=== PATIENT | female | born 1950 | race Native Hawaiian/Other Pacific Islander ===

== ENCOUNTER 2021-08-07 13:32 | Inpatient (IN) | payer MEDICARE, SELFPAY ==
[2021-08-07] VITALS (9 sets, daily range): BP systolic 117–167; BP diastolic 74–100; PULSE 99–110; RESP 15–20; TEMP 36.3–37.2; O2SAT 97–100; BMI 36.3; BMI 32.7; BMI 32.9
--- NOTE | 2021-08-07 14:47 | RAD_ITS ---
STUDY: X-RAY - LEFT FOOT CLINICAL: Female, 71 years old. wound TECHNIQUE: 3 view(s) of the foot. COMPARISON: Left foot x-ray dated May 22, 2017. FINDINGS: Mild to moderate cortical and intramedullary erosion has occurred at the needle side of the base of the proximal phalanx of the great toe and the medial side of the head and neck of the first metatarsal bone, compatible with osteomyelitis. Mild osteomyelitis is also seen on the lateral side of the base of the proximal phalanx of the great toe. The overlying soft tissue is indurated small amount of subcutaneous gas and is thickened and edematous. Bandage material is also present over this region. Bony structures are diffusely demineralized. The phalanges of the fifth digit have been previously amputated with exception of the base fragment proximal phalanx. The medial and lateral sides of the head of the fifth metatarsal bone are partially absent, most likely due to prior osteomyelitis, since the margins are corticated. Atherosclerotic calcifications are present. Normal talus, calcaneus, and tarsal bones. Normal visualized subtalar, talonavicular, calcaneocuboid, tarsal and tarsometatarsal articulations. RAD/Foot min 3 Views IMPRESSION: 1. Osteomyelitis of the base of the proximal talus of the great toe and the head and neck of the first metatarsal bone. Electronically Signed: Marco Cruz MD at 16:53 EDT , Service support ,
--- NOTE | 2021-08-07 14:49 | EX.ED.DYSGE1 ---
HPI History of Present Illness Chief Complaint: Wound Detail of Chief Complaint: Wound to left foot Informant: patient Narrative Narrative: Patient presents with complaint of wound to the left foot that she has had for about a month. Patient has history of chronic ulcers to her feet. She is here from [place] and has been in town for about a week but her daughter states that she may not go back to [place]. Prior to coming to [place] she had recently had resection of her left small toe due to history of osteomyelitis. Daughter states that she has a wound on her left foot over the first MTP joint that continues to bleed and she noticed pus from it. No fevers. 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 [facility] Medical History (Updated 08/07/21 @ 16:[address] Neetu Guerrier DO) Myocardial infarction Home Medications atorvastatin 80 mg PO QHS #30 tab 04/22/17 [Rx Last Taken Unknown] clopidogrel 75 mg PO DAILY #30 tab 04/22/17 [Rx Last Taken Unknown] multivitamin with folic acid [Thera] 1 tab PO DAILYCM #30 tab 04/22/17 [Rx Last Taken Unknown] nortriptyline 50 mg PO QHS #30 capsule 04/22/17 [Rx Last Taken Unknown] polyethylene glycol 3350 17 g PO DAILY #30 packet 04/22/17 [Rx Last Taken Unknown] Levemir FlexTouch U-100 Insuln 5 units SUBCUT DAILY 08/07/21 [History Last Taken Unknown] amlodipine 10 mg PO DAILY 08/07/21 [History Last Taken Unknown] aspirin 81 mg PO DAILY 08/07/21 [History Last Taken Unknown] docusate sodium 200 mg PO BID 08/07/21 [History Last Taken Unknown] furosemide 40 mg PO DAILY 08/07/21 [History Last Taken Unknown] gabapentin 30 mg PO BID 08/07/21 [History Last Taken Unknown] gabapentin 800 mg PO QHS 08/07/21 [History Last Taken Unknown] insulin aspart U-100 [Novolog Flexpen U-100 Insulin] 0 - 10 unit SUBCUT 4X/DAY 08/07/21 [History Last Taken Unknown] levothyroxine 200 mcg PO DAILY@0600 08/07/21 [History Last Taken Unknown] metoprolol tartrate 25 mg PO BID 08/07/21 [History Last Taken Unknown] pantoprazole 40 mg PO DAILY 08/07/21 [History Last Taken Unknown] potassium chloride [Micro-K 10] 10 meq PO DAILY 08/07/21 [History Last Taken Unknown] Allergy/AdvReac Type Severity Reaction Status Date / Time baclofen AdvReac Other Verified 08/07/21 13:36 Social History Smoking Status: Never smoker ROS ROS ED Constitutional Constitutional ED: Reports systems reviewed and no addt'l complaints, except as documented; Denies body ache(s), change in weight or chills Eyes Eyes: Denies acute decrease in peripheral vision, change in vision, double vision or loss of vision ENT ENT ED: Reports none; Denies ear pain, lip swelling, loss taste/smell, neck pain, otalgia or sore throat Cardiovascular Cardiovascular: Reports none; Denies abdominal pain, chest pain with activity, leg edema, lightheadedness, palpitations, rapid heart rate or syncope Respiratory/Chest Respiratory/Chest: Reports none; Denies change in mental status, dry cough, dyspnea, hemoptysis, shortness of breath at rest or shortness of breath with exertion Gastrointestinal Gastrointestinal: Reports none; Denies abdominal pain, change in stool character, diarrhea, hematemesis, hematochezia, melena, rectal bleeding or vomiting Genitourinary Genitourinary ED: Reports none; Denies abdominal discomfort, anuria, dysuria, genital pain or polyuria Musculoskeletal Musculoskeletal: Reports none and other Details: Left foot diabetic wound ; Denies arthralgias, back pain, difficulty walking, extremity pain, muscle weakness or myalgias Integumentary Reports none; Denies abscess or rash Neurologic Neurologic: Reports none; Denies abnormal gait, confusion, focal weakness, frequent falls, headache(s), loss of vision, numbness, paresthesias, radicular pain, vertigo or weakness Psychiatric Psychiatric: Reports systems reviewed and no addt'l complaints, except as documented and none; Denies behavioral changes, confusion, difficulty concentrating, hallucinations, suicidal ideation, tactile hallucinations or visual hallucinations Endocrine Endocrinology: Denies none, cold intolerance, excessive sweating, fatigue or heat intolerance Hematologic/Lymphatic Hematologic/Lymphatic: Reports none; Denies anemia, easy bleeding or easy bruising Allergic/Immunologic Allergic/Immunologic ED: Denies as per HPI, none, lip swelling, mouth swelling, throat swelling, tongue swelling or hives EXAM Physical Exam Const Vital Signs: 08/07/21 13:33 08/07/21 15:40 08/07/21 16:04 Temperature 97.4 F L 98.9 F 98.9 F Temperature Source Temporal Oral Oral Pulse Rate 99 101 H 106 H Respiratory Rate 18 20 H 15 Blood Pressure 123/74 H 167/79 H 159/83 H Blood Pressure Mean 90 108 108 Pulse Ox 99 97 99 Oxygen Delivery Method Room Air Room Air Room Air Positive well nourished and well developed General Appearance ED: well developed and NAD HEENT Reports TM's clear and moist mucous membranes normocephalic and atraumatic; Negative for trauma or tenderness Tympanic Membrane ED: Yes TM's clear Eyes PERRL and EOMs intact bilaterally General Eye ED: Negative for pale conjunctiva or scleral icterus Neck no lymphadenopathy, supple and no JVD General: Negative for tenderness Chest Wall inspection of chest normal and palpation of chest normal Chest: Negative for tenderness Resp normal respiratory effort and clear to auscultation bilaterally Effort and Inspection: Negative for respiratory distress or pain with movement Auscultation: Negative for rhonchi, wheezes or diminished lung sounds Cardio regular rate, regular rhythm, S1 normal heart sound, S2 normal heart sound and no murmurs Peripheral Pulses: pulses 2+ throughout GI normal to inspection, nondistended, normoactive bowel sounds, soft to palpation, non-tender, non-distended and no masses Back/Spine no CVA tenderness and no thoracic nor lumbar tenderness Extremity Extremity Narrative: Left foot-patient has a large open wound over the lateral aspect of the first MTP joint that is foul-smelling and having bloody drainage from it. Patient also has a small open wound to the plantar aspect of the midfoot. Patient also with recent resection to the left small toe. Patient has decreased sensation to light touch. General Extremety ED: Negative for edema General Extremity: Negative for edema Neuro oriented x3, CN's II-XII intact bilaterally, no sensory deficits noted and gait normal Sensorium / Orientation: awake, alert, oriented to person, oriented to place and oriented to time Motor Exam: strength 5/5 throughout and strength abnormal Psych mental status grossly normal Skin no rashes or lesions noted and no wounds MDM MDM MDM Narrative Medical decision making narrative: Patient started on Ancef and vancomycin IV. X-ray shows osteomyelitis of the first metatarsal and phalanx of the great toe. Case will be discussed with hospitalist evaluate for admission. Patient will likely require podiatry consultation. Patient also with diabetic foot wounds to the left foot. Patient had wound cultures ordered. Lab Data Attestation: I reviewed the patient's lab results. Labs: Laboratory Results - last 24 hr 08/07/21 08/07/21 08/07/21 15:11 15:11 15:11 WBC 11.5 H RBC 3.53 L Hgb 9.6 L Hct 30.5 L MCV 86.4 MCH 27.2 MCHC 31.5 L RDW Std Deviation 44.0 H RDW Coeff of Jenna 14.1 Plt Count 391 MPV 8.5 Immature Gran % (Auto) 0.700 Neut % (Auto) 80.4 H Lymph % (Auto) 11.4 L [place] % (Auto) 5.2 Eos % (Auto) 1.9 Baso % (Auto) 0.4 Absolute Neuts (auto) 9.3 H Absolute Lymphs (auto) 1.32 Nucleated RBC % 0 Sodium 135 L Potassium 4.0 Chloride 102 Carbon Dioxide 23.0 Anion Gap 10 BUN 61 H Creatinine 1.95 H Estim Creat Clear Calc 20.93 Est GFR (MDRD) Af Amer 33 L Est GFR (MDRD) Non-Af 27 L BUN/Creatinine Ratio 31.3 H Glucose 215 H Lactic Acid 2.1 H* Calcium 9.0 C-React Prot Ext Range 106.00 H Radiography Diagnostic Testing: Radiology Impression Foot X-Ray 08/07/21 14:47 IMPRESSION: 1. Osteomyelitis of the base of the proximal talus of the great toe and the head and neck of the first metatarsal bone. Electronically Signed: Marco Cruz MD at 16:53 EDT , Service support , Three-view x-rays of the left foot obtained interpreted by myself as osteomyelitis of the head of the first metatarsal. Radiology in agreement. Discharge Plan Triage Chief Complaint: Wound ED Provider: Neetu Guerrier Dx/Rx/DC Orders Clinical Impression: Diabetic foot infection, Acute osteomyelitis of left foot Prescriptions: No Action atorvastatin 80 MG tablet 80 mg PO QHS Qty: 30 RF: 0 polyethylene glycol 3350 17 GM powder in packet 17 g PO DAILY Qty: 30 RF: 0 nortriptyline 25 MG capsule 50 mg PO QHS Qty: 30 RF: 0 clopidogrel 75 MG tablet 75 mg PO DAILY Qty: 30 RF: 0 multivitamin with folic acid [Thera] 1 TABLET tablet 1 tab PO DAILYCM Qty: 30 RF: 0 furosemide 40 mg Tablet 40 mg PO DAILY RF: 0 potassium chloride [Micro-K 10] 10 mEq Capsule, Extended Release 10 meq PO DAILY RF: 0 amlodipine 10 mg Tablet 10 mg PO DAILY RF: 0 docusate sodium 100 mg Capsule 200 mg PO BID RF: 0 insulin aspart U-100 [Novolog Flexpen U-100 Insulin] 100 unit/mL (3 mL) Insulin Pen 0 - 10 unit SUBCUT 4X/DAY RF: 0 metoprolol tartrate 25 mg Tablet 25 mg PO BID RF: 0 aspirin 81 mg Capsule 81 mg PO DAILY RF: 0 gabapentin 600 MG tablet 30 mg PO BID RF: 0 pantoprazole 20 MG tablet,delayed release (DR/EC) 40 mg PO DAILY RF: 0 levothyroxine 150 MCG tablet 200 mcg PO DAILY@0600 RF: 0 gabapentin 300 MG capsule 800 mg PO QHS RF: 0 Levemir FlexTouch U-100 Insuln 100 UNITS/ML insulin pen 5 units subcut DAILY RF: 0 Primary Care Provider: Elia Ceja Chi Referrals: Elia Ceja Chi, MD [Primary Care Provider] - Disposition Disposition: Acute Care Hospital [facility]
[2021-08-07 15:23] LABS: Absolute Lymphocyte Count 1.32 X10^3/uL (0.83-4.51); Absolute Neutrophil Count 9.3 X10^3/uL (2.0-7.7); Basophil# 0.05 X10^3/uL; Basophil% 0.4 % (0-1); Eosinophil# 0.22 X10^3/uL; Eosinophils% 1.9 % (0-5); Hematocrit 30.5 % (37-47); Hemoglobin 9.6 g/dL (12.0-15.0); Lymphocyte # 1.32 X10^3/ul (0.83-4.51); Lymphocyte % 11.4 % (19-41); Mean Corp Hgb Conc 31.5 g/dL (32-36); Mean Corpuscular Hgb 27.2 pg (27.0-32.0); Mean Corpuscular Volume 86.4 fL (81-99); Mean Platelet Vol. 8.5 fl (6.2-12.0); Monocyte% 5.2 % (0-10); NRBC Flagged by Analyzer 0 % (0-5); Neutrophil # 9.27 X10^3/uL (2.7-7.7); Neutrophil % 80.4 % (47-70); Platelet Count 391 K/mm3 (150-450); RBC Distribution Width CV 14.1 % (11.6-14.6); Red Blood Count 3.53 M/mm3 (4.2-5.4); White Blood Count 11.5 K/mm3 (4.4-11.0)
[2021-08-07 15:36] LABS: Anion Gap 10 (5-15); BUN 61 mg/dL (7-18); BUN/Creat Ratio 31.3 RATIO (10-20); Chloride 102 mmol/L (98-107); Creatinine, Serum 1.95 mg/dL (0.55-1.02); EST Glomerular Filtration Rate 27 mL/min (>60); Est Glom Filt Rate - Afr Amer 33 mL/min (>60); Estimated Creatinine Clearance 20.93 ml/min; Glucose 215 mg/dL (74-106); Sodium Level 135 mmol/L (136-145)
[2021-08-07 15:58] LABS: Lactic Acid 2.1 mmol/L (0.4-1.9)
[2021-08-07] MEDS: Cefazolin 1 GM/50 ML BAG IV (16:06)
--- NOTE | 2021-08-07 17:37 | PCM.HP.STD ---
HPI - General General Date of Admission: 08/07/21 HPI Narrative EBONIE WOLF, is a 71 F who presents with worsening a left lower extremity wound. She does have a history of diabetic foot ulcers that has been previously treated here at this facility a couple years ago. This when she started noticing about a month ago while she was living in [place] states that they did not do anything about it there at the wound center other than just cleaning the wound. The daughter brought her in today because every time she was helping her mom she noticed that blood and pus was coming out of the wound. She tried to call her PCP but could not get through and therefore called the wound center who recommended to go to an urgent care but daughter did not know where the urgent care was so they brought her here. She is afebrile without leukocytosis though states that she has had chills. Foot x-ray of the left shows an osteomyelitis. Per the daughter she has had CABG with multiple heart stents as well as multiple lower extremity stents. [facility] Medical History Chest pain Chronic headaches Current use of insulin Depression Difficulty chewing Difficulty swallowing DVT (deep venous thrombosis) Dyspnea High cholesterol History of stress test Irregular heartbeat Myocardial infarction Paralysis Post-menopausal Renal disease Restless legs Sleep apnea Status post amputation of toe of left foot Stroke Thyroiditis Ulcer Home Medications atorvastatin 80 mg PO QHS #30 tab 04/22/17 [Rx Last Taken Unknown] clopidogrel 75 mg PO DAILY #30 tab 04/22/17 [Rx Last Taken Unknown] multivitamin with folic acid [Thera] 1 tab PO DAILYCM #30 tab 04/22/17 [Rx Last Taken Unknown] nortriptyline 50 mg PO QHS #30 capsule 04/22/17 [Rx Last Taken Unknown] polyethylene glycol 3350 17 g PO DAILY #30 packet 04/22/17 [Rx Last Taken Unknown] Levemir FlexTouch U-100 Insuln 5 units SUBCUT DAILY 08/07/21 [History Last Taken Unknown] amlodipine 10 mg PO DAILY 08/07/21 [History Last Taken Unknown] aspirin 81 mg PO DAILY 08/07/21 [History Last Taken Unknown] docusate sodium 200 mg PO BID 08/07/21 [History Last Taken Unknown] furosemide 40 mg PO DAILY 08/07/21 [History Last Taken Unknown] gabapentin 30 mg PO BID 08/07/21 [History Last Taken Unknown] gabapentin 800 mg PO QHS 08/07/21 [History Last Taken Unknown] insulin aspart U-100 [Novolog Flexpen U-100 Insulin] 0 - 10 unit SUBCUT 4X/DAY 08/07/21 [History Last Taken Unknown] levothyroxine 200 mcg PO DAILY@0600 08/07/21 [History Last Taken Unknown] metoprolol tartrate 25 mg PO BID 08/07/21 [History Last Taken Unknown] pantoprazole 40 mg PO DAILY 08/07/21 [History Last Taken Unknown] potassium chloride [Micro-K 10] 10 meq PO DAILY 08/07/21 [History Last Taken Unknown] Allergy/AdvReac Type Severity Reaction Status Date / Time baclofen AdvReac Other Verified 08/07/21 13:36 Family History (Updated 08/07/21 @ 17:[address] Pritesh Cervantes MD) Other Diabetes Heart disease Surgical History History of heart artery stent S/P tubal ligation Status post arterial stent Status post coronary artery bypass graft Status post coronary artery stent placement Status post hysterectomy Social History Smoking Status: Never smoker ROS Constitutional Constitutional: Reports chills; Denies fatigue, fever(s) or malaise Eyes Eyes: Denies blurry vision ENT HEENT: Denies headache(s) or nasal discharge Cardiovascular Cardiovascular: Denies chest pain, dyspnea on exertion or syncope Respiratory/Chest Respiratory/Chest: Denies cough, shortness of breath at rest or shortness of breath with exertion Gastrointestinal Gastrointestinal: Denies constipation, diarrhea, nausea or vomiting Genitourinary Genitourinary: Denies dysuria Integumentary Integumentary: Reports wounds Neurologic Neurologic: Denies focal weakness, numbness or tremor(s) Psychiatric Psychiatric: Denies anxiety or depression Vital Signs Vital Signs Vital Signs: 08/07/21 13:33 08/07/21 15:40 08/07/21 16:04 Temperature 97.4 F L 98.9 F 98.9 F Temperature Source Temporal Oral Oral Pulse Rate 99 101 H 106 H Respiratory Rate 18 20 H 15 Blood Pressure 123/74 H 167/79 H 159/83 H Blood Pressure Mean 90 108 108 Pulse Ox 99 97 99 Oxygen Delivery Method Room Air Room Air Room Air 08/07/21 17:15 Temperature 98.8 F Temperature Source Oral Pulse Rate 99 Respiratory Rate 18 Blood Pressure 150/92 H Blood Pressure Mean 111 Pulse Ox 97 Oxygen Delivery Method Room Air Weight Weight: 198 lb 6.656 oz Body Mass Index (BMI) 36.3 Physical Exam Const alert, oriented x3 and no apparent distress General Appearance: cooperative HEENT normocephalic and moist oral mucous membranes Eyes PERRL, EOMs intact bilaterally and conjunctivae normal Neck supple and no JVD Resp normal respiratory effort, no retractions, no use of accessory muscles and clear to auscultation bilaterally Auscultation: Negative for crackles, rales, rhonchi or wheezes Cardio regular rate, regular rhythm, S1 normal heart sound, S2 normal heart sound and no murmurs GI soft to palpation, non-tender and non-distended; Negative for hepatosplenomegaly Extremity no clubbing, cyanosis or edema Skin Skin Narrative: Left foot wound dressed Neuro no focal motor deficits and no sensory deficits noted Psych affect normal Appearance: appropriate Results Lab / Micro Data Result Diagrams: 08/08/21 05:04 08/08/21 05:04 Labs: Laboratory Results - last 24 hr 08/07/21 15:11: WBC 11.5 H, RBC 3.53 L, Hgb 9.6 L, Hct 30.5 L, MCV 86.4, MCH 27.2, MCHC 31.5 L, RDW Std Deviation 44.0 H, RDW Coeff of Jenna 14.1, Plt Count 391, MPV 8.5, Immature Gran % (Auto) 0.700, Neut % (Auto) 80.4 H, Lymph % (Auto) 11.4 L, [place] % (Auto) 5.2, Eos % (Auto) 1.9, Baso % (Auto) 0.4, Absolute Neuts (auto) 9.3 H, Absolute Lymphs (auto) 1.32, Nucleated RBC % 0 08/07/21 15:11: Sodium 135 L, Potassium 4.0, Chloride 102, Carbon Dioxide 23.0, Anion Gap 10, BUN 61 H, Creatinine 1.95 H, Estim Creat Clear Calc 20.93, Est GFR (MDRD) Af Amer 33 L, Est GFR (MDRD) Non-Af 27 L, BUN/Creatinine Ratio 31.3 H, Glucose 215 H, Calcium 9.0, C-React Prot Ext Range 106.00 H 08/07/21 15:11: Lactic Acid 2.1 H* Radiology Impression Foot X-Ray 08/07/21 14:47 IMPRESSION: 1. Osteomyelitis of the base of the proximal talus of the great toe and the head and neck of the first metatarsal bone. Electronically Signed: Marco Cruz MD at 16:53 EDT , Service support , Assessment & Plan Assessment/Plan (1) Osteomyelitis of great toe of left foot: (2) Ulcer of left foot due to type 2 diabetes mellitus: (3) Peripheral vascular disease: PLAN: 1. Osteomyelitis of the great toe secondary to diabetic foot ulcer/type 2 diabetes with peripheral neuropathy/peripheral vascular disease -Continue with vancomycin and cefepime -Continue with IV fluids, will hold her Lasix temporarily kidney function is 1.95 the last values we have are from 2017 therefore not sure if this is her new baseline or an PEDRO -We will consult infectious disease as well as podiatry -We will obtain ABIs -Blood cultures and wound cultures are pending -We will place her on sliding scale insulin, as well long-acting insulin -Accu-Cheks AC at bedtime, will adjust as necessary -Continue with her gabapentin 2. CAD status post CABG and stents/peripheral vascular disease/HTN/HLD -We will continue with her home blood pressure medications -We will hold her aspirin and Plavix in preparation of surgery -Continue with Lipitor 3. Hypothyroidism -Stable -Continue Synthroid 4. GERD -Stable -Continue with PPI DVT: Heparin Charges/Coding Visit Charges Inpatient E&M: 13219 Init Hosp L3
--- NOTE | 2021-08-07 17:47 | ART_ITS ---
Reason For Study: PVD Procedure A bilateral lower extremity continuous wave Doppler with analog waveform analysis and ankle brachial indexes. Left Segmental Pressures Left brachial= 157mmHg. Left posterior tibial artery = 79mmHg. Right Segmental Pressures Right posterior tibial artery = 59mmHg. Right dorsalis pedis artery = >254mmHg. Right digit = 26 mmHg. Indices The right ankle brachial index by the posterior tibial artery is 0.38. The right ankle brachial index by the dorsalis pedis is NC. The right digital-brachial index is 0.17. The left ankle brachial index by the posterior tibial artery is 0.50. VL/Ankle Brachial Index Interpretation Summary Limited abnormal bilateral lower extremity noninvasive arterial exam at rest Right PT ankle-brachial index 0.38 with monophasic right posterior tibial and d orsalis pedis Doppler waveforms consistent with severe occlusive disease Left posterior tibial ankle-brachial index 0.5 with a monophasic left posterior tibial and absent left dorsalis pedis Doppler waveform consistent with severe occlusive disease Ordering Physician: Pritesh Cervantes Referring Physician: Elia Ceja Chi Performed By: Fatmata Abarca RDCS/RVT
--- NOTE | 2021-08-07 18:05 | CON.PCM_ITS ---
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 I reviewed her emergency room and hospitalist notes. She has a clinical infected foot with ulcers to the medial lateral forefoot and also the anterior ankle. Her multiple comorbidities are noted. Debridement was performed today with a medical scissor and forceps to remove necrotic subcutaneous and muscle tissue, biofilm, fibrous, and slough. Pressure was applied to maintain hemostasis. She had discomfort was controlled and short-lived. The following work up and care recommendations were made: Dressing: Betadine wet-to-dry gauze was applied this evening. Offload: To place weight on heel and remain in bed for the most part at this time Vascular: She has known peripheral vascular disease and her medical records are requested. She has significant small vessel calcification even seen on her foot x-rays. She is at risk for limb loss and appears she would benefit from an amputation. Medical records were requested to determine if a below-knee amputation versus a transmetatarsal amputation will be more appropriate. If these records are not obtainable in a timely manner, a debridement of the foot will still be recommended to address her acute limb and life-threatening infection. Pain: Controlled with oral and IV pain medication Host factors: She is uncontrolled diabetes and known peripheral vascular disease amongst her other comorbidities. Medical management per hospitalist is greatly appreciated. Nutritional supplementation was ordered to optimize healing. Imagin foot x-rays were reviewed without acute fracture or dislocation. There is osseous destruction adjacent to the medial first metatarsal head ulcer site and to the fifth toe amputation site. There is no soft tissue emphysema. Significant small vessel calcification is noted. I recommend an MRI for further work-up of extent of osteomyelitis and other limb abscess evaluation. She relates she has had other MRIs and does not have any maintained vascular clips. She denies claustrophobia. Labs: She has an elevated lactic acid and white blood cell count. Other diagnostic data was also reviewed. Infection: She was started on vancomycin and cefepime. Deep wound cultures were obtained including aerobic, anaerobic, and MRSA PCR. ID on consult and input w ill be greatly appreciated. She already has limb loss and her current infected ulcer status is limb and life-threatening. Treatment options include antibiotics and wound care. It appears pertinent to at the very least perform an aggressive debridement to remove the purulence and necrotic tissue. Surgical considerations: I recommend proceeding forward with further work-up this evening and going to the operating room tomorrow for versa jet debridement versus open transmetatarsal amputation. She may even be better served with a below-knee amputation. N.p.o. Anticoagulation medication held (heparin and Plavix). Consents will be signed after surgical procedure is selected. Case was briefly reviewed with hospitalist. I answered all the patient's questions. Thank you for the consultation. Please do not hesitate to call if you have any questions. Cristal Schmitz DPM, [facility] [phone] HPI Consult Data Date of Consult: 08/07/21 HPI Narrative HPI Narrative: EBONIE WOLF, is a 71 F presents to [facility] for left foot infection. She said that this has been present for 1 to 1-1/2 months per her knowledge and she has been seen at a wound care center with a nail technician teacher in [place]. She is returned home to visit other family members and has become ill. There is an increased odor bleeding and purulent drainage from her left foot. She denies new injury. Patient is participating in a minimal manner in the exam possibly secondary to her stroke status. Her daughter is bedside and does report she had some stents placed in her left lower leg within the past year. She provided the hospitals in which she was seen at and her medical records have been requested. This patient is previously known to me in 2017 for a heel ulcer that got infected. [facility] Medical History (Updated 08/07/21 @ 17:[address] Pritesh Cervantes MD) Myocardial infarction Status post amputation of toe of left foot Home Medications atorvastatin 80 mg PO QHS #30 tab 04/22/17 [Rx Last Taken Unknown] clopidogrel 75 mg PO DAILY #30 tab 04/22/17 [Rx Last Taken Unknown] multivitamin with folic acid [Thera] 1 tab PO DAILYCM #30 tab 04/22/17 [Rx Last Taken Unknown] nortriptyline 50 mg PO QHS #30 capsule 04/22/17 [Rx Last Taken Unknown] polyethylene glycol 3350 17 g PO DAILY #30 packet 04/22/17 [Rx Last Taken Unknown] Levemir FlexTouch U-100 Insuln 5 units SUBCUT DAILY 08/07/21 [History Last Taken Unknown] amlodipine 10 mg PO DAILY 08/07/21 [History Last Taken Unknown] aspirin 81 mg PO DAILY 08/07/21 [History Last Taken Unknown] docusate sodium 200 mg PO BID 08/07/21 [History Last Taken Unknown] furosemide 40 mg PO DAILY 08/07/21 [History Last Taken Unknown] gabapentin 30 mg PO BID 08/07/21 [History Last Taken Unknown] gabapentin 800 mg PO QHS 08/07/21 [History Last Taken Unknown] insulin aspart U-100 [Novolog Flexpen U-100 Insulin] 0 - 10 unit SUBCUT 4X/DAY 08/07/21 [History Last Taken Unknown] levothyroxine 200 mcg PO DAILY@0600 08/07/21 [History Last Taken Unknown] metoprolol tartrate 25 mg PO BID 08/07/21 [History Last Taken Unknown] pantoprazole 40 mg PO DAILY 08/07/21 [History Last Taken Unknown] potassium chloride [Micro-K 10] 10 meq PO DAILY 08/07/21 [History Last Taken Unknown] Allergy/AdvReac Type Severity Reaction Status Date / Time baclofen AdvReac Other Verified 08/07/21 13:36 Family History (Updated 08/07/21 @ 17:[address] Pritesh Cervantes MD) Other Diabetes Heart disease Surgical History (Updated 08/07/21 @ 17:[address] Pritesh Cervantes MD) Status post arterial stent Status post coronary artery bypass graft Status post coronary artery stent placement Status post hysterectomy Social History Smoking Status: Never smoker ROS Constitutional Constitutional: Reports lethargy; Denies chills Cardiovascular Cardiovascular: Reports weakness in extremities Gastrointestinal Gastrointestinal: Denies nausea Musculoskeletal Musculoskeletal: Reports muscle weakness Integumentary Integumentary: Reports bleeding lesions and wounds; Denies erythema Neurologic Neurologic: Reports paresthesias Hematologic/Lymphatic Hematologic/Lymphatic: Reports easy bleeding Physical Exam Const alert and oriented x3 General Appearance: cooperative HEENT normocephalic Extremity Extremity Narrative: No calf tenderness Diminished pulses Muscle wasting noted Left open fifth toe amputation with exposed bone General Extremity: edema and no tenderness to palpation of joints or extremities; Negative for cyanosis Skin Skin Narrative: There is bogginess to the dorsal forefoot with purulence expressed from the medial first metatarsal head site. There is necrotic strong malodor and devitalized 100% base to the medial first metatarsal head and also to the open fifth nutation site. Medial ulcer site has dorsal tunneling with purulence expressed from a boggy adjacent area to the dorsal forefoot and midfoot. Her skin is hairless and atrophic. There is also skin discontinuity to the anterior ankle that is granular with fibrous tissue. Hematogenous drainage is noted from the medial forefoot and anterior ankle wounds and to a lesser degree to the lateral forefoot. There is actually no streaking. Neuro Neuro Narrative: lack of normal epicritic sensation via light touch is consistent with neuropathy status. Her exam is painful including the debridement Psych cooperative and affect normal Lab / Micro Data Result Diagrams: 08/07/21 15:11 08/07/21 15:11 Labs: Laboratory Results - last 24 hr 08/07/21 15:11: WBC 11.5 H, RBC 3.53 L, Hgb 9.6 L, Hct 30.5 L, MCV 86.4, MCH 27.2, MCHC 31.5 L, RDW Std Deviation 44.0 H, RDW Coeff of Jenna 14.1, Plt Count 391, MPV 8.5, Immature Gran % (Auto) 0.700, Neut % (Auto) 80.4 H, Lymph % (Auto) 11.4 L, [place] % (Auto) 5.2, Eos % (Auto) 1.9, Baso % (Auto) 0.4, Absolute Neuts (auto) 9.3 H, Absolute Lymphs (auto) 1.32, Nucleated RBC % 0 08/07/21 15:11: Sodium 135 L, Potassium 4.0, Chloride 102, Carbon Dioxide 23.0, Anion Gap 10, BUN 61 H, Creatinine 1.95 H, Estim Creat Clear Calc 20.93, Est GFR (MDRD) Af Amer 33 L, Est GFR (MDRD) Non-Af 27 L, BUN/Creatinine Ratio 31.3 H, Glucose 215 H, Calcium 9.0, C-React Prot Ext Range 106.00 H 08/07/21 15:11: Lactic Acid 2.1 H* Radiology Impression Foot X-Ray 09/30/21 14:47 IMPRESSION: 1. Osteomyelitis of the base of the proximal talus of the great toe and the head and neck of the first metatarsal bone. Electronically Signed: Marco Cruz MD at 16:53 EDT , Service support ,
[2021-08-07 18:22] LABS: Hemoglobin A1c 6.9 % (3.8-5.6)
[2021-08-07 18:24] LABS: Thyroid Stim Hormone (TSH) < 0.01 uIU/mL (0.358-3.74)
[2021-08-07] MEDS: Morphine 2 MG/ML Syringe IV (18:29)
--- NOTE | 2021-08-07 19:03 | RAD_ITS ---
STUDY: X-RAY - LEFT ANKLE REASON FOR EXAM: Female, 71 years old. Infection, chronic anterior ankle wound TECHNIQUE: 3 view(s) of the ankle. COMPARISON: Comparison is made with prior examination dated 03/31/2017. FINDINGS: Normal visualized distal tibia and fibula. Normal medial and lateral malleoli. Normal tibiotalar articulation and ankle mortise. Diffuse osteopenia of the calcaneus and talus. There is evidence of focal area of demineralization along the anterior aspect of the calcaneus. Possible focal area of destruction should be ruled out. A similar appearing area of decreased density is also seen in the plantar aspect of the talus. The visualized subtalar, talonavicular, calcaneocuboid and tarsal articulations are normal. Diffuse soft tissue swelling. Mesenteric calcification. RAD/Ankle min 3 Views IMPRESSION: Diffuse soft tissue swelling. Lucency seen in the calcaneus and talus as described. Osteomyelitis should be ruled. Electronically Signed: Donny Mariee MD at 10:33 EDT , Service support ,
[2021-08-07 19:17] LABS: Reflex Lactate? Y
--- NOTE | 2021-08-07 19:48 | PCM.RX.CS ---
Consult Pharmacy has been consulted to manage selected antiobiotic: Vancomycin Type of Consult: New start Suspected Infection: Osteomyelitis Prior Doses of Antibiotics Received/Current Regimen: Received 1250mg iv x 1 in ER. Labs: Sodium 135 mmol/L (136-145) L 08/07/21 15:11 Potassium 4.0 mmol/L (3.5-5.1) 08/07/21 15:11 Chloride 102 mmol/L (98-107) 08/07/21 15:11 Carbon Dioxide 23.0 mmol/L (21.0-32.0) 08/07/21 15:11 Anion Gap 10 (5-15) 08/07/21 15:11 BUN 61 mg/dL (7-18) H 08/07/21 15:11 Creatinine 1.95 mg/dL (0.55-1.02) H 08/07/21 15:11 Est GFR (MDRD) Af Amer 33 mL/min (>60) L 08/07/21 15:11 Est GFR (MDRD) Non-Af 27 mL/min (>60) L 08/07/21 15:11 BUN/Creatinine Ratio 31.3 RATIO (10-20) H 08/07/21 15:11 Glucose 215 mg/dL (74-106) H 08/07/21 15:11 Weight used for dosin.2 kg Estimated Creatinine Clearance: 21ml/min Goal Trough: 15-20 mcg/mL Pharmacy Plan for Drug Dosing: Will begin 750mg iv q24h per protocol. Trough level ordered for before 3rd total dose. Pharmacy Service will continue to monitor and adjust dosing as required. Follow-Up Labs: Trough Vancomycin - 10.2.21 @1630 before 1700 dose
[2021-08-07 20:36] LABS: Lactic Acid 1.8 mmol/L (0.4-1.9)
[2021-08-07] MEDS: 0.9% Normal Saline 1,000 ML 75 ML IV (20:42)
[2021-08-07 20:44] LABS: Staph aureus DNA By PCR POSITIVE (Negative)
[2021-08-07 20:45] LABS: Probe Check PASS
[2021-08-07 20:47] LABS: M R Staph aureus DNA By PCR POSITIVE (Negative)
[2021-08-07] MEDS: Nortriptyline 25 MG Capsule 50 MG PO (21:43)
[2021-08-07] MEDS: Atorvastatin Calcium 80 MG Tablet PO (21:43)
[2021-08-07] MEDS: Gabapentin 400 MG Capsule 800 MG PO (21:43)
[2021-08-07] MEDS: Docusate Sodium 100 MG Capsule 200 MG PO (21:43)
[2021-08-07] MEDS: Metoprolol Tartrate 25 MG Tablet PO (21:43)
[2021-08-07] MEDS: oxyCODONE 5 MG Tablet PO (21:49)
[2021-08-07] MEDS: MELATONIN 3 MG TABLET PO (21:50)
[2021-08-07 22:05] LABS: Bedside Glucose 186 mg/dL (70-110)
[2021-08-07] MEDS: Insulin Lispro 100 UNIT/ML INSULN.PEN SC (22:08)
[2021-08-08] VITALS (17 sets, daily range): BP systolic 109–149; BP diastolic 56–85; PULSE 66–95; RESP 16–18; TEMP 36.3–37; O2SAT 96–100; BMI 34.4
[2021-08-08 05:12] LABS: Absolute Lymphocyte Count 1.46 X10^3/uL (0.83-4.51); Absolute Neutrophil Count 6.7 X10^3/uL (2.0-7.7); Basophil# 0.05 X10^3/uL; Basophil% 0.5 % (0-1); Eosinophils% 3.2 % (0-5); Hematocrit 28.7 % (37-47); Hemoglobin 9.1 g/dL (12.0-15.0); Lymphocyte # 1.46 X10^3/ul (0.83-4.51); Lymphocyte % 15.7 % (19-41); Mean Corp Hgb Conc 31.7 g/dL (32-36); Mean Corpuscular Volume 85.2 fL (81-99); Mean Platelet Vol. 8.6 fl (6.2-12.0); Monocyte# 0.74 X10^3/uL; NRBC Flagged by Analyzer 0 % (0-5); Neutrophil # 6.68 X10^3/uL (2.7-7.7); Platelet Count 325 K/mm3 (150-450); RBC Distribution Width CV 14.2 % (11.6-14.6); RBC Distribution Width SD 43.8 fl (35.1-43.9); Red Blood Count 3.37 M/mm3 (4.2-5.4); White Blood Count 9.3 K/mm3 (4.4-11.0)
[2021-08-08 05:43] LABS: Anion Gap 9 (5-15); BUN 60 mg/dL (7-18); BUN/Creat Ratio 35.9 RATIO (10-20); Calcium,Total 8.8 mg/dL (8.5-10.1); Chloride 106 mmol/L (98-107); Creatinine, Serum 1.67 mg/dL (0.55-1.02); EST Glomerular Filtration Rate 32 mL/min (>60); Est Glom Filt Rate - Afr Amer 39 mL/min (>60); Estimated Creatinine Clearance 23.32 ml/min; Glucose 101 mg/dL (74-106); Sodium Level 136 mmol/L (136-145)
--- NOTE | 2021-08-08 05:55 | EKG12_ITS ---
Test Reason : AM EKG Blood Pressure : / mmHG Vent. Rate : 085 BPM Atrial Rate : 085 BPM P-R Int : 168 ms QRS Dur : 088 ms QT Int : 380 ms P-R-T Axes : 034 -09 072 degrees QTc Int : 452 ms Normal sinus rhythm Left ventricular hypertrophy Inferior infarct , age undetermined Septal NH, age undetermined Abnormal ECG Confirmed by TORY NELSON, UCHE ([id number]), pictures editor GYPSY BASS ([id number]) on 08/11/2021 7:27:18 AM Referred By: LISA Confirmed By:UCHE SPEARS MD
--- NOTE | 2021-08-08 06:00 | RAD_ITS ---
STUDY: X-RAY CHEST REASON FOR EXAM: Female, 71 years old. pre op TECHNIQUE: Portable, upright, AP chest radiograph COMPARISON: 06/04/2017 FINDINGS: The lungs are clear and expanded. There is no demonstrated pleural abnormality. Normal size heart. Sternal wires and CABG. Normal mediastinum and emma. Normal visualized pulmonary arteries. There is atherosclerotic calcification of the aortic arch with tortuosity. Normal visualized thoracic spine. Normal visualized ribs, clavicles, and shoulders. There is no demonstrated abnormality of the visualized soft tissue structures of the upper abdomen. RAD/Chest 1 View (Portable) IMPRESSION: No acute abnormal cardiopulmonary finding. Electronically Signed: Kuldeep Khan MD at 5:47 EDT Tel , Service support ,
[2021-08-08 06:06] LABS: Bedside Glucose 83 mg/dL (70-110)
--- NOTE | 2021-08-08 07:04 | MRI_ITS ---
STUDY: MRI LEFT FOREFOOT WITHOUT CONTRAST REASON FOR EXAM: Female, 71 years old. osteomyelitis, abscess TECHNIQUE: Standardized fat and water weighted pulse sequences were obtained in all 3 orthogonal planes. COMPARISON: X-ray dated 08/07/2021. FINDINGS: Acute bone destruction at the first metatarsal head, first proximal phalanx base and sesamoids (sagittal images 19 through 23 series 7). Acute bone destruction at the fifth proximal phalanx surgical stump (sagittal image 5 series 7). No acute fracture line. No acute dislocation. Lateral soft tissue ulceration (sagittal image 6 series 3) with extensive soft tissue swelling. Medial soft tissue swelling/ulceration. Plantar surface ulceration (axial images 7 through 11 series 6) with plantar surface organized fluid collection measuring 3 cm x 1.5 cm (short axis image 11 series 6). Diffuse muscle atrophy with additional muscle edema/myositis. Normal talonavicular joint. Normal navicular cuneiform joints. Minimal tarsometatarsal joint arthrosis. Moderate first metatarsophalangeal joint arthrosis. Normal second, third and fourth metatarsophalangeal joints. Mild first interphalangeal joint arthrosis. Mild/moderate joint space narrowing at the second, third and fourth digits. Surgical amputation of the fifth digit. Surgically truncated fifth flexor and extensor tendons. Remainder of the flexor and extensor tendons intact. Normal Lisfranc ligament. MRI/Lower Ext/No Jt/w/o IMPRESSION: Acute osteomyelitis involving the first metatarsal head, first proximal phalanx base, sesamoids and fifth proximal phalanx surgical stump Multiregional ulcerations with diffuse cellulitis and plantar surface abscess Diffuse muscle atrophy with muscle edema/myositis Surgically truncated fifth flexor and extensor tendons Mild/moderate multiregional osteoarthritis, as above Electronically Signed: Don Beard DO at 10:56 EDT Tel , Service support ,
--- NOTE | 2021-08-08 07:53 | PCM.RX.CS ---
Consult Pharmacy has been consulted to manage selected antiobiotic: Vancomycin Type of Consult: Follow-up Suspected Infection: Osteomyelitis Prior Doses of Antibiotics Received/Current Regimen: pt received 1250mg in E.R. on 08/07 at 1700 and was to be started on 750mg IV q24h tonight Labs: Sodium 136 mmol/L (136-145) 08/08/21 05:04 Potassium 4.0 mmol/L (3.5-5.1) 08/08/21 05:04 Chloride 106 mmol/L (98-107) 08/08/21 05:04 Carbon Dioxide 21.0 mmol/L (21.0-32.0) 08/08/21 05:04 Anion Gap 9 (5-15) 08/08/21 05:04 BUN 60 mg/dL (7-18) H 08/08/21 05:04 Creatinine 1.67 mg/dL (0.55-1.02) H 08/08/21 05:04 Est GFR (MDRD) Af Amer 39 mL/min (>60) L 08/08/21 05:04 Est GFR (MDRD) Non-Af 32 mL/min (>60) L 08/08/21 05:04 BUN/Creatinine Ratio 35.9 RATIO (10-20) H 08/08/21 05:04 Glucose 101 mg/dL (74-106) 08/08/21 05:04 Weight used for dosin.2 kg Estimated Creatinine Clearance: 30 ml/min Goal Trough: 15-20 mcg/mL Pharmacy Plan for Drug Dosing: The patient was to be started on vanc 750mg IV q24h later today at 17:00. However, due to improved renal function (SCr now at 1.67 today, down from 1.95 yesterday), will change the dose to 1000mg IV q24h. The timing of the trough level check will remain the same. The patient's CrCl of 30m/min was calculated using an adjusted body weight of 62.5kg. Pharmacy Service will continue to monitor and adjust dosing as required. Follow-Up Labs: Trough Vancomycin Labs to be done on [date and time ordered]: 08/09/21 16:30
[2021-08-08] MEDS: oxyCODONE 5 MG Tablet PO ×2 (08:44→21:20)
[2021-08-08] MEDS: Acetaminophen 325 MG Tablet 650 MG PO ×2 (08:44→21:20)
[2021-08-08] MEDS: Pantoprazole Sodium 40 MG Tablet PO (08:45)
[2021-08-08] MEDS: Metoprolol Tartrate 25 MG Tablet PO ×2 (08:45→21:32)
[2021-08-08] MEDS: amLODIPine 10 MG Tablet PO (08:45)
--- NOTE | 2021-08-08 09:44 | WOUNDNOTE ---
wound photo: left foot
--- NOTE | 2021-08-08 09:45 | WOUNDNOTE ---
wound photo: left anterior ankle
--- NOTE | 2021-08-08 09:45 | WOUNDNOTE ---
wound photo: left foot
--- NOTE | 2021-08-08 10:58 | CASEMGMT ---
Assessment- SW completed assessment with patient. She was lying in bed, alert and oriented X3. Living situation- Patient moved back to [place] a week ago to live with her daughter. The home is 3 levels, but she is able to stay on 1 level. PCP: She saw Dr Ceja when she lived here previously. She would like to continue seeing him. Specialists: None currently as she just moved back to [place] a week ago. Pharmacy: [facility] Pharmacy or [facility] DME: shower chair, bedside commode, and wheelchair ADL's/IADL's: Patient gets help with all iadl's and adl's. Past SNF/rehab: Yes in [place] Past HH: Yes in [place] LW: No POA: No Plan: Patient wants to return to her daughter's home. Therapy said patient and daughter were hoping patient can return home. It is unknown if this will be a viable option. Patient to have surgery on her foot. She will then have therapy again and we can see how she does. Patient had Medicaid in [place] so SW will give patient and her daughter a Medicaid application to complete. Patient does plan on staying in [place]. SARA and RN CM to follow. Anna ALDANA MSW
--- NOTE | 2021-08-08 11:30 | PN.HOSP_ITS ---
Subjective Subjective Doing well today, feels little bit better with IV fluids and antibiotics. MRI demonstrates multiple areas of osteomyelitis in her left foot ABIs demonstrate peripheral vascular disease Objective Data Objective Data Vital Signs: Vital Signs Temp Pulse Resp BP Pulse Ox 98.6 F 71 18 145/68 H 96 08/08/21 08:20 08/08/21 11:00 08/08/21 08:20 08/08/21 08:45 08/08/21 08:20 Oxygen Delivery Method Room Air Weight: 182 lb 1.629 oz Body Mass Index (BMI) 32.9 Intake & Output: Intake and Output for Last 24 Hours 08/07/21 08/08/21 08/09/21 03:59 03:59 03:59 Intake Total 375 / 375 Output Total 150 / 150 200 / 200 Balance 225 / 225 -200 / -200 Lab / Micro Data Result Diagrams: 08/08/21 05:04 08/08/21 05:04 Labs: Laboratory Results - last 24 hr 08/07/21 15:11: WBC 11.5 H, RBC 3.53 L, Hgb 9.6 L, Hct 30.5 L, MCV 86.4, MCH 27.2, MCHC 31.5 L, RDW Std Deviation 44.0 H, RDW Coeff of Jenna 14.1, Plt Count 391, MPV 8.5, Immature Gran % (Auto) 0.700, Neut % (Auto) 80.4 H, Lymph % (Auto) 11.4 L, [place] % (Auto) 5.2, Eos % (Auto) 1.9, Baso % (Auto) 0.4, Absolute Neuts (auto) 9.3 H, Absolute Lymphs (auto) 1.32, Nucleated RBC % 0 08/07/21 15:11: Sodium 135 L, Potassium 4.0, Chloride 102, Carbon Dioxide 23.0, Anion Gap 10, BUN 61 H, Creatinine 1.95 H, Estim Creat Clear Calc 20.93, Est GFR (MDRD) Af Amer 33 L, Est GFR (MDRD) Non-Af 27 L, BUN/Creatinine Ratio 31.3 H, Glucose 215 H, Calcium 9.0, C-React Prot Ext Range 106.00 H 08/07/21 15:11: Lactic Acid 2.1 H* 08/07/21 15:11: TSH < 0.01 L 08/07/21 15:11: Hemoglobin A1c 6.9 H 08/07/21 19:10: S.aureus Protein A PCR POSITIVE H, MRSA (PCR) POSITIVE H 08/07/21 20:06: Lactic Acid 1.8 08/07/21 22:02: POC Glucose 186 H 08/08/21 05:04: WBC 9.3, RBC 3.37 L, Hgb 9.1 L, Hct 28.7 L, MCV 85.2, MCH 27.0, MCHC 31.7 L, RDW Std Deviation 43.8, RDW Coeff of Jenna 14.2, Plt Count 325, MPV 8.6, Immature Gran % (Auto) 0.600, Neut % (Auto) 72.0 H, Lymph % (Auto) 15.7 L, [place] % (Auto) 8.0, Eos % (Auto) 3.2, Baso % (Auto) 0.5, Absolute Neuts (auto) 6.7, Absolute Lymphs (auto) 1.46, Nucleated RBC % 0 08/08/21 05:04: Sodium 136, Potassium 4.0, Chloride 106, Carbon Dioxide 21.0, Anion Gap 9, BUN 60 H, Creatinine 1.67 H, Estim Creat Clear Calc 23.32, Est GFR (MDRD) Af Amer 39 L, Est GFR (MDRD) Non-Af 32 L, BUN/Creatinine Ratio 35.9 H, Glucose 101, Calcium 8.8 08/08/21 05:47: POC Glucose 83 Micro: Microbiology 08/08/21 08:40 Nasal Secretion SARS-CoV-2 Antigen (Rapid) - Final Radiography Diagnostic Testing: Radiology Impression Foot X-Ray 08/07/21 14:47 IMPRESSION: 1. Osteomyelitis of the base of the proximal talus of the great toe and the head and neck of the first metatarsal bone. Electronically Signed: Marco Cruz MD at 16:53 EDT , Service support , Ankle Brachial Index 08/07/21 17:47 Interpretation Summary Limited abnormal bilateral lower extremity noninvasive arterial exam at rest Right PT ankle-brachial index 0.38 with monophasic right posterior tibial and dorsalis pedis Doppler waveforms consistent with severe occlusive disease Left posterior tibial ankle-brachial index 0.5 with a monophasic left posterior tibial and absent left dorsalis pedis Doppler waveform consistent with severe occlusive disease Ordering Physician: Pritesh Cervantes Referring Physician: Elia Ceja Chi Performed By: Fatmata Abarca RDCS/RVT Ankle X-Ray 08/07/21 19:03 IMPRESSION: Diffuse soft tissue swelling. Lucency seen in the calcaneus and talus as described. Osteomyelitis should be ruled. Electronically Signed: Donny Mariee MD at 10:33 EDT , Service support , Chest X-Ray 08/08/21 06:00 IMPRESSION: No acute abnormal cardiopulmonary finding. Electronically Signed: Kuldeep Khan MD at 5:47 EDT Tel , Service support , Lower Extremity MRI 08/08/21 07:04 IMPRESSION: Acute osteomyelitis involving the first metatarsal head, first proximal phalanx base, sesamoids and fifth proximal phalanx surgical stump Multiregional ulcerations with diffuse cellulitis and plantar surface abscess Diffuse muscle atrophy with muscle edema/myositis Surgically truncated fifth flexor and extensor tendons Mild/moderate multiregional osteoarthritis, as above Electronically Signed: Don Beard DO at 10:56 EDT Tel , Service support , Physical Exam Const alert, oriented x3 and no apparent distress General Appearance: cooperative HEENT normocephalic and moist oral mucous membranes Eyes PERRL, EOMs intact bilaterally and conjunctivae normal Neck supple and no JVD Resp normal respiratory effort, no retractions, no use of accessory muscles and clear to auscultation bilaterally Auscultation: Negative for crackles, rales, rhonchi or wheezes Cardio regular rate, regular rhythm, S1 normal heart sound, S2 normal heart sound and no murmurs GI soft to palpation, non-tender and non-distended; Negative for hepatosplenomegaly Extremity no clubbing, cyanosis or edema Skin Skin Narrative: Left foot wound dressed Neuro no focal motor deficits and no sensory deficits noted Psych affect normal Appearance: appropriate Assessment & Plan Assessment/Plan (1) Osteomyelitis of great toe of left foot: (2) Ulcer of left foot due to type 2 diabetes mellitus: (3) Peripheral vascular disease: PLAN: 1. Osteomyelitis of the great toe secondary to diabetic foot ulcer/type 2 diabetes with peripheral neuropathy/peripheral vascular disease -Continue with vancomycin and cefepime -Continue with IV fluids, will hold her Lasix temporarily kidney function was 1.95 on admission now down to 1.67 which does appear to be her baseline -We will consult infectious disease as well as podiatry -ABIs with 0.17 at her digits on her right lower extremity with an ankle of 0.38, her left CRYSTAL can be done to the ankle secondary to the ulcers in the dressings, and that ankle CRYSTAL was 0.5 she will need to follow-up with vascular surgery as an outpatient -Blood cultures and wound cultures are pending -We will place her on sliding scale insulin, as well long-acting insulin -Accu-Cheks AC at bedtime, will adjust as necessary -Continue with her gabapentin -MRI demonstrates osteomyelitis of the first metatarsal head and the first proximal phalanx base as well as the sesamoids and fifth proximal phalanx surgical stump. -Podiatry plans for the OR today 2. CAD status post CABG and stents/peripheral vascular disease/HTN/HLD -We will continue with her home blood pressure medications -We will hold her aspirin and Plavix in preparation of surgery -Continue with Lipitor 3. Hypothyroidism -Stable -Continue Synthroid 4. GERD -Stable -Continue with PPI DVT: Heparin Charges/Coding Visit Charges Inpatient E&M: 45109 Subs Hosp L2
[2021-08-08 12:41] LABS: Bedside Glucose 85 mg/dL (70-110)
[2021-08-08] MEDS: 0.9% Normal Saline 1,000 ML 75 ML IV (12:53)
[2021-08-08 13:20] LABS: Bedside Glucose 73 mg/dL (70-110)
--- NOTE | 2021-08-08 13:41 | RAD_ITS ---
STUDY: X-RAY - LEFT FOOT CLINICAL: Female, 71 years old. TRANSMETATARSAL AMPUTATION TECHNIQUE: For fluoroscopic view(s) of the left foot. COMPARISON: 08/07/2021 RAD/Foot 2 Views IMPRESSION: Transmetatarsal amputation of all 5 rays of the left foot. Electronically Signed: Kuldeep Khan MD at 2:24 EDT Tel , Service support ,
--- NOTE | 2021-08-08 14:00 | BON_PTH ---
PATIENT: EBONIE WOLF LOC: [facility] U#:[id number] AGE/SX: 71/F ROOM: [facility] RE08/07/[address]: Dr. Cj Lopez MD : 1950 BED: 1 DIS: 08/12/2021 SPEC #: [id number] RECD: 08/11/21 07:41 STATUS: DARY REQ #: [id number] KRISTOPHER: 08/08/21 14:[address]: Cristal Schmitz DEPT: SURGICAL PATHOLOGY RECD BY: Gabrielle Decker ENTERED: 08/11/21 09:22 SP TYPE: Bone OTHR DR: MD Dr. Cristal Penn, DPM MD Dr. Lai Paul MD Dr. Tai Chi Kwok, MD Tissues: A - Bone of foot, NOS B - Bone of foot, NOS Procedures: Decalcification bone/plaque Surgery Specimen Level III Surgery Specimen Level IV Comments: @ Ordering doctor for DEC edited from to DR.JFASCI Ana LO at 08/11/21 152 @ Ordering doctor for SUIII edited from to DR.JFASCI Ana LO at 08/11/21 1529 @ Submitting doctor edited from to DR.JFASCI Ana LO at 08/11/21 1529 HEADER OPERATION: Debridement of ulcers, transmetatarsal amputation, foot PRE-OP DIAGNOSIS: Infected left foot with osteomyelitis and abscess TISSUE SUBMITTED: A ? Soft tissue and bone left foot, B ? Clearance fragment left foot MICROSCOPIC DIAGNOSIS A. Soft tissue and bone, left foot, transmetatarsal amputation: Focal ulceration, associated acute inflammation and abscess formation. Underlying bone with acute osteomyelitis. B. Clearance fragment left foot: A piece of bone with reactive changes and mild chronic inflammation. Negative for acute osteomyelitis. SJ:daniel 08/14/2021 MICROSCOPIC DESCRIPTION Slides are reviewed. GROSS DESCRIPTION A - Received in fixative is one container labeled with the patient's name and designated soft tissue and bone left foot. The specimen consists of a transmetatarsal resection specimen consisting of five fragments ranging in size from 1.5 to 11 cm. The fifth toe appears to be missing. The nails in the first through fourth toes are deformed. The bone and soft tissue margin of resection are grossly unremarkable. An ulcer is noted in the missing base of fifth toe and medial aspect of great toe. These ulcers range in size from 2.5 to 3.5 cm. The fragments of bone and soft tissue free in the container in aggregate measures 7 x 3 x 1.5 cm. Blade Bender Furnace Tender sections are submitted in two cassettes after decalcification as follows: 1??ulcer including skin, soft tissue and bone from base of missing fifth toe, 2??ulcer including skin, soft tissue and bone from medial aspect of great toe. B - Received in fixative is one container labeled with the patient's name and designated clearance fragment left foot. The specimen consists of an irregular fragment of dark rowland bone measuring 0.8 x 0.2 x 0.2 cm. The specimen is totally submitted in one cassette after decalcification. / AM:daniel 08/11/21 TC:2 CPT: 66153, 59330, 19403 x2
[2021-08-08] MEDS: Lidocaine 1% (20 ml mdv) 20 ML Vial (14:15)
[2021-08-08] MEDS: Bupivacaine Mpf 0.5% 30 ML VIAL (14:15)
--- NOTE | 2021-08-08 15:06 | PCM.OPRPT ---
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 Transmetatarsal amputation left foot 2. Subcutaneous excisional debridement left anterior ankle Description of Surgical Findings:: Hemostasis: Well-padded pneumatic left ankle tourniquet, 250 mmHg, 24 minutes Materials 2-0 nylon Complications: None Specimens were sent The patient tolerated the procedure and anesthesia well. The patient was transported to the PACU with vital signs stable and vascular status intact to the surgical limb. To ice and elevate for pain and inflammation management. Postoperative x-rays were reviewed prior to leaving the operating room. Adequate transmetatarsal resection was performed without acute injuries, soft tissue emphysema, or foreign body. Postoperative orders were entered electronically. Surgeon: Cristal Schmitz tank car repairer: None (Maryan Adame, PGY2, DPM) Type of Anesthesia: General and Local (Preoperative: One-to-one mixture of 1% lidocaine plain and 0.5% Marcaine plain administered in typical left ankle block fashion, 20 cc) Specimen's removed: 1. Soft tissue and bone left foot sent to microbiology for aerobic, anaerobic, acid-fast, fungal 2. Soft tissue and bone left foot sent to pathology 3. Metatarsal bone clearance fragment sent to microbiology for aerobic, anaerobic, acid-fast, fungal 4. Metatarsal bone clearance fragment sent to pathology Drains: None Estimated Blood Loss (mL): 250 mL Description of Procedure: Indications: This is a 71-year-old male with significant past medical history of uncontrolled diabetes, hyperlipemia, hypothyroidism, and suspected peripheral vascular disease, thyroid cancer, bells palsy, hypertension, TIA has chronic left foot ulcers. She has been living in [place] for the past several years and returned 1 week ago in which she had black foot ulcers with ongoing purulent drainage and significant odor. She also has ulcer to the front of her ankle and also her posterior left leg. She had thrombectomy performed to the femoral and superficial femoral arteries in [place] in May 2021. She was admitted to hospitalist physician and was started on IV vancomycin and cefepime. X-rays demonstrate deterioration of the first metatarsal head and remaining fifth digit adjacent to her amputation site. There is no soft tissue emphysema or foreign body. MRI demonstrated confirmed osteomyelitis proximal to the first metatarsal level and also including the proximal phalanx base of the hallux and the sesamoids and also the distal aspect of the remaining fifth ray. There is also a diffuse abscess and diffuse myositis noted to the plantar forefoot. This correlates with the plantar foot ulcer site The planned procedure, possible benefits, risks, complications, anticipated healing time and management were discussed in detail with the patient and her daughter. She understands and elects to proceed with surgery at this time. She understands that complications and risks including but not limited to continue pain, swelling, scarring additional workup or surgery, delayed or nonhealing of the skin or bone, loss of limb/functional/life. Her prognosis is guarded. The goal of the procedure is to remove infected tissue to prevent further progression. She was admitted in hospitalist to optimize her medically which is appreciated. The surgical limb and consent were signed. All of her questions were answered. The patient also understands there is an inherent risk with being in the hospital and undergoing a procedure during the time of COVID-19 pandemic. The patient understands precautions are being taken to prevent transmission. This patient understands the benefits and risks of having a procedure at this time versus waiting in which the benefits are reasonable at this time. PROCEDURE IN DETAIL: The patient was transported to the operating room via cart and placed on the operating room table in supine position. Final verification of the patient, final surgery, and limb designation was performed via the time-out procedure. IV antibiotics were already administered on the floor; cefepime and vancomycin. General anesthesia was initiated via the anesthesia team. The podiatry team administered the local anesthetic. A well-padded pneumatic left ankle tourniquet was placed. The left lower extremity was prepped and draped in the usual aseptic manner. [place] exsanguination was performed and the tourniquet was inflated at this time. Surgery began the following manner: A 15 blade was used to fish[place] incision proximal to the medial and lateral forefoot ulcer sites down to bone. The soft tissue was reflected off the metatarsals with a mosher elevator and a sagittal saw was used to resect all metatarsal, sesamoid apparatus, and plantar plates taking care to bevel and perform a residual parabola. This was next carefully removed from the table and was sent to both microbiology and pathology. Any devitalized necrotic plantar foot deep tissue was also excised and all tendons were pulled to length. Copious irrigation was performed and the tourniquet was deflated at this time. Capillary refill time was consistent with her preoperative status and electrocauterization and direct pressure ring used to maintain hemostasis. At this time clean gloves, instruments, and adjacent drapes were used. A clearance fragment was used to obtain a fragment from the first metatarsal bone and this was also sent to pathology and microbiology. There was some residual healthy appearing skin to the dorsal and plantar stump aspect which was gently reapproximated and sutured with vertical mattress and retention simple suture techniques. This incision measured 15 cm in length. Deep absorbable sutures were not placed. The ulcer was also excised from the plantar foot. Predebridement measurement was 1 cm x 1 cm x 2 cm depth and post debridement was 1.4 cm x 1.4 cm x 2 cm depth. No remaining purulence, odor, necrosis were noted. Anterior ankle ulcer was also debrided with a 15 blade scalpel to excise devitalized subcutaneous tissue, biofilm, slough, fibrous tissue. The predebridement measurement was 3.4 x 4.0 x 0.1 cm and the post debridement 3.5 x 4.2 x 0.1 cm. There is a small amount of exposed tendon (5x5 mm) which was debrided in an excisional manner as well to the site. Healthy underlying intact extensor tendon remained at the wound base. No purulence or bogginess on expession noted to this site. AFTER PROCEDURE: The patient tolerated the procedure well and transported to PACU with vital signs stable and vascular status intact to left lower extremity. To keep the dressing clean, dry and intact. To elevate and ice for pain and inflammation control. Pain medications have been ordered and this includes IV and oral options. To maintain a strict nonweightbearing status to the left lower extremity. I recommend infectious disease consult and continuation of IV antibiotics. Postoperative x-rays were reviewed as noted. She is at risk for continued limb loss and her healing progress is guarded due to her identified peripheral vascular disease status. The goal today was to decompress her infection. Postoperative orders were entered electronically. Grafts/Implants Used: None Complications None Admit VTE Documentation VTE Present on Admission: No VTE Mechan Device Prophylaxis: SCD's VTE Pharm Prophylaxis ordered?: Yes
[2021-08-08 16:25] LABS: Bedside Glucose 58 mg/dL (70-110)
--- NOTE | 2021-08-08 17:46 | NURSING ---
Pt off floor for procedure, VSA late.
[2021-08-08] MEDS: Juven (unflavored) Packet 1 PACKET PO (17:55)
[2021-08-08] MEDS: Potassium Chloride Oral Tablet 10 MEQ PO (17:55)
[2021-08-08] MEDS: metroNIDAZOLE 500 MG Tablet PO ×2 (17:55→21:21)
[2021-08-08] MEDS: Vancomycin IV 1,000 MG/200 ML BAG 200 MG IV (18:02)
[2021-08-08 18:15] LABS: Bedside Glucose 79 mg/dL (70-110)
[2021-08-08] MEDS: Gabapentin 400 MG Capsule 800 MG PO (21:21)
[2021-08-08] MEDS: Nortriptyline 25 MG Capsule 50 MG PO (21:22)
[2021-08-08] MEDS: Atorvastatin Calcium 80 MG Tablet PO (21:22)
[2021-08-08 22:15] LABS: Bedside Glucose 112 mg/dL (70-110)
[2021-08-09] VITALS (20 sets, daily range): BP systolic 123–151; BP diastolic 48–80; PULSE 79–99; RESP 15–20; TEMP 36.8–37.7; O2SAT 94–100
[2021-08-09] MEDS: Morphine 2 MG/ML Syringe IV (00:32)
--- NOTE | 2021-08-09 01:29 | PCS.PANDOC ---
PANDEMIC DOCUMENTATION INITIATED: Date: 06/23/2021 Time: 190
[2021-08-09] MEDS: Levothyroxine 100 MCG Tablet 200 MCG PO (06:07)
[2021-08-09] MEDS: metroNIDAZOLE 500 MG Tablet PO ×3 (06:07→22:15)
[2021-08-09 06:25] LABS: Bedside Glucose 91 mg/dL (70-110)
[2021-08-09 06:32] LABS: Absolute Lymphocyte Count 1.31 X10^3/uL (0.83-4.51); Absolute Neutrophil Count 8.5 X10^3/uL (2.0-7.7); Basophil# 0.03 X10^3/uL; Basophil% 0.3 % (0-1); Eosinophil# 0.21 X10^3/uL; Eosinophils% 1.9 % (0-5); Hematocrit 23.9 % (37-47); Hemoglobin 7.2 g/dL (12.0-15.0); Lymphocyte # 1.31 X10^3/ul (0.83-4.51); Lymphocyte % 12.1 % (19-41); Mean Corp Hgb Conc 30.1 g/dL (32-36); Mean Corpuscular Hgb 27.3 pg (27.0-32.0); Mean Corpuscular Volume 90.5 fL (81-99); Mean Platelet Vol. 8.4 fl (6.2-12.0); Monocyte# 0.74 X10^3/uL; Monocyte% 6.8 % (0-10); NRBC Flagged by Analyzer 0 % (0-5); Neutrophil # 8.53 X10^3/uL (2.7-7.7); Neutrophil % 78.4 % (47-70); Platelet Count 281 K/mm3 (150-450); RBC Distribution Width CV 14.3 % (11.6-14.6); RBC Distribution Width SD 46.7 fl (35.1-43.9); Red Blood Count 2.64 M/mm3 (4.2-5.4); White Blood Count 10.9 K/mm3 (4.4-11.0)
[2021-08-09 06:59] LABS: Anion Gap 6 (5-15); BUN 58 mg/dL (7-18); BUN/Creat Ratio 33.5 RATIO (10-20); Calcium,Total 8.2 mg/dL (8.5-10.1); Chloride 108 mmol/L (98-107); Creatinine, Serum 1.73 mg/dL (0.55-1.02); EST Glomerular Filtration Rate 31 mL/min (>60); Est Glom Filt Rate - Afr Amer 37 mL/min (>60); Estimated Creatinine Clearance 22.51 ml/min; Glucose 99 mg/dL (74-106); Potassium 4.5 mmol/L (3.5-5.1); Sodium Level 136 mmol/L (136-145)
--- NOTE | 2021-08-09 08:11 | PN_ITS ---
Subjective Subjective This 71-year-old female with multiple comorbidities was seen bedside postoperative day #1 left foot transmetatarsal amputation with additional debridement of anterior ankle ulcer secondary to osteomyelitis, chronic ulcer, and abscess. She denies fever, chill, nausea, vomiting or calf pain. She does in general have continued leg pain which is consistent to her preoperative status. She tolerated the dressing change. Objective Data Objective Data Vital Signs: Vital Signs Temp Pulse Resp BP Pulse Ox 98.3 F 87 16 147/63 H 100 08/09/21 03:30 08/09/21 07:00 08/09/21 03:30 08/09/21 03:30 08/09/21 03:54 Oxygen Delivery Method Room Air Weight: 83.1 kg Body Mass Index (BMI) 34.4 Intake & Output: Intake and Output for Last 24 Hours 08/07/21 08/08/21 08/09/21 23:59 23:59 23:59 Intake Total 375 / 375 1762.5 / 1762.5 Output Total 825 / 825 200 / 200 Balance 375 / 375 937.5 / 937.5 -200 / -200 Lab / Micro Data Result Diagrams: 08/09/21 06:04 08/09/21 06:04 Labs: Laboratory Results - last 24 hr 08/08/21 11:44: POC Glucose 85 08/08/21 13:16: POC Glucose 73 08/08/21 16:20: POC Glucose 58 L 08/08/21 18:06: POC Glucose 79 08/08/21 21:19: POC Glucose 112 H 08/09/21 06:04: WBC 10.9, RBC 2.64 L, Hgb 7.2 L, Hct 23.9 L, MCV 90.5 D, MCH 27.3, MCHC 30.1 L D, RDW Std Deviation 46.7 H, RDW Coeff of Jenna 14.3, Plt Count 281, MPV 8.4, Immature Gran % (Auto) 0.500, Neut % (Auto) 78.4 H, Lymph % (Auto) 12.1 L, [place] % (Auto) 6.8, Eos % (Auto) 1.9, Baso % (Auto) 0.3, Absolute Neuts (auto) 8.5 H, Absolute Lymphs (auto) 1.31, Nucleated RBC % 0 08/09/21 06:04: Sodium 136, Potassium 4.5, Chloride 108 H, Carbon Dioxide 22.0, Anion Gap 6, BUN 58 H, Creatinine 1.73 H, Estim Creat Clear Calc 22.51, Est GFR (MDRD) Af Amer 37 L, Est GFR (MDRD) Non-Af 31 L, BUN/Creatinine Ratio 33.5 H, Glucose 99, Calcium 8.2 L 08/09/21 06:11: POC Glucose 91 Micro: Microbiology 08/07/21 15:22 Wound - Left Foot Gram Stain - Final 08/07/21 15:22 Wound - Left Foot Wound Culture - Preliminary Staphylococcus aureus GNR lactose american sign language interpreter 08/08/21 08:40 Nasal Secretion SARS-CoV-2 Antigen (Rapid) - Final Radiography Diagnostic Testing: Radiology Impression Ankle Brachial Index 08/07/21 17:47 Interpretation Summary Limited abnormal bilateral lower extremity noninvasive arterial exam at rest Right PT ankle-brachial index 0.38 with monophasic right posterior tibial and dorsalis pedis Doppler waveforms consistent with severe occlusive disease Left posterior tibial ankle-brachial index 0.5 with a monophasic left posterior tibial and absent left dorsalis pedis Doppler waveform consistent with severe occlusive disease Ordering Physician: Pritesh Cervantes Referring Physician: Elia Ceja Chi Performed By: Fatmata Abarca RDVIRGEN/RVT Ankle X-Ray 08/07/21 19:03 IMPRESSION: Diffuse soft tissue swelling. Lucency seen in the calcaneus and talus as described. Osteomyelitis should be ruled. Electronically Signed: Donny Mariee MD at 10:33 EDT , Service support , Lower Extremity MRI 08/08/21 07:04 IMPRESSION: Acute osteomyelitis involving the first metatarsal head, first proximal phalanx base, sesamoids and fifth proximal phalanx surgical stump Multiregional ulcerations with diffuse cellulitis and plantar surface abscess Diffuse muscle atrophy with muscle edema/myositis Surgically truncated fifth flexor and extensor tendons Mild/moderate multiregional osteoarthritis, as above Electronically Signed: Don Beard, at 10:56 EDT Tel , Service support , Physical Exam Const alert and oriented x3 General Appearance: cooperative HEENT normocephalic Extremity Extremity Narrative: No calf tenderness Diminished pulses Muscle wasting noted Transmetatarsal amputation left foot General Extremity: edema and no tenderness to palpation of joints or extremities; Negative for cyanosis Skin Skin Narrative: There is no purulence, odor, erythema, or streaking noted. There are retention sutures in place to the stump site and these remain intact without new gapping. There is no eschar or necrosis at the surgical incision site. The ulcer to the anterior ankle also appears 100% granular with no longer any exposed devitalized tendon. Her skin is atrophic shiny and hairless. There is no bogginess or fluctuance noted on palpation Neuro Neuro Narrative: lack of normal epicritic sensation via light touch is consistent with neuropathy status. 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 She has a temperature of 99.9. Otherwise her vitals are stable. Her white blood cell count is 10.9. It is noted her hemoglobin is lower today at 7.2 likely secondary to surgical blood loss. The following work up and care recommendations were made: Dressing: Betadine wet-to-dry gauze was to the incision amputation stump site and Aquacel Ag to the anterior ankle wound site. Secondary dressing consisting of gauze abdominal pad Kerlix and lightly applied Alejandro wrap Offload: To maintain a nonweightbearing status left lower extremity Vascular: She has known peripheral vascular disease and her medical records are requested. In May 2021 it is noted she had a thrombectomy of the femoral and superficial femoral artery of the left lower extremity at a hospital in [place]; medical records are currently in her paper chart and full. She also had prior vascular surgery intervention with local specialist, Dr. Aguilar in 2017. I recommend she follows up with him in house if she is still here midweek or she can follow-up with him in the outpatient setting. Her preoperative lower extremity arterial studies demonstrated monophasic waveforms and calcified vessels. It is noted she did have at least a moderate amount of bleeding and surgery and her tissue margins appear clinically viable so far this morning. This will be monitored for continued demarcation. Pain: Controlled with oral and IV pain medication Host factors: She is uncontrolled diabetes and known peripheral vascular disease amongst her other comorbidities. Medical management per hospitalist is greatly appreciated. Nutritional supplementation was ordered to optimize healing. Infection: She was started on vancomycin and cefepime. Deep wound cultures were obtained including aerobic, anaerobic, and MRSA PCR. So far she has MRSA positive growth and gram negative raj lactose american sign language interpreter. ID on consult and input will be greatly appreciated. She already has limb loss and her current infected ulcer status is limb and life-threatening. It appears her initial necrotic and main infection is maintained now in the postoperative setting to the left lower limb. She still remains at risk for a below or above-knee amputation. Anticoagulation: Okay to resume from a surgical standpoint per hospitalist. Her low hemoglobin is noted this morning. I answered all the patient's questions. Please do not hesitate to call if you have any questions. I will continue to follow her while in house Cristal Schmitz DPM, [facility] [phone]
[2021-08-09] MEDS: Juven (unflavored) Packet 1 PACKET PO ×2 (08:17→17:04)
[2021-08-09] MEDS: Metoprolol Tartrate 25 MG Tablet PO ×2 (08:20→21:56)
[2021-08-09] MEDS: Potassium Chloride Oral Tablet 10 MEQ PO (08:20)
[2021-08-09] MEDS: amLODIPine 10 MG Tablet PO (08:21)
[2021-08-09] MEDS: Pantoprazole Sodium 40 MG Tablet PO (08:22)
[2021-08-09] MEDS: oxyCODONE 5 MG Tablet PO ×2 (08:24→21:52)
[2021-08-09] MEDS: Acetaminophen 325 MG Tablet 650 MG PO ×2 (08:24→21:52)
[2021-08-09] MEDS: 0.9% Normal Saline 1,000 ML 75 ML IV (11:08)
--- NOTE | 2021-08-09 12:21 | PCM.PN.HOSP ---
Subjective Subjective Doing well, pain is controlled. She is status post a transmetatarsal amputation. Hemoglobin is low at 7.2 will transfuse. Objective Data Objective Data Vital Signs: Vital Signs Temp Pulse Resp BP Pulse Ox 99.5 F H 83 16 138/48 H 96 08/09/21 12:06 08/09/21 12:06 08/09/21 12:06 08/09/21 12:06 08/09/21 12:06 Oxygen Delivery Method Room Air Weight: 183 lb 3.266 oz Body Mass Index (BMI) 34.4 Intake & Output: Intake and Output for Last 24 Hours 08/08/21 08/09/21 08/10/21 03:59 03:59 03:59 Intake Total 375 / 375 1762.5 / 1762.5 912.5 / 912.5 Output Total 150 / 150 675 / 675 650 / 650 Balance 225 / 225 1087.5 / 1087.5 262.5 / 262.5 Lab / Micro Data Result Diagrams: 08/09/21 06:04 08/09/21 06:04 Labs: Laboratory Results - last 24 hr 08/08/21 11:44: POC Glucose 85 08/08/21 13:16: POC Glucose 73 08/08/21 16:20: POC Glucose 58 L 08/08/21 18:06: POC Glucose 79 08/08/21 21:19: POC Glucose 112 H 08/09/21 06:04: WBC 10.9, RBC 2.64 L, Hgb 7.2 L, Hct 23.9 L, MCV 90.5 D, MCH 27.3, MCHC 30.1 L D, RDW Std Deviation 46.7 H, RDW Coeff of Jenna 14.3, Plt Count 281, MPV 8.4, Immature Gran % (Auto) 0.500, Neut % (Auto) 78.4 H, Lymph % (Auto) 12.1 L, [place] % (Auto) 6.8, Eos % (Auto) 1.9, Baso % (Auto) 0.3, Absolute Neuts (auto) 8.5 H, Absolute Lymphs (auto) 1.31, Nucleated RBC % 0 08/09/21 06:04: Sodium 136, Potassium 4.5, Chloride 108 H, Carbon Dioxide 22.0, Anion Gap 6, BUN 58 H, Creatinine 1.73 H, Estim Creat Clear Calc 22.51, Est GFR (MDRD) Af Amer 37 L, Est GFR (MDRD) Non-Af 31 L, BUN/Creatinine Ratio 33.5 H, Glucose 99, Calcium 8.2 L 08/09/21 06:11: POC Glucose 91 08/09/21 09:25: Blood Type AB POSITIVE, Antibody Screen NEGATIVE, Crossmatch See Detail Micro: Microbiology 08/08/21 15:24 Tissue - Left Foot Wound Culture - Preliminary No growth-Final to follow 08/08/21 15:24 Tissue - Left Foot Wound Culture - Preliminary Staphylococcus aureus GNR lactose master control technician 08/07/21 15:22 Wound - Left Foot Gram Stain - Final 08/07/21 15:22 Wound - Left Foot Wound Culture - Preliminary Staphylococcus aureus GNR lactose master control technician 08/08/21 08:40 Nasal Secretion SARS-CoV-2 Antigen (Rapid) - Final Physical Exam Const alert, oriented x3 and no apparent distress General Appearance: cooperative HEENT normocephalic and moist oral mucous membranes Eyes PERRL, EOMs intact bilaterally and conjunctivae normal Neck supple and no JVD Resp normal respiratory effort, no retractions, no use of accessory muscles and clear to auscultation bilaterally Auscultation: Negative for crackles, rales, rhonchi or wheezes Cardio regular rate, regular rhythm, S1 normal heart sound, S2 normal heart sound and no murmurs GI soft to palpation, non-tender and non-distended; Negative for hepatosplenomegaly Extremity no clubbing, cyanosis or edema Skin Skin Narrative: Left foot wound dressed Neuro no focal motor deficits and no sensory deficits noted Psych affect normal Appearance: appropriate Assessment & Plan Assessment/Plan (1) Osteomyelitis of great toe of left foot: (2) Ulcer of left foot due to type 2 diabetes mellitus: (3) Peripheral vascular disease: PLAN: 1. Osteomyelitis of the great toe secondary to diabetic foot ulcer/type 2 diabetes with peripheral neuropathy/peripheral vascular disease -Continue with vancomycin and cefepime, ID added Flagyl -Continue with IV fluids, will hold her Lasix temporarily and will monitor renal function -We will consult infectious disease as well as podiatry -ABIs with 0.17 at her digits on her right lower extremity with an ankle of 0.38, her left CRYSTAL can be done to the ankle secondary to the ulcers in the dressings, and that ankle CRYSTAL was 0.5 she will need to follow-up with vascular surgery as an outpatient -Blood cultures and wound cultures are pending, preliminarily with staph aureus and gram-negative raj -We will place her on sliding scale insulin, as well long-acting insulin -Accu-Cheks AC at bedtime, will adjust as necessary -Continue with her gabapentin -MRI demonstrates osteomyelitis of the first metatarsal head and the first proximal phalanx base as well as the sesamoids and fifth proximal phalanx surgical stump. -Podiatry plans for the OR today 2. CAD status post CABG and stents/peripheral vascular disease/HTN/HLD -We will continue with her home blood pressure medications -We will hold her aspirin and Plavix in preparation of surgery -Continue with Lipitor 3. Hypothyroidism -Stable -Continue Synthroid 4. GERD -Stable -Continue with PPI DVT: Heparin Charges/Coding Visit Charges Inpatient E&M: 66681 Subs Hosp L2
[2021-08-09 12:35] LABS: Bedside Glucose 108 mg/dL (70-110)
--- NOTE | 2021-08-09 13:16 | CM.ED ---
SW Note Referral Source: PCU SW Referral Reason: Medicaid application SW went to patient's room and provided him with medicaid application. Patient was asleep and no family members were present. SW will remain available as needed. Plan: Medicaid application provided Chari POLANCO
[2021-08-09 16:20] LABS: Vancomycin, Trough Level 17.1 ug/mL (5.0-15.0)
[2021-08-09] MEDS: 0.9% Saline Lock 10 ML Syringe IV ×2 (17:05→17:26)
[2021-08-09 17:21] LABS: Bedside Glucose 99 mg/dL (70-110)
[2021-08-09] MEDS: Vancomycin IV 1,000 MG/200 ML BAG 200 MG IV (17:33)
[2021-08-09] MEDS: Atorvastatin Calcium 80 MG Tablet PO (21:55)
[2021-08-09] MEDS: Nortriptyline 25 MG Capsule 50 MG PO (21:55)
[2021-08-09] MEDS: Docusate Sodium 100 MG Capsule 200 MG PO (21:55)
[2021-08-09] MEDS: Gabapentin 400 MG Capsule 800 MG PO (21:56)
--- NOTE | 2021-08-09 21:58 | PHA.PHARE_ITS ---
Consult Pharmacy has been consulted to manage selected antiobiotic: Vancomycin Type of Consult: Follow-up Suspected Infection: Osteomyelitis Prior Doses of Antibiotics Received/Current Regimen: Medications Vancomycin HCl (Vancomycin) 1,000 mg in 200 mls @ 200 mls/hr IV Q24H JEFFRY Last Admin: 08/09/21 18:42 Dose: Infused Labs: Sodium 136 mmol/L (136-145) 08/09/21 06:04 Potassium 4.5 mmol/L (3.5-5.1) 08/09/21 06:04 Chloride 108 mmol/L (98-107) H 08/09/21 06:04 Carbon Dioxide 22.0 mmol/L (21.0-32.0) 08/09/21 06:04 Anion Gap 6 (5-15) 08/09/21 06:04 BUN 58 mg/dL (7-18) H 08/09/21 06:04 Creatinine 1.73 mg/dL (0.55-1.02) H 08/09/21 06:04 Est GFR (MDRD) Af Amer 37 mL/min (>60) L 08/09/21 06:04 Est GFR (MDRD) Non-Af 31 mL/min (>60) L 08/09/21 06:04 BUN/Creatinine Ratio 33.5 RATIO (10-20) H 08/09/21 06:04 Glucose 99 mg/dL (74-106) 08/09/21 06:04 Vancomycin Trough 17.1 ug/mL (5.0-15.0) H 08/09/21 16:00 Microbiology: Microbiology 08/07/21 15:11 Blood Culture (Wb) - Anticubital Right Blood Culture - Preliminary No growth in 48 hours. 08/08/21 15:24 Tissue - Left Foot Gram Stain - Final 08/08/21 15:24 Tissue - Left Foot Wound Culture - Preliminary No growth-Final to follow 08/08/21 15:24 Tissue - Left Foot Gram Stain - Final 08/08/21 15:24 Tissue - Left Foot Wound Culture - Preliminary Staphylococcus aureus GNR lactose egg processing supervisor 08/07/21 15:22 Wound - Left Foot Gram Stain - Final 08/07/21 15:22 Wound - Left Foot Wound Culture - Preliminary Staphylococcus aureus GNR lactose egg processing supervisor 08/08/21 08:40 Nasal Secretion SARS-CoV-2 Antigen (Rapid) - Final Weight used for dosin.1 kg Estimated Creatinine Clearance: 22.5 Goal Trough: 15-20 mcg/mL Pharmacy Plan for Drug Dosing: Vancomycin trough level of 17.1 was within target range of 15-20. Will continue same dosing and re-draw a trough 08/12/21. Pharmacy Service will continue to monitor and adjust dosing as required. Follow-Up Labs: Trough Vancomycin Labs to be done on [date and time ordered]: 08/12/21 @1716
[2021-08-09] MEDS: Insulin Lispro 100 UNIT/ML INSULN.PEN SC (22:14)
[2021-08-09 22:31] LABS: Bedside Glucose 168 mg/dL (70-110)
[2021-08-10] VITALS (11 sets, daily range): BP systolic 142–156; BP diastolic 54–67; PULSE 66–82; RESP 16–18; TEMP 36.5–37; O2SAT 98–99
[2021-08-10] MEDS: Levothyroxine 100 MCG Tablet 200 MCG PO (05:30)
[2021-08-10] MEDS: metroNIDAZOLE 500 MG Tablet PO ×3 (05:30→21:39)
[2021-08-10] MEDS: Menthol/Lanolin/Calamine/Znox 113 GM Tube 1 APPLIC TOPICAL ×3 (05:31→21:39)
[2021-08-10 06:45] LABS: Bedside Glucose 110 mg/dL (70-110)
[2021-08-10 07:29] LABS: Absolute Lymphocyte Count 1.51 X10^3/uL (0.83-4.51); Absolute Neutrophil Count 8.4 X10^3/uL (2.0-7.7); Basophil# 0.04 X10^3/uL; Basophil% 0.4 % (0-1); Eosinophil# 0.19 X10^3/uL; Eosinophils% 1.7 % (0-5); Hemoglobin 8.7 g/dL (12.0-15.0); Lymphocyte # 1.51 X10^3/ul (0.83-4.51); Lymphocyte % 13.6 % (19-41); Mean Corp Hgb Conc 32.2 g/dL (32-36); Mean Corpuscular Hgb 28.3 pg (27.0-32.0); Mean Corpuscular Volume 87.9 fL (81-99); Mean Platelet Vol. 8.6 fl (6.2-12.0); Monocyte# 0.92 X10^3/uL; Monocyte% 8.3 % (0-10); NRBC Flagged by Analyzer 0 % (0-5); Neutrophil # 8.37 X10^3/uL (2.7-7.7); Neutrophil % 75.5 % (47-70); Platelet Count 267 K/mm3 (150-450); RBC Distribution Width CV 14.3 % (11.6-14.6); Red Blood Count 3.07 M/mm3 (4.2-5.4); White Blood Count 11.1 K/mm3 (4.4-11.0)
[2021-08-10] MEDS: 0.9% Normal Saline 1,000 ML 75 ML IV (07:34)
[2021-08-10] MEDS: 0.9% Saline Lock 10 ML Syringe IV (07:40)
[2021-08-10 07:49] LABS: Anion Gap 7 (5-15); BUN 64 mg/dL (7-18); BUN/Creat Ratio 39.3 RATIO (10-20); Calcium,Total 8.2 mg/dL (8.5-10.1); Chloride 111 mmol/L (98-107); Creatinine, Serum 1.63 mg/dL (0.55-1.02); EST Glomerular Filtration Rate 33 mL/min (>60); Est Glom Filt Rate - Afr Amer 40 mL/min (>60); Estimated Creatinine Clearance 23.89 ml/min; Glucose 119 mg/dL (74-106); Potassium 3.7 mmol/L (3.5-5.1); Sodium Level 138 mmol/L (136-145)
[2021-08-10] MEDS: Acetaminophen 325 MG Tablet 650 MG PO ×2 (07:50→14:10)
[2021-08-10] MEDS: Juven (unflavored) Packet 1 PACKET PO ×2 (07:50→16:22)
[2021-08-10] MEDS: oxyCODONE 5 MG Tablet PO ×3 (07:51→21:38)
--- NOTE | 2021-08-10 09:02 | PN.HOSP_ITS ---
Subjective Subjective Doing well, cultures are still pending. She says that she has a very little bit of pain which is manageable. Objective Data Objective Data Vital Signs: Vital Signs Temp Pulse Resp BP Pulse Ox 97.7 F L 66 16 142/67 H 98 08/10/21 05:28 08/10/21 07:00 08/10/21 05:28 08/10/21 05:28 08/10/21 05:28 Oxygen Delivery Method Room Air Weight: 182 lb 5.156 oz Body Mass Index (BMI) 34.4 Intake & Output: Intake and Output for Last 24 Hours 08/09/21 08/10/21 08/11/21 03:59 03:59 03:59 Intake Total 1762.5 / 1762.5 1982.5 / 1982.5 1235 / 1235 Output Total 675 / 675 1300 / 1300 600 / 600 Balance 1087.5 / 1087.5 682.5 / 682.5 635 / 635 Lab / Micro Data Result Diagrams: 08/10/21 06:46 08/10/21 06:46 Labs: Laboratory Results - last 24 hr 08/09/21 09:25: Blood Type AB POSITIVE, Antibody Screen NEGATIVE, Crossmatch See Detail 08/09/21 12:10: POC Glucose 108 08/09/21 16:00: Vancomycin Trough 17.1 H 08/09/21 17:11: POC Glucose 99 08/09/21 22:09: POC Glucose 168 H 08/10/21 06:34: POC Glucose 110 08/10/21 06:46: WBC 11.1 H, RBC 3.07 L, Hgb 8.7 L, Hct 27.0 L, MCV 87.9, MCH 28.3, MCHC 32.2 D, RDW Std Deviation 46.0 H, RDW Coeff of Jenna 14.3, Plt Count 267, MPV 8.6, Immature Gran % (Auto) 0.500, Neut % (Auto) 75.5 H, Lymph % (Auto) 13.6 L, [place] % (Auto) 8.3, Eos % (Auto) 1.7, Baso % (Auto) 0.4, Absolute Neuts (auto) 8.4 H, Absolute Lymphs (auto) 1.51, Nucleated RBC % 0 08/10/21 06:46: Sodium 138, Potassium 3.7, Chloride 111 H, Carbon Dioxide 20.0 L , Anion Gap 7, BUN 64 H, Creatinine 1.63 H, Estim Creat Clear Calc 23.89, Est GFR (MDRD) Af Amer 40 L, Est GFR (MDRD) Non-Af 33 L, BUN/Creatinine Ratio 39.3 H , Glucose 119 H, Calcium 8.2 L Micro: Microbiology 08/07/21 15:11 Blood Culture (Wb) - Anticubital Right Blood Culture - Preliminary No growth in 48 hours. 08/08/21 15:24 Tissue - Left Foot Gram Stain - Final 08/08/21 15:24 Tissue - Left Foot Wound Culture - Preliminary No growth-Final to follow 08/08/21 15:24 Tissue - Left Foot Gram Stain - Final 08/08/21 15:24 Tissue - Left Foot Wound Culture - Preliminary Staphylococcus aureus GNR lactose patient resource coordinator 08/07/21 15:22 Wound - Left Foot Gram Stain - Final 08/07/21 15:22 Wound - Left Foot Wound Culture - Preliminary Staphylococcus aureus GNR lactose patient resource coordinator 08/08/21 08:40 Nasal Secretion SARS-CoV-2 Antigen (Rapid) - Final Radiography Diagnostic Testing: Radiology Impression Foot X-Ray 08/08/21 13:41 IMPRESSION: Transmetatarsal amputation of all 5 rays of the left foot. Electronically Signed: Kuldeep Khan MD at 2:24 EDT Tel , Service support , Physical Exam Const alert, oriented x3 and no apparent distress General Appearance: cooperative HEENT normocephalic and moist oral mucous membranes Eyes PERRL, EOMs intact bilaterally and conjunctivae normal Neck supple and no JVD Resp normal respiratory effort, no retractions, no use of accessory muscles and clear to auscultation bilaterally Auscultation: Negative for crackles, rales, rhonchi or wheezes Cardio regular rate, regular rhythm, S1 normal heart sound, S2 normal heart sound and no murmurs GI soft to palpation, non-tender and non-distended; Negative for hepatosplenomegaly Extremity no clubbing, cyanosis or edema Skin Skin Narrative: Left foot wound dressed Neuro no focal motor deficits and no sensory deficits noted Psych affect normal Appearance: appropriate Assessment & Plan Assessment/Plan (1) Osteomyelitis of great toe of left foot: (2) Ulcer of left foot due to type 2 diabetes mellitus: (3) Peripheral vascular disease: PLAN: 1. Osteomyelitis of the great toe secondary to diabetic foot ulcer status post transmetatarsal amputation of the left foot 08/08/2021/DM2 with peripheral n europathy/PVD -Continue with vancomycin and cefepime, ID added Flagyl -Discontinue IV fluids, will hold her Lasix temporarily and will monitor renal function -We will consult infectious disease as well as podiatry -ABIs with 0.17 at her digits on her right lower extremity with an ankle of 0.38, her left CRYSTAL can be done to the ankle secondary to the ulcers in the dressings, and that ankle CRYSTAL was 0.5 she will need to follow-up with vascular surgery as an outpatient -Blood cultures and wound cultures are pending, preliminarily with staph aureus and gram-negative raj -We will place her on sliding scale insulin, as well long-acting insulin -Accu-Cheks AC at bedtime, will adjust as necessary -Continue with her gabapentin -MRI demonstrates osteomyelitis of the first metatarsal head and the first proximal phalanx base as well as the sesamoids and fifth proximal phalanx surgical stump. 2. CAD status post CABG and stents/peripheral vascular disease/HTN/HLD -We will continue with her home blood pressure medications -We will hold her aspirin and Plavix in preparation of surgery -Continue with Lipitor 3. Hypothyroidism -Stable -Continue Synthroid 4. GERD -Stable -Continue with PPI DVT: Heparin Charges/Coding Visit Charges Inpatient E&M: 21480 Subs Hosp L2
[2021-08-10] MEDS: Polyethylene Glycol 3350 17 GM PACKET PO (10:31)
[2021-08-10] MEDS: Pantoprazole Sodium 40 MG Tablet PO (10:31)
[2021-08-10] MEDS: Metoprolol Tartrate 25 MG Tablet PO ×2 (10:32→21:39)
[2021-08-10] MEDS: Potassium Chloride Oral Tablet 10 MEQ PO (10:32)
[2021-08-10] MEDS: Docusate Sodium 100 MG Capsule 200 MG PO ×2 (10:32→21:38)
[2021-08-10] MEDS: amLODIPine 10 MG Tablet PO (10:33)
--- NOTE | 2021-08-10 10:50 | PCM.PROGNOTE ---
Subjective Subjective This 71-year-old female with multiple comorbidities was seen bedside postoperative day #2 left foot transmetatarsal amputation with additional debridement of anterior ankle ulcer secondary to osteomyelitis, chronic ulcer, and abscess. She denies fever, chill, nausea, vomiting, chest pain, shortness of breath, or calf pain. Her pain is manageable and consistent with her preoperative status. Her daughter is bedside. She had a blood transfusion yesterday. Objective Data Objective Data Vital Signs: Vital Signs Temp Pulse Resp BP Pulse Ox 98.1 F 69 18 156/65 H 99 08/10/21 10:30 08/10/21 10:32 08/10/21 10:30 08/10/21 10:32 08/10/21 10:30 Oxygen Delivery Method Room Air Weight: 82.7 kg Body Mass Index (BMI) 34.4 Intake & Output: Intake and Output for Last 24 Hours 08/08/21 08/09/21 08/10/21 23:59 23:59 23:59 Intake Total 1762.5 / 1762.5 1682.5 / 1982.5 1672.5 / 1672.5 Output Total 825 / 825 1000 / 1300 900 / 900 Balance 937.5 / 937.5 682.5 / 682.5 772.5 / 772.5 Lab / Micro Data Result Diagrams: 08/10/21 06:46 08/10/21 06:46 Labs: Laboratory Results - last 24 hr 08/09/21 09:25: Blood Type AB POSITIVE, Antibody Screen NEGATIVE, Crossmatch See Detail 08/09/21 12:10: POC Glucose 108 08/09/21 16:00: Vancomycin Trough 17.1 H 08/09/21 17:11: POC Glucose 99 08/09/21 22:09: POC Glucose 168 H 08/10/21 06:34: POC Glucose 110 08/10/21 06:46: WBC 11.1 H, RBC 3.07 L, Hgb 8.7 L, Hct 27.0 L, MCV 87.9, MCH 28.3, MCHC 32.2 D, RDW Std Deviation 46.0 H, RDW Coeff of Jenna 14.3, Plt Count 267, MPV 8.6, Immature Gran % (Auto) 0.500, Neut % (Auto) 75.5 H, Lymph % (Auto) 13.6 L, [place] % (Auto) 8.3, Eos % (Auto) 1.7, Baso % (Auto) 0.4, Absolute Neuts (auto) 8.4 H, Absolute Lymphs (auto) 1.51, Nucleated RBC % 0 08/10/21 06:46: Sodium 138, Potassium 3.7, Chloride 111 H, Carbon Dioxide 20.0 L, Anion Gap 7, BUN 64 H, Creatinine 1.63 H, Estim Creat Clear Calc 23.89, Est GFR (MDRD) Af Amer 40 L, Est GFR (MDRD) Non-Af 33 L, BUN/Creatinine Ratio 39.3 H, Glucose 119 H, Calcium 8.2 L Micro: Microbiology 08/07/21 15:56 Blood Culture (Wb) - Right Wrist Blood Culture - Preliminary No growth in 48 hours. 08/07/21 15:11 Blood Culture (Wb) - Anticubital Right Blood Culture - Preliminary No growth in 48 hours. 08/08/21 15:24 Tissue - Left Foot Gram Stain - Final 08/08/21 15:24 Tissue - Left Foot Wound Culture - Preliminary No growth-Final to follow 08/08/21 15:24 Tissue - Left Foot Gram Stain - Final 08/08/21 15:24 Tissue - Left Foot Wound Culture - Preliminary Staphylococcus aureus GNR lactose livestock commission agent 08/07/21 15:22 Wound - Left Foot Gram Stain - Final 08/07/21 15:22 Wound - Left Foot Wound Culture - Preliminary Staphylococcus aureus GNR lactose livestock commission agent 08/08/21 08:40 Nasal Secretion SARS-CoV-2 Antigen (Rapid) - Final Radiography Diagnostic Testing: Radiology Impression Foot X-Ray 08/08/21 13:41 IMPRESSION: Transmetatarsal amputation of all 5 rays of the left foot. Electronically Signed: Kuldeep Khan MD at 2:24 EDT Tel , Service support , Physical Exam Const alert and oriented x3 General Appearance: cooperative HEENT normocephalic Extremity Extremity Narrative: No calf tenderness; negative Zheng sign Transmetatarsal amputation left foot General Extremity: edema and no tenderness to palpation of joints or extremities; Negative for cyanosis Skin Skin Narrative: There is no purulence, odor, erythema, or streaking noted. There is no bogginess or fluctuance noted on palpation. Dressing remains clean dry and intact without strikethrough Psych cooperative and affect normal Assessment & Plan Assessment/Plan (1) Type 2 diabetes mellitus with diabetic foot infection: (2) Peripheral vascular disease: (3) Cellulitis of left lower limb: (4) Foot osteomyelitis, left: PLAN: I reviewed and discussed her case today. She is afebrile and her vital signs are stable. White blood cell count 11.1. The following work up and care recommendations were made: Dressing: Betadine wet-to-dry gauze was to the incision amputation stump site and Aquacel Ag to the anterior ankle wound site. Secondary dressing consisting of gauze abdominal pad Kerlix and lightly applied Alejandro wrap. I recommend changes at least biweekly. Offload: To maintain a nonweightbearing status left lower extremity Vascular: To follow-up with Dr. Aguilar inpatient versus outpatient. She has monophasic forms and prior vascular surgery intervention. Pain: Controlled with oral and IV pain medication Host factors: She is uncontrolled diabetes and known peripheral vascular disease amongst her other comorbidities. Medical management per hospitalist is greatly appreciated. Nutritional supplementation was ordered to optimize healing. Infection: She was started on vancomycin and cefepime. Deep wound cultures were obtained including aerobic, anaerobic, and MRSA PCR. So far she has MRSA positive growth and gram negative raj lactose livestock commission agent. ID on consult and input is appreciated; Flagyl oral added. Post amputation and irrigation clearance fragments were also obtained from the resected metatarsal and all of these results are still pending. She already has limb loss and her current infected ulcer status is limb and life-threatening. It appears her initial necrotic and main infection is maintained now in the postoperative setting to the left lower limb. She still remains at risk for a below or above-knee amputation. I answered all the patient's questions. Please do not hesitate to call if you have any questions. I will continue to follow her while in house Cristal Schmitz DPM, [facility] [phone]
[2021-08-10 11:55] LABS: Bedside Glucose 145 mg/dL (70-110)
[2021-08-10] MEDS: Insulin Lispro 100 UNIT/ML INSULN.PEN SC ×2 (16:22→21:42)
[2021-08-10 17:10] LABS: Bedside Glucose 171 mg/dL (70-110)
[2021-08-10] MEDS: Vancomycin IV 1,000 MG/200 ML BAG 200 MG IV (17:15)
[2021-08-10] MEDS: Nortriptyline 25 MG Capsule 50 MG PO (21:38)
[2021-08-10] MEDS: Gabapentin 400 MG Capsule 800 MG PO (21:38)
[2021-08-10] MEDS: Atorvastatin Calcium 80 MG Tablet PO (21:47)
[2021-08-10] MEDS: MELATONIN 3 MG TABLET PO (21:51)
[2021-08-10 22:11] LABS: Bedside Glucose 154 mg/dL (70-110)
[2021-08-11] VITALS (9 sets, daily range): BP systolic 152–157; BP diastolic 60–69; PULSE 69–82; RESP 16–18; TEMP 36.6–37.2; O2SAT 99–100
[2021-08-11] MEDS: Acetaminophen 325 MG Tablet 650 MG PO ×3 (05:18→23:37)
[2021-08-11] MEDS: oxyCODONE 5 MG Tablet PO ×3 (05:18→23:36)
[2021-08-11] MEDS: Levothyroxine 100 MCG Tablet 200 MCG PO (05:20)
[2021-08-11] MEDS: metroNIDAZOLE 500 MG Tablet PO ×3 (05:21→23:41)
[2021-08-11 06:35] LABS: Bedside Glucose 115 mg/dL (70-110)
[2021-08-11 06:53] LABS: Absolute Lymphocyte Count 1.18 X10^3/uL (0.83-4.51); Absolute Neutrophil Count 8.7 X10^3/uL (2.0-7.7); Basophil# 0.04 X10^3/uL; Basophil% 0.4 % (0-1); Eosinophil# 0.37 X10^3/uL; Eosinophils% 3.3 % (0-5); Hematocrit 28.1 % (37-47); Hemoglobin 8.9 g/dL (12.0-15.0); Lymphocyte # 1.18 X10^3/ul (0.83-4.51); Lymphocyte % 10.6 % (19-41); Mean Corp Hgb Conc 31.7 g/dL (32-36); Mean Corpuscular Volume 88.4 fL (81-99); Mean Platelet Vol. 8.5 fl (6.2-12.0); Monocyte# 0.74 X10^3/uL; Monocyte% 6.7 % (0-10); NRBC Flagged by Analyzer 0 % (0-5); Neutrophil # 8.71 X10^3/uL (2.7-7.7); Neutrophil % 78.4 % (47-70); Platelet Count 294 K/mm3 (150-450); RBC Distribution Width CV 13.9 % (11.6-14.6); RBC Distribution Width SD 45.4 fl (35.1-43.9); Red Blood Count 3.18 M/mm3 (4.2-5.4); White Blood Count 11.1 K/mm3 (4.4-11.0)
[2021-08-11 07:29] LABS: Anion Gap 7 (5-15); BUN 69 mg/dL (7-18); BUN/Creat Ratio 43.4 RATIO (10-20); Calcium,Total 8.6 mg/dL (8.5-10.1); Chloride 110 mmol/L (98-107); Creatinine, Serum 1.59 mg/dL (0.55-1.02); EST Glomerular Filtration Rate 34 mL/min (>60); Est Glom Filt Rate - Afr Amer 41 mL/min (>60); Estimated Creatinine Clearance 24.49 ml/min; Glucose 124 mg/dL (74-106); Potassium 3.9 mmol/L (3.5-5.1); Sodium Level 138 mmol/L (136-145)
[2021-08-11] MEDS: Juven (unflavored) Packet 1 PACKET PO ×2 (08:50→16:32)
[2021-08-11] MEDS: Pantoprazole Sodium 40 MG Tablet PO (08:51)
[2021-08-11] MEDS: Docusate Sodium 100 MG Capsule 200 MG PO ×2 (08:51→23:40)
[2021-08-11] MEDS: Polyethylene Glycol 3350 17 GM PACKET PO (08:51)
[2021-08-11] MEDS: amLODIPine 10 MG Tablet PO (08:55)
[2021-08-11] MEDS: Metoprolol Tartrate 25 MG Tablet PO ×2 (08:55→23:43)
[2021-08-11] MEDS: Potassium Chloride Oral Tablet 10 MEQ PO (09:02)
--- NOTE | 2021-08-11 10:27 | PCM.PROGNOTE ---
Subjective Subjective Patient was seen this morning for follow up on left foot and ankle/leg ulcers. She is resting in bed, no complaints. She is afebrile, no complaints of fever, chills, nausea or vomiting. Objective Data Objective Data Vital Signs: Vital Signs Temp Pulse Resp BP Pulse Ox 98.0 F 77 18 152/68 H 99 08/11/21 09:00 08/11/21 09:00 08/11/21 09:00 08/11/21 09:00 08/11/21 09:00 Oxygen Delivery Method Room Air Weight: 83.9 kg Body Mass Index (BMI) 34.4 Intake & Output: Intake and Output for Last 24 Hours 08/09/21 08/10/21 08/11/21 23:59 23:59 23:59 Intake Total 1682.5 / 1982.5 2522.5 / 2522.5 Output Total 1000 / 1300 1650 / 1950 1000 / 1000 Balance 682.5 / 682.5 872.5 / 572.5 -1000 / -1000 Lab / Micro Data Result Diagrams: 08/11/21 06:20 08/11/21 06:20 Labs: Laboratory Results - last 24 hr 08/10/21 11:32: POC Glucose 145 H 08/10/21 16:20: POC Glucose 171 H 08/10/21 21:41: POC Glucose 154 H 08/11/21 06:20: WBC 11.1 H, RBC 3.18 L, Hgb 8.9 L, Hct 28.1 L, MCV 88.4, MCH 28.0, MCHC 31.7 L, RDW Std Deviation 45.4 H, RDW Coeff of Jenna 13.9, Plt Count 294, MPV 8.5, Immature Gran % (Auto) 0.600, Neut % (Auto) 78.4 H, Lymph % (Auto) 10.6 L, [place] % (Auto) 6.7, Eos % (Auto) 3.3, Baso % (Auto) 0.4, Absolute Neuts (auto) 8.7 H, Absolute Lymphs (auto) 1.18, Nucleated RBC % 0 08/11/21 06:20: Sodium 138, Potassium 3.9, Chloride 110 H, Carbon Dioxide 21.0, Anion Gap 7, BUN 69 H, Creatinine 1.59 H, Estim Creat Clear Calc 24.49, Est GFR (MDRD) Af Amer 41 L, Est GFR (MDRD) Non-Af 34 L, BUN/Creatinine Ratio 43.4 H, Glucose 124 H, Calcium 8.6 08/11/21 06:30: POC Glucose 115 H Micro: Microbiology 08/08/21 15:24 Tissue - Left Foot Gram Stain - Final 08/08/21 15:24 Tissue - Left Foot Wound Culture - Preliminary Staphylococcus aureus 08/07/21 15:22 Wound - Left Foot Gram Stain - Final 08/07/21 15:22 Wound - Left Foot Wound Culture - Preliminary Meth. resistant Staph. aureus Raoultella planticola GNR lactose streaming media specialist 08/07/21 15:22 Wound - Left Foot Anaerobic Culture - Preliminary Checking for anaerobes, further studies to follow. 08/08/21 15:24 Tissue - Left Foot Gram Stain - Final 08/08/21 15:24 Tissue - Left Foot Wound Culture - Final Staphylococcus aureus Citrobacter freundii Raoultella planticola 08/07/21 15:56 Blood Culture (Wb) - Right Wrist Blood Culture - Preliminary No growth in 48 hours. 08/07/21 15:11 Blood Culture (Wb) - Anticubital Right Blood Culture - Preliminary No growth in 48 hours. 08/08/21 08:40 Nasal Secretion SARS-CoV-2 Antigen (Rapid) - Final Physical Exam Const alert and oriented x3 General Appearance: cooperative HEENT normocephalic Extremity Extremity Narrative: No calf tenderness; negative Zheng sign bilateral. Transmetatarsal amputation left foot General Extremity: Negative for cyanosis Skin Skin Narrative: Left foot noted to have intact sutures distally at TMA site, there is ulceration plantar lateral foot which probes to distal amp site and there is noted to be some purulence present, there is no erythema, and no streaking noted, with ulceration with viable tissue, there is ulceration to the anterior ankle as well as the posterior distal leg down to subcutaneous tissue - the tissues are viable and granular with no evidence of infection. There is no bogginess or fluctuance noted on palpation to the left foot, ankle or leg. There is some localized edema to the left foot but no edema to the left leg. There is no evidence of acute ischemia to the foot or ankle bilateral, no open lesions or tissue break down on the right foot. Neuro Neuro Narrative: There is noted to be POP to the surgical site left foot. Psych cooperative and affect normal Assessment & Plan Assessment/Plan (1) Type 2 diabetes mellitus with diabetic foot infection: (2) Peripheral vascular disease: (3) Cellulitis of left lower limb: (4) Foot osteomyelitis, left: PLAN: Re-evaluation performed. Reviewed diagnotic data. She is afebrile and her vital signs are stable. White blood cell count 11.1. The following work up and care recommendations were made: Dressing: Iodoform packing plantar lateral foot ulcer to lateral distal incision site (3 sutures were removed to allow for drainage), otherwise Betadine wet-to-dry gauze was to the incision amputation stump site and Aquacel Ag to the anterior ankle and posterior leg wound sites. Secondary dressing consisting of gauze abdominal pad Kerlix and lightly applied Alejandro wrap. I recommend changing daily. Offload: To maintain a nonweightbearing status left lower extremity Vascular: To follow-up with Dr. Aguilar inpatient versus outpatient. She has monophasic waveform and prior vascular surgery intervention. There is no evidence of acute ischemia to the foot or ankle. Pain: Controlled with oral and IV pain medication Host factors: She is uncontrolled diabetes and known peripheral vascular disease amongst her other comorbidities. Medical management per hospitalist is greatly appreciated. Nutritional supplementation was ordered to optimize healing. Infection: She is on antibiotics- vancomycin, flagyl, and cefepime. Deep wound cultures were obtained including aerobic, anaerobic, and MRSA PCR. So far she has MRSA positive growth - also reviewed clearance fragment results and noted to be staph aureus growing so far - final pending. ID on consult and input is appreciated. Given her multiple comorbidities she still remains at risk for a below or above-knee amputation. I answered all the patient's questions. We will continue to follow her while in house Also recommended nursing facility placement for wound care, nonweightbearing left foot, and possible IV antibiotics (pending ID recommendations). Discussed with medicine team.
--- NOTE | 2021-08-11 10:45 | CASEMGMT ---
Patient is agreeable to going to a shelter at discharge. SW spoke with patient about this and she is agreeable, but asked SW to talk with her daughter regarding where. SW called patient's daughter and left her a voice mail requesting a return call. Anna ALDANA
--- NOTE | 2021-08-11 10:58 | CASEMGMT ---
Patient's daughter called SARA back. She asked about rehab for patient. SARA explained that all of the nursing homes in the area offer rehab. SARA told her generally speaking when patient's go somewhere for rehab it could b 2-3 weeks or more depending on the patient. SARA told her it depends on how she does with therapy. She asked if we could meet tomorrow at 330 as she works until 3p. SARA told her that would be fine. Anna Hernandez REGISTERED APPRAISER JOVAN
--- NOTE | 2021-08-11 11:13 | WOUNDNOTE ---
wound photo: left plantar foot
--- NOTE | 2021-08-11 11:13 | WOUNDNOTE ---
wound photo: left foot
--- NOTE | 2021-08-11 11:14 | WOUNDNOTE ---
wound photo: left anterior ankle/ dorsal foot
--- NOTE | 2021-08-11 11:16 | WOUNDNOTE ---
wound photo: left posterior lower leg
[2021-08-11] MEDS: 0.9% Saline Lock 10 ML Syringe IV ×3 (11:46→23:37)
[2021-08-11 12:15] LABS: Bedside Glucose 119 mg/dL (70-110)
--- NOTE | 2021-08-11 12:27 | PN.HOSP_ITS ---
Documented by User: Jonh العلي 08/11/21 12:40 Subjective Subjective Patient is a 71-year-old female comfortably resting in bed, alert and oriented x3. Patient reports no development of symptoms overnight. Does not appear to be in acute distress. Denies chest pain, shortness of breath, palpitations, hemoptysis, sputum production, fever, chills, N/V/D. Objective Data Objective Data Vital Signs: Vital Signs Temp Pulse Resp BP Pulse Ox 98.0 F 77 18 152/68 H 99 08/11/21 09:00 08/11/21 09:00 08/11/21 09:00 08/11/21 09:00 08/11/21 09:00 Oxygen Delivery Method Room Air Weight: 184 lb 15.485 oz Body Mass Index (BMI) 34.4 Intake & Output: Intake and Output for Last 24 Hours 08/09/21 08/10/21 08/11/21 23:59 23:59 23:59 Intake Total 1682.5 / 1982.5 2522.5 / 2522.5 240 / 240 Output Total 1000 / 1300 1650 / 1950 1400 / 1400 Balance 682.5 / 682.5 872.5 / 572.5 -1160 / -1160 Lab / Micro Data Result Diagrams: 08/11/21 06:20 08/11/21 06:20 Labs: Laboratory Results - last 24 hr 08/10/21 16:20: POC Glucose 171 H 08/10/21 21:41: POC Glucose 154 H 08/11/21 06:20: WBC 11.1 H, RBC 3.18 L, Hgb 8.9 L, Hct 28.1 L, MCV 88.4, MCH 28.0, MCHC 31.7 L, RDW Std Deviation 45.4 H, RDW Coeff of Jenna 13.9, Plt Count 294, MPV 8.5, Immature Gran % (Auto) 0.600, Neut % (Auto) 78.4 H, Lymph % (Auto) 10.6 L, Pettis % (Auto) 6.7, Eos % (Auto) 3.3, Baso % (Auto) 0.4, Absolute Neuts (auto) 8.7 H, Absolute Lymphs (auto) 1.18, Nucleated RBC % 0 08/11/21 06:20: Sodium 138, Potassium 3.9, Chloride 110 H, Carbon Dioxide 21.0, Anion Gap 7, BUN 69 H, Creatinine 1.59 H, Estim Creat Clear Calc 24.49, Est GFR (MDRD) Af Amer 41 L, Est GFR (MDRD) Non-Af 34 L, BUN/Creatinine Ratio 43.4 H, Glucose 124 H, Calcium 8.6 08/11/21 06:30: POC Glucose 115 H 08/11/21 11:44: POC Glucose 119 H Micro: Microbiology 08/08/21 15:24 Tissue - Left Foot Gram Stain - Final 08/08/21 15:24 Tissue - Left Foot Wound Culture - Final Staphylococcus aureus Citrobacter freundii Raoultella planticola 08/08/21 15:24 Tissue - Left Foot Anaerobic Culture - Preliminary Checking for anaerobes, further studies to follow. 08/08/21 15:24 Tissue - Left Foot Gram Stain - Final 08/08/21 15:24 Tissue - Left Foot Wound Culture - Preliminary Staphylococcus aureus 08/08/21 15:24 Tissue - Left Foot Anaerobic Culture - Preliminary Checking for anaerobes, further studies to follow. 08/07/21 15:22 Wound - Left Foot Gram Stain - Final 08/07/21 15:22 Wound - Left Foot Wound Culture - Preliminary Meth. resistant Staph. 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 08/07/21 15:56 Blood Culture (Wb) - Right Wrist Blood Culture - Preliminary No growth in 48 hours. 08/07/21 15:11 Blood Culture (Wb) - Anticubital Right Blood Culture - Preliminary No growth in 48 hours. 08/08/21 08:40 Nasal Secretion SARS-CoV-2 Antigen (Rapid) - Final Physical Exam Const alert, oriented x3 and no apparent distress HEENT head/scalp atraumatic and moist oral mucous membranes Head and Scalp: normocephalic Eyes PERRL, EOMs intact bilaterally and conjunctivae normal Neck no lymphadenopathy, supple and no JVD Resp normal respiratory effort, no retractions and no use of accessory muscles Cardio regular rate, regular rhythm, no murmurs and no JVD GI normal to inspection, nondistended, normoactive bowel sounds, soft to palpation and non-tender Extremity normal to inspection, full ROM and no clubbing, cyanosis or edema Skin no rashes or lesions noted, no wounds, skin turgor normal and no jaundice Neuro CN's II-XII intact bilaterally Psych affect normal Assessment & Plan Assessment/Plan (1) Left foot infection: (2) Malnutrition: (3) DM (diabetes mellitus), type 2, uncontrolled: (4) Osteomyelitis of great toe of left foot: (5) Ulcer of left foot due to type 2 diabetes mellitus: PLAN: Day 4 Discharge planning: Patient will most likely need discharge to SNF, case management following. 1) osteomyelitis of the great toe secondary to diabetic foot ulcer Status post transmetatarsal amputation of the left foot performed on 08/08/2021. Currently on vancomycin, Flagyl and cefepime. Vital signs stable, patient afebrile currently satting 98% on room air. WBCs currently 11,000. On my exam this morning, what remained of the left foot appear to be acutely inflamed, was bleeding and had some purulent discharge. Podiatry does not believe any further surgical interventions indicated at this time, wound was cleaned and antibiotics were continued. Will need to follow with podiatry and vascular on discharge. 2) CAD status post CABG and stents Continue to hold aspirin and Plavix in the event of further surgical i ntervention., continue Lipitor and metoprolol.. 3) HTN Continue amlodipine, and metoprolol, 4) hyperlipidemia Continue Lipitor. 5) hypothyroidism Continue Synthroid. 6) GERD Continue PPI. DVT prophylaxis - Heparin Patient seen by John Etienne PA-C, under the supervision of Dr. Lopez. Documented by User: Dr. Cj Lopez MD 08/11/21 13:07 Objective Data Lab / Micro Data Result Diagrams: 08/11/21 06:20 08/11/21 06:20 Assessment & Plan Addt'l Comments This patient was seen in conjunction with John Etienne PA-C. I have independently interviewed and examined the patient and reviewed pertinent historical, laboratory, and other data. Please refer to Jonh Etienne PA-C's note for details of this patient's presentation, findings, and recommendations. I have reviewed Jonh Etienne PA-C's note and concur with documented findings. In brief, patient is a 71-year-old lady currently on admission for diabetic foot wound with osteomyelitis involving the right great toe. Patient underwent transmetatarsal amputation of the left foot on 08/08/2021. Cultures so far positive for staph aureus, Citrobacter as well as Raoutella Physical Examination: GENERAL: cooperative HEENT: Atraumatic; EYES; Anicteric, Normal Conjunctiva NECK; supple, normal thyroid, RESPIRATORY: Diminished to auscultation CARDIOVASCULAR: Regular S1 S2, GI: soft, normoactive bowel sounds, : No Renal angle tenderness; EXTREMITIES: No edema, no clubbing, MUSCULOSKELETAL: Left foot in surgical dressing NEURO: Awake; no lateralizing signs. SKIN: No Rash PSYCH; Flat affect Assessment: 1. Diabetic foot infection involving the left foot with osteomyelitis 2. Coronary artery disease with previous CABG and subsequent PCI 3. Dyslipidemia 4. Hypertension 5. Hypothyroidism 6. GERD 7. Obesity with BMI 34.9 8. DVT prophylaxis 9. Physical deconditioning Recommendations: 1. I have discussed the results of my overview and impressions with the patient 2. Options for management were reviewed Charges/Coding Visit Charges Inpatient E&M: 00872 Subs Hosp L3
--- NOTE | 2021-08-11 13:29 | CON.PCM.ID_ITS ---
Assessment & Plan Assessment/Plan (1) DM (diabetes mellitus), type 2, uncontrolled: (2) Acute osteomyelitis of left foot: PLAN: Now s/p TMA 08/08/[address] Schmitz. Wound cx and surg cx so far with MRSA, raoultella, citrobacter, GNR. Clearance cx with some staph aureus. On vanc/cefepime/flagyl. Will increase dose of cefepime with improvement in GFR. Plan on picc and 6 weeks iv abx. Will follow, thank you HPI Consult Data Date of Consult: 08/11/21 HPI Narrative HPI Narrative: EBONIE WOLF, is a 71 F who presented 08/07 with L foot worsening drainage, purulence, odor. Minimal pain, no fever. Sx present for about a month, worsened over 2 weeks. Came to ED, admitted on vanc/cefepime. Taken to OR 08/[address] Schmitz for TMA. Flagyl added. Feeling better. Full ROS performed and neg except as noted above. [facility] Medical History Chest pain Chronic headaches Current use of insulin Depression Difficulty chewing Difficulty swallowing DVT (deep venous thrombosis) Dyspnea High cholesterol History of stress test Irregular heartbeat Myocardial infarction Paralysis Post-menopausal Renal disease Restless legs Sleep apnea Status post amputation of toe of left foot Stroke Thyroiditis Ulcer Home Medications atorvastatin 80 mg PO QHS #30 tab 04/22/17 [Rx Last Taken Unknown] clopidogrel 75 mg PO DAILY #30 tab 04/22/17 [Rx Last Taken Unknown] multivitamin with folic acid [Thera] 1 tab PO DAILYCM #30 tab 04/22/17 [Rx Last Taken Unknown] nortriptyline 50 mg PO QHS #30 capsule 04/22/17 [Rx Last Taken Unknown] polyethylene glycol 3350 17 g PO DAILY #30 packet 04/22/17 [Rx Last Taken Unknown] Levemir FlexTouch U-100 Insuln 5 units SUBCUT DAILY 08/07/21 [History Last Taken Unknown] amlodipine 10 mg PO DAILY 08/07/21 [History Last Taken Unknown] aspirin 81 mg PO DAILY 08/07/21 [History Last Taken Unknown] docusate sodium 200 mg PO BID 08/07/21 [History Last Taken Unknown] furosemide 40 mg PO DAILY 08/07/21 [History Last Taken Unknown] gabapentin 30 mg PO BID 08/07/21 [History Last Taken Unknown] gabapentin 800 mg PO QHS 08/07/21 [History Last Taken Unknown] insulin aspart U-100 [Novolog Flexpen U-100 Insulin] 0 - 10 unit SUBCUT 4X/DAY 08/07/21 [History Last Taken Unknown] levothyroxine 200 mcg PO DAILY@0600 08/07/21 [History Last Taken Unknown] metoprolol tartrate 25 mg PO BID 08/07/21 [History Last Taken Unknown] pantoprazole 40 mg PO DAILY 08/07/21 [History Last Taken Unknown] potassium chloride [Micro-K 10] 10 meq PO DAILY 08/07/21 [History Last Taken Unknown] Allergy/AdvReac Type Severity Reaction Status Date / Time baclofen AdvReac Other Verified 08/07/21 13:36 Family History (Updated 08/07/21 @ 17:[address] Pritesh Cervantes MD) Other Diabetes Heart disease Surgical History History of heart artery stent S/P tubal ligation Status post arterial stent Status post coronary artery bypass graft Status post coronary artery stent placement Status post hysterectomy Social History Smoking Status: Never smoker Physical Exam Const alert and no apparent distress General Appearance: cooperative Exam Limitations: no limitations HEENT normocephalic and head/scalp atraumatic Eyes PERRL and EOMs intact bilaterally Neck supple and No nodes Resp normal air movement and clear to auscultation bilaterally Cardio regular rate and regular rhythm GI normal to inspection, nondistended, normoactive bowel sounds Extremity General Extremity: pulses abnormal Skin Skin Narrative: L foot s/p TMA. Plantar ulcer. Neuro CN's II-XII intact bilaterally Lab / Micro Data Result Diagrams: 08/11/21 06:20 08/11/21 06:20 Labs: Laboratory Results - last 24 hr 08/10/21 16:20: POC Glucose 171 H 08/10/21 21:41: POC Glucose 154 H 08/11/21 06:20: WBC 11.1 H, RBC 3.18 L, Hgb 8.9 L, Hct 28.1 L, MCV 88.4, MCH 28.0, MCHC 31.7 L, RDW Std Deviation 45.4 H, RDW Coeff of Jenna 13.9, Plt Count 294, MPV 8.5, Immature Gran % (Auto) 0.600, Neut % (Auto) 78.4 H, Lymph % (Auto) 10.6 L, Foard % (Auto) 6.7, Eos % (Auto) 3.3, Baso % (Auto) 0.4, Absolute Neuts (auto) 8.7 H, Absolute Lymphs (auto) 1.18, Nucleated RBC % 0 08/11/21 06:20: Sodium 138, Potassium 3.9, Chloride 110 H, Carbon Dioxide 21.0, Anion Gap 7, BUN 69 H, Creatinine 1.59 H, Estim Creat Clear Calc 24.49, Est GFR (MDRD) Af Amer 41 L, Est GFR (MDRD) Non-Af 34 L, BUN/Creatinine Ratio 43.4 H, Glucose 124 H, Calcium 8.6 08/11/21 06:30: POC Glucose 115 H 08/11/21 11:44: POC Glucose 119 H Micro: Microbiology 08/08/21 15:24 Tissue - Left Foot Gram Stain - Final 08/08/21 15:24 Tissue - Left Foot Wound Culture - Final Staphylococcus aureus Citrobacter freundii Raoultella planticola 08/08/21 15:24 Tissue - Left Foot Anaerobic Culture - Preliminary Checking for anaerobes, further studies to follow. 08/08/21 15:24 Tissue - Left Foot Gram Stain - Final 08/08/21 15:24 Tissue - Left Foot Wound Culture - Preliminary Staphylococcus aureus 08/08/21 15:24 Tissue - Left Foot Anaerobic Culture - Preliminary Checking for anaerobes, further studies to follow. 08/07/21 15:22 Wound - Left Foot Gram Stain - Final 08/07/21 15:22 Wound - Left Foot Wound Culture - Preliminary Meth. resistant Staph. 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 08/07/21 15:56 Blood Culture (Wb) - Right Wrist Blood Culture - Preliminary No growth in 48 hours.
--- NOTE | 2021-08-11 14:35 | CASEMGMT ---
SW provided patient with a list of SNF providers including quality and resource use data and consistent with the patient?s preferred geographic region, medical needs, and insurance network. SW let her know SW spoke to her daughter and she will meet with SW tomorrow when she gets off work. Plan; SNF pending dtr giving SARA their preferences. Anna Hernandez SECOND BUTLER JOVAN
[2021-08-11] MEDS: Menthol/Lanolin/Calamine/Znox 113 GM Tube 1 APPLIC TOPICAL ×2 (14:53→23:36)
[2021-08-11] MEDS: Heparin Injection (Vial) 5,000 UNIT/ML VIAL 5000 UNIT SC ×2 (16:28→23:47)
[2021-08-11] MEDS: Vancomycin IV 1,000 MG/200 ML BAG 200 MG IV (16:29)
[2021-08-11 16:50] LABS: Bedside Glucose 125 mg/dL (70-110)
[2021-08-11] MEDS: MELATONIN 3 MG TABLET PO (23:36)
[2021-08-11] MEDS: Atorvastatin Calcium 80 MG Tablet PO (23:41)
[2021-08-11] MEDS: Gabapentin 400 MG Capsule 800 MG PO (23:42)
[2021-08-11] MEDS: Nortriptyline 25 MG Capsule 50 MG PO (23:43)
[2021-08-12] VITALS (8 sets, daily range): BP systolic 150–153; BP diastolic 63–66; PULSE 65–74; RESP 15–16; TEMP 36.5–36.7; O2SAT 100
[2021-08-12 00:01] LABS: Bedside Glucose 121 mg/dL (70-110)
[2021-08-12] MEDS: Heparin Injection (Vial) 5,000 UNIT/ML VIAL 5000 UNIT SC ×2 (06:29→14:29)
[2021-08-12] MEDS: Levothyroxine 100 MCG Tablet 200 MCG PO (06:29)
[2021-08-12] MEDS: metroNIDAZOLE 500 MG Tablet PO (06:29)
[2021-08-12] MEDS: Menthol/Lanolin/Calamine/Znox 113 GM Tube 1 APPLIC TOPICAL ×2 (06:29→14:30)
[2021-08-12 06:40] LABS: Bedside Glucose 92 mg/dL (70-110)
[2021-08-12 07:10] LABS: Hematocrit 29.2 % (37-47); Hemoglobin 9.5 g/dL (12.0-15.0); Mean Corp Hgb Conc 32.5 g/dL (32-36); Mean Corpuscular Volume 86.1 fL (81-99); Mean Platelet Vol. 8.5 fl (6.2-12.0); Platelet Count 298 K/mm3 (150-450); RBC Distribution Width CV 13.8 % (11.6-14.6); RBC Distribution Width SD 43.7 fl (35.1-43.9); Red Blood Count 3.39 M/mm3 (4.2-5.4); White Blood Count 8.1 K/mm3 (4.4-11.0)
[2021-08-12 07:43] LABS: Anion Gap 11 (5-15); BUN 71 mg/dL (7-18); BUN/Creat Ratio 47.7 RATIO (10-20); Calcium,Total 8.5 mg/dL (8.5-10.1); Chloride 107 mmol/L (98-107); Creatinine, Serum 1.49 mg/dL (0.55-1.02); EST Glomerular Filtration Rate 37 mL/min (>60); Est Glom Filt Rate - Afr Amer 44 mL/min (>60); Estimated Creatinine Clearance 26.13 ml/min; Glucose 116 mg/dL (74-106); Sodium Level 138 mmol/L (136-145)
[2021-08-12] MEDS: Metoprolol Tartrate 25 MG Tablet PO (09:09)
[2021-08-12] MEDS: Docusate Sodium 100 MG Capsule 200 MG PO (09:09)
[2021-08-12] MEDS: Polyethylene Glycol 3350 17 GM PACKET PO (09:09)
[2021-08-12] MEDS: Potassium Chloride Oral Tablet 10 MEQ PO (09:09)
[2021-08-12] MEDS: Pantoprazole Sodium 40 MG Tablet PO (09:09)
[2021-08-12] MEDS: amLODIPine 10 MG Tablet PO (09:09)
[2021-08-12] MEDS: Juven (unflavored) Packet 1 PACKET PO (09:09)
[2021-08-12] MEDS: Acetaminophen 325 MG Tablet 650 MG PO ×2 (09:27→16:26)
[2021-08-12] MEDS: oxyCODONE 5 MG Tablet PO ×2 (09:27→16:26)
--- NOTE | 2021-08-12 09:55 | CASEMGMT ---
Physician would like to discharge patient today. Patient's daughter was going to meet with SARA today at 330, however SW needs to know SNF choices before then. Patient's daughter is coming to [facility] this am. SARA spoke with patient and her daughter when she arrived at [facility]. She had some questions about the Medicaid application, SW answered. SARA told her they are ready to discharge her today so SW needs to know where she would like to go. She pulled out the list SARA left in the room. Her only 2 choices are [facility] and [facility]. SARA told her that patient will only be able to stay in TCU for 20 days as that is how long Medicare pays 100% for SNF. SARA explained that after that she will be on pending Medicaid and TCU does not take Medicaid. SARA told her patient will then have to transition to another mcfp or home. She said she still wants to proceed with TCU. She has the Medicaid application and is filling it out now. SARA checked with TCU and they would have a bed for patient. SARA let patient and her daughter know this information. Plan: d/c to [facility] under skilled level of care. Anna Hernandez CUSTOM TAILORChris ALDANA
--- NOTE | 2021-08-12 10:59 | DCINST_ITS ---
Discharge Instructions Diet Discharge Diet: No restrictions Activity Discharge Activity: Return to Normal Activity Weight Bearing Status: Weight bearing as tolerated Dressing / Incision Call your doctor if you observe: Fever of 101 or Higher, Numbness or Tingling, Shortness of breath, Dizziness, Chest pain, Increased palpitations (irregular heartbeat) and Calf discomfort Follow Up Care Please Follow Up With: Primary care provider When: Within the next two weeks. Test Results: Test results from this visit will be discussed in further detail at your follow-up appointment, if applicable. Discharge Plan Admission Admit Date/Time: 08/07/21 17:01 Attending Provider: Cj Lopez Primary Care Provider: Elia Ceja Chi Consulting Providers: Lai Muhammad ; Cristal Schmitz Instructions Additional Instructions / Restrictions: -Change left foot dressing every days with Betadine wet-to-dry gauze to the transmetatarsal amputation site incision and iodoform packing to plantar foot ulcer site. Apply Aquacel Ag to the ankle and leg wound. Cover with gauze, abdominal pad and a well padded manner, Kerlix. Apply Alejandro wrap in a gentle manner. -It is okay to alternate between elevation and dangling to control swelling and rest pain. -Maintain a nonweightbearing status to the left lower extremity. It is okay to put the heel down for transfers if you are about to lose your balance. Use an assistive device and ask for help. Discharge Orders/Prescriptions Prescriptions: New ertapenem [Invanz] 1 gram recon soln 1 g IV Q24H 38 Days Qty: 38 RF: 0 vancomycin 1,000 mg recon soln 1 g IV .qam 38 Days Qty: 38 RF: 0 No Action atorvastatin 80 MG tablet 80 mg PO QHS Qty: 30 RF: 0 polyethylene glycol 3350 17 GM powder in packet 17 g PO DAILY Qty: 30 RF: 0 nortriptyline 25 MG capsule 50 mg PO QHS Qty: 30 RF: 0 clopidogrel 75 MG tablet 75 mg PO DAILY Qty: 30 RF: 0 multivitamin with folic acid [Thera] 1 TABLET tablet 1 tab PO DAILYCM Qty: 30 RF: 0 furosemide 40 mg Tablet 40 mg PO DAILY RF: 0 potassium chloride [Micro-K 10] 10 mEq Capsule, Extended Release 10 meq PO DAILY RF: 0 amlodipine 10 mg Tablet 10 mg PO DAILY RF: 0 docusate sodium 100 mg Capsule 200 mg PO BID RF: 0 insulin aspart U-100 [Novolog Flexpen U-100 Insulin] 100 unit/mL (3 mL) Ins ulin Pen 0 - 10 unit SUBCUT 4X/DAY RF: 0 metoprolol tartrate 25 mg Tablet 25 mg PO BID RF: 0 aspirin 81 mg Capsule 81 mg PO DAILY RF: 0 gabapentin 600 MG tablet 30 mg PO BID RF: 0 pantoprazole 20 MG tablet,delayed release (DR/EC) 40 mg PO DAILY RF: 0 levothyroxine 150 MCG tablet 200 mcg PO DAILY@0600 RF: 0 gabapentin 300 MG capsule 800 mg PO QHS RF: 0 Levemir FlexTouch U-100 Insuln 100 UNITS/ML insulin pen 5 units subcut DAILY RF: 0 Referrals / Follow Up: Henry Aguilar MD [STAFF PHYSICIAN] - Within 2 Weeks Cristal Schmitz DPM [STAFF PHYSICIAN] - In 1 Week (Wound care center; [phone].) Elia Ceja Chi, MD [Primary Care Provider] -
--- NOTE | 2021-08-12 11:00 | PCM.TXEXTCAR ---
Diet 08/11/21 13:15 Diet: Cardiac: Calorie-Controlled Food consistency:: Regular Liquid Consistency:: Regular/Thin Dietary Modifications:: Sodium Restricted Is pt able to select menu?: Yes How many daily calories?: 1800 calorie Wound(s) left foot: Wound Type: Amputation Dressing Change: nugauze packing and betadine gauze left medial foot: Wound Type: Neuropathic/Diabetic Foot Ulcer Dressing Change: Aquacel left lateral foot (5th toe amp site): Wound Type: Neuropathic/Diabetic Foot Ulcer Dressing Change: Aquacel left anterior ankle: Wound Type: Neuropathic/Diabetic Foot Ulcer Dressing Change: Adaptic COCCYX/ALEXUS BUTTOCKS: Wound Type: Pressure Injury left plantar foot: Wound Type: Neuropathic/Diabetic Foot Ulcer Dressing Change: Packed with NuGauze left posterior lower leg: Wound Type: Abrasion Dressing Change: Adaptic Therapies Weight Bearing: Partial weight bearing Extremity Affected:: Left Lower Physical Therapy: Eval and Treat Occupational Therapy: Eval and Treat Speech Therapy: Eval and Treat Problem/Diagnosis (1) DM (diabetes mellitus), type 2, uncontrolled: Status: Chronic (2) Acute osteomyelitis of left foot: Status: Acute Allergies/Procedures Done in Hospital Allergies baclofen Adverse Reaction (Verified 08/07/21 13:36) Other confusion Type of Care/Length of Stay Estimated LOS: Convalescent Care Less Than 30 days Type of Care Needed: Skilled Rehab Potential: Good Prognosis: Good Additional Orders/Day of Discharge Day of Discharge: 08/12/21 Dietary and Speech Recommendations Dietitian Recommendations/Changes: Continue 1800 calorie/ Cardiac/ Sodium Restricted Continue Vlad bid Discharge Plan Admission Admit Date/Time: 08/07/21 17:01 Primary Reason for Your Visit: LLE wound Attending Provider: Cj Lopez Primary Care Provider: Elia Ceja Chi Consulting Providers: Lai Muhammad ; Cristal Schmitz Instructions Additional Instructions / Restrictions: -Change left foot dressing every days with Betadine wet-to-dry gauze to the transmetatarsal amputation site incision and iodoform packing to plantar foot ulcer site. Apply Aquacel Ag to the ankle and leg wound. Cover with gauze, abdominal pad and a well padded manner, Kerlix. Apply Alejandro wrap in a gentle manner. -It is okay to alternate between elevation and dangling to control swelling and rest pain. -Maintain a nonweightbearing status to the left lower extremity. It is okay to put the heel down for transfers if you are about to lose your balance. Use an assistive device and ask for help. Discharge Orders/Prescriptions Prescriptions: New ertapenem [Invanz] 1 gram recon soln 1 g IV Q24H 38 Days Qty: 38 RF: 0 vancomycin 1,000 mg recon soln 1 g IV .qam 38 Days Qty: 38 RF: 0 Continued atorvastatin 80 MG tablet 80 mg PO QHS Qty: 30 RF: 0 polyethylene glycol 3350 17 GM powder in packet 17 g PO DAILY Qty: 30 RF: 0 nortriptyline 25 MG capsule 50 mg PO QHS Qty: 30 RF: 0 clopidogrel 75 MG tablet 75 mg PO DAILY Qty: 30 RF: 0 multivitamin with folic acid [Thera] 1 TABLET tablet 1 tab PO DAILYCM Qty: 30 RF: 0 furosemide 40 mg Tablet 40 mg PO DAILY RF: 0 potassium chloride 10 mEq Capsule, Extended Release 10 meq PO DAILY RF: 0 amlodipine 10 mg Tablet 10 mg PO DAILY RF: 0 docusate sodium 100 mg Capsule 200 mg PO BID RF: 0 insulin aspart U-100 [Novolog Flexpen U-100 Insulin] 100 unit/mL (3 mL) Insulin Pen 0 - 10 unit SUBCUT 4X/DAY RF: 0 metoprolol tartrate 25 mg Tablet 25 mg PO BID RF: 0 aspirin 81 mg Capsule 81 mg PO DAILY RF: 0 gabapentin 600 MG tablet 30 mg PO BID RF: 0 pantoprazole 20 MG tablet,delayed release (DR/EC) 40 mg PO DAILY RF: 0 levothyroxine 150 MCG tablet 200 mcg PO DAILY@0600 RF: 0 gabapentin 300 MG capsule 800 mg PO QHS RF: 0 Levemir FlexTouch U-100 Insuln 100 UNITS/ML insulin pen 5 units subcut DAILY RF: 0 Referrals / Follow Up: Henry Aguilar MD [STAFF PHYSICIAN] - Within 2 Weeks Cristal Schmitz DPM [STAFF PHYSICIAN] - In 1 Week (Wound care center; [phone].) Lai Muhammad MD [STAFF PHYSICIAN] - Within 2 Weeks Elia Ceja Chi, MD [Primary Care Provider] - Within 2 Weeks Disposition Disposition (needs filled in before D/C Order can be placed): Home, Self Care
--- NOTE | 2021-08-12 11:10 | PN.ID_ITS ---
Physical Exam Narrative Feeling better, daughter at bedside, no fever Const alert General Appearance: cooperative Resp normal air movement and clear to auscultation bilaterally Cardio regular rate and regular rhythm GI normal to inspection, nondistended, normoactive bowel sounds Skin Skin Narrative: foot wrapped ID ID: Route of nutrition/ use of supplements: [] Nutritional Intake: [] IV Site: [] Ryan Catheter: [] Assessment & Plan Assessment/Plan (1) DM (diabetes mellitus), type 2, uncontrolled: (2) Acute osteomyelitis of left foot: PLAN: Now s/p TMA 08/08/[address] Schmitz. Wound cx and surg cx so far with MRSA, raoultella, citrobacter. Clearance cx with some staph aureus. On vanc/cefepime/flagyl. On raoultella is R to cefepime. Will change to vanc/erta, stop date 09/19/21, weekly labs. Will order picc. Unvaccinated for covid, pt agrees to shot here. Will follow, d/w primary team and supervisor case loading
[2021-08-12 11:56] LABS: Bedside Glucose 127 mg/dL (70-110)
--- NOTE | 2021-08-12 13:00 | CASEMGMT ---
SW did tell patient and her daughter that because patient is not vaccinated she will have to quarantine for 14 days and that means no visitation unless she is having a really hard time and needs to see family she may be able to get a compassionate care visit. Anna Hernandez CANARY BREEDER JOVAN
--- NOTE | 2021-08-12 13:59 | PCM.DC.SUM ---
Documented by User: Jonh العلي 08/12/21 14:06 Providers Date of Admission: 08/07/21 Primary Care Physician: Dr. 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 Comment: Reason for Consult:: Left DM foot wound Consult: Podiatry Routine Consulting Provider: Cristal Schmitz Reason for Consult: Osteo and foot ulcer on left EMERGENT Consult: No MD Notified: Yes Date Notified: 08/07/21 Time Notified: 18:05 Method of Notification: Verbal Reason For Visit: OSTEOMYELITIS Diagnosis Discharge Diagnosis (1) DM (diabetes mellitus), type 2, uncontrolled: Status: Chronic Code(s): E11.65 - Type 2 diabetes mellitus with hyperglycemia (2) Acute osteomyelitis of left foot: Status: Acute Code(s): M86.172 - Other acute osteomyelitis, left ankle and foot Medications at Discharge Home Medications atorvastatin 80 mg PO QHS #30 tab 04/22/17 clopidogrel 75 mg PO DAILY #30 tab 04/22/17 multivitamin with folic acid [Thera] 1 tab PO DAILYCM #30 tab 04/22/17 nortriptyline 50 mg PO QHS #30 capsule 04/22/17 polyethylene glycol 3350 17 g PO DAILY #30 packet 04/22/17 Levemir FlexTouch U-100 Insuln 5 units SUBCUT DAILY 08/07/21 amlodipine 10 mg PO DAILY 08/07/21 aspirin 81 mg PO DAILY 08/07/21 docusate sodium 200 mg PO BID 08/07/21 furosemide 40 mg PO DAILY 08/07/21 gabapentin 30 mg PO BID 08/07/21 gabapentin 800 mg PO QHS 08/07/21 insulin aspart U-100 [Novolog Flexpen U-100 Insulin] 0 - 10 unit SUBCUT 4X/DAY 08/07/21 levothyroxine 200 mcg PO DAILY@0600 08/07/21 metoprolol tartrate 25 mg PO BID 08/07/21 pantoprazole 40 mg PO DAILY 08/07/21 potassium chloride 10 meq PO DAILY 08/07/21 ertapenem [Invanz] 1 g IV Q24H 38 Days #38 ea 08/12/21 vancomycin 1 g IV .qam 38 Days #38 ea 08/12/21 Hospital Course Summary of Care Provided Minutes Spent on Discharge: 35 Hospital Course: Disposition: Patient will transfer to TCU today. 1) osteomyelitis of the great toe secondary to diabetic foot ulcer Status post transmetatarsal amputation of the left foot performed on 08/08/2021. Vital signs stable, patient afebrile currently satting 98% on room air. WBCs currently 8,000. On my exam this morning, patient denied any complaints of her left lower extremity and appeared stable. ID and and podiatry would not proceed with any further acute care at this time, and believe patient is ready for discharge. PICC line will be installed today for ongoing administration of vancomycin and ertapenem for 6 weeks. Patient to transfer over to TCU and follow-up with PCP, podiatry and ID within the next 2 weeks. 2) CAD status post CABG and stents Continue aspirin, Plavix, metoprolol and Lipitor. 3) HTN Continue amlodipine, and metoprolol, 4) hyperlipidemia Continue Lipitor. 5) hypothyroidism Continue Synthroid. 6) GERD Continue PPI. 7) vaccination status Patient agreeable to receive Covid vaccine prior to discharge. Patient seen by Jonh Etienne PA-C, under the supervision of Dr. Lopez. Physical Exam Narrative Patient is a 71-year-old female who is comfortably resting in bed, alert and orient x3. Patient denies development of any new symptoms overnight. Does not display any acute distress. Denies chest pain, shortness of breath, palpitations, hemoptysis, sputum production, fever, chills, N/V/D. Const alert, oriented x3 and no apparent distress HEENT normocephalic, head/scalp atraumatic and hearing grossly normal bilaterally Eyes PERRL, EOMs intact bilaterally and conjunctivae normal Neck no lymphadenopathy, supple and no JVD Resp normal respiratory effort, no retractions, no use of accessory muscles and clear to auscultation bilaterally Cardio regular rate, regular rhythm, no murmurs and no JVD GI normal to inspection, nondistended, normoactive bowel sounds, soft to palpation and non-tender Extremity normal to inspection, full ROM and no clubbing, cyanosis or edema Skin no rashes or lesions noted, no wounds and skin turgor normal Neuro CN's II-XII intact bilaterally Psych affect normal Weight / BMI Weight Weight: 191 lb 9.307 oz Body Mass Index (BMI) 34.4 ABG / Lab / Microbiology Data Result Diagrams: 08/12/21 06:52 08/12/21 06:52 Laboratory: Laboratory Results - last 24 hr 08/09/21 09:25: Crossmatch See Detail 08/11/21 16:31: POC Glucose 125 H 08/11/21 23:35: POC Glucose 121 H 08/12/21 06:27: POC Glucose 92 08/12/21 06:52: WBC 8.1, RBC 3.39 L, Hgb 9.5 L, Hct 29.2 L, MCV 86.1, MCH 28.0, MCHC 32.5, RDW Std Deviation 43.7, RDW Coeff of Jenna 13.8, Plt Count 298, MPV 8.5 08/12/21 06:52: Sodium 138, Potassium 4.0, Chloride 107, Carbon Dioxide 20.0 L, Anion Gap 11, BUN 71 H, Creatinine 1.49 H, Estim Creat Clear Calc 26.13, Est GFR (MDRD) Af Amer 44 L, Est GFR (MDRD) Non-Af 37 L, BUN/Creatinine Ratio 47.7 H, Glucose 116 H, Calcium 8.5, Magnesium 2.0 08/12/21 11:22: POC Glucose 127 H Microbiology: Microbiology 08/07/21 15:11 Blood Culture (Wb) - Anticubital Right Blood Culture - Final No growth in 5 days. 08/07/21 15:22 Wound - Left Foot Gram Stain - Final 08/07/21 15:22 Wound - Left Foot Wound Culture - Final Meth. resistant Staph. aureus Raoultella planticola Citrobacter freundii 08/07/21 15:22 Wound - Left Foot Anaerobic Culture - Final No anaerobic bacteria isolated. 08/08/21 15:24 Tissue - Left Foot Gram Stain - Final 08/08/21 15:24 Tissue - Left Foot Wound Culture - Final Meth. resistant Staph. aureus 08/08/21 15:24 Tissue - Left Foot Anaerobic Culture - Preliminary Checking for anaerobes, further studies to follow. 08/08/21 15:24 Tissue - Left Foot Gram Stain - Final 08/08/21 15:24 Tissue - Left Foot Wound Culture - Final Staphylococcus aureus Citrobacter freundii Raoultella planticola 08/08/21 15:24 Tissue - Left Foot Anaerobic Culture - Preliminary Checking for anaerobes, further studies to follow. 08/07/21 15:56 Blood Culture (Wb) - Right Wrist Blood Culture - Preliminary No growth in 48 hours. 08/08/21 08:40 Nasal Secretion SARS-CoV-2 Antigen (Rapid) - Final Meaningful Use Info Meaningful Use Diagnoses (Choose all that apply): None applicable Discharge Plan Admission Admit Date/Time: 08/07/21 17:01 Primary Reason for Your Visit: LLE wound Attending Provider: Cj Lopez Primary Care Provider: Elia Ceja Chi Consulting Providers: Lai Muhammad ; Cristal Schmitz Instructions Additional Instructions / Restrictions: -Change left foot dressing every days with Betadine wet-to-dry gauze to the transmetatarsal amputation site incision and iodoform packing to plantar foot ulcer site. Apply Aquacel Ag to the ankle and leg wound. Cover with gauze, abdominal pad and a well padded manner, Kerlix. Apply Alejandro wrap in a gentle manner. -It is okay to alternate between elevation and dangling to control swelling and rest pain. -Maintain a nonweightbearing status to the left lower extremity. It is okay to put the heel down for transfers if you are about to lose your balance. Use an assistive device and ask for help. Discharge Orders/Prescriptions Prescriptions: New ertapenem [Invanz] 1 gram recon soln 1 g IV Q24H 38 Days Qty: 38 RF: 0 vancomycin 1,000 mg recon soln 1 g IV .qam 38 Days Qty: 38 RF: 0 Continued atorvastatin 80 MG tablet 80 mg PO QHS Qty: 30 RF: 0 polyethylene glycol 3350 17 GM powder in packet 17 g PO DAILY Qty: 30 RF: 0 nortriptyline 25 MG capsule 50 mg PO QHS Qty: 30 RF: 0 clopidogrel 75 MG tablet 75 mg PO DAILY Qty: 30 RF: 0 multivitamin with folic acid [Thera] 1 TABLET tablet 1 tab PO DAILYCM Qty: 30 RF: 0 furosemide 40 mg Tablet 40 mg PO DAILY RF: 0 potassium chloride 10 mEq Capsule, Extended Release 10 meq PO DAILY RF: 0 amlodipine 10 mg Tablet 10 mg PO DAILY RF: 0 docusate sodium 100 mg Capsule 200 mg PO BID RF: 0 insulin aspart U-100 [Novolog Flexpen U-100 Insulin] 100 unit/mL (3 mL) Insulin Pen 0 - 10 unit SUBCUT 4X/DAY RF: 0 metoprolol tartrate 25 mg Tablet 25 mg PO BID RF: 0 aspirin 81 mg Capsule 81 mg PO DAILY RF: 0 gabapentin 600 MG tablet 30 mg PO BID RF: 0 pantoprazole 20 MG tablet,delayed release (DR/EC) 40 mg PO DAILY RF: 0 levothyroxine 150 MCG tablet 200 mcg PO DAILY@0600 RF: 0 gabapentin 300 MG capsule 800 mg PO QHS RF: 0 Levemir FlexTouch U-100 Insuln 100 UNITS/ML insulin pen 5 units subcut DAILY RF: 0 Referrals / Follow Up: Henry Aguilar MD [STAFF PHYSICIAN] - Within 2 Weeks Cristal Schmitz DPM [STAFF PHYSICIAN] - In 1 Week ([facility] care center; [phone].) Lai Muhammad MD [STAFF PHYSICIAN] - Within 2 Weeks Elia Ceja Chi, MD [Primary Care Provider] - Within 2 Weeks Disposition Disposition (needs filled in before D/C Order can be placed): Home, Self Care Documented by User: Dr. Cj Lopez MD 08/12/21 14:32 Providers Date of Admission: 08/07/21 Reason For Visit: OSTEOMYELITIS Medications at Discharge Home Medications atorvastatin 80 mg PO QHS #30 tab 04/22/17 clopidogrel 75 mg PO DAILY #30 tab 04/22/17 multivitamin with folic acid [Thera] 1 tab PO DAILYCM #30 tab 04/22/17 nortriptyline 50 mg PO QHS #30 capsule 04/22/17 polyethylene glycol 3350 17 g PO DAILY #30 packet 04/22/17 Levemir FlexTouch U-100 Insuln 5 units SUBCUT DAILY 08/07/21 amlodipine 10 mg PO DAILY 08/07/21 aspirin 81 mg PO DAILY 08/07/21 docusate sodium 200 mg PO BID 08/07/21 furosemide 40 mg PO DAILY 08/07/21 gabapentin 30 mg PO BID 08/07/21 gabapentin 800 mg PO QHS 08/07/21 insulin aspart U-100 [Novolog Flexpen U-100 Insulin] 0 - 10 unit SUBCUT 4X/DAY 08/07/21 levothyroxine 200 mcg PO DAILY@0600 08/07/21 metoprolol tartrate 25 mg PO BID 08/07/21 pantoprazole 40 mg PO DAILY 08/07/21 potassium chloride 10 meq PO DAILY 08/07/21 ertapenem [Invanz] 1 g IV Q24H 38 Days #38 ea 08/12/21 vancomycin 1 g IV .qam 38 Days #38 ea 08/12/21 Hospital Course Operations None Summary of Care Provided Minutes Spent on Discharge: 35 Hospital Course: This patient was seen in conjunction with Jonh Etienne PA-C. I have independently interviewed and examined the patient and reviewed pertinent historical, laboratory, and other data. Please refer to Jonh Etienne PA-C's note for details of this patient's presentation, findings, and recommendations. I have reviewed Jonh Etienne PA-C's note and concur with documented findings. In brief, patient is a 71-year-old lady currently on admission for diabetic foot wound with osteomyelitis involving the right great toe. Patient underwent transmetatarsal amputation of the left foot on 08/08/2021. Cultures so far positive for staph aureus, Citrobacter as well as Raoutella Assessment: 1. Diabetic foot infection involving the left foot with osteomyelitis 2. Coronary artery disease with previous CABG and subsequent PCI 3. Dyslipidemia 4. Hypertension 5. Hypothyroidism 6. GERD 7. Obesity with BMI 34.9 8. DVT prophylaxis 9. Physical deconditioning Hospital course: As documented above ABG / Lab / Microbiology Data Result Diagrams: 08/12/21 06:52 08/12/21 06:52 Discharge Plan Admission Admit Date/Time: 08/07/21 17:01 Primary Reason for Your Visit: LLE wound Attending Provider: Cj Lopez Primary Care Provider: Elia Ceja Chi Consulting Providers: Lai Muhammad ; Cristal Schmitz Instructions Additional Instructions / Restrictions: -Change left foot dressing every days with Betadine wet-to-dry gauze to the transmetatarsal amputation site incision and iodoform packing to plantar foot ulcer site. Apply Aquacel Ag to the ankle and leg wound. Cover with gauze, abdominal pad and a well padded manner, Kerlix. Apply Alejandro wrap in a gentle manner. -It is okay to alternate between elevation and dangling to control swelling and rest pain. -Maintain a nonweightbearing status to the left lower extremity. It is okay to put the heel down for transfers if you are about to lose your balance. Use an assistive device and ask for help. Discharge Orders/Prescriptions Prescriptions: New ertapenem [Invanz] 1 gram recon soln 1 g IV Q24H 38 Days Qty: 38 RF: 0 vancomycin 1,000 mg recon soln 1 g IV .qam 38 Days Qty: 38 RF: 0 Continued atorvastatin 80 MG tablet 80 mg PO QHS Qty: 30 RF: 0 polyethylene glycol 3350 17 GM powder in packet 17 g PO DAILY Qty: 30 RF: 0 nortriptyline 25 MG capsule 50 mg PO QHS Qty: 30 RF: 0 clopidogrel 75 MG tablet 75 mg PO DAILY Qty: 30 RF: 0 multivitamin with folic acid [Thera] 1 TABLET tablet 1 tab PO DAILYCM Qty: 30 RF: 0 furosemide 40 mg Tablet 40 mg PO DAILY RF: 0 potassium chloride 10 mEq Capsule, Extended Release 10 meq PO DAILY RF: 0 amlodipine 10 mg Tablet 10 mg PO DAILY RF: 0 docusate sodium 100 mg Capsule 200 mg PO BID RF: 0 insulin aspart U-100 [Novolog Flexpen U-100 Insulin] 100 unit/mL (3 mL) Insulin Pen 0 - 10 unit SUBCUT 4X/DAY RF: 0 metoprolol tartrate 25 mg Tablet 25 mg PO BID RF: 0 aspirin 81 mg Capsule 81 mg PO DAILY RF: 0 gabapentin 600 MG tablet 30 mg PO BID RF: 0 pantoprazole 20 MG tablet,delayed release (DR/EC) 40 mg PO DAILY RF: 0 levothyroxine 150 MCG tablet 200 mcg PO DAILY@0600 RF: 0 gabapentin 300 MG capsule 800 mg PO QHS RF: 0 Levemir FlexTouch U-100 Insuln 100 UNITS/ML insulin pen 5 units subcut DAILY RF: 0 Referrals / Follow Up: Henry Aguilar MD [STAFF PHYSICIAN] - Within 2 Weeks Cristal Schmitz DPM [STAFF PHYSICIAN] - In 1 Week (Wound care center; [phone].) Lai Muhammad MD [STAFF PHYSICIAN] - Within 2 Weeks Elia Ceja Chi, MD [Primary Care Provider] - Within 2 Weeks Disposition Disposition (needs filled in before D/C Order can be placed): Home, Self Care Charges/Coding Visit Charges Inpatient E&M: 55021 Disch Hosp Hospital Course Consultations Consultations: Consultations 08/07/21 17:47 Consult: Infectious Disease Routine Consulting Provider: Lai Muhammad Reason for Consult: Osteo EMERGENT Consult: No Notified: Yes Date Notified: 08/07/21 Time Notified: 18:00 Method of Notification: Text 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
--- NOTE | 2021-08-12 14:41 | PHA.DC.MR ---
Pharmacy Service has performed discharge medication reconciliation for this patient. The patient's discharge medication list was reviewed for discrepancies and discrepancies were resolved. This RP spoke to patient regarding gabapentin dosing. Patient reports taking 300MG BID and 600MG QHS. This [facility] spoke to ZOHRA Borja and made updates to med list. SARA Castillo made aware an updated med list should be sent to TCU. Home Medications atorvastatin 80 mg PO QHS #30 tab 04/22/17 clopidogrel 75 mg PO DAILY #30 tab 04/22/17 multivitamin with folic acid [Thera] 1 tab PO DAILYCM #30 tab 04/22/17 nortriptyline 50 mg PO QHS #30 capsule 04/22/17 polyethylene glycol 3350 17 g PO DAILY #30 packet 04/22/17 Levemir FlexTouch U-100 Insuln 5 units SUBCUT DAILY 08/07/21 amlodipine 10 mg PO DAILY 08/07/21 aspirin 81 mg PO DAILY 08/07/21 docusate sodium 200 mg PO BID 08/07/21 furosemide 40 mg PO DAILY 08/07/21 gabapentin 300 mg PO BID 08/07/21 gabapentin 600 mg PO QHS 08/07/21 insulin aspart U-100 [Novolog Flexpen U-100 Insulin] 0 - 10 unit SUBCUT 4X/DAY 08/07/21 levothyroxine 200 mcg PO DAILY@0600 08/07/21 metoprolol tartrate 25 mg PO BID 08/07/21 pantoprazole 40 mg PO DAILY 08/07/21 potassium chloride 10 meq PO DAILY 08/07/21 ertapenem [Invanz] 1 g IV Q24H 38 Days #38 ea 08/12/21 vancomycin 1 g IV .qam 38 Days #38 ea 08/12/21
[2021-08-12 16:56] LABS: Bedside Glucose 125 mg/dL (70-110)
[2021-08-12 17:13] LABS: Vancomycin, Trough Level 23.7 ug/mL (5.0-15.0)
--- NOTE | 2021-08-12 23:18 | PN_ITS ---
Subjective Subjective Patient seen this afternoon for follow up on left foot. She is getting PICC today with plans to be discharged to TCU. She has no new complaints. Objective Data Objective Data Vital Signs: Vital Signs Temp Pulse Resp BP Pulse Ox 97.8 F 74 16 150/66 H 100 08/12/21 14:24 08/12/21 15:00 08/12/21 14:24 08/12/21 14:24 08/12/21 14:24 Oxygen Delivery Method Room Air Weight: 86.9 kg Body Mass Index (BMI) 34.4 Intake & Output: Intake and Output for Last 24 Hours 08/10/21 08/11/21 08/12/21 23:59 23:59 23:59 Intake Total 2522.5 / 2522.5 790 / 1190 910 / 910 Output Total 1650 / 1950 1650 / 2650 2650 / 2650 Balance 872.5 / 572.5 -860 / -1460 -1740 / -1740 Lab / Micro Data Result Diagrams: 08/12/21 06:52 08/12/21 06:52 Labs: Laboratory Results - last 24 hr 08/09/21 09:25: Crossmatch See Detail 08/11/21 23:35: POC Glucose 121 H 08/12/21 06:27: POC Glucose 92 08/12/21 06:52: WBC 8.1, RBC 3.39 L, Hgb 9.5 L, Hct 29.2 L, MCV 86.1, MCH 28.0, MCHC 32.5, RDW Std Deviation 43.7, RDW Coeff of Jenna 13.8, Plt Count 298, MPV 8.5 08/12/21 06:52: Sodium 138, Potassium 4.0, Chloride 107, Carbon Dioxide 20.0 L, Anion Gap 11, BUN 71 H, Creatinine 1.49 H, Estim Creat Clear Calc 26.13, Est GFR (MDRD) Af Amer 44 L, Est GFR (MDRD) Non-Af 37 L, BUN/Creatinine Ratio 47.7 H, Glucose 116 H, Calcium 8.5, Magnesium 2.0 08/12/21 11:22: POC Glucose 127 H 08/12/21 16:17: POC Glucose 125 H 08/12/21 16:31: Vancomycin Trough 23.7 H Micro: Microbiology 08/07/21 15:11 Blood Culture (Wb) - Anticubital Right Blood Culture - Final No growth in 5 days. 08/07/21 15:22 Wound - Left Foot Gram Stain - Final 08/07/21 15:22 Wound - Left Foot Wound Culture - Final Meth. resistant Staph. aureus Raoultella planticola Citrobacter freundii 08/07/21 15:22 Wound - Left Foot Anaerobic Culture - Final No anaerobic bacteria isolated. 08/08/21 15:24 Tissue - Left Foot Gram Stain - Final 08/08/21 15:24 Tissue - Left Foot Wound Culture - Final Meth. resistant Staph. aureus 08/08/21 15:24 Tissue - Left Foot Anaerobic Culture - Preliminary Checking for anaerobes, further studies to follow. 08/08/21 15:24 Tissue - Left Foot Gram Stain - Final 08/08/21 15:24 Tissue - Left Foot Wound Culture - Final Staphylococcus aureus Citrobacter freundii Raoultella planticola 08/08/21 15:24 Tissue - Left Foot Anaerobic Culture - Preliminary Checking for anaerobes, further studies to follow. 08/07/21 15:56 Blood Culture (Wb) - Right Wrist Blood Culture - Preliminary No growth in 48 hours. 08/08/21 08:40 Nasal Secretion SARS-CoV-2 Antigen (Rapid) - Final Physical Exam Const alert and oriented x3 General Appearance: cooperative HEENT normocephalic Extremity Extremity Narrative: No calf tenderness; negative Zheng sign bilateral. Transmetatarsal amputation left foot General Extremity: Negative for cyanosis Skin Skin Narrative: Left foot noted to have intact sutures distally at TMA site, with 3 removed from yesterday, there is ulceration plantar lateral foot which probes to distal amp site and there is noted to be some purulence present - less than yesterday - improved, there is no erythema, and no streaking noted, with ulceration with viable tissue, there is ulceration to the anterior ankle as well as the posterior distal leg down to subcutaneous tissue - the tissues are viable and granular with no evidence of infection. There is no bogginess or fluctuance noted on palpation to the left foot, ankle or leg. There is some localized edema to the left foot but no edema to the left leg. There is no evidence of acute ischemia to the foot or ankle bilateral, no open lesions or tissue break down on the right foot. Neuro Neuro Narrative: There is noted to be POP to the surgical site left foot. Psych cooperative and affect normal Assessment & Plan Assessment/Plan (1) Type 2 diabetes mellitus with diabetic foot infection: (2) Peripheral vascular disease: (3) Cellulitis of left lower limb: (4) Foot osteomyelitis, left: PLAN: Re-evaluation performed. Reviewed diagnotic data. She is afebrile and her vital signs are stable. White blood cell count normal today. The following work up and care recommendations were made: Dressing: Iodoform packing plantar lateral foot ulcer to lateral distal incision site, otherwise wet-to-dry gauze was to the incision amputation stump site. Secondary dressing consisting of adaptic, gauze abdominal pad Kerlix and lightly applied Alejandro wrap. I recommend changing daily. Offload: To maintain a nonweightbearing status left lower extremity Vascular: To follow-up with Dr. Aguilar inpatient versus outpatient. She has monophasic waveform and prior vascular surgery intervention. There is no e vidence of acute ischemia to the foot or ankle. Will consult Dr. Aguilar. Pain: Controlled with oral and IV pain medication Host factors: She is uncontrolled diabetes and known peripheral vascular disease amongst her other comorbidities. Medical management per hospitalist is greatly appreciated. Nutritional supplementation was ordered to optimize healing. Infection: She is on antibiotics- vancomycin, flagyl, and cefepime. Deep wound cultures were obtained including aerobic, anaerobic, and MRSA PCR. So far she has MRSA positive growth - also reviewed clearance fragment results and noted to be staph aureus growing so far - final pending. ID on consult and input is appreciated. Given her multiple comorbidities she still remains at risk for a below or above-knee amputation. I answered all the patient's questions. We will continue to follow her while in house Also recommended nursing facility placement for wound care, nonweightbearing left foot, and possible IV antibiotics (pending ID recommendations). Discussed with medicine team.
== END 2021-08-12 16:39 | disposition skilled nursing facility (03) | DRG 617 ==
LOC: ED 17:03 → PCU 17:20
PROVIDERS: Hospitalist; Podiatrist; Admitting Provider Family Medicine; Emergency Provider Emergency Medicine; PCP Family Medicine Geriatric Medicine; Visit Provider Internal Medicine
PROC: 0Y6N0Z9 Detachment at Left Foot, Partial 1st Ray, Open Approach (ICD-10-PCS; principal; 2021-08-08 13:45)
DX: E11.628 Type 2 diabetes mellitus with other skin complications (principal); M86.172 Other acute osteomyelitis, left ankle and foot; D62 Acute posthemorrhagic anemia; L03.116 Cellulitis of left lower limb; E11.65 Type 2 diabetes mellitus with hyperglycemia; E11.621 Type 2 diabetes mellitus with foot ulcer; L97.523 Non-pressure chronic ulcer of other part of left foot with necrosis of muscle; I25.10 Atherosclerotic heart disease of native coronary artery without angina pectoris; A49.02 Methicillin resistant Staphylococcus aureus infection, unspecified site; E03.9 Hypothyroidism, unspecified; E78.5 Hyperlipidemia, unspecified; K21.9 Gastro-esophageal reflux disease without esophagitis; I10 Essential (primary) hypertension; E66.9 Obesity, unspecified; E11.51 Type 2 diabetes mellitus with diabetic peripheral angiopathy without gangrene; E11.21 Type 2 diabetes mellitus with diabetic nephropathy; Z68.36 Body mass index [BMI] 36.0-36.9, adult; M60.9 Myositis, unspecified; E78.00 Pure hypercholesterolemia, unspecified; F32.A Depression, unspecified; G25.81 Restless legs syndrome; Z23 Encounter for immunization; Z95.1 Presence of aortocoronary bypass graft; Z95.5 Presence of coronary angioplasty implant and graft; Z79.4 Long term (current) use of insulin; Z79.890 Hormone replacement therapy; Z83.3 Family history of diabetes mellitus; Z90.710 Acquired absence of both cervix and uterus; I25.2 Old myocardial infarction; Z89.422 Acquired absence of other left toe(s); Z86.73 Personal history of transient ischemic attack (TIA), and cerebral infarction without residual deficits; Z28.3 Underimmunization status
CPT/HCPCS: 36415; 36569; 71045; 73610; 73620; 73630; 73718; 76000; 80048; 80202; 82962; 83036; 83605; 83735; 84443; 85025; 85027; 86140; 86850; 86900; 86901; 86920; 86922; 87015; 87040; 87070; 87075; 87077; 87102; 87116; 87176; 87186; 87205; 87206; 87426; 87640; 88304; 88305; 88311; 93005; 93922; 97110; 97162; 97166; 97802; 99251; 99284; G0008; J7030; J7050; P9016; 90686; A4216; G0463; J2405

== ENCOUNTER 2021-08-12 16:55 | Inpatient (IN) | payer MEDICARE, SELFPAY ==
[2021-08-12 17:03] VITALS: BMI 32.1
[2021-08-12 17:38] VITALS: BP 158/70; PULSE 74; RESP 16; TEMP 36; O2SAT 96
[2021-08-12 19:15] VITALS: RESP 18
--- NOTE | 2021-08-12 19:17 | NURSING ---
Pharmacy called at shift change for a flu vaccine order, stating this pt had received theirs on PCU yesterday, 08/11/21. Thanked him and reported to the RN.
--- NOTE | 2021-08-12 20:19 | PCM.HP.STD ---
HPI - General General Date of Admission: 08/12/21 HPI Narrative 08/07/2021 EBONIE WOLF, is a 71 Female who presents to [facility] Emergency Department with left foot wound. 08/08/2021 EKG normal sinus rhythm, left ventricular hypertrophy, inferior infarct, age undetermined, septal myocardial infarction, age undetermined. Left foot wound x 1 month, resides in [place]. In [place] for 1 week. Recent left 5th toe amputation for osteomyelitis. Left foot wound bleeding, oozing pus. X-ray left foot shows left foot osteomyelitis. Wound cultures sent. Vancomycin, Cefazolin IV given. 08/07/2021 Admit to Hospital. Vancomycin, Cefepime for left foot osteomyelitis. IV fluids for acute kidney injury. Consult podiatry, consult infectious disease. Hold aspirin, plavix to prepare for surgery. 08/08/2021 CRYSTAL doppler shows severe bilateral lower extremity PAOD. 08/08/2021 Feels better. MRI left foot shows multiple areas of osteomyelitis. 08/09/2021 Dr. Schmitz performed left transmetatarsal amputation. subcutanous excisional debridement left ankle condyle. 08/09/2021 Pain controlled. Hemoglobin 7.2, Transfuse. 08/10/2021 Vancomycin, Cefepime, Flagyl for left foot osteomyelitis. Cultures growing Staph aureus, gram negative rods. 08/11/2021 cultures growing s. aureus, citrobacter, raquotella. 08/11/2021 Dr. Muhammad recommended Vancomycin, Cefepime, Flagyl IV x 6 weeks via PICC line for left foot osteomyelitis. 08/12/2021 Admit to TCU with debility, here for rehabilitation, strengthening, half-way intravenous antibiotics, prior to discharge home. [facility] Medical History (Updated 08/12/21 @ 20:[address] Elia Ceja MD) Chest pain Chronic headaches Current use of insulin Depression Difficulty chewing Difficulty swallowing DVT (deep venous thrombosis) Dyspnea High cholesterol History of stress test Irregular heartbeat Myocardial infarction Paralysis Post-menopausal Renal disease Restless legs Sleep apnea Status post amputation of toe of left foot Stroke Thyroiditis Ulcer Home Medications Levemir FlexTouch U-100 Insuln 5 units SUBCUT DAILY 08/07/21 [History Last Taken Unknown] amlodipine 10 mg PO DAILY 08/07/21 [History Last Taken Unknown] aspirin 81 mg PO DAILY 08/07/21 [History Last Taken Unknown] docusate sodium 200 mg PO BID 08/07/21 [History Last Taken Unknown] furosemide 40 mg PO DAILY 08/07/21 [History Last Taken Unknown] gabapentin 300 mg PO BID 08/07/21 [History Last Taken Unknown] gabapentin 600 mg PO QHS 08/07/21 [History Last Taken Unknown] insulin aspart U-100 [Novolog Flexpen U-100 Insulin] 0 - 10 unit SUBCUT 4X/DAY 08/07/21 [History Last Taken Unknown] levothyroxine 200 mcg PO DAILY@0600 08/07/21 [History Last Taken Unknown] metoprolol tartrate 25 mg PO BID 08/07/21 [History Last Taken Unknown] pantoprazole 40 mg PO DAILY 08/07/21 [History Last Taken Unknown] potassium chloride 10 meq PO DAILY 08/07/21 [History Last Taken Unknown] atorvastatin 80 mg PO QHS 08/12/21 [History Last Taken Unknown] clopidogrel 75 mg PO DAILY 08/12/21 [History Last Taken Unknown] ertapenem [Invanz] 1 g IV Q24H 08/12/21 [History Last Taken Unknown] multivitamin with folic acid [Thera] 1 tab PO DAILYCM 08/12/21 [History Last Taken Unknown] nortriptyline 50 mg PO QHS 08/12/21 [History Last Taken Unknown] polyethylene glycol 3350 17 g PO DAILY 08/12/21 [History Last Taken Unknown] vancomycin 1 g IV .qam 08/12/21 [History Last Taken Unknown] Allergy/AdvReac Type Severity Reaction Status Date / Time baclofen AdvReac Other Verified 08/07/21 13:36 Family History Other Diabetes Heart disease Surgical History (Updated 08/12/21 @ 20:[address] Elia Ceja MD) History of heart artery stent S/P tubal ligation Status post arterial stent Status post coronary artery bypass graft Status post coronary artery stent placement Status post hysterectomy Status post transmetatarsal amputation of left foot Social History (Updated 08/12/21 @ 20:[address] Elia Ceja MD) household members: children Smoking Status: Never smoker ROS Constitutional Constitutional: Denies chills, fever(s) or weight gain ENT HEENT: Denies headache(s), nasal congestion or nasal discharge Cardiovascular Cardiovascular: Denies chest pain or palpitations Respiratory/Chest Respiratory/Chest: Denies cough, excessive phlegm production or shortness of breath with exertion Gastrointestinal Gastrointestinal: Denies abdominal pain, nausea or vomiting Genitourinary Genitourinary: Denies dysuria Musculoskeletal Musculoskeletal: Denies joint pain or joint swelling Integumentary Integumentary: Denies rash or wounds Neurologic Neurologic: Denies focal weakness, numbness or tingling Psychiatric Psychiatric: Reports auditory hallucinations; Denies anxiety, depression, homicidal ideation or suicidal ideation Vital Signs Vital Signs Vital Signs: 08/12/21 17:38 08/12/21 19:15 Temperature 96.8 F L Temperature Source Temporal Pulse Rate 74 Pulse Rhythm Regular Pulse Strength Normal (2+) Respiratory Rate 16 18 Respiratory Effort Normal Non-Labored Respiratory Depth Normal Respiratory Pattern Normal Blood Pressure 158/70 H Blood Pressure Mean 99 Blood Pressure Source Monitor Blood Pressure Position Supine Blood Pressure Location Right Leg Pulse Ox 96 Oxygen Delivery Method Room Air Room Air Weight Weight: 82.1 kg Body Mass Index (BMI) 32.1 Physical Exam Const alert and oriented x3 General Appearance: cooperative HEENT normocephalic Eyes PERRL and EOMs intact bilaterally Neck supple, no JVD and no carotid bruits Resp normal respiratory effort, normal air movement and clear to auscultation bilaterally Cardio regular rate and regular rhythm GI normal to inspection, nondistended, normoactive bowel sounds, non-tender and non-distended Extremity normal capillary refill Extremity Narrative: Right upper extremity PICC line. Left foot dressed. General Extremity: Negative for edema Skin no rashes or lesions noted General Skin Exam: no breakdown Neuro Neuro Narrative: Left hemiplegia. Psych affect normal Appearance: appropriate Assessment & Plan Assessment/Plan (1) Debility: (2) Foot osteomyelitis, left: (3) Postoperative anemia: (4) Acute kidney injury: (5) Peripheral arterial occlusive disease: (6) Left hemiplegia: (7) Stroke: (8) Coronary artery disease: (9) Hyperlipidemia: (10) Diabetic polyneuropathy: (11) Diabetes mellitus: (12) Hypertension: (13) Hypothyroidism: (14) Gastroesophageal reflux disease: (15) Hypokalemia: PLAN: 71 year old female with below past medical history hospitalized for left foot osteomyelitis, underwent left transmetatarsal amputation 08/08/[address] Schmitz, complicated by acute kidney injury, postoperative anemia requiring transfusion, admitted to TCU with debility, here for rehabilitation, strengthening, half-way intravenous antibiotics, prior to discharge home with daughter. Debility - PT/OT. Dysphagia - ST. Pain - Tylenol 1000mg Q6H prn pain (1-10). Bowel - Miralax 17gm daily, Senna/colace 1 tablet twice daily, Dulcolax 10mg daily PRN. Adult immunization - Administer prevnar 13, pneumovax 23, fluzone, covid19 vaccine as appropriate. DVT prophylaxis - Hold on dual antiplatelet therapy. Hypertension - Metoprolol 25mg twice daily, Amlodipine 10mg daily. Stroke with left hemiplegia - Aspirin 81mg daily, Plavix 75mg daily. Hyperlipidemia - Atorvastatin 80mg qhs. Coronary artery disease - Metoprolol 25mg twice daily, Plavix 75mg daily, Aspirin 81mg daily. Left foot osteomyelitis status post transmetatarsal amputation - Ertapenem 1gm iv Q24H, Vancomycin 1gm iv QAM x 6 weeks, consult Dr. Muhammad, consult Dr. Schmitz. Vlad 1 packet twice daily. Diabetic polyneuropathy - Gabapentin 300mg twice daily, 600mg QHS, Nortriptyline 50mg QHS. Diabetes Mellitus II - Lantus 5 units daily. Hypothyroidism - Levothyroxine 200mcg daily. GERD - Pantoprazole 40mg daily. Hypokalemia - KCL 10meq daily.
--- NOTE | 2021-08-12 21:20 | PCM.RX.CS ---
Consult Pharmacy has been consulted to manage selected antiobiotic: Vancomycin Type of Consult: Follow-up Suspected Infection: Osteomyelitis Weight used for dosin.1 kg Estimated Creatinine Clearance: 34.7 Goal Trough: 15-20 mcg/mL Pharmacy Plan for Drug Dosing: Vancomycin IV was ordered to be continued from PCU with stop date of 09/19/21. The same target range of 15-20 will be used. A 08/12/21 trough level had been drawn and the level was high at 23.7. Therefore the 08/12 dose will be held. A random vancomycin level will be drawn 08/13/21 @1630, and further dosing calculated from that result. Pharmacy Service will continue to monitor and adjust dosing as required. Follow-Up Labs: Trough Vancomycin - random Labs to be done on [date and time ordered]: 08/13/21 @1630 random
[2021-08-12] MEDS: Senna/Docusate Sodium 1 Tablet PO (21:49)
[2021-08-12] MEDS: Nortriptyline 25 MG Capsule 50 MG PO (21:49)
[2021-08-12 21:50] VITALS: BP 134/74; PULSE 82
[2021-08-12] MEDS: Atorvastatin Calcium 80 MG Tablet PO (21:50)
[2021-08-12] MEDS: Metoprolol Tartrate 25 MG Tablet PO (21:50)
[2021-08-12] MEDS: Gabapentin 600 MG Tablet PO (21:51)
[2021-08-12 23:11] LABS: Bedside Glucose 130 mg/dL (70-110)
[2021-08-13] MEDS: 0.9% Saline Lock 10 ML Syringe IV ×4 (05:05→21:44)
[2021-08-13] MEDS: Polyethylene Glycol 3350 17 GM PACKET PO (05:07)
[2021-08-13 05:09] VITALS: BP 155/65; PULSE 76
[2021-08-13] MEDS: Levothyroxine 100 MCG Tablet 200 MCG PO (05:09)
[2021-08-13] MEDS: Pantoprazole Sodium 40 MG Tablet PO (05:09)
[2021-08-13] MEDS: Furosemide 40 MG Tablet PO (05:09)
[2021-08-13] MEDS: Senna/Docusate Sodium 1 Tablet PO ×2 (05:09→17:41)
[2021-08-13] MEDS: Metoprolol Tartrate 25 MG Tablet PO ×2 (05:09→17:41)
[2021-08-13] MEDS: amLODIPine 10 MG Tablet PO (05:09)
[2021-08-13] MEDS: Clopidogrel Bisulfate 75 MG Tablet PO (05:09)
[2021-08-13] MEDS: Gabapentin 300 MG Capsule PO ×2 (05:09→14:18)
[2021-08-13 05:48] LABS: Absolute Lymphocyte Count 1.02 X10^3/uL (0.83-4.51); Absolute Neutrophil Count 6.7 X10^3/uL (2.0-7.7); Basophil# 0.03 X10^3/uL; Basophil% 0.3 % (0-1); Eosinophil# 0.36 X10^3/uL; Eosinophils% 4.1 % (0-5); Hematocrit 29.3 % (37-47); Hemoglobin 9.5 g/dL (12.0-15.0); Lymphocyte # 1.02 X10^3/ul (0.83-4.51); Lymphocyte % 11.6 % (19-41); Mean Corp Hgb Conc 32.4 g/dL (32-36); Mean Corpuscular Volume 86.4 fL (81-99); Mean Platelet Vol. 8.3 fl (6.2-12.0); Monocyte# 0.65 X10^3/uL; Monocyte% 7.4 % (0-10); NRBC Flagged by Analyzer 0 % (0-5); Neutrophil # 6.72 X10^3/uL (2.7-7.7); Neutrophil % 76.1 % (47-70); Platelet Count 310 K/mm3 (150-450); RBC Distribution Width SD 43.4 fl (35.1-43.9); Red Blood Count 3.39 M/mm3 (4.2-5.4); White Blood Count 8.8 K/mm3 (4.4-11.0)
[2021-08-13 06:25] LABS: Bedside Glucose 105 mg/dL (70-110)
[2021-08-13 06:26] LABS: Anion Gap 7 (5-15); BUN 63 mg/dL (7-18); BUN/Creat Ratio 43.8 RATIO (10-20); Calcium,Total 8.8 mg/dL (8.5-10.1); Chloride 108 mmol/L (98-107); Creatinine, Serum 1.44 mg/dL (0.55-1.02); EST Glomerular Filtration Rate 38 mL/min (>60); Est Glom Filt Rate - Afr Amer 46 mL/min (>60); Estimated Creatinine Clearance 29.64 ml/min; Glucose 115 mg/dL (74-106); Potassium 4.2 mmol/L (3.5-5.1); Sodium Level 137 mmol/L (136-145)
--- NOTE | 2021-08-13 06:50 | PCM.PROGNOTE ---
Subjective Subjective Patient was seen today in TCU, she is resting in bed with no new complaints. No fever. WBC normal. Objective Data Objective Data Vital Signs: Vital Signs Temp Pulse Resp BP Pulse Ox 96.8 F L 76 18 155/65 H 96 08/12/21 17:38 08/13/21 05:09 08/12/21 19:15 08/13/21 05:09 08/12/21 17:38 Oxygen Delivery Method Room Air Weight: 82.1 kg Body Mass Index (BMI) 32.1 Intake & Output: Intake and Output for Last 24 Hours 08/11/21 08/12/21 08/13/21 23:59 23:59 23:59 Intake Total 120 / 120 Balance 120 / 120 Lab / Micro Data Result Diagrams: 08/13/21 05:32 08/13/21 05:32 Labs: Laboratory Results - last 24 hr 08/12/21 23:05: POC Glucose 130 H 08/13/21 05:32: WBC 8.8, RBC 3.39 L, Hgb 9.5 L, Hct 29.3 L, MCV 86.4, MCH 28.0, MCHC 32.4, RDW Std Deviation 43.4, RDW Coeff of Jenna 14.0, Plt Count 310, MPV 8.3, Immature Gran % (Auto) 0.500, Neut % (Auto) 76.1 H, Lymph % (Auto) 11.6 L, [place] % (Auto) 7.4, Eos % (Auto) 4.1, Baso % (Auto) 0.3, Absolute Neuts (auto) 6.7, Absolute Lymphs (auto) 1.02, Nucleated RBC % 0 08/13/21 05:32: Sodium 137, Potassium 4.2, Chloride 108 H, Carbon Dioxide 22.0, Anion Gap 7, BUN 63 H, Creatinine 1.44 H, Estim Creat Clear Calc 29.64, Est GFR (MDRD) Af Amer 46 L, Est GFR (MDRD) Non-Af 38 L, BUN/Creatinine Ratio 43.8 H, Glucose 115 H, Calcium 8.8 08/13/21 06:04: POC Glucose 105 Physical Exam Const alert, oriented x3 and no apparent distress Extremity Extremity Narrative: Left foot TMA with lateral incision site open for drainage, also plantar lateral foot ulceration - probes down to muscle and bone, the tissue is viable, no necrosis, no maloder, no erythema, no fluctuance, there is noted to be some scant purulence - but this is improved and less than yesterday. There is anterior ankle ulcer down to subcutaneous tissue and also small posterior distal leg ulcers down to subcutaneous tissue with no evidence of infection to these ulcer sites, margins viable, no maloder. There is no crepitus, no visible abscess noted to the left foot, ankle or leg. Decreased sensation to the left foot c/w chronic peripheral neuropathy, no evidence of acute ischemia to the left foot or ankle, no evidence of charcot neuroarthropathy or compartment syndrome either. Left foot is normal temperature. Assessment & Plan Assessment/Plan (1) Peripheral arterial occlusive disease: (2) Diabetic polyneuropathy: (3) Left foot infection: (4) Osteomyelitis of great toe of left foot: (5) Ulcer of left foot due to type 2 diabetes mellitus: (6) Non-pressure chronic ulcer of other part of left foot with muscle involvement without evidence of necrosis: (7) Non-pressure chronic ulcer of left calf with fat layer exposed: (8) Non-pressure chronic ulcer of left ankle with fat layer exposed: PLAN: Re-evaluation performed. Reviewed diagnostic data. She is afebrile and her vital signs are stable. White blood cell count normal today. Dressing: Iodoform packing plantar lateral foot ulcer to lateral distal incision site, otherwise continue with gauze/aquacel Ag, adaptic, gauze abdominal pad Kerlix and lightly applied Alejandro wrap dressing changes. I recommend changing daily. Offload: To maintain a nonweightbearing status left lower extremity. Keep open ulcers offloaded at all times. Use pillows to pad posterior leg ulcer site. Vascular: To follow-up with Dr. Aguilar - She has monophasic waveform and prior vascular surgery intervention. There is no evidence of acute ischemia to the foot or ankle. Consult to Dr. Aguilar placed. Host factors: She is uncontrolled diabetes and known peripheral vascular disease amongst her other comorbidities. Medical management per hospitalist is greatly appreciated. Nutritional supplementation recommended to optimize healing. Infection: Reviewed culture results, there is MRSA. ID on consult and input is appreciated. Given her multiple comorbidities she still remains at risk for a below or above-knee amputation. I answered all the patient's questions. We will continue to follow her.
[2021-08-13] MEDS: Nystatin Powder 15gm Bottle 1 APPLIC TOPICAL ×2 (07:01→14:49)
--- NOTE | 2021-08-13 07:36 | WOUNDNOTE ---
wound photo: left anterior ankle
--- NOTE | 2021-08-13 07:37 | WOUNDNOTE ---
wound photo: left foot
--- NOTE | 2021-08-13 07:37 | WOUNDNOTE ---
wound photo: left plantar foot
--- NOTE | 2021-08-13 07:39 | WOUNDNOTE ---
wound photo: left posterolateral lower leg
[2021-08-13] MEDS: Aspirin 81 MG TAB.CHEW PO (07:56)
[2021-08-13] MEDS: Potassium Chloride Oral Tablet 10 MEQ PO (07:56)
--- NOTE | 2021-08-13 08:36 | CON.PCM_ITS ---
Assessment & Plan Assessment/Plan (1) PAD (peripheral artery disease): PLAN: 1. PAD. Patient with recurrent left lower extremity PAD. Previous stent 5 years ago with no follow-up. We will plan for a left leg angiogram next week. HPI Consult Data Date of Consult: 08/13/21 HPI Narrative HPI Narrative: EBONIE WOLF, is a 71 F who presents left foot gangrene. Since that she is undergone a TMA with dressings currently on place. Has some difficulty with healing of the wound. Vascular surgery consulted for evaluation of it. Patient had ABIs that were 0.38 and 0.5. Bilateral monophasic flow. Patient previously in early 2017 had a popliteal stent with me. No follow-up after that. Did have extensive tibial disease as well secondary to her diabetes since age 17. Vascular surgery consulted for evaluation and treatment of PAD. [facility] Medical History Chest pain Chronic headaches Current use of insulin Depression Difficulty chewing Difficulty swallowing DVT (deep venous thrombosis) Dyspnea High cholesterol History of stress test Irregular heartbeat Myocardial infarction Paralysis Post-menopausal Renal disease Restless legs Sleep apnea Status post amputation of toe of left foot Stroke Thyroiditis Ulcer Home Medications Levemir FlexTouch U-100 Insuln 5 units SUBCUT DAILY 08/07/21 [History Last Taken Unknown] amlodipine 10 mg PO DAILY 08/07/21 [History Last Taken Unknown] aspirin 81 mg PO DAILY 08/07/21 [History Last Taken Unknown] docusate sodium 200 mg PO BID 08/07/21 [History Last Taken Unknown] furosemide 40 mg PO DAILY 08/07/21 [History Last Taken Unknown] gabapentin 300 mg PO BID 08/07/21 [History Last Taken Unknown] gabapentin 600 mg PO QHS 08/07/21 [History Last Taken Unknown] insulin aspart U-100 [Novolog Flexpen U-100 Insulin] 0 - 10 unit SUBCUT 4X/DAY 08/07/21 [History Last Taken Unknown] levothyroxine 200 mcg PO DAILY@0600 08/07/21 [History Last Taken Unknown] metoprolol tartrate 25 mg PO BID 08/07/21 [History Last Taken Unknown] pantoprazole 40 mg PO DAILY 08/07/21 [History Last Taken Unknown] potassium chloride 10 meq PO DAILY 08/07/21 [History Last Taken Unknown] atorvastatin 80 mg PO QHS 08/12/21 [History Last Taken Unknown] clopidogrel 75 mg PO DAILY 08/12/21 [History Last Taken Unknown] ertapenem [Invanz] 1 g IV Q24H 08/12/21 [History Last Taken Unknown] multivitamin with folic acid [Thera] 1 tab PO DAILYCM 08/12/21 [History Last Taken Unknown] nortriptyline 50 mg PO QHS 08/12/21 [History Last Taken Unknown] polyethylene glycol 3350 17 g PO DAILY 08/12/21 [History Last Taken Unknown] vancomycin 1 g IV .qam 08/12/21 [History Last Taken Unknown] Allergy/AdvReac Type Severity Reaction Status Date / Time baclofen AdvReac Other Verified 08/07/21 13:36 Family History Other Diabetes Heart disease Surgical History History of heart artery stent S/P tubal ligation Status post arterial stent Status post coronary artery bypass graft Status post coronary artery stent placement Status post hysterectomy Status post transmetatarsal amputation of left foot Social History household members: children Smoking Status: Never smoker ROS ROS Narrative All negative what able to be obtained except for what is in the HPI. Physical Exam Narrative Patient awake alert oriented No apparent distress Afebrile vital signs stable HEENT: Normocephalic atraumatic Pupils equal reactive Moist mucous membrane Neck supple Chest nontender Carotid no bruit Lungs reported clear Heart appears regular Abdomen soft Extremities palpable radial pulses Right foot adequately perfused Left foot TMA in dressing Moves all extremities well x4 Left femoral pulse appears palpable, and incision and scar noted Lab / Micro Data Result Diagrams: 08/13/21 05:32 08/13/21 05:32 Labs: Laboratory Results - last 24 hr 08/12/21 23:05: POC Glucose 130 H 08/13/21 05:32: WBC 8.8, RBC 3.39 L, Hgb 9.5 L, Hct 29.3 L, MCV 86.4, MCH 28.0, MCHC 32.4, RDW Std Deviation 43.4, RDW Coeff of Jenna 14.0, Plt Count 310, MPV 8.3, Immature Gran % (Auto) 0.500, Neut % (Auto) 76.1 H, Lymph % (Auto) 11.6 L, [place] % (Auto) 7.4, Eos % (Auto) 4.1, Baso % (Auto) 0.3, Absolute Neuts (auto) 6.7, Absolute Lymphs (auto) 1.02, Nucleated RBC % 0 08/13/21 05:32: Sodium 137, Potassium 4.2, Chloride 108 H, Carbon Dioxide 22.0, Anion Gap 7, BUN 63 H, Creatinine 1.44 H, Estim Creat Clear Calc 29.64, Est GFR (MDRD) Af Amer 46 L, Est GFR (MDRD) Non-Af 38 L, BUN/Creatinine Ratio 43.8 H, Glucose 115 H, Calcium 8.8 08/13/21 06:04: POC Glucose 105
--- NOTE | 2021-08-13 08:46 | NURSING ---
therapy reported pt coughing with liquids this AM, speech eval in for pt.
--- NOTE | 2021-08-13 10:53 | PCM.PN.RX ---
Progress Note - Pharmacy Subjective: TCU Admission Objective: Allergies baclofen Adverse Reaction (Verified 08/07/21 13:36) Other confusion Current Medications Generic Name Dose Route Start Last Admin Trade Name Karlene PRN Reason Stop Dose Admin Acetaminophen 1,000 mg 08/12/21 20:43 Acetaminophen 500 Mg Tablet PO Q6H PRN PRN Pain Score 1-10 Amlodipine Besylate 10 mg 08/13/21 06:00 08/13/21 05:09 Amlodipine 10 Mg Tablet PO 10 mg DAILY JEFFRY Administration Aspirin 81 mg 08/13/21 08:00 08/13/21 07:56 Aspirin 81 Mg Tab.Chew PO 81 mg BREAKFAST JEFFRY Administration Atorvastatin Calcium 80 mg 08/12/21 22:00 08/12/21 21:50 Atorvastatin Calcium 80 Mg Tablet PO 80 mg QHS JEFFRY Administration Bisacodyl 10 mg 08/12/21 20:43 Bisacodyl 5 Mg Tablet PO DAILY PRN Constipation Clopidogrel Bisulfate 75 mg 08/13/21 06:00 08/13/21 05:09 Clopidogrel Bisulfate 75 Mg Tablet PO 75 mg DAILY JEFFRY Administration Furosemide 40 mg 08/13/21 06:00 08/13/21 05:09 Furosemide 40 Mg Tablet PO 40 mg DAILY JEFFRY Administration Gabapentin 600 mg 08/12/21 22:00 08/12/21 21:51 Gabapentin 600 Mg Tablet PO 600 mg QHS JEFFRY Administration Gabapentin 300 mg 08/13/21 06:00 08/13/21 05:09 Gabapentin 300 Mg Capsule PO 300 mg 0600,1400 JEFFRY Administration Heparin Sodium (Beef Lung) 50 units 08/12/21 20:33 Heparin Pf Lock 10 Units/Ml 50 Units/5 Ml Syringe IV UD PRN PICC Line Heparin Flush Sodium Chloride 250 mls @ 15 mls/hr 08/12/21 19:37 08/13/21 10:41 IV 15 mls/hr .[id number] PRN Administration Saline Flush Sodium Chloride 250 mls @ 15 mls/hr 08/12/21 19:37 IV .[id number] PRN Additional IVPB Infusion Ertapenem 1 gm/ Sodium 50 mls @ 100 mls/hr 08/13/21 10:00 08/13/21 10:41 Chloride IV 100 mls/hr Q24 JEFFRY Administration Insulin Glargine 5 units 08/13/21 06:00 08/13/21 06:58 Insulin Glargine 100 Units/Ml Pen SC 5 u DAILY JEFFRY Administration Levothyroxine Sodium 200 mcg 08/13/21 06:00 08/13/21 05:09 Levothyroxine 100 Mcg Tablet PO 200 mcg DAILY@0600 JEFFRY Administration Metoprolol Tartrate 25 mg 08/12/21 18:00 08/13/21 05:09 Metoprolol Tartrate 25 Mg Tablet PO 25 mg BID JEFFRY Administration Nortriptyline HCl 50 mg 08/12/21 22:00 08/12/21 21:49 Nortriptyline 25 Mg Capsule PO 50 mg QHS JEFFRY Administration Nutritional Formula 1 packet 08/13/21 08:00 08/13/21 07:56 Nutritional Supplement (Vlad) Packet PO 1 packet BIDCM JEFFRY Administration Nystatin 1 applic 08/13/21 06:00 08/13/21 07:01 Nystatin Powder 15gm Bottle TOPICAL 1 applic BID JEFFRY Administration Protocol Pantoprazole Sodium 40 mg 08/13/21 06:00 08/13/21 05:09 Pantoprazole Sodium 40 Mg Tablet PO 40 mg DAILY JEFFRY Administration Polyethylene Glycol 17 gm 08/13/21 06:00 08/13/21 05:07 Polyethylene Glycol 3350 17 Gm Packet PO 17 gm DAILY JEFFRY Administration Potassium Chloride 10 meq 08/13/21 08:00 08/13/21 07:56 Potassium Chloride Oral Tablet 10 Meq PO 10 meq BREAKFAST JEFFRY Administration Senna/Docusate Sodium 1 tablet 08/12/21 21:00 08/13/21 05:09 Senna/Docusate Sodium 1 Tablet PO 1 tablet BID JEFFRY Administration Sodium Chloride 10 - 40 ml 08/12/21 20:33 0.9 % Nacl (Sterile) Posiflush 10 Ml IV UD PRN Port access or dressing change Sodium Chloride 10 - 40 ml 08/12/21 20:33 08/13/21 10:42 0.9% Saline Lock 10 Ml Syringe IV 20 ml UD PRN Administration Open End PICC Flush Tuberculin PPD 0.1 ml 08/20/21 10:00 Tuberculin,Purif.Prot.Deriv. 50 Tu/Ml Vial ID 08/20/21 10:01 X1 ONE Problem List (Last Reviewed 08/13/21 @ 08:[address] Henry Aguilar MD) PAD (peripheral artery disease) (Acute) Non-pressure chronic ulcer of left ankle with fat layer exposed (Chronic) Non-pressure chronic ulcer of left calf with fat layer exposed (Chronic) Non-pressure chronic ulcer of other part of left foot with muscle involvement without evidence of necrosis (Acute) Hypokalemia (Acute) Gastroesophageal reflux disease (Acute) Hypothyroidism (Acute) Hypertension (Chronic) Diabetes mellitus (Acute) Diabetic polyneuropathy (Acute) Hyperlipidemia (Acute) Coronary artery disease (Acute) Stroke (Acute) Left hemiplegia (Acute) Peripheral arterial occlusive disease (Acute) Acute kidney injury (Acute) Postoperative anemia (Acute) Foot osteomyelitis, left (Acute) Debility (Acute) Left foot infection (Chronic) Osteomyelitis of great toe of left foot (Acute) Ulcer of left foot due to type 2 diabetes mellitus (Acute) Vital Signs Temp Pulse Resp BP Pulse Ox 96.8 F L 76 18 155/65 H 96 08/12/21 17:38 08/13/21 05:09 08/12/21 19:15 08/13/21 05:09 08/12/21 17:38 Oxygen Delivery Method Room Air Weight: 82.1 kg Body Mass Index (BMI) 32.1 Sodium 137 mmol/L (136-145) 08/13/21 05:32 Potassium 4.2 mmol/L (3.5-5.1) 08/13/21 05:32 Chloride 108 mmol/L (98-107) H 08/13/21 05:32 Carbon Dioxide 22.0 mmol/L (21.0-32.0) 08/13/21 05:32 Anion Gap 7 (5-15) 08/13/21 05:32 BUN 63 mg/dL (7-18) H 08/13/21 05:32 Creatinine 1.44 mg/dL (0.55-1.02) H 08/13/21 05:32 Est GFR (MDRD) Af Amer 46 mL/min (>60) L 08/13/21 05:32 Est GFR (MDRD) Non-Af 38 mL/min (>60) L 08/13/21 05:32 BUN/Creatinine Ratio 43.8 RATIO (10-20) H 08/13/21 05:32 Glucose 115 mg/dL (74-106) H 08/13/21 05:32 Assessment/Plan: 1. Pain: acetaminophen 1000mg PO Q6H PRN pain 1-10. Please continue to monitor for increased pain and PRN usage. *2. Left foot osteomyelitis s/p transmetatarsal amputation: ertapenem 1gm IV Q24H and vancomycin (dosed by pharmacy) thru 09/19/21. Please consider adding a stop date to ertapenem. Thanks. Please continue to monitor for S/S of infection, renal function, and diarrhea. 3. CAD/hypertension: metoprolol tartrate 25mg PO BID, amlodipine 10mg PO daily, aspirin 81mg PO breakfast and clopidogrel 75mg PO daily. Please continue to monitor HR (last 76), BP (last 155/65), S/S of bleeding, hemoglobin (last 9.5g/dL) and swelling. *4. Hyperlipidemia: atorvastatin 80mg PO QHS. Please consider ordering a lipid panel (last panel from 03/2017) if clinically appropriate. Thanks. Please continue to monitor for muscle pain. 5. Diabetes mellitus II: insulin glargine 5units SC daily. Please continue to monitor hemoglobin A1c (last 6.9% 08/07/21), glucose (last 143 mg/dL), and S/S of hypoglycemia. 6. Hypothyroidism: levothyroxine 200mcg PO daily. Please continue to monitor TSH (last 08/07/21) and S/S of hypo/hyperthyroidism. 7. GERD: pantoprazole 40mg PO daily. Please continue to monitor for S/S of GERD and diarrhea. 8. Hypokalemia: potassium chloride 10mEq PO daily. Please continue to monitor potassium levels (last 4.2mmol/L). Psychotropic Medications: *1. Diabetic polyneuropathy: gabapentin 300mg PO BID/600mg PO QHS and nortriptyline 50mg PO QHS. Please consider GDR of nortriptyline by 02/2022 if clinically appropriate (nortriptyline is on the BEERs list for anticholinergic side effects, drowsiness and orthostatic hypotension.) Thanks. *Unnecessary Medications: furosemide 40mg PO daily. I did not see a documented indication for this medication. Please consider D/C or adding indication as clinically appropriate. Thanks. Bowel Regimen: Miralax 17gm PO daily, senna/docusate 1T PO BID and bisacodyl 10mg PO daily PRN constipation. Please continue to monitor for constipation and PRN usage. Date of Note:: 08/13/21
[2021-08-13 11:00] LABS: Bedside Glucose 143 mg/dL (70-110)
[2021-08-13] MEDS: Tuberculin,Purif.prot.deriv. 50 TU/ML Vial 0.1 ML ID (11:57)
[2021-08-13 14:59] VITALS: BP 159/77; PULSE 75; RESP 16; O2SAT 100
--- NOTE | 2021-08-13 15:04 | CASEMGMT ---
Social Work SW did attempt to speak w/pt, she is very drowsy today and not easily arousable. Pt did give permission for SW to call daughter. MOLST form and BIMS deferred today due to pt's mental status. SW called daughter Jailyn, met w/her outside of the room. Jailyn explains pt was living here until 2016, then moved to [place] and was living w/her . They were while in [place]. Pt had two strokes and a heart attack when in [place] and had been living w/her son and daughter in law from that time until now, she just moved back to [place] on July 30. She states she does not know that pt was getting the best care in [place], states her sister in law was home w/the pt and her brother works. As per Jailyn, pt is living w/Jailyn and her other daughter and they have been taking care of her since she has returned. She states that the goal is ultimately to get pt home. When pt lived here in 2016, as per Jailyn, pt did have PASSPORT services. She would be interested in pt having PASSPORT again. She spoke w/SW in PCU about plan from [facility], as pt needs to be on IV antibiotics for 6 weeks, and pt does not have secondary insurance. Daughter states understanding that [facility] does not take Medicaid. She completed the Medicaid application, and she is hopeful pt can go from [facility] to [facility]. SW explained we can see if [facility] would be willing to take pt. Daughter also asked about pt completing POA forms for healthcare. SW explained that once pt's mental status improves, we can speak w/pt about completing the documents. SARA explained that this would be a good idea, as without the documents the decisions would be up to her , even though they are , unless he states he does not want to make decisions. SARA explained if he did not want to make decisions it would be up to the three children to make decisions together. SARA explained we will speak w/pt about it, and explained it is up to the pt who she would make her POA. Daughter states understanding. SW explained will follow up w/application for alf care assessment, will fax Medicaid application, speak w/pt about POA when she is able, and will speak to [facility] when appropriate regarding referral. SARA also gave daughter number to Tess at [facility]. SW did then complete the terminal manager care assessment form and faxed it to [facility], and also faxed the completed Medicaid application to [facility]. SARA will continue to follow. HANY Frederick
[2021-08-13] MEDS: Acetaminophen 500 MG Tablet 1000 MG PO (15:49)
--- NOTE | 2021-08-13 15:55 | PCM.PN.ID ---
Physical Exam Narrative Feeling ok, no fever, no n/v/d. Const alert General Appearance: cooperative Resp normal air movement and clear to auscultation bilaterally Cardio regular rate and regular rhythm GI normal to inspection, nondistended, normoactive bowel sounds Skin no rashes or lesions noted ID ID: Route of nutrition/ use of supplements: [] Nutritional Intake: [] IV Site: [] Ryan Catheter: [] Assessment & Plan Assessment/Plan (1) Acute osteomyelitis of left foot: PLAN: Now s/p TMA 08/08/[address] Schmitz. Wound cx and surg cx so far with MRSA, raoultella, citrobacter. Clearance cx with some staph aureus. On vanc/cefepime/flagyl. On raoultella is R to cefepime. Cont vanc/erta, stop date 09/19/21, weekly labs. Got 1st dose covid shot here. Will follow,
[2021-08-13 16:11] LABS: Bedside Glucose 125 mg/dL (70-110)
[2021-08-13 17:15] LABS: Vancomycin, Random Level 18.6 ug/mL (0.0-15.0)
[2021-08-13 17:41] VITALS: PULSE 100
--- NOTE | 2021-08-13 18:48 | PCM.RX.CS ---
Consult Pharmacy has been consulted to manage selected antiobiotic: Vancomycin Type of Consult: Follow-up Labs: Sodium 137 mmol/L (136-145) 08/13/21 05:32 Potassium 4.2 mmol/L (3.5-5.1) 08/13/21 05:32 Chloride 108 mmol/L (98-107) H 08/13/21 05:32 Carbon Dioxide 22.0 mmol/L (21.0-32.0) 08/13/21 05:32 Anion Gap 7 (5-15) 08/13/21 05:32 BUN 63 mg/dL (7-18) H 08/13/21 05:32 Creatinine 1.44 mg/dL (0.55-1.02) H 08/13/21 05:32 Est GFR (MDRD) Af Amer 46 mL/min (>60) L 08/13/21 05:32 Est GFR (MDRD) Non-Af 38 mL/min (>60) L 08/13/21 05:32 BUN/Creatinine Ratio 43.8 RATIO (10-20) H 08/13/21 05:32 Glucose 115 mg/dL (74-106) H 08/13/21 05:32 Random Vancomycin 18.6 ug/mL (0.0-15.0) H 08/13/21 16:33 Goal Trough: 15-20 mcg/mL Pharmacy Plan for Drug Dosing: VANCOMYCIN LEVEL RECEIVED NOTE: PT TO BE ON VANCO THROUGH 09/19/21 Current Vancomycin Dose: ON HOLD- last dose 08/11/21 @1629 (1g) Number of Doses Received: ON HOLD Vancomycin Level: 18.6 Hours Since Last Dose: 48h Renal Function: 1.44 Renal Function Trend: improved from previous labs Lab/Micro: NNL Vancomycin Plan/Comments: Patient now within therapeutic range of 15-20. Will resume vancomycin. Will start the patient on 750mg IV Q24h to start this evening. Pending Level: 08/15/21 @1999, prior to 3rd total dose per protocol. Pharmacy Service will continue to monitor and adjust dosing as required.
[2021-08-13 21:16] LABS: Bedside Glucose 159 mg/dL (70-110)
[2021-08-13] MEDS: Atorvastatin Calcium 80 MG Tablet PO (21:44)
[2021-08-13] MEDS: Gabapentin 600 MG Tablet PO (21:44)
[2021-08-13] MEDS: Nortriptyline 25 MG Capsule 50 MG PO (21:44)
[2021-08-14] MEDS: Polyethylene Glycol 3350 17 GM PACKET PO (04:55)
[2021-08-14] MEDS: amLODIPine 10 MG Tablet PO (04:56)
[2021-08-14] MEDS: Pantoprazole Sodium 40 MG Tablet PO (04:56)
[2021-08-14] MEDS: Clopidogrel Bisulfate 75 MG Tablet PO (04:56)
[2021-08-14] MEDS: Gabapentin 300 MG Capsule PO ×2 (04:56→13:44)
[2021-08-14] MEDS: Furosemide 40 MG Tablet PO (04:56)
[2021-08-14] MEDS: Senna/Docusate Sodium 1 Tablet PO ×2 (04:56→17:21)
[2021-08-14 04:59] VITALS: BP 175/61; PULSE 65
[2021-08-14] MEDS: Levothyroxine 100 MCG Tablet 200 MCG PO (04:59)
[2021-08-14] MEDS: Metoprolol Tartrate 25 MG Tablet PO ×2 (04:59→17:21)
[2021-08-14] MEDS: Nystatin Powder 15gm Bottle 1 APPLIC TOPICAL ×2 (05:03→17:21)
[2021-08-14 06:21] LABS: Bedside Glucose 109 mg/dL (70-110)
[2021-08-14] MEDS: Aspirin 81 MG TAB.CHEW PO (08:11)
[2021-08-14] MEDS: Potassium Chloride Oral Tablet 10 MEQ PO (08:11)
[2021-08-14] MEDS: 0.9% Saline Lock 10 ML Syringe IV (10:36)
[2021-08-14 11:05] LABS: Bedside Glucose 165 mg/dL (70-110)
[2021-08-14 12:34] VITALS: BP 135/65; PULSE 78; RESP 18; TEMP 36.3; O2SAT 96
[2021-08-14] MEDS: Acetaminophen 500 MG Tablet 1000 MG PO (13:43)
--- NOTE | 2021-08-14 15:07 | CHAPLAIN ---
Type of Pastoral Visit _x__ Initial Visit ___ Follow-up Visit ___ On-call Visit ___ General Patient Visit ___ Spiritual Assessment ___ Family Conference ___ Bereavement ___ Rapid Response ___ Code Blue ___ Other (describe below) Pastoral Care Referral From _x__ Patient ___ Family ___ Nurse ___ Physician ___ Correctional Officer Captain ___ Scoop Machine Operator ___ Other (describe below) Sacrament/Intervention _x__ Active listening ___ Anointing ___ Scientologist ___ Bereavement ___ Communion ___ Nydia exploration ___ _x__ Life review _x__ Prayer ___ Reconciliation ___ Sacrament of Sick _x__ Supportive presence ___ Wedding ___ Other (describe below) Pastoral Comments patient is welcoming of visit but has some difficulty with clarity in answering questions; pt does know that she is in [place] but mentions that she came from [place] and even [place] before that; pt knows that she has a daughter here but not sure how or why she is in [place]; pt is open to future visits and received a prayer today
[2021-08-14 16:36] LABS: Bedside Glucose 149 mg/dL (70-110)
[2021-08-14 17:21] VITALS: PULSE 71
[2021-08-14] MEDS: Gabapentin 600 MG Tablet PO (20:58)
[2021-08-14] MEDS: Atorvastatin Calcium 80 MG Tablet PO (20:59)
[2021-08-14] MEDS: Nortriptyline 25 MG Capsule 50 MG PO (20:59)
[2021-08-14 21:36] LABS: Bedside Glucose 148 mg/dL (70-110)
[2021-08-15] MEDS: Acetaminophen 500 MG Tablet 1000 MG PO ×2 (00:48→12:40)
[2021-08-15 06:20] LABS: Bedside Glucose 95 mg/dL (70-110)
[2021-08-15 06:21] VITALS: BP 148/66; PULSE 71; RESP 16; TEMP 36.8; O2SAT 97
[2021-08-15 06:23] VITALS: BP 148/66; PULSE 71
[2021-08-15] MEDS: Polyethylene Glycol 3350 17 GM PACKET PO (06:23)
[2021-08-15] MEDS: Furosemide 40 MG Tablet PO (06:23)
[2021-08-15] MEDS: Metoprolol Tartrate 25 MG Tablet PO ×2 (06:23→18:15)
[2021-08-15] MEDS: Levothyroxine 100 MCG Tablet 200 MCG PO (06:24)
[2021-08-15] MEDS: amLODIPine 10 MG Tablet PO (06:24)
[2021-08-15] MEDS: Senna/Docusate Sodium 1 Tablet PO ×2 (06:24→18:15)
[2021-08-15] MEDS: Clopidogrel Bisulfate 75 MG Tablet PO (06:24)
[2021-08-15] MEDS: Gabapentin 300 MG Capsule PO ×2 (06:24→14:18)
[2021-08-15] MEDS: Pantoprazole Sodium 40 MG Tablet PO (06:25)
[2021-08-15] MEDS: Nystatin Powder 15gm Bottle 1 APPLIC TOPICAL ×2 (06:25→18:16)
[2021-08-15] MEDS: Aspirin 81 MG TAB.CHEW PO (08:50)
[2021-08-15] MEDS: Potassium Chloride Oral Tablet 10 MEQ PO (08:50)
[2021-08-15 10:55] LABS: Bedside Glucose 139 mg/dL (70-110)
[2021-08-15] MEDS: 0.9% Saline Lock 10 ML Syringe IV (11:09)
--- NOTE | 2021-08-15 12:54 | PCM.PROGNOTE ---
Subjective Subjective This 71-year-old pleasant female was seen bedside postoperative day #7 left transmetatarsal amputation and ulcer debridement. She is seen in the transitional care unit. She denies fever, chill, nausea, vomiting, calf pain. She relates her pain is mild to her surgical limb. She just completed physical therapy training session. Objective Data Objective Data Vital Signs: Vital Signs Temp Pulse Resp BP Pulse Ox 98.3 F 71 16 148/66 H 97 08/15/21 06:21 08/15/21 06:23 08/15/21 06:21 08/15/21 06:23 08/15/21 06:21 Oxygen Flow Rate (L/min) 2 Oxygen Delivery Method Room Air Weight: 82.1 kg Body Mass Index (BMI) 32.1 Intake & Output: Intake and Output for Last 24 Hours 08/13/21 08/14/21 08/15/21 23:59 23:59 23:59 Intake Total 822.25 / 822.25 1024 / 1024 600 / 600 Output Total 2100 / 2100 1250 / 1250 Balance 822.25 / 822.25 -1076 / -1076 -650 / -650 Lab / Micro Data Result Diagrams: 08/13/21 05:32 08/13/21 05:32 Labs: Laboratory Results - last 24 hr 08/14/21 16:29: POC Glucose 149 H 08/14/21 21:33: POC Glucose 148 H 08/15/21 06:09: POC Glucose 95 08/15/21 10:51: POC Glucose 139 H Physical Exam Const alert, oriented x3 and no apparent distress Extremity Extremity Narrative: Left foot TMA with lateral incision site open for drainage, also plantar lateral foot ulceration - probes down to muscle and bone, the tissue is viable, no necrosis, no maloder, no erythema, no fluctuance. There was no purulence noted on expression today. There is anterior ankle ulcer down to subcutaneous tissue and also small posterior distal leg ulcers down to subcutaneous tissue with no evidence of infection to these ulcer sites, margins viable, no malodor. There is no crepitus, no visible abscess noted to the left foot, ankle or leg. Decreased sensation to the left foot c/w chronic peripheral neuropathy, no evidence of acute ischemia to the left foot or ankle, no evidence of charcot neuroarthropathy or compartment syndrome either. Left foot is normal temperature. Assessment & Plan Assessment/Plan (1) Peripheral arterial occlusive disease: (2) Diabetic polyneuropathy: (3) Left foot infection: (4) Osteomyelitis of great toe of left foot: (5) Ulcer of left foot due to type 2 diabetes mellitus: (6) Non-pressure chronic ulcer of other part of left foot with muscle involvement without evidence of necrosis: (7) Non-pressure chronic ulcer of left calf with fat layer exposed: (8) Non-pressure chronic ulcer of left ankle with fat layer exposed: PLAN: Re-evaluation performed. Reviewed diagnostic data. She is afebrile and her vital signs are stable. White blood cell count normal today. Dressing: Iodoform packing plantar lateral foot ulcer to lateral distal incision site, otherwise continue with gauze/aquacel Ag, adaptic, gauze abdominal pad Kerlix and lightly applied Alejandro wrap dressing changes. I recommend changing daily. Offload: To maintain a nonweightbearing status left lower extremity. Keep open ulcers offloaded at all times. Use pillows to pad posterior leg ulcer site. Vascular: To follow-up with Dr. Aguilar - She has monophasic waveform and prior vascular surgery intervention. There is no evidence of acute ischemia to the foot or ankle. Vascular surgery is on consult and there is a plan for interventional angio next week. To continue Plavix. Host factors: She is uncontrolled diabetes and known peripheral vascular disease amongst her other comorbidities. Medical management per hospitalist is greatly appreciated. Nutritional supplementation recommended to optimize healing. Infection: Reviewed culture results, there is MRSA and bactrioides. ID on consult and input is appreciated. She is on ertapenem and vancomycin. Given her multiple comorbidities she still remains at risk for a below or above-knee amputation. I answered all the patient's questions. We will continue to follow her. Please call if questions. Cristal Schmitz DPM, [facility] [phone]
[2021-08-15 15:25] VITALS: BP 122/65; PULSE 69; RESP 20; TEMP 36.1; O2SAT 99
[2021-08-15 16:10] LABS: Bedside Glucose 137 mg/dL (70-110)
[2021-08-15 18:15] VITALS: BP 122/65; PULSE 69
[2021-08-15] MEDS: Bisacodyl 5 MG Tablet 10 MG PO (18:17)
[2021-08-15 20:46] LABS: Vancomycin, Trough Level 22.4 ug/mL (5.0-15.0)
[2021-08-15 21:16] LABS: Bedside Glucose 195 mg/dL (70-110)
[2021-08-15] MEDS: Gabapentin 600 MG Tablet PO (21:40)
[2021-08-15] MEDS: Nortriptyline 25 MG Capsule 50 MG PO (21:40)
[2021-08-15] MEDS: Atorvastatin Calcium 80 MG Tablet PO (21:40)
[2021-08-15] MEDS: Citalopram 10 MG Tablet PO (21:47)
[2021-08-15 22:05] VITALS: PULSE 80; RESP 12
--- NOTE | 2021-08-16 01:02 | PCM.RX.CS ---
Consult Pharmacy has been consulted to manage selected antiobiotic: Vancomycin Type of Consult: Follow-up Suspected Infection: Skin/Soft tissue Labs: Sodium 137 mmol/L (136-145) 08/13/21 05:32 Potassium 4.2 mmol/L (3.5-5.1) 08/13/21 05:32 Chloride 108 mmol/L (98-107) H 08/13/21 05:32 Carbon Dioxide 22.0 mmol/L (21.0-32.0) 08/13/21 05:32 Anion Gap 7 (5-15) 08/13/21 05:32 BUN 63 mg/dL (7-18) H 08/13/21 05:32 Creatinine 1.44 mg/dL (0.55-1.02) H 08/13/21 05:32 Est GFR (MDRD) Af Amer 46 mL/min (>60) L 08/13/21 05:32 Est GFR (MDRD) Non-Af 38 mL/min (>60) L 08/13/21 05:32 BUN/Creatinine Ratio 43.8 RATIO (10-20) H 08/13/21 05:32 Glucose 115 mg/dL (74-106) H 08/13/21 05:32 Vancomycin Trough 22.4 ug/mL (5.0-15.0) H 08/15/21 19:42 Random Vancomycin 18.6 ug/mL (0.0-15.0) H 08/13/21 16:33 Goal Trough: 15-20 mcg/mL Pharmacy Plan for Drug Dosing: Pharmacy Service will continue to monitor and adjust dosing as required. TROUGH 22.4 AT 23 HOURS. HOLD CURRENT DOSE AND DRAW RANDOM TROUGH I 12 HOURS AND REDOSE Follow-Up Labs: Trough Vancomycin Labs to be done on [date and time ordered]: 08/16 @ 6946
--- NOTE | 2021-08-16 02:33 | NURSING ---
Pt vanco trough done and was 22.4. Spoke with pharmacist, evening dose held and trough to be repeated sat morning.
[2021-08-16] MEDS: Levothyroxine 100 MCG Tablet 200 MCG PO (06:09)
[2021-08-16] MEDS: amLODIPine 10 MG Tablet PO (06:09)
[2021-08-16] MEDS: Senna/Docusate Sodium 1 Tablet PO (06:09)
[2021-08-16] MEDS: Citalopram 10 MG Tablet PO (06:09)
[2021-08-16 06:10] VITALS: BP 155/74; PULSE 74
[2021-08-16] MEDS: Gabapentin 300 MG Capsule PO ×2 (06:10→13:24)
[2021-08-16] MEDS: Metoprolol Tartrate 25 MG Tablet PO ×2 (06:10→17:40)
[2021-08-16] MEDS: Clopidogrel Bisulfate 75 MG Tablet PO (06:10)
[2021-08-16] MEDS: Furosemide 40 MG Tablet PO (06:10)
[2021-08-16] MEDS: Polyethylene Glycol 3350 17 GM PACKET PO (06:10)
[2021-08-16] MEDS: Nystatin Powder 15gm Bottle 1 APPLIC TOPICAL ×2 (06:10→17:47)
[2021-08-16] MEDS: Pantoprazole Sodium 40 MG Tablet PO (06:10)
[2021-08-16 06:35] LABS: Bedside Glucose 138 mg/dL (70-110)
[2021-08-16] MEDS: Aspirin 81 MG TAB.CHEW PO (08:39)
[2021-08-16] MEDS: Potassium Chloride Oral Tablet 10 MEQ PO (08:39)
[2021-08-16] MEDS: 0.9% Saline Lock 10 ML Syringe IV (09:10)
[2021-08-16 09:29] LABS: Vancomycin, Random Level 19.3 ug/mL (0.0-15.0)
[2021-08-16 09:48] VITALS: RESP 14
--- NOTE | 2021-08-16 12:07 | PCM.RX.CS ---
Consult Pharmacy has been consulted to manage selected antiobiotic: Vancomycin Type of Consult: Follow-up Labs: Sodium 137 mmol/L (136-145) 08/13/21 05:32 Potassium 4.2 mmol/L (3.5-5.1) 08/13/21 05:32 Chloride 108 mmol/L (98-107) H 08/13/21 05:32 Carbon Dioxide 22.0 mmol/L (21.0-32.0) 08/13/21 05:32 Anion Gap 7 (5-15) 08/13/21 05:32 BUN 63 mg/dL (7-18) H 08/13/21 05:32 Creatinine 1.44 mg/dL (0.55-1.02) H 08/13/21 05:32 Est GFR (MDRD) Af Amer 46 mL/min (>60) L 08/13/21 05:32 Est GFR (MDRD) Non-Af 38 mL/min (>60) L 08/13/21 05:32 BUN/Creatinine Ratio 43.8 RATIO (10-20) H 08/13/21 05:32 Glucose 115 mg/dL (74-106) H 08/13/21 05:32 Vancomycin Trough 22.4 ug/mL (5.0-15.0) H 08/15/21 19:42 Random Vancomycin 19.3 ug/mL (0.0-15.0) H 08/16/21 07:30 Goal Trough: 15-20 mcg/mL Pharmacy Plan for Drug Dosing: pts random level resulted at 19.3 which was a 34.5 hour level. recommend holding dose until 08/17/21 to allow the level to drop to ~16. re initiate Vancomycin at 500mg q24h. trough before the 3rd dose. Pharmacy Service will continue to monitor and adjust dosing as required. Follow-Up Labs: Trough Vancomycin - 08/19/21 at 0730
[2021-08-16 13:54] VITALS: BP 145/70; PULSE 69; RESP 15; TEMP 36.4; O2SAT 97
[2021-08-16] MEDS: Acetaminophen 500 MG Tablet 1000 MG PO ×2 (14:09→20:30)
[2021-08-16 17:21] LABS: Bedside Glucose 143 mg/dL (70-110)
[2021-08-16 17:40] VITALS: BP 119/72; PULSE 69
[2021-08-16] MEDS: Atorvastatin Calcium 80 MG Tablet PO (20:30)
[2021-08-16] MEDS: Nortriptyline 25 MG Capsule 50 MG PO (20:30)
[2021-08-16] MEDS: Gabapentin 600 MG Tablet PO (20:30)
[2021-08-16 21:11] LABS: Bedside Glucose 182 mg/dL (70-110)
--- NOTE | 2021-08-16 22:40 | NURSING ---
Went in to assess pain again and see if she now wanted Oxy, pt sleeping in bed, not awakened at this time. Will continue to monitor.
[2021-08-17 06:16] LABS: Bedside Glucose 103 mg/dL (70-110)
[2021-08-17 06:45] VITALS: BP 154/55; PULSE 65; RESP 16; TEMP 36.1; O2SAT 98
[2021-08-17] MEDS: Polyethylene Glycol 3350 17 GM PACKET PO (06:47)
[2021-08-17] MEDS: Senna/Docusate Sodium 1 Tablet PO ×2 (06:48→17:22)
[2021-08-17] MEDS: amLODIPine 10 MG Tablet PO (06:48)
[2021-08-17] MEDS: Pantoprazole Sodium 40 MG Tablet PO (06:48)
[2021-08-17] MEDS: Clopidogrel Bisulfate 75 MG Tablet PO (06:48)
[2021-08-17 06:49] VITALS: BP 154/55; PULSE 65
[2021-08-17] MEDS: Gabapentin 300 MG Capsule PO ×2 (06:49→13:22)
[2021-08-17] MEDS: Metoprolol Tartrate 25 MG Tablet PO ×2 (06:49→17:22)
[2021-08-17] MEDS: Furosemide 40 MG Tablet PO (06:49)
[2021-08-17] MEDS: Levothyroxine 100 MCG Tablet 200 MCG PO (06:49)
[2021-08-17] MEDS: Citalopram 10 MG Tablet PO (06:50)
[2021-08-17] MEDS: Vancomycin IV 500 MG/100 ML BAG 100 MG IV (08:46)
[2021-08-17] MEDS: Potassium Chloride Oral Tablet 10 MEQ PO (08:46)
[2021-08-17] MEDS: Aspirin 81 MG TAB.CHEW PO (08:46)
[2021-08-17] MEDS: 0.9 % NaCl (Sterile) Posiflush 10 mL IV (08:46)
[2021-08-17] MEDS: Nystatin Powder 15gm Bottle 1 APPLIC TOPICAL ×2 (08:47→17:22)
--- NOTE | 2021-08-17 09:17 | PN_ITS ---
Subjective Subjective This 71-year-old pleasant female was seen bedside s/p left transmetatarsal amputation and ulcer debridement. She was seen in the transitional care unit. She denies fever, chill, nausea, vomiting, shortness of breath, chest pain, or calf pain. She relates her pain is mild to her surgical limb. Objective Data Objective Data Vital Signs: Vital Signs Temp Pulse Resp BP Pulse Ox 97.0 F L 65 16 154/55 H 98 08/17/21 06:45 08/17/21 06:49 08/17/21 06:45 08/17/21 06:49 08/17/21 06:45 Oxygen Flow Rate (L/min) 2 Oxygen Delivery Method Room Air Weight: 82.1 kg Body Mass Index (BMI) 32.1 Intake & Output: Intake and Output for Last 24 Hours 08/15/21 08/16/21 08/17/21 23:59 23:59 23:59 Intake Total 650 / 650 1140 / 1140 120 / 120 Output Total 1700 / 1700 2650 / 2650 1400 / 1400 Balance -1050 / -1050 -1510 / -1510 -1280 / -1280 Lab / Micro Data Result Diagrams: 08/13/21 05:32 08/13/21 05:32 Labs: Laboratory Results - last 24 hr 08/16/21 07:30: Random Vancomycin 19.3 H 08/16/21 17:17: POC Glucose 143 H 08/16/21 21:05: POC Glucose 182 H 08/17/21 06:07: POC Glucose 103 Physical Exam Const alert, oriented x3 and no apparent distress Extremity Extremity Narrative: Left foot TMA with lateral incision site open for drainage, also plantar lateral foot ulceration. the tissue is viable, no necrosis, no maloder, no erythema, no fluctuance. There was no purulence noted on expression today. There is anterior ankle ulcer down to subcutaneous tissue and also small posterior distal leg ulcers down to subcutaneous tissue with no evidence of infection to these ulcer sites, margins viable, no malodor. There is no crepitus, no visible abscess noted to the left foot, ankle or leg. Decreased sensation to the left foot c/w chronic peripheral neuropathy, no evidence of acute ischemia to the left foot or ankle, no evidence of charcot neuroarthropathy or compartment syndrome either. Left foot is normal temperature. Assessment & Plan Assessment/Plan (1) Peripheral arterial occlusive disease: (2) Diabetic polyneuropathy: (3) Left foot infection: (4) Osteomyelitis of great toe of left foot: (5) Ulcer of left foot due to type 2 diabetes mellitus: (6) Non-pressure chronic ulcer of other part of left foot with muscle involvement without evidence of necrosis: (7) Non-pressure chronic ulcer of left calf with fat layer exposed: (8) Non-pressure chronic ulcer of left ankle with fat layer exposed: PLAN: Re-evaluation performed. Reviewed diagnostic data. She is afebrile and her vital signs are stable. White blood cell count normal today. Dressing: Iodoform packing plantar lateral foot ulcer to lateral distal incision site, otherwise continue with gauze/aquacel Ag, adaptic, gauze abdominal pad Kerlix and lightly applied Alejandro wrap dressing changes. I recommend changing daily. Offload: To maintain a nonweightbearing status left lower extremity. Keep open ulcers offloaded at all times. Vascular: To follow-up with Dr. Aguilar - She has monophasic waveform and prior vascular surgery intervention. There is no evidence of acute ischemia to the foot or ankle. Vascular surgery is on consult and there is a plan for interventional angio next week. To continue Plavix. Her prior intervention in [place] and [place] is noted. Host factors: She has uncontrolled diabetes and known peripheral vascular disease amongst her other comorbidities. Medical management per hospitalist is greatly appreciated. Nutritional supplementation recommended to optimize healing. Infection: Reviewed culture results from the surgical clearance fragment, there is MRSA and bacteroides fragilis. The histopathological evaluation of the chandler arance fragment was however negative for acute osteomyelitis. ID on consult and input is appreciated. She is on ertapenem and vancomycin. Given her multiple comorbidities she still remains at risk for a below or above-knee amputation. I answered all the patient's questions. We will continue to follow her. Please call if questions. Cristal Schmitz DPM, [facility] [phone]
[2021-08-17 11:06] LABS: Bedside Glucose 196 mg/dL (70-110)
[2021-08-17 12:37] VITALS: BP 124/64; PULSE 68; RESP 16; TEMP 36.1; O2SAT 98
[2021-08-17 16:46] LABS: Bedside Glucose 118 mg/dL (70-110)
[2021-08-17 17:22] VITALS: BP 151/71; PULSE 69
[2021-08-17] MEDS: Menthol/Lanolin/Calamine/Znox 113 GM Tube 1 APPLIC TOPICAL (17:22)
[2021-08-17] MEDS: Gabapentin 600 MG Tablet PO (21:12)
[2021-08-17] MEDS: Atorvastatin Calcium 80 MG Tablet PO (21:12)
[2021-08-17] MEDS: Acetaminophen 500 MG Tablet 1000 MG PO (21:13)
[2021-08-17] MEDS: Nortriptyline 25 MG Capsule 50 MG PO (21:14)
[2021-08-17 21:15] LABS: Bedside Glucose 216 mg/dL (70-110)
[2021-08-18] MEDS: Menthol/Lanolin/Calamine/Znox 113 GM Tube 1 APPLIC TOPICAL ×2 (06:17→17:30)
[2021-08-18] MEDS: 0.9 % NaCl (Sterile) Posiflush 10 mL IV ×2 (06:17→07:52)
[2021-08-18] MEDS: Furosemide 40 MG Tablet PO (06:18)
[2021-08-18] MEDS: Citalopram 10 MG Tablet PO (06:18)
[2021-08-18] MEDS: Gabapentin 300 MG Capsule PO ×2 (06:18→13:54)
[2021-08-18] MEDS: amLODIPine 10 MG Tablet PO (06:18)
[2021-08-18] MEDS: Polyethylene Glycol 3350 17 GM PACKET PO (06:18)
[2021-08-18 06:19] VITALS: BP 144/58; PULSE 67
[2021-08-18] MEDS: Metoprolol Tartrate 25 MG Tablet PO ×2 (06:19→17:29)
[2021-08-18] MEDS: Clopidogrel Bisulfate 75 MG Tablet PO (06:19)
[2021-08-18] MEDS: Pantoprazole Sodium 40 MG Tablet PO (06:19)
[2021-08-18] MEDS: Nystatin Powder 15gm Bottle 1 APPLIC TOPICAL ×2 (06:19→17:30)
[2021-08-18] MEDS: Senna/Docusate Sodium 1 Tablet PO ×2 (06:19→17:29)
[2021-08-18] MEDS: Levothyroxine 100 MCG Tablet 200 MCG PO (06:19)
[2021-08-18 06:20] LABS: Bedside Glucose 93 mg/dL (70-110)
[2021-08-18] MEDS: Aspirin 81 MG TAB.CHEW PO (07:50)
[2021-08-18] MEDS: Potassium Chloride Oral Tablet 10 MEQ PO (07:50)
[2021-08-18] MEDS: Vancomycin IV 500 MG/100 ML BAG 100 MG IV (07:51)
[2021-08-18 10:00] VITALS: PULSE 65; RESP 18; O2SAT 97
[2021-08-18 10:51] LABS: Bedside Glucose 153 mg/dL (70-110)
--- NOTE | 2021-08-18 14:08 | WOUNDNOTE ---
wound photo: left anterior ankle
--- NOTE | 2021-08-18 14:09 | WOUNDNOTE ---
wound photo: left foot
--- NOTE | 2021-08-18 14:09 | WOUNDNOTE ---
wound photo: left plantar foot'
--- NOTE | 2021-08-18 14:10 | WOUNDNOTE ---
left posterior lower leg
--- NOTE | 2021-08-18 14:11 | WOUNDNOTE ---
wound photo: right heel
[2021-08-18] MEDS: oxyCODONE 5 MG Tablet PO ×2 (14:29→20:03)
[2021-08-18 15:51] LABS: Bedside Glucose 203 mg/dL (70-110)
[2021-08-18 16:00] VITALS: BP 144/68; PULSE 75; RESP 18; TEMP 36.9; O2SAT 97
[2021-08-18 17:29] VITALS: PULSE 75
[2021-08-18] MEDS: Gabapentin 600 MG Tablet PO (21:15)
[2021-08-18] MEDS: Nortriptyline 25 MG Capsule 50 MG PO (21:15)
[2021-08-18] MEDS: Atorvastatin Calcium 80 MG Tablet PO (21:15)
[2021-08-18 21:16] LABS: Bedside Glucose 195 mg/dL (70-110)
[2021-08-19 06:15] LABS: Bedside Glucose 114 mg/dL (70-110)
[2021-08-19] MEDS: 0.9 % NaCl (Sterile) Posiflush 10 mL IV ×3 (06:35→22:39)
[2021-08-19 06:38] VITALS: BP 148/64; PULSE 63
[2021-08-19] MEDS: Clopidogrel Bisulfate 75 MG Tablet PO (06:38)
[2021-08-19] MEDS: Citalopram 10 MG Tablet PO (06:38)
[2021-08-19] MEDS: amLODIPine 10 MG Tablet PO (06:38)
[2021-08-19] MEDS: Metoprolol Tartrate 25 MG Tablet PO ×2 (06:38→17:42)
[2021-08-19] MEDS: Gabapentin 300 MG Capsule PO ×2 (06:38→13:41)
[2021-08-19] MEDS: Levothyroxine 100 MCG Tablet 200 MCG PO (06:38)
[2021-08-19] MEDS: Furosemide 40 MG Tablet PO (06:38)
[2021-08-19] MEDS: Pantoprazole Sodium 40 MG Tablet PO (06:38)
[2021-08-19] MEDS: Polyethylene Glycol 3350 17 GM PACKET PO (06:38)
[2021-08-19] MEDS: Nystatin Powder 15gm Bottle 1 APPLIC TOPICAL ×2 (06:41→21:10)
[2021-08-19] MEDS: Menthol/Lanolin/Calamine/Znox 113 GM Tube 1 APPLIC TOPICAL ×2 (06:41→17:42)
[2021-08-19] MEDS: Senna/Docusate Sodium 1 Tablet PO ×2 (07:11→17:42)
[2021-08-19 08:23] LABS: Vancomycin, Trough Level 17.6 ug/mL (5.0-15.0)
[2021-08-19] MEDS: Vancomycin IV 500 MG/100 ML BAG 100 MG IV (08:39)
[2021-08-19] MEDS: Aspirin 81 MG TAB.CHEW PO (08:39)
[2021-08-19] MEDS: Potassium Chloride Oral Tablet 10 MEQ PO (08:39)
--- NOTE | 2021-08-19 08:53 | NURSING ---
LINER WORKER CALLED AND REPORTED PT WILL BE HAVING ANGIOGRAM DONE AT 0730 08/20, PT NEEDS TO BE DOWN TO LINER WORKER AT 0630 VIA BED. NPO AFTER MIDNIGHT, GIVE BP MEDS ONLY AND HOLD WATER PILLS.
--- NOTE | 2021-08-19 09:19 | PCM.RX.CS ---
Consult Pharmacy has been consulted to manage selected antiobiotic: Vancomycin Type of Consult: Follow-up Suspected Infection: Osteomyelitis Labs: Sodium 137 mmol/L (136-145) 08/13/21 05:32 Potassium 4.2 mmol/L (3.5-5.1) 08/13/21 05:32 Chloride 108 mmol/L (98-107) H 08/13/21 05:32 Carbon Dioxide 22.0 mmol/L (21.0-32.0) 08/13/21 05:32 Anion Gap 7 (5-15) 08/13/21 05:32 BUN 63 mg/dL (7-18) H 08/13/21 05:32 Creatinine 1.44 mg/dL (0.55-1.02) H 08/13/21 05:32 Est GFR (MDRD) Af Amer 46 mL/min (>60) L 08/13/21 05:32 Est GFR (MDRD) Non-Af 38 mL/min (>60) L 08/13/21 05:32 BUN/Creatinine Ratio 43.8 RATIO (10-20) H 08/13/21 05:32 Glucose 115 mg/dL (74-106) H 08/13/21 05:32 Vancomycin Trough 17.6 ug/mL (5.0-15.0) H 08/19/21 07:24 Random Vancomycin 19.3 ug/mL (0.0-15.0) H 08/16/21 07:30 Goal Trough: 15-20 mcg/mL Pharmacy Plan for Drug Dosing: VANCOMYCIN LEVEL RECEIVED Current Vancomycin Dose: 500mg q24 (0800) Number of Doses Received: x2 of current 500mg dose Vancomycin Level: 17.6 Hours Since Last Dose: ~10 hours Renal Function: nnl Renal Function Trend: Lab/Micro: Vancomycin Plan/Comments: recommend continuing current dose of 500mg q24h at 0800. will repeat trough in 3 more doses Pending Level: 08/31/21 at 0730 Pharmacy Service will continue to monitor and adjust dosing as required. Follow-Up Labs: Trough Vancomycin - 08/21/21 at 0730
--- NOTE | 2021-08-19 09:34 | CASEMGMT ---
Social Work PHQ-9 (score 6) and BIMS (score10) completed this day. Pt very drowsy at present, SW woke pt multiple times to complete assessments. SW inquired w/pt if she would like to complete LW/POA forms today, pt would like to complete them another day. SW will continue to follow and assist with these documents when pt is able. HANY Frederick
[2021-08-19 10:46] LABS: Bedside Glucose 149 mg/dL (70-110)
--- NOTE | 2021-08-19 13:43 | NURSING ---
wound nurse changed dressing to LT foot. boot on WIB.
[2021-08-19 13:50] VITALS: BP 145/67; PULSE 67; RESP 14; TEMP 36; O2SAT 96
[2021-08-19 16:51] LABS: Bedside Glucose 118 mg/dL (70-110)
[2021-08-19 17:42] VITALS: PULSE 67
[2021-08-19 20:45] VITALS: PULSE 72; RESP 16; O2SAT 97
[2021-08-19] MEDS: Gabapentin 600 MG Tablet PO (21:10)
[2021-08-19] MEDS: Atorvastatin Calcium 80 MG Tablet PO (21:10)
[2021-08-19] MEDS: Nortriptyline 25 MG Capsule 50 MG PO (21:10)
[2021-08-19 21:30] LABS: Bedside Glucose 188 mg/dL (70-110)
--- NOTE | 2021-08-20 00:33 | NURSING ---
Patient NPO as of midnight. Pt. aware and verbalized understanding
[2021-08-20] MEDS: Menthol/Lanolin/Calamine/Znox 113 GM Tube 1 APPLIC TOPICAL ×2 (05:07→18:39)
[2021-08-20 05:08] VITALS: BP 169/58; PULSE 67
[2021-08-20] MEDS: Metoprolol Tartrate 25 MG Tablet PO ×2 (05:08→18:38)
[2021-08-20] MEDS: amLODIPine 10 MG Tablet PO (05:09)
[2021-08-20 06:16] LABS: Bedside Glucose 93 mg/dL (70-110)
--- NOTE | 2021-08-20 06:35 | NURSING ---
Patient off floor, staff transported patient to laboratory equipment cleaner for scheduled angiogram.
--- NOTE | 2021-08-20 06:37 | WOUNDNOTE ---
Was asked by nursing to assess bilateral buttocks. This nurse had assessed buttocks on 08/19/21 when placing patient on the bedpan. patient has some sheared areas to bilateral buttocks. some areas bleeding at times. some of this may be caused from patient being placed on and off the bedpan. patient already has calmoseptine ordered. plan to continue this. a Mepilex dressing is most likely not able to be placed to these areas d/t location and incontinence at times. will continue to monitor.
--- NOTE | 2021-08-20 12:45 | NURSING ---
Pt returned from Angiogram. Has pressure dressing to right groin okay to be removed after 48hrs. No other orders were entered at this time.
[2021-08-20] MEDS: Levothyroxine 100 MCG Tablet 200 MCG PO (13:00)
[2021-08-20] MEDS: Furosemide 40 MG Tablet PO (13:00)
[2021-08-20] MEDS: Pantoprazole Sodium 40 MG Tablet PO (13:00)
[2021-08-20] MEDS: Potassium Chloride Oral Tablet 10 MEQ PO (13:00)
[2021-08-20] MEDS: Citalopram 10 MG Tablet PO (13:00)
[2021-08-20] MEDS: Aspirin 81 MG TAB.CHEW PO (13:00)
[2021-08-20] MEDS: Clopidogrel Bisulfate 75 MG Tablet PO (13:00)
[2021-08-20] MEDS: Polyethylene Glycol 3350 17 GM PACKET PO (13:01)
[2021-08-20] MEDS: Gabapentin 300 MG Capsule PO (13:20)
[2021-08-20] MEDS: Vancomycin IV 500 MG/100 ML BAG 100 MG IV (13:58)
[2021-08-20 15:04] VITALS: BP 161/69; PULSE 67; RESP 18; TEMP 36.7; O2SAT 97
--- NOTE | 2021-08-20 15:21 | CASEMGMT ---
Social Work Plan of care meeting held with pt dgt present (pt currently at procedure). Pt is receiving PT/OT and participating well with therapy. Pt dgt updated that pt has no secondary insurance and on 09/01 (day 21) pt will need to cover copay or transfer to a medicaid accepting facility. Pt dgt states she is understanding of this and pt has applied for Medicaid. SNF list with quality and resource use data provided and dgt states preferred provider is [facility] as pt will not be able to return home at day 21 nor cover copay amount. Pt dgt would like advance directives addressed with pt and SW reassured dgt this will be addressed when pt is less lethargic. Phone call to Shakira at [facility] and verbal referral made. Shakira states they will likely have beds avaliable in the skilled unit on 09/01. Referral will be faxed closer to the date of discharge. Continue with treatment plan at this time. CAPRI Spears
[2021-08-20 16:35] LABS: Bedside Glucose 146 mg/dL (70-110)
[2021-08-20 17:05] LABS: Absolute Lymphocyte Count 1.26 X10^3/uL (0.83-4.51); Absolute Neutrophil Count 7.1 X10^3/uL (2.0-7.7); Basophil# 0.04 X10^3/uL; Basophil% 0.4 % (0-1); Eosinophil# 0.35 X10^3/uL; Eosinophils% 3.8 % (0-5); Hematocrit 28.5 % (37-47); Hemoglobin 9.3 g/dL (12.0-15.0); Lymphocyte # 1.26 X10^3/ul (0.83-4.51); Lymphocyte % 13.6 % (19-41); Mean Corp Hgb Conc 32.6 g/dL (32-36); Mean Corpuscular Hgb 28.2 pg (27.0-32.0); Mean Corpuscular Volume 86.4 fL (81-99); Mean Platelet Vol. 8.8 fl (6.2-12.0); Monocyte# 0.48 X10^3/uL; Monocyte% 5.2 % (0-10); NRBC Flagged by Analyzer 0 % (0-5); Neutrophil # 7.07 X10^3/uL (2.7-7.7); Neutrophil % 76.5 % (47-70); Platelet Count 337 K/mm3 (150-450); RBC Distribution Width CV 13.5 % (11.6-14.6); RBC Distribution Width SD 42.1 fl (35.1-43.9); White Blood Count 9.3 K/mm3 (4.4-11.0)
[2021-08-20 17:18] LABS: Anion Gap 5 (5-15); BUN 89 mg/dL (7-18); BUN/Creat Ratio 57.1 RATIO (10-20); Calcium,Total 8.9 mg/dL (8.5-10.1); Chloride 105 mmol/L (98-107); Creatinine, Serum 1.56 mg/dL (0.55-1.02); EST Glomerular Filtration Rate 35 mL/min (>60); Est Glom Filt Rate - Afr Amer 42 mL/min (>60); Estimated Creatinine Clearance 27.36 ml/min; Glucose 176 mg/dL (74-106); Potassium 4.6 mmol/L (3.5-5.1); Sodium Level 137 mmol/L (136-145)
[2021-08-20] MEDS: Senna/Docusate Sodium 1 Tablet PO (18:33)
[2021-08-20 18:38] VITALS: BP 171/67; PULSE 71
[2021-08-20] MEDS: Nystatin Powder 15gm Bottle 1 APPLIC TOPICAL (18:39)
[2021-08-20] MEDS: Tuberculin,Purif.prot.deriv. 50 TU/ML Vial 0.1 ML ID (20:21)
[2021-08-20] MEDS: Atorvastatin Calcium 80 MG Tablet PO (20:24)
[2021-08-20] MEDS: Gabapentin 600 MG Tablet PO (20:24)
[2021-08-20] MEDS: Nortriptyline 25 MG Capsule 50 MG PO (20:24)
[2021-08-20] MEDS: 0.9 % NaCl (Sterile) Posiflush 10 mL IV (20:26)
[2021-08-20 21:25] LABS: Bedside Glucose 221 mg/dL (70-110)
[2021-08-21] MEDS: oxyCODONE 5 MG Tablet PO ×3 (00:43→21:47)
[2021-08-21 06:16] LABS: Bedside Glucose 103 mg/dL (70-110)
--- NOTE | 2021-08-21 06:47 | PCM.PROGNOTE ---
Subjective Subjective This 71-year-old pleasant female was seen bedside s/p left transmetatarsal amputation and ulcer debridement. She was seen in the transitional care unit. She denies fever, chill, nausea, vomiting, shortness of breath, chest pain. She relates her pain is mild to her surgical limb and consistent with prior days. She had vascular surgery intervention performed yesterday morning. Objective Data Objective Data Vital Signs: Vital Signs Temp Pulse Resp BP Pulse Ox 98.0 F 71 18 171/67 H 97 08/20/21 15:04 08/20/21 18:38 08/20/21 15:04 08/20/21 18:38 08/20/21 15:04 Oxygen Flow Rate (L/min) 2 Oxygen Delivery Method Room Air Weight: 83.149 kg Body Mass Index (BMI) 32.1 Intake & Output: Intake and Output for Last 24 Hours 08/19/21 08/20/21 08/21/21 23:59 23:59 23:59 Intake Total 630 / 630 390 / 390 Output Total 1150 / 1150 1250 / 1250 650 / 650 Balance -520 / -520 -860 / -860 -650 / -650 Lab / Micro Data Result Diagrams: 08/20/21 16:45 08/20/21 16:45 Labs: Laboratory Results - last 24 hr 08/20/21 16:17: POC Glucose 146 H 08/20/21 16:45: WBC 9.3, RBC 3.30 L, Hgb 9.3 L, Hct 28.5 L, MCV 86.4, MCH 28.2, MCHC 32.6, RDW Std Deviation 42.1, RDW Coeff of Jenna 13.5, Plt Count 337, MPV 8.8, Immature Gran % (Auto) 0.500, Neut % (Auto) 76.5 H, Lymph % (Auto) 13.6 L, Barry % (Auto) 5.2, Eos % (Auto) 3.8, Baso % (Auto) 0.4, Absolute Neuts (auto) 7.1, Absolute Lymphs (auto) 1.26, Nucleated RBC % 0 08/20/21 16:45: Sodium 137, Potassium 4.6, Chloride 105, Carbon Dioxide 27.0, Anion Gap 5, BUN 89 H, Creatinine 1.56 H, Estim Creat Clear Calc 27.36, Est GFR (MDRD) Af Amer 42 L, Est GFR (MDRD) Non-Af 35 L, BUN/Creatinine Ratio 57.1 H, Glucose 176 H, Calcium 8.9 08/20/21 21:14: POC Glucose 221 H 08/21/21 06:06: POC Glucose 103 Physical Exam Const alert, oriented x3 and no apparent distress Extremity Extremity Narrative: Left foot TMA with lateral incision site open for drainage, also plantar lateral foot ulceration. sutures remain intact. the tissue is viable, no necrosis, no maloder, no erythema, no fluctuance. There was no purulence noted on expression today. There is anterior ankle ulcer down to subcutaneous tissue (decreased size) and also small posterior distal leg ulcer (decreased size) down to subcutaneous tissue with no evidence of infection to these ulcer sites, margins viable, no malodor. There is no crepitus, no visible abscess noted to the left foot, ankle or leg. Decreased sensation to the left foot c/w chronic peripheral neuropathy, no evidence of acute ischemia to the left foot or ankle, no evidence of charcot neuroarthropathy or compartment syndrome either. Left foot is normal temperature. Assessment & Plan Assessment/Plan (1) Peripheral arterial occlusive disease: (2) Diabetic polyneuropathy: (3) Left foot infection: (4) Osteomyelitis of great toe of left foot: (5) Ulcer of left foot due to type 2 diabetes mellitus: (6) Non-pressure chronic ulcer of other part of left foot with muscle involvement without evidence of necrosis: (7) Non-pressure chronic ulcer of left calf with fat layer exposed: (8) Non-pressure chronic ulcer of left ankle with fat layer exposed: PLAN: Re-evaluation performed. Reviewed diagnostic data. She is afebrile and her vital signs are stable. White blood cell count normal today. Dressing: Iodoform packing plantar lateral foot ulcer to lateral distal incision site, otherwise continue with gauze/aquacel Ag, adaptic, gauze abdominal pad Kerlix and lightly applied Alejandro wrap dressing changes. I recommend changing daily. Offload: To maintain a nonweightbearing status left lower extremity. Keep open ulcers offloaded at all times. Vascular: To follow-up with Dr. Aguilar. She had angio yesterday with balloon angioplasty to the popliteal and proximal anterior tibial artery of the left lower extremity. Host factors: She has uncontrolled diabetes and known peripheral vascular disease amongst her other comorbidities. Medical management per hospitalist is greatly appreciated. Nutritional supplementation recommended to optimize healing. Infection: Reviewed culture results from the surgical clearance fragment, there is MRSA and bacteroides fragilis. The histopathological evaluation of the clearance fragment was however negative for acute osteomyelitis. ID on consult and input is appreciated. She is on ertapenem and vancomycin. Given her multiple comorbidities she still remains at risk for a below or above-knee amputation. I answered all the patient's questions. We will continue to follow her. Please call if questions. Cristal Schmitz DPM, [facility] [phone]
[2021-08-21] MEDS: Polyethylene Glycol 3350 17 GM PACKET PO (06:48)
[2021-08-21] MEDS: Citalopram 10 MG Tablet PO (06:49)
[2021-08-21] MEDS: Furosemide 40 MG Tablet PO (06:49)
[2021-08-21 06:50] VITALS: PULSE 64
[2021-08-21] MEDS: Pantoprazole Sodium 40 MG Tablet PO (06:50)
[2021-08-21] MEDS: amLODIPine 10 MG Tablet PO (06:50)
[2021-08-21] MEDS: Senna/Docusate Sodium 1 Tablet PO ×2 (06:50→18:52)
[2021-08-21] MEDS: Gabapentin 300 MG Capsule PO (06:50)
[2021-08-21] MEDS: Metoprolol Tartrate 25 MG Tablet PO ×2 (06:50→18:52)
[2021-08-21] MEDS: Nystatin Powder 15gm Bottle 1 APPLIC TOPICAL ×2 (06:51→18:53)
[2021-08-21] MEDS: Menthol/Lanolin/Calamine/Znox 113 GM Tube 1 APPLIC TOPICAL ×2 (06:51→18:52)
[2021-08-21] MEDS: Levothyroxine 100 MCG Tablet 200 MCG PO (06:51)
--- NOTE | 2021-08-21 06:57 | NURSING ---
Dressing to right groin saturated and coming off this morning, applied pressure for a few minutes with sterile gauze. Slow oozing from site, no firm areas/hematoma noted around incision. Applied new dressing with 2lb weight. Will continue to monitor.
[2021-08-21 07:08] VITALS: BP 141/71; PULSE 64
[2021-08-21 08:40] LABS: Vancomycin, Trough Level 18.6 ug/mL (5.0-15.0)
[2021-08-21] MEDS: Potassium Chloride Oral Tablet 10 MEQ PO (08:57)
[2021-08-21] MEDS: Aspirin 81 MG TAB.CHEW PO (08:57)
--- NOTE | 2021-08-21 09:00 | PCM.RX.CS ---
Consult Type of Consult: Follow-up Suspected Infection: Osteomyelitis Labs: Sodium 137 mmol/L (136-145) 08/20/21 16:45 Potassium 4.6 mmol/L (3.5-5.1) 08/20/21 16:45 Chloride 105 mmol/L (98-107) 08/20/21 16:45 Carbon Dioxide 27.0 mmol/L (21.0-32.0) 08/20/21 16:45 Anion Gap 5 (5-15) 08/20/21 16:45 BUN 89 mg/dL (7-18) H 08/20/21 16:45 Creatinine 1.56 mg/dL (0.55-1.02) H 08/20/21 16:45 Est GFR (MDRD) Af Amer 42 mL/min (>60) L 08/20/21 16:45 Est GFR (MDRD) Non-Af 35 mL/min (>60) L 08/20/21 16:45 BUN/Creatinine Ratio 57.1 RATIO (10-20) H 08/20/21 16:45 Glucose 176 mg/dL (74-106) H 08/20/21 16:45 Vancomycin Trough 18.6 ug/mL (5.0-15.0) H 08/21/21 07:49 Random Vancomycin 19.3 ug/mL (0.0-15.0) H 08/16/21 07:30 Goal Trough: 15-20 mcg/mL Pharmacy Plan for Drug Dosing: VANCOMYCIN LEVEL RECEIVED Current Vancomycin Dose: 500MG Q24H Number of Doses Received: 4 Vancomycin Level: 18.6 Hours Since Last Dose: 18.5 Renal Function: sCr 1.56, CrCl 27 ML/MIN Renal Function Trend: STABLE Lab/Micro: Vancomycin Plan/Comments: CONTINUE VANCOMYCIN 500MG Q24H Pending Level: NEXT VANCO LEVEL @ 1330 08/23/21 Pharmacy Service will continue to monitor and adjust dosing as required. Labs to be done on [date and time ordered]: VANCOMYCIN LEVEL @ 1330 08/23/21
--- NOTE | 2021-08-21 09:22 | NURSING ---
Pt having oozing at angiogram site. Dressing has been changed multiple times. Called [employer] talked with RN and they came up to assess Pressure was applied. Steri strips with pressure dressing applied. Will continue to monitor for bleeding if continues Dr. Aguilar needs to be paged.
[2021-08-21] MEDS: 0.9 % NaCl (Sterile) Posiflush 10 mL IV ×2 (10:32→21:48)
[2021-08-21 10:40] LABS: Bedside Glucose 124 mg/dL (70-110)
--- NOTE | 2021-08-21 11:05 | NURSING ---
Patient's angio site assessed at this time. Site still draining and dressing is saturated. Will notify Dr. Aguilar.
[2021-08-21] MEDS: Vancomycin IV 500 MG/100 ML BAG 100 MG IV (14:21)
--- NOTE | 2021-08-21 15:18 | NURSING ---
Addendum entered by Shavon Solis 08/21/21 16:10: Dr. Ceja updated New order for Urinalysis and to stop Lasix. Will continue to monitor. Original Note: Daughter stopped this nurse and reported pt c/o burning with urination and increased confusion. Daughter also states pt's urine is strong smelling and dark in color. Upon further assessment BUN noted to be 89 and creatine 1.56 on 08/20, pt on lasix 40 QD reported to charge nurse and Dr. Ceja paged.
[2021-08-21 15:39] VITALS: BP 133/62; PULSE 64; RESP 14; TEMP 36.8; O2SAT 98
[2021-08-21 15:59] LABS: Bacteria 0 SEEN /hpf (None Seen); Mucous, Urine 0 SEEN /hpf (<or=2+); Red Blood Cells-Urine 0 SEEN /hpf (0-5); Squamous Epithelial Cells - UA 0 SEEN /hpf (5-10); White Blood Cells 0 SEEN /hpf (0-5)
[2021-08-21 16:03] LABS: Color, Urine Yellow (Yellow); Glucose, Dipstick Normal (Normal); Ketone-Dipstick Negative (Negative); Leukocyte Esterase-Dipstick Negative /ul (Negative); Nitrite-Dipstick Negative (Negative); Occult Blood-Urine Negative /ul (Negative); Protein-Dipstick 100 mg/dl (Negative); Urine Bilirubin Dipstick Negative (Negative); Urine Clarity Clear (Clear); Urine Urobilinogen Normal (Normal)
[2021-08-21 16:06] LABS: Bedside Glucose 100 mg/dL (70-110)
--- NOTE | 2021-08-21 16:12 | NURSING ---
Pt straight cathed per sterile procedure for urine sample. This nurse drained 850cc out of bladder with straight cath. Pt also had urine in purewick canister. Pt was asked if she felt the need to void before this nurse straight cathed her. Pt stated she did not feel like she had to use the bathroom and did not realize she had that much urine in bladder. Charge Nurse updated and bladder scans added to worklist per nursing judgement, Message left for doctor Marcial.
--- NOTE | 2021-08-21 16:50 | NURSING ---
Patient monitored for signs/symptoms of bleeding or other angiogram site adverse events. Dressing changed and pressure applied as needed until labor standards director nurses able to apply pressure dressing per doctor's order. laborer starch factory in to place pressure dressing at 1300. Patient tolerated procedure well. Patient to remain in flat for one hour following procedure at 1515. At 1515 patient bed position to remain at 30 degrees for 3 hours. At 1815 patient can be at greater than 30 degrees. Reexamined pressure site. Dressing dry and intact. Patient denies discomfort. Daughter at bedside.
[2021-08-21 18:52] VITALS: BP 143/72; PULSE 68
[2021-08-21] MEDS: Gabapentin 600 MG Tablet PO (21:48)
[2021-08-21] MEDS: Atorvastatin Calcium 80 MG Tablet PO (21:48)
[2021-08-21] MEDS: Nortriptyline 25 MG Capsule 50 MG PO (21:48)
[2021-08-21 22:00] VITALS: PULSE 77; RESP 18; O2SAT 97
[2021-08-21 22:15] LABS: Bedside Glucose 98 mg/dL (70-110)
--- NOTE | 2021-08-22 00:47 | NURSING ---
Presents in bed. Television on. Resps even and unlabored. Pressure dressing observed dry and intact, no s/sx of bleeding observed or reported. Denies requests. Call light in reach.
[2021-08-22] MEDS: amLODIPine 10 MG Tablet PO (05:34)
[2021-08-22] MEDS: Gabapentin 300 MG Capsule PO (05:34)
[2021-08-22] MEDS: Pantoprazole Sodium 40 MG Tablet PO (05:34)
[2021-08-22] MEDS: Citalopram 10 MG Tablet PO (05:34)
[2021-08-22] MEDS: Polyethylene Glycol 3350 17 GM PACKET PO (05:34)
[2021-08-22] MEDS: Senna/Docusate Sodium 1 Tablet PO ×2 (05:34→16:35)
[2021-08-22 05:35] VITALS: BP 158/57; PULSE 67
[2021-08-22] MEDS: Metoprolol Tartrate 25 MG Tablet PO ×2 (05:35→16:35)
[2021-08-22] MEDS: Levothyroxine 100 MCG Tablet 200 MCG PO (05:35)
[2021-08-22] MEDS: Menthol/Lanolin/Calamine/Znox 113 GM Tube 1 APPLIC TOPICAL ×2 (05:35→16:36)
[2021-08-22] MEDS: Nystatin Powder 15gm Bottle 1 APPLIC TOPICAL ×2 (05:36→16:36)
[2021-08-22 06:21] LABS: Bedside Glucose 66 mg/dL (70-110)
[2021-08-22 06:45] LABS: Bedside Glucose 104 mg/dL (70-110)
--- NOTE | 2021-08-22 08:01 | NURSING ---
Addendum entered by Carmella Ellington 08/22/21 10:59: AM MEDS GIVEN AT THIS TIME. R' AWAKE. WAS ABLE TO DO THERAPY AND ATE A BANANA PER THERAPY. Original Note: pt very lethargic this AM, dr manzo udpated new order to DC 600mg Neurontin at HS. pt cant keep eyes open to even eat brfkst or take meds. Will try back later.
[2021-08-22] MEDS: 0.9 % NaCl (Sterile) Posiflush 10 mL IV ×3 (10:13→23:26)
[2021-08-22] MEDS: Aspirin 81 MG TAB.CHEW PO (10:55)
[2021-08-22] MEDS: Potassium Chloride Oral Tablet 10 MEQ PO (10:55)
[2021-08-22 11:21] LABS: Bedside Glucose 196 mg/dL (70-110)
[2021-08-22] MEDS: Vancomycin IV 500 MG/100 ML BAG 100 MG IV (13:02)
--- NOTE | 2021-08-22 13:53 | CASEMGMT ---
Social Work Received patient's Medicaid pending #[id number] and additional paperwork for pt to fill out. Pt received it in the mail on TCU and this worker provided copy JFS sent to this worker as well. IRENA SueW
[2021-08-22 15:59] VITALS: BP 141/63; PULSE 72; RESP 14; TEMP 36.8; O2SAT 93
[2021-08-22 16:35] VITALS: PULSE 72
[2021-08-22 20:51] LABS: Bedside Glucose 129 mg/dL (70-110)
--- NOTE | 2021-08-22 20:56 | RAD_ITS ---
STUDY: X-RAY - ABDOMEN/PELVIS REASON FOR EXAM: Female, 71 years old. LETHARGY TECHNIQUE: Two AP supine views of the abdomen and pelvis. COMPARISON: None. FINDINGS: Normal visualized lung bases. Nonspecific bowel gas pattern with scattered gaseous distended loops of small and large bowel. Moderate fecal retention throughout the colon. There is no demonstrated free abdominal air. The visualized liver, spleen and kidneys are grossly normal in size and morphology. Normal soft tissue structures. There are diffuse degenerative changes of the visualized lumbar spine. RAD/Abdomen Single View IMPRESSION: No evidence of free air. No evidence of bowel obstruction. Significant constipation. Electronically Signed: Austen Meza DO at 0:30 EDT Tel , Service support ,
--- NOTE | 2021-08-22 21:07 | NURSING ---
Patient continues with increased lethargy. Dtr Jailyn in tonight expressing concern regarding lethargy. Pt. does respond to tactile/verbal stimuli as evidence by opening eyes, but quickly returns to eyes closed. Unable to take HS medications as ordered by mouth due to lethargy. vital signs obtained: temp 99.3, pulse 70, bp 160/58, resps 14, spo2 91%. glood glucose 129. contacted via telephone regarding lethargy and vital signs, and inability to take medications. new orders received: 1. D/c pamelor 2. D/c neurotin 3. cbc with diff 4. bmp 5.strait cath for UA c&S 6. 2 sets blood cultures 7.chest xray 8. kub 10. Resp panel 11. Covid test Pt. chemical sales representative Jailyn contacted via telephone with update on patient and new orders per . Pt. rep (Jailyn) expresses thanks for update and agreeable to new orders
--- NOTE | 2021-08-22 21:15 | RAD_ITS ---
INDICATION: LETHARGY EXAMINATION/TECHNIQUE: X-RAY - XR Chest 2 Views COMPARISON: 08/08/2021. FINDINGS: The lungs are clear. Sternal cerclage wires and vascular clips are present from a prior sternotomy and coronary artery bypass graft procedure (CABG). No pleural effusion or pneumothorax. Degenerative changes of the thoracic spine. RAD/Chest PA and Lateral IMPRESSION: No acute radiographic abnormalities. Electronically Signed: Yobani Madera MD at 21:31 EDT Tel , Service support ,
[2021-08-22 21:41] LABS: Bedside Glucose 127 mg/dL (70-110)
[2021-08-22 22:09] LABS: Absolute Lymphocyte Count 1.63 X10^3/uL (0.83-4.51); Absolute Neutrophil Count 5.6 X10^3/uL (2.0-7.7); Basophil# 0.04 X10^3/uL; Basophil% 0.5 % (0-1); Eosinophil# 0.34 X10^3/uL; Eosinophils% 4.2 % (0-5); Hematocrit 25.1 % (37-47); Hemoglobin 8.1 g/dL (12.0-15.0); Lymphocyte # 1.63 X10^3/ul (0.83-4.51); Mean Corp Hgb Conc 32.3 g/dL (32-36); Mean Corpuscular Hgb 28.2 pg (27.0-32.0); Mean Corpuscular Volume 87.5 fL (81-99); Mean Platelet Vol. 9.3 fl (6.2-12.0); Monocyte# 0.53 X10^3/uL; Monocyte% 6.5 % (0-10); NRBC Flagged by Analyzer 0 % (0-5); Neutrophil # 5.59 X10^3/uL (2.7-7.7); Neutrophil % 68.4 % (47-70); Platelet Count 295 K/mm3 (150-450); RBC Distribution Width CV 13.6 % (11.6-14.6); Red Blood Count 2.87 M/mm3 (4.2-5.4); White Blood Count 8.2 K/mm3 (4.4-11.0)
[2021-08-22 22:20] LABS: Anion Gap 5 (5-15); BUN 96 mg/dL (7-18); BUN/Creat Ratio 55.8 RATIO (10-20); Calcium,Total 8.6 mg/dL (8.5-10.1); Chloride 105 mmol/L (98-107); Creatinine, Serum 1.72 mg/dL (0.55-1.02); EST Glomerular Filtration Rate 31 mL/min (>60); Est Glom Filt Rate - Afr Amer 38 mL/min (>60); Estimated Creatinine Clearance 24.82 ml/min; Glucose 133 mg/dL (74-106); Potassium 4.9 mmol/L (3.5-5.1); Sodium Level 136 mmol/L (136-145)
--- NOTE | 2021-08-22 23:30 | NURSING ---
Respiratory therapy notified of need for completion of stat resp panel and covid test via telephone
[2021-08-22 23:52] LABS: Bacteria 0 SEEN /hpf (None Seen); Mucous, Urine 0 SEEN /hpf (<or=2+); Red Blood Cells-Urine 0 SEEN /hpf (0-5); Squamous Epithelial Cells - UA 0 SEEN /hpf (5-10); White Blood Cells 0 SEEN /hpf (0-5)
[2021-08-23 00:12] LABS: Color, Urine Straw (Yellow); Glucose, Dipstick Normal (Normal); Ketone-Dipstick Negative (Negative); Leukocyte Esterase-Dipstick Negative /ul (Negative); Nitrite-Dipstick Negative (Negative); Occult Blood-Urine Negative /ul (Negative); Protein-Dipstick 100 mg/dl (Negative); Urine Bilirubin Dipstick Negative (Negative); Urine Clarity Clear (Clear); Urine Urobilinogen Normal (Normal)
--- NOTE | 2021-08-23 00:34 | NURSING ---
contacted via telephone regarding chest xray results, urinalysis results, and CBC/BMP results and patient unable to safely take fluids by mouth at this time due to lethargy. Creatinine and BUN elevated. New order received for IV NS 1/2 liter bolus then NS 75cc/hr. Order repeated back to , no other orders received at this time.
[2021-08-23] MEDS: 0.9 % NaCl (Sterile) Posiflush 10 mL IV (00:43)
[2021-08-23] MEDS: 0.9% Normal Saline 1,000 ML 75 ML IV ×2 (01:49→17:24)
--- NOTE | 2021-08-23 02:06 | NURSING ---
Daughter Jailyn contacted unit for update, notified of continued lethargy and new order for NS IV fluids. Jailyn agreeable to new orders and expresses thanks for update
[2021-08-23 06:25] LABS: Bedside Glucose 83 mg/dL (70-110)
[2021-08-23 06:28] VITALS: BP 126/60; PULSE 61
[2021-08-23] MEDS: Menthol/Lanolin/Calamine/Znox 113 GM Tube 1 APPLIC TOPICAL ×2 (06:28→17:09)
[2021-08-23] MEDS: Metoprolol Tartrate 25 MG Tablet PO ×2 (06:28→17:09)
[2021-08-23] MEDS: Citalopram 10 MG Tablet PO (06:29)
[2021-08-23] MEDS: Polyethylene Glycol 3350 17 GM PACKET PO (06:29)
[2021-08-23] MEDS: Nystatin Powder 15gm Bottle 1 APPLIC TOPICAL ×2 (06:29→17:10)
[2021-08-23] MEDS: Senna/Docusate Sodium 1 Tablet PO ×2 (06:29→17:00)
[2021-08-23] MEDS: amLODIPine 10 MG Tablet PO (06:29)
[2021-08-23] MEDS: Levothyroxine 100 MCG Tablet 200 MCG PO (06:33)
[2021-08-23 06:49] LABS: Probe Check PASS; Specimen Processing Control PASS
--- NOTE | 2021-08-23 07:46 | NURSING ---
Updated Dr. Ceja on KUB results and that no labs scheduled again until 08/27. Order for soap suds enema and to repeat labs today.
[2021-08-23] MEDS: Potassium Chloride Oral Tablet 10 MEQ PO (08:42)
[2021-08-23] MEDS: Aspirin 81 MG TAB.CHEW PO (08:42)
[2021-08-23 11:20] LABS: Bedside Glucose 154 mg/dL (70-110)
[2021-08-23 13:52] LABS: Absolute Lymphocyte Count 1.06 X10^3/uL (0.83-4.51); Absolute Neutrophil Count 6.5 X10^3/uL (2.0-7.7); Basophil# 0.05 X10^3/uL; Basophil% 0.6 % (0-1); Eosinophil# 0.33 X10^3/uL; Eosinophils% 3.9 % (0-5); Hematocrit 25.9 % (37-47); Hemoglobin 8.3 g/dL (12.0-15.0); Lymphocyte # 1.06 X10^3/ul (0.83-4.51); Lymphocyte % 12.6 % (19-41); Mean Corpuscular Hgb 28.7 pg (27.0-32.0); Mean Corpuscular Volume 89.6 fL (81-99); Mean Platelet Vol. 9.2 fl (6.2-12.0); Monocyte# 0.43 X10^3/uL; Monocyte% 5.1 % (0-10); NRBC Flagged by Analyzer 0 % (0-5); Neutrophil # 6.51 X10^3/uL (2.7-7.7); Neutrophil % 77.4 % (47-70); Platelet Count 294 K/mm3 (150-450); RBC Distribution Width CV 13.7 % (11.6-14.6); RBC Distribution Width SD 44.5 fl (35.1-43.9); Red Blood Count 2.89 M/mm3 (4.2-5.4); White Blood Count 8.4 K/mm3 (4.4-11.0)
[2021-08-23 14:39] LABS: Anion Gap 7 (5-15); BUN 86 mg/dL (7-18); BUN/Creat Ratio 57.3 RATIO (10-20); Calcium,Total 8.4 mg/dL (8.5-10.1); Chloride 109 mmol/L (98-107); EST Glomerular Filtration Rate 36 mL/min (>60); Est Glom Filt Rate - Afr Amer 44 mL/min (>60); Estimated Creatinine Clearance 28.46 ml/min; Glucose 156 mg/dL (74-106); Sodium Level 138 mmol/L (136-145)
[2021-08-23] MEDS: Vancomycin IV 500 MG/100 ML BAG 100 MG IV (15:00)
--- NOTE | 2021-08-23 15:07 | PCM.RX.CS ---
Consult Pharmacy has been consulted to manage selected antiobiotic: Vancomycin Type of Consult: Follow-up Suspected Infection: Skin/Soft tissue Prior Doses of Antibiotics Received/Current Regimen: Labs: Sodium 138 mmol/L (136-145) 08/23/21 13:40 Potassium 5.0 mmol/L (3.5-5.1) 08/23/21 13:40 Chloride 109 mmol/L (98-107) H 08/23/21 13:40 Carbon Dioxide 22.0 mmol/L (21.0-32.0) 08/23/21 13:40 Anion Gap 7 (5-15) 08/23/21 13:40 BUN 86 mg/dL (7-18) H 08/23/21 13:40 Creatinine 1.50 mg/dL (0.55-1.02) H 08/23/21 13:40 Est GFR (MDRD) Af Amer 44 mL/min (>60) L 08/23/21 13:40 Est GFR (MDRD) Non-Af 36 mL/min (>60) L 08/23/21 13:40 BUN/Creatinine Ratio 57.3 RATIO (10-20) H 08/23/21 13:40 Glucose 156 mg/dL (74-106) H 08/23/21 13:40 Vancomycin Trough 18.0 ug/mL (5.0-15.0) H 08/23/21 13:40 Random Vancomycin 19.3 ug/mL (0.0-15.0) H 08/16/21 07:30 Microbiology: Microbiology 08/22/21 20:58 Mucosa - Nasopharyngeal Respiratory Panel (PCR) - Final 08/21/21 15:41 Urine Catheter - Catheter Urine Culture - Preliminary Culture exhibits no growth. Weight used for dosin kg Estimated Creatinine Clearance: 28.5 Goal Trough: 15-20 mcg/mL Pharmacy Plan for Drug Dosing: Continue with vancomycin 500mg every 24 hours with trough drawn 24 hours prior to 4 dose. Pharmacy Service will continue to monitor and adjust dosing as required. Follow-Up Labs: Trough Vancomycin Labs to be done on [date and time ordered]: 08/26/2021 @ 7448
[2021-08-23 16:46] LABS: Bedside Glucose 112 mg/dL (70-110)
[2021-08-23] MEDS: Bisacodyl 5 MG Tablet 10 MG PO (17:00)
[2021-08-23 17:09] VITALS: BP 179/69; PULSE 72
[2021-08-23 17:28] VITALS: BP 179/69; PULSE 72; RESP 18; TEMP 36.7; O2SAT 95
[2021-08-23 21:21] LABS: Bedside Glucose 118 mg/dL (70-110)
[2021-08-23] MEDS: Atorvastatin Calcium 80 MG Tablet PO (22:06)
[2021-08-24 00:01] VITALS: PULSE 70; RESP 12; O2SAT 96
[2021-08-24] MEDS: oxyCODONE 5 MG Tablet PO ×2 (02:30→11:34)
[2021-08-24 06:25] LABS: Bedside Glucose 70 mg/dL (70-110)
[2021-08-24] MEDS: Menthol/Lanolin/Calamine/Znox 113 GM Tube 1 APPLIC TOPICAL ×2 (06:39→17:15)
[2021-08-24] MEDS: 0.9% Normal Saline 1,000 ML 75 ML IV ×2 (06:40→21:40)
[2021-08-24] MEDS: Citalopram 10 MG Tablet PO (06:40)
[2021-08-24] MEDS: Nystatin Powder 15gm Bottle 1 APPLIC TOPICAL ×2 (06:40→17:15)
[2021-08-24] MEDS: amLODIPine 10 MG Tablet PO (06:40)
[2021-08-24] MEDS: Polyethylene Glycol 3350 17 GM PACKET PO (06:40)
[2021-08-24] MEDS: Pantoprazole Sodium 40 MG Tablet PO (06:40)
[2021-08-24] MEDS: Senna/Docusate Sodium 1 Tablet PO ×2 (06:40→17:14)
[2021-08-24] MEDS: Levothyroxine 100 MCG Tablet 200 MCG PO (06:41)
[2021-08-24 06:42] VITALS: BP 152/88; PULSE 85
[2021-08-24] MEDS: Metoprolol Tartrate 25 MG Tablet PO ×2 (06:42→17:14)
[2021-08-24] MEDS: Aspirin 81 MG TAB.CHEW PO (08:38)
[2021-08-24] MEDS: Potassium Chloride Oral Tablet 10 MEQ PO (08:38)
--- NOTE | 2021-08-24 10:43 | PN_ITS ---
Subjective Subjective Patient was seen this morning for follow up on feet. She is resting comfortably in bed, no complaints. No complaints of fever, chills, nausea or vomiting. Objective Data Objective Data Vital Signs: Vital Signs Temp Pulse Resp BP Pulse Ox 98.0 F 85 12 152/88 H 96 08/23/21 17:28 08/24/21 06:42 08/24/21 00:01 08/24/21 06:42 08/24/21 00:01 Oxygen Flow Rate (L/min) 2 Oxygen Delivery Method Room Air Weight: 83.149 kg Body Mass Index (BMI) 32.1 Intake & Output: Intake and Output for Last 24 Hours 08/22/21 08/23/21 08/24/21 23:59 23:59 23:59 Intake Total 761.75 / 761.75 1930 / 1930 1355 / 1355 Output Total 1500 / 1500 700 / 700 1150 / 1150 Balance -738.25 / -738.25 1230 / 1230 205 / 205 Lab / Micro Data Result Diagrams: 08/23/21 13:40 08/23/21 13:40 Labs: Laboratory Results - last 24 hr 08/23/21 11:07: POC Glucose 154 H 08/23/21 13:40: Vancomycin Trough 18.0 H 08/23/21 13:40: WBC 8.4, RBC 2.89 L, Hgb 8.3 L, Hct 25.9 L, MCV 89.6, MCH 28.7, MCHC 32.0, RDW Std Deviation 44.5 H, RDW Coeff of Jenna 13.7, Plt Count 294, MPV 9.2, Immature Gran % (Auto) 0.400, Neut % (Auto) 77.4 H, Lymph % (Auto) 12.6 L, [place] % (Auto) 5.1, Eos % (Auto) 3.9, Baso % (Auto) 0.6, Absolute Neuts (auto) 6.5, Absolute Lymphs (auto) 1.06, Nucleated RBC % 0 08/23/21 13:40: Sodium 138, Potassium 5.0, Chloride 109 H, Carbon Dioxide 22.0, Anion Gap 7, BUN 86 H, Creatinine 1.50 H, Estim Creat Clear Calc 28.46, Est GFR (MDRD) Af Amer 44 L, Est GFR (MDRD) Non-Af 36 L, BUN/Creatinine Ratio 57.3 H, Glucose 156 H, Calcium 8.4 L 08/23/21 16:33: POC Glucose 112 H 08/23/21 21:08: POC Glucose 118 H 08/24/21 06:21: POC Glucose 70 Micro: Microbiology 08/21/21 15:41 Urine Catheter - Catheter Urine Culture - Final Culture exhibits no growth. 08/22/21 20:58 Mucosa - Nasopharyngeal Respiratory Panel (PCR) - Final Physical Exam Const alert, oriented x3 and no apparent distress Extremity Extremity Narrative: Left foot TMA with lateral incision site wound site and also plantar lateral foot ulceration healing well. Sutures remain intact. The tissues are viable, no necrosis, no maloder, no erythema, no fluctuance. There was no purulence noted on expression today. There is healing anterior ankle ulcer down to subcutaneous tissue (decreased size) and also healing posterior distal leg ulcer down to subcutaneous tissue with no evidence of infection to these ulcer sites, margins viable, no malodor. There is no crepitus, no visible abscess noted to the left foot, ankle or leg. There is superficial dry blister pressure wound to the right heel with no evidence of infection. Decreased sensation to the left foot c/w chronic peripheral neuropathy, no evidence of acute ischemia to the bilateral foot or ankle, no evidence of charcot neuro arthropathy or compartment syndrome either. Bilateral foot is normal temperature. No other open lesions right foot or ankle. Assessment & Plan Assessment/Plan (1) Peripheral arterial occlusive disease: (2) Diabetic polyneuropathy: (3) Left foot infection: (4) Osteomyelitis of great toe of left foot: (5) Ulcer of left foot due to type 2 diabetes mellitus: (6) Non-pressure chronic ulcer of other part of left foot with muscle invol vement without evidence of necrosis: (7) Non-pressure chronic ulcer of left calf with fat layer exposed: (8) Non-pressure chronic ulcer of left ankle with fat layer exposed: PLAN: Re-evaluation performed. Reviewed diagnostic data. She is afebrile and her vital signs are stable. White blood cell count normal yesterday. Dressing: Iodoform packing plantar lateral foot ulcer and lateral distal incision site, overlying gauze, adaptic to anterior ankle ulcer, overlying gauze, abdominal pad Kerlix and lightly applied Alejandro wrap dressing changes. I recommend changing daily. Mepilex to right heel. Offload: To maintain a nonweightbearing status left lower extremity. Keep open ulcers offloaded at all times. Heels to be kept offloaded at all times as well. Vascular: To follow-up with Dr. Aguilar - She had recent angio with balloon angioplasty to the popliteal and proximal anterior tibial artery of the left lower extremity. Host factors: She has uncontrolled diabetes and known peripheral vascular disease amongst her other comorbidities. Medical management per Dr. Ceja is greatly appreciated. Nutritional supplementation recommended to optimize healing. Infection: Reviewed culture results from the surgical clearance fragment, there is MRSA and bacteroides fragilis. The histopathological evaluation of the clearance fragment was however negative for acute osteomyelitis. ID on consult and input is appreciated. She is on ertapenem and vancomycin. Given her multiple comorbidities she still remains at risk for a below or above-knee amputation. Podiatry will continue to follow.
[2021-08-24 11:11] LABS: Bedside Glucose 135 mg/dL (70-110)
[2021-08-24 14:00] VITALS: BP 158/75; PULSE 66; RESP 16; TEMP 36.6; O2SAT 96
[2021-08-24] MEDS: Vancomycin IV 500 MG/100 ML BAG 100 MG IV (14:32)
[2021-08-24 17:05] LABS: Bedside Glucose 120 mg/dL (70-110)
[2021-08-24 17:14] VITALS: BP 158/75; PULSE 66
[2021-08-24 21:35] LABS: Bedside Glucose 151 mg/dL (70-110)
[2021-08-24] MEDS: Atorvastatin Calcium 80 MG Tablet PO (21:43)
[2021-08-25] MEDS: Menthol/Lanolin/Calamine/Znox 113 GM Tube 1 APPLIC TOPICAL ×2 (05:44→18:04)
[2021-08-25 05:45] VITALS: BP 165/56; PULSE 67
[2021-08-25] MEDS: Metoprolol Tartrate 25 MG Tablet PO ×2 (05:45→18:06)
[2021-08-25] MEDS: Pantoprazole Sodium 40 MG Tablet PO (05:45)
[2021-08-25] MEDS: amLODIPine 10 MG Tablet PO (05:45)
[2021-08-25] MEDS: Citalopram 10 MG Tablet PO (05:45)
[2021-08-25] MEDS: Senna/Docusate Sodium 1 Tablet PO ×2 (05:45→18:04)
[2021-08-25] MEDS: Levothyroxine 100 MCG Tablet 200 MCG PO (05:45)
[2021-08-25] MEDS: Nystatin Powder 15gm Bottle 1 APPLIC TOPICAL ×2 (05:46→18:04)
[2021-08-25] MEDS: Polyethylene Glycol 3350 17 GM PACKET PO (05:46)
[2021-08-25 07:26] LABS: Bedside Glucose 116 mg/dL (70-110)
[2021-08-25] MEDS: Aspirin 81 MG TAB.CHEW PO (08:13)
[2021-08-25] MEDS: Potassium Chloride Oral Tablet 10 MEQ PO (08:13)
[2021-08-25 11:26] LABS: Bedside Glucose 126 mg/dL (70-110)
--- NOTE | 2021-08-25 12:40 | NURSING ---
Information for the mds was obtained from review of the clinical record, interview of resident, staff, and direct observation of resident's care.
[2021-08-25] MEDS: 0.9% Normal Saline 1,000 ML 75 ML IV ×2 (13:31→21:13)
[2021-08-25] MEDS: Vancomycin IV 500 MG/100 ML BAG 100 MG IV (13:32)
--- NOTE | 2021-08-25 14:37 | WOUNDNOTE ---
wound photo: left anterior ankle
--- NOTE | 2021-08-25 14:38 | WOUNDNOTE ---
wound photo: left foot
--- NOTE | 2021-08-25 14:39 | WOUNDNOTE ---
wound photo: left plantar foot
--- NOTE | 2021-08-25 14:39 | WOUNDNOTE ---
wound photo: right heel
--- NOTE | 2021-08-25 14:40 | WOUNDNOTE ---
wound photo: left posterior lower leg
[2021-08-25 15:19] VITALS: BP 165/63; PULSE 65; RESP 18; TEMP 37.1; O2SAT 95
[2021-08-25 17:00] LABS: Bedside Glucose 94 mg/dL (70-110)
[2021-08-25 18:06] VITALS: BP 188/79; PULSE 76
[2021-08-25] MEDS: Atorvastatin Calcium 80 MG Tablet PO (21:13)
[2021-08-25 21:30] LABS: Bedside Glucose 89 mg/dL (70-110)
[2021-08-25 23:42] VITALS: PULSE 81; RESP 14; O2SAT 96
[2021-08-26] MEDS: Menthol/Lanolin/Calamine/Znox 113 GM Tube 1 APPLIC TOPICAL ×3 (04:27→20:40)
[2021-08-26] MEDS: Nystatin Powder 15gm Bottle 1 APPLIC TOPICAL ×2 (04:27→16:55)
[2021-08-26] MEDS: Pantoprazole Sodium 40 MG Tablet PO (04:30)
[2021-08-26] MEDS: Polyethylene Glycol 3350 17 GM PACKET PO (04:30)
[2021-08-26] MEDS: amLODIPine 10 MG Tablet PO (04:30)
[2021-08-26] MEDS: Levothyroxine 100 MCG Tablet 200 MCG PO (04:30)
[2021-08-26 04:31] VITALS: BP 190/74; PULSE 70
[2021-08-26] MEDS: Metoprolol Tartrate 25 MG Tablet PO ×2 (04:31→17:00)
[2021-08-26] MEDS: Citalopram 10 MG Tablet PO (04:31)
[2021-08-26 06:36] LABS: Bedside Glucose 70 mg/dL (70-110)
--- NOTE | 2021-08-26 06:37 | NURSING ---
Recheck blood sugar, 70 after consumption of orange juice. Pt. declines further food or juice at this time before ordered Lantus, states I will eat at breakfast Lantus not administered at this time, patient requests to be administered with breakfast
[2021-08-26 06:46] LABS: Bedside Glucose 70 mg/dL (70-110)
--- NOTE | 2021-08-26 08:15 | PCM.PROGNOTE ---
Subjective Subjective Patient seen and examined resting comfortably. Patient denies any new pedal complaints. Patient denies any nausea, fever, chills, chest pain, shortness of breath, cough, streaking, purulence, vomiting. Objective Data Objective Data Vital Signs: Vital Signs Temp Pulse Resp BP Pulse Ox 98.8 F 70 14 190/74 H 96 08/25/21 15:19 08/26/21 04:31 08/25/21 23:42 08/26/21 04:31 08/25/21 23:42 Oxygen Flow Rate (L/min) 2 Oxygen Delivery Method Room Air Weight: 83.631 kg Body Mass Index (BMI) 32.1 Intake & Output: Intake and Output for Last 24 Hours 08/24/21 08/25/21 08/26/21 23:59 23:59 23:59 Intake Total 2985 / 2985 2107.5 / 2107.5 526.25 / 526.25 Output Total 1750 / 1750 1200 / 1200 1800 / 1800 Balance 1235 / 1235 907.5 / 907.5 -1273.75 / -1273.75 Lab / Micro Data Result Diagrams: 08/23/21 13:40 08/23/21 13:40 Labs: Laboratory Results - last 24 hr 08/25/21 11:15: POC Glucose 126 H 08/25/21 16:58: POC Glucose 94 08/25/21 21:22: POC Glucose 89 08/26/21 06:19: POC Glucose 70 08/26/21 06:34: POC Glucose 70 Micro: Microbiology 08/22/21 22:10 Urine, Catheterized Urine Culture - Final Culture exhibits no growth. 08/22/21 21:54 Blood Culture (Wb) - Left Hand Blood Culture - Preliminary No growth in 48 hours. 08/22/21 21:46 Blood Culture (Wb) - Right Hand Blood Culture - Preliminary No growth in 48 hours. 08/21/21 15:41 Urine Catheter - Catheter Urine Culture - Final Culture exhibits no growth. 08/22/21 20:58 Mucosa - Nasopharyngeal Respiratory Panel (PCR) - Final Physical Exam Const alert, oriented x3 and no apparent distress Extremity Extremity Narrative: Left foot TMA with lateral incision site wound site and also plantar lateral foot ulceration healing well. Sutures remain intact. The tissues are viable, no necrosis, no maloder, no erythema, no fluctuance. There was no purulence noted on expression today. There is healing anterior ankle ulcer down to subcutaneous tissue (decreased size) and also healing posterior distal leg ulcer down to subcutaneous tissue with no evidence of infection to these ulcer sites, margins viable, no malodor. Posterior leg ulceration has noted eschar formation. There is no crepitus, no visible abscess noted to the left foot, ankle or leg. Decreased sensation to the left foot c/w chronic peripheral neuropathy, no evidence of acute ischemia to the bilateral foot or ankle, no evidence of charcot neuroarthropathy or compartment syndrome either. Bilateral foot is normal temperature. No other open lesions right foot or ankle. Left foot DP and PT pulses are palpable since having vascular intervention. Right foot DP and PT pulses remain nonpalpable Right posterior care is noted to have discoloration noted without any open wound from pressure. Assessment & Plan Assessment/Plan (1) Peripheral arterial occlusive disease: (2) Diabetic polyneuropathy: (3) Osteomyelitis of great toe of left foot: (4) Non-pressure chronic ulcer of other part of left foot with muscle involvement without evidence of necrosis: (5) Non-pressure chronic ulcer of left calf with fat layer exposed: (6) Non-pressure chronic ulcer of left ankle with fat layer exposed: PLAN: Re-evaluation performed. Reviewed diagnostic data. She is afebrile and her vital signs are stable. Dressing: Iodoform packing plantar lateral foot ulcer and lateral distal incision site, overlying gauze, adaptic to anterior ankle and posterior leg ulcer, overlying gauze, abdominal pad Kerlix and lightly applied Alejandro wrap dressing changes. I recommend changing daily. Mepilex to right heel. Offload: To maintain a nonweightbearing status left lower extremity. Keep open ulcers offloaded at all times. Heels to be kept offloaded at all times as well. Vascular: To follow-up with Dr. Aguilar - She had recent angio with balloon angioplasty to the popliteal and proximal anterior tibial artery of the left lower extremity. It is noted there is no intervention performed on the right side. Host factors: She has uncontrolled diabetes and known peripheral vascular disease amongst her other comorbidities. Medical management per Dr. Ceja is greatly appreciated. Nutritional supplementation recommended to optimize healing. Infection: Reviewed culture results from the surgical clearance fragment 08/08/2021, there is MRSA and bacteroides fragilis. The histopathological evaluation of the clearance fragment was however negative for acute osteomyelitis. ID on consult and input is appreciated. Given her multiple comorbidities she still remains at risk for a below or above-knee amputation. Podiatry will continue to follow. Patient is noted to be expected to be transferred to another facility sometime next week. Discussed with the patient that the sutures may not be ready to come out before she leaves. At this happens and she will follow up in the office for continued care and suture removal. Patient is to follow-up outpatient 1 week after discharge.
[2021-08-26] MEDS: Aspirin 81 MG TAB.CHEW PO (08:26)
[2021-08-26] MEDS: Potassium Chloride Oral Tablet 10 MEQ PO (08:26)
--- NOTE | 2021-08-26 11:26 | CASEMGMT ---
Social Work Completed health care power of city attorney paperwork with pt. Pt stated she is working with a patient coordinator to complete her living will. Pt named both daughters, Alysa and Jailyn Crawford, as POA, and , Tacho Crawford, as secondary. Copies placed in chart. IRENA SueW
[2021-08-26 11:40] LABS: Bedside Glucose 93 mg/dL (70-110)
[2021-08-26 11:40] LABS: Bedside Glucose 112 mg/dL (70-110)
[2021-08-26 14:16] LABS: Vancomycin, Trough Level 15.8 ug/mL (5.0-15.0)
[2021-08-26] MEDS: Vancomycin IV 500 MG/100 ML BAG 100 MG IV (14:28)
--- NOTE | 2021-08-26 14:57 | PCM.RX.CS ---
Consult Pharmacy has been consulted to manage selected antiobiotic: Vancomycin Type of Consult: Follow-up Suspected Infection: Osteomyelitis Prior Doses of Antibiotics Received/Current Regimen: currently on vanc 500mg IV q24h Labs: Sodium 138 mmol/L (136-145) 08/23/21 13:40 Potassium 5.0 mmol/L (3.5-5.1) 08/23/21 13:40 Chloride 109 mmol/L (98-107) H 08/23/21 13:40 Carbon Dioxide 22.0 mmol/L (21.0-32.0) 08/23/21 13:40 Anion Gap 7 (5-15) 08/23/21 13:40 BUN 86 mg/dL (7-18) H 08/23/21 13:40 Creatinine 1.50 mg/dL (0.55-1.02) H 08/23/21 13:40 Est GFR (MDRD) Af Amer 44 mL/min (>60) L 08/23/21 13:40 Est GFR (MDRD) Non-Af 36 mL/min (>60) L 08/23/21 13:40 BUN/Creatinine Ratio 57.3 RATIO (10-20) H 08/23/21 13:40 Glucose 156 mg/dL (74-106) H 08/23/21 13:40 Vancomycin Trough 15.8 ug/mL (5.0-15.0) H 08/26/21 13:27 Random Vancomycin 19.3 ug/mL (0.0-15.0) H 08/16/21 07:30 Microbiology: Microbiology 08/22/21 22:10 Urine, Catheterized Urine Culture - Final Culture exhibits no growth. 08/22/21 21:54 Blood Culture (Wb) - Left Hand Blood Culture - Preliminary No growth in 48 hours. 08/22/21 21:46 Blood Culture (Wb) - Right Hand Blood Culture - Preliminary No growth in 48 hours. 08/21/21 15:41 Urine Catheter - Catheter Urine Culture - Final Culture exhibits no growth. 08/22/21 20:58 Mucosa - Nasopharyngeal Respiratory Panel (PCR) - Final Weight used for dosin.6 kg Estimated Creatinine Clearance: 28.5ml/min Goal Trough: 15-20 mcg/mL Pharmacy Plan for Drug Dosing: The vanc trough drawn before this afternoon's dose (drawn 24 hours after the previous dose) came back as 15.8. This is still within goal range so will keep same dosing. However, the trough has dropped from 18 the previous time so will check a trough again in 2 days. Chose not to increase the dose at this time since the trough went above 20 a few days ago when the patient was on either 1000mg q24h or 750mg q24h. Pharmacy Service will continue to monitor and adjust dosing as required. Follow-Up Labs: Trough Vancomycin Labs to be done on [date and time ordered]: 08/28/21 13:30
[2021-08-26 16:13] VITALS: BP 168/60; PULSE 73; RESP 14; TEMP 37.2; O2SAT 97
[2021-08-26] MEDS: Acetaminophen 500 MG Tablet 1000 MG PO (16:59)
[2021-08-26 17:00] VITALS: PULSE 73
[2021-08-26 17:06] LABS: Bedside Glucose 111 mg/dL (70-110)
[2021-08-26] MEDS: Atorvastatin Calcium 80 MG Tablet PO (20:37)
[2021-08-26] MEDS: 0.9% Normal Saline 1,000 ML 75 ML IV (20:38)
[2021-08-26 22:06] LABS: Bedside Glucose 82 mg/dL (70-110)
[2021-08-27] MEDS: Levothyroxine 100 MCG Tablet 200 MCG PO (05:27)
[2021-08-27] MEDS: Citalopram 10 MG Tablet PO (05:27)
[2021-08-27] MEDS: amLODIPine 10 MG Tablet PO (05:27)
[2021-08-27] MEDS: Polyethylene Glycol 3350 17 GM PACKET PO (05:29)
[2021-08-27] MEDS: Senna/Docusate Sodium 1 Tablet PO ×2 (05:29→16:58)
[2021-08-27] MEDS: Pantoprazole Sodium 40 MG Tablet PO (05:29)
[2021-08-27 05:31] VITALS: BP 161/69; PULSE 78
[2021-08-27] MEDS: Metoprolol Tartrate 25 MG Tablet PO ×2 (05:31→16:58)
[2021-08-27] MEDS: Clopidogrel Bisulfate 75 MG Tablet PO (05:31)
[2021-08-27] MEDS: 0.9% Normal Saline 1,000 ML 75 ML IV ×2 (05:34→10:16)
[2021-08-27] MEDS: Nystatin Powder 15gm Bottle 1 APPLIC TOPICAL ×2 (05:35→16:58)
[2021-08-27 05:56] LABS: Absolute Neutrophil Count 4.7 X10^3/uL (2.0-7.7); Basophil# 0.04 X10^3/uL; Basophil% 0.6 % (0-1); Eosinophil# 0.39 X10^3/uL; Eosinophils% 5.5 % (0-5); Hematocrit 27.3 % (37-47); Hemoglobin 8.8 g/dL (12.0-15.0); Lymphocyte % 19.8 % (19-41); Mean Corp Hgb Conc 32.2 g/dL (32-36); Mean Corpuscular Hgb 28.2 pg (27.0-32.0); Mean Corpuscular Volume 87.5 fL (81-99); Mean Platelet Vol. 8.5 fl (6.2-12.0); Monocyte# 0.49 X10^3/uL; Monocyte% 6.9 % (0-10); NRBC Flagged by Analyzer 0 % (0-5); Neutrophil # 4.71 X10^3/uL (2.7-7.7); Neutrophil % 66.8 % (47-70); Platelet Count 286 K/mm3 (150-450); RBC Distribution Width CV 13.8 % (11.6-14.6); RBC Distribution Width SD 43.2 fl (35.1-43.9); Red Blood Count 3.12 M/mm3 (4.2-5.4); White Blood Count 7.1 K/mm3 (4.4-11.0)
[2021-08-27 06:21] LABS: Anion Gap 6 (5-15); BUN 43 mg/dL (7-18); BUN/Creat Ratio 36.1 RATIO (10-20); Calcium,Total 8.7 mg/dL (8.5-10.1); Chloride 111 mmol/L (98-107); Creatinine, Serum 1.19 mg/dL (0.55-1.02); EST Glomerular Filtration Rate 47 mL/min (>60); Est Glom Filt Rate - Afr Amer 57 mL/min (>60); Estimated Creatinine Clearance 35.87 ml/min; Glucose 75 mg/dL (74-106); Potassium 4.1 mmol/L (3.5-5.1); Sodium Level 142 mmol/L (136-145)
[2021-08-27 06:46] LABS: Bedside Glucose 79 mg/dL (70-110)
[2021-08-27] MEDS: Potassium Chloride Oral Tablet 10 MEQ PO (08:38)
[2021-08-27] MEDS: Aspirin 81 MG TAB.CHEW PO (08:38)
[2021-08-27 12:11] LABS: Bedside Glucose 108 mg/dL (70-110)
[2021-08-27] MEDS: Vancomycin IV 500 MG/100 ML BAG 100 MG IV (13:00)
[2021-08-27] MEDS: Acetaminophen 500 MG Tablet 1000 MG PO (13:00)
--- NOTE | 2021-08-27 15:06 | CASEMGMT ---
Addendum entered by Lauren Alonzo 08/27/21 15:38: WVM requesting change to a midline and her ATB Invanz is too expensive, requesting to be changed. Spoke with pt and updated her. Inquired about alternative SNF. Dtr requested referral to [facility]. Spoke with Teresita at [facility] - she also requests midline and ATB changed, but agreed to review referral. Referral sent. Message to Dr. Muhammad about changes. Will continue to follow. Original Note: Social Work Ongoing conversations with WVM if pt is accepted for DC 09/01 to continue with IVs. W is unsure if they can take pt due to location of picc because they do not have 24/7 RN coverage, which they would require to administer the pt's IVs. Left message to update dtr. Will continue to follow. Lauren Alonzo, IRENA [facility]
[2021-08-27 16:00] VITALS: BP 132/63; PULSE 69; RESP 16; TEMP 36.6; O2SAT 98
[2021-08-27 16:45] LABS: Bedside Glucose 91 mg/dL (70-110)
[2021-08-27 16:58] VITALS: PULSE 69
[2021-08-27] MEDS: Menthol/Lanolin/Calamine/Znox 113 GM Tube 1 APPLIC TOPICAL (16:58)
[2021-08-27] MEDS: oxyCODONE 5 MG Tablet PO (18:40)
[2021-08-27] MEDS: 0.9 % NaCl (Sterile) Posiflush 10 mL IV (20:33)
[2021-08-27] MEDS: Atorvastatin Calcium 80 MG Tablet PO (20:39)
[2021-08-27 20:45] VITALS: PULSE 70; RESP 16; O2SAT 97
[2021-08-27 21:40] LABS: Bedside Glucose 95 mg/dL (70-110)
[2021-08-28 05:33] VITALS: BP 183/69; PULSE 70
[2021-08-28] MEDS: Metoprolol Tartrate 25 MG Tablet PO ×2 (05:33→17:57)
[2021-08-28] MEDS: Levothyroxine 100 MCG Tablet 200 MCG PO (05:33)
[2021-08-28] MEDS: Citalopram 10 MG Tablet PO (05:33)
[2021-08-28] MEDS: Pantoprazole Sodium 40 MG Tablet PO (05:33)
[2021-08-28] MEDS: Senna/Docusate Sodium 1 Tablet PO ×2 (05:33→17:58)
[2021-08-28] MEDS: Clopidogrel Bisulfate 75 MG Tablet PO (05:33)
[2021-08-28] MEDS: amLODIPine 10 MG Tablet PO (05:33)
[2021-08-28] MEDS: Polyethylene Glycol 3350 17 GM PACKET PO (05:33)
[2021-08-28] MEDS: Menthol/Lanolin/Calamine/Znox 113 GM Tube 1 APPLIC TOPICAL ×2 (05:34→17:57)
[2021-08-28] MEDS: Nystatin Powder 15gm Bottle 1 APPLIC TOPICAL ×2 (05:35→17:58)
[2021-08-28 06:26] LABS: Bedside Glucose 71 mg/dL (70-110)
[2021-08-28] MEDS: Aspirin 81 MG TAB.CHEW PO (08:49)
[2021-08-28] MEDS: Potassium Chloride Oral Tablet 10 MEQ PO (08:49)
--- NOTE | 2021-08-28 10:13 | PCM.PN.ID ---
Physical Exam Narrative Feeling better, foot sore, no fever, no n/v/d. Const alert and no apparent distress General Appearance: cooperative HEENT head/scalp atraumatic Eyes PERRL and EOMs intact bilaterally Resp normal air movement and clear to auscultation bilaterally Cardio regular rate and regular rhythm GI normal to inspection, nondistended, normoactive bowel sounds Skin Skin Narrative: reviewed photos ID ID: Route of nutrition/ use of supplements: [] Nutritional Intake: [] IV Site: [] Ryan Catheter: [] Assessment & Plan Assessment/Plan (1) Acute osteomyelitis of left foot: PLAN: Now s/p TMA 08/08/[address] Schmitz. Wound cx and surg cx with MRSA, raoultella, citrobacter. Clearance cx with some MRSA and anaerobes. ECF unable to accept picc or erta. Will change to vanc/meropenem. Superficial raoultella was R to cefepime, but surg cx was S and clearance cx was neg for GNR. Stop date 09/19/21, weekly labs. Got 1st dose covid shot here around 08/12. Will follow, wrote rx, will order picc to be changed to midline. ID followup as needed.
--- NOTE | 2021-08-28 10:52 | NURSING ---
Notified Purchasing Director. They will have someone to the unit today to remove the PICC line and place a Midline per orders.
[2021-08-28] MEDS: Vancomycin IV 500 MG/100 ML BAG 100 MG IV (14:31)
--- NOTE | 2021-08-28 15:14 | PCM.RX.CS ---
Consult Pharmacy has been consulted to manage selected antiobiotic: Vancomycin Type of Consult: Follow-up Suspected Infection: Osteomyelitis Labs: Sodium 142 mmol/L (136-145) 08/27/21 05:41 Potassium 4.1 mmol/L (3.5-5.1) 08/27/21 05:41 Chloride 111 mmol/L (98-107) H 08/27/21 05:41 Carbon Dioxide 25.0 mmol/L (21.0-32.0) 08/27/21 05:41 Anion Gap 6 (5-15) 08/27/21 05:41 BUN 43 mg/dL (7-18) H 08/27/21 05:41 Creatinine 1.19 mg/dL (0.55-1.02) H 08/27/21 05:41 Est GFR (MDRD) Af Amer 57 mL/min (>60) L 08/27/21 05:41 Est GFR (MDRD) Non-Af 47 mL/min (>60) L 08/27/21 05:41 BUN/Creatinine Ratio 36.1 RATIO (-20) H 08/27/21 05:41 Glucose 75 mg/dL (74-106) 08/27/21 05:41 Vancomycin Trough 15.0 ug/mL (5.0-15.0) 08/28/21 13:40 Random Vancomycin 19.3 ug/mL (0.0-15.0) H 08/16/21 07:30 Microbiology: Microbiology 08/22/21 21:54 Blood Culture (Wb) - Left Hand Blood Culture - Final No growth in 5 days. 08/22/21 21:46 Blood Culture (Wb) - Right Hand Blood Culture - Final No growth in 5 days. 08/22/21 22:10 Urine, Catheterized Urine Culture - Final Culture exhibits no growth. 08/21/21 15:41 Urine Catheter - Catheter Urine Culture - Final Culture exhibits no growth. 08/22/21 20:58 Mucosa - Nasopharyngeal Respiratory Panel (PCR) - Final Goal Trough: 15-20 mcg/mL Pharmacy Plan for Drug Dosing: VANCOMYCIN LEVEL RECEIVED Current Vancomycin Dose: 500mg q24h (1400) Number of Doses Received: Vancomycin Level: 15 Hours Since Last Dose: 24.5 Renal Function: SrCr 1.19 Renal Function Trend: SrCr is improving Lab/Micro: Vancomycin Plan/Comments: pts trough level is within the ordered goal range of 15-20. recommend continuing current dose of 500mg q24h and rechecking trough level in 2 days. Pending Level: 08/30/21 at 1330 Pharmacy Service will continue to monitor and adjust dosing as required. Follow-Up Labs: Trough Vancomycin - 08/30/21 at 1400
[2021-08-28 16:00] VITALS: BP 164/63; PULSE 78; RESP 16; TEMP 36.7; O2SAT 95
[2021-08-28 16:17] VITALS: PULSE 78; RESP 16; O2SAT 95
--- NOTE | 2021-08-28 17:06 | CASEMGMT ---
Social Work SW spoke with Dr. Muhammad and changes have been made to IVATB. SW updated [place] at [facility] and they are able to accept pt with admission on 09/01/21. SW spoke with pt and dgt and updated on the above and they are agreeable to discharge to [facility] on Wednesday under a skilled level of care. CAPRI Spears
[2021-08-28 17:57] VITALS: BP 164/63; PULSE 78
--- NOTE | 2021-08-28 18:46 | NURSING ---
PICC line removed at 1510. Patient tolerated procedure well. 39cm pulled and fully intact. Dressing applied and patient told to leave in place for 24 hours.
[2021-08-28 19:11] LABS: Bedside Glucose 119 mg/dL (70-110)
[2021-08-28 21:36] LABS: Bedside Glucose 103 mg/dL (70-110)
[2021-08-28 21:45] LABS: Bedside Glucose 94 mg/dL (70-110)
[2021-08-28] MEDS: Atorvastatin Calcium 80 MG Tablet PO (22:05)
[2021-08-29 06:21] LABS: Bedside Glucose 71 mg/dL (70-110)
[2021-08-29] MEDS: Clopidogrel Bisulfate 75 MG Tablet PO (06:35)
[2021-08-29] MEDS: Pantoprazole Sodium 40 MG Tablet PO (06:35)
[2021-08-29] MEDS: Levothyroxine 100 MCG Tablet 200 MCG PO (06:35)
[2021-08-29] MEDS: Citalopram 10 MG Tablet PO (06:36)
[2021-08-29] MEDS: Nystatin Powder 15gm Bottle 1 APPLIC TOPICAL ×2 (06:36→17:31)
[2021-08-29] MEDS: amLODIPine 10 MG Tablet PO (06:36)
[2021-08-29] MEDS: Menthol/Lanolin/Calamine/Znox 113 GM Tube 1 APPLIC TOPICAL ×2 (06:37→17:31)
[2021-08-29 06:42] VITALS: BP 174/66; PULSE 76
[2021-08-29] MEDS: Metoprolol Tartrate 25 MG Tablet PO ×2 (06:42→17:31)
[2021-08-29 06:47] VITALS: BP 174/66; PULSE 76; RESP 18; TEMP 36.4; O2SAT 99
--- NOTE | 2021-08-29 08:05 | DS.PCM_ITS ---
Providers Date of Admission: 08/12/21 Primary Care Physician: Dr. Elia Ceja MD Consultations 08/12/21 18:39 Consult: Onc/Wound/engineering model maker Routine Comment: 08/12/21 20:43 Consult: Infectious Disease Routine Consulting Provider: Lai Muhammad Reason for Consult: Left foot osteomyelitis status post transmetatarsal amputation. EMERGENT Consult: No MD Notified: Yes Date Notified: 08/12/21 Time Notified: 20:45 Method of Notification: Verbal Consult: Podiatry Routine Consulting Provider: Cristal Schmitz Reason for Consult: Left foot osteomyelitis status post transmetatarsal amputation. EMERGENT Consult: No Notified: Yes Date Notified: 08/12/21 Time Notified: 20:45 Method of Notification: Verbal 08/13/21 06:49 Consult: Vascular Surgery Routine Consulting Provider: Henry Aguilar Reason for Consult: pad w/ ulcer/infection s/p TMA EMERGENT Consult: No Notified: Yes Date Notified: 08/13/21 Time Notified: 06:49 Method of Notification: Text 08/19/21 20:25 Consult: Onc/Wound/engineering model maker Routine Comment: please eval bilat buttocks Reason For Visit: OSTEOMYELITIS Diagnosis Discharge Diagnosis (1) Acute osteomyelitis of left foot: Status: Resolved Code(s): M86.172 - Other acute osteomyelitis, left ankle and foot Medications at Discharge Home Medications Levemir FlexTouch U-100 Insuln 5 units SUBCUT DAILY 08/07/21 amlodipine 10 mg PO DAILY 08/07/21 aspirin 81 mg PO DAILY 08/07/21 levothyroxine 200 mcg PO DAILY@0600 08/07/21 metoprolol tartrate 25 mg PO BID 08/07/21 pantoprazole 40 mg PO DAILY 08/07/21 potassium chloride 10 meq PO DAILY 08/07/21 atorvastatin 80 mg PO QHS 08/12/21 clopidogrel 75 mg PO DAILY 08/12/21 polyethylene glycol 3350 17 g PO DAILY 08/12/21 meropenem 1 g IV Q12H 22 Days #44 ea 08/28/21 vancomycin in 0.9 % sodium chl 500 mg IV Q24H 22 Days #22 dose 08/28/21 acetaminophen 1,000 mg PO Q6H PRN PRN #0 tab 08/29/21 [id number] [Vlad (with collagen)] 1 packet PO BIDCM #0 ea 08/29/21 bisacodyl 10 mg PO DAILY PRN #0 tab 08/29/21 citalopram 10 mg PO DAILY #0 tab 08/29/21 heparin, porcine (PF) 50 units IV UD PRN #0 ml 08/29/21 menthol-zinc oxide [Calmoseptine] 1 applic TOPICAL BID #0 g 08/29/21 meropenem 1 g IV Q12 #0 ea 08/29/21 nystatin [Nyamyc] 1 applic TOPICAL BID #0 g 08/29/21 oxycodone 5 mg PO Q4H PRN PRN 3 Days #18 tab 08/29/21 sennosides-docusate sodium [Stool Softener-Stimulant Laxat] 1 tab PO BID #0 tab 08/29/21 sodium chloride 0.9 % (flush) [BD PosiFlush Normal Saline 0.9] 10 - 40 ml IV UD PRN #0 ml 08/29/21 sodium chloride 0.9 % (flush) [Normal Saline Flush] 10 - 40 ml IV UD PRN #0 ml 08/29/21 vancomycin in dextrose 5 % 500 mg IV Q24H #0 ml 08/29/21 Hospital Course Operations - (Left metatarsal amputation.) Procedures None Summary of Care Provided Minutes Spent on Discharge: 35 Hospital Course: 71 year old female with below past medical history hospitalized for left foot osteomyelitis, underwent left transmetatarsal amputation 08/08/[address] Schmitz, complicated by acute kidney injury, postoperative anemia requiring transfusion, admitted to TCU with debility, here for rehabilitation, strengthening, director long term care intravenous antibiotics, prior to discharge home with daughter. Discharge to [facility] 09/01/2021, skilled level of care, PT/OT, intravenous antibiotics. Antibiotic stop date 09/19/2021. Physical Exam Const alert and oriented x3 General Appearance: cooperative HEENT normocephalic Eyes PERRL and EOMs intact bilaterally Neck supple, no JVD and no carotid bruits Resp normal respiratory effort, normal air movement and clear to auscultation bilaterally Cardio regular rate and regular rhythm GI normal to inspection, nondistended, normoactive bowel sounds, non-tender and non-distended Extremity normal capillary refill General Extremity: Negative for edema Skin no rashes or lesions noted General Skin Exam: no breakdown Psych affect normal Appearance: appropriate Weight / BMI Weight Weight: 83.631 kg Body Mass Index (BMI) 32.1 ABG / Lab / Microbiology Data Result Diagrams: 08/27/21 05:41 08/27/21 05:41 Laboratory: Laboratory Results - last 24 hr 08/28/21 11:15: POC Glucose 119 H 08/28/21 13:40: Vancomycin Trough 15.0 08/28/21 16:09: POC Glucose 103 08/28/21 21:40: POC Glucose 94 08/29/21 06:08: POC Glucose 71 Microbiology: Microbiology 08/22/21 21:54 Blood Culture (Wb) - Left Hand Blood Culture - Final No growth in 5 days. 08/22/21 21:46 Blood Culture (Wb) - Right Hand Blood Culture - Final No growth in 5 days. 08/22/21 22:10 Urine, Catheterized Urine Culture - Final Culture exhibits no growth. 08/21/21 15:41 Urine Catheter - Catheter Urine Culture - Final Culture exhibits no growth. 08/22/21 20:58 Mucosa - Nasopharyngeal Respiratory Panel (PCR) - Final D/C Instructions Discharge Diet: No restrictions Discharge Activity: Return to Normal Activity, May Shower and Use Walker Weight Bearing Status: No weight bearing (Left lower extremity.) Call your doctor if you observe: Fever of 101 or Higher, Inability to urinate, Inability to have a bowel movement, Shortness of breath, Dizziness, Fainting spells, Swelling in the ankles, Chest pain and Uncontrolled pain Additional Instructions: Discharge to [facility] 09/01/2021, skilled level of care, PT/OT, intravenous antibiotics. Please Follow Up With: Henry Aguilar MD When: As scheduled. Meaningful Use Info Meaningful Use Diagnoses (Choose all that apply): None applicable Discharge Plan Admission Admit Date/Time: 08/12/21 16:55 Primary Reason for Your Visit: Debility. Attending Provider: Elia Ceja Chi Primary Care Provider: Elia Ceja Chi Consulting Providers: Henry Aguilar ; Lai Muhammad ; Cristal Schmitz Instructions Additional Instructions / Restrictions: to continue daily wound care to left foot with packing to lateral and plantar foot wounds and betadine along incision with adaptic to anterior ankle and posterior leg wound. To continue offloading bilateral heels Discharge Orders/Prescriptions Prescriptions: New vancomycin in 0.9 % sodium chl 500 mg/100 mL piggyback 500 mg IV Q24H 22 Days Qty: 22 RF: 0 meropenem 1 gram recon soln 1 g IV Q12H 22 Days Qty: 44 RF: 0 citalopram 10 mg Tablet 10 mg PO DAILY Qty: 0 RF: 0 sennosides-docusate sodium [Stool Softener-Stimulant Laxat] 8.6-50 mg Tablet 1 tab PO BID Qty: 0 RF: 0 acetaminophen 500 mg Tablet 1,000 mg PO Q6H PRN PRN (Reason: Pain Score 1-10) Qty: 0 RF: 0 meropenem 1 gram Recon Soln 1 g IV Q12 Qty: 0 RF: 0 bisacodyl 5 mg Tablet,Delayed Release (Dr/Ec) 10 mg PO DAILY PRN (Reason: Constipation) Qty: 0 RF: 0 nystatin [Nyamyc] 100,000 unit/gram Powder 1 applic topical BID Qty: 0 RF: 0 vancomycin in dextrose 5 % 500 mg/100 mL Piggyback 500 mg IV Q24H Qty: 0 RF: 0 oxycodone 5 mg Tablet 5 mg PO Q4H PRN PRN (Reason: Pain Score 6-10) 3 Days Qty: 18 RF: 0 sodium chloride 0.9 % (flush) [BD PosiFlush Normal Saline 0.9] Syringe 10 - 40 ml IV UD PRN (Reason: Open End PICC Flush) Qty: 0 RF: 0 sodium chloride 0.9 % (flush) [Normal Saline Flush] Syringe 10 - 40 ml IV UD PRN (Reason: Port access or dressing change) Qty: 0 RF: 0 heparin, porcine (PF) 10 unit/mL Syringe 50 units IV UD PRN (Reason: PICC Line Heparin Flush) Qty: 0 RF: 0 menthol-zinc oxide [Calmoseptine] 0.44-20.6 % Ointment 1 applic topical BID Qty: 0 RF: 0 Vlad (with collagen) 7-7-1.5 gram Powder In Packet 1 packet PO BIDCM Qty: 0 RF: 0 Continued potassium chloride 10 mEq Capsule, Extended Release 10 meq PO DAILY RF: 0 amlodipine 10 mg Tablet 10 mg PO DAILY RF: 0 metoprolol tartrate 25 mg Tablet 25 mg PO BID RF: 0 aspirin 81 mg Capsule 81 mg PO DAILY RF: 0 pantoprazole 20 MG tablet,delayed release (DR/EC) 40 mg PO DAILY RF: 0 levothyroxine 150 MCG tablet 200 mcg PO DAILY@0600 RF: 0 Levemir FlexTouch U-100 Insuln 100 UNITS/ML insulin pen 5 units subcut DAILY RF: 0 atorvastatin 80 MG tablet 80 mg PO QHS RF: 0 polyethylene glycol 3350 17 GM powder in packet 17 g PO DAILY RF: 0 clopidogrel 75 MG tablet 75 mg PO DAILY RF: 0 Discontinued furosemide 40 mg Tablet 40 mg PO DAILY RF: 0 docusate sodium 100 mg Capsule 200 mg PO BID RF: 0 insulin aspart U-100 [Novolog Flexpen U-100 Insulin] 100 unit/mL (3 mL) Insulin Pen 0 - 10 unit SUBCUT 4X/DAY RF: 0 gabapentin 600 MG tablet 300 mg PO BID RF: 0 gabapentin 300 MG capsule 600 mg PO QHS RF: 0 vancomycin 1,000 mg recon soln 1 g IV .qam RF: 0 nortriptyline 25 MG capsule 50 mg PO QHS RF: 0 ertapenem [Invanz] 1 gram recon soln 1 g IV Q24H RF: 0 multivitamin with folic acid [Thera] 1 TABLET tablet 1 tab PO DAILYCM RF: 0 Referrals / Follow Up: Cristal Schmitz DPM [STAFF PHYSICIAN] - (1 week in office) Elia Ceja Chi, MD [Primary Care Provider] - Disposition Disposition (needs filled in before D/C Order can be placed): Senior Living Facility
--- NOTE | 2021-08-29 08:15 | PCM.TXEXTCAR ---
Diet 08/20/21 13:00 Diet: Cardiac: Calorie-Controlled Food consistency:: Regular Liquid Consistency:: Regular/Thin Dietary Modifications:: Sodium Restricted Is pt able to select menu?: Yes Diet Comments: 120 ml glucerna shake w/ meals How many daily calories?: 1800 calorie Routine Orders/Code Status Suppository Type: Dulcolax 10mg Suppository Frequency: Daily PRN Routine Lab Work: CBC, BMP and - (Vancomycin trough.) Code Status: DNRCC-A (No intubation.) Wound(s) Chest: Wound Type: Surgical Incision Neck: Wound Type: Surgical Incision Upper leg: Wound Type: Surgical Incision Lower abdominal fold: Wound Type: Old Surgical Scar Left calf: Wound Type: open sores Right calf: Wound Type: Abrasion Left buttocks: Wound Type: Shearing Dressing Change: jose Right 2nd and 3rd toes: Wound Type: Blackened Right great toe: Wound Type: scab Left foot: Wound Type: surgical incision s/p TMA Dressing Change: Packed with NuGauze Left midfoot: Wound Type: Skin Tear Dressing Change: adaptic, guaze Left bottom: Wound Type: Puncture Dressing Change: Packed with Iodoform Lateral left incision: Wound Type: Surgical Incision Dressing Change: Packed with Iodoform left plantar foot: Wound Type: Neuropathic/Diabetic Foot Ulcer Dressing Change: Packed with NuGauze left posterior lower leg: Wound Type: Abrasion Dressing Change: Adaptic left posterolateral lower leg: Wound Type: healing wound with surrounding scabbing Dressing Change: Adaptic left anterior ankle: Wound Type: Neuropathic/Diabetic Foot Ulcer Dressing Change: Adaptic RIGHT HEEL: Wound Type: Pressure Injury Dressing Change: Mepilex 08/25/21 RT GROIN: Wound Type: Puncture Dressing Change: bandaide Therapies Weight Bearing: Non weight bearing (Left lower extremity.) Physical Therapy: Eval and Treat Occupational Therapy: Eval and Treat Problem/Diagnosis (1) Acute osteomyelitis of left foot: Status: Resolved Allergies/Procedures Done in Hospital Allergies baclofen Adverse Reaction (Verified 08/19/21 08:38) Other confusion Procedures: - (Left transmetatarsal amputation.) Type of Care/Length of Stay Estimated LOS: Convalescent Care Less Than 30 days Type of Care Needed: Skilled Rehab Potential: Fair Prognosis: Fair Additional Orders/Day of Discharge Day of Discharge: 09/01/21 Dietary and Speech Recommendations Dietitian Recommendations/Changes: Will continue diet as ordered - and continue Vlad bid to help w/ wound healing. Will provide 120 ml glucerna shake w/ meals for increased nutrition if consumed d/t variable po intake. Follow Up Care Please follow up with your Primary Care Physician in: Elia Ceja Chi, MD Please Follow Up With: Henry Aguilar MD When: If discharged from [facility]. Please Follow Up With: Yohana Urias DPM When: 1 week. Discharge Plan Admission Admit Date/Time: 08/12/21 16:55 Primary Reason for Your Visit: Debility. Attending Provider: Elia Ceja Chi Primary Care Provider: Elia Ceja Chi Consulting Providers: Henry Aguilar ; Lai Muhammad ; Cristal Schmitz Instructions Additional Instructions / Restrictions: to continue daily wound care to left foot with packing to lateral and plantar foot wounds and betadine along incision with adaptic to anterior ankle and posterior leg wound. To continue offloading bilateral heels Discharge Orders/Prescriptions Prescriptions: New vancomycin in 0.9 % sodium chl 500 mg/100 mL piggyback 500 mg IV Q24H 22 Days Qty: 22 RF: 0 meropenem 1 gram recon soln 1 g IV Q12H 22 Days Qty: 44 RF: 0 citalopram 10 mg Tablet 10 mg PO DAILY Qty: 0 RF: 0 sennosides-docusate sodium [Stool Softener-Stimulant Laxat] 8.6-50 mg Tablet 1 tab PO BID Qty: 0 RF: 0 acetaminophen 500 mg Tablet 1,000 mg PO Q6H PRN PRN (Reason: Pain Score 1-10) Qty: 0 RF: 0 meropenem 1 gram Recon Soln 1 g IV Q12 Qty: 0 RF: 0 bisacodyl 5 mg Tablet,Delayed Release (Dr/Ec) 10 mg PO DAILY PRN (Reason: Constipation) Qty: 0 RF: 0 nystatin [Nyamyc] 100,000 unit/gram Powder 1 applic topical BID Qty: 0 RF: 0 vancomycin in dextrose 5 % 500 mg/100 mL Piggyback 500 mg IV Q24H Qty: 0 RF: 0 oxycodone 5 mg Tablet 5 mg PO Q4H PRN PRN (Reason: Pain Score 6-10) 3 Days Qty: 18 RF: 0 sodium chloride 0.9 % (flush) [BD PosiFlush Normal Saline 0.9] Syringe 10 - 40 ml IV UD PRN (Reason: Open End PICC Flush) Qty: 0 RF: 0 sodium chloride 0.9 % (flush) [Normal Saline Flush] Syringe 10 - 40 ml IV UD PRN (Reason: Port access or dressing change) Qty: 0 RF: 0 heparin, porcine (PF) 10 unit/mL Syringe 50 units IV UD PRN (Reason: PICC Line Heparin Flush) Qty: 0 RF: 0 menthol-zinc oxide [Calmoseptine] 0.44-20.6 % Ointment 1 applic topical BID Qty: 0 RF: 0 Vlad (with collagen) 7-7-1.5 gram Powder In Packet 1 packet PO BIDCM Qty: 0 RF: 0 Continued potassium chloride 10 mEq Capsule, Extended Release 10 meq PO DAILY RF: 0 amlodipine 10 mg Tablet 10 mg PO DAILY RF: 0 metoprolol tartrate 25 mg Tablet 25 mg PO BID RF: 0 aspirin 81 mg Capsule 81 mg PO DAILY RF: 0 pantoprazole 20 MG tablet,delayed release (DR/EC) 40 mg PO DAILY RF: 0 levothyroxine 150 MCG tablet 200 mcg PO DAILY@0600 RF: 0 Levemir FlexTouch U-100 Insuln 100 UNITS/ML insulin pen 5 units subcut DAILY RF: 0 atorvastatin 80 MG tablet 80 mg PO QHS RF: 0 polyethylene glycol 3350 17 GM powder in packet 17 g PO DAILY RF: 0 clopidogrel 75 MG tablet 75 mg PO DAILY RF: 0 Discontinued furosemide 40 mg Tablet 40 mg PO DAILY RF: 0 docusate sodium 100 mg Capsule 200 mg PO BID RF: 0 insulin aspart U-100 [Novolog Flexpen U-100 Insulin] 100 unit/mL (3 mL) Insulin Pen 0 - 10 unit SUBCUT 4X/DAY RF: 0 gabapentin 600 MG tablet 300 mg PO BID RF: 0 gabapentin 300 MG capsule 600 mg PO QHS RF: 0 vancomycin 1,000 mg recon soln 1 g IV .qam RF: 0 nortriptyline 25 MG capsule 50 mg PO QHS RF: 0 ertapenem [Invanz] 1 gram recon soln 1 g IV Q24H RF: 0 multivitamin with folic acid [Thera] 1 TABLET tablet 1 tab PO DAILYCM RF: 0 Referrals / Follow Up: Cristal Schmitz DPM [STAFF PHYSICIAN] - (1 week in office) Elia eCja Chi, MD [Primary Care Provider] - Disposition Disposition (needs filled in before D/C Order can be placed): Long-Term Facility
[2021-08-29] MEDS: Aspirin 81 MG TAB.CHEW PO (08:22)
[2021-08-29] MEDS: Potassium Chloride Oral Tablet 10 MEQ PO (08:22)
[2021-08-29 11:20] LABS: Bedside Glucose 123 mg/dL (70-110)
--- NOTE | 2021-08-29 13:28 | CASEMGMT ---
Social Work BIMS and PHQ9 interviews completed on this date for MDS assessment. CAPRI Spears
[2021-08-29] MEDS: 0.9% Saline Lock 10 ML Syringe IV ×3 (14:53→21:12)
[2021-08-29] MEDS: Vancomycin IV 500 MG/100 ML BAG 100 MG IV (14:55)
[2021-08-29 14:57] VITALS: BP 135/57; PULSE 72; RESP 15; TEMP 36.3; O2SAT 96
--- NOTE | 2021-08-29 15:10 | CASEMGMT ---
Addendum entered by Isadora Salmeron 08/29/21 15:12: Anai Crespo notified to cancel referral. CAPRI Spears Original Note: Social Work Plan to d/c to [facility] on 09/01. Transportation arranged with [facility] for 1000 pickup. PassRR completed in [employer] system and orders faxed to [facility]. Pt Dgt, [facility] and nursing updated on time of discharge. Plan: [facility] 09/01/21 CAPRI Spears
[2021-08-29 16:21] LABS: Bedside Glucose 115 mg/dL (70-110)
[2021-08-29 17:31] VITALS: PULSE 72
[2021-08-29] MEDS: Senna/Docusate Sodium 1 Tablet PO (17:31)
[2021-08-29] MEDS: oxyCODONE 5 MG Tablet PO (19:34)
[2021-08-29 20:00] VITALS: PULSE 72; RESP 14; O2SAT 96
[2021-08-29] MEDS: Atorvastatin Calcium 80 MG Tablet PO (20:15)
[2021-08-29 21:55] LABS: Bedside Glucose 70 mg/dL (70-110)
[2021-08-30] MEDS: 0.9% Saline Lock 10 ML Syringe IV ×3 (05:26→22:22)
[2021-08-30] MEDS: Nystatin Powder 15gm Bottle 1 APPLIC TOPICAL ×2 (05:27→17:45)
[2021-08-30] MEDS: Menthol/Lanolin/Calamine/Znox 113 GM Tube 1 APPLIC TOPICAL ×2 (05:27→17:47)
[2021-08-30] MEDS: Levothyroxine 100 MCG Tablet 200 MCG PO (05:41)
[2021-08-30] MEDS: Senna/Docusate Sodium 1 Tablet PO ×2 (05:41→17:30)
[2021-08-30] MEDS: Clopidogrel Bisulfate 75 MG Tablet PO (05:41)
[2021-08-30] MEDS: Polyethylene Glycol 3350 17 GM PACKET PO (05:41)
[2021-08-30] MEDS: Pantoprazole Sodium 40 MG Tablet PO (05:41)
[2021-08-30 05:42] VITALS: BP 188/72; PULSE 76
[2021-08-30] MEDS: amLODIPine 10 MG Tablet PO (05:42)
[2021-08-30] MEDS: Metoprolol Tartrate 25 MG Tablet PO ×2 (05:42→17:30)
[2021-08-30] MEDS: Citalopram 10 MG Tablet PO (05:44)
[2021-08-30 06:30] LABS: Bedside Glucose 80 mg/dL (70-110)
[2021-08-30] MEDS: Potassium Chloride Oral Tablet 10 MEQ PO (08:10)
[2021-08-30] MEDS: Aspirin 81 MG TAB.CHEW PO (08:10)
[2021-08-30 11:20] LABS: Bedside Glucose 131 mg/dL (70-110)
[2021-08-30 14:10] VITALS: PULSE 69; RESP 18; O2SAT 96
[2021-08-30 14:56] LABS: Vancomycin, Trough Level 14.8 ug/mL (5.0-15.0)
[2021-08-30 15:05] VITALS: BP 149/67; PULSE 69; RESP 18; TEMP 36.9; O2SAT 95
[2021-08-30] MEDS: Vancomycin IV 500 MG/100 ML BAG 100 MG IV (15:20)
--- NOTE | 2021-08-30 15:44 | PCM.RX.CS ---
Consult Pharmacy has been consulted to manage selected antiobiotic: Vancomycin Type of Consult: Follow-up Suspected Infection: Osteomyelitis Prior Doses of Antibiotics Received/Current Regimen: currently on vanc 500mg IV q24h Labs: Sodium 142 mmol/L (136-145) 08/27/21 05:41 Potassium 4.1 mmol/L (3.5-5.1) 08/27/21 05:41 Chloride 111 mmol/L (98-107) H 08/27/21 05:41 Carbon Dioxide 25.0 mmol/L (21.0-32.0) 08/27/21 05:41 Anion Gap 6 (5-15) 08/27/21 05:41 BUN 43 mg/dL (7-18) H 08/27/21 05:41 Creatinine 1.19 mg/dL (0.55-1.02) H 08/27/21 05:41 Est GFR (MDRD) Af Amer 57 mL/min (>60) L 08/27/21 05:41 Est GFR (MDRD) Non-Af 47 mL/min (>60) L 08/27/21 05:41 BUN/Creatinine Ratio 36.1 RATIO (10-20) H 08/27/21 05:41 Glucose 75 mg/dL (74-106) 08/27/21 05:41 Vancomycin Trough 14.8 ug/mL (5.0-15.0) 08/30/21 13:30 Random Vancomycin 19.3 ug/mL (0.0-15.0) H 08/16/21 07:30 Microbiology: Microbiology 08/30/21 05:30 Nasal Secretion SARS-CoV-2 Antigen (Rapid) - Final 08/22/21 21:54 Blood Culture (Wb) - Left Hand Blood Culture - Final No growth in 5 days. 08/22/21 21:46 Blood Culture (Wb) - Right Hand Blood Culture - Final No growth in 5 days. 08/22/21 22:10 Urine, Catheterized Urine Culture - Final Culture exhibits no growth. 08/21/21 15:41 Urine Catheter - Catheter Urine Culture - Final Culture exhibits no growth. 08/22/21 20:58 Mucosa - Nasopharyngeal Respiratory Panel (PCR) - Final Weight used for dosin.6 kg Estimated Creatinine Clearance: 36 ml/min Goal Trough: 15-20 mcg/mL Pharmacy Plan for Drug Dosing: The vanc trough level drawn today came back as 14.8 (drawn approx 22.5 hrs after the previous dose). It would have been even lower if drawn closer to 24 hours. The trough has been trending down with the last few draws and since it is now below goal range and since the patient's SCr has improved, will increase next dose back up to 750mg IV q24h. The 500mg current dose has already been hung today so will start the 750mg q24h a few hours earlier tomorrow. Will check a trough before the 3rd new dose. Pharmacy Service will continue to monitor and adjust dosing as required. Follow-Up Labs: Trough Vancomycin Labs to be done on [date and time ordered]: 09/02/21 09:30
[2021-08-30 17:11] LABS: Bedside Glucose 120 mg/dL (70-110)
[2021-08-30 17:30] VITALS: BP 149/67; PULSE 69
[2021-08-30] MEDS: Atorvastatin Calcium 80 MG Tablet PO (20:41)
[2021-08-30 21:46] LABS: Bedside Glucose 109 mg/dL (70-110)
[2021-08-31] MEDS: Menthol/Lanolin/Calamine/Znox 113 GM Tube 1 APPLIC TOPICAL ×2 (05:48→17:26)
[2021-08-31 05:49] VITALS: BP 185/72; PULSE 73
[2021-08-31] MEDS: Metoprolol Tartrate 25 MG Tablet PO ×2 (05:49→17:26)
[2021-08-31] MEDS: Nystatin Powder 15gm Bottle 1 APPLIC TOPICAL ×2 (05:50→17:27)
[2021-08-31] MEDS: Pantoprazole Sodium 40 MG Tablet PO (05:50)
[2021-08-31] MEDS: Levothyroxine 100 MCG Tablet 200 MCG PO (05:50)
[2021-08-31] MEDS: amLODIPine 10 MG Tablet PO (05:50)
[2021-08-31] MEDS: Polyethylene Glycol 3350 17 GM PACKET PO (05:50)
[2021-08-31] MEDS: Senna/Docusate Sodium 1 Tablet PO ×2 (05:50→17:26)
[2021-08-31] MEDS: Citalopram 10 MG Tablet PO (05:50)
[2021-08-31] MEDS: 0.9% Saline Lock 10 ML Syringe IV (05:52)
[2021-08-31] MEDS: Clopidogrel Bisulfate 75 MG Tablet PO (06:13)
[2021-08-31 06:31] LABS: Bedside Glucose 71 mg/dL (70-110)
[2021-08-31] MEDS: Losartan Potassium 100 MG Tablet PO (08:12)
[2021-08-31] MEDS: Aspirin 81 MG TAB.CHEW PO (08:12)
[2021-08-31] MEDS: Potassium Chloride Oral Tablet 10 MEQ PO (08:15)
[2021-08-31 11:35] LABS: Bedside Glucose 131 mg/dL (70-110)
[2021-08-31 16:00] VITALS: BP 153/66; PULSE 66; RESP 14; TEMP 36.4; O2SAT 98
[2021-08-31 16:51] LABS: Bedside Glucose 106 mg/dL (70-110)
[2021-08-31 17:26] VITALS: BP 153/66; PULSE 66
[2021-08-31] MEDS: 0.9 % NaCl (Sterile) Posiflush 10 mL IV ×2 (18:04→22:09)
[2021-08-31] MEDS: oxyCODONE 5 MG Tablet PO (20:51)
[2021-08-31] MEDS: Atorvastatin Calcium 80 MG Tablet PO (20:52)
[2021-08-31 21:00] VITALS: PULSE 76; RESP 16; O2SAT 95
[2021-08-31 21:21] LABS: Bedside Glucose 126 mg/dL (70-110)
[2021-09-01] MEDS: 0.9% Saline Lock 10 ML Syringe IV (05:09)
[2021-09-01] MEDS: Clopidogrel Bisulfate 75 MG Tablet PO (05:12)
[2021-09-01] MEDS: Polyethylene Glycol 3350 17 GM PACKET PO (05:12)
[2021-09-01] MEDS: Losartan Potassium 100 MG Tablet PO (05:12)
[2021-09-01] MEDS: Levothyroxine 100 MCG Tablet 200 MCG PO (05:12)
[2021-09-01] MEDS: Citalopram 10 MG Tablet PO (05:12)
[2021-09-01] MEDS: amLODIPine 10 MG Tablet PO (05:12)
[2021-09-01] MEDS: Pantoprazole Sodium 40 MG Tablet PO (05:12)
[2021-09-01] MEDS: Nystatin Powder 15gm Bottle 1 APPLIC TOPICAL (05:13)
[2021-09-01 05:15] VITALS: BP 192/77; PULSE 75
[2021-09-01] MEDS: Menthol/Lanolin/Calamine/Znox 113 GM Tube 1 APPLIC TOPICAL (05:15)
[2021-09-01] MEDS: Metoprolol Tartrate 25 MG Tablet PO (05:15)
[2021-09-01] MEDS: Senna/Docusate Sodium 1 Tablet PO (05:16)
[2021-09-01 06:16] VITALS: BP 175/69; PULSE 69
[2021-09-01 06:21] LABS: Bedside Glucose 85 mg/dL (70-110)
[2021-09-01 06:55] VITALS: PULSE 75; RESP 14; O2SAT 99
[2021-09-01 08:00] VITALS: BP 185/73; PULSE 76; RESP 18; TEMP 36.1; O2SAT 98
[2021-09-01] MEDS: Aspirin 81 MG TAB.CHEW PO (08:01)
[2021-09-01] MEDS: Potassium Chloride Oral Tablet 10 MEQ PO (08:02)
--- NOTE | 2021-09-01 08:44 | CASEMGMT ---
Social Work COVID-19 test results faxed to [place]. Maykel Lynn JUDICIAL LAW CLERK, RUBIS
== END 2021-09-01 10:05 | disposition skilled nursing facility (03) | DRG 560 ==
PROVIDERS: Admitting Provider Family Medicine Geriatric Medicine; PCP Family Medicine Geriatric Medicine; Visit Provider Family Medicine Geriatric Medicine
DX: Z47.81 Encounter for orthopedic aftercare following surgical amputation (principal); E11.52 Type 2 diabetes mellitus with diabetic peripheral angiopathy with gangrene; M86.8X7 Other osteomyelitis, ankle and foot; I69.354 Hemiplegia and hemiparesis following cerebral infarction affecting left non-dominant side; L97.525 Non-pressure chronic ulcer of other part of left foot with muscle involvement without evidence of necrosis; L97.222 Non-pressure chronic ulcer of left calf with fat layer exposed; L97.322 Non-pressure chronic ulcer of left ankle with fat layer exposed; M86.172 Other acute osteomyelitis, left ankle and foot; Z23 Encounter for immunization; Z89.422 Acquired absence of other left toe(s); E78.5 Hyperlipidemia, unspecified; I25.10 Atherosclerotic heart disease of native coronary artery without angina pectoris; E11.42 Type 2 diabetes mellitus with diabetic polyneuropathy; E11.621 Type 2 diabetes mellitus with foot ulcer; E03.9 Hypothyroidism, unspecified; I10 Essential (primary) hypertension; E11.69 Type 2 diabetes mellitus with other specified complication; E11.622 Type 2 diabetes mellitus with other skin ulcer; E11.51 Type 2 diabetes mellitus with diabetic peripheral angiopathy without gangrene; K21.9 Gastro-esophageal reflux disease without esophagitis; E87.6 Hypokalemia; F32.A Depression, unspecified; I25.2 Old myocardial infarction; B95.62 Methicillin resistant Staphylococcus aureus infection as the cause of diseases classified elsewhere; G47.30 Sleep apnea, unspecified; Z79.899 Other long term (current) drug therapy; Z79.02 Long term (current) use of antithrombotics/antiplatelets; Z79.82 Long term (current) use of aspirin
CPT/HCPCS: 0012A; 36415; 71046; 74018; 80048; 80202; 81001; 82962; 85025; 87040; 87086; 87426; 87633; 87635; 91301; 92526; 97110; 97162; 97166; 97530; 97535; 97802; J2185; J7030; J7040; J7050; U0005; A4216; U0003

== ENCOUNTER 2021-08-20 06:26 | Day surgery (SDC) | payer MEDICARE, SELFPAY ==
--- NOTE | 2021-08-20 08:36 | OP.PCM_ITS ---
Problems Associated Problem List Diagnoses (1) PAD (peripheral artery disease): Report of Operation Date of Procedure: 08/20/21 Pre-Operative Diagnosis: PAD with nonhealing wound Post-Operative Diagnosis: The same Surgery/Procedure Performed:: 1. Ultrasound-guided access retrograde right common femoral artery. 2. Left lower extremity angiogram with catheter placed in the third order anterior tibial artery. 3. Balloon angioplasty of the popliteal into the proximal anterior tibial artery with a 3 mm balloon. 4. Closure with Star close Surgeon: Henry Aguilar Type of Anesthesia: IV Sedation Description of Procedure: Patient brought to the Computer Network Specialist. Underwent appropriate timeout consent. Underwent sedation. Was prepped and draped in a sterile fashion. We did ultrasound-guided access retrograde right common femoral artery. Put a Glidewire up and then a 5 Nepalese sheath. Get up and over the bifurcation. Gave 5000 units of heparin. We did an angiogram from the left iliac artery. This showed the common femoral artery, the profunda were widely patent. Femoral artery had some mild narrowing throughout but was patent down. We imaged distally in the popliteal had some mild stenosis but was patent to the below the knee. We brought in a long 6 Nepalese sheath. We imaged below the knee. Showed the posterior tibial and peroneal artery are essentially occluded throughout. There is a large collaterals filling down this part of the calf to the ankle. The anterior tibial artery was small and diseased proximally and then occluded. There was a very large collateral filling the mid anterior tibial artery. This was then patent with flow into the foot. Using the quick cross and Glidewire we try to get through the [place] anterior tibial artery but were unable to get down through. We did not want to lose that large collateral. We got the wire into the collateral ballooned right up to the junction and through the proximal anterior tibial artery with a 3 mm balloon for over 2 and half minutes. Completion angiogram was markedly improved with much better flow through this collaterals well down the leg. We then removed out the sheath deployed a Star close with good hemostasis. Brought to recovery stable condition. Sedation: This 71-year-old female underwent moderate sedation given by Dr. Henry Aguilar. She was monitored EKG blood pressure and pulse ox for over the 30 minutes of the procedure.
[2021-08-20 10:11] LABS: Bedside Glucose 77 mg/dL (70-110)
== END 2021-08-20 12:50 ==
PROVIDERS: PCP Family Medicine Geriatric Medicine; Referring Provider Surgery Vascular Surgery; Visit Provider Surgery Vascular Surgery
DX: I73.9 Peripheral vascular disease, unspecified (principal); E11.9 Type 2 diabetes mellitus without complications; Z79.4 Long term (current) use of insulin; Z86.73 Personal history of transient ischemic attack (TIA), and cerebral infarction without residual deficits; I25.2 Old myocardial infarction; Z89.422 Acquired absence of other left toe(s); Z95.5 Presence of coronary angioplasty implant and graft; Z95.1 Presence of aortocoronary bypass graft; Z86.718 Personal history of other venous thrombosis and embolism
CPT/HCPCS: 36245; 37228; 75710; 76937; 82962; 99152; 99153; J7040; Q9967; C1725; C1760; C1769; C1887; C1894

== ENCOUNTER 2021-09-24 10:25 | Outpatient (RCR) | payer MEDICARE, SELFPAY ==
[2021-09-24 10:49] VITALS: BMI 36.6
[2021-09-24 11:00] VITALS: BP 140/51; PULSE 61; RESP 18; TEMP 36.2; BMI 36.6
--- NOTE | 2021-09-24 12:36 | PCM.WC.PN ---
History of Present Illness Date of Service: 09/24/21 Chief Complaint: Diabetic left heel ulcer with osteomyelitis History of Wound: This 71-year-old female following up for left transmetatarsal amputation for treatment of gangrene and osteomyelitis of limb threatening infection that was performed at [facility] on 08-08-21. She is also following up for anterior left ankle and posterior left leg ulcers. She has been residing at [facility]. She also recently had vascular surgery intervention and continues on Plavix. She is taking nutritional supplementation. She has been having the dressing changed daily with Santyl. She is also offloading has a special pillow to assist with this. She denies worsening pain status, fever, chill, nausea, vomiting. Progress of Wound: Healed transmetatarsal amputation, left Improving other left limb ulcers Objective Data Objective Data Vital Signs: Vital Signs Temp Pulse Resp BP 97.1 F L 61 18 140/51 H 09/24/21 11:00 09/24/21 11:00 09/24/21 11:00 09/24/21 11:00 Weight: 90.904 kg Body Mass Index (BMI) 36.6 Physical Exam Const alert, oriented x3 and no apparent distress Extremity Extremity Narrative: Left foot TMA with lateral incision site wound site is healed with full epithelialization without gapping wound drainage or necrosis. This is a healed cicatrix at this time. There is healing anterior ankle ulcer down to subcutaneous tissue (decreased size) and no longer exposed tendon, and also healing posterior distal leg ulcer down to subcutaneous tissue with no evidence of infection to these ulcer sites, margins viable, no malodor. This mainly has a granular base and there is a scant area of fibrous tissue. There is no longer any eschar or deep tissue exposure. There is no crepitus, no visible abscess noted to the left foot, ankle or leg. Decreased sensation to the left foot c/w chronic peripheral neuropathy, no evidence of acute ischemia to the bilateral foot or ankle, no evidence of charcot neuroarthropathy or compartment syndrome either. Reduced palpable pulse left. Lower extremity edema mild Debridement Note Debridement Note Wound debrided: Anterior ankle and posterior leg; left Wound Grade/Stage: 2,1 respectively Type of Debridement: Excisional debridement Anesthesia Used: 4% Lidocaine Solution Depth: in the subcutaneous layer Percentage of wound debrided: 100 Instrument Used: #15 blade Tissue Removed: fibrous, devitalized subcutaneous, biofilm, slough Severity: Fat Layer Exposed Amount of bleeding with debridement: Mild Bleeding Controlled with: Pressure Patient tolerated procedure: Patient tolerated procedure well Post-Debridement Measurements and Additional Note: Post-Debridement Measurements/Treatment WC - Nurse 1 - General Ulcer Assessment Start: 09/24/21 10:32 Freq: Status: Active Protocol: MARILIA Activity Type Activity Date Activity User E-Sign Co-Sign Detail Recorded Client Recorded Date Recorded By Document 09/24/21 10:49 RB [id number] 09/24/21 11:00 RB Document 09/24/21 11:00 RB [id number] 09/24/21 11:05 RB 09/24/21 09/24/21 10:49 11:00 WC - Today's Visit Information Type of service Initial Visit Initial Visit Arrival Mode Stretcher Stretcher Transfer Assistance None Manual Patient Identification Verified (Name & Yes ) Patient Requires Transmission-Based No No Precautions Height and Weight Height 5 ft 2 in Weight 90.904 kg Weight in Pounds 200.4 lbs Body Mass Index (BMI) 36.6 36.6 BMI Classification Obese Obese BSA - Pedro 1.91 Vital Signs Temperature (97.8 F-99.1 F) 97.1 F L Temperature Source Temporal Pulse Rate (60-100) 61 Pulse Location Monitor Respiratory Rate (12-18) 18 Respiratory rate source Observation Blood Pressure (90/60-120/80) 140/51 H Blood Pressure Mean (mm Hg) 80 Source Monitor Position Semi-Fowlers Blood Pressure Location Left Arm History Since Last Visit- (Skip if this is Patient's initial visit) Have you changed medications since your No last visit? Any new allergies or adverse reactions No Had a fall/change in ADL's that may No increase risk of falls Have you been in the hospital since your No last visit? Has dressing in place as prescribed Yes Has compression in place as prescribed No Has offloadiing in place as prescribed Yes Experienced any changes in pain level or No management Left Footwear [place]/Foam Right Footwear [place]/Foam Pain Scale: 0-10 Numeric Is Patient Pain Free? Yes SETH - Nurse 1 - General Ulcer Measurement Start: 09/24/21 10:32 Freq: Status: Active Protocol: Activity Type Activity Date Activity User E-Sign Co-Sign Detail Recorded Client Recorded Date Recorded By Document 09/24/21 11:00 RB [id number] 09/24/21 11:05 RB 09/24/21 11:00 Wound Center Nurse 1 3. L lateral LE -Combined with other wound No -Current Size (cm) - Length 6 -Current Size (cm) - Width 1 -Current Size (cm) - Depth 0.1 -Total Square Cm 6 -Tunneling No -Undermining/Tunneling No -Circular Undermining No -Exudate Amt Medium -Exudate Type Serosanguineous -Wound Margin Distinct, Outline Attached -Granulation Amt Medium (34-66%) -Granulation Quality Kennard -Slough/Fibrin Yes -Necrosis Amt Small (1-33%) -Necrotic Tissue Type Adherent Slough -Structure Exposed N/A -Texture (Frances-wound Skin Appearance) Not Assessed -Moisture (Frances-wound Skin Appearance) Assessed -Color (Frances-wound Skin Appearance) Assessed -Temperature (Frances-wound Skin No Abnormality Appearance) (Pt Warm) -Tenderness on Palpation (Frances-wound No Skin Appearance) -Ulcer Cleansing Wound Cleanser -Foul Odor after Cleansing No -Anesthetic Used 5% Lidocaine Gel 2. L dorsal foot -Combined with other wound No -Current Size (cm) - Length 2.5 -Current Size (cm) - Width 3.2 -Current Size (cm) - Depth 0.1 -Total Square Cm 8.00 -Tunneling No -Undermining/Tunneling No -Circular Undermining No -Exudate Amt Medium -Exudate Type Serosanguineous -Wound Margin Distinct, Outline Attached -Granulation Amt Medium (34-66%) -Granulation Quality Kennard -Slough/Fibrin Yes -Necrosis Amt Medium (34-66%) -Necrotic Tissue Type Adherent Slough -Structure Exposed N/A -Texture (Frances-wound Skin Appearance) Assessed -Moisture (Frances-wound Skin Appearance) Assessed -Color (Frances-wound Skin Appearance) Assessed -Temperature (Frances-wound Skin No Abnormality Appearance) (Pt Warm) -Tenderness on Palpation (Frances-wound No Skin Appearance) -Ulcer Cleansing Wound Cleanser -Foul Odor after Cleansing Yes, Due to Product Use -Anesthetic Used 5% Lidocaine Gel WC - Nurse 2 - General Ulcer CM Notes Start: 09/24/21 10:32 Freq: Status: Active Protocol: Activity Type Activity Date Activity User E-Sign Co-Sign Detail Recorded Client Recorded Date Recorded By Document 09/24/21 11:28 ALFREDO [id number] 09/24/21 11:32 ALFREDO 09/24/21 11:28 Wound Center Nurse 2 3. L lateral LE -Time 11:29 -Correct Patient Yes -Correct Side, Site, Position Yes -Correct Procedure Yes -Procedure Performed Yes -Type of Procedure Debridement -Clinical Debridement Subcutaneous -Tissue Removed Subcutaneous -Post Debridement (cm) - Length 6.1 -Post Debridement (cm) - Width 1 -Post Debridement (cm) - Depth 0.1 -Total Square (Post) (cm) 6.1 -Area of Debridement (cm) - Length 6.1 -Area of Debridement (cm) - Width 1 -Total Square (Area) (cm) 6.1 -Tunneling No -Undermining/Tunneling No -Circular Undermining No -Wound/Ulcer Outcome Not Healed -Ulcer Cleansing Rinsed/ Irrigated with Saline -Foul Odor after Cleansing No -Bioengineered Tissue No -Bleeding Controlled with Pressure -Offloading No -Treatment Response Procedure Tolerated Well -Debridement - Open, 1st 20sq cm No -Debridement - Subq, 1st 20sq cm Yes 2. L dorsal foot -Time 11:29 -Correct Patient Yes -Correct Side, Site, Position Yes -Correct Procedure Yes -Procedure Performed Yes -Type of Procedure Debridement -Clinical Debridement Subcutaneous -Tissue Removed Subcutaneous -Post Debridement (cm) - Length 2.6 -Post Debridement (cm) - Width 3.3 -Post Debridement (cm) - Depth 0.1 -Total Square (Post) (cm) 8.58 -Area of Debridement (cm) - Length 2.6 -Area of Debridement (cm) - Width 3.3 -Total Square (Area) (cm) 8.58 -Tunneling No -Undermining/Tunneling No -Circular Undermining No -Wound/Ulcer Outcome Not Healed -Ulcer Cleansing Rinsed/ Irrigated with Saline -Bioengineered Tissue No -Bleeding Controlled with Pressure -Offloading No -Treatment Response Procedure Tolerated Well -Debridement - Subq, 1st 20sq cm No Pain Scale: 0-10 Numeric Is Patient Pain Free? 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 Debridement was performed today as noted in the clinical panel to all of the ulcer sites. She resides at [facility] and may be eligible for discharge home with family (daughter) next week. She is doing very well. The following work up and care recommendations were made: Dressing: Change daily with Santyl applied nickel thickness and cover with gauze to anterior ankle and posterior left leg Wash: Antibacterial soap and water Tissue growth optimization: She would benefit from application of advanced wound healing product, epi fix. Prior authorization will be initiated. This is medically necessary for limb salvage. She is high risk for continued delayed healing and limb loss due to her comorbidities. She is already been on a comprehensive wound healing management plan. Offload: Continue offloading pillow to take pressure off of the back of her leg in front of her ankle. Vascular: She is under the care of Dr. Aguilar, vascular surgeon. On 08-20-21 she had catheterization in place to the anterior tibial artery and a balloon angioplasty performed in the popliteal into the proximal anterior tib. To follow-up as scheduled. Is noted she does need to schedule follow-up appointment. To continue on Plavix. Edema: Alejandro wrap applied Infection: This has resolved and her surgical site has also healed. She was previously under the care of infectious disease specialist. Wound cx and surg cx with MRSA, raoultella, citrobacter. Clearance cx with some MRSA and anaerobes. Superficial raoultella was R to cefepime, but surg cx was S and clearance cx was neg for GNR. She was on vanc/meropenem with stop date 09/19/21. There is resolution of local and systemic signs of illness at this time Pain: This is not present because of her neuropathy. Surgically, she had a transmetatarsal amputation and debridement of the ulcers on 08-08-21 at [facility]. Host factors: She is diabetic and her hemoglobin A1c was recently improved to 6.9% (08-07-21). To continue to work with primary care physician on medical management. I recommend nutritional supplementation optimize healing. She is on Vlad and Glucerna. I answered all the patient's questions. To return to the wound healing center in 1 week or call sooner if the patient has any questions or concerns. Note: Peerform speech recognition account resolution specialist software was used to create portions of this document. Sound-alike and misspelled words, as well as other account resolution specialist errors may be contained in the documentation. 24 minutes was spent on this encounter. This included face to face and non face to face care including preparing for the visit, reviewing the history, performing the exam, counseling and providing education to the patient, family, or caregiver, ordering medications/test/ procedures if indicated as documented, communicating with other healthcare providers, documenting information in the medical record, interpreting / sharing this information when indicated as documented, and care coordination.
== END 2021-10-07 23:59 ==
LOC: WC 10:25
PROVIDERS: PCP Family Medicine Geriatric Medicine; Visit Provider Podiatrist
DX: L97.922 Non-pressure chronic ulcer of unspecified part of left lower leg with fat layer exposed (principal); L97.923 Non-pressure chronic ulcer of unspecified part of left lower leg with necrosis of muscle; I73.9 Peripheral vascular disease, unspecified; R60.0 Localized edema; E11.42 Type 2 diabetes mellitus with diabetic polyneuropathy; E46 Unspecified protein-calorie malnutrition; E11.51 Type 2 diabetes mellitus with diabetic peripheral angiopathy without gangrene; E11.69 Type 2 diabetes mellitus with other specified complication; Z79.02 Long term (current) use of antithrombotics/antiplatelets
CPT/HCPCS: 11042; 99213; G0463

== ENCOUNTER → 2021-10-06 16:48 | Outpatient (CLI) | payer MEDICARE, SELFPAY ==
[2021-10-06 17:30] LABS: Absolute Neutrophil Count 3.9 X10^3/uL (2.0-7.7); Basophil# 0.03 X10^3/uL; Basophil% 0.5 % (0-1); Eosinophils% 6.5 % (0-5); Hematocrit 27.8 % (37-47); Hemoglobin 9.2 g/dL (12.0-15.0); Lymphocyte % 22.7 % (19-41); Mean Corp Hgb Conc 33.1 g/dL (32-36); Mean Corpuscular Hgb 28.8 pg (27.0-32.0); Mean Corpuscular Volume 87.1 fL (81-99); Mean Platelet Vol. 9.7 fl (6.2-12.0); Monocyte# 0.44 X10^3/uL; Monocyte% 7.1 % (0-10); NRBC Flagged by Analyzer 0 % (0-5); Neutrophil # 3.88 X10^3/uL (2.7-7.7); Neutrophil % 62.9 % (47-70); Platelet Count 270 K/mm3 (150-450); RBC Distribution Width CV 14.9 % (11.6-14.6); RBC Distribution Width SD 47.2 fl (35.1-43.9); Red Blood Count 3.19 M/mm3 (4.2-5.4); White Blood Count 6.2 K/mm3 (4.4-11.0)
[2021-10-06 18:37] LABS: ALB/GLOB Ratio 0.7 RATIO (0.9-2.4); AST(SGOT) 18 U/L (15-37); Alanine Aminotransfer ALT/SGPT 28 U/L (13-56); Albumin, Serum 2.9 g/dL (3.2-5.0); Alkaline Phosphatase 72 U/L (45-117); Anion Gap 8 (5-15); BUN 93 mg/dL (7-18); BUN/Creat Ratio 53.4 RATIO (10-20); Calcium,Total 9.4 mg/dL (8.5-10.1); Chloride 110 mmol/L (98-107); Creatinine, Serum 1.74 mg/dL (0.55-1.02); EST Glomerular Filtration Rate 31 mL/min (>60); Est Glom Filt Rate - Afr Amer 37 mL/min (>60); Globulin 4.2 g/dL (2.2-4.2); Glucose 175 mg/dL (74-106); Potassium 4.9 mmol/L (3.5-5.1); Protein, Total 7.1 g/dL (6.4-8.2); Sodium Level 138 mmol/L (136-145); Thyroid Stim Hormone (TSH) < 0.01 uIU/mL (0.358-3.74)
[2021-10-07 08:57] LABS: Hepatitis C Antibody Non-Reactive (Nonreactive); Vitamin D,25 Hydroxy 29.1 ng/mL
== END ==
PROVIDERS: PCP Family Medicine Geriatric Medicine; Visit Provider Family Medicine Geriatric Medicine
DX: I10 Essential (primary) hypertension (principal); E55.9 Vitamin D deficiency, unspecified; Z13.89 Encounter for screening for other disorder
CPT/HCPCS: 36415; 80053; 82306; 84443; 85025; 86803

== ENCOUNTER → 2021-10-07 16:39 | Outpatient (CLI) | payer MEDICARE, SELFPAY ==
[2021-10-07 17:11] LABS: Absolute Lymphocyte Count 1.08 X10^3/uL (0.83-4.51); Absolute Neutrophil Count 5.1 X10^3/uL (2.0-7.7); Basophil# 0.03 X10^3/uL; Basophil% 0.4 % (0-1); Eosinophil# 0.35 X10^3/uL; Hematocrit 27.8 % (37-47); Hemoglobin 9.5 g/dL (12.0-15.0); Lymphocyte # 1.08 X10^3/ul (0.83-4.51); Lymphocyte % 15.4 % (19-41); Mean Corp Hgb Conc 34.2 g/dL (32-36); Mean Corpuscular Hgb 29.4 pg (27.0-32.0); Mean Corpuscular Volume 86.1 fL (81-99); Mean Platelet Vol. 9.8 fl (6.2-12.0); Monocyte# 0.45 X10^3/uL; Monocyte% 6.4 % (0-10); NRBC Flagged by Analyzer 0 % (0-5); Neutrophil # 5.07 X10^3/uL (2.7-7.7); Neutrophil % 72.5 % (47-70); Platelet Count 259 K/mm3 (150-450); RBC Distribution Width CV 14.8 % (11.6-14.6); RBC Distribution Width SD 46.4 fl (35.1-43.9); RET-HE 33.3 pg (30-35); Red Blood Count 3.23 M/mm3 (4.2-5.4); Reticulocyte Count 2.68 % (0.5-1.5)
[2021-10-07 17:54] LABS: Vitamin B12 746 pg/mL (211-911)
[2021-10-07 18:02] LABS: Ferritin 163 ng/mL (8-252); Iron 45 ug/dL (50-170); Iron Binding Capacity,Total 226 ug/dL (250-450); PERCENT IRON SATURATION 19.9 % (15.0-55.0)
== END ==
PROVIDERS: PCP Family Medicine Geriatric Medicine; Visit Provider Family Medicine Geriatric Medicine
DX: D64.9 Anemia, unspecified (principal)
CPT/HCPCS: 36415; 82607; 82728; 82746; 83540; 83550; 85025; 85045

== ENCOUNTER 2021-11-05 10:00 | Outpatient (RCR) | payer MEDICARE, MEDICAID, SELFPAY ==
[2021-10-08 00:37] VITALS: BP 140/51; PULSE 61; RESP 18; TEMP 36.2; BMI 36.6
[2021-10-22 13:12] VITALS: BP 179/65; PULSE 55; RESP 16; TEMP 36.3; BMI 36.6
--- NOTE | 2021-10-22 15:30 | PN.PCM_ITS ---
History of Present Illness Date of Service: 10/22/21 Chief Complaint: Diabetic left heel ulcer with osteomyelitis History of Wound: This 71-year-old female following up for left transmetatarsal amputation for treatment of gangrene and osteomyelitis of limb threatening infection that was performed at [facility] on 08-08-21. She is also following up for anterior left ankle and posterior left leg ulcers. She has been residing at [facility]. She also recently had vascular surgery intervention and continues on Plavix. She is taking nutritional supplementation. She has been having the dressing changed daily with Santyl. She is also offloading has a special pillow to assist with this. She denies worsening pain status, fever, chill, nausea, vomiting. She is here today with her granddaughter and is ready for epi fix application. Progress of Wound: Improving Objective Data Objective Data Vital Signs: Vital Signs Temp Pulse Resp BP 97.4 F L 55 L 16 179/65 H 10/22/21 13:12 10/22/21 13:12 10/22/21 13:12 10/22/21 13:12 Oxygen Delivery Method Room Air Weight: 90.904 kg Body Mass Index (BMI) 36.6 Physical Exam Const alert, oriented x3 and no apparent distress Extremity Extremity Narrative: Left foot Transmetatarsal amputation with lateral incision site wound site is healed with full epithelialization without gapping wound drainage or necrosis. This is a healed cicatrix at this time. There is healing anterior ankle ulcer down to subcutaneous tissue (decreased size) and no longer exposed tendon, and also healing posterior distal leg ulcer down to subcutaneous tissue with no evidence of infection to these ulcer sites, margins viable, no malodor. This mainly has a granular base and there is a scant area of fibrous tissue. There is no longer any eschar or deep tissue exposure. There is no crepitus, no visible abscess noted to the left foot, ankle or leg. Decreased sensation to the left foot c/w chronic peripheral neuropathy, no evidence of acute ischemia to the bilateral foot or ankle, no evidence of charcot neuroarthropathy or compartment syndrome either. Reduced palpable pulse left. Lower extremity edema mild Debridement Note Debridement Note Wound debrided: left anterior ankle, left posterior lateral leg Wound Grade/Stage: 2,2 Type of Debridement: Excisional debridement Anesthesia Used: 4% Lidocaine Solution Depth: in the subcutaneous layer Percentage of wound debrided: 100 Instrument Used: #15 blade Tissue Removed: fibrous, devitalized subcutaneous, biofilm, slough Severity: Fat Layer Exposed Amount of bleeding with debridement: Mild Bleeding Controlled with: Pressure Patient tolerated procedure: Patient tolerated procedure well Post-Debridement Measurements and Additional Note: Post-Debridement Measurements/Treatment WC - Nurse 1 - General Ulcer Assessment Start: 10/22/21 13:11 Freq: Status: Active Protocol: MARILIA Activity Type Activity Date Activity User E-Sign Co-Sign Detail Recorded Client Recorded Date Recorded By Document 10/22/21 13:12 [facility] [id number] 10/22/21 13:24 [facility] 10/22/21 13:12 WC - Today's Visit Information Type of service Follow-up Visit (Physician/[employer]PAR[employer] ) Arrival Mode Wheelchair Transfer Assistance None Accompanied by GRAND LIANA Patient Identification Verified (Name & Yes ) Patient Requires Transmission-Based No Precautions Height and Weight Body Mass Index (BMI) 36.6 BMI Classification Obese Vital Signs Temperature (97.8 F-99.1 F) 97.4 F L Temperature Source Temporal Pulse Rate (60-100) 55 L Pulse Location Monitor Respiratory Rate (12-18) 16 Respiratory rate source Observation Oxygen Delivery Method Room Air Blood Pressure (90/60-120/80) 179/65 H Blood Pressure Mean (mm Hg) 103 Source Monitor Position Sitting Blood Pressure Location Right Arm History Since Last Visit- (Skip if this is Patient's initial visit) Have you changed medications since your No last visit? Any new allergies or adverse reactions No Had a fall/change in ADL's that may No increase risk of falls Signs or symptoms of abuse and/or No neglect since last visit Have you been in the hospital since your Yes last visit? Pain Scale: 0-10 Numeric Is Patient Pain Free? Yes - Nurse 1 - General Ulcer Measurement Start: 10/22/21 13:11 Freq: Status: Active Protocol: Activity Type Activity Date Activity User E-Sign Co-Sign Detail Recorded Client Recorded Date Recorded By Document 10/22/21 13:12 [facility] [id number] 10/22/21 13:24 [facility] 10/22/21 13:12 Wound Center Nurse 1 3. L lateral LE -Combined with other wound No -Current Size (cm) - Length 7.8 -Current Size (cm) - Width 2 -Current Size (cm) - Depth 0.1 -Total Square Cm 15.6 -Date of Last Picture (Recall this 10/22/21 field) -Photo Taken Yes -Epithelialization None Present -Tunneling No -Undermining/Tunneling No -Circular Undermining No -Exudate Amt Medium -Exudate Type Serosanguineous -Wound Margin Distinct, Outline Attached -Granulation Amt Large (67-100%) -Granulation Quality Red -Slough/Fibrin Yes -Necrosis Amt Small (1-33%) -Necrotic Tissue Type Adherent Slough -Texture (Frances-wound Skin Appearance) Assessed, Scarring -Moisture (Frances-wound Skin Appearance) Assessed,Dry/ Scaly -Color (Frances-wound Skin Appearance) Assessed -Temperature (Frances-wound Skin No Abnormality Appearance) (Pt Warm) -Tenderness on Palpation (Frances-wound No Skin Appearance) -Ulcer Cleansing Soap and Water -Foul Odor after Cleansing No -Anesthetic Used 4% Lidocaine Solution 2. L dorsal foot -Combined with other wound No -Current Size (cm) - Length 2.1 -Current Size (cm) - Width 3.4 -Current Size (cm) - Depth 0.1 -Total Square Cm 7.14 -Date of Last Picture (Recall this 10/22/21 field) -Photo Taken Yes -Epithelialization None Present -Tunneling No -Undermining/Tunneling No -Circular Undermining No -Exudate Amt Medium -Exudate Type Serosanguineous -Wound Margin Distinct, Outline Attached -Granulation Amt Large (67-100%) -Granulation Quality Red -Slough/Fibrin Yes -Necrosis Amt Small (1-33%) -Necrotic Tissue Type Adherent Slough -Texture (Frances-wound Skin Appearance) Assessed, Scarring -Moisture (Frances-wound Skin Appearance) Assessed,Dry/ Scaly -Color (Frances-wound Skin Appearance) Assessed -Temperature (Frances-wound Skin No Abnormality Appearance) (Pt Warm) -Tenderness on Palpation (Frances-wound No Skin Appearance) -Ulcer Cleansing Not Cleansed -Foul Odor after Cleansing No -Anesthetic Used 4% Lidocaine Solution WC - Nurse 2 - General Ulcer CM Notes Start: 10/22/21 13:11 Freq: Status: Active Protocol: Activity Type Activity Date Activity User E-Sign Co-Sign Detail Recorded Client Recorded Date Recorded By Document 10/22/21 13:42 [id number] 10/22/21 13:45 [id number] 10/22/21 13:42 Wound Center Nurse 2 3. L lateral LE -Time 13:43 -Correct Patient Yes -Correct Side, Site, Position Yes -Correct Procedure Yes -Procedure Performed Yes -Type of Procedure Debridement -Clinical Debridement Subcutaneous -Tissue Removed Subcutaneous -Post Debridement (cm) - Length 7.8 -Post Debridement (cm) - Width 2.1 -Post Debridement (cm) - Depth 0.1 -Total Square (Post) (cm) 16.38 -Area of Debridement (cm) - Length 7.8 -Area of Debridement (cm) - Width 2.1 -Total Square (Area) (cm) 16.38 -Tunneling No -Undermining/Tunneling No -Circular Undermining No -Wound/Ulcer Outcome Not Healed -Ulcer Cleansing Rinsed/ Irrigated with Saline -Foul Odor after Cleansing No -Bioengineered Tissue No -Bleeding Controlled with Pressure -Offloading No -Treatment Response Procedure Tolerated Well -Debridement - Subq, 1st 20sq cm Yes 2. L dorsal foot -Time 13:44 -Correct Patient Yes -Correct Side, Site, Position Yes -Correct Procedure Yes -Procedure Performed Yes -Type of Procedure Debridement -Clinical Debridement Subcutaneous -Tissue Removed Subcutaneous -Post Debridement (cm) - Length 2.2 -Post Debridement (cm) - Width 3.4 -Post Debridement (cm) - Depth 0.1 -Total Square (Post) (cm) 7.48 -Area of Debridement (cm) - Length 2.2 -Area of Debridement (cm) - Width 3.4 -Total Square (Area) (cm) 7.48 -Tunneling No -Undermining/Tunneling No -Circular Undermining No -Wound/Ulcer Outcome Not Healed -Ulcer Cleansing Rinsed/ Irrigated with Saline -Foul Odor after Cleansing No -Bioengineered Tissue Yes -Type of Bioengineered Tissue Epifix Mesh -Expiration Date 07/09/26 -Product Lot Number [id number] -Percent Used 100 -Lot number of Saline Used [id number] -Bleeding Controlled with Pressure -Offloading No -Treatment Response Procedure Tolerated Well -Debridement - Subq, 1st 20sq cm No -Apply Skin Sub - 1st 25 sq cm - Feet 1 -Epifix Mesh (per sq cm) 11 Pain Scale: 0-10 Numeric Is Patient Pain Free? 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 Debridement was performed today as noted in the clinical panel to all of the ulcer sites. She resides at [facility] and may be eligible for discharge home with family (daughter) next week. She is doing very well. The following work up and care recommendations were made: Dressing: Change daily with Santyl applied nickel thickness and cover with gauze to anterior ankle and posterior left leg Wash: Antibacterial soap and water Tissue growth optimization: She would benefit from application of advanced wound healing product, epi fix. This is medically necessary for limb salvage. She is high risk for continued delayed healing and limb loss due to her comorbidities. She is already been on a comprehensive wound healing management plan. This was applied today to the anterior ankle according standard protocol after verbal consent was obtained. She tolerated this well. This was secured in place with a wound veil and Steri-Strips. She is advised keep this clean, dry, and intact until follow-up visit. Offload: Continue offloading pillow to take pressure off of the back of her leg in front of her ankle. Vascular: She is under the care of Dr. Aguilar, vascular surgeon. On 08-20-21 she had catheterization in place to the anterior tibial artery and a balloon angioplasty performed in the popliteal into the proximal anterior tib. To follow-up as scheduled. Additional intervention is not planned at this time and she reports she followed with Dr. Aguilar this morning who wrote recommended monitoring her staged improvement. To continue on Plavix. Edema: Alejandro wrap applied Infection: This has resolved and her surgical site has also healed. She was previously under the care of infectious disease specialist. Wound cx and surg cx with MRSA, raoultella, citrobacter. Clearance cx with some MRSA and anaerobes. Superficial raoultella was R to cefepime, but surg cx was S and clearance cx was neg for GNR. She was on vanc/meropenem with stop date 09/19/21. There is resolution of local and systemic signs of illness at this time Pain: This is not present because of her neuropathy. Surgically, she had a transmetatarsal amputation and debridement of the ulcers on 08-08-21 at [facility]. Host factors: She is diabetic and her hemoglobin A1c was recently improved to 6.9% (08-07-21). To continue to work with primary care physician on medical management. I recommend nutritional supplementation optimize healing. She is on Vlad and Glucerna. I answered all the patient's questions. To return to the wound healing center in 1 week or call sooner if the patient has any questions or concerns. Note: [employer] speech recognition hematologist oncologist software was used to create portions of this document. Sound-alike and misspelled words, as well as other hematologist oncologist errors may be contained in the documentation.
[2021-10-29 10:39] VITALS: BP 150/43; PULSE 59; RESP 16; TEMP 35.7; BMI 36.6
--- NOTE | 2021-10-29 13:00 | PCM.WC.HP ---
History of Present Illness Date of Service: 10/29/21 Chief Complaint: Diabetic left heel ulcer with osteomyelitis History of Wound: This 71-year-old female following up for left transmetatarsal amputation for treatment of gangrene and osteomyelitis of limb threatening infection that was performed at [facility] on 08-08-21. She is also following up for anterior left ankle and posterior left leg ulcers. She has been residing at [facility]. She also recently had vascular surgery intervention and continues on Plavix. She is taking nutritional supplementation. She has been having the dressing changed daily with Santyl. She is also offloading has a special pillow to assist with this. She denies worsening pain status, fever, chill, nausea, vomiting. She is here today with her granddaughter and is ready for epi fix application. Progress of Wound: Improving [facility] Medical History Cellulitis of left lower limb Chest pain Chronic headaches Chronic ulcer of left foot with necrosis of muscle Current use of insulin Depression Diabetic foot infection Diabetic nephropathy Difficulty chewing Difficulty swallowing DM (diabetes mellitus), type 2, uncontrolled DVT (deep venous thrombosis) Dyspnea High cholesterol History of stress test Irregular heartbeat Left foot infection Malnutrition Myocardial infarction Paralysis Peripheral vascular disease Post-menopausal Renal disease Restless legs Sleep apnea Status post amputation of toe of left foot Stroke Thyroiditis Type 2 diabetes mellitus with diabetic foot infection Ulcer Ulcer of left foot due to type 2 diabetes mellitus Home Medications Levemir FlexTouch U-100 Insuln 5 units SUBCUT DAILY 08/07/21 [History Last Taken Unknown] amlodipine 10 mg PO DAILY 08/07/21 [History Last Taken Unknown] aspirin 81 mg PO DAILY 08/07/21 [History Last Taken Unknown] levothyroxine 200 mcg PO DAILY@0600 08/07/21 [History Last Taken Unknown] metoprolol tartrate 25 mg PO BID 08/07/21 [History Last Taken Unknown] pantoprazole 40 mg PO DAILY 08/07/21 [History Last Taken Unknown] potassium chloride 10 meq PO DAILY 08/07/21 [History Last Taken Unknown] atorvastatin 80 mg PO QHS 08/12/21 [History Last Taken Unknown] clopidogrel 75 mg PO DAILY 08/12/21 [History Last Taken Unknown] polyethylene glycol 3350 17 g PO DAILY 08/12/21 [History Last Taken Unknown] meropenem 1 g IV Q12H 22 Days #44 ea 08/28/21 [Rx Last Taken Unknown] vancomycin in 0.9 % sodium chl 500 mg IV Q24H 22 Days #22 dose 08/28/21 [Rx Last Taken Unknown] acetaminophen 1,000 mg PO Q6H PRN PRN #0 tab 08/29/21 [Rx Last Taken Unknown] edstw-czqb-IlIFN-fhynbs-kw-hac [Vlad (with collagen)] 1 packet PO BIDCM #0 ea 08/29/21 [Rx Last Taken Unknown] bisacodyl 10 mg PO DAILY PRN #0 tab 08/29/21 [Rx Last Taken Unknown] citalopram 10 mg PO DAILY #0 tab 08/29/21 [Rx Last Taken Unknown] heparin, porcine (PF) 50 units IV UD PRN #0 ml 08/29/21 [Rx Last Taken Unknown] menthol-zinc oxide [Calmoseptine] 1 applic TOPICAL BID #0 g 08/29/21 [Rx Last Taken Unknown] meropenem 1 g IV Q12 #0 ea 08/29/21 [Rx Last Taken Unknown] nystatin [Nyamyc] 1 applic TOPICAL BID #0 g 08/29/21 [Rx Last Taken Unknown] oxycodone 5 mg PO Q4H PRN PRN 3 Days #18 tab 08/29/21 [Rx Last Taken Unknown] sennosides-docusate sodium [Stool Softener-Stimulant Laxat] 1 tab PO BID #0 tab 08/29/21 [Rx Last Taken Unknown] sodium chloride 0.9 % (flush) [BD PosiFlush Normal Saline 0.9] 10 - 40 ml IV UD PRN #0 ml 08/29/21 [Rx Last Taken Unknown] sodium chloride 0.9 % (flush) [Normal Saline Flush] 10 - 40 ml IV UD PRN #0 ml 08/29/21 [Rx Last Taken Unknown] vancomycin in dextrose 5 % 500 mg IV Q24H #0 ml 08/29/21 [Rx Last Taken Unknown] Allergy/AdvReac Type Severity Reaction Status Date / Time baclofen AdvReac Other Verified 08/19/21 08:38 Family History Other Diabetes Heart disease Surgical History History of heart artery stent S/P tubal ligation Status post arterial stent Status post coronary artery bypass graft Status post coronary artery stent placement Status post hysterectomy Status post transmetatarsal amputation of left foot Social History household members: children Smoking Status: Never smoker ROS Constitutional Constitutional: Denies chills, fever(s) or weight gain ENT HEENT: Denies headache(s), nasal congestion or nasal discharge Cardiovascular Cardiovascular: Denies chest pain or palpitations Respiratory/Chest Respiratory/Chest: Denies cough, excessive phlegm production or shortness of breath with exertion Gastrointestinal Gastrointestinal: Denies abdominal pain, nausea or vomiting Genitourinary Genitourinary: Denies dysuria Musculoskeletal Musculoskeletal: Denies joint pain or joint swelling Integumentary Integumentary: Denies rash or wounds Neurologic Neurologic: Denies focal weakness, numbness or tingling Psychiatric Psychiatric: Reports auditory hallucinations; Denies anxiety, depression, homicidal ideation or suicidal ideation Vital Signs Vital Signs Vital Signs: 10/29/21 10:39 Temperature 96.3 F L Temperature Source Temporal Pulse Rate 59 L Respiratory Rate 16 Blood Pressure 150/43 H Blood Pressure Mean 78 Blood Pressure Source Monitor Blood Pressure Position Sitting Blood Pressure Location Right Forearm Oxygen Delivery Method Room Air Weight Weight: 200 lb 6.548 oz Body Mass Index (BMI) 36.6 Physical Exam Const alert, oriented x3 and no apparent distress Extremity Extremity Narrative: Left foot Transmetatarsal amputation with lateral incision site wound site is healed with full epithelialization without gapping wound drainage or necrosis. This is a healed cicatrix at this time. There is healing anterior ankle ulcer down to subcutaneous tissue (decreased size) and no longer exposed tendon, and also healing posterior distal leg ulcer down to subcutaneous tissue with no evidence of infection to these ulcer sites, margins viable, no malodor. This mainly has a granular base and there is a scant area of fibrous tissue. There is no longer any eschar or deep tissue exposure. There is no crepitus, no visible abscess noted to the left foot, ankle or leg. Decreased sensation to the left foot c/w chronic peripheral neuropathy, no evidence of acute ischemia to the bilateral foot or ankle, no evidence of charcot neuroarthropathy or compartment syndrome either. Reduced palpable pulse left. Lower extremity edema mild Debridement Note Debridement Note Wound debrided: Left dorsal foot diabetic ulcer Laterality: Left Type of Debridement: Excisional debridement Anesthesia Used: 5% Lidocaine Gel Depth: Down to and including healthy tissue Percentage of wound debrided: 100 Instrument Used: 7mm curette Tissue Removed: Devitalized tissue and fibrin Severity: Fat Layer Exposed Amount of bleeding with debridement: Mild Bleeding Controlled with: Compression and gauze Patient tolerated procedure: Patient tolerated procedure well Post-Debridement Measurements and Additional Note: Post-Debridement Measurements/Treatment - Nurse 1 - General Ulcer Assessment Start: 10/22/21 13:11 Freq: Status: Active Protocol: MARILIA Activity Type Activity Date Activity User E-Sign Co-Sign Detail Recorded Client Recorded Date Recorded By Document 10/22/21 13:12 [facility] [id number] 10/22/21 13:24 [facility] Document 10/29/21 10:39 [facility] [id number] 10/29/21 10:57 [facility] 10/22/21 10/29/21 13:12 10:39 - Today's Visit Information Type of service Follow-up Visit Follow-up Visit (Physician/BOWLING BALL GRADER (Physician/BOWLING BALL GRADER ) ) Arrival Mode Wheelchair Ambulatory Transfer Assistance None None Accompanied by GRAND LIANA DAUGHTER, GR DAUGHTER Patient Identification Verified (Name & Yes Yes ) Patient Requires Transmission-Based No No Precautions Height and Weight Body Mass Index (BMI) 36.6 36.6 BMI Classification Obese Obese Vital Signs Temperature (97.8 F-99.1 F) 97.4 F L 96.3 F L Temperature Source Temporal Temporal Pulse Rate (60-100) 55 L 59 L Pulse Location Monitor Monitor Respiratory Rate (12-18) 16 16 Respiratory rate source Observation Observation Oxygen Delivery Method Room Air Room Air Blood Pressure (90/60-120/80) 179/65 H 150/43 H Blood Pressure Mean 103 78 Source Monitor Monitor Position Sitting Sitting Blood Pressure Location Right Arm Right Forearm History Since Last Visit- (Skip if this is Patient's initial visit) Have you changed medications since your No last visit? Any new allergies or adverse reactions No Had a fall/change in ADL's that may No increase risk of falls Signs or symptoms of abuse and/or No neglect since last visit Have you been in the hospital since your Yes last visit? Pain Scale: 0-10 Numeric Is Patient Pain Free? Yes Yes WC - Nurse 1 - General Ulcer Measurement Start: 10/22/21 13:11 Freq: Status: Active Protocol: Activity Type Activity Date Activity User E-Sign Co-Sign Detail Recorded Client Recorded Date Recorded By Document 10/22/21 13:12 [facility] [id number] 10/22/21 13:24 BM Document 10/29/21 10:39 [facility] [id number] 10/29/21 10:57 BMF 10/22/21 10/29/21 13:12 10:39 Wound Center Nurse 1 3. L lateral LE -Combined with other wound No No -Current Size (cm) - Length 7.8 2.4 -Current Size (cm) - Width 2 2 -Current Size (cm) - Depth 0.1 0.1 -Total Square Cm 15.6 4.8 -Date of Last Picture (Recall this 10/22/21 field) -Photo Taken Yes No -Epithelialization None Present None Present -Tunneling No No -Undermining/Tunneling No No -Circular Undermining No No -Exudate Amt Medium Medium -Exudate Type Serosanguineous Serosanguineous -Wound Margin Distinct, Distinct, Outline Outline Attached Attached -Granulation Amt Large (67-100%) Large (67-100%) -Granulation Quality Red [place] -Slough/Fibrin Yes Yes -Necrosis Amt Small (1-33%) Small (1-33%) -Necrotic Tissue Type Adherent Slough Adherent Slough -Texture (Frances-wound Skin Appearance) Assessed, Assessed, Scarring Scarring -Moisture (Frances-wound Skin Appearance) Assessed,Dry/ Assessed Scaly -Color (Frances-wound Skin Appearance) Assessed Assessed -Temperature (Frances-wound Skin No Abnormality No Abnormality Appearance) (Pt Warm) (Pt Warm) -Tenderness on Palpation (Frances-wound No No Skin Appearance) -Ulcer Cleansing Soap and Water Soap and Water -Foul Odor after Cleansing No No -Anesthetic Used 4% Lidocaine 4% Lidocaine Solution Solution 2. L dorsal foot -Combined with other wound No No -Current Size (cm) - Length 2.1 2.4 -Current Size (cm) - Width 3.4 3.3 -Current Size (cm) - Depth 0.1 0.1 -Total Square Cm 7.14 7.92 -Date of Last Picture (Recall this 10/22/21 field) -Photo Taken Yes No -Epithelialization None Present Small 1-33% -Tunneling No No -Undermining/Tunneling No No -Circular Undermining No No -Exudate Amt Medium Medium -Exudate Type Serosanguineous Serosanguineous -Wound Margin Distinct, Distinct, Outline Outline Attached Attached -Granulation Amt Large (67-100%) Medium (34-66%) -Granulation Quality Red Red -Slough/Fibrin Yes Yes -Necrosis Amt Small (1-33%) Medium (34-66%) -Necrotic Tissue Type Adherent Slough Adherent Slough -Texture (Frances-wound Skin Appearance) Assessed, Assessed, Scarring Scarring -Moisture (Frances-wound Skin Appearance) Assessed,Dry/ Assessed,Dry/ Scaly Scaly -Color (Frances-wound Skin Appearance) Assessed Assessed -Temperature (Frances-wound Skin No Abnormality No Abnormality Appearance) (Pt Warm) (Pt Warm) -Tenderness on Palpation (Frances-wound No No Skin Appearance) -Ulcer Cleansing Not Cleansed Soap and Water -Foul Odor after Cleansing No No -Anesthetic Used 4% Lidocaine 4% Lidocaine Solution Solution WC - Nurse 2 - General Ulcer CM Notes Start: 10/22/21 13:11 Freq: Status: Active Protocol: Activity Type Activity Date Activity User E-Sign Co-Sign Detail Recorded Client Recorded Date Recorded By Document 10/22/21 13:42 [id number] 10/22/21 13:45 Document 10/29/21 11:05 [id number] 10/29/21 11:24 10/22/21 10/29/21 13:42 11:05 Wound Center Nurse 2 3. L lateral LE -Time 13:43 11:07 -Correct Patient Yes Yes -Correct Side, Site, Position Yes Yes -Correct Procedure Yes Yes -Procedure Performed Yes Yes -Type of Procedure Debridement Debridement -Clinical Debridement Subcutaneous Subcutaneous -Tissue Removed Subcutaneous Subcutaneous -Post Debridement (cm) - Length 7.8 10.2 -Post Debridement (cm) - Width 2.1 2.0 -Post Debridement (cm) - Depth 0.1 0.1 -Total Square (Post) (cm) 16.38 20.40 -Area of Debridement (cm) - Length 7.8 10.2 -Area of Debridement (cm) - Width 2.1 2.0 -Total Square (Area) (cm) 16.38 20.40 -Tunneling No No -Undermining/Tunneling No No -Circular Undermining No No -Wound/Ulcer Outcome Not Healed Not Healed -Ulcer Cleansing Rinsed/ Rinsed/ Irrigated with Irrigated with Saline Saline -Foul Odor after Cleansing No No -Bioengineered Tissue No No -Expiration Date 07/09/26 -Product Lot Number [id number] -Percent Used 100 -Lot number of Saline Used [id number] -Bleeding Controlled with Pressure Pressure -Offloading No No -Treatment Response Procedure Procedure Tolerated Well Tolerated Well -Debridement - Subq, 1st 20sq cm Yes Yes -Debridement, SubQ, ea addt'l 20sq cm 1 or part thereof 2. L dorsal foot -Time 13:44 11:07 -Correct Patient Yes Yes -Correct Side, Site, Position Yes Yes -Correct Procedure Yes Yes -Procedure Performed Yes Yes -Type of Procedure Debridement Debridement -Clinical Debridement Subcutaneous Subcutaneous -Tissue Removed Subcutaneous Subcutaneous -Post Debridement (cm) - Length 2.2 2.6 -Post Debridement (cm) - Width 3.4 3.8 -Post Debridement (cm) - Depth 0.1 0.1 -Total Square (Post) (cm) 7.48 9.88 -Area of Debridement (cm) - Length 2.2 2.6 -Area of Debridement (cm) - Width 3.4 3.8 -Total Square (Area) (cm) 7.48 9.88 -Tunneling No No -Undermining/Tunneling No No -Circular Undermining No No -Wound/Ulcer Outcome Not Healed Not Healed -Ulcer Cleansing Rinsed/ Rinsed/ Irrigated with Irrigated with Saline Saline -Foul Odor after Cleansing No No -Bioengineered Tissue Yes Yes -Type of Bioengineered Tissue Epifix Mesh Epifix Mesh -Expiration Date 07/09/26 -Product Lot Number [id number] -Percent Used 100 -Lot number of Saline Used [id number] -Bleeding Controlled with Pressure Pressure -Offloading No No -Treatment Response Procedure Procedure Tolerated Well Tolerated Well -Debridement - Subq, 1st 20sq cm No No -Apply Skin Sub - 1st 25 sq cm - Legs 1 -Apply Skin Sub - 1st 25 sq cm - Feet 1 -Epifix Mesh (per sq cm) 11 11 Pain Scale: 0-10 Numeric Is Patient Pain Free? Yes Yes - Nurse 3 - General Ulcer D/C NN Start: 10/22/21 13:11 Freq: Status: Active Protocol: Activity Type Activity Date Activity User E-Sign Co-Sign Detail Recorded Client Recorded Date Recorded By Document 10/29/21 11:28 [id number] 10/29/21 11:31 10/29/21 11:28 Wound Care Nurse 3 3. L lateral LE -Primary Dressing Applied Aquacel Extra -Other Dressing nurses hat with abd -Primary Dressing Covered/Secured with Dry Gauze,Dry Gauze & Roll Gauze,Secured with Tape -Aquacel Extra 1 2. L dorsal foot -Other Dressing aquacel extra -Primary Dressing Covered/Secured with Dry Gauze,Dry Gauze & Roll Gauze,Secured with Tape Treatment Response Procedure Tolerated Well Pain Scale: 0-10 Numeric Is Patient Pain Free? Yes - Visit Discharge Discharge Condition Stable Ambulatory Status Ambulatory Transportation Private Auto Medication Reconcilliation completed & No provided to patient/care provider Clinical Summary of Care Provided Yes Additional Wound Wound debrided: Left posterior calf ulcer Laterality: Left Type of Debridement: Excisional debridement Anesthesia Used: 5% Lidocaine Gel Depth: in the subcutaneous layer Percentage of wound debrided: 100 Instrument Used: 7mm curette Tissue Removed: Devitalized tissue and fibrin Severity: Fat Layer Exposed Amount of bleeding with debridement: Mild Bleeding Controlled with: Compression and gauze Patient tolerated procedure: Patient tolerated procedure well Assessment/Plan Assessment/Plan (1) PAD (peripheral artery disease): CODE(S): I73.9 - Peripheral vascular disease, unspecified PLAN: Dorsal foot and the posterior left lower leg epi fix #2 applied skin prep around the area with Steri-Strips and Aquacel over top with dressing. 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
[2021-11-05 10:10] VITALS: BP 160/72; PULSE 63; RESP 20; TEMP 36.8; BMI 36.6
--- NOTE | 2021-11-05 12:45 | PCM.WC.PN ---
History of Present Illness Date of Service: 11/05/21 Chief Complaint: Diabetic left heel ulcer with osteomyelitis History of Wound: This 71-year-old female following up for left transmetatarsal amputation for treatment of gangrene and osteomyelitis of limb threatening infection that was performed at [facility] on 08-08-21. She is also following up for anterior left ankle and posterior left leg ulcers. She has been residing at [facility]. She also recently had vascular surgery intervention and continues on Plavix. She is taking nutritional supplementation. She has been having the dressing changed daily with Santyl. She is also offloading has a special pillow to assist with this. She denies worsening pain status, fever, chill, nausea, vomiting. She is here today with her granddaughter and is ready for epi fix application. Progress of Wound: Again seen patient for Dr. Burgess on wounds on left dorsal foot and and left lateral leg are improved and should be closing in the next week or 2. Patient received epi fix #3 to both areas and tolerated well family is very impressed with its healing. Subjective Subjective Family is happy with results Objective Data Objective Data Measurements continue to show smaller areas left lateral leg is much more narrow and shorter Patient should be done in the next couple of week applications. Vital Signs: Vital Signs Temp Pulse Resp BP 98.2 F 63 20 H 160/72 H 11/05/21 10:10 11/05/21 10:10 11/05/21 10:10 11/05/21 10:10 Oxygen Delivery Method Room Air Weight: 200 lb 6.548 oz Body Mass Index (BMI) 36.6 Lab / Micro Data Attestation: I reviewed the patient's lab results. Physical Exam Const alert, oriented x3 and no apparent distress Extremity Extremity Narrative: Left foot Transmetatarsal amputation with lateral incision site wound site is healed with full epithelialization without gapping wound drainage or necrosis. This is a healed cicatrix at this time. There is healing anterior ankle ulcer down to subcutaneous tissue (decreased size) and no longer exposed tendon, and also healing posterior distal leg ulcer down to subcutaneous tissue with no evidence of infection to these ulcer sites, margins viable, no malodor. This mainly has a granular base and there is a scant area of fibrous tissue. There is no longer any eschar or deep tissue exposure. There is no crepitus, no visible abscess noted to the left foot, ankle or leg. Decreased sensation to the left foot c/w chronic peripheral neuropathy, no evidence of acute ischemia to the bilateral foot or ankle, no evidence of charcot neuroarthropathy or compartment syndrome either. Reduced palpable pulse left. Lower extremity edema mild Debridement Note Debridement Note Wound debrided: Left dorsal foot Type of Debridement: Excisional debridement Anesthesia Used: 5% Lidocaine Gel Depth: Down to and including healthy tissue Percentage of wound debrided: 100 Instrument Used: 7mm curette Tissue Removed: Fibrin Severity: Limited To Skin Breakdown Amount of bleeding with debridement: Mild Bleeding Controlled with: Compression and gauze Post-Debridement Measurements and Additional Note: Post-Debridement Measurements/Treatment - Nurse 1 - General Ulcer Assessment Start: 10/22/21 13:11 Freq: Status: Active Protocol: MARILIA Activity Type Activity Date Activity User E-Sign Co-Sign Detail Recorded Client Recorded Date Recorded By Document 10/22/21 13:12 [facility] [id number] 10/22/21 13:24 [facility] Document 10/29/21 10:39 BMF [id number] 10/29/21 10:57 [facility] Document 11/05/21 10:10 DL [id number] 11/05/21 10:20 DL 10/22/21 10/29/21 11/05/21 13:12 10:39 10:10 - Today's Visit Information Type of service Follow-up Visit Follow-up Visit Follow-up Visit (Physician/HOT WATER HEATER INSTALLER (Physician/HOT WATER HEATER INSTALLER (Physician/HOT WATER HEATER INSTALLER ) ) ) Arrival Mode Wheelchair Ambulatory Wheelchair Transfer Assistance None None Manual Transfer Assist (Other) x2 Accompanied by GRAND LIANA DAUGHTER, GR DAUGHTER Patient Identification Verified (Name & Yes Yes Yes ) Patient Requires Transmission-Based No No Precautions Finger Stick Blood Sugar(mg/dl) (if not checked indicated): Blood Sugar Stated by Patient Height and Weight Body Mass Index (BMI) 36.6 36.6 36.6 BMI Classification Obese Obese Obese Vital Signs Temperature (97.8 F-99.1 F) 97.4 F L 96.3 F L 98.2 F Temperature Source Temporal Temporal Temporal Pulse Rate (60-100) 55 L 59 L 63 Pulse Location Monitor Monitor Monitor Respiratory Rate (12-18) 16 16 20 H Respiratory rate source Observation Observation Observation Oxygen Delivery Method Room Air Room Air Blood Pressure (90/60-120/80) 179/65 H 150/43 H 160/72 H Blood Pressure Mean (mm Hg) 103 78 101 Source Monitor Monitor Monitor Position Sitting Sitting Blood Pressure Location Right Arm Right Forearm History Since Last Visit- (Skip if this is Patient's initial visit) Have you changed medications since your No No last visit? Any new allergies or adverse reactions No No Had a fall/change in ADL's that may No No increase risk of falls Signs or symptoms of abuse and/or No No neglect since last visit Have you been in the hospital since your Yes No last visit? Has dressing in place as prescribed Yes Has compression in place as prescribed Yes Has offloadiing in place as prescribed Yes Experienced any changes in pain level or No management Pain Scale: 0-10 Numeric Is Patient Pain Free? Yes Yes Yes WC - Nurse 1 - General Ulcer Measurement Start: 10/22/21 13:11 Freq: Status: Active Protocol: Activity Type Activity Date Activity User E-Sign Co-Sign Detail Recorded Client Recorded Date Recorded By Document 10/22/21 13:12 [facility] [id number] 10/22/21 13:24 [facility] Document 10/29/21 10:39 [facility] [id number] 10/29/21 10:57 [facility] Document 11/05/21 10:10 DL [id number] 11/05/21 10:20 DL 10/22/21 10/29/21 11/05/21 13:12 10:39 10:10 Wound Center Nurse 1 3. L lateral LE -Combined with other wound No No -Current Size (cm) - Length 7.8 2.4 17.5 -Current Size (cm) - Width 2 2 5.5 -Current Size (cm) - Depth 0.1 0.1 0.1 -Total Square Cm 15.6 4.8 96.25 -Date of Last Picture (Recall this 10/22/21 field) -Photo Taken Yes No No -Epithelialization None Present None Present -Tunneling No No -Undermining/Tunneling No No -Circular Undermining No No -Exudate Amt Medium Medium Medium -Exudate Type Serosanguineous Serosanguineous Serosanguineous -Wound Margin Distinct, Distinct, Distinct, Outline Outline Outline Attached Attached Attached -Granulation Amt Large (67-100%) Large (67-100%) Large (67-100%) -Granulation Quality Red [place] Red -Slough/Fibrin Yes Yes -Necrosis Amt Small (1-33%) Small (1-33%) Small (1-33%) -Necrotic Tissue Type Adherent Slough Adherent Slough Adherent Slough -Structure Exposed N/A -Texture (Frances-wound Skin Appearance) Assessed, Assessed, Scarring Scarring Scarring -Moisture (Frances-wound Skin Appearance) Assessed,Dry/ Assessed Scaly -Color (Frances-wound Skin Appearance) Assessed Assessed Hemosiderin Staining -Temperature (Frances-wound Skin No Abnormality No Abnormality No Abnormality Appearance) (Pt Warm) (Pt Warm) (Pt Warm) -Tenderness on Palpation (Frances-wound No No No Skin Appearance) -Ulcer Cleansing Soap and Water Soap and Water Soap and Water -Foul Odor after Cleansing No No No -Anesthetic Used 4% Lidocaine 4% Lidocaine 4% Lidocaine Solution Solution Solution,5% Lidocaine Gel 2. L dorsal foot -Combined with other wound No No -Current Size (cm) - Length 2.1 2.4 4 -Current Size (cm) - Width 3.4 3.3 4.5 -Current Size (cm) - Depth 0.1 0.1 0.1 -Total Square Cm 7.14 7.92 18.0 -Date of Last Picture (Recall this 10/22/21 field) -Photo Taken Yes No No -Epithelialization None Present Small 1-33% -Tunneling No No -Undermining/Tunneling No No -Circular Undermining No No -Exudate Amt Medium Medium Medium -Exudate Type Serosanguineous Serosanguineous Serosanguineous -Wound Margin Distinct, Distinct, Distinct, Outline Outline Outline Attached Attached Attached -Granulation Amt Large (67-100%) Medium (34-66%) Large (67-100%) -Granulation Quality Red Red Red -Slough/Fibrin Yes Yes -Necrosis Amt Small (1-33%) Medium (34-66%) Small (1-33%) -Necrotic Tissue Type Adherent Slough Adherent Slough Adherent Slough -Structure Exposed N/A -Texture (Frances-wound Skin Appearance) Assessed, Assessed, Scarring Scarring Scarring -Moisture (Frances-wound Skin Appearance) Assessed,Dry/ Assessed,Dry/ No Abnormality Scaly Scaly -Color (Frances-wound Skin Appearance) Assessed Assessed Hemosiderin Staining -Temperature (Frances-wound Skin No Abnormality No Abnormality No Abnormality Appearance) (Pt Warm) (Pt Warm) (Pt Warm) -Tenderness on Palpation (Frances-wound No No No Skin Appearance) -Ulcer Cleansing Not Cleansed Soap and Water Soap and Water -Foul Odor after Cleansing No No No -Anesthetic Used 4% Lidocaine 4% Lidocaine 4% Lidocaine Solution Solution Solution,5% Lidocaine Gel WC - Nurse 2 - General Ulcer CM Notes Start: 10/22/21 13:11 Freq: Status: Active Protocol: Activity Type Activity Date Activity User E-Sign Co-Sign Detail Recorded Client Recorded Date Recorded By Document 10/22/21 13:42 JF [id number] 10/22/21 13:45 JF Document 10/29/21 11:05 MW [id number] 10/29/21 11:24 MW Document 11/05/21 10:32 MW [id number] 11/05/21 10:42 MW 10/22/21 10/29/21 11/05/21 13:42 11:05 10:32 Wound Center Nurse 2 3. L lateral LE -Time 13:43 11:07 10:37 -Correct Patient Yes Yes Yes -Correct Side, Site, Position Yes Yes Yes -Correct Procedure Yes Yes Yes -Procedure Performed Yes Yes Yes -Type of Procedure Debridement Debridement Debridement -Clinical Debridement Subcutaneous Subcutaneous Subcutaneous -Tissue Removed Subcutaneous Subcutaneous Subcutaneous -Post Debridement (cm) - Length 7.8 10.2 9.2 -Post Debridement (cm) - Width 2.1 2.0 2.0 -Post Debridement (cm) - Depth 0.1 0.1 0.1 -Total Square (Post) (cm) 16.38 20.40 18.40 -Area of Debridement (cm) - Length 7.8 10.2 9.2 -Area of Debridement (cm) - Width 2.1 2.0 2.0 -Total Square (Area) (cm) 16.38 20.40 18.40 -Tunneling No No No -Undermining/Tunneling No No No -Circular Undermining No No No -Wound/Ulcer Outcome Not Healed Not Healed Not Healed -Ulcer Cleansing Rinsed/ Rinsed/ Rinsed/ Irrigated with Irrigated with Irrigated with Saline Saline Saline -Foul Odor after Cleansing No No No -Bioengineered Tissue No No No -Expiration Date 07/09/26 -Product Lot Number [id number] -Percent Used 100 -Lot number of Saline Used [id number] -Bleeding Controlled with Pressure Pressure Pressure -Offloading No No No -Treatment Response Procedure Procedure Procedure Tolerated Well Tolerated Well Tolerated Well -Debridement - Subq, 1st 20sq cm Yes Yes Yes -Debridement, SubQ, ea addt'l 20sq cm 1 or part thereof 2. L dorsal foot -Time 13:44 11:07 10:38 -Correct Patient Yes Yes Yes -Correct Side, Site, Position Yes Yes Yes -Correct Procedure Yes Yes Yes -Procedure Performed Yes Yes Yes -Type of Procedure Debridement Debridement Debridement -Clinical Debridement Subcutaneous Subcutaneous Subcutaneous -Tissue Removed Subcutaneous Subcutaneous Subcutaneous -Post Debridement (cm) - Length 2.2 2.6 4.0 -Post Debridement (cm) - Width 3.4 3.8 4.0 -Post Debridement (cm) - Depth 0.1 0.1 0.1 -Total Square (Post) (cm) 7.48 9.88 16.00 -Area of Debridement (cm) - Length 2.2 2.6 4.0 -Area of Debridement (cm) - Width 3.4 3.8 4.0 -Total Square (Area) (cm) 7.48 9.88 16.00 -Tunneling No No No -Undermining/Tunneling No No No -Circular Undermining No No No -Wound/Ulcer Outcome Not Healed Not Healed Not Healed -Ulcer Cleansing Rinsed/ Rinsed/ Rinsed/ Irrigated with Irrigated with Irrigated with Saline Saline Saline -Foul Odor after Cleansing No No No -Bioengineered Tissue Yes Yes Yes -Type of Bioengineered Tissue Epifix Mesh Epifix Mesh Epifix Mesh -Expiration Date 07/09/26 07/09/26 -Product Lot Number [id number] -Percent Used 100 100 -Lot number of Saline Used [id number] -Bleeding Controlled with Pressure Pressure Pressure -Offloading No No No -Treatment Response Procedure Procedure Procedure Tolerated Well Tolerated Well Tolerated Well -Debridement - Subq, 1st 20sq cm No No No -Apply Skin Sub - 1st 25 sq cm - Legs 1 -Apply Skin Sub - 1st 25 sq cm - Feet 1 1 -Epifix Mesh (per sq cm) 11 11 11 Pain Scale: 0-10 Numeric Is Patient Pain Free? Yes Yes Yes - Nurse 3 - General Ulcer D/C NN Start: 10/22/21 13:11 Freq: Status: Active Protocol: Activity Type Activity Date Activity User E-Sign Co-Sign Detail Recorded Client Recorded Date Recorded By Document 10/29/21 11:28 RB [id number] 10/29/21 11:31 RB Document 11/05/21 10:58 DL [id number] 11/05/21 10:59 DL 10/29/21 11/05/21 11:28 10:58 Wound Care Nurse 3 3. L lateral LE -Foul Odor after Cleansing No -Primary Dressing Applied Aquacel Extra Aquacel Extra -Other Dressing nurses hat with Epifix abd -Primary Dressing Covered/Secured with Dry Gauze,Dry Dry Gauze & Gauze & Roll Roll Gauze, Gauze,Secured Secured with with Tape Tape -Aquacel Extra 1 1 2. L dorsal foot -Foul Odor after Cleansing No -Other Dressing aquacel extra Epifix/aquacel EX -Primary Dressing Covered/Secured with Dry Gauze,Dry Dry Gauze & Gauze & Roll Roll Gauze, Gauze,Secured Secured with with Tape Tape Treatment Response Procedure Procedure Tolerated Well Tolerated Well Pain Scale: 0-10 Numeric Is Patient Pain Free? Yes Yes - Visit Discharge Discharge Condition Stable Stable Ambulatory Status Ambulatory Wheelchair Transportation Private Auto Private Auto Medication Reconcilliation completed & No provided to patient/care provider Clinical Summary of Care Provided Yes Facility Type Home Health Orders Sent Yes Additional Wound Wound debrided: Left lateral lower leg Type of Debridement: Excisional debridement Anesthesia Used: 5% Lidocaine Gel Depth: Down to and including healthy tissue Percentage of wound debrided: 100 Instrument Used: 7mm curette Tissue Removed: Fibrin Severity: Limited To Skin Breakdown Amount of bleeding with debridement: Mild Bleeding Controlled with: Pressure Patient tolerated procedure: Patient tolerated procedure well Assessment/Plan Assessment/Plan (1) PAD (peripheral artery disease): CODE(S): I73.9 - Peripheral vascular disease, unspecified PLAN: Dorsal foot and the posterior left lower leg epi fix #3 applied skin prep around the area with Steri-Strips and Aquacel over top with dressing. 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: CODE(S): L97.923 - Non-pressure chronic ulcer of unspecified part of left lower leg with necrosis of muscle (6) Type 2 diabetes mellitus with diabetic polyneuropathy: CODE(S): E11.42 - Type 2 diabetes mellitus with diabetic polyneuropathy QUALIFIERS: Diabetes mellitus shelter insulin use: with ferry terminal agent use Qualified Code(s): E11.42 - Type 2 diabetes mellitus with diabetic polyneuropathy; Z79.4 - care home (current) use of insulin (7) Malnutrition: CODE(S): E46 - Unspecified protein-calorie malnutrition QUALIFIERS: Malnutrition type: protein-calorie malnutrition Protein-calorie malnutrition severity: moderate Qualified Code(s): E44.0 - Moderate protein-calorie malnutrition
== END 2021-11-07 23:59 ==
LOC: WC 10:00
PROVIDERS: PCP Family Medicine Geriatric Medicine; Visit Provider Podiatrist
DX: E11.621 Type 2 diabetes mellitus with foot ulcer (principal); E11.21 Type 2 diabetes mellitus with diabetic nephropathy; E11.42 Type 2 diabetes mellitus with diabetic polyneuropathy; E11.51 Type 2 diabetes mellitus with diabetic peripheral angiopathy without gangrene; E11.69 Type 2 diabetes mellitus with other specified complication; F32.A Depression, unspecified; Z86.718 Personal history of other venous thrombosis and embolism; E78.00 Pure hypercholesterolemia, unspecified; I25.2 Old myocardial infarction; Z79.02 Long term (current) use of antithrombotics/antiplatelets; Z79.4 Long term (current) use of insulin; Z79.82 Long term (current) use of aspirin; G47.30 Sleep apnea, unspecified; G25.81 Restless legs syndrome; Z79.899 Other long term (current) drug therapy; Z95.1 Presence of aortocoronary bypass graft; R60.0 Localized edema; E44.0 Moderate protein-calorie malnutrition; Z68.36 Body mass index [BMI] 36.0-36.9, adult
CPT/HCPCS: 11042; 11045; 15271; 15275; Q4186

== ENCOUNTER → 2021-11-06 10:09 | Outpatient (CLI) | payer MEDICARE, SELFPAY ==
[2021-11-06 13:19] LABS: T3 Uptake 42 % (30-39); T4 Free Direct 1.93 ng/dL (0.76-1.46); Thyroid Stim Hormone (TSH) < 0.01 uIU/mL (0.358-3.74)
== END ==
PROVIDERS: PCP Family Medicine Geriatric Medicine; Visit Provider Family Medicine Geriatric Medicine
DX: E03.9 Hypothyroidism, unspecified (principal)
CPT/HCPCS: 36415; 84439; 84443; 84479

== ENCOUNTER 2021-11-12 14:14 | Outpatient (CLI) | payer MEDICARE, SELFPAY ==
[2021-11-12 15:27] LABS: Albumin, Serum 2.9 g/dL (3.2-5.0); BUN 50 mg/dL (7-18); BUN/Creat Ratio 26.2 RATIO (10-20); Calcium,Total 8.9 mg/dL (8.5-10.1); Chloride 116 mmol/L (98-107); Creatinine, Serum 1.91 mg/dL (0.55-1.02); EST Glomerular Filtration Rate 28 mL/min (>60); Est Glom Filt Rate - Afr Amer 33 mL/min (>60); Glucose 173 mg/dL (74-106); Phosphorus 3.5 mg/dL (2.5-4.9); Sodium Level 141 mmol/L (136-145)
== END 2021-11-12 23:59 | disposition short-term general hospital (02) ==
PROVIDERS: PCP Family Medicine Geriatric Medicine; Visit Provider Internal Medicine Nephrology
DX: N17.9 Acute kidney failure, unspecified (principal)
CPT/HCPCS: 36415; 80069

== ENCOUNTER 2021-12-03 09:30 | Outpatient (RCR) | payer MEDICARE, MEDICAID, SELFPAY ==
[2021-11-08 00:33] VITALS: BP 160/72; PULSE 63; RESP 20; TEMP 36.8; BMI 36.6
[2021-11-12 14:32] VITALS: BP 149/71; PULSE 55; RESP 20; TEMP 36.6; BMI 36.6
--- NOTE | 2021-11-12 15:47 | PCM.WC.PN ---
History of Present Illness Date of Service: 11/12/21 Chief Complaint: Diabetic left heel ulcer with osteomyelitis History of Wound: This 71-year-old female following up for left transmetatarsal amputation for treatment of gangrene and osteomyelitis of limb threatening infection that was performed at [facility] on 08-08-21. She is also following up for anterior left ankle and posterior left leg ulcers. She has been residing at [facility]. She also recently had vascular surgery intervention and continues on Plavix. She is taking nutritional supplementation. She is ready for epifix application. Progress of Wound: improving Objective Data Objective Data Vital Signs: Vital Signs Temp Pulse Resp BP 97.8 F 55 L 20 H 149/71 H 11/12/21 14:32 11/12/21 14:32 11/12/21 14:32 11/12/21 14:32 Weight: 90.904 kg Body Mass Index (BMI) 36.6 Physical Exam Const alert, oriented x3 and no apparent distress Extremity Extremity Narrative: Left foot Transmetatarsal amputation with lateral incision site wound site is healed with full epithelialization without gapping wound drainage or necrosis. This is a healed cicatrix at this time. There is healing anterior ankle ulcer down to subcutaneous tissue (decreased size) and no longer exposed tendon, and also healing posterior distal leg ulcer down to subcutaneous tissue with no evidence of infection to these ulcer sites, margins viable, no malodor. This mainly has a granular base and there is a scant area of fibrous tissue. There is no longer any eschar or deep tissue exposure. There is no crepitus, no visible abscess noted to the left foot, ankle or leg. Decreased sensation to the left foot c/w chronic peripheral neuropathy, no evidence of acute ischemia to the bilateral foot or ankle, no evidence of charcot neuroarthropathy or compartment syndrome either. Reduced palpable pulse left. Lower extremity edema mild Debridement Note Debridement Note Wound debrided: anterior lowerleg/ankle, lateral leg; left Wound Grade/Stage: 2,1 Type of Debridement: Excisional debridement Anesthesia Used: 4% Lidocaine Solution Depth: in the subcutaneous layer Percentage of wound debrided: 100 Instrument Used: #15 blade Tissue Removed: fibrous, devitalized subcutaneous, biofilm, slough Severity: Fat Layer Exposed Amount of bleeding with debridement: Mild Bleeding Controlled with: Pressure Patient tolerated procedure: Patient tolerated procedure well Post-Debridement Measurements and Additional Note: Post-Debridement Measurements/Treatment SETH - Nurse 1 - General Ulcer Assessment Start: 11/12/21 14:26 Freq: Status: Active Protocol: MARILIA Activity Type Activity Date Activity User E-Sign Co-Sign Detail Recorded Client Recorded Date Recorded By Document 11/12/21 14:32 DL [id number] 11/12/21 14:45 DL 11/12/21 14:32 WC - Today's Visit Information Type of service Follow-up Visit (Physician/PROTOTYPER ) Arrival Mode Wheelchair Transfer Assistance Manual Transfer Assist (Other) x1 Patient Identification Verified (Name & Yes ) Patient Requires Transmission-Based No Precautions Finger Stick Blood Sugar(mg/dl) (if didnt check indicated): Blood Sugar Stated by Patient Height and Weight Body Mass Index (BMI) 36.6 BMI Classification Obese Vital Signs Temperature (97.8 F-99.1 F) 97.8 F Temperature Source Temporal Pulse Rate (60-100) 55 L Pulse Location Monitor Respiratory Rate (12-18) 20 H Respiratory rate source Observation Blood Pressure (90/60-120/80) 149/71 H Blood Pressure Mean (mm Hg) 97 Source Monitor History Since Last Visit- (Skip if this is Patient's initial visit) Have you changed medications since your No last visit? Any new allergies or adverse reactions No Had a fall/change in ADL's that may No increase risk of falls Signs or symptoms of abuse and/or No neglect since last visit Have you been in the hospital since your No last visit? Has dressing in place as prescribed Yes Has compression in place as prescribed N/A Has offloadiing in place as prescribed N/A Experienced any changes in pain level or No management Left Footwear No Footwear Pain Scale: 0-10 Numeric Is Patient Pain Free? Yes SETH - Nurse 1 - General Ulcer Measurement Start: 11/12/21 14:26 Freq: Status: Active Protocol: Activity Type Activity Date Activity User E-Sign Co-Sign Detail Recorded Client Recorded Date Recorded By Document 11/12/21 14:32 DL [id number] 11/12/21 14:45 DL 11/12/21 14:32 Wound Center Nurse 1 3. L lateral LE -Current Size (cm) - Length 9 -Current Size (cm) - Width 1.6 -Current Size (cm) - Depth 0.1 -Total Square Cm 14.4 -Photo Taken No -Exudate Amt Medium -Exudate Type Sanguineous -Wound Margin Distinct, Outline Attached -Granulation Amt Large (67-100%) -Granulation Quality Red -Necrosis Amt Small (1-33%) -Necrotic Tissue Type Adherent Slough -Structure Exposed N/A -Texture (Frances-wound Skin Appearance) Scarring -Moisture (Frances-wound Skin Appearance) No Abnormality -Color (Frances-wound Skin Appearance) No Abnormality -Temperature (Frances-wound Skin No Abnormality Appearance) (Pt Warm) -Tenderness on Palpation (Frances-wound No Skin Appearance) -Ulcer Cleansing Soap and Water -Foul Odor after Cleansing No -Anesthetic Used 4% Lidocaine Solution 2. L dorsal foot -Current Size (cm) - Length 3 -Current Size (cm) - Width 3.4 -Current Size (cm) - Depth 0.1 -Total Square Cm 10.2 -Photo Taken No -Exudate Amt Medium -Exudate Type Serosanguineous -Wound Margin Distinct, Outline Attached -Granulation Amt Large (67-100%) -Granulation Quality [place],Red -Necrosis Amt None Present (0 %) -Structure Exposed N/A -Texture (Frances-wound Skin Appearance) Scarring -Moisture (Frances-wound Skin Appearance) No Abnormality -Color (Frances-wound Skin Appearance) No Abnormality -Temperature (Frances-wound Skin No Abnormality Appearance) (Pt Warm) -Tenderness on Palpation (Frances-wound No Skin Appearance) -Ulcer Cleansing Soap and Water -Foul Odor after Cleansing No -Anesthetic Used 4% Lidocaine Solution Assessment/Plan Assessment/Plan (1) PAD (peripheral artery disease): CODE(S): I73.9 - Peripheral vascular disease, unspecified (2) Delayed wound healing: CODE(S): T14.8 - Other injury of unspecified body region (3) Localized edema: CODE(S): R60.0 - Localized edema (4) 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: CODE(S): L97.922 - Non-pressure chronic ulcer of unspecified part of left lower leg with fat layer exposed (5) 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: CODE(S): L97.923 - Non-pressure chronic ulcer of unspecified part of left lower leg with necrosis of muscle (6) Type 2 diabetes mellitus with diabetic polyneuropathy: CODE(S): E11.42 - Type 2 diabetes mellitus with diabetic polyneuropathy QUALIFIERS: Diabetes mellitus ferry terminal agent insulin use: with senior care use Qualified Code(s): E11.42 - Type 2 diabetes mellitus with diabetic polyneuropathy; Z79.4 - FDC (current) use of insulin (7) Malnutrition: CODE(S): E46 - Unspecified protein-calorie malnutrition QUALIFIERS: Malnutrition type: protein-calorie malnutrition Protein-calorie malnutrition severity: moderate Qualified Code(s): E44.0 - Moderate protein-calorie malnutrition PLAN: I reviewed and discussed her case today. Debridement was performed today as noted in the clinical panel to all of the ulcer sites. She resides at [facility] and may be eligible for discharge home with family (daughter) next week. She is doing very well. The following work up and care recommendations were made: Dressing: Keep secondary dressing including a wound veil and Steri-Strips over the epi fix intact clean and dry Wash: Antibacterial soap and water Tissue growth optimization: She would benefit from application of advanced wound healing product, epi fix. This is medically necessary for limb salvage. She is high risk for continued delayed healing and limb loss due to her comorbidities. She is already been on a comprehensive wound healing management plan. This was applied today to the anterior ankle according standard protocol after verbal consent was obtained. She tolerated this well. This was secured in place with a wound veil and Steri-Strips. She is advised keep this clean, dry, and intact until follow-up visit. Offload: Continue offloading pillow to take pressure off of the back of her leg in front of her ankle. Vascular: She is under the care of Dr. Aguilar, vascular surgeon. On 08-20-21 she had catheterization in place to the anterior tibial artery and a balloon angioplasty performed in the popliteal into the proximal anterior tib. To follow-up as scheduled. Additional intervention is not planned at this time and she reports she followed with Dr. Aguilar this morning who wrote recommended monitoring her staged improvement. To continue on Plavix. Edema: Alejandro wrap applied Infection: This has resolved and her surgical site has also healed. She was previously under the care of infectious disease specialist. Wound cx and surg cx with MRSA, raoultella, citrobacter. Clearance cx with some MRSA and anaerobes. Superficial raoultella was R to cefepime, but surg cx was S and clearance cx was neg for GNR. She was on vanc/meropenem with stop date 09/19/21. There is resolution of local and systemic signs of illness at this time Pain: This is not present because of her neuropathy. Surgically, she had a transmetatarsal amputation and debridement of the ulcers on 08-08-21 at [facility]. Host factors: She is diabetic and her hemoglobin A1c was recently improved to 6.9% (08-07-21). To continue to work with primary care physician on medical management. I recommend nutritional supplementation optimize healing. She is on Vlad and Glucerna. I answered all the patient's questions. To return to the wound healing center in 1 week or call sooner if the patient has any questions or concerns. Note: [employer] speech recognition counselor marriage and family software was used to create portions of this document. Sound-alike and misspelled words, as well as other counselor marriage and family errors may be contained in the documentation.
[2021-11-19 11:05] VITALS: BP 149/70; PULSE 48; RESP 18; TEMP 36.1; BMI 36.6
--- NOTE | 2021-11-19 12:52 | PN.PCM_ITS ---
History of Present Illness Date of Service: 11/19/21 Chief Complaint: Diabetic left heel ulcer with osteomyelitis History of Wound: This 71-year-old female following up for left transmetatarsal amputation for treatment of gangrene and osteomyelitis of limb threatening infection that was performed at [facility] on 08-08-21. She is also following up for anterior left ankle and posterior left leg ulcers. She is now home with family. She also recently had vascular surgery intervention and cont inues on Plavix. She is taking nutritional supplementation. She is ready for epifix application consideration. She relates her wound is now bulging. Progress of Wound: improving Objective Data Objective Data Vital Signs: Vital Signs Temp Pulse Resp BP 97 F L 48 L 18 149/70 H 11/19/21 11:05 11/19/21 11:05 11/19/21 11:05 11/19/21 11:05 Oxygen Delivery Method Room Air Weight: 90.904 kg Body Mass Index (BMI) 36.6 Physical Exam Extremity Extremity Narrative: Left foot Transmetatarsal amputation. This is a healed ci catrix at this time. There is healing anterior ankle ulcer down to subcutaneous tissue (decreased size) and no longer exposed tendon, and also healing posterior distal leg ulcer down to subcutaneous tissue with no evidence of infection to these ulcer sites, margins viable, no malodor. New hypergranulation tissue noted. Also granular base also to the lateral left leg with some distal hypergranulation tissue noted also. There is no longer any eschar or deep tissue exposure. There is no crepitus, no visible abscess noted to the left foot, ankle or leg. Decreased sensation to the left foot c/w chronic peripheral neuropathy, no evidence of acute ischemia to the bilateral foot or ankle, no evidence of charcot neuroarthropathy or compartment syndrome either. Reduced palpable pulse left. Lower extremity edema mild Debridement Note Debridement Note Wound debrided: Left anterior ankle/leg, left lateral leg Wound Grade/Stage: 2,1 Type of Debridement: Excisional debridement Anesthesia Used: 4% Lidocaine Solution Depth: in the subcutaneous layer Percentage of wound debrided: 100 Instrument Used: #15 blade Tissue Removed: fibrous, devitalized subcutaneous, biofilm, slough Severity: Fat Layer Exposed Amount of bleeding with debridement: Mild Bleeding Controlled with: Pressure Patient tolerated procedure: Patient tolerated procedure well Post-Debridement Measurements and Additional Note: Post-Debridement Measurements/Treatment WC - Nurse 1 - General Ulcer Assessment Start: 11/12/21 14:26 Freq: Status: Active Protocol: MARILIA Activity Type Activity Date Activity User E-Sign Co-Sign Detail Recorded Client Recorded Date Recorded By Document 11/12/21 14:32 DL [id number] 11/12/21 14:45 DL Document 11/19/21 11:05 MT [id number] 11/19/21 11:14 MN 11/12/21 11/19/21 14:32 11:05 - Today's Visit Information Type of service Follow-up Visit Follow-up Visit (Physician/TRADING SPECIALIST (Physician/TRADING SPECIALIST ) ) Arrival Mode Wheelchair Wheelchair Transfer Assistance Manual Transfer Assist (Other) x1 Accompanied by ankur Patient Identification Verified (Name & Yes Yes ) Patient Requires Transmission-Based No Precautions Finger Stick Blood Sugar(mg/dl) (if didnt check indicated): Blood Sugar Stated by Patient Height and Weight Body Mass Index (BMI) 36.6 36.6 BMI Classification Obese Obese Vital Signs Temperature (97.8 F-99.1 F) 97.8 F 97 F L Temperature Source Temporal Temporal Pulse Rate (60-100) 55 L 48 L Pulse Location Monitor Monitor Respiratory Rate (12-18) 20 H 18 Respiratory rate source Observation Observation Oxygen Delivery Method Room Air Blood Pressure (90/60-120/80) 149/71 H 149/70 H Blood Pressure Mean (mm Hg) 97 96 Source Monitor Monitor Position Sitting Blood Pressure Location Right Arm History Since Last Visit- (Skip if this is Patient's initial visit) Have you changed medications since your No last visit? Any new allergies or adverse reactions No Had a fall/change in ADL's that may No increase risk of falls Signs or symptoms of abuse and/or No neglect since last visit Have you been in the hospital since your No last visit? Has dressing in place as prescribed Yes Yes Has compression in place as prescribed N/A Yes Has offloadiing in place as prescribed N/A Yes Experienced any changes in pain level or No Yes management Left Footwear No Footwear Pain Scale: 0-10 Numeric Is Patient Pain Free? Yes Yes - Nurse 1 - General Ulcer Measurement Start: 11/12/21 14:26 Freq: Status: Active Protocol: Activity Type Activity Date Activity User E-Sign Co-Sign Detail Recorded Client Recorded Date Recorded By Document 11/12/21 14:32 DL [id number] 11/12/21 14:45 DL Document 11/19/21 11:05 MN [id number] 11/19/21 11:14 MN 11/12/21 11/19/21 14:32 11:05 Wound Center Nurse 1 3. L lateral LE -Current Size (cm) - Length 9 15 -Current Size (cm) - Width 1.6 1.7 -Current Size (cm) - Depth 0.1 0.1 -Total Square Cm 14.4 25.5 -Photo Taken No -Exudate Amt Medium Small -Exudate Type Sanguineous Serosanguineous -Wound Margin Distinct, Flat & Intact Outline Attached -Granulation Amt Large (67-100%) Large (67-100%) -Granulation Quality Red Pale,[place] -Necrosis Amt Small (1-33%) -Necrotic Tissue Type Adherent Slough -Structure Exposed N/A -Texture (Frances-wound Skin Appearance) Scarring Assessed -Moisture (Frances-wound Skin Appearance) No Abnormality Assessed -Color (Frances-wound Skin Appearance) No Abnormality Assessed -Temperature (Frances-wound Skin No Abnormality No Abnormality Appearance) (Pt Warm) (Pt Warm) -Tenderness on Palpation (Frances-wound No No Skin Appearance) -Ulcer Cleansing Soap and Water Soap and Water -Foul Odor after Cleansing No No -Anesthetic Used 4% Lidocaine 4% Lidocaine Solution Solution 2. L dorsal foot -Current Size (cm) - Length 3 5.1 -Current Size (cm) - Width 3.4 4.5 -Current Size (cm) - Depth 0.1 0.1 -Total Square Cm 10.2 22.95 -Photo Taken No -Exudate Amt Medium Medium -Exudate Type Serosanguineous Yellow/Green -Wound Margin Distinct, Well Defined, Outline Not Attached Attached -Granulation Amt Large (67-100%) Large (67-100%) -Granulation Quality [place],Red Red -Necrosis Amt None Present (0 %) -Structure Exposed N/A -Texture (Frances-wound Skin Appearance) Scarring Assessed -Moisture (Frances-wound Skin Appearance) No Abnormality Assessed -Color (Frances-wound Skin Appearance) No Abnormality Assessed -Temperature (Frances-wound Skin No Abnormality No Abnormality Appearance) (Pt Warm) (Pt Warm) -Tenderness on Palpation (Frances-wound No No Skin Appearance) -Ulcer Cleansing Soap and Water Rinsed/ Irrigated with Saline -Foul Odor after Cleansing No -Anesthetic Used 4% Lidocaine 4% Lidocaine Solution Solution Lower Limb Edema Present NA WC - Nurse 2 - General Ulcer CM Notes Start: 11/12/21 14:26 Freq: Status: Active Protocol: Activity Type Activity Date Activity User E-Sign Co-Sign Detail Recorded Client Recorded Date Recorded By Document 11/12/21 16:41 [id number] 11/12/21 16:46 Document 11/19/21 11:21 [id number] 11/19/21 11:27 11/12/21 11/19/21 16:41 11:21 Wound Center Nurse 2 3. L lateral LE -Time 16:42 11:21 -Correct Patient Yes Yes -Correct Side, Site, Position Yes Yes -Correct Procedure Yes Yes -Procedure Performed Yes Yes -Type of Procedure Debridement Debridement -Clinical Debridement Subcutaneous Subcutaneous -Tissue Removed Subcutaneous Subcutaneous -Post Debridement (cm) - Length 9 15.1 -Post Debridement (cm) - Width 1.7 1.7 -Post Debridement (cm) - Depth 0.1 0.1 -Total Square (Post) (cm) 15.3 25.67 -Area of Debridement (cm) - Length 9 15.1 -Area of Debridement (cm) - Width 1.7 1.7 -Total Square (Area) (cm) 15.3 25.67 -Tunneling No No -Undermining/Tunneling No No -Circular Undermining No No -Wound/Ulcer Outcome Not Healed Not Healed -Ulcer Cleansing Rinsed/ Rinsed/ Irrigated with Irrigated with Saline Saline -Foul Odor after Cleansing No No -Bioengineered Tissue Yes No -Type of Bioengineered Tissue Epifix Mesh -Expiration Date 07/09/26 -Product Lot Number [id number] -Percent Used 100 -Lot number of Saline Used [id number] -Bleeding Controlled with Pressure Pressure,Silver Nitrate -Offloading No No -Treatment Response Procedure Procedure Tolerated Well Tolerated Well -Debridement - Subq, 1st 20sq cm No No -Apply Skin Sub - 1st 25 sq cm - Legs 1 -Epifix Mesh (per sq cm) 11 2. L dorsal foot -Time 16:44 11:22 -Correct Patient Yes Yes -Correct Side, Site, Position Yes Yes -Correct Procedure Yes Yes -Procedure Performed Yes Yes -Type of Procedure Debridement Debridement -Clinical Debridement Subcutaneous Subcutaneous -Tissue Removed Subcutaneous Subcutaneous -Post Debridement (cm) - Length 3.0 5.2 -Post Debridement (cm) - Width 3.5 4.5 -Post Debridement (cm) - Depth 0.1 0.1 -Total Square (Post) (cm) 10.50 23.40 -Area of Debridement (cm) - Length 3.0 5.2 -Area of Debridement (cm) - Width 3.5 4.5 -Total Square (Area) (cm) 10.50 23.40 -Tunneling No No -Undermining/Tunneling No No -Circular Undermining No No -Wound/Ulcer Outcome Not Healed Not Healed -Ulcer Cleansing Rinsed/ Rinsed/ Irrigated with Irrigated with Saline Saline -Foul Odor after Cleansing No No -Bioengineered Tissue No No -Bleeding Controlled with Pressure Pressure,Silver Nitrate -Offloading No No -Treatment Response Procedure Procedure Tolerated Well Tolerated Well -Debridement - Subq, 1st 20sq cm Yes Yes -Debridement, SubQ, ea addt'l 20sq cm 2 or part thereof Pain Scale: 0-10 Numeric Is Patient Pain Free? Yes Yes - Nurse 3 - General Ulcer D/C NN Start: 11/12/21 14:26 Freq: Status: Active Protocol: Activity Type Activity Date Activity User E-Sign Co-Sign Detail Recorded Client Recorded Date Recorded By Document 11/19/21 11:55 DL [id number] 11/19/21 11:56 DL 11/19/21 11:55 Wound Care Nurse 3 3. L lateral LE -Ulcer Cleansing Rinsed/ Irrigated with Saline -Foul Odor after Cleansing No -Primary Dressing Applied C Hydrogel ($) -Primary Dressing Covered/Secured with Dry Gauze & Roll Gauze, Secured with Tape -Other Covering alejandro 2. L dorsal foot -Ulcer Cleansing Rinsed/ Irrigated with Saline -Foul Odor after Cleansing No -Other Dressing hydrogel -Primary Dressing Covered/Secured with Dry Gauze & Roll Gauze, Secured with Tape -Other Covering alejandro Treatment Response Procedure Tolerated Well Pain Scale: 0-10 Numeric Is Patient Pain Free? 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: CODE(S): L97.922 - Non-pressure chronic ulcer of unspecified part of left lower leg with fat layer exposed (5) 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: CODE(S): L97.923 - Non-pressure chronic ulcer of unspecified part of left lower leg with necrosis of muscle (6) Type 2 diabetes mellitus with diabetic polyneuropathy: CODE(S): E11.42 - Type 2 diabetes mellitus with diabetic polyneuropathy QUALIFIERS: Diabetes mellitus intermediate card tender insulin use: with retirement use Qualified Code(s): E11.42 - Type 2 diabetes mellitus with diabetic polyneuropathy; Z79.4 - intermediate card tender (current) use of 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 Debridement was performed today as noted in the clinical panel to all of the ulcer sites. She resides at [facility] and may be eligible for discharge home with family (daughter) next week. She is doing very well. The following work up and care recommendations were made: Dressing: Keep secondary dressing including a wound veil and Steri-Strips over the epi fix intact, clean, and dry. Wash: Antibacterial soap and water Tissue growth optimization: She would benefit from application of advanced wound healing product, epi fix. This is medically necessary for limb salvage. First I recommend treatment of the hypergranulation tissue. Application of silver nitrate was applied to each hypergranulation tissue site and application of advanced wound healing product epi fix will be reconsidered next week. Offload: Continue offloading pillow to take pressure off of the back of her leg in front of her ankle. Vascular: She is under the care of Dr. Aguilar, vascular surgeon. On 08-20-21 she had catheterization in place to the anterior tibial artery and a balloon angioplasty performed in the popliteal into the proximal anterior tib. To follow-up as scheduled. Additional intervention is not planned at this time and she reports she followed with Dr. Aguilar this morning who wrote recommended monitoring her staged improvement. To continue on Plavix. Edema: Alejandro wrap applied Infection: This has resolved and her surgical site has also healed. She was previously under the care of infectious disease specialist. Wound cx and surg cx with MRSA, raoultella, citrobacter. Clearance cx with some MRSA and anaerob es. Superficial raoultella was R to cefepime, but surg cx was S and clearance cx was neg for GNR. She was on vanc/meropenem with stop date 09/19/21. There is resolution of local and systemic signs of illness at this time Pain: This is not present because of her neuropathy. Surgically, she had a transmetatarsal amputation and debridement of the ulcers on 08-08-21 at [facility]. Host factors: She is diabetic and her hemoglobin A1c was recently improved to 6.9% (08-07-21). To continue to work with primary care physician on medical management. I recommend nutritional supplementation optimize healing. She is on Vlad and Glucerna. I answered all the patient's questions. To return to the wound healing center in 1 week or call sooner if the patient has any questions or concerns. Note: [employer] speech recognition smoke jumper software was used to create portions of this document. Sound-alike and misspelled words, as well as other smoke jumper errors may be contained in the documentation. The medical decision making level is moderate. There is noted moderate risk of morbidity after considering this treatment plan and diagnostic data. Considerations were given to prescription management, decisions regarding surgical options, or social determinants of health. The problems addressed require a moderate decision making level which includes one or more chronic illnesses (w/ exacerbation, progression, or side effects), two or more stable chronic illnesses, one undiagnosed new problem w/ uncertain prognosis, one acute illness with systemic symptoms, or one acute complicated injury.
[2021-11-26 09:15] VITALS: BP 151/97; PULSE 54; RESP 20; TEMP 36.8; BMI 36.6
--- NOTE | 2021-11-26 10:19 | PCM.WC.PN ---
History of Present Illness Date of Service: 11/26/21 Chief Complaint: Diabetic left heel ulcer with osteomyelitis History of Wound: This 71-year-old female following up for left transmetatarsal amputation for treatment of gangrene and osteomyelitis of limb threatening infection that was performed at [facility] on 08-08-21. She is also following up for anterior left ankle and posterior left leg ulcers. She is now home with family. She also recently had vascular surgery intervention and continues on Plavix. She is taking nutritional supplementation. She is ready for epifix application consideration. Progress of Wound: improving Objective Data Objective Data Vital Signs: Vital Signs Temp Pulse Resp BP 98.2 F 54 L 20 H 151/97 H 11/26/21 09:15 11/26/21 09:15 11/26/21 09:15 11/26/21 09:15 Oxygen Delivery Method Room Air Weight: 90.904 kg Body Mass Index (BMI) 36.6 Physical Exam Extremity Extremity Narrative: Left foot Transmetatarsal amputation. This is a healed cicatrix at this time. There is healing anterior ankle ulcer down to subcutaneous tissue (decreased size) and no longer exposed tendon, and also healing posterior distal leg ulcer down to subcutaneous tissue with no evidence of infection to these ulcer sites, margins viable, no malodor. resolved hypergranulation tissue noted. Also granular base also to the lateral left leg with some resolved distal hypergranulation tissue noted also. There is no longer any eschar or deep tissue exposure. There is no crepitus, no visible abscess noted to the left foot, ankle or leg. Decreased sensation to the left foot c/w chronic peripheral neuropathy, no evidence of acute ischemia to the bilateral foot or ankle, no evidence of charcot neuroarthropathy or compartment syndrome either. Reduced palpable pulse left. Lower extremity edema mild Debridement Note Debridement Note Wound debrided: anterior lower left leg, lateral left leg Wound Grade/Stage: 2,1 Type of Debridement: Excisional debridement Anesthesia Used: 4% Lidocaine Solution Depth: in the subcutaneous layer Percentage of wound debrided: 100 Instrument Used: #15 blade Tissue Removed: fibrous, devitalized subcutaneous, biofilm, slough Severity: Fat Layer Exposed Amount of bleeding with debridement: Mild Bleeding Controlled with: Pressure Patient tolerated procedure: Patient tolerated procedure well Post-Debridement Measurements and Additional Note: Post-Debridement Measurements/Treatment WC - Nurse 1 - General Ulcer Assessment Start: 11/12/21 14:26 Freq: Status: Active Protocol: WC.LOWEXT Activity Type Activity Date Activity User E-Sign Co-Sign Detail Recorded Client Recorded Date Recorded By Document 11/12/21 14:32 DL [id number] 11/12/21 14:45 DL Document 11/19/21 11:05 MT [id number] 11/19/21 11:14 MT Document 11/26/21 09:15 DL [id number] 11/26/21 09:27 DL 11/12/21 11/19/21 11/26/21 14:32 11:05 09:15 WC - Today's Visit Information Type of service Follow-up Visit Follow-up Visit Follow-up Visit (Physician/PLANT OPERATOR CONTROL ROOM OPERATOR (Physician/PLANT OPERATOR CONTROL ROOM OPERATOR (Physician/PLANT OPERATOR CONTROL ROOM OPERATOR ) ) ) Arrival Mode Wheelchair Wheelchair Wheelchair Transfer Assistance Manual Manual Transfer Assist (Other) x1 x2 Accompanied by ankur Patient Identification Verified (Name & Yes Yes Yes ) Patient Requires Transmission-Based No No Precautions Finger Stick Blood Sugar(mg/dl) (if didnt check not checked indicated): Blood Sugar Stated by Stated by Patient Patient Height and Weight Body Mass Index (BMI) 36.6 36.6 36.6 BMI Classification Obese Obese Obese Vital Signs Temperature (97.8 F-99.1 F) 97.8 F 97 F L 98.2 F Temperature Source Temporal Temporal Temporal Pulse Rate (60-100) 55 L 48 L 54 L Pulse Location Monitor Monitor Monitor Respiratory Rate (12-18) 20 H 18 20 H Respiratory rate source Observation Observation Observation Oxygen Delivery Method Room Air Blood Pressure (90/60-120/80) 149/71 H 149/70 H 151/97 H Blood Pressure Mean (mm Hg) 97 96 115 Source Monitor Monitor Monitor Position Sitting Blood Pressure Location Right Arm History Since Last Visit- (Skip if this is Patient's initial visit) Have you changed medications since your No No last visit? Any new allergies or adverse reactions No No Had a fall/change in ADL's that may No No increase risk of falls Signs or symptoms of abuse and/or No No neglect since last visit Have you been in the hospital since your No No last visit? Has dressing in place as prescribed Yes Yes Yes Has compression in place as prescribed N/A Yes Yes Has offloadiing in place as prescribed N/A Yes Yes Experienced any changes in pain level or No Yes No management Left Footwear No Footwear No Footwear Right Footwear No Footwear Pain Scale: 0-10 Numeric Is Patient Pain Free? Yes Yes Yes WC - Nurse 1 - General Ulcer Measurement Start: 11/12/21 14:26 Freq: Status: Active Protocol: Activity Type Activity Date Activity User E-Sign Co-Sign Detail Recorded Client Recorded Date Recorded By Document 11/12/21 14:32 DL [id number] 11/12/21 14:45 DL Document 11/19/21 11:05 MT [id number] 11/19/21 11:14 MT Document 11/26/21 09:15 DL [id number] 11/26/21 09:27 DL 11/12/21 11/19/21 11/26/21 14:32 11:05 09:15 Wound Center Nurse 1 3. L lateral LE -Current Size (cm) - Length 9 15 14.2 -Current Size (cm) - Width 1.6 1.7 1 -Current Size (cm) - Depth 0.1 0.1 0.1 -Total Square Cm 14.4 25.5 14.2 -Photo Taken No No -Exudate Amt Medium Small Small -Exudate Type Sanguineous Serosanguineous Serosanguineous -Wound Margin Distinct, Flat & Intact Distinct, Outline Outline Attached Attached -Granulation Amt Large (67-100%) Large (67-100%) Large (67-100%) -Granulation Quality Red Pale,[place] Red -Necrosis Amt Small (1-33%) Small (1-33%) -Necrotic Tissue Type Adherent Slough Adherent Slough -Structure Exposed N/A N/A -Texture (Frances-wound Skin Appearance) Scarring Assessed Scarring -Moisture (Frances-wound Skin Appearance) No Abnormality Assessed Dry/Scaly -Color (Frances-wound Skin Appearance) No Abnormality Assessed Hemosiderin Staining -Temperature (Frances-wound Skin No Abnormality No Abnormality No Abnormality Appearance) (Pt Warm) (Pt Warm) (Pt Warm) -Tenderness on Palpation (Frances-wound No No No Skin Appearance) -Ulcer Cleansing Soap and Water Soap and Water Soap and Water -Foul Odor after Cleansing No No No -Anesthetic Used 4% Lidocaine 4% Lidocaine 5% Lidocaine Solution Solution Gel 2. L dorsal foot -Current Size (cm) - Length 3 5.1 4.3 -Current Size (cm) - Width 3.4 4.5 3.5 -Current Size (cm) - Depth 0.1 0.1 0.1 -Total Square Cm 10.2 22.95 15.05 -Photo Taken No No -Exudate Amt Medium Medium Medium -Exudate Type Serosanguineous Yellow/Green Serosanguineous -Wound Margin Distinct, Well Defined, Distinct, Outline Not Attached Outline Attached Attached -Granulation Amt Large (67-100%) Large (67-100%) Large (67-100%) -Granulation Quality [place],Red Red [place],Red -Necrosis Amt None Present (0 Small (1-33%) %) -Necrotic Tissue Type Adherent Slough -Structure Exposed N/A N/A -Texture (Frances-wound Skin Appearance) Scarring Assessed Scarring -Moisture (Frances-wound Skin Appearance) No Abnormality Assessed No Abnormality -Color (Frances-wound Skin Appearance) No Abnormality Assessed Hemosiderin Staining -Temperature (Frances-wound Skin No Abnormality No Abnormality Appearance) (Pt Warm) (Pt Warm) -Tenderness on Palpation (Frances-wound No No No Skin Appearance) -Ulcer Cleansing Soap and Water Rinsed/ Soap and Water Irrigated with Saline -Foul Odor after Cleansing No Yes, Due to Product Use -Anesthetic Used 4% Lidocaine 4% Lidocaine 5% Lidocaine Solution Solution Gel Lower Limb Edema Present NA Left Calf (cm) 25 Left Ankle (cm) 19.5 WC - Nurse 2 - General Ulcer CM Notes Start: 11/12/21 14:26 Freq: Status: Active Protocol: Activity Type Activity Date Activity User E-Sign Co-Sign Detail Recorded Client Recorded Date Recorded By Document 11/12/21 16:41 ALFREDO [id number] 11/12/21 16:46 Document 11/19/21 11:21 ALFREDO [id number] 11/19/21 11:27 Document 11/26/21 09:39 ALFREDO [id number] 11/26/21 09:44 ALFREDO 11/12/21 11/19/21 11/26/21 16:41 11:21 09:39 Wound Center Nurse 2 3. L lateral LE -Time 16:42 11:21 09:40 -Correct Patient Yes Yes Yes -Correct Side, Site, Position Yes Yes Yes -Correct Procedure Yes Yes Yes -Procedure Performed Yes Yes Yes -Type of Procedure Debridement Debridement Debridement -Clinical Debridement Subcutaneous Subcutaneous Subcutaneous -Tissue Removed Subcutaneous Subcutaneous Subcutaneous -Post Debridement (cm) - Length 9 15.1 14.3 -Post Debridement (cm) - Width 1.7 1.7 1.0 -Post Debridement (cm) - Depth 0.1 0.1 0.1 -Total Square (Post) (cm) 15.3 25.67 14.30 -Area of Debridement (cm) - Length 9 15.1 14.3 -Area of Debridement (cm) - Width 1.7 1.7 1.0 -Total Square (Area) (cm) 15.3 25.67 14.30 -Tunneling No No No -Undermining/Tunneling No No No -Circular Undermining No No No -Wound/Ulcer Outcome Not Healed Not Healed Not Healed -Ulcer Cleansing Rinsed/ Rinsed/ Rinsed/ Irrigated with Irrigated with Irrigated with Saline Saline Saline -Foul Odor after Cleansing No No No -Bioengineered Tissue Yes No No -Type of Bioengineered Tissue Epifix Mesh -Expiration Date 07/09/26 -Product Lot Number [id number] -Percent Used 100 -Lot number of Saline Used [id number] -Bleeding Controlled with Pressure Pressure,Silver Pressure Nitrate -Offloading No No No -Treatment Response Procedure Procedure Procedure Tolerated Well Tolerated Well Tolerated Well -Debridement - Subq, 1st 20sq cm No No Yes -Apply Skin Sub - 1st 25 sq cm - Legs 1 -Epifix Mesh (per sq cm) 11 2. L dorsal foot -Time 16:44 11:22 -Correct Patient Yes Yes Yes -Correct Side, Site, Position Yes Yes Yes -Correct Procedure Yes Yes Yes -Procedure Performed Yes Yes Yes -Type of Procedure Debridement Debridement Debridement -Clinical Debridement Subcutaneous Subcutaneous Subcutaneous -Tissue Removed Subcutaneous Subcutaneous Subcutaneous -Post Debridement (cm) - Length 3.0 5.2 4.4 -Post Debridement (cm) - Width 3.5 4.5 3.5 -Post Debridement (cm) - Depth 0.1 0.1 0.1 -Total Square (Post) (cm) 10.50 23.40 15.40 -Area of Debridement (cm) - Length 3.0 5.2 4.4 -Area of Debridement (cm) - Width 3.5 4.5 3.5 -Total Square (Area) (cm) 10.50 23.40 15.40 -Tunneling No No No -Undermining/Tunneling No No No -Circular Undermining No No No -Wound/Ulcer Outcome Not Healed Not Healed Not Healed -Ulcer Cleansing Rinsed/ Rinsed/ Rinsed/ Irrigated with Irrigated with Irrigated with Saline Saline Saline -Foul Odor after Cleansing No No No -Bioengineered Tissue No No Yes -Type of Bioengineered Tissue Epifix Mesh -Expiration Date 08/08/26 -Product Lot Number [id number] -Percent Used 100 -Lot number of Saline Used [id number] -Bleeding Controlled with Pressure Pressure,Silver Pressure Nitrate -Offloading No No No -Treatment Response Procedure Procedure Procedure Tolerated Well Tolerated Well Tolerated Well -Debridement - Subq, 1st 20sq cm Yes Yes No -Debridement, SubQ, ea addt'l 20sq cm 2 or part thereof -Apply Skin Sub - 1st 25 sq cm - Feet 1 -Epifix Mesh (per sq cm) 11 Pain Scale: 0-10 Numeric Is Patient Pain Free? Yes Yes Yes WC - Nurse 3 - General Ulcer D/C NN Start: 11/12/21 14:26 Freq: Status: Active Protocol: Activity Type Activity Date Activity User E-Sign Co-Sign Detail Recorded Client Recorded Date Recorded By Document 11/19/21 11:55 DL [id number] 11/19/21 11:56 DL Document 11/26/21 09:59 DL [id number] 11/26/21 10:01 DL 11/19/21 11/26/21 11:55 09:59 Wound Care Nurse 3 3. L lateral LE -Ulcer Cleansing Rinsed/ Irrigated with Saline -Foul Odor after Cleansing No No -Primary Dressing Applied C Hydrogel ($) -Other Dressing EpiMesh -Primary Dressing Covered/Secured with Dry Gauze & Dry Gauze & Roll Gauze, Roll Gauze, Secured with Secured with Tape Tape -Other Covering alejandro 2. L dorsal foot -Ulcer Cleansing Rinsed/ Irrigated with Saline -Foul Odor after Cleansing No No -Other Dressing hydrogel EpiMesh -Primary Dressing Covered/Secured with Dry Gauze & Dry Gauze & Roll Gauze, Roll Gauze, Secured with Secured with Tape Tape -Other Covering alejandro Treatment Response Procedure Procedure Tolerated Well Tolerated Well Pain Scale: 0-10 Numeric Is Patient Pain Free? 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: CODE(S): L97.922 - Non-pressure chronic ulcer of unspecified part of left lower leg with fat layer exposed (5) 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: CODE(S): L97.923 - Non-pressure chronic ulcer of unspecified part of left lower leg with necrosis of muscle (6) Type 2 diabetes mellitus with diabetic polyneuropathy: CODE(S): E11.42 - Type 2 diabetes mellitus with diabetic polyneuropathy QUALIFIERS: Diabetes mellitus termite renewal inspector insulin use: with intermediate use Qualified Code(s): E11.42 - Type 2 diabetes mellitus with diabetic polyneuropathy; Z79.4 - penitentiary (current) use of 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 Debridement was performed today as noted in the clinical panel to all of the ulcer sites. She is now at home. She is doing very well. The following work up and care recommendations were made: Dressing: Keep secondary dressing including a wound veil and Steri-Strips over the epi fix intact, clean, and dry. Wash: Antibacterial soap and water Tissue growth optimization: She would benefit from application of advanced wound healing product, epi fix. This is medically necessary for limb salvage. This was applied according standard protocol after verbal consent. This was secured in place with a wound veil and Steri-Strips. She tolerated this. To keep clean, dry, and intact to the anterior leg, left. 100% of the product was utilized. Offload: Continue offloading pillow to take pressure off of the back of her leg in front of her ankle. Vascular: She is under the care of Dr. Aguilar, vascular surgeon. On 08-20-21 she had catheterization in place to the anterior tibial artery and a balloon angioplasty performed in the popliteal into the proximal anterior tib. To follow-up as scheduled. Additional intervention is not planned at this time and she reports she followed with Dr. Aguilar this morning who wrote recommended monitoring her staged improvement. To continue on Plavix. Edema: Alejandro wrap applied Infection: This has resolved and her surgical site has also healed. She was previously under the care of infectious disease specialist. Wound cx and surg cx with MRSA, raoultella, citrobacter. Clearance cx with some MRSA and anaerobes. Superficial raoultella was R to cefepime, but surg cx was S and clearance cx was neg for GNR. She was on vanc/meropenem with stop date 09/19/21. There is resolution of local and systemic signs of illness at this time Pain: This is not present because of her neuropathy. Surgically, she had a transmetatarsal amputation and debridement of the ulcers on 08-08-21 at [facility]. Host factors: She is diabetic and her hemoglobin A1c was recently improved to 6.9% (08-07-21). To continue to work with primary care physician on medical management. I recommend nutritional supplementation optimize healing. She is on Vlad and Glucerna. I answered all the patient's questions. To return to the wound healing center in 1 week or call sooner if the patient has any questions or concerns.
[2021-12-03 09:16] VITALS: BP 188/75; PULSE 75; RESP 18; TEMP 36.5; BMI 36.6
--- NOTE | 2021-12-03 10:46 | PN.PCM_ITS ---
History of Present Illness Date of Service: 12/03/21 Chief Complaint: Diabetic left heel ulcer with osteomyelitis History of Wound: This 71-year-old female following up for left transmetatarsal amputation for treatment of gangrene and osteomyelitis of limb threatening infection that was performed at [facility] on 08-08-21. She is also following up for anterior left ankle and posterior left leg ulcers. She is now home with family. She also recently had vascular surgery intervention and cont inues on Plavix. She is taking nutritional supplementation. She is ready for epifix application again today. Progress of Wound: improving Objective Data Objective Data Vital Signs: Vital Signs Temp Pulse Resp BP 97.7 F L 75 18 188/75 H 12/03/21 09:16 12/03/21 09:16 12/03/21 09:16 12/03/21 09:16 Oxygen Delivery Method Room Air Weight: 90.904 kg Body Mass Index (BMI) 36.6 Physical Exam Extremity Extremity Narrative: Left foot Transmetatarsal amputation. There is healing anterior ankle ulcer down to subcutaneous tissue (decreased size) and no longer exposed tendon, and also healing posterior distal leg ulcer down to subcutaneous tissue with no evidence of infection to these ulcer sites, margins viable, no malodor. resolved hypergranulation tissue noted. Also granular base also to the lateral left leg with some returned distal hypergranulation tissue noted also. There is no longer any eschar or deep tissue exposure. There is no crepitus, no visible abscess noted to the left foot, ankle or leg. Decreased sensation to the left foot c/w chronic peripheral neuropathy, no evidence of acute ischemia to the bilateral foot or ankle, no evidence of charcot neuroarthropathy or compartment syndrome either. Reduced palpable pulse left. Lower extremity edema mild Debridement Note Debridement Note Wound debrided: anterior lower leg/dorsal foot and lateral leg Wound Grade/Stage: 2,1 Type of Debridement: Excisional debridement Anesthesia Used: 4% Lidocaine Solution Depth: in the subcutaneous layer Percentage of wound debrided: 100 Instrument Used: #15 blade Tissue Removed: fibrous, devitalized subcutaneous, biofilm, slough Severity: Fat Layer Exposed Amount of bleeding with debridement: Mild Bleeding Controlled with: Pressure Patient tolerated procedure: Patient tolerated procedure well Post-Debridement Measurements and Additional Note: Post-Debridement Measurements/Treatment WC - Nurse 1 - General Ulcer Assessment Start: 11/12/21 14:26 Freq: Status: Active Protocol: WC.LOWEXT Activity Type Activity Date Activity User E-Sign Co-Sign Detail Recorded Client Recorded Date Recorded By Document 11/12/21 14:32 DL [id number] 11/12/21 14:45 DL Document 11/19/21 11:05 MT [id number] 11/19/21 11:14 MT Document 11/26/21 09:15 DL [id number] 11/26/21 09:27 DL Document 12/03/21 09:16 RB [id number] 12/03/21 09:25 RB 11/12/21 11/19/21 11/26/21 14:32 11:05 09:15 WC - Today's Visit Information Type of service Follow-up Visit Follow-up Visit Follow-up Visit (Physician/COMMUNITY RECREATION COORDINATOR (Physician/COMMUNITY RECREATION COORDINATOR (Physician/COMMUNITY RECREATION COORDINATOR ) ) ) Arrival Mode Wheelchair Wheelchair Wheelchair Transfer Assistance Manual Manual Transfer Assist (Other) x1 x2 Accompanied by ankur Patient Identification Verified (Name & Yes Yes Yes ) Patient Requires Transmission-Based No No Precautions Finger Stick Blood Sugar(mg/dl) (if didnt check not checked indicated): Blood Sugar Stated by Stated by Patient Patient Height and Weight Body Mass Index (BMI) 36.6 36.6 36.6 BMI Classification Obese Obese Obese Vital Signs Temperature (97.8 F-99.1 F) 97.8 F 97 F L 98.2 F Temperature Source Temporal Temporal Temporal Pulse Rate (60-100) 55 L 48 L 54 L Pulse Location Monitor Monitor Monitor Respiratory Rate (12-18) 20 H 18 20 H Respiratory rate source Observation Observation Observation Oxygen Delivery Method Room Air Blood Pressure (90/60-120/80) 149/71 H 149/70 H 151/97 H Blood Pressure Mean (mm Hg) 97 96 115 Source Monitor Monitor Monitor Position Sitting Blood Pressure Location Right Arm History Since Last Visit- (Skip if this is Patient's initial visit) Have you changed medications since your No No last visit? Any new allergies or adverse reactions No No Had a fall/change in ADL's that may No No increase risk of falls Signs or symptoms of abuse and/or No No neglect since last visit Have you been in the hospital since your No No last visit? Has dressing in place as prescribed Yes Yes Yes Has compression in place as prescribed N/A Yes Yes Has offloadiing in place as prescribed N/A Yes Yes Experienced any changes in pain level or No Yes No management Left Footwear No Footwear No Footwear Right Footwear No Footwear Pain Scale: 0-10 Numeric Is Patient Pain Free? Yes Yes Yes 12/03/21 09:16 - Today's Visit Information Type of service Follow-up Visit (Physician/COMMUNITY RECREATION COORDINATOR ) Arrival Mode Ambulatory Transfer Assistance None Transfer Assist (Other) Accompanied by Patient Identification Verified (Name & Yes ) Patient Requires Transmission-Based Precautions Finger Stick Blood Sugar(mg/dl) (if indicated): Blood Sugar Height and Weight Body Mass Index (BMI) 36.6 BMI Classification Obese Vital Signs Temperature (97.8 F-99.1 F) 97.7 F L Temperature Source Temporal Pulse Rate (60-100) 75 Pulse Location Monitor Respiratory Rate (12-18) 18 Respiratory rate source Observation Oxygen Delivery Method Blood Pressure (90/60-120/80) 188/75 H Blood Pressure Mean (mm Hg) 112 Source Monitor Position Semi-Fowlers Blood Pressure Location Left Arm History Since Last Visit- (Skip if this is Patient's initial visit) Have you changed medications since your No last visit? Any new allergies or adverse reactions No Had a fall/change in ADL's that may No increase risk of falls Signs or symptoms of abuse and/or No neglect since last visit Have you been in the hospital since your No last visit? Has dressing in place as prescribed Yes Has compression in place as prescribed Yes Has offloadiing in place as prescribed No Experienced any changes in pain level or No management Left Footwear Right Footwear Pain Scale: 0-10 Numeric Is Patient Pain Free? Yes - Nurse 1 - General Ulcer Measurement Start: 11/12/21 14:26 Freq: Status: Active Protocol: Activity Type Activity Date Activity User E-Sign Co-Sign Detail Recorded Client Recorded Date Recorded By Document 11/12/21 14:32 DL [id number] 11/12/21 14:45 DL Document 11/19/21 11:05 MT [id number] 11/19/21 11:14 MT Document 11/26/21 09:15 DL [id number] 11/26/21 09:27 DL Document 12/03/21 09:16 RB [id number] 12/03/21 09:25 RB 11/12/21 11/19/21 11/26/21 14:32 11:05 09:15 Wound Center Nurse 1 3. L lateral LE -Combined with other wound -Current Size (cm) - Length 9 15 14.2 -Current Size (cm) - Width 1.6 1.7 1 -Current Size (cm) - Depth 0.1 0.1 0.1 -Total Square Cm 14.4 25.5 14.2 -Photo Taken No No -Tunneling -Undermining/Tunneling -Circular Undermining -Exudate Amt Medium Small Small -Exudate Type Sanguineous Serosanguineous Serosanguineous -Wound Margin Distinct, Flat & Intact Distinct, Outline Outline Attached Attached -Granulation Amt Large (67-100%) Large (67-100%) Large (67-100%) -Granulation Quality Red Pale,[place] Red -Slough/Fibrin -Necrosis Amt Small (1-33%) Small (1-33%) -Necrotic Tissue Type Adherent Slough Adherent Slough -Structure Exposed N/A N/A -Texture (Frances-wound Skin Appearance) Scarring Assessed Scarring -Moisture (Frances-wound Skin Appearance) No Abnormality Assessed Dry/Scaly -Color (Frances-wound Skin Appearance) No Abnormality Assessed Hemosiderin Staining -Temperature (Frances-wound Skin No Abnormality No Abnormality No Abnormality Appearance) (Pt Warm) (Pt Warm) (Pt Warm) -Tenderness on Palpation (Frances-wound No No No Skin Appearance) -Ulcer Cleansing Soap and Water Soap and Water Soap and Water -Foul Odor after Cleansing No No No -Anesthetic Used 4% Lidocaine 4% Lidocaine 5% Lidocaine Solution Solution Gel 2. L dorsal foot -Combined with other wound -Current Size (cm) - Length 3 5.1 4.3 -Current Size (cm) - Width 3.4 4.5 3.5 -Current Size (cm) - Depth 0.1 0.1 0.1 -Total Square Cm 10.2 22.95 15.05 -Photo Taken No No -Tunneling -Undermining/Tunneling -Circular Undermining -Exudate Amt Medium Medium Medium -Exudate Type Serosanguineous Yellow/Green Serosanguineous -Wound Margin Distinct, Well Defined, Distinct, Outline Not Attached Outline Attached Attached -Granulation Amt Large (67-100%) Large (67-100%) Large (67-100%) -Granulation Quality [place],Red Red [place],Red -Slough/Fibrin -Necrosis Amt None Present (0 Small (1-33%) %) -Necrotic Tissue Type Adherent Slough -Structure Exposed N/A N/A -Texture (Frances-wound Skin Appearance) Scarring Assessed Scarring -Moisture (Frances-wound Skin Appearance) No Abnormality Assessed No Abnormality -Color (Frances-wound Skin Appearance) No Abnormality Assessed Hemosiderin Staining -Temperature (Frances-wound Skin No Abnormality No Abnormality Appearance) (Pt Warm) (Pt Warm) -Tenderness on Palpation (Frances-wound No No No Skin Appearance) -Ulcer Cleansing Soap and Water Rinsed/ Soap and Water Irrigated with Saline -Foul Odor after Cleansing No Yes, Due to Product Use -Anesthetic Used 4% Lidocaine 4% Lidocaine 5% Lidocaine Solution Solution Gel Lower Limb Edema Present NA Left Calf (cm) 25 Left Ankle (cm) 19.5 12/03/21 09:16 Wound Center Nurse 1 3. L lateral LE -Combined with other wound No -Current Size (cm) - Length 15.7 -Current Size (cm) - Width 2 -Current Size (cm) - Depth 0.1 -Total Square Cm 31.4 -Photo Taken -Tunneling No -Undermining/Tunneling No -Circular Undermining No -Exudate Amt Large -Exudate Type Serosanguineous -Wound Margin Distinct, Outline Attached -Granulation Amt Small (1-33%) -Granulation Quality [place] -Slough/Fibrin Yes -Necrosis Amt Large (67-100%) -Necrotic Tissue Type Adherent Slough -Structure Exposed N/A -Texture (Frances-wound Skin Appearance) Assessed, Scarring -Moisture (Frances-wound Skin Appearance) Dry/Scaly -Color (Frances-wound Skin Appearance) Assessed -Temperature (Frances-wound Skin No Abnormality Appearance) (Pt Warm) -Tenderness on Palpation (Frances-wound No Skin Appearance) -Ulcer Cleansing Wound Cleanser -Foul Odor after Cleansing No -Anesthetic Used 4% Lidocaine Solution 2. L dorsal foot -Combined with other wound No -Current Size (cm) - Length 4.2 -Current Size (cm) - Width 3.4 -Current Size (cm) - Depth 0.1 -Total Square Cm 14.28 -Photo Taken -Tunneling No -Undermining/Tunneling No -Circular Undermining No -Exudate Amt Medium -Exudate Type Serosanguineous -Wound Margin Distinct, Outline Attached -Granulation Amt Medium (34-66%) -Granulation Quality [place] -Slough/Fibrin Yes -Necrosis Amt Large (67-100%) -Necrotic Tissue Type Adherent Slough -Structure Exposed N/A -Texture (Frances-wound Skin Appearance) Assessed, Scarring -Moisture (Frances-wound Skin Appearance) Assessed -Color (Frances-wound Skin Appearance) Assessed -Temperature (Frances-wound Skin No Abnormality Appearance) (Pt Warm) -Tenderness on Palpation (Frances-wound No Skin Appearance) -Ulcer Cleansing Wound Cleanser -Foul Odor after Cleansing No -Anesthetic Used 4% Lidocaine Solution Lower Limb Edema Present Yes Left Calf (cm) 32.5 Left Ankle (cm) 20.4 WC - Nurse 2 - General Ulcer CM Notes Start: 11/12/21 14:26 Freq: Status: Active Protocol: Activity Type Activity Date Activity User E-Sign Co-Sign Detail Recorded Client Recorded Date Recorded By Document 11/12/21 16:41 [id number] 11/12/21 16:46 Document 11/19/21 11:21 [id number] 11/19/21 11:27 Document 11/26/21 09:39 [id number] 11/26/21 09:44 Document 12/03/21 09:38 [id number] 12/03/21 09:40 11/12/21 11/19/21 11/26/21 16:41 11:21 09:39 Wound Center Nurse 2 3. L lateral LE -Time 16:42 11:21 09:40 -Correct Patient Yes Yes Yes -Correct Side, Site, Position Yes Yes Yes -Correct Procedure Yes Yes Yes -Procedure Performed Yes Yes Yes -Type of Procedure Debridement Debridement Debridement -Clinical Debridement Subcutaneous Subcutaneous Subcutaneous -Tissue Removed Subcutaneous Subcutaneous Subcutaneous -Post Debridement (cm) - Length 9 15.1 14.3 -Post Debridement (cm) - Width 1.7 1.7 1.0 -Post Debridement (cm) - Depth 0.1 0.1 0.1 -Total Square (Post) (cm) 15.3 25.67 14.30 -Area of Debridement (cm) - Length 9 15.1 14.3 -Area of Debridement (cm) - Width 1.7 1.7 1.0 -Total Square (Area) (cm) 15.3 25.67 14.30 -Tunneling No No No -Undermining/Tunneling No No No -Circular Undermining No No No -Wound/Ulcer Outcome Not Healed Not Healed Not Healed -Ulcer Cleansing Rinsed/ Rinsed/ Rinsed/ Irrigated with Irrigated with Irrigated with Saline Saline Saline -Foul Odor after Cleansing No No No -Bioengineered Tissue Yes No No -Type of Bioengineered Tissue Epifix Mesh -Expiration Date 07/09/26 -Product Lot Number [id number] -Percent Used 100 -Lot number of Saline Used [id number] -Bleeding Controlled with Pressure Pressure,Silver Pressure Nitrate -Offloading No No No -Treatment Response Procedure Procedure Procedure Tolerated Well Tolerated Well Tolerated Well -Debridement - Subq, 1st 20sq cm No No Yes -Apply Skin Sub - 1st 25 sq cm - Legs 1 -Apply Skin Sub - each addt'l 25 sq cm - Legs -Epifix Mesh (per sq cm) 11 2. L dorsal foot -Time 16:44 11:22 -Correct Patient Yes Yes Yes -Correct Side, Site, Position Yes Yes Yes -Correct Procedure Yes Yes Yes -Procedure Performed Yes Yes Yes -Type of Procedure Debridement Debridement Debridement -Clinical Debridement Subcutaneous Subcutaneous Subcutaneous -Tissue Removed Subcutaneous Subcutaneous Subcutaneous -Post Debridement (cm) - Length 3.0 5.2 4.4 -Post Debridement (cm) - Width 3.5 4.5 3.5 -Post Debridement (cm) - Depth 0.1 0.1 0.1 -Total Square (Post) (cm) 10.50 23.40 15.40 -Area of Debridement (cm) - Length 3.0 5.2 4.4 -Area of Debridement (cm) - Width 3.5 4.5 3.5 -Total Square (Area) (cm) 10.50 23.40 15.40 -Tunneling No No No -Undermining/Tunneling No No No -Circular Undermining No No No -Wound/Ulcer Outcome Not Healed Not Healed Not Healed -Ulcer Cleansing Rinsed/ Rinsed/ Rinsed/ Irrigated with Irrigated with Irrigated with Saline Saline Saline -Foul Odor after Cleansing No No No -Bioengineered Tissue No No Yes -Type of Bioengineered Tissue Epifix Mesh -Expiration Date 08/08/26 -Product Lot Number [id number] -Percent Used 100 -Lot number of Saline Used [id number] -Bleeding Controlled with Pressure Pressure,Silver Pressure Nitrate -Offloading No No No -Treatment Response Procedure Procedure Procedure Tolerated Well Tolerated Well Tolerated Well -Debridement - Subq, 1st 20sq cm Yes Yes No -Debridement, SubQ, ea addt'l 20sq cm 2 or part thereof -Apply Skin Sub - 1st 25 sq cm - Feet 1 -Epifix Mesh (per sq cm) 11 Pain Scale: 0-10 Numeric Is Patient Pain Free? Yes Yes Yes 12/03/21 09:38 Wound Center Nurse 2 3. L lateral LE -Time 09:38 -Correct Patient Yes -Correct Side, Site, Position Yes -Correct Procedure Yes -Procedure Performed Yes -Type of Procedure Debridement -Clinical Debridement Subcutaneous -Tissue Removed Subcutaneous -Post Debridement (cm) - Length 15.7 -Post Debridement (cm) - Width 2.1 -Post Debridement (cm) - Depth 0.1 -Total Square (Post) (cm) 32.97 -Area of Debridement (cm) - Length 15.7 -Area of Debridement (cm) - Width 2.1 -Total Square (Area) (cm) 32.97 -Tunneling No -Undermining/Tunneling No -Circular Undermining No -Wound/Ulcer Outcome Not Healed -Ulcer Cleansing Rinsed/ Irrigated with Saline -Foul Odor after Cleansing -Bioengineered Tissue Yes -Type of Bioengineered Tissue Epifix Mesh -Expiration Date 08/08/26 -Product Lot Number [id number] -Percent Used 100 -Lot number of Saline Used [id number] -Bleeding Controlled with Pressure -Offloading No -Treatment Response Procedure Tolerated Well -Debridement - Subq, 1st 20sq cm No -Apply Skin Sub - 1st 25 sq cm - Legs 1 -Apply Skin Sub - each addt'l 25 sq cm 1 - Legs -Epifix Mesh (per sq cm) 11 2. L dorsal foot -Time 09:39 -Correct Patient Yes -Correct Side, Site, Position Yes -Correct Procedure Yes -Procedure Performed Yes -Type of Procedure Debridement -Clinical Debridement Subcutaneous -Tissue Removed Subcutaneous -Post Debridement (cm) - Length 4.2 -Post Debridement (cm) - Width 3.5 -Post Debridement (cm) - Depth 0.1 -Total Square (Post) (cm) 14.70 -Area of Debridement (cm) - Length 4.2 -Area of Debridement (cm) - Width 3.5 -Total Square (Area) (cm) 14.70 -Tunneling No -Undermining/Tunneling No -Circular Undermining No -Wound/Ulcer Outcome Not Healed -Ulcer Cleansing Rinsed/ Irrigated with Saline -Foul Odor after Cleansing No -Bioengineered Tissue No -Type of Bioengineered Tissue -Expiration Date -Product Lot Number -Percent Used -Lot number of Saline Used -Bleeding Controlled with Pressure -Offloading No -Treatment Response Procedure Tolerated Well -Debridement - Subq, 1st 20sq cm Yes -Debridement, SubQ, ea addt'l 20sq cm or part thereof -Apply Skin Sub - 1st 25 sq cm - Feet -Epifix Mesh (per sq cm) Pain Scale: 0-10 Numeric Is Patient Pain Free? Yes WC - Nurse 3 - General Ulcer D/C NN Start: 11/12/21 14:26 Freq: Status: Active Protocol: Activity Type Activity Date Activity User E-Sign Co-Sign Detail Recorded Client Recorded Date Recorded By Document 11/19/21 11:55 DL [id number] 11/19/21 11:56 DL Document 11/26/21 09:59 DL [id number] 11/26/21 10:01 DL Document 12/03/21 09:51 RB [id number] 12/03/21 09:54 RB 11/19/21 11/26/21 12/03/21 11:55 09:59 09:51 Wound Care Nurse 3 3. L lateral LE -Ulcer Cleansing Rinsed/ Irrigated with Saline -Foul Odor after Cleansing No No -Primary Dressing Applied C Hydrogel ($) -Other Dressing EpiMesh abd, kerlix , alejandro -Primary Dressing Covered/Secured with Dry Gauze & Dry Gauze & Dry Gauze,Dry Roll Gauze, Roll Gauze, Gauze & Roll Secured with Secured with Gauze,Secured Tape Tape with Tape -Other Covering alejandro 2. L dorsal foot -Ulcer Cleansing Rinsed/ Irrigated with Saline -Foul Odor after Cleansing No No -Other Dressing hydrogel EpiMesh hydrogel dry areas, abd, kerlix, alejandro -Primary Dressing Covered/Secured with Dry Gauze & Dry Gauze & Roll Gauze, Roll Gauze, Secured with Secured with Tape Tape -Other Covering alejandro Treatment Response Procedure Procedure Procedure Tolerated Well Tolerated Well Tolerated Well Pain Scale: 0-10 Numeric Is Patient Pain Free? Yes Yes Yes WC - Visit Discharge Discharge Condition Stable Stable Stable Ambulatory Status Wheelchair Wheelchair Wheelchair Transportation Private Auto Private Auto Private Auto Accompanied by faMILY mtila Medication Reconcilliation completed & No provided to patient/care provider Clinical Summary of Care Provided Yes Facility Type Home Health Home Health Orders Sent Yes 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: CODE(S): L97.922 - Non-pressure chronic ulcer of unspecified part of left lower leg with fat layer exposed (5) 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: CODE(S): L97.923 - Non-pressure chronic ulcer of unspecified part of left lower leg with necrosis of muscle (6) Type 2 diabetes mellitus with diabetic polyneuropathy: CODE(S): E11.42 - Type 2 diabetes mellitus with diabetic polyneuropathy QUALIFIERS: Diabetes mellitus fpc insulin use: with fpc use Qualified Code(s): E11.42 - Type 2 diabetes mellitus with diabetic polyneuropathy; Z79.4 - prison (current) use of 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 Debridement was performed today as noted in the clinical panel to all of the ulcer sites. The following work up and care recommendations were made: Dressing: Keep secondary dressing including a wound veil and Steri-Strips over the epi fix intact, clean, and dry anterior lower leg and proximal lateral leg. change distal lateral leg daily with hydrogel. silver nitrate applied today to this site. Wash: Antibacterial soap and water Tissue growth optimization: She would benefit from application of advanced wound healing product, epi fix. This is medically necessary for limb salvage. This was applied according standard protocol after verbal consent. This was secured in place with a wound veil and Steri-Strips. She tolerated this. To keep clean, dry, and intact to the anterior leg, left. 100% of the product was utilized. Offload: Continue offloading pillow to take pressure off of the back of her leg in front of her ankle.ok to place partial weight to plantar left foot at this time. To avoid excessive ambulation which she is not doing anyways at this time. Vascular: She is under the care of Dr. Aguilar, vascular surgeon. On 08-20-21 she had catheterization in place to the anterior tibial artery and a balloon angioplasty performed in the popliteal into the proximal anterior tib. To follow-up as scheduled. Additional intervention is not planned at this time and she reports she followed with Dr. Aguilar this morning who wrote recommended monitoring her staged improvement. To continue on Plavix. Edema: Alejandro wrap applied Infection: This has resolved and her surgical site has also healed. She was previously under the care of infectious disease specialist. Wound cx and surg cx with MRSA, raoultella, citrobacter. Clearance cx with some MRSA and anaerobes. Superficial raoultella was R to cefepime, but surg cx was S and clearance cx was neg for GNR. She was on vanc/meropenem with stop date 09/19/21. There is resolution of local and systemic signs of illness at this time Pain: This is not present because of her neuropathy. Surgically, she had a transmetatarsal amputation and debridement of the ulcers on 08-08-21 at [facility]. Host factors: She is diabetic and her hemoglobin A1c was recently improved to 6.9% (08-07-21). To continue to work with primary care physician on medical management. I recommend nutritional supplementation optimize healing. She is on Vlad and Glucerna. I answered all the patient's questions. To return to the wound healing center in 1 week or call sooner if the patient has any questions or concerns.
== END 2021-12-08 23:59 ==
LOC: WC 09:30
PROVIDERS: PCP Family Medicine Geriatric Medicine; Visit Provider Podiatrist
DX: E11.622 Type 2 diabetes mellitus with other skin ulcer (principal); L97.322 Non-pressure chronic ulcer of left ankle with fat layer exposed; L97.923 Non-pressure chronic ulcer of unspecified part of left lower leg with necrosis of muscle; E44.0 Moderate protein-calorie malnutrition; N17.9 Acute kidney failure, unspecified; M86.9 Osteomyelitis, unspecified; E11.42 Type 2 diabetes mellitus with diabetic polyneuropathy; I73.9 Peripheral vascular disease, unspecified; Z79.4 Long term (current) use of insulin; R60.0 Localized edema; L92.9 Granulomatous disorder of the skin and subcutaneous tissue, unspecified
CPT/HCPCS: 11042; 11045; 15271; 15272; 15275; 36415; 80069; Q4186

== ENCOUNTER 2021-12-10 10:33 | Outpatient (CLI) | payer MEDICARE, SELFPAY ==
[2021-12-10 11:31] LABS: Thyroid Stim Hormone (TSH) 0.01 uIU/mL (0.358-3.74)
== END 2021-12-10 23:59 | disposition short-term general hospital (02) ==
LOC: LAB 10:37
PROVIDERS: PCP Family Medicine Geriatric Medicine; Referring Provider Family Medicine Geriatric Medicine; Visit Provider Family Medicine Geriatric Medicine
DX: E05.90 Thyrotoxicosis, unspecified without thyrotoxic crisis or storm (principal)
CPT/HCPCS: 36415; 84443

== ENCOUNTER 2021-12-24 14:50 | Outpatient (CLI) | payer MEDICARE, SELFPAY ==
[2021-12-24 15:31] LABS: Absolute Lymphocyte Count 0.66 X10^3/uL (0.83-4.51); Absolute Neutrophil Count 12.3 X10^3/uL (2.0-7.7); Basophil# 0.02 X10^3/uL; Basophil% 0.1 % (0-1); Eosinophil# 0.02 X10^3/uL; Eosinophils% 0.1 % (0-5); Hemoglobin 10.7 g/dL (12.0-15.0); Lymphocyte # 0.66 X10^3/ul (0.83-4.51); Lymphocyte % 4.9 % (19-41); Mean Corp Hgb Conc 34.5 g/dL (32-36); Mean Corpuscular Volume 86.8 fL (81-99); Mean Platelet Vol. 10.5 fl (6.2-12.0); Monocyte# 0.44 X10^3/uL; Monocyte% 3.2 % (0-10); NRBC Flagged by Analyzer 0 % (0-5); Neutrophil # 12.32 X10^3/uL (2.7-7.7); Platelet Count 313 K/mm3 (150-450); RBC Distribution Width CV 13.6 % (11.6-14.6); RBC Distribution Width SD 42.5 fl (35.1-43.9); Red Blood Count 3.57 M/mm3 (4.2-5.4); White Blood Count 13.6 K/mm3 (4.4-11.0)
[2021-12-24 15:51] LABS: ALB/GLOB Ratio 0.8 RATIO (0.9-2.4); AST(SGOT) 15 U/L (15-37); Alanine Aminotransfer ALT/SGPT 30 U/L (13-56); Alkaline Phosphatase 78 U/L (45-117); Anion Gap 7 (5-15); BUN 65 mg/dL (7-18); BUN/Creat Ratio 29.5 RATIO (10-20); Calcium,Total 8.1 mg/dL (8.5-10.1); Chloride 109 mmol/L (98-107); EST Glomerular Filtration Rate 23 mL/min (>60); Est Glom Filt Rate - Afr Amer 28 mL/min (>60); Globulin 3.7 g/dL (2.2-4.2); Glucose 291 mg/dL (74-106); Phosphorus 3.1 mg/dL (2.5-4.9); Potassium 5.1 mmol/L (3.5-5.1); Protein, Total 6.7 g/dL (6.4-8.2); Sodium Level 136 mmol/L (136-145); Thyroid Stim Hormone (TSH) 0.01 uIU/mL (0.358-3.74)
== END 2021-12-24 23:59 | disposition home or self-care (01) ==
LOC: POLAB3 14:51
PROVIDERS: Internal Medicine Nephrology; PCP Family Medicine Geriatric Medicine; Visit Provider Family Medicine Geriatric Medicine
DX: D64.9 Anemia, unspecified (principal); E11.65 Type 2 diabetes mellitus with hyperglycemia; N18.31 Chronic kidney disease, stage 3a; N39.0 Urinary tract infection, site not specified; I12.9 Hypertensive chronic kidney disease with stage 1 through stage 4 chronic kidney disease, or unspecified chronic kidney disease; E55.9 Vitamin D deficiency, unspecified
CPT/HCPCS: 36415; 80053; 84100; 84443; 85025; 87086

== ENCOUNTER 2021-12-24 15:00 | Outpatient (RCR) | payer MEDICARE, MEDICAID, SELFPAY ==
[2021-12-09 00:40] VITALS: BP 188/75; PULSE 75; RESP 18; TEMP 36.5; BMI 36.6
[2021-12-10 09:35] VITALS: BP 179/80; PULSE 56; RESP 18; TEMP 36.2; BMI 36.6
--- NOTE | 2021-12-10 11:26 | PCM.WC.PN ---
History of Present Illness Date of Service: 12/10/21 Chief Complaint: Diabetic left heel ulcer with osteomyelitis History of Wound: This 71-year-old female following up for left transmetatarsal amputation for treatment of gangrene and osteomyelitis of limb threatening infection that was performed at [facility] on 08-08-21. She is also following up for anterior left ankle and posterior left leg ulcers. She is now home with family. She also recently had vascular surgery intervention and continues on Plavix. She is taking nutritional supplementation. She is ready for epifix application again today. She is with her granddaughter. Progress of Wound: Improving Objective Data Objective Data Vital Signs: Vital Signs Temp Pulse Resp BP 97.2 F L 56 L 18 179/80 H 12/10/21 09:35 12/10/21 09:35 12/10/21 09:35 12/10/21 09:35 Weight: 90.904 kg Body Mass Index (BMI) 36.6 Physical Exam Extremity Extremity Narrative: Left foot Transmetatarsal amputation. There is healing anterior ankle ulcer down to subcutaneous tissue (decreased size) and no longer exposed tendon, and also healing posterior distal leg ulcer down to subcutaneous tissue with no evidence of infection to these ulcer sites, margins viable, no malodor. resolved hypergranulation tissue noted. Also granular base also to the lateral left leg with some returned distal hypergranulation tissue noted also. There is no longer any eschar or deep tissue exposure. There is no crepitus, no visible abscess noted to the left foot, ankle or leg. Decreased sensation to the left foot c/w chronic peripheral neuropathy, no evidence of acute ischemia to the bilateral foot or ankle, no evidence of charcot neuroarthropathy or compartment syndrome either. Reduced palpable pulse left. Lower extremity edema mild Debridement Note Debridement Note Wound debrided: left anterior leg/dorsal foot, left lateral leg Wound Grade/Stage: 2, 1 Type of Debridement: Excisional debridement Anesthesia Used: 4% Lidocaine Solution Depth: in the subcutaneous layer Percentage of wound debrided: 100 Instrument Used: #15 blade Tissue Removed: fibrous, devitalized subcutaneous, biofilm, slough Severity: Fat Layer Exposed Amount of bleeding with debridement: Mild Bleeding Controlled with: Pressure Patient tolerated procedure: Patient tolerated procedure well Post-Debridement Measurements and Additional Note: Post-Debridement Measurements/Treatment WC - Nurse 1 - General Ulcer Assessment Start: 12/10/21 09:35 Freq: Status: Active Protocol: [email or web address] Activity Type Activity Date Activity User E-Sign Co-Sign Detail Recorded Client Recorded Date Recorded By Document 12/10/21 09:35 [id number] 12/10/21 09:51 RB 12/10/21 09:35 WC - Today's Visit Information Type of service Follow-up 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 ) Arrival Mode Wheelchair Transfer Assistance Manual Patient Identification Verified (Name & Yes ) Height and Weight Body Mass Index (BMI) 36.6 BMI Classification Obese Vital Signs Temperature (97.8 F-99.1 F) 97.2 F L Temperature Source Temporal Pulse Rate (60-100) 56 L Pulse Location Monitor Respiratory Rate (12-18) 18 Respiratory rate source Observation Blood Pressure (90/60-120/80) 179/80 H Blood Pressure Mean (mm Hg) 113 Source Monitor Position Semi-Fowlers Blood Pressure Location Right Arm History Since Last Visit- (Skip if this is Patient's initial visit) Have you changed medications since your No last visit? Any new allergies or adverse reactions No Had a fall/change in ADL's that may No increase risk of falls Signs or symptoms of abuse and/or No neglect since last visit Have you been in the hospital since your No last visit? Has dressing in place as prescribed Yes Has compression in place as prescribed No Has offloadiing in place as prescribed No Experienced any changes in pain level or No management Pain Scale: 0-10 Numeric Is Patient Pain Free? Yes - Nurse 1 - General Ulcer Measurement Start: 12/10/21 09:35 Freq: Status: Active Protocol: Activity Type Activity Date Activity User E-Sign Co-Sign Detail Recorded Client Recorded Date Recorded By Document 12/10/21 09:35 RB [id number] 12/10/21 09:51 RB 12/10/21 09:35 Wound Center Nurse 1 3. L lateral LE -Combined with other wound No -Current Size (cm) - Length 8.5 -Current Size (cm) - Width 2.2 -Current Size (cm) - Depth 0.1 -Total Square Cm 18.70 -Photo Taken Yes -Tunneling No -Undermining/Tunneling No -Circular Undermining No -Exudate Amt Large -Exudate Type Serosanguineous -Wound Margin Distinct, Outline Attached -Granulation Amt Medium (34-66%) -Granulation Quality Red -Slough/Fibrin Yes -Necrosis Amt Large (67-100%) -Necrotic Tissue Type Adherent Slough -Structure Exposed N/A -Texture (Frances-wound Skin Appearance) Assessed, Scarring -Moisture (Frances-wound Skin Appearance) Dry/Scaly -Color (Frances-wound Skin Appearance) Hemosiderin Staining -Temperature (Frances-wound Skin No Abnormality Appearance) (Pt Warm) -Tenderness on Palpation (Frances-wound No Skin Appearance) -Ulcer Cleansing Wound Cleanser -Foul Odor after Cleansing No -Anesthetic Used 4% Lidocaine Solution 2. L dorsal foot -Combined with other wound No -Current Size (cm) - Length 3 -Current Size (cm) - Width 3.7 -Current Size (cm) - Depth 0.1 -Total Square Cm 11.1 -Photo Taken Yes -Tunneling No -Undermining/Tunneling No -Circular Undermining No -Exudate Amt Large -Exudate Type Serosanguineous -Wound Margin Distinct, Outline Attached -Granulation Amt Medium (34-66%) -Granulation Quality Red -Slough/Fibrin Yes -Necrosis Amt Large (67-100%) -Necrotic Tissue Type Adherent Slough -Structure Exposed N/A -Texture (Frances-wound Skin Appearance) Scarring -Moisture (Frances-wound Skin Appearance) Assessed -Color (Frances-wound Skin Appearance) Assessed -Temperature (Frances-wound Skin No Abnormality Appearance) (Pt Warm) -Tenderness on Palpation (Frances-wound No Skin Appearance) -Ulcer Cleansing Wound Cleanser -Anesthetic Used 4% Lidocaine Solution, Cetacaine WC - Nurse 2 - General Ulcer CM Notes Start: 12/10/21 09:35 Freq: Status: Active Protocol: Activity Type Activity Date Activity User E-Sign Co-Sign Detail Recorded Client Recorded Date Recorded By Document 12/10/21 10:12 [email or web address] [id number] 12/10/21 10:14 ALFREDO 12/10/21 10:12 Wound Center Nurse 2 3. L lateral LE -Time 10:12 -Correct Patient Yes -Correct Side, Site, Position Yes -Correct Procedure Yes -Procedure Performed Yes -Type of Procedure Debridement -Clinical Debridement Subcutaneous -Tissue Removed Dermis -Post Debridement (cm) - Length 8.5 -Post Debridement (cm) - Width 2.3 -Post Debridement (cm) - Depth 0.1 -Total Square (Post) (cm) 19.55 -Area of Debridement (cm) - Length 8.5 -Area of Debridement (cm) - Width 2.3 -Total Square (Area) (cm) 19.55 -Tunneling No -Undermining/Tunneling No -Circular Undermining No -Wound/Ulcer Outcome Not Healed -Ulcer Cleansing Rinsed/ Irrigated with Saline -Foul Odor after Cleansing No -Bioengineered Tissue No -Bleeding Controlled with Pressure,Silver Nitrate -Offloading No -Treatment Response Procedure Tolerated Well -Debridement - Subq, 1st 20sq cm Yes 2. L dorsal foot -Time 10:13 -Correct Patient Yes -Correct Side, Site, Position Yes -Correct Procedure Yes -Procedure Performed Yes -Type of Procedure Debridement -Clinical Debridement Subcutaneous -Tissue Removed Dermis -Post Debridement (cm) - Length 3.0 -Post Debridement (cm) - Width 3.8 -Post Debridement (cm) - Depth 0.1 -Total Square (Post) (cm) 11.40 -Area of Debridement (cm) - Length 3.0 -Area of Debridement (cm) - Width 3.8 -Total Square (Area) (cm) 11.40 -Tunneling No -Undermining/Tunneling No -Circular Undermining No -Wound/Ulcer Outcome Not Healed -Ulcer Cleansing Rinsed/ Irrigated with Saline -Foul Odor after Cleansing No -Bioengineered Tissue Yes -Type of Bioengineered Tissue Epifix Mesh -Expiration Date 08/08/26 -Product Lot Number [id number] -Percent Used 100 -Lot number of Saline Used [id number] -Bleeding Controlled with Pressure -Offloading Yes -Type of Offloading Surgical Shoe -Treatment Response Procedure Tolerated Well -Debridement - Subq, 1st 20sq cm No -Apply Skin Sub - 1st 25 sq cm - Legs 1 -Epifix Mesh (per sq cm) 11 Pain Scale: 0-10 Numeric Is Patient Pain Free? Yes WC - Nurse 3 - General Ulcer D/C NN Start: 12/10/21 09:35 Freq: Status: Active Protocol: Activity Type Activity Date Activity User E-Sign Co-Sign Detail Recorded Client Recorded Date Recorded By Document 12/10/21 10:24 RB [id number] 12/10/21 10:26 RB 12/10/21 10:24 Wound Care Nurse 3 3. L lateral LE -Ulcer Cleansing Rinsed/ Irrigated with Saline -Other Dressing hydogel, gauze, abd, kerlix, alejandro -Primary Dressing Covered/Secured with Dry Gauze,Dry Gauze & Roll Gauze,Secured with Tape 2. L dorsal foot -Primary Dressing Covered/Secured with Dry Gauze,Dry Gauze & Roll Gauze,Secured with Tape Treatment Response Procedure Tolerated Well Pain Scale: 0-10 Numeric Is Patient Pain Free? 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: CODE(S): L97.922 - Non-pressure chronic ulcer of unspecified part of left lower leg with fat layer exposed (5) 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: CODE(S): L97.923 - Non-pressure chronic ulcer of unspecified part of left lower leg with necrosis of muscle (6) Type 2 diabetes mellitus with diabetic polyneuropathy: CODE(S): E11.42 - Type 2 diabetes mellitus with diabetic polyneuropathy QUALIFIERS: Diabetes mellitus residential insulin use: with intermediate frame tender use Qualified Code(s): E11.42 - Type 2 diabetes mellitus with diabetic polyneuropathy; Z79.4 - intermediate designer (current) use of 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 Debridement was performed today as noted in the clinical panel to all of the ulcer sites. The following work up and care recommendations were made: Dressing: Keep secondary dressing including a wound veil and Steri-Strips over the epi fix intact, clean, and dry anterior lower leg and proximal lateral leg. change distal lateral leg daily with hydrogel. silver nitrate applied today to this site. silver nitrate applied to lateral leg Wash: Antibacterial soap and water Tissue growth optimization: She would benefit from application of advanced wound healing product, epi fix. This is medically necessary for limb salvage. This was applied according standard protocol after verbal consent. This was secured in place with a wound veil and Steri-Strips. She tolerated this. To keep clean, dry, and intact to the anterior leg, left. 100% of the product was utilized. Offload: Continue offloading pillow to take pressure off of the back of her leg in front of her ankle.ok to place partial weight to plantar left foot at this time. To avoid excessive ambulation which she is not doing anyways at this time. Vascular: She is under the care of Dr. Aguilar, vascular surgeon. On 08-20-21 she had catheterization in place to the anterior tibial artery and a balloon angioplasty performed in the popliteal into the proximal anterior tib. To follow-up as scheduled. Additional intervention is not planned at this time and she reports she followed with Dr. Aguilar this morning who wrote recommended monitoring her staged improvement. To continue on Plavix. Edema: Alejandro wrap applied Infection: This has resolved and her surgical site has also healed. She was previously under the care of infectious disease specialist. Wound cx and surg cx with MRSA, raoultella, citrobacter. Clearance cx with some MRSA and anaerobes. Superficial raoultella was R to cefepime, but surg cx was S and clearance cx was neg for GNR. She was on vanc/meropenem with stop date 09/19/21. There is resolution of local and systemic signs of illness at this time Pain: This is not present because of her neuropathy. Surgically, she had a transmetatarsal amputation and debridement of the ulcers on 08-08-21 at [facility]. Host factors: She is diabetic and her hemoglobin A1c was recently improved to 6.9% (08-07-21). To continue to work with primary care physician on medical management. I recommend nutritional supplementation optimize healing. She is on Vlad and Glucerna. I answered all the patient's questions. To return to the wound healing center in 1 week or call sooner if the patient has any questions or concerns.
[2021-12-16 13:15] VITALS: BP 196/67; PULSE 54; RESP 20; TEMP 36.3; BMI 36.6
--- NOTE | 2021-12-16 15:12 | PCM.WC.PN ---
History of Present Illness Date of Service: 12/16/21 Chief Complaint: Left lower extremity ulcers History of Wound: This 71-year-old female following up for left transmetatarsal amputation for treatment of gangrene and osteomyelitis of limb threatening infection that was performed at [facility] on 08-08-21. She is also following up for anterior left ankle and posterior lateral left leg ulcers. She is now home with family. She also recently had vascular surgery intervention and continues on Plavix. She is taking nutritional supplementation. She is ready for epifix application again today. She is with her granddaughter. Progress of Wound: Improving Objective Data Objective Data Vital Signs: Vital Signs Temp Pulse Resp BP 97.3 F L 54 L 20 H 196/67 H 12/16/21 13:15 12/16/21 13:15 12/16/21 13:15 12/16/21 13:15 Weight: 90.904 kg Body Mass Index (BMI) 36.6 Physical Exam Extremity Extremity Narrative: Left foot Transmetatarsal amputation. There is healing anterior ankle ulcer down to subcutaneous tissue (decreased size) and no longer exposed tendon, and also healing posterior distal leg ulcer down to subcutaneous tissue with no evidence of infection to these ulcer sites, margins viable, no malodor. Also hypergranular base also to the lateral left leg (distal and proximal). There is no longer any eschar or deep tissue exposure. There is no crepitus, no visible abscess noted to the left foot, ankle or leg. Decreased sensation to the left foot c/w chronic peripheral neuropathy, no evidence of acute ischemia to the bilateral foot or ankle, no evidence of charcot neuroarthropathy or compartment syndrome either. Reduced palpable pulse left. Lower extremity edema mild Debridement Note Debridement Note Wound debrided: anterior left ankle/leg Wound Grade/Stage: 2 Type of Debridement: Excisional debridement Anesthesia Used: 4% Lidocaine Solution Depth: in the subcutaneous layer Percentage of wound debrided: 100 Instrument Used: #15 blade Tissue Removed: fibrous, devitalized subcutaneous, biofilm, slough Severity: Fat Layer Exposed Amount of bleeding with debridement: Mild Bleeding Controlled with: Pressure Patient tolerated procedure: Patient tolerated procedure well Post-Debridement Measurements and Additional Note: Post-Debridement Measurements/Treatment SETH - Nurse 1 - General Ulcer Assessment Start: 12/10/21 09:35 Freq: Status: Active Protocol: MARILIA Activity Type Activity Date Activity User E-Sign Co-Sign Detail Recorded Client Recorded Date Recorded By Document 12/10/21 09:35 RB [id number] 12/10/21 09:51 RB Document 12/16/21 13:15 DL [id number] 12/16/21 13:32 DL 12/10/21 12/16/21 09:35 13:15 - Today's Visit Information Type of service Follow-up Visit Follow-up Visit (Physician/STRINGED INSTRUMENT ASSEMBLER (Physician/STRINGED INSTRUMENT ASSEMBLER ) ) Arrival Mode Wheelchair Wheelchair Transfer Assistance Manual None Patient Identification Verified (Name & Yes Yes ) Patient Requires Transmission-Based No Precautions Finger Stick Blood Sugar(mg/dl) (if 123 indicated): Height and Weight Body Mass Index (BMI) 36.6 36.6 BMI Classification Obese Obese Vital Signs Temperature (97.8 F-99.1 F) 97.2 F L 97.3 F L Temperature Source Temporal Temporal Pulse Rate (60-100) 56 L 54 L Pulse Location Monitor Monitor Respiratory Rate (12-18) 18 20 H Respiratory rate source Observation Observation Blood Pressure (90/60-120/80) 179/80 H 196/67 H Blood Pressure Mean (mm Hg) 113 110 Source Monitor Monitor Position Semi-Fowlers Blood Pressure Location Right Arm History Since Last Visit- (Skip if this is Patient's initial visit) Have you changed medications since your No No last visit? Any new allergies or adverse reactions No No Had a fall/change in ADL's that may No No increase risk of falls Signs or symptoms of abuse and/or No No neglect since last visit Have you been in the hospital since your No No last visit? Has dressing in place as prescribed Yes Yes Has compression in place as prescribed No Yes Has offloadiing in place as prescribed No Yes Experienced any changes in pain level or No No management Pain Scale: 0-10 Numeric Is Patient Pain Free? Yes Yes - Nurse 1 - General Ulcer Measurement Start: 12/10/21 09:35 Freq: Status: Active Protocol: Activity Type Activity Date Activity User E-Sign Co-Sign Detail Recorded Client Recorded Date Recorded By Document 12/10/21 09:35 RB [id number] 12/10/21 09:51 RB Document 12/16/21 13:15 DL [id number] 12/16/21 13:32 DL 12/10/21 12/16/21 09:35 13:15 Wound Center Nurse 1 3. L lateral LE -Combined with other wound No -Current Size (cm) - Length 8.5 14 -Current Size (cm) - Width 2.2 2 -Current Size (cm) - Depth 0.1 0.1 -Total Square Cm 18.70 28 -Photo Taken Yes No -Tunneling No -Undermining/Tunneling No -Circular Undermining No -Exudate Amt Large Medium -Exudate Type Serosanguineous Serosanguineous -Wound Margin Distinct, Distinct, Outline Outline Attached Attached -Granulation Amt Medium (34-66%) Large (67-100%) -Granulation Quality Red Hyper- granulation,Red -Slough/Fibrin Yes -Necrosis Amt Large (67-100%) Small (1-33%) -Necrotic Tissue Type Adherent Slough Adherent Slough -Structure Exposed N/A N/A -Texture (Frances-wound Skin Appearance) Assessed, Scarring Scarring -Moisture (Frances-wound Skin Appearance) Dry/Scaly No Abnormality -Color (Frances-wound Skin Appearance) Hemosiderin Hemosiderin Staining Staining -Temperature (Frances-wound Skin No Abnormality No Abnormality Appearance) (Pt Warm) (Pt Warm) -Tenderness on Palpation (Frances-wound No Yes Skin Appearance) -Ulcer Cleansing Wound Cleanser Soap and Water -Foul Odor after Cleansing No Yes, Due to Product Use -Anesthetic Used 4% Lidocaine 4% Lidocaine Solution Solution 2. L dorsal foot -Combined with other wound No -Current Size (cm) - Length 3 2.8 -Current Size (cm) - Width 3.7 1.8 -Current Size (cm) - Depth 0.1 0.1 -Total Square Cm 11.1 5.04 -Photo Taken Yes No -Tunneling No -Undermining/Tunneling No -Circular Undermining No -Exudate Amt Large Small -Exudate Type Serosanguineous Serous -Wound Margin Distinct, Indistinct, Non Outline -Visible Attached -Granulation Amt Medium (34-66%) Medium (34-66%) -Granulation Quality Red Red -Slough/Fibrin Yes -Necrosis Amt Large (67-100%) Medium (34-66%) -Necrotic Tissue Type Adherent Slough Adherent Slough -Structure Exposed N/A N/A -Texture (Frances-wound Skin Appearance) Scarring Scarring -Moisture (Frances-wound Skin Appearance) Assessed Dry/Scaly -Color (Frances-wound Skin Appearance) Assessed Hemosiderin Staining -Temperature (Frances-wound Skin No Abnormality No Abnormality Appearance) (Pt Warm) (Pt Warm) -Tenderness on Palpation (Frances-wound No No Skin Appearance) -Ulcer Cleansing Wound Cleanser Soap and Water -Foul Odor after Cleansing No -Anesthetic Used 4% Lidocaine 4% Lidocaine Solution, Solution Cetacaine WC - Nurse 2 - General Ulcer CM Notes Start: 12/10/21 09:35 Freq: Status: Active Protocol: Activity Type Activity Date Activity User E-Sign Co-Sign Detail Recorded Client Recorded Date Recorded By Document 12/10/21 10:12 [id number] 12/10/21 10:14 Document 12/16/21 14:23 [id number] 12/16/21 14:26 12/10/21 12/16/21 10:12 14:23 Wound Center Nurse 2 3. L lateral LE -Time 10:12 14:24 -Correct Patient Yes Yes -Correct Side, Site, Position Yes Yes -Correct Procedure Yes Yes -Procedure Performed Yes Yes -Type of Procedure Debridement Incision & Drainage -Clinical Debridement Subcutaneous Subcutaneous -Tissue Removed Dermis Subcutaneous -Post Debridement (cm) - Length 8.5 14 -Post Debridement (cm) - Width 2.3 2.1 -Post Debridement (cm) - Depth 0.1 0.1 -Total Square (Post) (cm) 19.55 29.4 -Area of Debridement (cm) - Length 8.5 14 -Area of Debridement (cm) - Width 2.3 2.1 -Total Square (Area) (cm) 19.55 29.4 -Tunneling No No -Undermining/Tunneling No No -Circular Undermining No No -Wound/Ulcer Outcome Not Healed Not Healed -Ulcer Cleansing Rinsed/ Rinsed/ Irrigated with Irrigated with Saline Saline -Foul Odor after Cleansing No No -Bioengineered Tissue No -Bleeding Controlled with Pressure,Silver Pressure,Silver Nitrate Nitrate -Offloading No No -Treatment Response Procedure Procedure Tolerated Well Tolerated Well -Debridement - Subq, 1st 20sq cm Yes Yes -Debridement, SubQ, ea addt'l 20sq cm 1 or part thereof 2. L dorsal foot -Time 10:13 14:25 -Correct Patient Yes Yes -Correct Side, Site, Position Yes Yes -Correct Procedure Yes Yes -Procedure Performed Yes Yes -Type of Procedure Debridement Debridement -Clinical Debridement Subcutaneous Subcutaneous -Tissue Removed Dermis Subcutaneous -Post Debridement (cm) - Length 3.0 1.2 -Post Debridement (cm) - Width 3.8 1.6 -Post Debridement (cm) - Depth 0.1 0.1 -Total Square (Post) (cm) 11.40 1.92 -Area of Debridement (cm) - Length 3.0 1.2 -Area of Debridement (cm) - Width 3.8 1.6 -Total Square (Area) (cm) 11.40 1.92 -Tunneling No No -Undermining/Tunneling No No -Circular Undermining No No -Wound/Ulcer Outcome Not Healed Not Healed -Ulcer Cleansing Rinsed/ Rinsed/ Irrigated with Irrigated with Saline Saline -Foul Odor after Cleansing No No -Bioengineered Tissue Yes Yes -Type of Bioengineered Tissue Epifix Mesh Epifix 18mm Disc -Expiration Date 08/08/26 09/08/26 -Product Lot Number [id number] -Percent Used 100 100 -Lot number of Saline Used [id number] -Bleeding Controlled with Pressure Pressure -Offloading Yes Yes -Type of Offloading Surgical Shoe Surgical Shoe -Treatment Response Procedure Procedure Tolerated Well Tolerated Well -Debridement - Subq, 1st 20sq cm No No -Apply Skin Sub - 1st 25 sq cm - Legs 1 -Apply Skin Sub - 1st 25 sq cm - Feet 1 -Epifix 18mm Disc 3 -Epifix Mesh (per sq cm) 11 Pain Scale: 0-10 Numeric Is Patient Pain Free? Yes Yes WC - Nurse 3 - General Ulcer D/C NN Start: 12/10/21 09:35 Freq: Status: Active Protocol: Activity Type Activity Date Activity User E-Sign Co-Sign Detail Recorded Client Recorded Date Recorded By Document 12/10/21 10:24 RB [id number] 12/10/21 10:26 RB Document 12/16/21 14:22 DL [id number] 12/16/21 14:24 DL 12/10/21 12/16/21 10:24 14:22 Wound Care Nurse 3 3. L lateral LE -Ulcer Cleansing Rinsed/ Rinsed/ Irrigated with Irrigated with Saline Saline -Foul Odor after Cleansing No -Other Dressing hydogel, gauze, hydrogel abd, kerlix, alejandro -Primary Dressing Covered/Secured with Dry Gauze,Dry Dry Gauze & Gauze & Roll Roll Gauze, Gauze,Secured Secured with with Tape Tape -Other Covering alejandro 2. L dorsal foot -Foul Odor after Cleansing No -Other Dressing Epifix -Primary Dressing Covered/Secured with Dry Gauze,Dry Dry Gauze & Gauze & Roll Roll Gauze, Gauze,Secured Secured with with Tape Tape Treatment Response Procedure Procedure Tolerated Well Tolerated Well Pain Scale: 0-10 Numeric Is Patient Pain Free? Yes Yes WC - Visit Discharge Discharge Condition Stable Stable Ambulatory Status Wheelchair Wheelchair Transportation Private Auto Private Auto Medication Reconcilliation completed & No provided to patient/care provider Clinical Summary of Care Provided Yes Notes: [facility] Facility Type Home Health Orders Sent 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: CODE(S): L97.922 - Non-pressure chronic ulcer of unspecified part of left lower leg with fat layer exposed (5) 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: CODE(S): L97.923 - Non-pressure chronic ulcer of unspecified part of left lower leg with necrosis of muscle (6) Type 2 diabetes mellitus with diabetic polyneuropathy: CODE(S): E11.42 - Type 2 diabetes mellitus with diabetic polyneuropathy QUALIFIERS: Diabetes mellitus penitentiary insulin use: with ad terminal makeup operator use Qualified Code(s): E11.42 - Type 2 diabetes mellitus with diabetic polyneuropathy; Z79.4 - director long term care (current) use of 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 Debridement was performed today as noted in the clinical panel to all of the ulcer sites. The following work up and care recommendations were made: Dressing: Keep secondary dressing including a wound veil and Steri-Strips over the epi fix intact, clean, and dry anterior lower leg. change distal lateral leg daily with hydrogel. silver nitrate applied today to this site. silver nitrate applied to lateral leg sites Wash: Antibacterial soap and water Tissue growth optimization: She would benefit from application of advanced wound healing product, epi fix. This is medically necessary for limb salvage. This was applied according standard protocol after verbal consent. This was secured in place with a wound veil and Steri-Strips. She tolerated this. To keep clean, dry, and intact to the anterior leg, left. 100% of the product was utilized. Offload: Continue offloading pillow to take pressure off of the back of her leg in front of her ankle.ok to place partial weight to plantar left foot at this time. To avoid excessive ambulation which she is not doing anyways at this time. Vascular: She is under the care of Dr. Aguilar, vascular surgeon. On 08-20-21 she had catheterization in place to the anterior tibial artery and a balloon angioplasty performed in the popliteal into the proximal anterior tib. To follow-up as scheduled. Additional intervention is not planned at this time and she reports she followed with Dr. Aguilar this morning who wrote recommended monitoring her staged improvement. To continue on Plavix. Edema: Alejandro wrap applied Infection: This has resolved and her surgical site has also healed. She was previously under the care of infectious disease specialist. Wound cx and surg cx with MRSA, raoultella, citrobacter. Clearance cx with some MRSA and anaerobes. Superficial raoultella was R to cefepime, but surg cx was S and clearance cx was neg for GNR. She was on vanc/meropenem with stop date 09/19/21. There is resolution of local and systemic signs of illness at this time Pain: This is not present because of her neuropathy. Surgically, she had a transmetatarsal amputation and debridement of the ulcers on 08-08-[address] [facility]. Host factors: She is diabetic and her hemoglobin A1c was recently improved to 6.9% (08-07-21). To continue to work with primary care physician on medical management. I recommend nutritional supplementation optimize healing. She is on Vlad and Glucerna. I answered all the patient's questions. To return to the wound healing center in 1 week or call sooner if the patient has any questions or concerns. 13 minutes was spent on this encounter. This included face to face and non face to face care including preparing for the visit, reviewing the history, performing the exam, counseling and providing education to the patient, family, or caregiver, ordering medications/test/ procedures if indicated as documented, communicating with other healthcare providers, documenting information in the medical record, interpreting / sharing this information when indicated as documented, and care coordination.
[2021-12-24 15:32] VITALS: BP 171/77; PULSE 54; RESP 16; TEMP 36.3; BMI 36.6
--- NOTE | 2021-12-24 16:38 | PN.PCM_ITS ---
History of Present Illness Date of Service: 12/24/21 Chief Complaint: Left lower extremity ulcers History of Wound: This 71-year-old female following up for left transmetatarsal amputation for treatment of gangrene and osteomyelitis of limb threatening infection that was performed at [facility] on 08-08-21. She is also following up for anterior left ankle and posterior lateral left leg ulcers. She is now home with family. She also recently had vascular surgery intervention and continues on Plavix. She is taking nutritional supplementation. She is ready for epifix application again today if appropriate. She is with her granddaughter. She was also seen by her primary care physician for her new dermatitis condition and wounds to her chest. She is referred to dermatology. Progress of Wound: Improving Objective Data Objective Data Vital Signs: Vital Signs Temp Pulse Resp BP 97.4 F L 54 L 16 171/77 H 12/24/21 15:32 12/24/21 15:32 12/24/21 15:32 12/24/21 15:32 Weight: 90.904 kg Body Mass Index (BMI) 36.6 Physical Exam Extremity Extremity Narrative: Left foot Transmetatarsal amputation. There is healing anterior ankle ulcer no longer exposed tendon. The skin is very friable and full epithelialization is noted. There is some eschar callus buildup and this was left intact. Also healing posterior distal leg ulcer down to subcutaneous tissue with no evidence of infection to these ulcer sites, margins viable, no malodor. Also a small region including hypergranular base also to the lateral left leg (distal). There is no longer any eschar or deep tissue exposure. There is no crepitus, no visible abscess noted to the left foot, ankle or leg. Decreased sensation to the left foot c/w chronic peripheral neuropathy, no evidence of acute ischemia to the bilateral foot or ankle, no evidence of charcot neuroarthropathy or compartment syndrome either. Reduced palpable pulse left. Lower extremity edema mild Debridement Note Debridement Note Wound debrided: lateral leg left Wound Grade/Stage: 1 Type of Debridement: Excisional debridement Anesthesia Used: 4% Lidocaine Solution Depth: in the subcutaneous layer Percentage of wound debrided: 100 Instrument Used: #15 blade Tissue Removed: fibrous, devitalized subcutaneous, biofilm, slough Severity: Fat Layer Exposed Amount of bleeding with debridement: Mild Bleeding Controlled with: Pressure Patient tolerated procedure: Patient tolerated procedure well Post-Debridement Measurements and Additional Note: Post-Debridement Measurements/Treatment - Nurse 1 - General Ulcer Assessment Start: 12/10/21 09:35 Freq: Status: Active Protocol: MARILIA Activity Type Activity Date Activity User E-Sign Co-Sign Detail Recorded Client Recorded Date Recorded By Document 12/10/21 09:35 RB [id number] 12/10/21 09:51 RB Document 12/16/21 13:15 DL [id number] 12/16/21 13:32 DL Document 12/24/21 15:32 DL [id number] 12/24/21 15:44 DL Edit Result 12/24/21 15:32 DL (1) [id number] 12/24/21 15:48 DL (1) Pulse Rate (60-100) => 54 L Pulse Location => Monitor Respiratory Rate (12-18) 18 => 16 Blood Pressure (90/60-120/80) => 171/77 H Blood Pressure Mean (mm Hg) => 108 12/10/21 12/16/21 12/24/21 09:35 13:15 15:32 - Today's Visit Information Type of service Follow-up Visit Follow-up Visit Follow-up Visit (Physician/OVERNIGHT BABYSITTER (Physician/OVERNIGHT BABYSITTER (Physician/OVERNIGHT BABYSITTER ) ) ) Arrival Mode Wheelchair Wheelchair Wheelchair Transfer Assistance Manual None Manual Transfer Assist (Other) x1 Patient Identification Verified (Name & Yes Yes Yes ) Patient Requires Transmission-Based No Precautions Safety Precautions Fall Prevention Finger Stick Blood Sugar(mg/dl) (if 123 indicated): Blood Sugar Stated by Patient Height and Weight Body Mass Index (BMI) 36.6 36.6 36.6 BMI Classification Obese Obese Obese Vital Signs Temperature (97.8 F-99.1 F) 97.2 F L 97.3 F L 97.4 F L Temperature Source Temporal Temporal Temporal Pulse Rate (60-100) 56 L 54 L 54 L Pulse Location Monitor Monitor Monitor Respiratory Rate (12-18) 18 20 H 16 Respiratory rate source Observation Observation Observation Blood Pressure (90/60-120/80) 179/80 H 196/67 H 171/77 H Blood Pressure Mean (mm Hg) 113 110 108 Source Monitor Monitor Monitor Position Semi-Fowlers Blood Pressure Location Right Arm History Since Last Visit- (Skip if this is Patient's initial visit) Have you changed medications since your No No No last visit? Any new allergies or adverse reactions No No No Had a fall/change in ADL's that may No No No increase risk of falls Signs or symptoms of abuse and/or No No No neglect since last visit Have you been in the hospital since your No No No last visit? Has dressing in place as prescribed Yes Yes Yes Has compression in place as prescribed No Yes Yes Has offloadiing in place as prescribed No Yes Yes Experienced any changes in pain level or No No No management Left Footwear No Footwear Right Footwear No Footwear Pain Scale: 0-10 Numeric Is Patient Pain Free? Yes Yes Yes WC - Nurse 1 - General Ulcer Measurement Start: 12/10/21 09:35 Freq: Status: Active Protocol: Activity Type Activity Date Activity User E-Sign Co-Sign Detail Recorded Client Recorded Date Recorded By Document 12/10/21 09:35 RB [id number] 12/10/21 09:51 RB Document 12/16/21 13:15 DL [id number] 12/16/21 13:32 DL Document 12/24/21 15:32 DL [id number] 12/24/21 15:44 DL 12/10/21 12/16/21 12/24/21 09:35 13:15 15:32 Wound Center Nurse 1 3. L lateral LE -Combined with other wound No -Current Size (cm) - Length 8.5 14 15 -Current Size (cm) - Width 2.2 2 1.5 -Current Size (cm) - Depth 0.1 0.1 0.1 -Total Square Cm 18.70 28 22.5 -Photo Taken Yes No No -Tunneling No -Undermining/Tunneling No -Circular Undermining No -Exudate Amt Large Medium Medium -Exudate Type Serosanguineous Serosanguineous Serosanguineous -Wound Margin Distinct, Distinct, Distinct, Outline Outline Outline Attached Attached Attached -Granulation Amt Medium (34-66%) Large (67-100%) Large (67-100%) -Granulation Quality Red Hyper- Red granulation,Red -Slough/Fibrin Yes -Necrosis Amt Large (67-100%) Small (1-33%) Small (1-33%) -Necrotic Tissue Type Adherent Slough Adherent Slough Adherent Slough -Structure Exposed N/A N/A N/A -Texture (Frances-wound Skin Appearance) Assessed, Scarring Scarring Scarring -Moisture (Frances-wound Skin Appearance) Dry/Scaly No Abnormality Dry/Scaly -Color (Frances-wound Skin Appearance) Hemosiderin Hemosiderin No Abnormality Staining Staining -Temperature (Frances-wound Skin No Abnormality No Abnormality No Abnormality Appearance) (Pt Warm) (Pt Warm) (Pt Warm) -Tenderness on Palpation (Frances-wound No Yes No Skin Appearance) -Ulcer Cleansing Wound Cleanser Soap and Water Soap and Water -Foul Odor after Cleansing No Yes, Due to No Product Use -Anesthetic Used 4% Lidocaine 4% Lidocaine 4% Lidocaine Solution Solution Solution 2. L dorsal foot -Combined with other wound No -Current Size (cm) - Length 3 2.8 0.1 -Current Size (cm) - Width 3.7 1.8 0.1 -Current Size (cm) - Depth 0.1 0.1 0.1 -Total Square Cm 11.1 5.04 0.01 -Photo Taken Yes No No -Tunneling No -Undermining/Tunneling No -Circular Undermining No -Exudate Amt Large Small Small -Exudate Type Serosanguineous Serous Serosanguineous -Wound Margin Distinct, Indistinct, Non Thickened Outline -Visible Attached -Granulation Amt Medium (34-66%) Medium (34-66%) None Present (0 %) -Granulation Quality Red Red -Slough/Fibrin Yes -Necrosis Amt Large (67-100%) Medium (34-66%) Large (67-100%) -Necrotic Tissue Type Adherent Slough Adherent Slough Eschar -Structure Exposed N/A N/A N/A -Texture (Frances-wound Skin Appearance) Scarring Scarring Scarring -Moisture (Frances-wound Skin Appearance) Assessed Dry/Scaly Dry/Scaly -Color (Frances-wound Skin Appearance) Assessed Hemosiderin No Abnormality Staining -Temperature (Frances-wound Skin No Abnormality No Abnormality No Abnormality Appearance) (Pt Warm) (Pt Warm) (Pt Warm) -Tenderness on Palpation (Frances-wound No No No Skin Appearance) -Ulcer Cleansing Wound Cleanser Soap and Water Soap and Water -Foul Odor after Cleansing No No -Anesthetic Used 4% Lidocaine 4% Lidocaine 4% Lidocaine Solution, Solution Solution Cetacaine WC - Nurse 2 - General Ulcer CM Notes Start: 12/10/21 09:35 Freq: Status: Active Protocol: Activity Type Activity Date Activity User E-Sign Co-Sign Detail Recorded Client Recorded Date Recorded By Document 12/10/21 10:12 [id number] 12/10/21 10:14 Document 12/16/21 14:23 [id number] 12/16/21 14:26 12/10/21 12/16/21 10:12 14:23 Wound Center Nurse 2 3. L lateral LE -Time 10:12 14:24 -Correct Patient Yes Yes -Correct Side, Site, Position Yes Yes -Correct Procedure Yes Yes -Procedure Performed Yes Yes -Type of Procedure Debridement Incision & Drainage -Clinical Debridement Subcutaneous Subcutaneous -Tissue Removed Dermis Subcutaneous -Post Debridement (cm) - Length 8.5 14 -Post Debridement (cm) - Width 2.3 2.1 -Post Debridement (cm) - Depth 0.1 0.1 -Total Square (Post) (cm) 19.55 29.4 -Area of Debridement (cm) - Length 8.5 14 -Area of Debridement (cm) - Width 2.3 2.1 -Total Square (Area) (cm) 19.55 29.4 -Tunneling No No -Undermining/Tunneling No No -Circular Undermining No No -Wound/Ulcer Outcome Not Healed Not Healed -Ulcer Cleansing Rinsed/ Rinsed/ Irrigated with Irrigated with Saline Saline -Foul Odor after Cleansing No No -Bioengineered Tissue No -Bleeding Controlled with Pressure,Silver Pressure,Silver Nitrate Nitrate -Offloading No No -Treatment Response Procedure Procedure Tolerated Well Tolerated Well -Debridement - Subq, 1st 20sq cm Yes Yes -Debridement, SubQ, ea addt'l 20sq cm 1 or part thereof 2. L dorsal foot -Time 10:13 14:25 -Correct Patient Yes Yes -Correct Side, Site, Position Yes Yes -Correct Procedure Yes Yes -Procedure Performed Yes Yes -Type of Procedure Debridement Debridement -Clinical Debridement Subcutaneous Subcutaneous -Tissue Removed Dermis Subcutaneous -Post Debridement (cm) - Length 3.0 1.2 -Post Debridement (cm) - Width 3.8 1.6 -Post Debridement (cm) - Depth 0.1 0.1 -Total Square (Post) (cm) 11.40 1.92 -Area of Debridement (cm) - Length 3.0 1.2 -Area of Debridement (cm) - Width 3.8 1.6 -Total Square (Area) (cm) 11.40 1.92 -Tunneling No No -Undermining/Tunneling No No -Circular Undermining No No -Wound/Ulcer Outcome Not Healed Not Healed -Ulcer Cleansing Rinsed/ Rinsed/ Irrigated with Irrigated with Saline Saline -Foul Odor after Cleansing No No -Bioengineered Tissue Yes Yes -Type of Bioengineered Tissue Epifix Mesh Epifix 18mm Disc -Expiration Date 08/08/26 09/08/26 -Product Lot Number [id number] -Percent Used 100 100 -Lot number of Saline Used [id number] -Bleeding Controlled with Pressure Pressure -Offloading Yes Yes -Type of Offloading Surgical Shoe Surgical Shoe -Treatment Response Procedure Procedure Tolerated Well Tolerated Well -Debridement - Subq, 1st 20sq cm No No -Apply Skin Sub - 1st 25 sq cm - Legs 1 -Apply Skin Sub - 1st 25 sq cm - Feet 1 -Epifix 18mm Disc 3 -Epifix Mesh (per sq cm) 11 Pain Scale: 0-10 Numeric Is Patient Pain Free? Yes Yes WC - Nurse 3 - General Ulcer D/C NN Start: 12/10/21 09:35 Freq: Status: Active Protocol: Activity Type Activity Date Activity User E-Sign Co-Sign Detail Recorded Client Recorded Date Recorded By Document 12/10/21 10:24 RB [id number] 12/10/21 10:26 RB Document 12/16/21 14:22 DL [id number] 12/16/21 14:24 DL Document 12/24/21 16:07 [facility] [id number] 12/24/21 16:09 BMF 12/10/21 12/16/21 12/24/21 10:24 14:22 16:07 Wound Care Nurse 3 3. L lateral LE -Ulcer Cleansing Rinsed/ Rinsed/ Rinsed/ Irrigated with Irrigated with Irrigated with Saline Saline Saline -Foul Odor after Cleansing No No -Primary Dressing Applied Aquacel AG 4x4 -Other Dressing hydogel, gauze, hydrogel abd, kerlix, alejandro -Primary Dressing Covered/Secured with Dry Gauze,Dry Dry Gauze & Dry Gauze & Gauze & Roll Roll Gauze, Roll Gauze, Gauze,Secured Secured with Secured with with Tape Tape Tape -Other Covering alejandro DRSG PER DL [employer] -Aquacel AG 4x4 1 2. L dorsal foot -Ulcer Cleansing Rinsed/ Irrigated with Saline -Foul Odor after Cleansing No No -Primary Dressing Applied Other -Other Dressing Epifix WOUND VEIL/ STERIS -Primary Dressing Covered/Secured with Dry Gauze,Dry Dry Gauze & Dry Gauze & Gauze & Roll Roll Gauze, Roll Gauze, Gauze,Secured Secured with Secured with with Tape Tape Tape,Other -Other Covering ABD; DRSG PER DL [employer] Left -Compression Wrap Alejandro Wrap Treatment Response Procedure Procedure Procedure Tolerated Well Tolerated Well Tolerated Well Pain Scale: 0-10 Numeric Is Patient Pain Free? Yes Yes Yes WC - Visit Discharge Discharge Condition Stable Stable Stable Ambulatory Status Wheelchair Wheelchair Wheelchair Transportation Private Auto Private Auto Private Auto Accompanied by ADELA LIANA Medication Reconcilliation completed & No provided to patient/care provider Clinical Summary of Care Provided Yes Notes: alejandro [facility] Facility Type Home Health Home Health Orders Sent 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: CODE(S): L97.922 - Non-pressure chronic ulcer of unspecified part of left lower leg with fat layer exposed (5) 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: CODE(S): L97.923 - Non-pressure chronic ulcer of unspecified part of left lower leg with necrosis of muscle (6) Type 2 diabetes mellitus with diabetic polyneuropathy: CODE(S): E11.42 - Type 2 diabetes mellitus with diabetic polyneuropathy QUALIFIERS: Diabetes mellitus chcf insulin use: with chcf use Qualified Code(s): E11.42 - Type 2 diabetes mellitus with diabetic polyneuropathy; 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 Debridement was performed today as noted in the clinical panel to all of the ulcer sites. The following work up and care recommendations were made: Dressing: Keep secondary dressing including a wound veil and Steri-Strips clean, and dry anterior lower leg. change distal lateral leg daily with hydrogel. silver nitrate applied today to this site. silver nitrate applied to lateral leg sites Wash: Antibacterial soap and water Tissue growth optimization: Additional application of advanced wound healing product will be considered at follow-up visits if the anterior leg site reopens. She has done well with this so far. Offload: Continue offloading pillow to take pressure off of the back of her leg in front of her ankle.ok to place partial weight to plantar left foot at this time. To avoid excessive ambulation which she is not doing anyways at this time. Vascular: She is under the care of Dr. Aguilar, vascular surgeon. On 08-20-21 she had catheterization in place to the anterior tibial artery and a balloon angioplasty performed in the popliteal into the proximal anterior tib. To follow-up as scheduled. Additional intervention is not planned at this time and she reports she followed with Dr. Aguilar this morning who wrote recommended monitoring her staged improvement. To continue on Plavix. Edema: Alejandro wrap applied Infection: This has resolved and her surgical site has also healed. She was previously under the care of infectious disease specialist. Wound cx and surg cx with MRSA, raoultella, citrobacter. Clearance cx with some MRSA and anaerobes. Superficial raoultella was R to cefepime, but surg cx was S and clearance cx was neg for GNR. She was on vanc/meropenem with stop date 09/19/21. There is resolution of local and systemic signs of illness at this time Pain: This is not present because of her neuropathy. Surgically, she had a transmetatarsal amputation and debridement of the ulcers on 08-08-21 at [facility] Host factors: She is diabetic and her hemoglobin A1c was recently improved to 6.9% (08-07-21). To continue to work with primary care physician on medical management. I recommend nutritional supplementation optimize healing. She is on Vlad and Glucerna. I answered all the patient's questions. To return to the wound healing center in 1 week or call sooner if the patient has any questions or concerns. Her recent primary care visit encounter is noted and she will follow-up with dermatology.
== END 2022-01-05 23:59 | disposition home or self-care (01) ==
LOC: WC 15:00
PROVIDERS: PCP Family Medicine Geriatric Medicine; Visit Provider Podiatrist
DX: E11.622 Type 2 diabetes mellitus with other skin ulcer (principal); L97.923 Non-pressure chronic ulcer of unspecified part of left lower leg with necrosis of muscle; L97.322 Non-pressure chronic ulcer of left ankle with fat layer exposed; E44.0 Moderate protein-calorie malnutrition; N17.9 Acute kidney failure, unspecified; M86.9 Osteomyelitis, unspecified; E11.42 Type 2 diabetes mellitus with diabetic polyneuropathy; I73.9 Peripheral vascular disease, unspecified; Z79.4 Long term (current) use of insulin; R60.0 Localized edema; L92.9 Granulomatous disorder of the skin and subcutaneous tissue, unspecified; Z79.899 Other long term (current) drug therapy
CPT/HCPCS: 11042; 11045; 15271; 15275; 36415; 80053; 84100; 84443; 85025; 87077; 87086; 87088; 87186; Q4186

== ENCOUNTER 2022-01-07 11:14 | Emergency (ER) | payer MEDICARE, MEDICAID, SELFPAY ==
[2022-01-07 11:15] VITALS: PULSE 67; RESP 18; TEMP 36.4; O2SAT 99; BMI 36.6
[2022-01-07 12:14] VITALS: BP 200/73
--- NOTE | 2022-01-07 12:15 | EX.ED.DYSGE1 ---
HPI History of Present Illness Chief Complaint: General Illness Informant: patient and family Narrative Narrative: Karen with a rash mostly on upper body. Its been present since July or August. They have been just managing it with topical dressings. They tried cortisone topically but no help. She has no fevers chills sweats. She has an appointment with dermatology in just under 2 weeks. She has not yet seen them. No other medications have been tried. They came in today just because it is itching her and keeping her up at night. No known exposures. No history of this. Of note, she is no longer on any of her diabetic meds. Evidently after her foot had surgery infection resolved her diabetes was under control with diet although it has not been checked recently. [facility] Medical History Cellulitis of left lower limb Chest pain Chronic headaches Chronic ulcer of left foot with necrosis of muscle Current use of insulin Depression Diabetic foot infection Diabetic nephropathy Difficulty chewing Difficulty swallowing DM (diabetes mellitus), type 2, uncontrolled DVT (deep venous thrombosis) Dyspnea High cholesterol History of stress test Irregular heartbeat Left foot infection Malnutrition Myocardial infarction Paralysis Peripheral vascular disease Post-menopausal Renal disease Restless legs Sleep apnea Status post amputation of toe of left foot Stroke Thyroiditis Type 2 diabetes mellitus with diabetic foot infection Ulcer Ulcer of left foot due to type 2 diabetes mellitus Home Medications Levemir FlexTouch U-100 Insuln 5 units SUBCUT DAILY 08/07/21 [History Last Taken Unknown] amlodipine 10 mg PO DAILY 08/07/21 [History Last Taken Unknown] aspirin 81 mg PO DAILY 08/07/21 [History Last Taken Unknown] levothyroxine 200 mcg PO DAILY@0600 08/07/21 [History Last Taken Unknown] metoprolol tartrate 25 mg PO BID 08/07/21 [History Last Taken Unknown] pantoprazole 40 mg PO DAILY 08/07/21 [History Last Taken Unknown] potassium chloride 10 meq PO DAILY 08/07/21 [History Last Taken Unknown] atorvastatin 80 mg PO QHS 08/12/21 [History Last Taken Unknown] clopidogrel 75 mg PO DAILY 08/12/21 [History Last Taken Unknown] polyethylene glycol 3350 17 g PO DAILY 08/12/21 [History Last Taken Unknown] meropenem 1 g IV Q12H 22 Days #44 ea 08/28/21 [Rx Last Taken Unknown] vancomycin in 0.9 % sodium chl 500 mg IV Q24H 22 Days #22 dose 08/28/21 [Rx Last Taken Unknown] acetaminophen 1,000 mg PO Q6H PRN PRN #0 tab 08/29/21 [Rx Last Taken Unknown] gnjsy-agfc-HoVWF-dvwilp-ya-oxs [Vlad (with collagen)] 1 packet PO BIDCM #0 ea 08/29/21 [Rx Last Taken Unknown] bisacodyl 10 mg PO DAILY PRN #0 tab 08/29/21 [Rx Last Taken Unknown] citalopram 10 mg PO DAILY #0 tab 08/29/21 [Rx Last Taken Unknown] heparin, porcine (PF) 50 units IV UD PRN #0 ml 08/29/21 [Rx Last Taken Unknown] menthol-zinc oxide [Calmoseptine] 1 applic TOPICAL BID #0 g 08/29/21 [Rx Last Taken Unknown] meropenem 1 g IV Q12 #0 ea 08/29/21 [Rx Last Taken Unknown] nystatin [Nyamyc] 1 applic TOPICAL BID #0 g 08/29/21 [Rx Last Taken Unknown] oxycodone 5 mg PO Q4H PRN PRN 3 Days #18 tab 08/29/21 [Rx Last Taken Unknown] sennosides-docusate sodium [Stool Softener-Stimulant Laxat] 1 tab PO BID #0 tab 08/29/21 [Rx Last Taken Unknown] sodium chloride 0.9 % (flush) [BD PosiFlush Normal Saline 0.9] 10 - 40 ml IV UD PRN #0 ml 08/29/21 [Rx Last Taken Unknown] sodium chloride 0.9 % (flush) [Normal Saline Flush] 10 - 40 ml IV UD PRN #0 ml 08/29/21 [Rx Last Taken Unknown] vancomycin in dextrose 5 % 500 mg IV Q24H #0 ml 08/29/21 [Rx Last Taken Unknown] metformin 500 mg PO BID #20 tab 01/07/22 [Rx Last Taken Unknown] prednisone 40 mg PO DAILY #30 tab 01/07/22 [Rx Last Taken Unknown] Allergy/AdvReac Type Severity Reaction Status Date / Time baclofen AdvReac Other Verified 01/07/22 11:24 Family History Other Diabetes Heart disease Surgical History History of heart artery stent S/P tubal ligation Status post arterial stent Status post coronary artery bypass graft Status post coronary artery stent placement Status post hysterectomy Status post transmetatarsal amputation of left foot Social History household members: children Smoking Status: Never smoker ROS ROS ED Constitutional Constitutional ED: Denies chills, fever(s) or subjective Eyes Eyes: Denies blurry vision Cardiovascular Cardiovascular: Denies chest pain Respiratory/Chest Respiratory/Chest: Denies cough or dyspnea Gastrointestinal Gastrointestinal: Denies abdominal pain, nausea or vomiting Genitourinary Genitourinary ED: Denies dysuria or hematuria Musculoskeletal Musculoskeletal: Denies arthralgias or myalgias Integumentary Reports rash and other Neurologic Neurologic: Denies headache(s) or weakness Endocrine Endocrinology: Denies polydipsia or polyuria Allergic/Immunologic Allergic/Immunologic ED: Denies urticaria EXAM Physical Exam Const Vital Signs: 01/07/22 11:15 01/07/22 12:14 Temperature 97.6 F L Temperature Source Temporal Pulse Rate 67 Respiratory Rate 18 Respiratory Effort Normal Non-Labored Respiratory Pattern Normal Blood Pressure 200/73 H Blood Pressure Mean 115 Pulse Ox 99 Oxygen Delivery Method Room Air Positive well nourished and well developed General Appearance ED: well developed and NAD HEENT Reports moist mucous membranes HEENT Narrative: I do not see any intraoral lesions on this patient. There seems to be no involvement of her oral mucosa. Eyes General Eye ED: Negative for pale conjunctiva or scleral icterus Neck no JVD Resp normal respiratory effort Cardio regular rate and regular rhythm GI normal to inspection, nondistended, normoactive bowel sounds Palpation: soft Extremity Extremity Narrative: Dressings on left lower extremity. These are clean and dry. Neuro oriented x3 Sensorium / Orientation: alert Psych mental status grossly normal Skin Skin Narrative: Patient has lesions in various stages of development mostly on her upper torso shoulder area. Down a couple on the right lower chest and 2 on the right lower abdomen. These are the knot on the back or in the skin folds. They are not on lower extremities. She ranges anywhere from bullae that are about 10 to 15 mm around. There are some that are slightly hemorrhagic bullae. There are some that are opened and then dried out and in various stages of healing. They do have Asboe-Floyd sign. MDM MDM MDM Narrative Medical decision making narrative: Blood sugar was checked and she used to be diabetic when ill but has been off meds. My suspicion is she will need meds going on steroids. We checked her sugar is 168. We will start Metformin along with steroids. These lesions are most consistent with pemphigus vulgaris. However they have been going on almost 6 months. No sign of infection. I think she is okay for discharge and follow-up with her dermatology appointment that is in 2 weeks. Lab Data Attestation: I reviewed the patient's lab results. Labs: Laboratory Results - last 24 hr 01/07/22 12:30 POC Glucose 168 H Discharge Plan Triage Chief Complaint: General Illness ED Provider: Theron David Dx/Rx/DC Orders Clinical Impression: Pemphigus vulgaris Instructions: Self-Care for Skin Rashes Prescriptions: New prednisone 20 MG tablet 40 mg PO DAILY Qty: 30 RF: 0 metformin 500 mg tablet 500 mg PO BID Qty: 20 RF: 0 No Action potassium chloride 10 mEq Capsule, Extended Release 10 meq PO DAILY RF: 0 amlodipine 10 mg Tablet 10 mg PO DAILY RF: 0 metoprolol tartrate 25 mg Tablet 25 mg PO BID RF: 0 aspirin 81 mg Capsule 81 mg PO DAILY RF: 0 pantoprazole 20 MG tablet,delayed release (DR/EC) 40 mg PO DAILY RF: 0 levothyroxine 150 MCG tablet 200 mcg PO DAILY@0600 RF: 0 Levemir FlexTouch U-100 Insuln 100 UNITS/ML insulin pen 5 units subcut DAILY RF: 0 atorvastatin 80 MG tablet 80 mg PO QHS RF: 0 polyethylene glycol 3350 17 GM powder in packet 17 g PO DAILY RF: 0 clopidogrel 75 MG tablet 75 mg PO DAILY RF: 0 vancomycin in 0.9 % sodium chl 500 mg/100 mL piggyback 500 mg IV Q24H 22 Days Qty: 22 RF: 0 meropenem 1 gram recon soln 1 g IV Q12H 22 Days Qty: 44 RF: 0 citalopram 10 mg Tablet 10 mg PO DAILY Qty: 0 RF: 0 sennosides-docusate sodium [Stool Softener-Stimulant Laxat] 8.6-50 mg Tablet 1 tab PO BID Qty: 0 RF: 0 acetaminophen 500 mg Tablet 1,000 mg PO Q6H PRN PRN (Reason: Pain Score 1-10) Qty: 0 RF: 0 meropenem 1 gram Recon Soln 1 g IV Q12 Qty: 0 RF: 0 bisacodyl 5 mg Tablet,Delayed Release (Dr/Ec) 10 mg PO DAILY PRN (Reason: Constipation) Qty: 0 RF: 0 nystatin [Nyamyc] 100,000 unit/gram Powder 1 applic topical BID Qty: 0 RF: 0 vancomycin in dextrose 5 % 500 mg/100 mL Piggyback 500 mg IV Q24H Qty: 0 RF: 0 oxycodone 5 mg Tablet 5 mg PO Q4H PRN PRN (Reason: Pain Score 6-10) 3 Days Qty: 18 RF: 0 sodium chloride 0.9 % (flush) [BD PosiFlush Normal Saline 0.9] Syringe 10 - 40 ml IV UD PRN (Reason: Open End PICC Flush) Qty: 0 RF: 0 sodium chloride 0.9 % (flush) [Normal Saline Flush] Syringe 10 - 40 ml IV UD PRN (Reason: Port access or dressing change) Qty: 0 RF: 0 heparin, porcine (PF) 10 unit/mL Syringe 50 units IV UD PRN (Reason: PICC Line Heparin Flush) Qty: 0 RF: 0 menthol-zinc oxide [Calmoseptine] 0.44-20.6 % Ointment 1 applic topical BID Qty: 0 RF: 0 Vlad (with collagen) 7-7-1.5 gram Powder In Packet 1 packet PO BIDCM Qty: 0 RF: 0 Primary Care Provider: Elia Ceja Chi Referrals: Elia Ceja Chi, MD [Primary Care Provider] - 3-5 Days if not improving Activity Restrictions/Additional Instructions: Please do up with your dermatology appointment as scheduled. Disposition Disposition: Home, Self Care
[2022-01-07 12:35] LABS: Bedside Glucose 168 mg/dL (74-106)
[2022-01-07] MEDS: predniSONE 20 MG Tablet 60 MG PO (12:51)
[2022-01-07 12:54] VITALS: BP 183/71; PULSE 55
== END 2022-01-07 12:55 | disposition home or self-care (01) ==
PROVIDERS: Emergency Provider Emergency Medicine; PCP Family Medicine Geriatric Medicine; Visit Provider Emergency Medicine
DX: L10.0 Pemphigus vulgaris (principal); L97.922 Non-pressure chronic ulcer of unspecified part of left lower leg with fat layer exposed; E44.0 Moderate protein-calorie malnutrition; E11.42 Type 2 diabetes mellitus with diabetic polyneuropathy; I73.9 Peripheral vascular disease, unspecified; E78.00 Pure hypercholesterolemia, unspecified; Z86.73 Personal history of transient ischemic attack (TIA), and cerebral infarction without residual deficits; T14.8XXA Other injury of unspecified body region, initial encounter; R60.0 Localized edema; S90.822A Blister (nonthermal), left foot, initial encounter
CPT/HCPCS: 11042; 11045; 82962; 99283

== ENCOUNTER 2022-01-28 14:15 | Outpatient (RCR) | payer MEDICARE, MEDICAID, SELFPAY ==
[2022-01-06 00:32] VITALS: BP 171/77; PULSE 54; RESP 16; TEMP 36.3; BMI 36.6
[2022-01-07 13:14] VITALS: BP 183/71; PULSE 54; RESP 16; BMI 36.6
--- NOTE | 2022-01-07 14:49 | PN.PCM_ITS ---
History of Present Illness Date of Service: 01/07/22 Chief Complaint: Left lower extremity ulcers History of Wound: This 71-year-old female following up for left transmetatarsal amputation for treatment of gangrene and osteomyelitis of limb threatening infection that was performed at [facility] on 08-08-21. She is also following up for anterior left ankle and posterior lateral left leg ulcers. She is now home with family. She also recently had vascular surgery intervention and continues on Plavix. She is taking nutritional supplementation. She is with her daughter today. She was also seen by her primary care physician and emergency room recently for her new dermatitis condition and wounds to her chest. She is referred to dermatology. Her daughter reports a new blister to the left foot, a new wound to the right small toe, and increased left leg ulcer size. She denies recent exacerbation and limb swelling or new injuries. The onset of the right foot ulcer was 2 days ago. Progress of Wound: Healed anterior left lower leg ulcer Worse status left leg ulcer Blister left foot New ulcer right fifth toe Objective Data Objective Data Vital Signs: Vital Signs Temp Pulse Resp BP 97.4 F L 54 L 16 183/71 H 01/06/22 00:32 01/07/22 13:14 01/07/22 13:14 01/07/22 13:14 Oxygen Delivery Method Room Air Weight: 90.904 kg Body Mass Index (BMI) 36.6 Physical Exam Extremity Extremity Narrative: Left foot Transmetatarsal amputation. There is healed anterior ankle /lower leg ulcer site with full epithelialization. The skin is very friable and thin at this site with hypopigmentation. the lateral left leg ulcer down to subcutaneous tissue with no evidence of infection to these ulcer sites, margins viable, no malodor. This is increaesd in size. There is no longer any eschar, hypergranular, or deep tissue exposure. There is no crepitus, no visible abscess noted to the left foot, ankle or leg. Blister to central lateral transmetatarsal amputation stump site without deep tissue exposure or infection. Serosanguineous drainage noted upon puncture. Right foot new skin discontinuity to dorsal lateral periungual fifth toe without deep tissue exposure or infection. This is a granular healthy base Decreased sensation to the left foot c/w chronic peripheral neuropathy, no evidence of acute ischemia to the bilateral foot or ankle, no evidence of charcot neuroarthropathy or compartment syndrome either. Reduced palpable pulse left. Lower extremity edema mild Debridement Note Debridement Note Wound debrided: right 5th toe. Left lateral leg Wound Grade/Stage: 1,1 Type of Debridement: Excisional debridement Anesthesia Used: 4% Lidocaine Solution Depth: in the subcutaneous layer Percentage of wound debrided: 100 Instrument Used: #15 blade Tissue Removed: fibrous, devitalized subcutaneous, biofilm, slough Severity: Fat Layer Exposed Amount of bleeding with debridement: Mild Bleeding Controlled with: Pressure Patient tolerated procedure: Patient tolerated procedure well Post-Debridement Measurements and Additional Note: Post-Debridement Measurements/Treatment - Nurse 1 - General Ulcer Assessment Start: 01/07/22 13:14 Freq: Status: Active Protocol: MARILIA Activity Type Activity Date Activity User E-Sign Co-Sign Detail Recorded Client Recorded Date Recorded By Document 01/07/22 13:14 BMF [id number] 01/07/22 13:27 BMF Edit Result 01/07/22 13:14 BMF (1) [id number] 01/07/22 13:28 BMF (1) Comment => COUNSELED PT R/T => BP; 01/07/22 13:14 - Today's Visit Information Type of service 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 ) Arrival Mode Wheelchair Transfer Assistance None Accompanied by DAUGHTER Patient Identification Verified (Name & Yes ) Patient Requires Transmission-Based No Precautions Height and Weight Body Mass Index (BMI) 36.6 BMI Classification Obese Vital Signs Pulse Rate (60-100) 54 L Pulse Location Monitor Respiratory Rate (12-18) 16 Respiratory rate source Observation Oxygen Delivery Method Room Air Blood Pressure (90/60-120/80) 183/71 H Blood Pressure Mean (mm Hg) 108 Source Monitor Position Sitting Blood Pressure Location Right Forearm Comment COUNSELED PT R/ T BP; History Since Last Visit- (Skip if this is Patient's initial visit) Have you changed medications since your Yes last visit? Any new allergies or adverse reactions No Had a fall/change in ADL's that may No increase risk of falls Signs or symptoms of abuse and/or No neglect since last visit Have you been in the hospital since your No last visit? Has dressing in place as prescribed Yes Has compression in place as prescribed Yes Has offloadiing in place as prescribed Yes Experienced any changes in pain level or No management Left Footwear Other Footwear (Comment) Other Footwear ALEJANDRO TO LLE Pain Scale: 0-10 Numeric Is Patient Pain Free? Yes - Nurse 1 - General Ulcer Measurement Start: 01/07/22 13:14 Freq: Status: Active Protocol: Activity Type Activity Date Activity User E-Sign Co-Sign Detail Recorded Client Recorded Date Recorded By Document 01/07/22 13:14 [facility] [id number] 01/07/22 13:27 [facility] 01/07/22 13:14 Wound Center Nurse 1 3. L lateral LE -Combined with other wound No -Current Size (cm) - Length 14.6 -Current Size (cm) - Width 1.9 -Current Size (cm) - Depth 0.1 -Total Square Cm 27.74 -Photo Taken No -Epithelialization Small 1-33% -Tunneling No -Undermining/Tunneling No -Circular Undermining No -Exudate Amt Large -Exudate Type Sanguineous -Wound Margin Distinct, Outline Attached -Granulation Amt Large (67-100%) -Granulation Quality Red -Slough/Fibrin Yes -Necrosis Amt Small (1-33%) -Necrotic Tissue Type Adherent Slough -Texture (Frances-wound Skin Appearance) Assessed, Scarring -Moisture (Frances-wound Skin Appearance) Assessed,Dry/ Scaly -Color (Frances-wound Skin Appearance) Assessed -Temperature (Frances-wound Skin No Abnormality Appearance) (Pt Warm) -Tenderness on Palpation (Frances-wound Yes Skin Appearance) -Ulcer Cleansing Soap and Water -Foul Odor after Cleansing No -Anesthetic Used 4% Lidocaine Solution 2. L dorsal foot -Current Size (cm) - Length 0.1 -Current Size (cm) - Width 0.1 -Current Size (cm) - Depth 0.1 -Total Square Cm 0.01 -Photo Taken No -Tunneling No -Undermining/Tunneling No -Circular Undermining No -Exudate Amt Small -Exudate Type Serous -Wound Margin Distinct, Outline Attached -Granulation Amt None Present (0 %) -Slough/Fibrin Yes -Necrosis Amt Large (67-100%) -Necrotic Tissue Type Adherent Slough -Texture (Frances-wound Skin Appearance) Assessed, Scarring -Moisture (Frances-wound Skin Appearance) Assessed,Dry/ Scaly -Color (Frances-wound Skin Appearance) Assessed -Temperature (Frances-wound Skin No Abnormality Appearance) (Pt Warm) -Tenderness on Palpation (Frances-wound Yes Skin Appearance) -Ulcer Cleansing Soap and Water -Foul Odor after Cleansing No -Anesthetic Used 5% Lidocaine Gel WC - Nurse 2 - General Ulcer CM Notes Start: 01/07/22 13:14 Freq: Status: Active Protocol: Activity Type Activity Date Activity User E-Sign Co-Sign Detail Recorded Client Recorded Date Recorded By Document 01/07/22 13:40 [id number] 01/07/22 13:49 ALFREDO 01/07/22 13:40 Wound Center Nurse 2 4-right 5th toe -Time 13:48 -Correct Patient Yes -Correct Side, Site, Position Yes -Correct Procedure Yes -Procedure Performed Yes -Type of Procedure Debridement -Clinical Debridement Subcutaneous -Tissue Removed Subcutaneous -Post Debridement (cm) - Length 0.5 -Post Debridement (cm) - Width 0.4 -Post Debridement (cm) - Depth 0.1 -Total Square (Post) (cm) 0.20 -Area of Debridement (cm) - Length 0.5 -Area of Debridement (cm) - Width 0.4 -Total Square (Area) (cm) 0.20 -Tunneling No -Undermining/Tunneling No -Circular Undermining No -Wound/Ulcer Outcome Not Healed -Ulcer Cleansing Rinsed/ Irrigated with Saline -Foul Odor after Cleansing No -Bioengineered Tissue No -Offloading No -Treatment Response Procedure Tolerated Well -Debridement - Subq, 1st 20sq cm No 3. L lateral LE -Time 13:41 -Correct Patient Yes -Correct Side, Site, Position Yes -Correct Procedure Yes -Procedure Performed Yes -Type of Procedure Debridement -Clinical Debridement Subcutaneous -Tissue Removed Subcutaneous -Post Debridement (cm) - Length 14.6 -Post Debridement (cm) - Width 2 -Post Debridement (cm) - Depth 0.1 -Total Square (Post) (cm) 29.2 -Area of Debridement (cm) - Length 14.6 -Area of Debridement (cm) - Width 2 -Total Square (Area) (cm) 29.2 -Tunneling No -Undermining/Tunneling No -Circular Undermining No -Wound/Ulcer Outcome Not Healed -Ulcer Cleansing Rinsed/ Irrigated with Saline -Foul Odor after Cleansing No -Bioengineered Tissue No -Bleeding Controlled with Pressure -Offloading No -Treatment Response Procedure Tolerated Well -Debridement - Subq, 1st 20sq cm Yes -Debridement, SubQ, ea addt'l 20sq cm 1 or part thereof 2. L dorsal foot -Correct Patient No -Correct Side, Site, Position No -Correct Procedure No -Procedure Performed No -Post Debridement (cm) - Length 0 -Post Debridement (cm) - Width 0 -Post Debridement (cm) - Depth 0 -Total Square (Post) (cm) 0 -Area of Debridement (cm) - Length 0 -Area of Debridement (cm) - Width 0 -Total Square (Area) (cm) 0 -Wound/Ulcer Outcome Healed- Epithelialized Pain Scale: 0-10 Numeric Is Patient Pain Free? 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: CODE(S): L97.922 - Non-pressure chronic ulcer of unspecified part of left lower leg with fat layer exposed (5) Type 2 diabetes mellitus with diabetic polyneuropathy: CODE(S): E11.42 - Type 2 diabetes mellitus with diabetic polyneuropathy QUALIFIERS: Diabetes mellitus care home insulin use: with care home use Qualified Code(s): E11.42 - Type 2 diabetes mellitus with diabetic polyneuropathy; Z79.4 - buttermaker continuous churn (current) use of insulin (6) Malnutrition: CODE(S): E46 - Unspecified protein-calorie malnutrition QUALIFIERS: Malnutrition type: protein-calorie malnutrition Protein-calorie malnutrition severity: moderate Qualified Code(s): E44.0 - Moderate protein-calorie malnutrition (7) Blister (nonthermal), left foot, initial encounter: CODE(S): S90.822A - Blister (nonthermal), left foot, initial encounter PLAN: I reviewed and discussed her case today. Debridement was performed today as noted in the clinical panel to all of the ulcer sites. It is noted that the anterior distal left leg ulcer site is healed. To cover with a dry gauze to light skin remodeling. The new blister to the left stump is also noted and this was carefully drained with a 15 blade scalpel. I also recommend covering this simply with a dry gauze as well. New right foot ulcer is also noted. The following work up and care recommendations were made: Dressing: Change left leg ulcer daily with Adaptic and Aquacel Ag. To apply Aquacel Ag to the right foot ulcer. Wash: Antibacterial soap and water Tissue growth optimization: Additional application of advanced wound healing product will be considered at follow-up visits to the lateral left leg. Prior authorization will be needed. This is medically necessary and she has high risk status. The indication, benefits and anticipated application management were reviewed. Offload: Continue offloading pillow to take pressure off of the side of her leg.she has a donut pillow and I recommend the use of a proximal distal donut pillow to offload her central line. Ok to place partial weight to plantar left foot at this time. To avoid excessive ambulation which she is not doing anyways at this time. To avoid direct pressure to the right fifth toe also. Is noted she is wearing soft slippers and this appears to be appropriate. Vascular: She is under the care of Dr. Aguilar, vascular surgeon. On 08-20-21 she had catheterization in place to the anterior tibial artery and a balloon angioplasty performed in the popliteal into the proximal anterior tib. To follow-up as scheduled. Additional intervention is not planned at this time and she reports she followed with Dr. Aguilar this morning who wrote recommended mo nitoring her staged improvement. To continue on Plavix. Edema: Alejandro wrap applied Infection: This has resolved and her surgical site has also healed. She was previously under the care of infectious disease specialist. Wound cx and surg cx with MRSA, raoultella, citrobacter. Clearance cx with some MRSA and anaerobes. Superficial raoultella was R to cefepime, but surg cx was S and clearance cx was neg for GNR. She was on vanc/meropenem with stop date 09/19/21. There is resolution of local and systemic signs of illness at this time Pain: This is not present because of her neuropathy. Surgically, she had a transmetatarsal amputation and debridement of the ulcers on 08-08-21 at [facility]. Host factors: She is diabetic and her hemoglobin A1c was recently improved to 6.9% (9-30-21). To continue to work with primary care physician on medical management. I recommend nutritional supplementation optimize healing. She is on Vlad and Glucerna. I answered all the patient's questions. To return to the wound healing center in 1 week or call sooner if the patient has any questions or concerns. Her recent primary care visit encounter is noted and she will follow-up with dermatology.
[2022-01-14 08:12] VITALS: BP 188/71; PULSE 60; RESP 18; TEMP 36.5; BMI 36.6
--- NOTE | 2022-01-14 10:31 | PN.PCM_ITS ---
History of Present Illness Date of Service: 01/14/22 Chief Complaint: Left lower extremity ulcers History of Wound: This 71-year-old female following up for left transmetatarsal amputation for treatment of gangrene and osteomyelitis of limb threatening infection that was performed at [facility] on 08-08-21. She is also following up for anterior left ankle and posterior lateral left leg ulcers. She is now home with family. She also recently had vascular surgery intervention and continues on Plavix. She is taking nutritional supplementation. She is with her grand daughter today. She reports less drainage. The granddaughter has been trying to help her better offload her left leg ulcer site. Progress of Wound: Healed anterior left lower leg ulcer Improving status left leg ulcer Blister left foot stable and no ulcer noted at the site Improving ulcer right fifth toe Objective Data Objective Data Vital Signs: Vital Signs Temp Pulse Resp BP 97.7 F L 60 18 188/71 H 01/14/22 08:12 01/14/22 08:12 01/14/22 08:12 01/14/22 08:12 Oxygen Delivery Method Room Air Weight: 90.904 kg Body Mass Index (BMI) 36.6 Physical Exam Extremity Extremity Narrative: Left foot Transmetatarsal amputation. There is healed anterior ankle /lower leg ulcer site with full epithelialization. The skin is very friable and thin at this site with hypopigmentation. the lateral left leg ulcer granular base noted. There is no longer any eschar, hypergranular, or deep tissue exposure. There is no crepitus, no visible abscess noted to the left foot, ankle or leg. Blister to central lateral transmetatarsal amputation stump site without deep tissue exposure or infection. no drainage and skin is adhered without ulcer; no drainage Right foot new skin discontinuity to dorsal lateral periungual fifth toe without deep tissue exposure or infection. This is a granular healthy base. decreased size noted Decreased sensation to the left foot c/w chronic peripheral neuropathy, no evidence of acute ischemia to the bilateral foot or ankle, no evidence of charcot neuroarthropathy or compartment syndrome either. Reduced palpable pulse left. Lower extremity edema mild Debridement Note Debridement Note Wound debrided: dorsal lateral fifth right toe, lateral left leg Wound Grade/Stage: 1,1 Type of Debridement: Excisional debridement Anesthesia Used: 4% Lidocaine Solution Depth: in the subcutaneous layer Percentage of wound debrided: 100 Instrument Used: #15 blade Tissue Removed: fibrous, devitalized subcutaneous, biofilm, slough Severity: Fat Layer Exposed Amount of bleeding with debridement: Mild Bleeding Controlled with: Pressure Patient tolerated procedure: Patient tolerated procedure well Post-Debridement Measurements and Additional Note: Post-Debridement Measurements/Treatment - Nurse 1 - General Ulcer Assessment Start: 01/07/22 13:14 Freq: Status: Active Protocol: .LOWEXT Activity Type Activity Date Activity User E-Sign Co-Sign Detail Recorded Client Recorded Date Recorded By Document 01/07/22 13:14 BMF [id number] 01/07/22 13:27 BMF Edit Result 01/07/22 13:14 BMF (1) [id number] 01/07/22 13:28 BMF Document 01/14/22 08:12 RB [id number] 01/14/22 08:25 RB (1) Comment => COUNSELED PT R/T => BP; 01/07/22 01/14/22 13:14 08:12 - Today's Visit Information Type of service Follow-up Visit Follow-up Visit (Physician/CLINICAL STAFF ANESTHESIOLOGIST (Physician/CLINICAL STAFF ANESTHESIOLOGIST ) ) Arrival Mode Wheelchair Wheelchair Transfer Assistance None Manual Accompanied by DAUGHTER Patient Identification Verified (Name & Yes Yes ) Patient Requires Transmission-Based No No Precautions Height and Weight Body Mass Index (BMI) 36.6 36.6 BMI Classification Obese Obese Temperature (97.8 F-99.1 F) 97.7 F L Temperature Source Temporal Vital Signs Pulse Rate (60-100) 54 L 60 Pulse Location Monitor Monitor Respiratory Rate (12-18) 16 18 Respiratory rate source Observation Observation Oxygen Delivery Method Room Air Blood Pressure (90/60-120/80) 183/71 H 188/71 H Blood Pressure Mean (mm Hg) 108 110 Source Monitor Monitor Position Sitting Blood Pressure Location Right Forearm Left Arm Comment COUNSELED PT R/ T BP; History Since Last Visit- (Skip if this is Patient's initial visit) Have you changed medications since your Yes No last visit? Any new allergies or adverse reactions No No Had a fall/change in ADL's that may No No increase risk of falls Signs or symptoms of abuse and/or No No neglect since last visit Have you been in the hospital since your No No last visit? Has dressing in place as prescribed Yes Yes Has compression in place as prescribed Yes Yes Has offloadiing in place as prescribed Yes No Experienced any changes in pain level or No No management Left Footwear Other Footwear (Comment) Other Footwear ALEJANDRO TO LLE Pain Scale: 0-10 Numeric Is Patient Pain Free? Yes Yes WC - Nurse 1 - General Ulcer Measurement Start: 01/07/22 13:14 Freq: Status: Active Protocol: Activity Type Activity Date Activity User E-Sign Co-Sign Detail Recorded Client Recorded Date Recorded By Document 01/07/22 13:14 [facility] [id number] 01/07/22 13:27 BMF Document 01/14/22 08:12 RB [id number] 01/14/22 08:25 RB 01/07/22 01/14/22 13:14 08:12 Wound Center Nurse 1 4-right 5th toe -Combined with other wound No -Current Size (cm) - Length 0.1 -Current Size (cm) - Width 0.1 -Current Size (cm) - Depth 0.1 -Total Square Cm 0.01 -Tunneling No -Undermining/Tunneling No -Circular Undermining No -Exudate Amt Medium -Exudate Type Serosanguineous -Wound Margin Distinct, Outline Attached -Granulation Amt Medium (34-66%) -Granulation Quality Red -Slough/Fibrin Yes -Necrosis Amt Small (1-33%) -Necrotic Tissue Type Adherent Slough -Structure Exposed N/A -Texture (Frances-wound Skin Appearance) Assessed -Moisture (Frances-wound Skin Appearance) Assessed -Color (Frances-wound Skin Appearance) Assessed -Temperature (Frances-wound Skin No Abnormality Appearance) (Pt Warm) -Tenderness on Palpation (Frances-wound No Skin Appearance) -Ulcer Cleansing Wound Cleanser -Foul Odor after Cleansing No -Anesthetic Used 5% Lidocaine Gel 3. L lateral LE -Combined with other wound No No -Current Size (cm) - Length 14.6 15 -Current Size (cm) - Width 1.9 1.5 -Current Size (cm) - Depth 0.1 0.1 -Total Square Cm 27.74 22.5 -Photo Taken No -Epithelialization Small 1-33% -Tunneling No No -Undermining/Tunneling No No -Circular Undermining No No -Exudate Amt Large Large -Exudate Type Sanguineous Serosanguineous -Wound Margin Distinct, Distinct, Outline Outline Attached Attached -Granulation Amt Large (67-100%) Medium (34-66%) -Granulation Quality Red Red -Slough/Fibrin Yes Yes -Necrosis Amt Small (1-33%) Small (1-33%) -Necrotic Tissue Type Adherent Slough Adherent Slough -Structure Exposed N/A -Texture (Frances-wound Skin Appearance) Assessed, Scarring Scarring -Moisture (Frances-wound Skin Appearance) Assessed,Dry/ Assessed Scaly -Color (Frances-wound Skin Appearance) Assessed Assessed -Temperature (Frances-wound Skin No Abnormality No Abnormality Appearance) (Pt Warm) (Pt Warm) -Tenderness on Palpation (Frances-wound Yes No Skin Appearance) -Ulcer Cleansing Soap and Water Wound Cleanser -Foul Odor after Cleansing No No -Anesthetic Used 4% Lidocaine 5% Lidocaine Solution Gel 2. L dorsal foot -Current Size (cm) - Length 0.1 -Current Size (cm) - Width 0.1 -Current Size (cm) - Depth 0.1 -Total Square Cm 0.01 -Photo Taken No -Tunneling No -Undermining/Tunneling No -Circular Undermining No -Exudate Amt Small -Exudate Type Serous -Wound Margin Distinct, Outline Attached -Granulation Amt None Present (0 %) -Slough/Fibrin Yes -Necrosis Amt Large (67-100%) -Necrotic Tissue Type Adherent Slough -Texture (Frances-wound Skin Appearance) Assessed, Scarring -Moisture (Frances-wound Skin Appearance) Assessed,Dry/ Scaly -Color (Frances-wound Skin Appearance) Assessed -Temperature (Frances-wound Skin No Abnormality Appearance) (Pt Warm) -Tenderness on Palpation (Frances-wound Yes Skin Appearance) -Ulcer Cleansing Soap and Water -Foul Odor after Cleansing No -Anesthetic Used 5% Lidocaine Gel WC - Nurse 2 - General Ulcer CM Notes Start: 01/07/22 13:14 Freq: Status: Active Protocol: Activity Type Activity Date Activity User E-Sign Co-Sign Detail Recorded Client Recorded Date Recorded By Document 01/07/22 13:40 ALFREDO [id number] 01/07/22 13:49 Document 01/14/22 08:50 ALFREDO [id number] 01/14/22 08:54 JF 01/07/22 01/14/22 13:40 08:50 Wound Center Nurse 2 4-right 5th toe -Time 13:48 08:52 -Correct Patient Yes Yes -Correct Side, Site, Position Yes Yes -Correct Procedure Yes Yes -Procedure Performed Yes Yes -Type of Procedure Debridement Debridement -Clinical Debridement Subcutaneous Subcutaneous -Tissue Removed Subcutaneous Subcutaneous -Post Debridement (cm) - Length 0.5 0.2 -Post Debridement (cm) - Width 0.4 0.3 -Post Debridement (cm) - Depth 0.1 0.1 -Total Square (Post) (cm) 0.20 0.06 -Area of Debridement (cm) - Length 0.5 0.2 -Area of Debridement (cm) - Width 0.4 0.3 -Total Square (Area) (cm) 0.20 0.06 -Tunneling No No -Undermining/Tunneling No No -Circular Undermining No No -Wound/Ulcer Outcome Not Healed Not Healed -Ulcer Cleansing Rinsed/ Rinsed/ Irrigated with Irrigated with Saline Saline -Foul Odor after Cleansing No No -Bioengineered Tissue No No -Offloading No No -Treatment Response Procedure Procedure Tolerated Well Tolerated Well -Debridement - Subq, 1st 20sq cm No Yes 3. L lateral LE -Time 13:41 08:52 -Correct Patient Yes Yes -Correct Side, Site, Position Yes Yes -Correct Procedure Yes Yes -Procedure Performed Yes Yes -Type of Procedure Debridement Debridement -Clinical Debridement Subcutaneous Subcutaneous -Tissue Removed Subcutaneous Subcutaneous -Post Debridement (cm) - Length 14.6 15.1 -Post Debridement (cm) - Width 2 1.6 -Post Debridement (cm) - Depth 0.1 0.1 -Total Square (Post) (cm) 29.2 24.16 -Area of Debridement (cm) - Length 14.6 15.1 -Area of Debridement (cm) - Width 2 1.6 -Total Square (Area) (cm) 29.2 24.16 -Tunneling No No -Undermining/Tunneling No No -Circular Undermining No No -Wound/Ulcer Outcome Not Healed Not Healed -Ulcer Cleansing Rinsed/ Rinsed/ Irrigated with Irrigated with Saline Saline -Foul Odor after Cleansing No No -Bioengineered Tissue No Yes -Type of Bioengineered Tissue Epifix Mesh -Expiration Date 10/08/26 -Product Lot Number [id number] -Percent Used 100 -Lot number of Saline Used [id number] -Bleeding Controlled with Pressure Pressure -Offloading No No -Treatment Response Procedure Procedure Tolerated Well Tolerated Well -Debridement - Subq, 1st 20sq cm Yes No -Debridement, SubQ, ea addt'l 20sq cm 1 or part thereof -Apply Skin Sub - 1st 25 sq cm - Legs 1 -Apply Skin Sub - each addt'l 25 sq cm 1 - Legs -Epifix Mesh (per sq cm) 11 2. L dorsal foot -Correct Patient No -Correct Side, Site, Position No -Correct Procedure No -Procedure Performed No -Post Debridement (cm) - Length 0 -Post Debridement (cm) - Width 0 -Post Debridement (cm) - Depth 0 -Total Square (Post) (cm) 0 -Area of Debridement (cm) - Length 0 -Area of Debridement (cm) - Width 0 -Total Square (Area) (cm) 0 -Wound/Ulcer Outcome Healed- Epithelialized Pain Scale: 0-10 Numeric Is Patient Pain Free? Yes Yes - Nurse 3 - General Ulcer D/C NN Start: 01/07/22 13:14 Freq: Status: Active Protocol: Activity Type Activity Date Activity User E-Sign Co-Sign Detail Recorded Client Recorded Date Recorded By Document 01/14/22 09:12 JEANCARLOS [id number] 01/14/22 09:13 JEANCARLOS 01/14/22 09:12 Wound Care Nurse 3 4-right 5th toe -Ulcer Cleansing Rinsed/ Irrigated with Saline -Primary Dressing Applied Aquacel AG 4x4 -Primary Dressing Covered/Secured with Dry Gauze, Secured with Tape -Aquacel AG 4x4 1 3. L lateral LE -Other Dressing alejandro LLE -Primary Dressing Covered/Secured with Dry Gauze,Dry Gauze & Roll Gauze,Secured with Tape Pain Scale: 0-10 Numeric Is Patient Pain Free? 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: CODE(S): L97.922 - Non-pressure chronic ulcer of unspecified part of left lower leg with fat layer exposed (5) Type 2 diabetes mellitus with diabetic polyneuropathy: CODE(S): E11.42 - Type 2 diabetes mellitus with diabetic polyneuropathy QUALIFIERS: Diabetes mellitus shelter insulin use: with shelter use Qualified Code(s): E11.42 - Type 2 diabetes mellitus with diabetic polyneuropathy; Z79.4 - long-term (current) use of insulin (6) Malnutrition: CODE(S): E46 - Unspecified protein-calorie malnutrition QUALIFIERS: Malnutrition type: protein-calorie malnutrition Protein-calorie malnutrition severity: moderate Qualified Code(s): E44.0 - Moderate protein-calorie malnutrition (7) Blister (nonthermal), left foot, initial encounter: CODE(S): S90.822A - Blister (nonthermal), left foot, initial encounter (8) Chronic ulcer of right foot with fat layer exposed: CODE(S): L97.512 - Non-pressure chronic ulcer of other part of right foot with fat layer exposed PLAN: I reviewed and discussed her case today. Debridement was performed today as noted in the clinical panel to all of the ulcer sites. It is noted that the anterior distal left leg ulcer site is healed. To cover with a dry gauze to light skin remodeling. The new blister to the left stump appears to be healed and is not a wound at this time (no dressing required). The following work up and care recommendations were made: Dressing: To apply Aquacel Ag to the right foot ulcer. Epi fix, advancing healing product was applied to the lateral left leg ulcer site and was secured with a wound veil and Steri-Strips after verbal consent was obtained. This was applied according standard protocol. Topical local anesthetic was utilized for pain control prior to this debridement. She tolerated this well. A dry dressing was applied with gauze and she is advised to keep a secondary dressing clean, dry, and intact until follow-up visit. It is noted this is a different site to the previously applied epifix product. This is medically necessary. Wash: Antibacterial soap and water Offload: Continue offloading pillow to take pressure off of the side of her leg.she has a donut pillow and I recommend the use of a proximal distal donut pillow to offload her central line. Ok to place partial weight to plantar left foot at this time. To avoid excessive ambulation which she is not doing anyways at this time. To avoid direct pressure to the right fifth toe also. Is noted she is wearing soft slippers and this appears to be appropriate. Vascular: She is under the care of Dr. Aguilar, vascular surgeon. On 08-20-21 she had catheterization in place to the anterior tibial artery and a balloon angioplasty performed in the popliteal into the proximal anterior tib. To follow-up as scheduled. Additional intervention is not planned at this time and she reports she followed with Dr. Aguilar this morning who wrote recommended monitoring her staged improvement. To continue on Plavix. Edema: Alejandro wrap applied Infection: This has resolved and her surgical site has also healed. She was previously under the care of infectious disease specialist. Wound cx and surg cx with MRSA, raoultella, citrobacter. Clearance cx with some MRSA and anaerobes. Superficial raoultella was R to cefepime, but surg cx was S and clearance cx was neg for GNR. She was on vanc/meropenem with stop date 09/19/21. There is resolution of local and systemic signs of illness at this time Pain: This is not present because of her neuropathy. Surgically, she had a transmetatarsal amputation and debridement of the ulcers on 08-08-21 at [facility]. Host factors: She is diabetic and her hemoglobin A1c was recently improved to 6.9% (08-07-21). To continue to work with primary care physician on medical management. I recommend nutritional supplementation optimize healing. She is on Vlad and Glucerna. I answered all the patient's questions. To return to the wound healing center in 1 week or call sooner if the patient has any questions or concerns.
[2022-01-21 14:09] VITALS: BP 145/91; PULSE 106; RESP 20; TEMP 36.7; BMI 36.6
--- NOTE | 2022-01-21 14:46 | PN.PCM_ITS ---
History of Present Illness Date of Service: 01/21/22 Chief Complaint: Left lower extremity ulcers History of Wound: This 71-year-old female following up for left transmetatarsal amputation for treatment of gangrene and osteomyelitis of limb threatening infection that was performed at [facility] on 08-08-21. She is also following up for anterior left ankle (healed) and posterior lateral left leg ulcers. She also follows up for recent right fifth toe ulcer. She is now home with family. She also recently had vascular surgery intervention and continues on Plavix. She is taking nutritional supplementation. She is with her grand daughter today. She reports less drainage. The granddaughter has been trying to help her better offload her left leg ulcer site. Progress of Wound: stable status left leg ulcer Healed ulcer right fifth toe Objective Data Objective Data Vital Signs: Vital Signs Temp Pulse Resp BP 98.1 F 106 H 20 H 145/91 H 01/21/22 14:09 01/21/22 14:09 01/21/22 14:09 01/21/22 14:09 Oxygen Delivery Method Room Air Weight: 90.904 kg Body Mass Index (BMI) 36.6 Physical Exam Extremity Extremity Narrative: Left foot Transmetatarsal amputation. There is healed anterior ankle /lower leg ulcer site with full epithelialization. The skin is very friable and thin at this site with hypopigmentation. the lateral left leg ulcer granular base noted now with a posterior skin discontinuity site; cluster. There is no longer any eschar, hypergranular, or deep tissue exposure. There is no crepitus, no visible abscess noted to the left foot, ankle or leg. Right fifth toe ulcer site is now healed with full epithelialization Decreased sensation to the left foot c/w chronic peripheral neuropathy, no evidence of acute ischemia to the bilateral foot or ankle, no evidence of charcot neuroarthropathy or compartment syndrome either. Reduced palpable pulse left. Lower extremity edema mild Debridement Note Debridement Note Wound debrided: lateral left leg cluster Wound Grade/Stage: 1 Type of Debridement: Excisional debridement Anesthesia Used: 4% Lidocaine Solution Depth: in the subcutaneous layer Percentage of wound debrided: 100 Instrument Used: #15 blade Tissue Removed: fibrous, devitalized subcutaneous, biofilm, slough Severity: Fat Layer Exposed Amount of bleeding with debridement: Mild Bleeding Controlled with: Pressure Patient tolerated procedure: Patient tolerated procedure well Post-Debridement Measurements and Additional Note: Post-Debridement Measurements/Treatment WC - Nurse 1 - General Ulcer Assessment Start: 01/07/22 13:14 Freq: Status: Active Protocol: MARILIA Activity Type Activity Date Activity User E-Sign Co-Sign Detail Recorded Client Recorded Date Recorded By Document 01/07/22 13:14 BMF [id number] 01/07/22 13:27 BMF Edit Result 01/07/22 13:14 BMF (1) [id number] 01/07/22 13:28 BMF Document 01/14/22 08:12 RB [id number] 01/14/22 08:25 RB Document 01/21/22 14:09 DL [id number] 01/21/22 14:17 DL (1) Comment => COUNSELED PT R/T => BP; 01/07/22 01/14/22 01/21/22 13:14 08:12 14:09 - Today's Visit Information Type of service Follow-up Visit Follow-up Visit Follow-up Visit (Physician/JAVA PERFORMANCE ENGINEER (Physician/JAVA PERFORMANCE ENGINEER (Physician/JAVA PERFORMANCE ENGINEER ) ) ) Arrival Mode Wheelchair Wheelchair Wheelchair Transfer Assistance None Manual Manual Transfer Assist (Other) x1 Accompanied by DAUGHTER granddaughter Patient Identification Verified (Name & Yes Yes Yes ) Patient Requires Transmission-Based No No No Precautions Finger Stick Blood Sugar(mg/dl) (if 200 indicated): Blood Sugar Stated by Patient Height and Weight Body Mass Index (BMI) 36.6 36.6 36.6 BMI Classification Obese Obese Obese Temperature (97.8 F-99.1 F) 97.7 F L 98.1 F Temperature Source Temporal Temporal Vital Signs Pulse Rate (60-100) 54 L 60 106 H Pulse Location Monitor Monitor Monitor Respiratory Rate (12-18) 16 18 20 H Respiratory rate source Observation Observation Observation Oxygen Delivery Method Room Air Blood Pressure (90/60-120/80) 183/71 H 188/71 H 145/91 H Blood Pressure Mean (mm Hg) 108 110 109 Source Monitor Monitor Monitor Position Sitting Blood Pressure Location Right Forearm Left Arm Comment COUNSELED PT R/ T BP; History Since Last Visit- (Skip if this is Patient's initial visit) Have you changed medications since your Yes No No last visit? Any new allergies or adverse reactions No No No Had a fall/change in ADL's that may No No No increase risk of falls Signs or symptoms of abuse and/or No No No neglect since last visit Have you been in the hospital since your No No No last visit? Has dressing in place as prescribed Yes Yes Yes Has compression in place as prescribed Yes Yes Yes Has offloadiing in place as prescribed Yes No Yes Experienced any changes in pain level or No No No management Left Footwear Other Footwear Slipper (Comment) Right Footwear Slipper Other Footwear ALEJANDRO TO LLE Pain Scale: 0-10 Numeric Is Patient Pain Free? Yes Yes Yes WC - Nurse 1 - General Ulcer Measurement Start: 01/07/22 13:14 Freq: Status: Active Protocol: Activity Type Activity Date Activity User E-Sign Co-Sign Detail Recorded Client Recorded Date Recorded By Document 01/07/22 13:14 [facility] [id number] 01/07/22 13:27 [facility] Document 01/14/22 08:12 RB [id number] 01/14/22 08:25 RB Document 01/21/22 14:09 DL [id number] 01/21/22 14:17 DL 01/07/22 01/14/22 01/21/22 13:14 08:12 14:09 Wound Center Nurse 1 4-right 5th toe -Combined with other wound No -Current Size (cm) - Length 0.1 0.1 -Current Size (cm) - Width 0.1 0.1 -Current Size (cm) - Depth 0.1 0.1 -Total Square Cm 0.01 0.01 -Photo Taken No -Tunneling No -Undermining/Tunneling No -Circular Undermining No -Exudate Amt Medium None Present -Exudate Type Serosanguineous -Wound Margin Distinct, Indistinct, Non Outline -Visible Attached -Granulation Amt Medium (34-66%) Small (1-33%) -Granulation Quality Red Pale,[place] -Slough/Fibrin Yes -Necrosis Amt Small (1-33%) None Present (0 %) -Necrotic Tissue Type Adherent Slough -Structure Exposed N/A N/A -Texture (Frances-wound Skin Appearance) Assessed No Abnormality -Moisture (Frances-wound Skin Appearance) Assessed Dry/Scaly -Color (Frances-wound Skin Appearance) Assessed No Abnormality -Temperature (Frances-wound Skin No Abnormality No Abnormality Appearance) (Pt Warm) (Pt Warm) -Tenderness on Palpation (Frances-wound No No Skin Appearance) -Ulcer Cleansing Wound Cleanser Soap and Water -Foul Odor after Cleansing No No -Anesthetic Used 5% Lidocaine 5% Lidocaine Gel Gel 3. L lateral LE -Combined with other wound No No -Current Size (cm) - Length 14.6 15 18.5 -Current Size (cm) - Width 1.9 1.5 4.5 -Current Size (cm) - Depth 0.1 0.1 0.1 -Total Square Cm 27.74 22.5 83.25 -Photo Taken No No -Epithelialization Small 1-33% -Tunneling No No -Undermining/Tunneling No No -Circular Undermining No No -Exudate Amt Large Large Medium -Exudate Type Sanguineous Serosanguineous Serosanguineous -Wound Margin Distinct, Distinct, Distinct, Outline Outline Outline Attached Attached Attached -Granulation Amt Large (67-100%) Medium (34-66%) Medium (34-66%) -Granulation Quality Red Red Red -Slough/Fibrin Yes Yes -Necrosis Amt Small (1-33%) Small (1-33%) Medium (34-66%) -Necrotic Tissue Type Adherent Slough Adherent Slough Adherent Slough -Structure Exposed N/A N/A -Texture (Frances-wound Skin Appearance) Assessed, Scarring Scarring Scarring -Moisture (Frances-wound Skin Appearance) Assessed,Dry/ Assessed Dry/Scaly Scaly -Color (Frances-wound Skin Appearance) Assessed Assessed Hemosiderin Staining -Temperature (Frances-wound Skin No Abnormality No Abnormality No Abnormality Appearance) (Pt Warm) (Pt Warm) (Pt Warm) -Tenderness on Palpation (Francse-wound Yes No No Skin Appearance) -Ulcer Cleansing Soap and Water Wound Cleanser Soap and Water -Foul Odor after Cleansing No No No -Anesthetic Used 4% Lidocaine 5% Lidocaine 4% Lidocaine Solution Gel Solution 2. L dorsal foot -Current Size (cm) - Length 0.1 -Current Size (cm) - Width 0.1 -Current Size (cm) - Depth 0.1 -Total Square Cm 0.01 -Photo Taken No -Tunneling No -Undermining/Tunneling No -Circular Undermining No -Exudate Amt Small -Exudate Type Serous -Wound Margin Distinct, Outline Attached -Granulation Amt None Present (0 %) -Slough/Fibrin Yes -Necrosis Amt Large (67-100%) -Necrotic Tissue Type Adherent Slough -Texture (Frances-wound Skin Appearance) Assessed, Scarring -Moisture (Frances-wound Skin Appearance) Assessed,Dry/ Scaly -Color (Frances-wound Skin Appearance) Assessed -Temperature (Frances-wound Skin No Abnormality Appearance) (Pt Warm) -Tenderness on Palpation (Frances-wound Yes Skin Appearance) -Ulcer Cleansing Soap and Water -Foul Odor after Cleansing No -Anesthetic Used 5% Lidocaine Gel WC - Nurse 2 - General Ulcer CM Notes Start: 01/07/22 13:14 Freq: Status: Active Protocol: Activity Type Activity Date Activity User E-Sign Co-Sign Detail Recorded Client Recorded Date Recorded By Document 01/07/22 13:40 [id number] 01/07/22 13:49 Document 01/14/22 08:50 [id number] 01/14/22 08:54 Document 01/21/22 14:24 [id number] 01/21/22 14:33 01/07/22 01/14/22 01/21/22 13:40 08:50 14:24 Wound Center Nurse 2 4-right 5th toe -Time 13:48 08:52 -Correct Patient Yes Yes No -Correct Side, Site, Position Yes Yes No -Correct Procedure Yes Yes No -Procedure Performed Yes Yes No -Type of Procedure Debridement Debridement -Clinical Debridement Subcutaneous Subcutaneous -Tissue Removed Subcutaneous Subcutaneous -Post Debridement (cm) - Length 0.5 0.2 0 -Post Debridement (cm) - Width 0.4 0.3 0 -Post Debridement (cm) - Depth 0.1 0.1 0 -Total Square (Post) (cm) 0.20 0.06 0 -Area of Debridement (cm) - Length 0.5 0.2 0 -Area of Debridement (cm) - Width 0.4 0.3 0 -Total Square (Area) (cm) 0.20 0.06 0 -Tunneling No No -Undermining/Tunneling No No -Circular Undermining No No -Wound/Ulcer Outcome Not Healed Not Healed Healed- Epithelialized -Ulcer Cleansing Rinsed/ Rinsed/ Irrigated with Irrigated with Saline Saline -Foul Odor after Cleansing No No -Bioengineered Tissue No No -Offloading No No -Treatment Response Procedure Procedure Tolerated Well Tolerated Well -Debridement - Subq, 1st 20sq cm No Yes 3. L lateral LE -Time 13:41 08:52 14:24 -Correct Patient Yes Yes Yes -Correct Side, Site, Position Yes Yes Yes -Correct Procedure Yes Yes Yes -Procedure Performed Yes Yes Yes -Type of Procedure Debridement Debridement Debridement -Clinical Debridement Subcutaneous Subcutaneous Subcutaneous -Tissue Removed Subcutaneous Subcutaneous Subcutaneous -Post Debridement (cm) - Length 14.6 15.1 11.0 -Post Debridement (cm) - Width 2 1.6 2.5 -Post Debridement (cm) - Depth 0.1 0.1 0.1 -Total Square (Post) (cm) 29.2 24.16 27.50 -Area of Debridement (cm) - Length 14.6 15.1 11 -Area of Debridement (cm) - Width 2 1.6 2.5 -Total Square (Area) (cm) 29.2 24.16 27.5 -Tunneling No No No -Undermining/Tunneling No No No -Circular Undermining No No No -Wound/Ulcer Outcome Not Healed Not Healed Not Healed -Ulcer Cleansing Rinsed/ Rinsed/ Rinsed/ Irrigated with Irrigated with Irrigated with Saline Saline Saline -Foul Odor after Cleansing No No No -Bioengineered Tissue No Yes Yes -Type of Bioengineered Tissue Epifix Mesh Epifix Mesh -Expiration Date 10/08/26 10/08/26 -Product Lot Number [id number] -Percent Used 100 100 -Lot number of Saline Used [id number] -Bleeding Controlled with Pressure Pressure Pressure -Offloading No No No -Treatment Response Procedure Procedure Procedure Tolerated Well Tolerated Well Tolerated Well -Debridement - Subq, 1st 20sq cm Yes No No -Debridement, SubQ, ea addt'l 20sq cm 1 or part thereof -Apply Skin Sub - 1st 25 sq cm - Legs 1 1 -Apply Skin Sub - each addt'l 25 sq cm 1 1 - Legs -Epifix Mesh (per sq cm) 11 11 2. L dorsal foot -Correct Patient No -Correct Side, Site, Position No -Correct Procedure No -Procedure Performed No -Post Debridement (cm) - Length 0 -Post Debridement (cm) - Width 0 -Post Debridement (cm) - Depth 0 -Total Square (Post) (cm) 0 -Area of Debridement (cm) - Length 0 -Area of Debridement (cm) - Width 0 -Total Square (Area) (cm) 0 -Wound/Ulcer Outcome Healed- Epithelialized Pain Scale: 0-10 Numeric Is Patient Pain Free? Yes Yes Yes WC - Nurse 3 - General Ulcer D/C NN Start: 01/07/22 13:14 Freq: Status: Active Protocol: Activity Type Activity Date Activity User E-Sign Co-Sign Detail Recorded Client Recorded Date Recorded By Document 01/14/22 09:12 JEANCARLOS [id number] 01/14/22 09:13 JEANCARLOS 01/14/22 09:12 Wound Care Nurse 3 4-right 5th toe -Ulcer Cleansing Rinsed/ Irrigated with Saline -Primary Dressing Applied Aquacel AG 4x4 -Primary Dressing Covered/Secured with Dry Gauze, Secured with Tape -Aquacel AG 4x4 1 3. L lateral LE -Other Dressing alejandro LLE -Primary Dressing Covered/Secured with Dry Gauze,Dry Gauze & Roll Gauze,Secured with Tape Pain Scale: 0-10 Numeric Is Patient Pain Free? 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: CODE(S): L97.922 - Non-pressure chronic ulcer of unspecified part of left lower leg with fat layer exposed (5) Type 2 diabetes mellitus with diabetic polyneuropathy: CODE(S): E11.42 - Type 2 diabetes mellitus with diabetic polyneuropathy QUALIFIERS: Diabetes mellitus penitentiary insulin use: with supervisor long goods use Qualified Code(s): E11.42 - Type 2 diabetes mellitus with diabetic polyneuropathy; Z79.4 - long-term (current) use of insulin (6) Malnutrition: CODE(S): E46 - Unspecified protein-calorie malnutrition QUALIFIERS: Malnutrition type: protein-calorie malnutrition Protein-calorie malnutrition severity: moderate Qualified Code(s): E44.0 - Moderate protein-calorie malnutrition (7) Chronic ulcer of right foot with fat layer exposed: CODE(S): L97.512 - Non-pressure chronic ulcer of other part of right foot with fat layer exposed PLAN: I reviewed and discussed her case today. Debridement was performed today as noted in the clinical panel to all of the ulcer site. It is noted that the anterior distal left leg ulcer site remains healed. The right foot ulcer site is also healed. The following work up and care recommendations were made: Dressing: To apply Aquacel Ag to the right foot ulcer. Epi fix, advancing healing product was applied to the lateral left leg ulcer site and was secured with a wound veil and Steri-Strips after verbal consent was obtained. This was applied according standard protocol. Topical local anesthetic was utilized for pain control prior to this debridement. She tolerated this well. A dry dressing was applied with gauze and she is advised to keep a secondary dressing clean, dry, and intact until follow-up visit. It is noted this is a different s ite to the previously applied epifix product. This is medically necessary. To discontinue dressing care to the right foot because the site is healed. Wash: Antibacterial soap and water Offload: Continue offloading pillow to take pressure off of the side of her leg.she has a donut pillow and I recommend the use of a proximal blanket or pillow to offload her central leg ulcer cluster site. Ok to place partial weight to plantar left foot at this time. To avoid excessive ambulation which she is not doing anyways at this time. To avoid direct pressure to the right fifth toe also. Is noted she is wearing soft slippers and this appears to be appropriate. Vascular: She is under the care of Dr. Aguilar, vascular surgeon. On 08-20-21 she had catheterization in place to the anterior tibial artery and a balloon angioplasty performed in the popliteal into the proximal anterior tib. To follow-up as scheduled. Additional intervention is not planned at this time and she reports she followed with Dr. Aguilar this morning who wrote recommended monitoring her staged improvement. To continue on Plavix. Edema: Alejandro wrap applied Infection: This has resolved and her surgical site has also healed. She was previously under the care of infectious disease specialist. Wound cx and surg cx with MRSA, raoultella, citrobacter. Clearance cx with some MRSA and anaerobes. Superficial raoultella was R to cefepime, but surg cx was S and clearance cx was neg for GNR. She was on vanc/meropenem with stop date 09/19/21. There is resolution of local and systemic signs of illness at this time Pain: This is not present because of her neuropathy. Surgically, she had a transmetatarsal amputation and debridement of the ulcers on 08-08-21 at [facility]. Host factors: She is diabetic and her hemoglobin A1c was recently improved to 6.9% (08-07-21). To continue to work with primary care physician on medical management. I recommend nutritional supplementation optimize healing. She is on Vlad and Glucerna. It is also noted she is on a new course of prednisone for her chest and upper extremity dermatitis with subsequent wound formation. To complete the course as advised by her primary care physician. She understands prednisone may slow wound healing if using a chronic manner and this will be monitored. I answered all the patient's questions. To return to the wound healing center in 1 week or call sooner if the patient has any questions or concerns.
[2022-01-28 14:10] VITALS: BP 195/72; PULSE 57; RESP 20; TEMP 36.2; BMI 36.6
--- NOTE | 2022-01-28 14:38 | PCM.WC.PN ---
History of Present Illness Date of Service: 01/28/22 Chief Complaint: Left lower extremity ulcers History of Wound: This 72-year-old female following up for left chronic leg ulcer. She also recently had vascular surgery intervention and continues on Plavix. She is taking nutritional supplementation. She is with her grand daughter today. The granddaughter has been trying to help her better offload her left leg ulcer site however she does lay on this side while watching TV everyday. Progress of Wound: stable status left leg ulcer Objective Data Objective Data Vital Signs: Vital Signs Temp Pulse Resp BP 97.2 F L 57 L 20 H 195/72 H 01/28/22 14:10 01/28/22 14:10 01/28/22 14:10 01/28/22 14:10 Oxygen Delivery Method Room Air Weight: 90.904 kg Body Mass Index (BMI) 36.6 Physical Exam Extremity Extremity Narrative: Left foot Transmetatarsal amputation. There is healed anterior ankle /lower leg ulcer site with full epithelialization. Skin remodeling progression is noted. the lateral left leg ulcer granular base noted now with a posterior skin discontinuity site; cluster. Distal aspect is minimal fibrous tissue and the rest of granulation tissue. there is no longer any eschar, hypergranular, or deep tissue exposure. There is no crepitus, no visible abscess noted to the left foot, ankle or leg. Decreased sensation to the left foot c/w chronic peripheral neuropathy, no evidence of acute ischemia to the bilateral foot or ankle, no evidence of charcot neuroarthropathy or compartment syndrome either. Reduced palpable pulse left. Lower extremity edema mild Debridement Note Debridement Note Wound debrided: lateral leg cluster Wound Grade/Stage: 1 Type of Debridement: Excisional debridement Anesthesia Used: 4% Lidocaine Solution Depth: in the subcutaneous layer Percentage of wound debrided: 100 Instrument Used: #15 blade Tissue Removed: fibrous, devitalized subcutaneous, biofilm, slough Severity: Fat Layer Exposed Amount of bleeding with debridement: Mild Bleeding Controlled with: Pressure Patient tolerated procedure: Patient tolerated procedure well Post-Debridement Measurements and Additional Note: Post-Debridement Measurements/Treatment WC - Nurse 1 - General Ulcer Assessment Start: 01/07/22 13:14 Freq: Status: Active Protocol: SETH.LOWEXT Activity Type Activity Date Activity User E-Sign Co-Sign Detail Recorded Client Recorded Date Recorded By Document 01/07/22 13:14 BMF [id number] 01/07/22 13:27 BMF Edit Result 01/07/22 13:14 BMF (1) [id number] 01/07/22 13:28 BMF Document 01/14/22 08:12 RB [id number] 01/14/22 08:25 RB Document 01/21/22 14:09 DL [id number] 01/21/22 14:17 DL Document 01/28/22 14:10 DL [id number] 01/28/22 14:20 DL (1) Comment => COUNSELED PT R/T => BP; 01/07/22 01/14/22 01/21/22 13:14 08:12 14:09 WC - Today's Visit Information Type of service Follow-up Visit Follow-up Visit Follow-up Visit (Physician/HALAL MEAT PACKER (Physician/HALAL MEAT PACKER (Physician/HALAL MEAT PACKER ) ) ) Arrival Mode Wheelchair Wheelchair Wheelchair Transfer Assistance None Manual Manual Transfer Assist (Other) x1 Accompanied by DAUGHTER granddaughter Patient Identification Verified (Name & Yes Yes Yes ) Patient Requires Transmission-Based No No No Precautions Finger Stick Blood Sugar(mg/dl) (if 200 indicated): Blood Sugar Stated by Patient Height and Weight Body Mass Index (BMI) 36.6 36.6 36.6 BMI Classification Obese Obese Obese Temperature (97.8 F-99.1 F) 97.7 F L 98.1 F Temperature Source Temporal Temporal Vital Signs Pulse Rate (60-100) 54 L 60 106 H Pulse Location Monitor Monitor Monitor Respiratory Rate (12-18) 16 18 20 H Respiratory rate source Observation Observation Observation Oxygen Delivery Method Room Air Blood Pressure (90/60-120/80) 183/71 H 188/71 H 145/91 H Blood Pressure Mean (mm Hg) 108 110 109 Source Monitor Monitor Monitor Position Sitting Blood Pressure Location Right Forearm Left Arm Comment COUNSELED PT R/ T BP; History Since Last Visit- (Skip if this is Patient's initial visit) Have you changed medications since your Yes No No last visit? Any new allergies or adverse reactions No No No Had a fall/change in ADL's that may No No No increase risk of falls Signs or symptoms of abuse and/or No No No neglect since last visit Have you been in the hospital since your No No No last visit? Has dressing in place as prescribed Yes Yes Yes Has compression in place as prescribed Yes Yes Yes Has offloadiing in place as prescribed Yes No Yes Experienced any changes in pain level or No No No management Left Footwear Other Footwear Slipper (Comment) Right Footwear Slipper Other Footwear ALEJANDRO TO LLE Pain Scale: 0-10 Numeric Is Patient Pain Free? Yes Yes Yes 01/28/22 14:10 WC - Today's Visit Information Type of service Follow-up Visit (Physician/HALAL MEAT PACKER ) Arrival Mode Wheelchair Transfer Assistance Manual Transfer Assist (Other) x2 Accompanied by Patient Identification Verified (Name & Yes ) Patient Requires Transmission-Based No Precautions Finger Stick Blood Sugar(mg/dl) (if indicated): Blood Sugar Height and Weight Body Mass Index (BMI) 36.6 BMI Classification Obese Temperature (97.8 F-99.1 F) 97.2 F L Temperature Source Temporal Vital Signs Pulse Rate (60-100) 57 L Pulse Location Monitor Respiratory Rate (12-18) 20 H Respiratory rate source Observation Oxygen Delivery Method Blood Pressure (90/60-120/80) 195/72 H Blood Pressure Mean (mm Hg) 113 Source Monitor Position Blood Pressure Location Comment History Since Last Visit- (Skip if this is Patient's initial visit) Have you changed medications since your No last visit? Any new allergies or adverse reactions No Had a fall/change in ADL's that may No increase risk of falls Signs or symptoms of abuse and/or No neglect since last visit Have you been in the hospital since your No last visit? Has dressing in place as prescribed Yes Has compression in place as prescribed Yes Has offloadiing in place as prescribed Yes Experienced any changes in pain level or No management Left Footwear Right Footwear Other Footwear Pain Scale: 0-10 Numeric Is Patient Pain Free? Yes - Nurse 1 - General Ulcer Measurement Start: 01/07/22 13:14 Freq: Status: Active Protocol: Activity Type Activity Date Activity User E-Sign Co-Sign Detail Recorded Client Recorded Date Recorded By Document 01/07/22 13:14 [facility] [id number] 01/07/22 13:27 BMF Document 01/14/22 08:12 RB [id number] 01/14/22 08:25 RB Document 01/21/22 14:09 DL [id number] 01/21/22 14:17 DL Document 01/28/22 14:10 DL [id number] 01/28/22 14:20 DL 01/07/22 01/14/22 01/21/22 13:14 08:12 14:09 Wound Center Nurse 1 4-right 5th toe -Combined with other wound No -Current Size (cm) - Length 0.1 0.1 -Current Size (cm) - Width 0.1 0.1 -Current Size (cm) - Depth 0.1 0.1 -Total Square Cm 0.01 0.01 -Photo Taken No -Tunneling No -Undermining/Tunneling No -Circular Undermining No -Exudate Amt Medium None Present -Exudate Type Serosanguineous -Wound Margin Distinct, Indistinct, Non Outline -Visible Attached -Granulation Amt Medium (34-66%) Small (1-33%) -Granulation Quality Red Pale,Dresser -Slough/Fibrin Yes -Necrosis Amt Small (1-33%) None Present (0 %) -Necrotic Tissue Type Adherent Slough -Structure Exposed N/A N/A -Texture (Frances-wound Skin Appearance) Assessed No Abnormality -Moisture (Frances-wound Skin Appearance) Assessed Dry/Scaly -Color (Frances-wound Skin Appearance) Assessed No Abnormality -Temperature (Frances-wound Skin No Abnormality No Abnormality Appearance) (Pt Warm) (Pt Warm) -Tenderness on Palpation (Frances-wound No No Skin Appearance) -Ulcer Cleansing Wound Cleanser Soap and Water -Foul Odor after Cleansing No No -Anesthetic Used 5% Lidocaine 5% Lidocaine Gel Gel 3. L lateral LE -Combined with other wound No No -Current Size (cm) - Length 14.6 15 18.5 -Current Size (cm) - Width 1.9 1.5 4.5 -Current Size (cm) - Depth 0.1 0.1 0.1 -Total Square Cm 27.74 22.5 83.25 -Photo Taken No No -Epithelialization Small 1-33% -Tunneling No No -Undermining/Tunneling No No -Circular Undermining No No -Exudate Amt Large Large Medium -Exudate Type Sanguineous Serosanguineous Serosanguineous -Wound Margin Distinct, Distinct, Distinct, Outline Outline Outline Attached Attached Attached -Granulation Amt Large (67-100%) Medium (34-66%) Medium (34-66%) -Granulation Quality Red Red Red -Slough/Fibrin Yes Yes -Necrosis Amt Small (1-33%) Small (1-33%) Medium (34-66%) -Necrotic Tissue Type Adherent Slough Adherent Slough Adherent Slough -Structure Exposed N/A N/A -Texture (Frances-wound Skin Appearance) Assessed, Scarring Scarring Scarring -Moisture (Frances-wound Skin Appearance) Assessed,Dry/ Assessed Dry/Scaly Scaly -Color (Frances-wound Skin Appearance) Assessed Assessed Hemosiderin Staining -Temperature (Frances-wound Skin No Abnormality No Abnormality No Abnormality Appearance) (Pt Warm) (Pt Warm) (Pt Warm) -Tenderness on Palpation (Frances-wound Yes No No Skin Appearance) -Ulcer Cleansing Soap and Water Wound Cleanser Soap and Water -Foul Odor after Cleansing No No No -Anesthetic Used 4% Lidocaine 5% Lidocaine 4% Lidocaine Solution Gel Solution 2. L dorsal foot -Current Size (cm) - Length 0.1 -Current Size (cm) - Width 0.1 -Current Size (cm) - Depth 0.1 -Total Square Cm 0.01 -Photo Taken No -Tunneling No -Undermining/Tunneling No -Circular Undermining No -Exudate Amt Small -Exudate Type Serous -Wound Margin Distinct, Outline Attached -Granulation Amt None Present (0 %) -Slough/Fibrin Yes -Necrosis Amt Large (67-100%) -Necrotic Tissue Type Adherent Slough -Texture (Frances-wound Skin Appearance) Assessed, Scarring -Moisture (Frances-wound Skin Appearance) Assessed,Dry/ Scaly -Color (Frances-wound Skin Appearance) Assessed -Temperature (Frances-wound Skin No Abnormality Appearance) (Pt Warm) -Tenderness on Palpation (Frances-wound Yes Skin Appearance) -Ulcer Cleansing Soap and Water -Foul Odor after Cleansing No -Anesthetic Used 5% Lidocaine Gel 01/28/22 14:10 Wound Center Nurse 1 4-right 5th toe -Combined with other wound -Current Size (cm) - Length -Current Size (cm) - Width -Current Size (cm) - Depth -Total Square Cm -Photo Taken -Tunneling -Undermining/Tunneling -Circular Undermining -Exudate Amt -Exudate Type -Wound Margin -Granulation Amt -Granulation Quality -Slough/Fibrin -Necrosis Amt -Necrotic Tissue Type -Structure Exposed -Texture (Frances-wound Skin Appearance) -Moisture (Frances-wound Skin Appearance) -Color (Frances-wound Skin Appearance) -Temperature (Frances-wound Skin Appearance) -Tenderness on Palpation (Frances-wound Skin Appearance) -Ulcer Cleansing -Foul Odor after Cleansing -Anesthetic Used 3. L lateral LE -Combined with other wound -Current Size (cm) - Length 15.2 -Current Size (cm) - Width 1 -Current Size (cm) - Depth 0.6 -Total Square Cm 15.2 -Photo Taken No -Epithelialization -Tunneling -Undermining/Tunneling -Circular Undermining -Exudate Amt Medium -Exudate Type -Wound Margin Distinct, Outline Attached -Granulation Amt Medium (34-66%) -Granulation Quality Red -Slough/Fibrin -Necrosis Amt Medium (34-66%) -Necrotic Tissue Type Adherent Slough -Structure Exposed N/A -Texture (Frances-wound Skin Appearance) Scarring -Moisture (Frances-wound Skin Appearance) Dry/Scaly -Color (Frances-wound Skin Appearance) Hemosiderin Staining -Temperature (Frances-wound Skin No Abnormality Appearance) (Pt Warm) -Tenderness on Palpation (Frances-wound No Skin Appearance) -Ulcer Cleansing Soap and Water -Foul Odor after Cleansing No -Anesthetic Used 4% Lidocaine Solution 2. L dorsal foot -Current Size (cm) - Length -Current Size (cm) - Width -Current Size (cm) - Depth -Total Square Cm -Photo Taken -Tunneling -Undermining/Tunneling -Circular Undermining -Exudate Amt -Exudate Type -Wound Margin -Granulation Amt -Slough/Fibrin -Necrosis Amt -Necrotic Tissue Type -Texture (Frances-wound Skin Appearance) -Moisture (Frances-wound Skin Appearance) -Color (Frances-wound Skin Appearance) -Temperature (Frances-wound Skin Appearance) -Tenderness on Palpation (Frances-wound Skin Appearance) -Ulcer Cleansing -Foul Odor after Cleansing -Anesthetic Used WC - Nurse 2 - General Ulcer CM Notes Start: 01/07/22 13:14 Freq: Status: Active Protocol: Activity Type Activity Date Activity User E-Sign Co-Sign Detail Recorded Client Recorded Date Recorded By Document 01/07/22 13:40 [id number] 01/07/22 13:49 Document 01/14/22 08:50 [id number] 01/14/22 08:54 Document 01/21/22 14:24 [id number] 01/21/22 14:33 Document 01/28/22 14:31 [id number] 01/28/22 14:35 01/07/22 01/14/22 01/21/22 13:40 08:50 14:24 Wound Center Nurse 2 4-right 5th toe -Time 13:48 08:52 -Correct Patient Yes Yes No -Correct Side, Site, Position Yes Yes No -Correct Procedure Yes Yes No -Procedure Performed Yes Yes No -Type of Procedure Debridement Debridement -Clinical Debridement Subcutaneous Subcutaneous -Tissue Removed Subcutaneous Subcutaneous -Post Debridement (cm) - Length 0.5 0.2 0 -Post Debridement (cm) - Width 0.4 0.3 0 -Post Debridement (cm) - Depth 0.1 0.1 0 -Total Square (Post) (cm) 0.20 0.06 0 -Area of Debridement (cm) - Length 0.5 0.2 0 -Area of Debridement (cm) - Width 0.4 0.3 0 -Total Square (Area) (cm) 0.20 0.06 0 -Tunneling No No -Undermining/Tunneling No No -Circular Undermining No No -Wound/Ulcer Outcome Not Healed Not Healed Healed- Epithelialized -Ulcer Cleansing Rinsed/ Rinsed/ Irrigated with Irrigated with Saline Saline -Foul Odor after Cleansing No No -Bioengineered Tissue No No -Treatment Response Procedure Procedure Tolerated Well Tolerated Well -Offloading No No -Debridement - Subq, 1st 20sq cm No Yes 3. L lateral LE -Time 13:41 08:52 14:24 -Correct Patient Yes Yes Yes -Correct Side, Site, Position Yes Yes Yes -Correct Procedure Yes Yes Yes -Procedure Performed Yes Yes Yes -Type of Procedure Debridement Debridement Debridement -Clinical Debridement Subcutaneous Subcutaneous Subcutaneous -Tissue Removed Subcutaneous Subcutaneous Subcutaneous -Post Debridement (cm) - Length 14.6 15.1 11.0 -Post Debridement (cm) - Width 2 1.6 2.5 -Post Debridement (cm) - Depth 0.1 0.1 0.1 -Total Square (Post) (cm) 29.2 24.16 27.50 -Area of Debridement (cm) - Length 14.6 15.1 11 -Area of Debridement (cm) - Width 2 1.6 2.5 -Total Square (Area) (cm) 29.2 24.16 27.5 -Tunneling No No No -Undermining/Tunneling No No No -Circular Undermining No No No -Wound/Ulcer Outcome Not Healed Not Healed Not Healed -Ulcer Cleansing Rinsed/ Rinsed/ Rinsed/ Irrigated with Irrigated with Irrigated with Saline Saline Saline -Foul Odor after Cleansing No No No -Bioengineered Tissue No Yes Yes -Type of Bioengineered Tissue Epifix Mesh Epifix Mesh -Expiration Date 10/08/26 10/08/26 -Product Lot Number [id number] -Percent Used 100 100 -Lot number of Saline Used [id number] -Bleeding Controlled with Pressure Pressure Pressure -Treatment Response Procedure Procedure Procedure Tolerated Well Tolerated Well Tolerated Well -Offloading No No No -Type of Offloading -Other Type of Offloading -Total Non-Weight Bearing to -Debridement - Subq, 1st 20sq cm Yes No No -Debridement, SubQ, ea addt'l 20sq cm 1 or part thereof -Apply Skin Sub - 1st 25 sq cm - Legs 1 1 -Apply Skin Sub - each addt'l 25 sq cm 1 1 - Legs -Epifix Mesh (per sq cm) 11 11 2. L dorsal foot -Correct Patient No -Correct Side, Site, Position No -Correct Procedure No -Procedure Performed No -Post Debridement (cm) - Length 0 -Post Debridement (cm) - Width 0 -Post Debridement (cm) - Depth 0 -Total Square (Post) (cm) 0 -Area of Debridement (cm) - Length 0 -Area of Debridement (cm) - Width 0 -Total Square (Area) (cm) 0 -Wound/Ulcer Outcome Healed- Epithelialized Pain Scale: 0-10 Numeric Is Patient Pain Free? Yes Yes Yes 01/28/22 14:31 Wound Center Nurse 2 4-right 5th toe -Time -Correct Patient -Correct Side, Site, Position -Correct Procedure -Procedure Performed -Type of Procedure -Clinical Debridement -Tissue Removed -Post Debridement (cm) - Length -Post Debridement (cm) - Width -Post Debridement (cm) - Depth -Total Square (Post) (cm) -Area of Debridement (cm) - Length -Area of Debridement (cm) - Width -Total Square (Area) (cm) -Tunneling -Undermining/Tunneling -Circular Undermining -Wound/Ulcer Outcome -Ulcer Cleansing -Foul Odor after Cleansing -Bioengineered Tissue -Treatment Response -Offloading -Debridement - Subq, 1st 20sq cm 3. L lateral LE -Time 14:32 -Correct Patient Yes -Correct Side, Site, Position Yes -Correct Procedure Yes -Procedure Performed Yes -Type of Procedure Debridement -Clinical Debridement Subcutaneous -Tissue Removed Subcutaneous -Post Debridement (cm) - Length 15.2 -Post Debridement (cm) - Width 1.1 -Post Debridement (cm) - Depth 0.6 -Total Square (Post) (cm) 16.72 -Area of Debridement (cm) - Length 15.2 -Area of Debridement (cm) - Width 1.1 -Total Square (Area) (cm) 16.72 -Tunneling No -Undermining/Tunneling No -Circular Undermining No -Wound/Ulcer Outcome Not Healed -Ulcer Cleansing Rinsed/ Irrigated with Saline -Foul Odor after Cleansing No -Bioengineered Tissue Yes -Type of Bioengineered Tissue Epifix Mesh -Expiration Date 10/08/26 -Product Lot Number [id number] -Percent Used 100 -Lot number of Saline Used [id number] -Bleeding Controlled with Pressure -Treatment Response Procedure Tolerated Well -Offloading Yes -Type of Offloading Other -Other Type of Offloading donut brace -Total Non-Weight Bearing to Left Lower Extremity -Debridement - Subq, 1st 20sq cm No -Debridement, SubQ, ea addt'l 20sq cm or part thereof -Apply Skin Sub - 1st 25 sq cm - Legs 1 -Apply Skin Sub - each addt'l 25 sq cm - Legs -Epifix Mesh (per sq cm) 11 2. L dorsal foot -Correct Patient -Correct Side, Site, Position -Correct Procedure -Procedure Performed -Post Debridement (cm) - Length -Post Debridement (cm) - Width -Post Debridement (cm) - Depth -Total Square (Post) (cm) -Area of Debridement (cm) - Length -Area of Debridement (cm) - Width -Total Square (Area) (cm) -Wound/Ulcer Outcome Pain Scale: 0-10 Numeric Is Patient Pain Free? Yes WC - Nurse 3 - General Ulcer D/C NN Start: 01/07/22 13:14 Freq: Status: Active Protocol: Activity Type Activity Date Activity User E-Sign Co-Sign Detail Recorded Client Recorded Date Recorded By Document 01/14/22 09:12 JEANCARLOS [id number] 01/14/22 09:13 JEANCARLOS 01/14/22 09:12 Wound Care Nurse 3 4-right 5th toe -Ulcer Cleansing Rinsed/ Irrigated with Saline -Primary Dressing Applied Aquacel AG 4x4 -Primary Dressing Covered/Secured with Dry Gauze, Secured with Tape -Aquacel AG 4x4 1 3. L lateral LE -Other Dressing alejandro LLE -Primary Dressing Covered/Secured with Dry Gauze,Dry Gauze & Roll Gauze,Secured with Tape Pain Scale: 0-10 Numeric Is Patient Pain Free? 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: CODE(S): L97.922 - Non-pressure chronic ulcer of unspecified part of left lower leg with fat layer exposed (5) Type 2 diabetes mellitus with diabetic polyneuropathy: CODE(S): E11.42 - Type 2 diabetes mellitus with diabetic polyneuropathy QUALIFIERS: Diabetes mellitus pl sql developer insulin use: with pl sql developer use Qualified Code(s): E11.42 - Type 2 diabetes mellitus with diabetic polyneuropathy; Z79.4 - chief librarian extension department (current) use of insulin (6) Malnutrition: CODE(S): E46 - Unspecified protein-calorie malnutrition QUALIFIERS: Malnutrition type: protein-calorie malnutrition Protein-calorie malnutrition severity: moderate Qualified Code(s): E44.0 - Moderate protein-calorie malnutrition (7) Chronic ulcer of right foot with fat layer exposed: CODE(S): L97.512 - Non-pressure chronic ulcer of other part of right foot with fat layer exposed PLAN: I reviewed and discussed her case today. Debridement was performed today as noted in the clinical panel to all of the ulcer site. The following work up and care recommendations were made: Dressing: Epi fix, advancing healing product was applied to the lateral left leg ulcer site and was secured with a wound veil and Steri-Strips after verbal consent was obtained. This was applied according standard protocol. Topical local anesthetic was utilized for pain control prior to this debridement. She tolerated this well. A dry dressing was applied with gauze and she is advised to keep a secondary dressing clean, dry, and intact until follow-up visit. It is noted this is a different site to the previously applied epifix product. This is medically necessary. Offload: Continue offloading pillow to take pressure off of the side of her leg.she has a donut pillow and I recommend the use of a proximal blanket or pillow to offload her central leg ulcer cluster site. Ok to place partial weight to plantar left foot at this time. To avoid excessive ambulation which she is not doing anyways at this time. To avoid direct pressure to the right fifth toe also. Is noted she is wearing soft slippers and this appears to be appropriate. Vascular rearranged her room so she no longer needs to lay on her left side to be which she participates in most of the day. Vascular: She is under the care of Dr. Aguilar, vascular surgeon. On 08-20-21 she had catheterization in place to the anterior tibial artery and a balloon angioplasty performed in the popliteal into the proximal anterior tib. To follow-up as scheduled. Additional intervention is not planned at this time and she reports she followed with Dr. Aguilar this morning who wrote recommended monitoring her staged improvement. To continue on Plavix. Edema: Alejandro wrap applied Infection: This has resolved and her surgical site has also healed. She was previously under the care of infectious disease specialist. Wound cx and surg cx with MRSA, raoultella, citrobacter. Clearance cx with some MRSA and anaerobes. Superficial raoultella was R to cefepime, but surg cx was S and clearance cx was neg for GNR. She was on vanc/meropenem with stop date 09/19/21. There is resolution of local and systemic signs of illness at this time Pain: This is not present because of her neuropathy. Surgically, she had a transmetatarsal amputation and debridement of the ulcers on 08-08-21 at [facility]. Host factors: She is diabetic and her hemoglobin A1c was recently improved to 6.9% (08-07-21). To continue to work with primary care physician on medical management. I recommend nutritional supplementation optimize healing. She is on Vlad and Glucerna. It is also noted she is on a new course of prednisone for her chest and upper extremity dermatitis with subsequent wound formation. To complete the course as advised by her primary care physician. She understands prednisone may slow wound healing if using a chronic manner and this will be monitored. I answered all the patient's questions. To return to the wound healing center in 1 week or call sooner if the patient has any questions or concerns.
== END 2022-02-05 23:59 | disposition home or self-care (01) ==
LOC: WC 14:15
PROVIDERS: PCP Family Medicine Geriatric Medicine; Visit Provider Podiatrist
DX: E11.621 Type 2 diabetes mellitus with foot ulcer (principal); L97.512 Non-pressure chronic ulcer of other part of right foot with fat layer exposed; L97.922 Non-pressure chronic ulcer of unspecified part of left lower leg with fat layer exposed; E44.0 Moderate protein-calorie malnutrition; E11.620 Type 2 diabetes mellitus with diabetic dermatitis; E11.42 Type 2 diabetes mellitus with diabetic polyneuropathy; I73.9 Peripheral vascular disease, unspecified; Z79.4 Long term (current) use of insulin; R60.0 Localized edema; S90.822A Blister (nonthermal), left foot, initial encounter
CPT/HCPCS: 11042; 11045; 15271; 15272; Q4186

== ENCOUNTER 2022-02-21 14:11 | Inpatient (IN) | payer MEDICARE, MEDICAID, SELFPAY ==
[2022-02-21] VITALS (16 sets, daily range): BP systolic 160–193; BP diastolic 64–94; PULSE 56–65; RESP 15–18; TEMP 36.3–36.7; O2SAT 96–100; BMI 41.8
--- NOTE | 2022-02-21 14:14 | CT_ITS ---
STUDY: CT BRAIN WITHOUT CONTRAST REASON FOR EXAM: Female, 72 years old. Altered mental status aphasia shortness of breath RADIATION DOSAGE (If Supplied By Facility): CTDIvol = ( 44.99 ) mGy, DLP = ( 829.85 ) mGycm TECHNIQUE: Transaxial CT imaging of the brain was performed without administration of intravenous contrast material. Individualized dose optimization techniques were used for this CT. COMPARISON: No relevant priors. FINDINGS: There is an ill-defined hypodensity in the posterior right lee radiata, posterior limb of internal capsule and posterior aspect of lentiform nucleus, ischemia of unknown age. There is no mass effect, acute intracranial hemorrhage, extra parenchymal fluid collections, hydrocephalus or herniation. There is severe intracranial atherosclerosis with a densely calcified plaque in the carotids and vertebrals. The skull is intact. CT/Brain/Head without Contrast IMPRESSION: 1. No acute hemorrhage. 2. No territorial infarction. 3. Right internal capsule/lee radiata posterior white matter ischemia, unknown age, possibly nonacute. 4. Severe intracranial large vessel atherosclerosis. Electronically Signed: Maylin Power MD at 15:52 EDT ,
--- NOTE | 2022-02-21 14:14 | RAD_ITS ---
STUDY: X-RAY CHEST REASON FOR EXAM: Female, 72 years old. cough TECHNIQUE: Frontal portable view of the chest COMPARISON: 22 August 2021 FINDINGS: Pulmonary volumes are low. There is questionable right upper lobe opacity. There is no pneumothorax, cardiac regular, pulmonary edema or effusions. There is sternotomy and coronary bypass. There are surgical clips in the lower neck, probably thyroid surgery. Skeleton is intact. RAD/Chest 1 View (Portable) IMPRESSION: Possible right upper lobe pneumonia. Low pulmonary volumes. Electronically Signed: Maylin Power MD at 15:54 EDT ,
--- NOTE | 2022-02-21 14:15 | EKG12_ITS ---
Test Reason : SOB Blood Pressure : / mmHG Vent. Rate : 061 BPM Atrial Rate : 061 BPM P-R Int : 158 ms QRS Dur : 082 ms QT Int : 412 ms P-R-T Axes : 009 -02 084 degrees QTc Int : 414 ms Normal sinus rhythm Poor R wave progression Anteroseptal CA, age undetermined, cannot be excluded Nonspecific ST and T wave abnormality Confirmed by TORY NELSON, UCHE ([id number]), video news editor GYPSY BASS ([id number]) on 02/23/2022 11:01:31 AM Referred By: BRYSON Confirmed By:UCHE SPEARS MD
--- NOTE | 2022-02-21 14:17 | EDS_ITS ---
HPI <ZOHRA Cheek - Last Filed: 02/21/22 16:14> History of Present Illness Chief Complaint: Shortness of Breath Narrative Narrative: 72-year-old female with PMH of HTN, HLD, DM2, CAD, CKD, CVA with left hemiplegia, left BKA presents with possible aphasia. Her granddaughter thought that this morning she had more difficulty speaking. When EMS arrived she had some labored respirations and they were more concerned for shortness of breath. [place] stroke scale was negative. Her daughter Maame arrived and provided further history. The granddaughter had been concerned because this morning she was slurring her words. Here she was found to have a blood sugar of 46. She has been on prednisone for the last month to treat a rash on her left arm and has had labile blood sugars. She takes oral diabetic medications and long-acting insulin at night. She has been in good health this week until this morning. PFS <ZOHRA Cheek - Last Filed: 02/21/22 16:14> [facility] Medical History Cellulitis of left lower limb Chest pain Chronic headaches Chronic ulcer of left foot with necrosis of muscle Current use of insulin Depression Diabetic foot infection Diabetic nephropathy Difficulty chewing Difficulty swallowing DM (diabetes mellitus), type 2, uncontrolled DVT (deep venous thrombosis) Dyspnea High cholesterol History of stress test Irregular heartbeat Left foot infection Malnutrition Myocardial infarction Paralysis Peripheral vascular disease Post-menopausal Renal disease Restless legs Sleep apnea Status post amputation of toe of left foot Stroke Thyroiditis Type 2 diabetes mellitus with diabetic foot infection Ulcer Ulcer of left foot due to type 2 diabetes mellitus Home Medications amlodipine 10 mg PO DAILY 08/07/21 [History Last Taken Unknown] aspirin 81 mg PO DAILY 08/07/21 [History Last Taken Unknown] levothyroxine 125 mcg PO DAILY@0600 08/07/21 [History Last Taken Unknown] metoprolol tartrate 50 mg PO BID 08/07/21 [History Last Taken Unknown] pantoprazole 40 mg PO DAILY 08/07/21 [History Last Taken Unknown] atorvastatin 80 mg PO QHS 08/12/21 [History Last Taken Unknown] clopidogrel 75 mg PO DAILY 08/12/21 [History Last Taken Unknown] polyethylene glycol 3350 17 g PO DAILY 08/12/21 [History Last Taken Unknown] acetaminophen 1,000 mg PO Q6H PRN PRN #0 tab 08/29/21 [Rx Last Taken Unknown] bisacodyl 10 mg PO DAILY PRN #0 tab 08/29/21 [Rx Last Taken Unknown] oxycodone 5 mg PO Q4H PRN PRN 3 Days #18 tab 08/29/21 [Rx Last Taken Unknown] [id number] [Vlad (with collagen)] 1 packet PO BIDCM 02/21/22 [History Last Taken Unknown] citalopram 10 mg PO DAILY 02/21/22 [History Last Taken Unknown] ferrous sulfate [Iron (ferrous sulfate)] 325 mg PO DAILY 02/21/22 [History Last Taken Unknown] insulin glargine [Lantus Solostar U-100 Insulin] 40 unit SUBCUT QPM 02/21/22 [History Last Taken Unknown] menthol-zinc oxide [Calmoseptine] 1 applic TOPICAL BID 02/21/22 [History Last Taken Unknown] nystatin [Nyamyc] 1 applic TOPICAL BID 02/21/22 [History Last Taken Unknown] prednisone 40 mg PO DAILY 02/21/22 [History Last Taken Unknown] Allergy/AdvReac Type Severity Reaction Status Date / Time baclofen AdvReac Other Verified 01/07/22 11:24 Family History Mother CVA (cerebral vascular accident) Other Diabetes Heart disease Surgical History History of heart artery stent S/P tubal ligation Status post arterial stent Status post coronary artery bypass graft Status post coronary artery stent placement Status post hysterectomy Status post transmetatarsal amputation of left foot Social History household members: children Smoking Status: Never smoker ROS <ZOHRA Cheek - Last Filed: 02/21/22 16:14> ROS ED ROS Narrative Constitutional: Negative for fever, chills, malaise. Eyes: Negative for visual change. ENT: Negative for sore throat, ear pain, rhinorrhea. CVS: Negative for palpitations, chest pain, syncope. Respiratory: Negative for shortness of breath, cough, orthopnea. GI: Negative for abdominal pain, nausea, vomiting, diarrhea, constipation, melena, hematochezia. : Negative for dysuria, hematuria or frequency. Neuro: Negative for headache, motor/sensory dysfunction. Skin: Negative for rash, abscess, or wound. Musc: Negative for joint pain, swelling, trauma. Heme: Negative for easy bruising, bleeding, lymphadenopathy. EXAM <ZOHRA Cheek - Last Filed: 02/21/22 16:14> Physical Exam Narrative Exam Narrative: CONST: Patient sitting in no acute distress. EYES: Normal inspection. ENT: Normal inspection, moist mucous membranes. NECK: Normal inspection. No JVD. RESP: Audible rattling, bibasilar crackles. CVS: Regular rate and rhythm, no murmur, no gallop. ABD: Soft and nontender, no guarding or rebound, nondistended. Back: Normal inspection. SKIN: Color normal, no rash, warm, dry, intact. EXTREMITIES: Left lower leg amputation, right leg has no edema. Able to move RUE/RLE, left hemiparalysis. NEURO: Oriented to self only. PSYCH: Normal affect. Const Vital Signs: 02/21/22 14:12 02/21/22 14:16 02/21/22 14:20 Temperature 97.8 F 97.9 F Temperature Source Temporal Temporal Pulse Rate 65 63 Respiratory Rate 15 17 Respiratory Effort Short of Breath Respiratory Depth Shallow Respiratory Pattern Normal Blood Pressure 193/85 H Blood Pressure Mean 121 Pulse Ox 97 97 Oxygen Delivery Method Room Air Room Air <Dr. Barrington Espinoza DO - Last Filed: 02/21/22 22:05> Physical Exam Const Vital Signs: 02/21/22 14:12 02/21/22 14:16 02/21/22 14:20 Temperature 97.8 F 97.9 F Temperature Source Temporal Temporal Pulse Rate 65 63 Respiratory Rate 15 17 Respiratory Effort Short of Breath Respiratory Depth Shallow Respiratory Pattern Normal Blood Pressure 193/85 H Blood Pressure Mean 121 Pulse Ox 97 97 Oxygen Delivery Method Room Air Room Air MDM <ZOHRA Cheek - Last Filed: 02/21/22 16:14> [facility] Lab Data Labs: Laboratory Results - last 24 hr 02/21/22 02/21/22 02/21/22 14:20 14:25 14:25 WBC 9.4 RBC 2.58 L Hgb 7.7 L Hct 23.7 L MCV 91.9 MCH 29.8 MCHC 32.5 RDW Std Deviation 62.1 H RDW Coeff of Jenna 18.7 H Plt Count 271 MPV 10.6 Immature Gran % (Auto) 0.600 Neut % (Auto) 80.8 H Lymph % (Auto) 12.3 L [place] % (Auto) 5.8 Eos % (Auto) 0.4 Baso % (Auto) 0.1 Absolute Neuts (auto) 7.6 Absolute Lymphs (auto) 1.15 Nucleated RBC % 0 Sodium 141 Potassium 4.2 Chloride 114 H Carbon Dioxide 22.0 Anion Gap 5 BUN 77 H Creatinine 1.83 H Estim Creat Clear Calc 21.98 Est GFR (MDRD) Af Amer 35 L Est GFR (MDRD) Non-Af 29 L BUN/Creatinine Ratio 42.1 H Glucose 43 L* Calcium 8.2 L Troponin I High Sens 39 B-Natriuretic Peptide Urine Color Urine Clarity Urine pH Ur Specific [place] Urine Protein Urine Glucose (UA) Urine Ketones Urine Occult Blood Urine Nitrite Urine Bilirubin Urine Urobilinogen Ur Leukocyte Esterase Urine RBC Urine WBC Ur Squamous Epith Cells Urine Bacteria Urine Mucus POC Glucose 46 L 02/21/22 02/21/22 02/21/22 14:25 14:37 14:51 WBC RBC Hgb Hct MCV MCH MCHC RDW Std Deviation RDW Coeff of Jenna Plt Count MPV Immature Gran % (Auto) Neut % (Auto) Lymph % (Auto) [place] % (Auto) Eos % (Auto) Baso % (Auto) Absolute Neuts (auto) Absolute Lymphs (auto) Nucleated RBC % Sodium Potassium Chloride Carbon Dioxide Anion Gap BUN Creatinine Estim Creat Clear Calc Est GFR (MDRD) Af Amer Est GFR (MDRD) Non-Af BUN/Creatinine Ratio Glucose Calcium Troponin I High Sens B-Natriuretic Peptide 583.7 H Urine Color Yellow Urine Clarity Clear Urine pH 7.0 Ur Specific [place] 1.010 Urine Protein 100 H Urine Glucose (UA) Normal Urine Ketones Negative Urine Occult Blood 10 H Urine Nitrite Negative Urine Bilirubin Negative Urine Urobilinogen Normal Ur Leukocyte Esterase 100 H Urine RBC 0 SEEN Urine WBC 0-5 SEEN Ur Squamous Epith Cells 0 SEEN Urine Bacteria 2+ Urine Mucus 0 SEEN POC Glucose 134 H Radiography Chest X-Ray - ED: 1 View, Read by ED Physician, Normal, Heart, Lungs, Mediastinum, Bony Structures and No Acute Disease Diagnostic Testing: Clinical Impression(s) from Imaging Studies Brain CT 02/21/22 14:14 IMPRESSION: 1. No acute hemorrhage. 2. No territorial infarction. 3. Right internal capsule/lee radiata posterior white matter ischemia, unknown age, possibly nonacute. 4. Severe intracranial large vessel atherosclerosis. Electronically Signed: Maylin Power MD at 15:52 EDT , Chest X-Ray 02/21/22 14:14 IMPRESSION: Possible right upper lobe pneumonia. Low pulmonary volumes. Electronically Signed: Maylin oPwer MD at 15:54 EDT , EKG Initial EKG: Attestation: I personally reviewed and interpreted this EKG as follows: Interpretation: Sinus Rhythm Comments: Normal sinus rhythm, normal intervals, no acute ischemia, 61 bpm Treatment and Re-Evaluation Narrative: Patient had slurred speech this morning and family was concern for stroke. Upon arrival she was awake and alert to self only. She did seem slightly drowsy. She was able to move her right side and has chronic left-sided hemiparesis. There was no focal deficits. Blood glucose was found to be 46 and after administration of D10 her mentation did significantly improve. After her daughter arrived she states she is back to baseline. Labs reveal hemoglobin of 7.7. It was 10.7 on 12/24/2021. Digital rectal exam was performed and shows medium brown stool and is Hemoccult positive. The rest of her labs are unr emarkable. Glucose is improving to the 140s. Radiology read chest x-ray is possible right upper lobe pneumonia. However clinically her lung sounds are clear and she has a normal white count and no cough so I have no concern for pneumonia. CT brain noted right internal capsule/lee radiata posterior white matter ischemia of unknown age. Her strokelike symptoms resolved after treatment of hypoglycemia so I do not think there is any acute intracranial cause. With new GI bleed and labile blood sugars patient will need admitted. I discussed the case with Dr. Vazquez and he will follow on the floor if needed. Case discussed with the hospitalist and she was admitted in stable condition. Diagnoses 1. Speech disturbance 2. Hypoglycemia 3. History of type 2 diabetes 4. Acute on chronic anemia 5. GI bleed 6. Right internal capsule white matter ischemia, unknown age <Dr. Barrington Espinoza, DO - Last Filed: 02/21/22 22:05> [facility] MDM Narrative Medical decision making narrative: Patient seen in conjunction with physician assistant corporate secretary for possible strokelike symptoms however the patient was found to be hypoglycemic and given D10 and her symptoms improved. No new focal neurologic deficits or lateralizing signs or symptoms. CBC does not show leukocytosis but does show acute drop in her hemoglobin to 7.7. She is Hemoccult positive. Since she does have history of stroke we did obtain a CT brain which does show a area of ischemia in the lee radiata of unknown duration. Chest x-ray interpreted by myself shows no acute pathology. The radiologist to speculate about possible right upper lobe pneumonia however patient has no respiratory complaints. She is 98% on room air. She has no leukocytosis EKG stable without signs of ischemic change or dysrhythmia. Clinically I think that her low blood sugar caused her symptoms. However she does need to be admitted for GI bleed. She will need to be monitored. Lab Data Attestation: I reviewed the patient's lab results. Labs: Laboratory Results - last 24 hr 02/21/22 02/21/22 02/21/22 14:20 14:25 14:25 WBC 9.4 RBC 2.58 L Hgb 7.7 L Hct 23.7 L MCV 91.9 MCH 29.8 MCHC 32.5 RDW Std Deviation 62.1 H RDW Coeff of Jenna 18.7 H Plt Count 271 MPV 10.6 Immature Gran % (Auto) 0.600 Neut % (Auto) 80.8 H Lymph % (Auto) 12.3 L [place] % (Auto) 5.8 Eos % (Auto) 0.4 Baso % (Auto) 0.1 Absolute Neuts (auto) 7.6 Absolute Lymphs (auto) 1.15 Nucleated RBC % 0 Sodium 141 Potassium 4.2 Chloride 114 H Carbon Dioxide 22.0 Anion Gap 5 BUN 77 H Creatinine 1.83 H Estim Creat Clear Calc 21.98 Est GFR (MDRD) Af Amer 35 L Est GFR (MDRD) Non-Af 29 L BUN/Creatinine Ratio 42.1 H Glucose 43 L* Calcium 8.2 L Troponin I High Sens 39 B-Natriuretic Peptide Urine Color Urine Clarity Urine pH Ur Specific [place] Urine Protein Urine Glucose (UA) Urine Ketones Urine Occult Blood Urine Nitrite Urine Bilirubin Urine Urobilinogen Ur Leukocyte Esterase Urine RBC Urine WBC Ur Squamous Epith Cells Urine Bacteria Urine Mucus POC Glucose 46 L 02/21/22 02/21/22 02/21/22 14:25 14:37 14:51 WBC RBC Hgb Hct MCV MCH MCHC RDW Std Deviation RDW Coeff of Jenna Plt Count MPV Immature Gran % (Auto) Neut % (Auto) Lymph % (Auto) [place] % (Auto) Eos % (Auto) Baso % (Auto) Absolute Neuts (auto) Absolute Lymphs (auto) Nucleated RBC % Sodium Potassium Chloride Carbon Dioxide Anion Gap BUN Creatinine Estim Creat Clear Calc Est GFR (MDRD) Af Amer Est GFR (MDRD) Non-Af BUN/Creatinine Ratio Glucose Calcium Troponin I High Sens B-Natriuretic Peptide 583.7 H Urine Color Yellow Urine Clarity Clear Urine pH 7.0 Ur Specific [place] 1.010 Urine Protein 100 H Urine Glucose (UA) Normal Urine Ketones Negative Urine Occult Blood 10 H Urine Nitrite Negative Urine Bilirubin Negative Urine Urobilinogen Normal Ur Leukocyte Esterase 100 H Urine RBC 0 SEEN Urine WBC 0-5 SEEN Ur Squamous Epith Cells 0 SEEN Urine Bacteria 2+ Urine Mucus 0 SEEN POC Glucose 134 H Radiography Diagnostic Testing: Clinical Impression(s) from Imaging Studies Brain CT 02/21/22 14:14 IMPRESSION: 1. No acute hemorrhage. 2. No territorial infarction. 3. Right internal capsule/lee radiata posterior white matter ischemia, unknown age, possibly nonacute. 4. Severe intracranial large vessel atherosclerosis. Electronically Signed: Maylin Power MD at 15:52 EDT , Chest X-Ray 02/21/22 14:14 IMPRESSION: Possible right upper lobe pneumonia. Low pulmonary volumes. Electronically Signed: Maylin Power MD at 15:54 EDT , Discharge Plan Disposition Disposition: Acute Care Hospital [facility] Discharge Date/Time: 02/21/22 16:40
[2022-02-21 14:35] LABS: Absolute Lymphocyte Count 1.15 X10^3/uL (0.83-4.51); Absolute Neutrophil Count 7.6 X10^3/uL (2.0-7.7); Basophil# 0.01 X10^3/uL; Basophil% 0.1 % (0-1); Eosinophil# 0.04 X10^3/uL; Eosinophils% 0.4 % (0-5); Hematocrit 23.7 % (37-47); Hemoglobin 7.7 g/dL (12.0-15.0); Lymphocyte # 1.15 X10^3/ul (0.83-4.51); Lymphocyte % 12.3 % (19-41); Mean Corp Hgb Conc 32.5 g/dL (32-36); Mean Corpuscular Hgb 29.8 pg (27.0-32.0); Mean Corpuscular Volume 91.9 fL (81-99); Mean Platelet Vol. 10.6 fl (6.2-12.0); Monocyte# 0.54 X10^3/uL; Monocyte% 5.8 % (0-10); NRBC Flagged by Analyzer 0 % (0-5); Neutrophil # 7.55 X10^3/uL (2.7-7.7); Neutrophil % 80.8 % (47-70); Platelet Count 271 K/mm3 (150-450); RBC Distribution Width CV 18.7 % (11.6-14.6); RBC Distribution Width SD 62.1 fl (35.1-43.9); Red Blood Count 2.58 M/mm3 (4.2-5.4); White Blood Count 9.4 K/mm3 (4.4-11.0)
[2022-02-21] MEDS: Dextrose 10%-Water 250 ML 999 ML IV (14:35)
[2022-02-21 14:46] LABS: Mucous, Urine 0 SEEN /hpf (<or=2+); Red Blood Cells-Urine 0 SEEN /hpf (0-5); Squamous Epithelial Cells - UA 0 SEEN /hpf (5-10)
[2022-02-21 14:47] LABS: Color, Urine Yellow (Yellow); Glucose, Dipstick Normal (Normal); Ketone-Dipstick Negative (Negative); Leukocyte Esterase-Dipstick 100 /ul (Negative); Nitrite-Dipstick Negative (Negative); Occult Blood-Urine 10 /ul (Negative); Protein-Dipstick 100 mg/dl (Negative); Urine Bilirubin Dipstick Negative (Negative); Urine Clarity Clear (Clear); Urine Urobilinogen Normal (Normal)
[2022-02-21 14:55] LABS: Bacteria 2+ /hpf (None Seen); White Blood Cells 0-5 SEEN /hpf (0-5)
[2022-02-21 14:56] LABS: Bedside Glucose 46 mg/dL (74-106)
[2022-02-21 14:56] LABS: Bedside Glucose 134 mg/dL (74-106)
[2022-02-21 15:23] LABS: Anion Gap 5 (5-15); BNP,B-Type NATRIURETIC PEPTIDE 583.7 pg/mL (0-100); BUN 77 mg/dL (7-18); BUN/Creat Ratio 42.1 RATIO (10-20); Calcium,Total 8.2 mg/dL (8.5-10.1); Chloride 114 mmol/L (98-107); Creatinine, Serum 1.83 mg/dL (0.55-1.02); EST Glomerular Filtration Rate 29 mL/min (>60); Est Glom Filt Rate - Afr Amer 35 mL/min (>60); Estimated Creatinine Clearance 21.98 ml/min; Glucose 43 mg/dL (74-106); Potassium 4.2 mmol/L (3.5-5.1); Sodium Level 141 mmol/L (136-145); Troponin-I HS 39 pg/mL (3.0-54.0)
--- NOTE | 2022-02-21 15:58 | NURSING ---
DR JOSE ENRIQUE GALAN
--- NOTE | 2022-02-21 16:06 | NURSING ---
PCU GI BLEED JOSE ENRIQUE
--- NOTE | 2022-02-21 16:50 | HP.PCM.HOS_ITS ---
Documented by User: Jonh العلي 02/21/22 17:11 HPI - General General Date of Admission: 02/21/22 Date of Service: 02/21/22 Chief Complaint: Slurred speech HPI Narrative EBONIE WOLF is a 72-year-old female who presents to [facility] on 02/21/2022 with a chief complaint of slurred speech. Patient is without any specific complaints, but family reports that they brought her admitted over concerns of slurred speech. Patient and family deny any headache, vision changes, altered mental status or focal neurological deficits. Patient does have chronic left arm weakness due to prior strokes. Brain CT did not demonstrate any evidence of acute intracranial hemorrhage or infarction. Blood sugars were low in the ED at 43. Patient endorses not eating this morning as she reported that she did not feel hungry. Patient's past medical history significant for DM 2 for which he takes 40 units of Lantus daily. Patient's hemoglobin was low at 7.7. Patient denies any hematochezia or hematemesis, but does report that her stool has been dark brown. Stool obtained in the ED was guaiac positive. [facility] Medical History Cellulitis of left lower limb Chest pain Chronic headaches Chronic ulcer of left foot with necrosis of muscle Current use of insulin Depression Diabetic foot infection Diabetic nephropathy Difficulty chewing Difficulty swallowing DM (diabetes mellitus), type 2, uncontrolled DVT (deep venous thrombosis) Dyspnea High cholesterol History of stress test Irregular heartbeat Left foot infection Malnutrition Myocardial infarction Paralysis Peripheral vascular disease Post-menopausal Renal disease Restless legs Sleep apnea Status post amputation of toe of left foot Stroke Thyroiditis Type 2 diabetes mellitus with diabetic foot infection Ulcer Ulcer of left foot due to type 2 diabetes mellitus Home Medications amlodipine 10 mg PO DAILY 08/07/21 [History Last Taken Unknown] aspirin 81 mg PO DAILY 08/07/21 [History Last Taken Unknown] levothyroxine 125 mcg PO DAILY@0600 08/07/21 [History Last Taken Unknown] metoprolol tartrate 50 mg PO BID 08/07/21 [History Last Taken Unknown] pantoprazole 40 mg PO DAILY 08/07/21 [History Last Taken Unknown] atorvastatin 80 mg PO QHS 08/12/21 [History Last Taken Unknown] clopidogrel 75 mg PO DAILY 08/12/21 [History Last Taken Unknown] polyethylene glycol 3350 17 g PO DAILY 08/12/21 [History Last Taken Unknown] acetaminophen 1,000 mg PO Q6H PRN PRN #0 tab 08/29/21 [Rx Last Taken Unknown] bisacodyl 10 mg PO DAILY PRN #0 tab 08/29/21 [Rx Last Taken Unknown] oxycodone 5 mg PO Q4H PRN PRN 3 Days #18 tab 08/29/21 [Rx Last Taken Unknown] [id number] [Vlad (with collagen)] 1 packet PO BIDCM 02/21/22 [History Last Taken Unknown] citalopram 10 mg PO DAILY 02/21/22 [History Last Taken Unknown] insulin glargine [Lantus Solostar U-100 Insulin] 40 unit SUBCUT QPM 02/21/22 [History Last Taken Unknown] menthol-zinc oxide [Calmoseptine] 1 applic TOPICAL BID 02/21/22 [History Last Taken Unknown] metformin 500 mg PO BID 02/21/22 [History Last Taken Unknown] nystatin [Nyamyc] 1 applic TOPICAL BID 02/21/22 [History Last Taken Unknown] prednisone 40 mg PO DAILY 02/21/22 [History Last Taken Unknown] Allergy/AdvReac Type Severity Reaction Status Date / Time baclofen AdvReac Other Verified 01/07/22 11:24 Family History Mother CVA (cerebral vascular accident) Other Diabetes Heart disease Surgical History History of heart artery stent S/P tubal ligation Status post arterial stent Status post coronary artery bypass graft Status post coronary artery stent placement Status post hysterectomy Status post transmetatarsal amputation of left foot Social History household members: children Smoking Status: Never smoker ROS Constitutional Constitutional: Denies anorexia, change in weight, chills, fatigue, fever(s), malaise, night sweats, weakness or other Eyes Eyes: Denies blurry vision, change in eye color, change in vision, discharge from eye(s), double vision, erythema, eye pain, loss of vision or other ENT HEENT: Denies abnormal hearing, dysphagia, ear pain, epistaxis, headache(s), hearing loss, nasal congestion, nasal discharge, post nasal drip, sinus pressure, sore throat or other Cardiovascular Cardiovascular: Denies chest pain, claudication, dyspnea on exertion, edema, lightheadedness, orthopnea, palpitations, paroxysmal nocturnal dyspnea, rapid heart rate, syncope or other Respiratory/Chest Respiratory/Chest: Denies cough, dyspnea, excessive phlegm production, hemoptysis, productive cough, shortness of breath at rest, shortness of breath with exertion, wheezing or other Gastrointestinal Gastrointestinal: Denies abdominal pain, coffee ground emesis, constipation, diarrhea, dyspepsia, hematemesis, hematochezia, loose stools, melena, nausea, vomiting or other Genitourinary Genitourinary: Denies burning urination, difficulty urinating, dysuria, hematuria, nocturia, urinary frequency, urinary hesitancy, urinary incontinence, urinary urgency or other Musculoskeletal Musculoskeletal: Denies arthralgias, back pain, joint pain, joint stiffness, joint swelling, myalgias, neck pain or other Neurologic Neurologic: Reports abnormal speech; Denies abnormal gait, confusion, disequilibrium, dizziness, focal weakness, headache(s), numbness, paresthesias, seizure-like activity, seizures, syncope, tingling, tremor(s) or other Psychiatric Psychiatric: Denies anxiety, depression, homicidal ideation, suicidal ideation or other Endocrine Endocrinology: Denies change in body appearance, cold intolerance, excessive sweating, heat intolerance, polydipsia, polyuria or other Hematologic/Lymphatic Hematologic/Lymphatic: Denies anemia, easy bleeding, easy bruising, lymphadenopathy or other Allergic/Immunologic Allergic/Immunologic: Denies rhinitis, hives, eczemia, asthma or other Vital Signs Vital Signs Vital Signs: 02/21/22 14:12 02/21/22 14:16 02/21/22 14:20 Temperature 97.8 F 97.9 F Temperature Source Temporal Temporal Pulse Rate 65 63 Respiratory Rate 15 17 Respiratory Effort Short of Breath Respiratory Depth Shallow Respiratory Pattern Normal Blood Pressure 193/85 H Blood Pressure Mean 121 Pulse Ox 97 97 Oxygen Delivery Method Room Air Room Air 02/21/22 16:06 02/21/22 16:26 Temperature 97.8 F Temperature Source Temporal Pulse Rate 60 59 L Respiratory Rate 15 15 Respiratory Effort Respiratory Depth Respiratory Pattern Blood Pressure 193/69 H 177/64 H Blood Pressure Mean 110 101 Pulse Ox 99 100 Oxygen Delivery Method Room Air Room Air Weight Weight: 228 lb 6.382 oz Body Mass Index (BMI) 41.8 Physical Exam Const alert and oriented x3 General Appearance: cooperative HEENT normocephalic, head/scalp atraumatic and hearing grossly normal bilaterally Eyes PERRL, EOMs intact bilaterally and conjunctivae normal Neck no lymphadenopathy, supple and no JVD Resp normal respiratory effort, no retractions and no use of accessory muscles Cardio regular rate, regular rhythm and no JVD GI normal to inspection, nondistended, normoactive bowel sounds Extremity Extremity Narrative: Transmetatarsal amputation of the left lower extremity. Psoriatic lesions about the left upper extremity. Skin Skin Narrative: Diffuse psoriatic lesions on the left upper extremity as well as across the chest. Neuro CN's II-XII intact bilaterally Psych affect normal Results Lab / Micro Data Result Diagrams: 02/21/22 14:25 02/21/22 14:25 Labs: Laboratory Results - last 24 hr 02/21/22 14:20: POC Glucose 46 L 02/21/22 14:25: WBC 9.4, RBC 2.58 L, Hgb 7.7 L, Hct 23.7 L, MCV 91.9, MCH 29.8, MCHC 32.5, RDW Std Deviation 62.1 H, RDW Coeff of Jenna 18.7 H, Plt Count 271, MPV 10.6, Immature Gran % (Auto) 0.600, Neut % (Auto) 80.8 H, Lymph % (Auto) 12.3 L, Lipscomb % (Auto) 5.8, Eos % (Auto) 0.4, Baso % (Auto) 0.1, Absolute Neuts (auto) 7.6, Absolute Lymphs (auto) 1.15, Nucleated RBC % 0 02/21/22 14:25: Sodium 141, Potassium 4.2, Chloride 114 H, Carbon Dioxide 22.0, Anion Gap 5, BUN 77 H, Creatinine 1.83 H, Estim Creat Clear Calc 21.98, Est GFR (MDRD) Af Amer 35 L, Est GFR (MDRD) Non-Af 29 L, BUN/Creatinine Ratio 42.1 H, Glucose 43 L*, Calcium 8.2 L, Troponin I High Sens 39 02/21/22 14:25: B-Natriuretic Peptide 583.7 H 02/21/22 14:37: Urine Color Yellow, Urine Clarity Clear, Urine pH 7.0, Ur Specific [place] 1.010, Urine Protein 100 H, Urine Glucose (UA) Normal, Urine Ketones Negative, Urine Occult Blood 10 H, Urine Nitrite Negative, Urine Bilirubin Negative, Urine Urobilinogen Normal, Ur Leukocyte Esterase 100 H, Urine RBC 0 SEEN, Urine WBC 0-5 SEEN, Ur Squamous Epith Cells 0 SEEN, Urine Bacteria 2+, Urine Mucus 0 SEEN 02/21/22 14:51: POC Glucose 134 H 02/21/22 16:12: Blood Type Cancelled, Antibody Screen Cancelled, Crossmatch See Detail 02/21/22 16:30: Blood Type Cancelled, Antibody Screen Cancelled, Crossmatch See Detail Micro: Microbiology 02/21/22 15:25 Stool Stool Occult Blood (YELENA) - Final Occult Blood Positive Radiology Impression Brain CT 02/21/22 14:14 IMPRESSION: 1. No acute hemorrhage. 2. No territorial infarction. 3. Right internal capsule/lee radiata posterior white matter ischemia, unknown age, possibly nonacute. 4. Severe intracranial large vessel atherosclerosis. Electronically Signed: Maylin Power MD at 15:52 EDT , Chest X-Ray 02/21/22 14:14 IMPRESSION: Possible right upper lobe pneumonia. Low pulmonary volumes. Electronically Signed: Maylin Power MD at 15:54 EDT , Assessment & Plan Assessment/Plan (1) Hypoglycemia associated with diabetes: (2) Anemia: PLAN: Patient is a 72-year-old female who presents to the ED at [facility] on 02/21/2022 with a chief complaint of slurred speech. Patient will be admitted for evaluation and management of hyperglycemia as well as anemia due to suspected GI bleed. 1) hypoglycemia in the setting of DM 2 Blood sugars were 43 on presentation to the ED. Patient reports not having any meals prior to admission to the ED due to not feeling hungry. Patient does have some slurred speech but does not demonstrate any other focal neurological deficits and is without altered mental status. Past medical history significant for DM 2, for which patient takes 40 units of Lantus daily. Plan; admit to PCU, continue D10 infusion started in the ED, then transfer to D5, hold home insulin regimen, Accu-Cheks every 6 hours with signs counseling ordered, CBC and CMP in a.m., brain MRI ordered to rule out stroke given slurred speech. 2) suspected GI bleed Hemoglobin was 7.7 on presentation in the ED, baseline appears around 9. Patient denies any hematemesis or hematochezia, but does report that her stools have been dark brown. Plan; initiate IV PPI, GI consult ordered, will continue to monitor, serial H&H's ordered, will type and cross, will transfuse if hemoglobin falls below 7. 3) HTN Continue amlodipine and metoprolol. 4) prior history of stroke Hold aspirin and Plavix given #2, continue statin. 5) depression/anxiety Continue citalopram. 6) unspecified autoimmune disorder Patient with diffuse psoriatic lesions on the left arm and chest, follows with a pilling machine operator although unsure which one. Continue prednisone. 7) CAD status post CABG and x4 stent Hold aspirin and Plavix as above, continue metoprolol and Lipitor. 8) status post transmetatarsal amputation of the left foot Follows with Dr. Schmitz. Family reports that wound is healing well. DVT prophylaxis -SCDs Patient seen by Jonh Etienne PA-C, under the supervision of Dr. Luciano. Time spent on patient care: 25 minutes. Documented by User: Dr. Alanna Luciano MD 02/21/22 17:27 HPI - General General Date of Admission: 02/21/22 [facility] Medical History Cellulitis of left lower limb Chest pain Chronic headaches Chronic ulcer of left foot with necrosis of muscle Current use of insulin Depression Diabetic foot infection Diabetic nephropathy Difficulty chewing Difficulty swallowing DM (diabetes mellitus), type 2, uncontrolled DVT (deep venous thrombosis) Dyspnea High cholesterol History of stress test Irregular heartbeat Left foot infection Malnutrition Myocardial infarction Paralysis Peripheral vascular disease Post-menopausal Renal disease Restless legs Sleep apnea Status post amputation of toe of left foot Stroke Thyroiditis Type 2 diabetes mellitus with diabetic foot infection Ulcer Ulcer of left foot due to type 2 diabetes mellitus Home Medications amlodipine 10 mg PO DAILY 08/07/21 [History Last Taken Unknown] aspirin 81 mg PO DAILY 08/07/21 [History Last Taken Unknown] levothyroxine 125 mcg PO DAILY@0600 08/07/21 [History Last Taken Unknown] metoprolol tartrate 50 mg PO BID 08/07/21 [History Last Taken Unknown] pantoprazole 40 mg PO DAILY 08/07/21 [History Last Taken Unknown] atorvastatin 80 mg PO QHS 08/12/21 [History Last Taken Unknown] clopidogrel 75 mg PO DAILY 08/12/21 [History Last Taken Unknown] polyethylene glycol 3350 17 g PO DAILY 08/12/21 [History Last Taken Unknown] acetaminophen 1,000 mg PO Q6H PRN PRN #0 tab 08/29/21 [Rx Last Taken Unknown] bisacodyl 10 mg PO DAILY PRN #0 tab 08/29/21 [Rx Last Taken Unknown] oxycodone 5 mg PO Q4H PRN PRN 3 Days #18 tab 08/29/21 [Rx Last Taken Unknown] [id number]-fhyu-[id number]-[id number]-sd-lrs [Vlad (with collagen)] 1 packet PO BIDCM 02/21/22 [History Last Taken Unknown] citalopram 10 mg PO DAILY 02/21/22 [History Last Taken Unknown] insulin glargine [Lantus Solostar U-100 Insulin] 40 unit SUBCUT QPM 02/21/22 [History Last Taken Unknown] menthol-zinc oxide [Calmoseptine] 1 applic TOPICAL BID 02/21/22 [History Last Taken Unknown] metformin 500 mg PO BID 02/21/22 [History Last Taken Unknown] nystatin [Nyamyc] 1 applic TOPICAL BID 02/21/22 [History Last Taken Unknown] prednisone 40 mg PO DAILY 02/21/22 [History Last Taken Unknown] Allergy/AdvReac Type Severity Reaction Status Date / Time baclofen AdvReac Other Verified 01/07/22 11:24 Family History Mother CVA (cerebral vascular accident) Other Diabetes Heart disease Surgical History History of heart artery stent S/P tubal ligation Status post arterial stent Status post coronary artery bypass graft Status post coronary artery stent placement Status post hysterectomy Status post transmetatarsal amputation of left foot Social History household members: children Smoking Status: Never smoker Results Lab / Micro Data Result Diagrams: 02/21/22 14:25 02/21/22 14:25 Charges/Coding Addendum Addendum: This patient was seen in conjunction with ZOHRA Ewing. I have independently interviewed and examined the patient and reviewed pertinent historical, laboratory, and other data. Please refer to ZOHRA Ewing's note for his patient's presentation, findings, and recommendations. I have reviewed and his note and concur with his documentation 72-year-old female with past medical history of type II DM complicated by diabetic neuropathy, insulin-dependent, history of CVA with resultant left hemiplegia, status post left TMA for chronic osteomyelitis who comes in with complaints of altered mental status and slurred speech. Patient lives with her daughter, wheelchair-bound. She was with her granddaughter today when she was noticed to have slurred speech and altered mental status. Patient had taken her Lantus insulin last night but did not feel like eating this morning. She denied any recent illness or changes to her medications. She just admits to feeling tired. The EMS were called and a stroke alert was called. Her blood sugars in the ED were 48. This was treated with dextrose 10%. Patient's symptoms appear to all have resolved as of time of history taking Initial vitals in the ED showed blood pressure 193/85, heart rate 65, respiratory 15, SPO2 is 97% on room air, temperature 97.8F. WBC count is 9.4, hemoglobin is 7.7, down from 10.7, 2 months ago, platelet count is 271. CMP shows BUN of 77, creatinine 1.83, which is close to her baseline. Her BNP appears 583.7 Chest x-ray shows questionable right upper lobe opacity CT of the brain showed right internal capsule lee radiata posterior white matter ischemia, unknown age, possibly nonacute Physical Exam: Gen: Comfortable, not on oxygen, not pale, obese CVS:HS I +II, regular, 3/6 ejection systolic murmur RESP: Diminished at lung bases GI: BS present and normal, soft, nontender, no palpable organs EXT: Bilateral leg edema +1, +2 edema of the left upper extremity, left lower extremity TMA SKIN: Scaly, erythematous circular lesions, areas with areas of blanching, in various stages of healing CLOUD AUTOMATION TESTER: Alert oriented x3, power in the right upper extremity is 3/5 power in the l eft upper extremity is 2/5, power in bilateral extremities 4/5 ASSESSMENT: 1. Acute hypoglycemia 2. Abnormal CT concerning for possible stroke 3. Severe anemia likely secondary to acute GI bleed 4. CKD stage III 5. Hypertensive urgency 6. Probable pneumonia; doubt as patient has no fever, no leukocytosis Plan: Admit to PCU, hold insulin Accu-Cheks every 6 MRI brain H&H start and then every 6 IV PPI, hold aspirin Plavix for now, GI consult Continue home blood pressure medications Repeat chest x-ray in a.m. to confirm pneumonia Time spent all aspects coordinating patient's care, taking of history and physical examining patient discussing with nursing, discussing with ED physician: 45 minutes Visit Charges Inpatient E&M: 17913 Init Hosp L3
[2022-02-21 17:25] LABS: Hematocrit 21.9 % (37-47); Hemoglobin 7.1 g/dL (12.0-15.0)
--- NOTE | 2022-02-21 17:43 | NURSING ---
Daughter states Mother is scheduled to go to [place] next week.
[2022-02-21] MEDS: 0.9% Saline Lock 10 ML Syringe IV (17:53)
[2022-02-21] MEDS: Dextrose 5%/0.9% NaCl 1,000 ML 75 ML IV (17:53)
[2022-02-21] MEDS: Metoprolol Tartrate 50 MG Tablet PO (23:01)
[2022-02-21] MEDS: Atorvastatin Calcium 80 MG Tablet PO (23:01)
[2022-02-21 23:10] LABS: Bedside Glucose 77 mg/dL (74-106)
[2022-02-22] VITALS (18 sets, daily range): BP systolic 149–192; BP diastolic 69–88; PULSE 52–67; RESP 16–20; TEMP 36.4–37.3; O2SAT 97–100
[2022-02-22] MEDS: 0.9% Saline Lock 10 ML Syringe IV ×5 (00:11→23:35)
[2022-02-22 03:35] LABS: Bedside Glucose 67 mg/dL (74-106)
[2022-02-22 04:01] LABS: Bedside Glucose 79 mg/dL (74-106)
[2022-02-22 04:45] LABS: Absolute Lymphocyte Count 0.77 X10^3/uL (0.83-4.51); Eosinophil# 0.08 X10^3/uL; Eosinophils% 1.1 % (0-5); Hematocrit 28.1 % (37-47); Hemoglobin 9.6 g/dL (12.0-15.0); Lymphocyte # 0.77 X10^3/ul (0.83-4.51); Lymphocyte % 10.6 % (19-41); Mean Corp Hgb Conc 34.2 g/dL (32-36); Mean Corpuscular Hgb 30.8 pg (27.0-32.0); Mean Corpuscular Volume 90.1 fL (81-99); Mean Platelet Vol. 10.1 fl (6.2-12.0); Monocyte# 0.45 X10^3/uL; Monocyte% 6.2 % (0-10); NRBC Flagged by Analyzer 0 % (0-5); Neutrophil # 5.96 X10^3/uL (2.7-7.7); Neutrophil % 81.7 % (47-70); Platelet Count 158 K/mm3 (150-450); RBC Distribution Width CV 16.9 % (11.6-14.6); RBC Distribution Width SD 54.1 fl (35.1-43.9); Red Blood Count 3.12 M/mm3 (4.2-5.4); White Blood Count 7.3 K/mm3 (4.4-11.0)
[2022-02-22 05:05] LABS: ALB/GLOB Ratio 0.8 RATIO (0.9-2.4); AST(SGOT) 40 U/L (15-37); Alanine Aminotransfer ALT/SGPT 80 U/L (13-56); Albumin, Serum 2.1 g/dL (3.2-5.0); Alkaline Phosphatase 137 U/L (45-117); Anion Gap 7 (5-15); BUN 66 mg/dL (7-18); BUN/Creat Ratio 39.1 RATIO (10-20); Calcium,Total 7.3 mg/dL (8.5-10.1); Chloride 115 mmol/L (98-107); Creatinine, Serum 1.69 mg/dL (0.55-1.02); EST Glomerular Filtration Rate 32 mL/min (>60); Est Glom Filt Rate - Afr Amer 38 mL/min (>60); Globulin 2.6 g/dL (2.2-4.2); Glucose 83 mg/dL (74-106); Potassium 4.1 mmol/L (3.5-5.1); Protein, Total 4.7 g/dL (6.4-8.2); Sodium Level 142 mmol/L (136-145)
--- NOTE | 2022-02-22 05:40 | RAD_ITS ---
STUDY: X-RAY CHEST REASON FOR EXAM: Female, 72 years old. Abnormal CXR TECHNIQUE: Single AP portable view of the chest. COMPARISON: 02/21/2010 FINDINGS: Status post median sternotomy. The lungs are clear and expanded. There is no demonstrated pleural abnormality. There is moderate cardiac enlargement. Normal mediastinum and emma. Normal visualized pulmonary arteries. Normal visualized aortic arch and descending thoracic aorta. Normal visualized thoracic spine. Normal visualized ribs, clavicles, and shoulders. There is no demonstrated abnormality of the visualized soft tissue structures of the upper abdomen. RAD/Chest 1 View (Portable) IMPRESSION: No active disease. Electronically Signed: Ramirez Lincoln MD at 7:19 EDT ,
[2022-02-22] MEDS: Levothyroxine 125 MCG Tablet PO (06:39)
[2022-02-22 06:56] LABS: Bedside Glucose 64 mg/dL (74-106)
[2022-02-22 07:20] LABS: Bedside Glucose 68 mg/dL (74-106)
[2022-02-22] MEDS: Juven (unflavored) Packet 1 PACKET PO ×2 (08:22→17:09)
[2022-02-22] MEDS: predniSONE 20 MG Tablet 40 MG PO (08:22)
--- NOTE | 2022-02-22 09:00 | MRI_ITS ---
STUDY: MRI BRAIN WITHOUT CONTRAST REASON FOR EXAM: Female, 72 [address] scan of brain TECHNIQUE: Standardized multiplanar fat and water weighted pulse sequences were obtained. COMPARISON: CT 02/21/2022 FINDINGS: There is moderate cerebral atrophy with widening of the extra-axial spaces and ventricular dilatation. There are multiple white matter hyperintensities, distributed throughout the deep white matter tracts of the cerebral hemispheres, consistent with moderate chronic white matter ischemic changes. There is no evidence for recent intracranial ischemia or other cause of cytotoxic edema on diffusion weighted imaging (DWI). Normal T2* images of the brain without demonstrated susceptibility artifact. There is no demonstrated hemosiderin stain. Normal bilateral basal ganglia. Normal thalami. There is no extra-axial fluid accumulation. Normal flow voids within the major intracranial circulation suggesting patency by spin echo criteria. There is enlargement of the sella turcica with increased CSF within the sella and flattening of the pituitary gland consistent with an empty sellar syndrome. Normal infundibular stalk, hypothalamus, and optic chiasm. Normal tectal plate and pineal gland. There are chronic white matter ischemic changes of the loy. The midbrain and medulla are otherwise normal. Normal cerebellum. Normal basal cisterns. Normal bilateral temporal bones. Normal bilateral internal auditory canals. No demonstrated orbital abnormality, within the constraints of a routine brain study. Normal visualized paranasal sinuses. Normal calvarium and skull base. Normal visualized soft tissue structures. Normal visualized upper cervical spine. MRI/Brain without Contrast IMPRESSION: Involutional changes of the brain, as described above. No acute infarct. Electronically Signed: Ramirez Lincoln MD at 12:37 EDT ,
[2022-02-22] MEDS: amLODIPine 10 MG Tablet PO (09:02)
[2022-02-22] MEDS: Citalopram 10 MG Tablet PO (09:02)
[2022-02-22] MEDS: Metoprolol Tartrate 50 MG Tablet PO ×2 (09:02→22:02)
[2022-02-22] MEDS: Polyethylene Glycol 3350 17 GM PACKET PO (09:03)
--- NOTE | 2022-02-22 11:08 | PN.HOSP_ITS ---
Documented by User: Jonh العلي 02/22/22 11:17 Subjective Subjective Patient is a 72-year-old female comfortably resting in bed, alert and orient x3. Patient denies development of any new symptoms overnight. Does not appear in acute distress. Objective Data Objective Data Vital Signs: Vital Signs Temp Pulse Resp BP Pulse Ox 97.7 F L 56 L 18 149/73 H 100 02/22/22 05:20 02/22/22 09:02 02/22/22 05:20 02/22/22 05:20 02/22/22 05:20 Oxygen Delivery Method Room Air Weight: 229 lb 0.964 oz Body Mass Index (BMI) 41.8 Intake & Output: Intake and Output for Last 24 Hours 02/20/22 02/21/22 02/22/22 23:59 23:59 23:59 Intake Total 650 / 650 1331.25 / 1331.25 Output Total 350 / 350 Balance 300 / 300 1331.25 / 1331.25 Lab / Micro Data Result Diagrams: 02/22/22 04:34 02/22/22 04:34 Labs: Laboratory Results - last 24 hr 02/21/22 14:20: POC Glucose 46 L 02/21/22 14:25: WBC 9.4, RBC 2.58 L, Hgb 7.7 L, Hct 23.7 L, MCV 91.9, MCH 29.8, MCHC 32.5, RDW Std Deviation 62.1 H, RDW Coeff of Jenna 18.7 H, Plt Count 271, MPV 10.6, Immature Gran % (Auto) 0.600, Neut % (Auto) 80.8 H, Lymph % (Auto) 12.3 L, [place] % (Auto) 5.8, Eos % (Auto) 0.4, Baso % (Auto) 0.1, Absolute Neuts (auto) 7.6, Absolute Lymphs (auto) 1.15, Nucleated RBC % 0 02/21/22 14:25: Sodium 141, Potassium 4.2, Chloride 114 H, Carbon Dioxide 22.0, Anion Gap 5, BUN 77 H, Creatinine 1.83 H, Estim Creat Clear Calc 21.98, Est GFR (MDRD) Af Amer 35 L, Est GFR (MDRD) Non-Af 29 L, BUN/Creatinine Ratio 42.1 H, Glucose 43 L*, Calcium 8.2 L, Troponin I High Sens 39 02/21/22 14:25: B-Natriuretic Peptide 583.7 H 02/21/22 14:37: Urine Color Yellow, Urine Clarity Clear, Urine pH 7.0, Ur Specific [place] 1.010, Urine Protein 100 H, Urine Glucose (UA) Normal, Urine Ketones Negative, Urine Occult Blood 10 H, Urine Nitrite Negative, Urine Bilirubin Negative, Urine Urobilinogen Normal, Ur Leukocyte Esterase 100 H, Urine RBC 0 SEEN, Urine WBC 0-5 SEEN, Ur Squamous Epith Cells 0 SEEN, Urine Bacteria 2+, Urine Mucus 0 SEEN 02/21/22 14:51: POC Glucose 134 H 02/21/22 16:12: Blood Type Cancelled, Antibody Screen Cancelled, Crossmatch See Detail 02/21/22 16:30: Blood Type Cancelled, Antibody Screen Cancelled, Crossmatch See Detail 02/21/22 17:15: Blood Type AB POSITIVE, Antibody Screen NEGATIVE, Crossmatch See Detail 02/21/22 17:15: Hgb 7.1 L, Hct 21.9 L 02/21/22 22:59: POC Glucose 77 02/22/22 02:45: POC Glucose 67 L 02/22/22 03:42: POC Glucose 79 02/22/22 04:34: WBC 7.3, RBC 3.12 L, Hgb 9.6 L, Hct 28.1 L, MCV 90.1, MCH 30.8, MCHC 34.2 D, RDW Std Deviation 54.1 H, RDW Coeff of Jenna 16.9 H, Plt Count 158, MPV 10.1, Immature Gran % (Auto) 0.400, Neut % (Auto) 81.7 H, Lymph % (Auto) 10.6 L, [place] % (Auto) 6.2, Eos % (Auto) 1.1, Baso % (Auto) 0.0, Absolute Neuts (auto) 6.0, Absolute Lymphs (auto) 0.77 L, Nucleated RBC % 0 02/22/22 04:34: Sodium 142, Potassium 4.1, Chloride 115 H, Carbon Dioxide 20.0 L , Anion Gap 7, BUN 66 H, Creatinine 1.69 H, Estim Creat Clear Calc 23.80, Est GFR (MDRD) Af Amer 38 L, Est GFR (MDRD) Non-Af 32 L, BUN/Creatinine Ratio 39.1 H , Glucose 83, Calcium 7.3 L, Total Bilirubin 0.90, AST 40 H, ALT 80 H, Alkaline Phosphatase 137 H, Total Protein 4.7 L, Albumin 2.1 L, Globulin 2.6, Albumin/Globulin Ratio 0.8 L 02/22/22 06:42: POC Glucose 64 L 02/22/22 07:17: POC Glucose 68 L Micro: Microbiology 02/21/22 15:25 Stool Stool Occult Blood (YELENA) - Final Occult Blood Positive Radiography Diagnostic Testing: Radiology Impression Brain CT 02/21/22 14:14 IMPRESSION: 1. No acute hemorrhage. 2. No territorial infarction. 3. Right internal capsule/lee radiata posterior white matter ischemia, unknown age, possibly nonacute. 4. Severe intracranial large vessel atherosclerosis. Electronically Signed: Maylin Power MD at 15:52 EDT , Chest X-Ray 02/21/22 14:14 IMPRESSION: Possible right upper lobe pneumonia. Low pulmonary volumes. Electronically Signed: Maylin Power MD at 15:54 EDT , Chest X-Ray 02/22/22 05:40 IMPRESSION: No active disease. Electronically Signed: Ramirez Lincoln MD at 7:19 EDT , Physical Exam Const alert, oriented x3 and no apparent distress HEENT head/scalp atraumatic and moist oral mucous membranes Head and Scalp: normocephalic Eyes PERRL and conjunctivae normal Neck no lymphadenopathy, supple and no JVD Resp normal respiratory effort, no retractions and no use of accessory muscles Cardio regular rate, regular rhythm and no JVD GI normal to inspection, nondistended, normoactive bowel sounds Extremity Extremity Narrative: S/P intact transmetatarsal amputation of the left foot. Skin Skin Narrative: Patient with diffuse psoriatic lesions on the left upper extre mity as well as across the chest Neuro CN's II-XII intact bilaterally Psych affect normal Assessment & Plan Assessment/Plan (1) Hypoglycemia associated with diabetes: (2) Anemia: PLAN: Day 1 Discharge planning: To be determined. 1) hypoglycemia in the setting of DM 2 Resolved, blood glucose currently 83. Brain MRI ordered to rule out a stroke given slurred speech, although patient does not complain of nor did she demonstrate any focal neurological deficits. Will discontinue dextrose infusions, continue Accu-Cheks with sliding scale, will titrate back to home insulin as necessary. 2) suspected GI bleed Hemoglobin currently 9.6 after transfusion of 2 units of PRBCs on 02/21. We will continue IV PPI, GI consult ordered we will continue to monitor H&H and will transfuse again if hemoglobin falls below 7. 3) HTN Continue amlodipine and metoprolol. 4) prior history of stroke Hold aspirin and Plavix given #2, continue statin. 5) depression/anxiety Continue citalopram. 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 Continue prednisone. 7) CAD status post CABG and x4 stent Hold aspirin and Plavix as above, continue metoprolol and Lipitor. 8) status post transmetatarsal amputation of the left foot Follows with Dr. Schmitz. Family reports that wound is healing well. DVT prophylaxis - SCDs Patient seen by Jonh Etienne PA-C, under the supervision of Dr. Luciano. Time spent on patient care: 9 minutes. Documented by User: Dr. Alanna Luciano MD 02/22/22 13:51 Objective Data Lab / Micro Data Result Diagrams: 02/22/22 04:34 02/22/22 04:34 Charges/Coding Addendum Addendum: This patient was seen in conjunction with ZOHRA Ewing. I have independently interviewed and examined the patient and reviewed pertinent historical, laboratory, and other data. Please refer to ZOHRA Ewing's note for his patient's presentation, findings, and recommendations. I have reviewed and his note and concur with his documentation Patient was seen and examined. She denied any new complaint. Hemoglobin dropped to 7.1 after admission. She was transfused 2 units of packed RBCs. No other acute events overnight. MRI of the brain shows no acute abnormality. Chest x-ray was negative for acute pneumonia Physical Exam: Gen: Comfortable, not on oxygen, not pale, obese CVS:HS I +II, regular, 3/6 ejection systolic murmur RESP: Diminished at lung bases GI: BS present and normal, soft, nontender, no palpable organs EXT: Bilateral leg edema +1, +2 edema of the left upper extremity, left lower extremity TMA SKIN: Scaly, erythematous circular lesions, areas with areas of blanching, in various stages of healing CLINICAL EDUCATION CONSULTANT: Alert oriented x3, power in the right upper extremity is 3/5 power in the left upper extremity is 2/5, power in bilateral extremities 4/5 ASSESSMENT: 1. Acute hypoglycemia, resolved 2. Abnormal CT, acute stroke ruled out 3. Severe anemia likely secondary to acute GI bleed, status post 2 units of packed RBC 4. CKD stage III 5. Hypertensive urgency, blood pressure better controlled 6. Acute pneumonia ruled out Plan: Calorie control, cardiac diet Accu-Cheks AC at bedtime Continue on IV PPI, continue to hold hold aspirin and Plavix Follow-up on GI consult Continue home blood pressure medications Time spent coordinating all aspects of patient's care, and discussing with n ursin minutes Visit Charges Inpatient E&M: 45972 Subs Hosp L2
[2022-02-22 12:46] LABS: Bedside Glucose 106 mg/dL (74-106)
--- NOTE | 2022-02-22 14:14 | CON.PCM.GI_ITS ---
HPI Consult Data Date of Consult: 02/22/22 HPI Narrative HPI Narrative: EBONIE WOLF, is a 72 F who presents with slurred speech and mild shortness of breath. She has a past medical history of hypertension, hyperlipidemia, type 2 diabetes, CAD, CKD, CVA with left-sided hemiplegia, left BKA. I was called to see her due to worsening acute on chronic anemia. She has been on prednisone for the last month since she had a rash on her left arm and her blood sugars have been very difficult to control. She has very poorly controlled diabetes at baseline. Her hemoglobin usually ranges from 10.5-11.5. It was 10.7 last month. When she came into the hospital it was 2.5 and over the course of her hospital stay history of to down to 7.1. She got transfused 2 units of packed red blood cells and it is up to 9.5. FORMERLY [facility] Medical History Cellulitis of left lower limb Chest pain Chronic headaches Chronic ulcer of left foot with necrosis of muscle Current use of insulin Depression Diabetic foot infection Diabetic nephropathy Difficulty chewing Difficulty swallowing DM (diabetes mellitus), type 2, uncontrolled DVT (deep venous thrombosis) Dyspnea High cholesterol History of stress test Irregular heartbeat Left foot infection Malnutrition Myocardial infarction Paralysis Peripheral vascular disease Post-menopausal Renal disease Restless legs Sleep apnea Status post amputation of toe of left foot Stroke Thyroiditis Type 2 diabetes mellitus with diabetic foot infection Ulcer Ulcer of left foot due to type 2 diabetes mellitus Home Medications amlodipine 10 mg PO DAILY 08/07/21 [History Last Taken Unknown] aspirin 81 mg PO DAILY 08/07/21 [History Last Taken Unknown] levothyroxine 125 mcg PO DAILY@0600 08/07/21 [History Last Taken Unknown] metoprolol tartrate 50 mg PO BID 08/07/21 [History Last Taken Unknown] pantoprazole 40 mg PO DAILY 08/07/21 [History Last Taken Unknown] atorvastatin 80 mg PO QHS 08/12/21 [History Last Taken Unknown] clopidogrel 75 mg PO DAILY 08/12/21 [History Last Taken Unknown] polyethylene glycol 3350 17 g PO DAILY 08/12/21 [History Last Taken Unknown] acetaminophen 1,000 mg PO Q6H PRN PRN #0 tab 08/29/21 [Rx Last Taken Unknown] bisacodyl 10 mg PO DAILY PRN #0 tab 08/29/21 [Rx Last Taken Unknown] oxycodone 5 mg PO Q4H PRN PRN 3 Days #18 tab 08/29/21 [Rx Last Taken Unknown] gneqy-dbml-CqUWK-rhyrba-mc-tvn [Vlad (with collagen)] 1 packet PO BIDCM 02/21/22 [History Last Taken Unknown] citalopram 10 mg PO DAILY 02/21/22 [History Last Taken Unknown] ferrous sulfate [Iron (ferrous sulfate)] 325 mg PO DAILY 02/21/22 [History Last Taken Unknown] insulin glargine [Lantus Solostar U-100 Insulin] 40 unit SUBCUT QPM 02/21/22 [History Last Taken Unknown] menthol-zinc oxide [Calmoseptine] 1 applic TOPICAL BID 02/21/22 [History Last Taken Unknown] nystatin [Nyamyc] 1 applic TOPICAL BID 02/21/22 [History Last Taken Unknown] prednisone 40 mg PO DAILY 02/21/22 [History Last Taken Unknown] Allergy/AdvReac Type Severity Reaction Status Date / Time baclofen AdvReac Other Verified 01/07/22 11:24 Family History Mother CVA (cerebral vascular accident) Other Diabetes Heart disease Surgical History History of heart artery stent S/P tubal ligation Status post arterial stent Status post coronary artery bypass graft Status post coronary artery stent placement Status post hysterectomy Status post transmetatarsal amputation of left foot Social History household members: children Smoking Status: Never smoker ROS Review of Systems ROS Unobtainable: other Constitutional Constitutional: Denies fatigue, fever(s), poor appetite, weight gain or weight loss ENT HEENT: Denies mouth lesions Cardiovascular Cardiovascular: Denies abdominal bloating, abdominal edema or abdominal pain Respiratory/Chest Respiratory/Chest: Denies change in mental status, change in phlegm color, chest congestion or chest tightness Gastrointestinal Gastrointestinal: Denies belching, bloating, change in bowel habits, change in stool character, chewing difficulty, coffee ground emesis, constipation, cramping, diarrhea, dyspepsia, dysphagia, early satiety, excessive flatus, fecal incontinence, heartburn, hematemesis, hematochezia, hemorrhoids, loose stools, melena, nausea, odynophagia, rectal bleeding, tenesmus, vomiting or weight ch anges Genitourinary Genitourinary: Denies abdominal discomfort, burning urination or itching Musculoskeletal Musculoskeletal: Reports as per HPI; Denies muscle weakness or myalgias Integumentary Integumentary: Denies jaundice Neurologic Neurologic: Denies lack of coordination or weakness Psychiatric Psychiatric: Denies confusion, depression, memory loss, mood swings, paranoia or suicidal ideation Endocrine Endocrinology: Denies systems reviewed and no addt'l complaints, except as documented Hematologic/Lymphatic Hematologic/Lymphatic: Denies anemia, easy bleeding, easy bruising or lymphadenopathy Allergic/Immunologic Allergic/Immunologic: Denies systems reviewed and no addt'l complaints, except as documented Physical Exam Const alert General Appearance: cooperative Orientation / Consciousness: oriented to person HEENT hearing grossly normal bilaterally Head and Scalp: normal to inspection Face and Sinus: face symmetric Nose: external nose normal Mouth: oral and palatal mucosa normal Eyes conjunctivae normal General Eye: normal appearance of both eyes Neck full ROM General: normal visual inspection Lymph Lymphatic: no lymphadenopathy noted Chest inspection of chest normal and palpation of chest normal Chest: symmetrical chest wall rise Resp normal respiratory effort Effort and Inspection: able to speak in complete sentences Cardio regular rate GI non-distended Percussion: normal to percussion Rectal Exam: deferred Extremity Extremity Narrative: Left BKA Neuro Speech: speech normal Lab / Micro Data Result Diagrams: 02/22/22 04:34 02/22/22 04:34 Labs: Laboratory Results - last 24 hr 02/21/22 14:20: POC Glucose 46 L 02/21/22 14:25: WBC 9.4, RBC 2.58 L, Hgb 7.7 L, Hct 23.7 L, MCV 91.9, MCH 29.8, MCHC 32.5, RDW Std Deviation 62.1 H, RDW Coeff of Jenna 18.7 H, Plt Count 271, MPV 10.6, Immature Gran % (Auto) 0.600, Neut % (Auto) 80.8 H, Lymph % (Auto) 12.3 L, [place] % (Auto) 5.8, Eos % (Auto) 0.4, Baso % (Auto) 0.1, Absolute Neuts (auto) 7.6, Absolute Lymphs (auto) 1.15, Nucleated RBC % 0 02/21/22 14:25: Sodium 141, Potassium 4.2, Chloride 114 H, Carbon Dioxide 22.0, Anion Gap 5, BUN 77 H, Creatinine 1.83 H, Estim Creat Clear Calc 21.98, Est GFR (MDRD) Af Amer 35 L, Est GFR (MDRD) Non-Af 29 L, BUN/Creatinine Ratio 42.1 H, Glucose 43 L*, Calcium 8.2 L, Troponin I High Sens 39 02/21/22 14:25: B-Natriuretic Peptide 583.7 H 02/21/22 14:37: Urine Color Yellow, Urine Clarity Clear, Urine pH 7.0, Ur Specific [place] 1.010, Urine Protein 100 H, Urine Glucose (UA) Normal, Urine Ketones Negative, Urine Occult Blood 10 H, Urine Nitrite Negative, Urine Bilirubin Negative, Urine Urobilinogen Normal, Ur Leukocyte Esterase 100 H, Urine RBC 0 SEEN, Urine WBC 0-5 SEEN, Ur Squamous Epith Cells 0 SEEN, Urine Bacteria 2+, Urine Mucus 0 SEEN 02/21/22 14:51: POC Glucose 134 H 02/21/22 16:12: Blood Type Cancelled, Antibody Screen Cancelled, Crossmatch See Detail 02/21/22 16:30: Blood Type Cancelled, Antibody Screen Cancelled, Crossmatch See Detail 02/21/22 17:15: Blood Type AB POSITIVE, Antibody Screen NEGATIVE, Crossmatch See Detail 02/21/22 17:15: Hgb 7.1 L, Hct 21.9 L 02/21/22 22:59: POC Glucose 77 02/22/22 02:45: POC Glucose 67 L 02/22/22 03:42: POC Glucose 79 02/22/22 04:34: WBC 7.3, RBC 3.12 L, Hgb 9.6 L, Hct 28.1 L, MCV 90.1, MCH 30.8, MCHC 34.2 D, RDW Std Deviation 54.1 H, RDW Coeff of Jenna 16.9 H, Plt Count 158, MPV 10.1, Immature Gran % (Auto) 0.400, Neut % (Auto) 81.7 H, Lymph % (Auto) 10.6 L, [place] % (Auto) 6.2, Eos % (Auto) 1.1, Baso % (Auto) 0.0, Absolute Neuts (auto) 6.0, Absolute Lymphs (auto) 0.77 L, Nucleated RBC % 0 02/22/22 04:34: Sodium 142, Potassium 4.1, Chloride 115 H, Carbon Dioxide 20.0 L , Anion Gap 7, BUN 66 H, Creatinine 1.69 H, Estim Creat Clear Calc 23.80, Est GFR (MDRD) Af Amer 38 L, Est GFR (MDRD) Non-Af 32 L, BUN/Creatinine Ratio 39.1 H , Glucose 83, Calcium 7.3 L, Total Bilirubin 0.90, AST 40 H, ALT 80 H, Alkaline Phosphatase 137 H, Total Protein 4.7 L, Albumin 2.1 L, Globulin 2.6, Alb umin/Globulin Ratio 0.8 L 02/22/22 06:42: POC Glucose 64 L 02/22/22 07:17: POC Glucose 68 L 02/22/22 12:36: POC Glucose 106 Micro: Microbiology 02/21/22 15:25 Stool Stool Occult Blood (YELENA) - Final Occult Blood Positive Radiology Impression Brain CT 02/21/22 14:14 IMPRESSION: 1. No acute hemorrhage. 2. No territorial infarction. 3. Right internal capsule/lee radiata posterior white matter ischemia, unknown age, possibly nonacute. 4. Severe intracranial large vessel atherosclerosis. Electronically Signed: Maylin Power MD at 15:52 EDT , Chest X-Ray 02/21/22 14:14 IMPRESSION: Possible right upper lobe pneumonia. Low pulmonary volumes. Electronically Signed: Maylin Power MD at 15:54 EDT , Chest X-Ray 02/22/22 05:40 IMPRESSION: No active disease. Electronically Signed: Ramirez Lincoln MD at 7:19 EDT , Brain MRI 02/22/22 09:00 IMPRESSION: Involutional changes of the brain, as described above. No acute infarct. Electronically Signed: Ramirez Lincoln MD at 12:37 EDT , Assessment & Plan Assessment/Plan (1) Anemia: PLAN: She has a normocytic anemia consistent with anemia chronic disease likely from CKD, chronic inflammatory disease secondary to history of osteomyelitis and diabetes. However I suspect that she had acute blood loss anemia secondary to prednisone therapy in the setting of poor wound healing. Recommendation is upper endoscopy to evaluate patient's upper GI tract. She was explained alternatives, risk, benefits including not withstanding bleeding, infection, sepsis, perforation, need for emergent surgery . Should have an ASA of 3. If that test is subsequently negative then she can have a colonoscopy and or capsule endoscopy as an outpatient. Charges/Coding Visit Charges Inpatient E&M: 22421 Init Hosp L2
[2022-02-22 16:06] LABS: Bedside Glucose 121 mg/dL (74-106)
[2022-02-22] MEDS: Atorvastatin Calcium 80 MG Tablet PO (22:03)
[2022-02-22 22:15] LABS: Bedside Glucose 202 mg/dL (74-106)
[2022-02-22] MEDS: Insulin Lispro 100 UNIT/ML INSULN.PEN SC (22:15)
[2022-02-22] MEDS: hydrALAZINE 20 MG/ML Vial 5 MG IV (23:35)
[2022-02-23] VITALS (17 sets, daily range): BP systolic 147–185; BP diastolic 55–77; PULSE 55–70; RESP 16–18; TEMP 36.8–37.1; O2SAT 96–100; BMI 40.6
--- NOTE | 2022-02-23 | ESO_PTH ---
PATIENT: EBONIE WOLF LOC: [facility] U#:[id number] AGE/SX: 72/F ROOM: [facility] RE02/21/[address]: Dr. Dalia Zhao MD : 1950 BED: 1 DIS: 02/24/2022 SPEC #: [id number] RECD: 02/23/22 13:06 STATUS: DARY REMelanie #: [id number] KRISTOPHER: 02/23/22 00:[address]: Tima Vazquez DEPT: SURGICAL PATHOLOGY RECD BY: Gabriel Marley ENTERED: 02/23/22 13:06 SP TYPE: ESOPH BX OTHR DR: MD Dr. Dalia Paul MD Dr. Tai Chi Kwok, MD Tissues: Esophagus, NOS Procedures: Special Stain Group I Surgery Specimen Level IV GMS Stain (control) Comments: @ Ordering doctor for SUIV edited from to @ by TERESITA at 02/23/22 1511 @ Submitting doctor edited from to @ by RGOOD at 02/23/22 1511 HEADER OPERATION: EGD with bipolar electro hemostasis and biopsy (MAC) PRE-OP DIAGNOSIS: Anemia TISSUE SUBMITTED: Biopsy proximal esophagus MICROSCOPIC DIAGNOSIS Proximal esophagus, biopsy: Fungal organisms consistent with almita species. See comment. AM:daniel 02/24/2022 COMMENT GMS stain with matched control was used in the evaluation of this case. MICROSCOPIC DESCRIPTION Slides are reviewed. GROSS DESCRIPTION Received in fixative is one container labeled with the patient's name and designated biopsy proximal esophagus. The specimen consists of multiple irregular fragments of light [place] soft tissue that in aggregate measure 1 x 0.3 x 0.1 cm. The specimen is totally submitted in one cassette. / SJ:daniel 02/23/2022 TC:5 CPT: 35558, 95901
--- NOTE | 2022-02-23 05:55 | EKG12_ITS ---
Test Reason : AM EKG Blood Pressure : / mmHG Vent. Rate : 065 BPM Atrial Rate : 065 BPM P-R Int : 156 ms QRS Dur : 076 ms QT Int : 414 ms P-R-T Axes : 040 -04 073 degrees QTc Int : 430 ms Normal sinus rhythm Poor R wave progression Confirmed by TORY NELSON, UCHE ([id number]), medical transcription editor GYPSY BASS ([id number]) on 02/23/2022 12:59:35 PM Referred By: DR QUISPE Confirmed By:UCHE SPEARS MD
[2022-02-23] MEDS: Levothyroxine 125 MCG Tablet PO (06:25)
[2022-02-23 06:28] LABS: Absolute Lymphocyte Count 0.43 X10^3/uL (0.83-4.51); Absolute Neutrophil Count 5.7 X10^3/uL (2.0-7.7); Hematocrit 25.9 % (37-47); Hemoglobin 8.8 g/dL (12.0-15.0); Lymphocyte # 0.43 X10^3/ul (0.83-4.51); Lymphocyte % 6.5 % (19-41); Mean Corpuscular Volume 88.4 fL (81-99); Mean Platelet Vol. 10.1 fl (6.2-12.0); Monocyte# 0.43 X10^3/uL; Monocyte% 6.5 % (0-10); NRBC Flagged by Analyzer 0 % (0-5); Neutrophil % 86.5 % (47-70); POSITIVE DIFFERENTIAL YES; Platelet Count 138 K/mm3 (150-450); RBC Distribution Width CV 16.8 % (11.6-14.6); RBC Distribution Width SD 53.8 fl (35.1-43.9); Red Blood Count 2.93 M/mm3 (4.2-5.4); White Blood Count 6.6 K/mm3 (4.4-11.0)
[2022-02-23 06:31] LABS: International Normalized Ratio 1.1; Prothrombin Time (Protime)PT. 13.4 SECONDS (11.7-14.9)
[2022-02-23 06:33] LABS: Partial Thromboplast Time 26.6 Seconds (24.1-36.2)
[2022-02-23 06:34] LABS: Differential Indicated SCAN CRITERIA MET
[2022-02-23 06:50] LABS: Bedside Glucose 209 mg/dL (74-106)
[2022-02-23 06:52] LABS: Differential Comment SCANNED
[2022-02-23 07:00] LABS: ALB/GLOB Ratio 0.8 RATIO (0.9-2.4); AST(SGOT) 25 U/L (15-37); Alanine Aminotransfer ALT/SGPT 63 U/L (13-56); Albumin, Serum 1.9 g/dL (3.2-5.0); Alkaline Phosphatase 141 U/L (45-117); Anion Gap 5 (5-15); BUN 67 mg/dL (7-18); BUN/Creat Ratio 41.1 RATIO (10-20); Calcium,Total 7.1 mg/dL (8.5-10.1); Chloride 114 mmol/L (98-107); Creatinine, Serum 1.63 mg/dL (0.55-1.02); EST Glomerular Filtration Rate 33 mL/min (>60); Est Glom Filt Rate - Afr Amer 40 mL/min (>60); Estimated Creatinine Clearance 24.67 ml/min; Globulin 2.3 g/dL (2.2-4.2); Glucose 215 mg/dL (74-106); Potassium 4.7 mmol/L (3.5-5.1); Protein, Total 4.2 g/dL (6.4-8.2); Sodium Level 140 mmol/L (136-145); Thyroid Stim Hormone (TSH) 0.09 uIU/mL (0.358-3.74)
--- NOTE | 2022-02-23 09:06 | CASEMGMT ---
SW noted in patient's chart that patient was supposed to go to [facility] this week. SW called Lori at [facility] and she confirmed they were working on getting patient into their facility. SW will send information to [facility] and talk with patient's daughter. Plan: d/c to [facility]. Anna ALDANA
[2022-02-23] MEDS: Citalopram 10 MG Tablet PO (09:42)
[2022-02-23] MEDS: amLODIPine 10 MG Tablet PO (09:42)
[2022-02-23] MEDS: predniSONE 20 MG Tablet 40 MG PO (09:42)
[2022-02-23] MEDS: Metoprolol Tartrate 50 MG Tablet PO ×2 (09:43→21:47)
[2022-02-23] MEDS: 0.9% Saline Lock 10 ML Syringe IV ×2 (09:44→21:50)
--- NOTE | 2022-02-23 09:50 | WOUNDNOTE ---
wound photo: left posterolateral lower leg
--- NOTE | 2022-02-23 09:51 | WOUNDNOTE ---
skin photo: healed wound left anterior ankle/dorsal foot
--- NOTE | 2022-02-23 12:05 | OP.EGD_ITS ---
Patient Name: Hayley Crawford Procedure Date: 02/23/2022 11:06 AM Date of : 1950 Age: 72 Procedure: Upper GI endoscopy Indications: Iron deficiency anemia Providers: Tima Vazquez DO Medicines: See the Anesthesia note for documentation of the administered medications Patient Profile: This is a 72 year old female. Refer to note in patient chart for documentation of history and physical. Patient has symptoms. Complications: No immediate complications. Procedure: Pre-Anesthesia Assessment: - Prior to the procedure, a History and Physical was performed, and patient medications and allergies were reviewed. The risks and benefits of the procedure and the sedation options and risks were discussed with the patient. All questions were answered and informed consent was obtained. Patient identification and proposed procedure were verified by the physician in the pre-procedure area. Mental Status Examination: alert and oriented. Airway Examination: normal oropharyngeal airway and neck mobility. Respiratory Examination: clear to auscultation. CV Examination: normal. Prophylactic Antibiotics: The patient does not require prophylactic antibiotics. Prior Anticoagulants: The patient has taken no previous anticoagulant or antiplatelet agents. After reviewing the risks and benefits, the patient was deemed in satisfactory condition to undergo the procedure. The anesthesia plan was to use moderate sedation / analgesia (conscious sedation). Immediately prior to administration of medications, the patient was re-assessed for adequacy to receive sedatives. The heart rate, respiratory rate, oxygen saturations, blood pressure, adequacy of pulmonary ventilation, and response to care were monitored throughout the procedure. The physical status of the patient was re-assessed after the procedure. After obtaining informed consent, the endoscope was passed under direct vision. Throughout the procedure, the patient's blood pressure, pulse, and oxygen saturations were monitored continuously. The gastroscope was introduced through the mouth, and advanced to the second part of duodenum. The upper GI endoscopy was accomplished without difficulty. The patient tolerated the procedure well. Moderate Sedation: Moderate (conscious) sedation was administered by the endoscopy nurse and supervised by the endoscopist. The patient's oxygen saturation, heart rate, blood pressure and response to care were monitored. Total physician intraservice time was 15 minutes. Scope In: 11:50:13 AM Scope Out: 11:59:11 AM Total Procedure Duration Time 0 hours 8 minutes 58 seconds Findings: Diffuse, yellow plaques were found in the entire esophagus. Biopsies were taken with a cold forceps for histology. Verification of patient identification for the specimen was done. Estimated blood loss was minimal. Two 4 mm bleeding angiodysplastic lesions were found on the lesser curvature of the stomach. Coagulation for hemostasis using monopolar probe was successful. Estimated blood loss was minimal. There was diffuse bowel wall edema seen in the stomach and the duodenum secondary to hypoalbuminemia. The second portion of the duodenum was normal. Impression: - Esophageal plaques were found, consistent with candidiasis. Biopsied. - Two bleeding angiodysplastic lesions in the stomach. Treated with a monopolar probe. - Normal second portion of the duodenum. Recommendation: - [facility] - Nystatin suspension 100,000 units PO QID for 10 weeks. - Continue present medications. Procedure Code(s): --- Professional --- 18373, 59, Esophagogastroduodenoscopy, flexible, transoral; with control of bleeding, any method 39033, Esophagogastroduodenoscopy, flexible, transoral; with biopsy, single or multiple G0500, Moderate sedation services provided by the same physician or other qualified health body care manager performing a gastrointestinal endoscopic service that sedation supports, requiring the presence of an independent trained observer to assist in the monitoring of the patient's level of consciousness and physiological status; initial 15 minutes of intra-service time; patient age 5 years or older (additional time may be reported with 96675, as appropriate) CPT copyright 2017 [employer] [place] [employer]. All rights reserved. The codes documented in this report are preliminary and upon clinical sciences professor review may be revised to meet current compliance requirements. Tima Vazquez DO 02/23/2022 12:04:50 PM This report has been signed electronically. Number of Addenda: 1 Note Initiated On: 02/23/2022 11:06 AM Addendum Number: 1 Addendum Date: 08/06/2022 6:33:51 AM MAC was used as sedation for this procedure. Tima Vazquez DO 08/06/2022 6:33:55 AM This report has been signed electronically.
--- NOTE | 2022-02-23 12:06 | OP.CCLET_ITS ---
08/06/2022 Elia Ceja MD [address] [place] [address] Re : Upper GI endoscopy procedure for Hayley Crawford Dear Dr. Ceja This procedure was performed on Wednesday, February 23, 2022. My impressions and recommendations are as follows: Impressions : - Esophageal plaques were found, consistent with candidiasis. Biopsied. - Two bleeding angiodysplastic lesions in the stomach. Treated with a monopolar probe. - Normal second portion of the duodenum. Recommendations : - [facility] - Nystatin suspension 100,000 units PO QID for 10 weeks. - Continue present medications. My findings are described in the full procedure note, which is enclosed. If I can be of further assistance, please feel free to contact me at . Sincerely, Tima Vazquez, 02/23/2022 12:04:50 PM This report has been signed electronically.
--- NOTE | 2022-02-23 12:30 | CASEMGMT ---
SARA met with patient's daughter Jailyn in patient's room. SARA introduced self and role at [facility]. Patient's daughter was just leaving a message for Lori at [place]. Jailyn said the plan is for patient to go to [place]. Jailyn would like patient to get stronger so she can return home. Jailyn said right now she cannot even get patient to her appointments. Jailyn spoke with patient and they agreed on this plan. SARA let her know SARA has already talked with Lori and will continue to work with her to get her mom to [place]. SARA told Jailyn SW is not sure if this is today or not, but SARA will keep her updated. Anna Hernandez DRILL SETUP OPERATOR JOVAN
[2022-02-23] MEDS: Insulin Lispro 100 UNIT/ML INSULN.PEN SC ×3 (12:57→21:45)
[2022-02-23 13:05] LABS: Bedside Glucose 204 mg/dL (74-106)
--- NOTE | 2022-02-23 13:31 | PN.HOSP_ITS ---
Documented by User: Jonh العلي 02/23/22 13:42 Subjective Subjective Patient is a 72-year-old female comfortably resting in bed, alert and orient x3. Patient denies development of any new symptoms overnight. Does not appear in acute distress. Objective Data Objective Data Vital Signs: Vital Signs Temp Pulse Resp BP Pulse Ox 98.5 F 55 L 18 149/67 H 97 02/23/22 12:52 02/23/22 12:52 02/23/22 12:52 02/23/22 12:52 02/23/22 12:52 Oxygen Delivery Method Room Air Weight: 222 lb 0.088 oz Body Mass Index (BMI) 40.6 Intake & Output: Intake and Output for Last 24 Hours 02/21/22 02/22/22 02/23/22 23:59 23:59 23:59 Intake Total 650 / 650 1701.25 / 1701.25 280 / 280 Output Total 350 / 350 1700 / 1700 300 / 300 Balance 300 / 300 1.25 / 1.25 -20 / -20 Lab / Micro Data Result Diagrams: 02/23/22 06:00 02/23/22 06:00 Labs: Laboratory Results - last 24 hr 02/22/22 15:54: POC Glucose 121 H 02/22/22 21:51: POC Glucose 202 H 02/23/22 06:00: WBC 6.6, RBC 2.93 L, Hgb 8.8 L, Hct 25.9 L, MCV 88.4, MCH 30.0, MCHC 34.0, RDW Std Deviation 53.8 H, RDW Coeff of Jenna 16.8 H, Plt Count 138 L, MPV 10.1, Immature Gran % (Auto) 0.500, Neut % (Auto) 86.5 H, Lymph % (Auto) 6.5 L, Esmeralda % (Auto) 6.5, Eos % (Auto) 0.0, Baso % (Auto) 0.0, Absolute Neuts (auto) 5.7, Absolute Lymphs (auto) 0.43 L, Nucleated RBC % 0, Differential Comment S CANNED 02/23/22 06:00: Sodium 140, Potassium 4.7, Chloride 114 H, Carbon Dioxide 21.0, Anion Gap 5, BUN 67 H, Creatinine 1.63 H, Estim Creat Clear Calc 24.67, Est GFR (MDRD) Af Amer 40 L, Est GFR (MDRD) Non-Af 33 L, BUN/Creatinine Ratio 41.1 H, Glucose 215 H, Calcium 7.1 L, Total Bilirubin 0.50, AST 25, ALT 63 H, Alkaline Phosphatase 141 H, Total Protein 4.2 L, Albumin 1.9 L, Globulin 2.3, Albumin/Globulin Ratio 0.8 L, TSH 0.09 L 02/23/22 06:00: PT 13.4, INR 1.1, APTT 26.6 02/23/22 06:00: Hemoglobin A1c 6.0 H 02/23/22 06:22: POC Glucose 209 H 02/23/22 12:52: POC Glucose 204 H Micro: Microbiology 02/23/22 08:10 Nasal Secretion SARS-CoV-2 Antigen (Rapid) - Final 02/21/22 15:25 Stool Stool Occult Blood (YELENA) - Final Occult Blood Positive Physical Exam Const alert, oriented x3 and no apparent distress HEENT head/scalp atraumatic and moist oral mucous membranes Head and Scalp: normocephalic Eyes PERRL and conjunctivae normal Neck no lymphadenopathy, supple and no JVD Resp normal respiratory effort, no retractions and no use of accessory muscles Cardio regular rate, regular rhythm and no JVD GI normal to inspection, nondistended, normoactive bowel sounds Extremity Extremity Narrative: Intact transmetatarsal amputation of the left foot. Skin no rashes or lesions noted Neuro CN's II-XII intact bilaterally Psych affect normal Assessment & Plan Assessment/Plan (1) Anemia: (2) Hypoglycemia associated with diabetes: PLAN: Day 2 Discharge planning: Discharge to [facility] on 02/24. 1) hypoglycemia in the setting of DM 2 Resolved, blood glucose currently 83. Brain MRI ordered to rule out a stroke given slurred speech, although patient does not complain of nor did she demonstrate any focal neurological deficits. Will discontinue dextrose infusions, continue Accu-Cheks with sliding scale, will titrate back to home insulin as necessary. 2) suspected GI bleed Hemoglobin currently 9.6 after transfusion of 2 units of PRBCs on 02/21. EGD completed on 02/23 and demonstrated to bleeding angiodysplastic lesions in the stomach which were treated, esophageal plaques were also appreciated consistent with candidiasis, appropriately biopsied. Duodenum was unremarkable. Recommendations are to continue current medications and initiate nystatin suspension 100,000 units 4 times daily for 10 weeks. 3) esophageal candidiasis Appreciated on EGD. Initiate nystatin as above. 4) prior history of stroke Hold aspirin and Plavix given #2, continue statin. 5) depression/anxiety Continue citalopram. 6) unspecified autoimmune disorder Patient with diffuse psoriatic lesions on the left arm and chest, follows with a secondary spanish teacher although unsure which one. Continue prednisone. 7) CAD status post CABG and x4 stent Hold aspirin and Plavix as above, continue metoprolol and Lipitor. 8) status post transmetatarsal amputation of the left foot Follows with Dr. Schmitz. Family reports that wound is healing well. 9) HTN Continue amlodipine and metoprolol. DVT prophylaxis - SCDs Patient seen by Jonh Etienne PA-C, under the supervision of Dr. Zhao. Time spent on patient care: 9 minutes. Documented by User: Dr. Dalia Zhao MD 02/23/22 15:03 Objective Data Lab / Micro Data Result Diagrams: 02/23/22 06:00 02/23/22 06:00 Charges/Coding Addendum Addendum: Patient seen by Joseph Etienne PA-C under my supervision Patient seen and examined. She has no complaints today and had an uneventful night. Review of systems is otherwise negative. O/E: Const alert, oriented x3 and no apparent distress General Appearance: cooperative HEENT normocephalic, head/scalp atraumatic, hearing grossly normal bilaterally and moist oral mucous membranes Eyes PERRL, EOMs intact bilaterally and conjunctivae normal Neck no lymphadenopathy, supple and no JVD Resp normal respiratory effort and clear to auscultation bilaterally Cardio regular rate, regular rhythm, S1 normal heart sound, S2 normal heart sound and no murmurs GI normal to inspection, nondistended, normoactive bowel sounds and soft to palpation Extremity normal to inspection, full ROM and no clubbing, cyanosis or edema Skin no rashes or lesions noted Neuro oriented x3, CN's II-XII intact bilaterally and moves all extremities Sensorium / Orientation: awake and alert Psych affect normal Assessment and plan #Hypoglycemia in the setting of DM2 * MRI ruled out a stroke * resulved. * on ISS. Accuchecks ACHS * #UGI bleed * hemoglobin is 9.6 today. She has been transfused with 2 units of PRBCs * had EGD on 02/23/2022 which showed bleeding angiodysplastic lesions in the stomach which was treated. She also had esophageal plaques with were biopsied. Duodenum was unremarkable * on IV PPI * GI on board * #Esophageal candidiasis: as per EGD above. On nystatin #History of stroke: on aspirin and plavix. On statin #Autoimmune disorder * not clear which disorder it is. Follows up with rheumatology * on prednisone * #CAD s/p stent x 4 and CABG * aspirin and plavix. on metoprolol and lipitor * Rest as per Jonh Etienne PA-C's note, which I have eviewed and endorsed. Total time spent on patient's care today: 15 mins, with Jonh Etienne spending 9 mins on the care of the patient, making a total of 24 mins. Disposition: for dc to SNF tomorrow Visit Charges Inpatient E&M: 43685 Subs Hosp L2
--- NOTE | 2022-02-23 13:43 | PCM.TXEXTCAR ---
Documented by User: Jonh العلي 02/23/22 13:49 Diet 02/23/22 06:45 NPO [Diet: Nothing Per Oral] Is pt able to select menu?: Yes Wound(s) Left abdominal fold: Wound Type: Stasis Ulcer left lateral lower leg: Wound Type: cluster of slow healing wounds with Epifix in place with wound veil Dressing Change: Dry Sterile Dressing Therapies Weight Bearing: Non weight bearing Physical Therapy: Eval and Treat Occupational Therapy: Eval and Treat Speech Therapy: Eval and Treat Problem/Diagnosis (1) Anemia: Status: Acute (2) Hypoglycemia associated with diabetes: Status: Acute Allergies/Procedures Done in Hospital Allergies baclofen Adverse Reaction (Verified 01/07/22 11:24) Other confusion Type of Care/Length of Stay Estimated LOS: Convalescent Care Less Than 30 days Type of Care Needed: Skilled Rehab Potential: Good Prognosis: Good Additional Orders/Day of Discharge Day of Discharge: 02/23/22 Dietary and Speech Recommendations Dietitian Recommendations/Changes: As medically able, rec NATHAN to 1800 christiano/ Sodium restricted diet Rec continue Vlad bid to help with wound healing. Discharge Plan Admission Admit Date/Time: 02/21/22 15:58 Primary Reason for Your Visit: Slurred speech Attending Provider: Dalia Zhao Primary Care Provider: Elia Ceja Chi Instructions Additional Instructions / Restrictions: * Discharge Orders/Prescriptions Prescriptions: New nystatin 100,000 unit/mL suspension 1 ml PO DAILY Qty: 300 RF: 0 Continued amlodipine 10 mg Tablet 10 mg PO DAILY RF: 0 metoprolol tartrate 25 mg Tablet 50 mg PO BID RF: 0 aspirin 81 mg Capsule 81 mg PO DAILY RF: 0 pantoprazole 20 MG tablet,delayed release (DR/EC) 40 mg PO DAILY RF: 0 levothyroxine 150 MCG tablet 125 mcg PO DAILY@0600 RF: 0 atorvastatin 80 MG tablet 80 mg PO QHS RF: 0 polyethylene glycol 3350 17 GM powder in packet 17 g PO DAILY RF: 0 clopidogrel 75 MG tablet 75 mg PO DAILY RF: 0 acetaminophen 500 mg Tablet 1,000 mg PO Q6H PRN PRN (Reason: Pain Score 1-10) Qty: 0 RF: 0 bisacodyl 5 mg Tablet,Delayed Release (Dr/Ec) 10 mg PO DAILY PRN (Reason: Constipation) Qty: 0 RF: 0 oxycodone 5 mg Tablet 5 mg PO Q4H PRN PRN (Reason: Pain Score 6-10) 3 Days Qty: 18 RF: 0 citalopram 10 mg tablet 10 mg PO DAILY RF: 0 menthol-zinc oxide [Calmoseptine] 0.44-20.6 % ointment 1 applic topical BID RF: 0 nystatin [Nyamyc] 100,000 unit/gram powder 1 applic topical BID RF: 0 Lantus Solostar U-100 Insulin 100 unit/mL (3 mL) Insulin Pen 40 unit SUBCUT QPM RF: 0 prednisone 20 MG tablet 40 mg PO DAILY RF: 0 Vlad (with collagen) 7-7-1.5 gram powder in packet 1 packet PO BIDCM RF: 0 ferrous sulfate [Iron (ferrous sulfate)] 325 mg (65 mg iron) Tablet 325 mg PO DAILY RF: 0 Referrals / Follow Up: Elia Ceja Chi, MD [Primary Care Provider] - Within 2 Weeks Disposition Disposition (needs filled in before D/C Order can be placed): [facility] Documented by User: Dr. Dalia Zhao MD 02/23/22 14:07 Allergies/Procedures Done in Hospital Allergies baclofen Adverse Reaction (Verified 01/07/22 11:24) Other confusion Discharge Plan Admission Admit Date/Time: 02/21/22 15:58 Primary Reason for Your Visit: Slurred speech Attending Provider: Dalia Zhao Primary Care Provider: Elia Ceja Chi Instructions Additional Instructions / Restrictions: * Discharge Orders/Prescriptions Prescriptions: New nystatin 100,000 unit/mL suspension 1 ml PO DAILY Qty: 300 RF: 0 Continued amlodipine 10 mg Tablet 10 mg PO DAILY RF: 0 metoprolol tartrate 25 mg Tablet 50 mg PO BID RF: 0 aspirin 81 mg Capsule 81 mg PO DAILY RF: 0 pantoprazole 20 MG tablet,delayed release (DR/EC) 40 mg PO DAILY RF: 0 levothyroxine 150 MCG tablet 125 mcg PO DAILY@0600 RF: 0 atorvastatin 80 MG tablet 80 mg PO QHS RF: 0 polyethylene glycol 3350 17 GM powder in packet 17 g PO DAILY RF: 0 clopidogrel 75 MG tablet 75 mg PO DAILY RF: 0 acetaminophen 500 mg Tablet 1,000 mg PO Q6H PRN PRN (Reason: Pain Score 1-10) Qty: 0 RF: 0 bisacodyl 5 mg Tablet,Delayed Release (Dr/Ec) 10 mg PO DAILY PRN (Reason: Constipation) Qty: 0 RF: 0 oxycodone 5 mg Tablet 5 mg PO Q4H PRN PRN (Reason: Pain Score 6-10) 3 Days Qty: 18 RF: 0 citalopram 10 mg tablet 10 mg PO DAILY RF: 0 menthol-zinc oxide [Calmoseptine] 0.44-20.6 % ointment 1 applic topical BID RF: 0 nystatin [Nyamyc] 100,000 unit/gram powder 1 applic topical BID RF: 0 Lantus Solostar U-100 Insulin 100 unit/mL (3 mL) Insulin Pen 40 unit SUBCUT QPM RF: 0 prednisone 20 MG tablet 40 mg PO DAILY RF: 0 Vlad (with collagen) 7-7-1.5 gram powder in packet 1 packet PO BIDCM RF: 0 ferrous sulfate [Iron (ferrous sulfate)] 325 mg (65 mg iron) Tablet 325 mg PO DAILY RF: 0 Referrals / Follow Up: Elia Ceja Chi, MD [Primary Care Provider] - Within 2 Weeks Disposition Disposition (needs filled in before D/C Order can be placed): [facility]
--- NOTE | 2022-02-23 13:59 | CASEMGMT ---
SARA spoke with Lori and she said that based on the notes SW sent them today they cannot bring patient in skilled. Therefore, SW will need to get a level of care from [facility]. SARA notified patient and her daughter that patient will be discharged tomorrow. Anna Hernandez RESPIRATORY THERAPY INSTRUCTOR JOVAN
--- NOTE | 2022-02-23 14:21 | CASEMGMT ---
SARA faxed all necessary information to [facility] to obtain a level of care. Await results. Plan: d/c to [place] under intermediate level of care pending receipt of level of care from [facility]. Anna Hernandez SPANISH LECTURER JOVAN
[2022-02-23 15:15] LABS: Bedside Glucose 220 mg/dL (74-106)
--- NOTE | 2022-02-23 15:26 | CHAPLAIN ---
Type of Pastoral Visit _x__ Initial Visit ___ Follow-up Visit ___ On-call Visit ___ General Patient Visit ___ Spiritual Assessment ___ Family Conference ___ Bereavement ___ Rapid Response ___ Code Blue ___ Other (describe below) Pastoral Care Referral From _x__ Patient _x__ Family ___ Nurse ___ Physician ___ Customer Field Representative ___ Manager Media Relations ___ Other (describe below) Sacrament/Intervention _x__ Active listening ___ Anointing ___ Hinduism ___ Bereavement ___ Communion ___ Nydia exploration ___ ___ Life review _x__ Prayer ___ Reconciliation ___ Sacrament of Sick _x__ Supportive presence ___ Wedding ___ Other (describe below) Pastoral Comments patient had procedure done and waiting to be moved to [facility] sometime; pt is welcoming of support and requests prayers for her health; family members are with her and express thanks for the spiritual care; prayer and presence given
[2022-02-23] MEDS: Juven (unflavored) Packet 1 PACKET PO (16:36)
[2022-02-23 16:57] LABS: Bedside Glucose 229 mg/dL (74-106)
[2022-02-23] MEDS: Atorvastatin Calcium 80 MG Tablet PO (21:46)
[2022-02-23 22:56] LABS: Bedside Glucose 250 mg/dL (74-106)
[2022-02-24] VITALS (8 sets, daily range): BP systolic 162–203; BP diastolic 57–75; PULSE 53–63; RESP 18; TEMP 36.8; O2SAT 97–99
[2022-02-24] MEDS: hydrALAZINE 20 MG/ML Vial 5 MG IV (04:14)
[2022-02-24] MEDS: Levothyroxine 125 MCG Tablet PO (06:13)
--- NOTE | 2022-02-24 06:33 | PN_ITS ---
Subjective Subjective This 72-year-old female with multiple comorbidities was seen bedside for left leg ulcers. She has been trying to offload the ulcer sites and has kept the dressing intact. She had epi fix, advanced wound healing product intact from her last wound center visit. She denies fever, chills, nausea, vomiting or significant pain to the left lower extremity this morning. Objective Data Objective Data Vital Signs: Vital Signs Temp Pulse Resp BP Pulse Ox 98.2 F 58 L 18 179/75 H 97 02/24/22 04:06 02/24/22 04:14 02/24/22 04:06 02/24/22 06:17 02/24/22 04:06 Oxygen Delivery Method Room Air Weight: 101.5 kg Body Mass Index (BMI) 40.6 Intake & Output: Intake and Output for Last 24 Hours 02/22/22 02/23/22 02/24/22 23:59 23:59 23:59 Intake Total 1701.25 / 1701.25 870 / 1110 440 / 440 Output Total 1700 / 1700 1100 / 1300 500 / 500 Balance 1.25 / 1.25 -230 / -190 -60 / -60 Lab / Micro Data Result Diagrams: 02/23/22 06:00 02/23/22 06:00 Labs: Laboratory Results - last 24 hr 02/23/22 06:00: WBC 6.6, RBC 2.93 L, Hgb 8.8 L, Hct 25.9 L, MCV 88.4, MCH 30.0, MCHC 34.0, RDW Std Deviation 53.8 H, RDW Coeff of Jenna 16.8 H, Plt Count 138 L, MPV 10.1, Immature Gran % (Auto) 0.500, Neut % (Auto) 86.5 H, Lymph % (Auto) 6.5 L, [place] % (Auto) 6.5, Eos % (Auto) 0.0, Baso % (Auto) 0.0, Absolute Neuts (auto) 5.7, Absolute Lymphs (auto) 0.43 L, Nucleated RBC % 0, Differential Comment SCANNED 02/23/22 06:00: Sodium 140, Potassium 4.7, Chloride 114 H, Carbon Dioxide 21.0, Anion Gap 5, BUN 67 H, Creatinine 1.63 H, Estim Creat Clear Calc 24.67, Est GFR (MDRD) Af Amer 40 L, Est GFR (MDRD) Non-Af 33 L, BUN/Creatinine Ratio 41.1 H, Glucose 215 H, Calcium 7.1 L, Total Bilirubin 0.50, AST 25, ALT 63 H, Alkaline Phosphatase 141 H, Total Protein 4.2 L, Albumin 1.9 L, Globulin 2.3, Albumin/Globulin Ratio 0.8 L, TSH 0.09 L 02/23/22 06:00: PT 13.4, INR 1.1, APTT 26.6 02/23/22 06:00: Hemoglobin A1c 6.0 H 02/23/22 06:22: POC Glucose 209 H 02/23/22 12:52: POC Glucose 204 H 02/23/22 15:10: POC Glucose 220 H 02/23/22 16:32: POC Glucose 229 H 02/23/22 21:40: POC Glucose 250 H Micro: Microbiology 02/23/22 08:10 Nasal Secretion SARS-CoV-2 Antigen (Rapid) - Final 02/21/22 15:25 Stool Stool Occult Blood (YELENA) - Final Occult Blood Positive Physical Exam Extremity Extremity Narrative: Left foot Transmetatarsal amputation. There is healed anterior ankle /lower leg ulcer site with full epithelialization. Skin remodeling progression is noted. the lateral left leg ulcer granular base noted now with reduced cluster size and ulceration depths. there is no longer any eschar, hypergranular, or deep tissue exposure. There is no crepitus, no visible abscess noted to the left foot, ankle or leg. No local signs of infection or odor are noted The prior evidence of abrasions and excoriations to the transmetatarsal amputation stump site are healed without inflammatory changes today. Decreased sensation to the left foot w chronic peripheral neuropathy, no evidence of acute ischemia to the bilateral foot or ankle, no evidence of charcot neuroarthropathy or compartment syndrome either. Reduced palpable pulse left. 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 Reviewed diagnostic data. She is afebrile and her vital signs are stable. Dressing: Prior wound veil was removed and the leg was cleaned with soap and water. To change dressing with Adaptic, 4 x 4 gauze, ABD pad, Kerlix, Alejandro wrap every 1 to 2 days. Offload: To maintain a nonweightbearing status left lower extremity. Keep open ulcers offloaded at all times. To avoid laying directly on the lateral left leg ulcer while in bed. Heels to be kept offloaded at all times as well. Vascular: To follow-up with Dr. Aguilar - She had prior angio with balloon angioplasty to the popliteal and proximal anterior tibial artery of the left lower extremity. Host factors: She has uncontrolled diabetes and known peripheral vascular disease amongst her other comorbidities. Medical management per hospitalist is greatly appreciated. Nutritional supplementation recommended to optimize healing. Infection: There are no local signs of infection today. This patient is noted to be expected to be transferred to another facility sometime later today. Please do not hesitate to call if you have any questions . To follow-up with the wound healing center in about a week with Dr. Schmitz. Cristal Schmitz DPM, [facility] [phone]
[2022-02-24] MEDS: Insulin Lispro 100 UNIT/ML INSULN.PEN SC ×2 (06:45→11:27)
[2022-02-24 06:55] LABS: Bedside Glucose 203 mg/dL (74-106)
--- NOTE | 2022-02-24 07:41 | CASEMGMT ---
SW received patient's level of care. SARA will notify physician. Anna ALDANA
[2022-02-24] MEDS: Citalopram 10 MG Tablet PO (08:42)
[2022-02-24] MEDS: Juven (unflavored) Packet 1 PACKET PO (08:42)
[2022-02-24] MEDS: predniSONE 20 MG Tablet 40 MG PO (08:42)
[2022-02-24] MEDS: hydrALAZINE 10 MG Tablet PO (09:24)
[2022-02-24] MEDS: Acetaminophen 500 MG Tablet 1000 MG PO (10:11)
[2022-02-24] MEDS: amLODIPine 10 MG Tablet PO (10:11)
[2022-02-24] MEDS: Metoprolol Tartrate 50 MG Tablet PO (10:11)
--- NOTE | 2022-02-24 11:18 | TREXTCAR_ITS ---
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 Discharge Plan Admission Admit Date/Time: 02/21/22 15:58 Primary Reason for Your Visit: Slurred speech Attending Provider: Dalia Zhao Primary Care Provider: Elia Ceja [employer] Providers: Cristal Schmitz Instructions Additional Instructions / Restrictions: * Change dressing every other day and wash with soap and water. * Change dressing with Adaptic, 4 x 4 gauze, ABD pad, Kerlix, secure with Alejandro wraps. * Avoid laying in bed with direct pressure to the ulcer sites. * You were started on Hydralazine because your blood pressures were elevated throughout your stay in the hospital. Please follow up with your primary care provider for further adjustment of this medication. Discharge Orders/Prescriptions Prescriptions: New hydralazine 10 mg tablet 10 mg PO BID Qty: 60 RF: 0 nystatin 100,000 unit/mL suspension 1 ml PO .QID Qty: 300 RF: 0 Continued amlodipine 10 mg Tablet 10 mg PO DAILY RF: 0 metoprolol tartrate 25 mg Tablet 50 mg PO BID RF: 0 aspirin 81 mg Capsule 81 mg PO DAILY RF: 0 pantoprazole 20 MG tablet,delayed release (DR/EC) 40 mg PO DAILY RF: 0 levothyroxine 150 MCG tablet 125 mcg PO DAILY@0600 RF: 0 atorvastatin 80 MG tablet 80 mg PO QHS RF: 0 polyethylene glycol 3350 17 GM powder in packet 17 g PO DAILY RF: 0 clopidogrel 75 MG tablet 75 mg PO DAILY RF: 0 acetaminophen 500 mg Tablet 1,000 mg PO Q6H PRN PRN (Reason: Pain Score 1-10) Qty: 0 RF: 0 bisacodyl 5 mg Tablet,Delayed Release (Dr/Ec) 10 mg PO DAILY PRN (Reason: Constipation) Qty: 0 RF: 0 oxycodone 5 mg Tablet 5 mg PO Q4H PRN PRN (Reason: Pain Score 6-10) 3 Days Qty: 18 RF: 0 citalopram 10 mg tablet 10 mg PO DAILY RF: 0 menthol-zinc oxide [Calmoseptine] 0.44-20.6 % ointment 1 applic topical BID RF: 0 nystatin [Nyamyc] 100,000 unit/gram powder 1 applic topical BID RF: 0 Lantus Solostar U-100 Insulin 100 unit/mL (3 mL) Insulin Pen 40 unit SUBCUT QPM RF: 0 prednisone 20 MG tablet 40 mg PO DAILY RF: 0 Vlad (with collagen) 7-7-1.5 gram powder in packet 1 packet PO BIDCM RF: 0 ferrous sulfate [Iron (ferrous sulfate)] 325 mg (65 mg iron) Tablet 325 mg PO DAILY RF: 0 Referrals / Follow Up: Cristal Schmitz DPM [STAFF PHYSICIAN] - In 1 Week (Follow-up at wound healing center and about a week. Call [phone].) Elia Ceja Chi, MD [Primary Care Provider] - Within 2 Weeks Disposition Disposition (needs filled in before D/C Order can be placed): Nursing Home Facility Documented by User: Dr. Dalia Zhao MD 02/24/22 11:31 Allergies/Procedures Done in Hospital Allergies baclofen Adverse Reaction (Verified 01/07/22 11:24) Other confusion Discharge Plan Admission Admit Date/Time: 02/21/22 15:58 Primary Reason for Your Visit: Slurred speech Attending Provider: Dalia Zhao Primary Care Provider: Elia Ceja [employer] Providers: Cristal Schmitz Instructions Additional Instructions / Restrictions: * Change dressing every other day and wash with soap and water. * Change dressing with Adaptic, 4 x 4 gauze, ABD pad, Kerlix, secure with Alejandro wraps. * Avoid laying in bed with direct pressure to the ulcer sites. * You were started on Hydralazine because your blood pressures were elevated throughout your stay in the hospital. Please follow up with your primary care provider for further adjustment of this medication. Discharge Orders/Prescriptions Prescriptions: New hydralazine 10 mg tablet 10 mg PO BID Qty: 60 RF: 0 nystatin 100,000 unit/mL suspension 1 ml PO .QID Qty: 300 RF: 0 Continued amlodipine 10 mg Tablet 10 mg PO DAILY RF: 0 metoprolol tartrate 25 mg Tablet 50 mg PO BID RF: 0 aspirin 81 mg Capsule 81 mg PO DAILY RF: 0 pantoprazole 20 MG tablet,delayed release (DR/EC) 40 mg PO DAILY RF: 0 levothyroxine 150 MCG tablet 125 mcg PO DAILY@0600 RF: 0 atorvastatin 80 MG tablet 80 mg PO QHS RF: 0 polyethylene glycol 3350 17 GM powder in packet 17 g PO DAILY RF: 0 clopidogrel 75 MG tablet 75 mg PO DAILY RF: 0 acetaminophen 500 mg Tablet 1,000 mg PO Q6H PRN PRN (Reason: Pain Score 1-10) Qty: 0 RF: 0 bisacodyl 5 mg Tablet,Delayed Release (Dr/Ec) 10 mg PO DAILY PRN (Reason: Constipation) Qty: 0 RF: 0 oxycodone 5 mg Tablet 5 mg PO Q4H PRN PRN (Reason: Pain Score 6-10) 3 Days Qty: 18 RF: 0 citalopram 10 mg tablet 10 mg PO DAILY RF: 0 menthol-zinc oxide [Calmoseptine] 0.44-20.6 % ointment 1 applic topical BID RF: 0 nystatin [Nyamyc] 100,000 unit/gram powder 1 applic topical BID RF: 0 Lantus Solostar U-100 Insulin 100 unit/mL (3 mL) Insulin Pen 40 unit SUBCUT QPM RF: 0 prednisone 20 MG tablet 40 mg PO DAILY RF: 0 Vlad (with collagen) 7-7-1.5 gram powder in packet 1 packet PO BIDCM RF: 0 ferrous sulfate [Iron (ferrous sulfate)] 325 mg (65 mg iron) Tablet 325 mg PO DAILY RF: 0 Referrals / Follow Up: Cristal Schmitz DPM [STAFF PHYSICIAN] - In 1 Week (Follow-up at wound healing center and about a week. Call [phone].) Elia Ceja Chi, MD [Primary Care Provider] - Within 2 Weeks Disposition Disposition (needs filled in before D/C Order can be placed): Nursing Home Facility
--- NOTE | 2022-02-24 11:22 | PHA.DC.MR ---
Pharmacy Service has performed discharge medication reconciliation for this patient. The patient's discharge medication list was reviewed for discrepancies and discrepancies were resolved. This [facility] spoke to Jonh Etienne regarding nystatin. Written for nystatin 100,000 units PO daily with comment of 4 times daily for 10 weeks, this is usually dosed as 500,000units. Jonh will keep 100,000units dosing recommended by GI. Home Medications amlodipine 10 mg PO DAILY 08/07/21 aspirin 81 mg PO DAILY 08/07/21 levothyroxine 125 mcg PO DAILY@0600 08/07/21 metoprolol tartrate 50 mg PO BID 08/07/21 pantoprazole 40 mg PO DAILY 08/07/21 atorvastatin 80 mg PO QHS 08/12/21 clopidogrel 75 mg PO DAILY 08/12/21 polyethylene glycol 3350 17 g PO DAILY 08/12/21 acetaminophen 1,000 mg PO Q6H PRN PRN #0 tab 08/29/21 bisacodyl 10 mg PO DAILY PRN #0 tab 08/29/21 oxycodone 5 mg PO Q4H PRN PRN 3 Days #18 tab 08/29/21 Vlad (with collagen) 1 packet PO BIDCM 02/21/22 Lantus Solostar U-100 Insulin 40 unit SUBCUT QPM 02/21/22 citalopram 10 mg PO DAILY 02/21/22 ferrous sulfate [Iron (ferrous sulfate)] 325 mg PO DAILY 02/21/22 menthol-zinc oxide [Calmoseptine] 1 applic TOPICAL BID 02/21/22 nystatin [Nyamyc] 1 applic TOPICAL BID 02/21/22 prednisone 40 mg PO DAILY 02/21/22 hydralazine 10 mg PO BID #60 tab 02/24/22 nystatin 1 ml PO .QID #300 ml 02/24/22
--- NOTE | 2022-02-24 11:41 | CASEMGMT ---
SARA notified Lori that patient is going to be coming today. SARA obtained orders. SARA arranged for patient to get picked up at 1300 via cot. SARA faxed orders, pick up operator time, and negative COVID test to [place]. SARA notified patient and her daughter of pick up operator time as well as RN. Message was left for Lori at [place]. All in agreement with discharge plan. 7000 was completed in [employer] system. Plan: d/c to [place] under intermediate level of care on a convalescent stay. Physicians transported via cot. Anna Hernandez [employer]
--- NOTE | 2022-02-24 12:23 | PCM.DC.SUM ---
Documented by User: Jonh العلي 02/24/22 12:33 Providers Date of Admission: 02/21/22 Primary Care Physician: Dr. Elia Ceja MD Consultations 02/21/22 17:08 Consult: Gastroenterology Routine Consulting Provider: Swetha Gastroenter[facility] Reason for Consult: Acute GI bleed EMERGENT Consult: No Notified: Yes Date Notified: 02/21/22 Time Notified: 17:16 Method of Notification: Text Consult: Onc/Wound/circuits engineer Routine Comment: 02/24/22 07:09 Consult: Podiatry Routine Consulting Provider: Cristal Schmitz Reason for Consult: chronic LLE wounds EMERGENT Consult: No Notified: Yes Date Notified: 02/24/22 Time Notified: 06:50 Method of Notification: Verbal Method of Consult:: In-Person Reason For Visit: PEDRO/HYPOGLYCEMIA Diagnosis Discharge Diagnosis (1) Peripheral arterial occlusive disease: Status: Acute Code(s): I77.9 - Disorder of arteries and arterioles, unspecified (2) Type 2 diabetes mellitus with diabetic polyneuropathy: Status: Acute Code(s): E11.42 - Type 2 diabetes mellitus with diabetic polyneuropathy Qualifiers: Diabetes mellitus senior living insulin use: with dedicated intermodal truck driver use Qualified Code(s): E11.42 - Type 2 diabetes mellitus with diabetic polyneuropathy; Z79.4 - roasterman (current) use of insulin (3) 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: Status: Acute Code(s): L97.922 - Non-pressure chronic ulcer of unspecified part of left lower leg with fat layer exposed Medications at Discharge Home Medications amlodipine 10 mg PO DAILY 08/07/21 aspirin 81 mg PO DAILY 08/07/21 levothyroxine 125 mcg PO DAILY@0600 08/07/21 metoprolol tartrate 50 mg PO BID 08/07/21 pantoprazole 40 mg PO DAILY 08/07/21 atorvastatin 80 mg PO QHS 08/12/21 clopidogrel 75 mg PO DAILY 08/12/21 polyethylene glycol 3350 17 g PO DAILY 08/12/21 acetaminophen 1,000 mg PO Q6H PRN PRN #0 tab 08/29/21 bisacodyl 10 mg PO DAILY PRN #0 tab 08/29/21 oxycodone 5 mg PO Q4H PRN PRN 3 Days #18 tab 08/29/21 Vlad (with collagen) 1 packet PO BIDCM 02/21/22 Lantus Solostar U-100 Insulin 40 unit SUBCUT QPM 02/21/22 citalopram 10 mg PO DAILY 02/21/22 ferrous sulfate [Iron (ferrous sulfate)] 325 mg PO DAILY 02/21/22 menthol-zinc oxide [Calmoseptine] 1 applic TOPICAL BID 02/21/22 nystatin [Nyamyc] 1 applic TOPICAL BID 02/21/22 prednisone 40 mg PO DAILY 02/21/22 hydralazine 10 mg PO BID #60 tab 02/24/22 nystatin 1 ml PO .QID #300 ml 02/24/22 Hospital Course Summary of Care Provided Minutes Spent on Discharge: 20 Hospital Course: Patient is a 72-year-old female who was admitted to [facility] on 02/21/2022 for evaluation and management of hypoglycemia, slurred speech and anemia. Hospital course and management as below. 1) hypoglycemia in the setting of DM 2 Resolved, blood glucose currently 83. Brain MRI ordered to rule out a stroke given slurred speech, although patient does not complain of nor did she demonstrate any focal neurological deficits. Continue home diabetic regimen. 2) suspected GI bleed Hemoglobin currently 9.6 after transfusion of 2 units of PRBCs on 02/21. EGD completed on 02/23 and demonstrated to bleeding angiodysplastic lesions in the stomach which were treated, esophageal plaques were also appreciated consistent with candidiasis, appropriately biopsied. Duodenum was unremarkable. Recommendations are to continue current medications and initiate nystatin suspension 100,000 units 4 times daily for 10 weeks. 3) esophageal candidiasis Appreciated on EGD. Initiate nystatin as above. 4) Debility Will discharge to SNF for ongoing skilled therapy and rehab. 5) depression/anxiety Continue citalopram. 6) unspecified autoimmune disorder Patient with diffuse psoriatic lesions on the left arm and chest, follows with a survey research associate although unsure which one. Continue prednisone. 7) CAD status post CABG and x4 stent Hold aspirin and Plavix as above, continue metoprolol and Lipitor. 8) status post transmetatarsal amputation of the left foot Follows with Dr. Schmitz. Family reports that wound is healing well. 9) HTN Continue amlodipine and metoprolol. 10) prior history of stroke Continue aspirin and Plavix. Patient seen by Jonh Etienne PA-C, under the supervision of Dr. Zhao. Time spent on patient care: 20 minutes. Physical Exam Narrative Patient is a 72-year-old female currently resting in bed, alert and orient x3. Patient denies development of any new symptoms overnight. Does not appear in acute distress. Const alert, oriented x3 and no apparent distress HEENT normocephalic, head/scalp atraumatic and hearing grossly normal bilaterally Eyes PERRL and conjunctivae normal Neck no lymphadenopathy, supple and no JVD Resp normal respiratory effort, no retractions and no use of accessory muscles Cardio regular rate, regular rhythm and no JVD GI normal to inspection, nondistended, normoactive bowel sounds Extremity Extremity Narrative: Intact transmetatarsal amputation of the left lower extremity. Skin no rashes or lesions noted Neuro CN's II-XII intact bilaterally Psych affect normal Weight / BMI Weight Weight: 223 lb 12.307 oz Body Mass Index (BMI) 40.6 ABG / Lab / Microbiology Data Result Diagrams: 02/23/22 06:00 02/23/22 06:00 Laboratory: Laboratory Results - last 24 hr 02/23/22 12:52: POC Glucose 204 H 02/23/22 15:10: POC Glucose 220 H 02/23/22 16:32: POC Glucose 229 H 02/23/22 21:40: POC Glucose 250 H 02/24/22 06:14: POC Glucose 203 H Microbiology: Microbiology 02/23/22 08:10 Nasal Secretion SARS-CoV-2 Antigen (Rapid) - Final 02/21/22 15:25 Stool Stool Occult Blood (YELENA) - Final Occult Blood Positive Meaningful Use Info Meaningful Use Diagnoses (Choose all that apply): None applicable Discharge Plan Admission Admit Date/Time: 02/21/22 15:58 Primary Reason for Your Visit: Slurred speech Attending Provider: Dalia Zhao Primary Care Provider: Elia Ceja Chi Consulting Providers: Cristal Schmitz Instructions Additional Instructions / Restrictions: * Change dressing every other day and wash with soap and water. * Change dressing with Adaptic, 4 x 4 gauze, ABD pad, Kerlix, secure with Alejandro wraps. * Avoid laying in bed with direct pressure to the ulcer sites. * You were started on Hydralazine because your blood pressures were elevated throughout your stay in the hospital. Please follow up with your primary care provider for further adjustment of this medication. Discharge Orders/Prescriptions Prescriptions: New hydralazine 10 mg tablet 10 mg PO BID Qty: 60 RF: 0 nystatin 100,000 unit/mL suspension 1 ml PO .QID Qty: 300 RF: 0 Continued amlodipine 10 mg Tablet 10 mg PO DAILY RF: 0 metoprolol tartrate 25 mg Tablet 50 mg PO BID RF: 0 aspirin 81 mg Capsule 81 mg PO DAILY RF: 0 pantoprazole 20 MG tablet,delayed release (DR/EC) 40 mg PO DAILY RF: 0 levothyroxine 150 MCG tablet 125 mcg PO DAILY@0600 RF: 0 atorvastatin 80 MG tablet 80 mg PO QHS RF: 0 polyethylene glycol 3350 17 GM powder in packet 17 g PO DAILY RF: 0 clopidogrel 75 MG tablet 75 mg PO DAILY RF: 0 acetaminophen 500 mg Tablet 1,000 mg PO Q6H PRN PRN (Reason: Pain Score 1-10) Qty: 0 RF: 0 bisacodyl 5 mg Tablet,Delayed Release (Dr/Ec) 10 mg PO DAILY PRN (Reason: Constipation) Qty: 0 RF: 0 oxycodone 5 mg Tablet 5 mg PO Q4H PRN PRN (Reason: Pain Score 6-10) 3 Days Qty: 18 RF: 0 citalopram 10 mg tablet 10 mg PO DAILY RF: 0 menthol-zinc oxide [Calmoseptine] 0.44-20.6 % ointment 1 applic topical BID RF: 0 nystatin [Nyamyc] 100,000 unit/gram powder 1 applic topical BID RF: 0 Lantus Solostar U-100 Insulin 100 unit/mL (3 mL) Insulin Pen 40 unit SUBCUT QPM RF: 0 prednisone 20 MG tablet 40 mg PO DAILY RF: 0 Vlad (with collagen) 7-7-1.5 gram powder in packet 1 packet PO BIDCM RF: 0 ferrous sulfate [Iron (ferrous sulfate)] 325 mg (65 mg iron) Tablet 325 mg PO DAILY RF: 0 Referrals / Follow Up: Cristal Schmitz DPM [STAFF PHYSICIAN] - In 1 Week (Follow-up at [facility] healing center and about a week. Call [phone].) Elia Ceja Chi, MD [Primary Care Provider] - Within 2 Weeks Disposition Disposition (needs filled in before D/C Order can be placed): [facility] Facility Documented by User: Dr. Dalia Zhao MD 02/24/22 13:59 Providers Date of Admission: 02/21/22 Reason For Visit: PEDRO/HYPOGLYCEMIA Medications at Discharge Home Medications amlodipine 10 mg PO DAILY 08/07/21 aspirin 81 mg PO DAILY 08/07/21 levothyroxine 125 mcg PO DAILY@0600 08/07/21 metoprolol tartrate 50 mg PO BID 08/07/21 pantoprazole 40 mg PO DAILY 08/07/21 atorvastatin 80 mg PO QHS 08/12/21 clopidogrel 75 mg PO DAILY 08/12/21 polyethylene glycol 3350 17 g PO DAILY 08/12/21 acetaminophen 1,000 mg PO Q6H PRN PRN #0 tab 08/29/21 bisacodyl 10 mg PO DAILY PRN #0 tab 08/29/21 oxycodone 5 mg PO Q4H PRN PRN 3 Days #18 tab 08/29/21 Vlad (with collagen) 1 packet PO BIDCM 02/21/22 Lantus Solostar U-100 Insulin 40 unit SUBCUT QPM 02/21/22 citalopram 10 mg PO DAILY 02/21/22 ferrous sulfate [Iron (ferrous sulfate)] 325 mg PO DAILY 02/21/22 menthol-zinc oxide [Calmoseptine] 1 applic TOPICAL BID 02/21/22 nystatin [Nyamyc] 1 applic TOPICAL BID 02/21/22 prednisone 40 mg PO DAILY 02/21/22 hydralazine 10 mg PO BID #60 tab 02/24/22 nystatin 1 ml PO .QID #300 ml 02/24/22 ABG / Lab / Microbiology Data Result Diagrams: 02/23/22 06:00 02/23/22 06:00 Discharge Plan Admission Admit Date/Time: 02/21/22 15:58 Primary Reason for Your Visit: Slurred speech Attending Provider: Dalia Zhao Primary Care Provider: Elia Ceja Chi Consulting Providers: Cristal Schmitz Instructions Additional Instructions / Restrictions: * Change dressing every other day and wash with soap and water. * Change dressing with Adaptic, 4 x 4 gauze, ABD pad, Kerlix, secure with Alejandro wraps. * Avoid laying in bed with direct pressure to the ulcer sites. * You were started on Hydralazine because your blood pressures were elevated throughout your stay in the hospital. Please follow up with your primary care provider for further adjustment of this medication. Discharge Orders/Prescriptions Prescriptions: New hydralazine 10 mg tablet 10 mg PO BID Qty: 60 RF: 0 nystatin 100,000 unit/mL suspension 1 ml PO .QID Qty: 300 RF: 0 Continued amlodipine 10 mg Tablet 10 mg PO DAILY RF: 0 metoprolol tartrate 25 mg Tablet 50 mg PO BID RF: 0 aspirin 81 mg Capsule 81 mg PO DAILY RF: 0 pantoprazole 20 MG tablet,delayed release (DR/EC) 40 mg PO DAILY RF: 0 levothyroxine 150 MCG tablet 125 mcg PO DAILY@0600 RF: 0 atorvastatin 80 MG tablet 80 mg PO QHS RF: 0 polyethylene glycol 3350 17 GM powder in packet 17 g PO DAILY RF: 0 clopidogrel 75 MG tablet 75 mg PO DAILY RF: 0 acetaminophen 500 mg Tablet 1,000 mg PO Q6H PRN PRN (Reason: Pain Score 1-10) Qty: 0 RF: 0 bisacodyl 5 mg Tablet,Delayed Release (Dr/Ec) 10 mg PO DAILY PRN (Reason: Constipation) Qty: 0 RF: 0 oxycodone 5 mg Tablet 5 mg PO Q4H PRN PRN (Reason: Pain Score 6-10) 3 Days Qty: 18 RF: 0 citalopram 10 mg tablet 10 mg PO DAILY RF: 0 menthol-zinc oxide [Calmoseptine] 0.44-20.6 % ointment 1 applic topical BID RF: 0 nystatin [Nyamyc] 100,000 unit/gram powder 1 applic topical BID RF: 0 Lantus Solostar U-100 Insulin 100 unit/mL (3 mL) Insulin Pen 40 unit SUBCUT QPM RF: 0 prednisone 20 MG tablet 40 mg PO DAILY RF: 0 Vlad (with collagen) 7-7-1.5 gram powder in packet 1 packet PO BIDCM RF: 0 ferrous sulfate [Iron (ferrous sulfate)] 325 mg (65 mg iron) Tablet 325 mg PO DAILY RF: 0 Referrals / Follow Up: Cristal Schmitz DPM [STAFF PHYSICIAN] - In 1 Week (Follow-up at wound healing center and about a week. Call [phone].) Elia Ceja Chi, MD [Primary Care Provider] - Within 2 Weeks Disposition Disposition (needs filled in before D/C Order can be placed): [facility] Facility Charges/Coding Addendum Addendum: Patient seen by Jonh Etienne PA-C under my supervision Patient is a 73-year-old female with a past medical history as outlined was admitted through the ED on 02/21/2022 with a complaint of brief episode of slurred speech. Family therefore brought her in. She did not have any other neurological symptoms apart from chronic left-sided arm weakness on account of previous strokes. CT of the brain showed no evidence of intracranial hemorrhage or infarct. She was however found to have low blood sugar with blood sugar being 43 in the ED and she says she did not eat much that morning though she had taken her insulin. Her hemoglobin was also found to be 7.7. Stool for occult blood that was guaiac positive. She was admitted and managed for acute metabolic encephalopathy due to hypoglycemia as well as acute on chronic anemia due to GI bleed. Gastroenterology was consulted. She was transfused with 2 units of packed red blood cells. She had EGD on 02/23/2022 which showed bleeding angiodysplastic lesions in the stomach which were treated and esophageal plaques consistent with candidiasis which were biopsied. She was placed on nystatin. MRI of the brain done was negative for stroke. Patient remained stable and was discharged to a [facility] facility on 02/24/2022. She is follow-up with her primary care doctor in 1 to 2 weeks. Patient was seen and examined prior to discharge. She had no active complaints and had an uneventful night. Review of symptoms otherwise negative. Labs and vitals reviewed. Medication reviewed and reconciled. O/E Narrative Patient is a 72-year-old female currently resting in bed, alert and orient x3. Patient denies development of any new symptoms overnight. Does not appear in acute distress. Const alert, oriented x3 and no apparent distress HEENT normocephalic, head/scalp atraumatic and hearing grossly normal bilaterally Eyes PERRL and conjunctivae normal Neck no lymphadenopathy, supple and no JVD Resp normal respiratory effort, no retractions and no use of accessory muscles Cardio regular rate, regular rhythm and no JVD GI normal to inspection, nondistended, normoactive bowel sounds Extremity Extremity Narrative: Intact transmetatarsal amputation of the left lower extremity. Skin no rashes or lesions noted Neuro CN's II-XII intact bilaterally Psych affect normal Plan is for discharge to [facility] facility as above. Rest as per Jonh Etienne PA-C's notes which I reviewed and endorsed. Total time I spent on the discharge of the patient today is 30 minutes with Jonh Etienne spending 20 minutes making a total of 50 minutes. Visit Charges Inpatient E&M: 21990 Disch Hosp
[2022-02-24 12:31] LABS: Bedside Glucose 236 mg/dL (74-106)
--- NOTE | 2022-02-24 14:31 | NURSING ---
1335-report called to wvm to rn with no questions voiced. daughter in and all belongings sent with daughter. tele and iv's dc'd for dc.
== END 2022-02-24 13:29 | disposition skilled nursing facility (03) | DRG 377 ==
LOC: ED 16:02 → PCU 16:14
PROVIDERS: Anesthesiology; Internal Medicine Gastroenterology; Admitting Provider Internal Medicine; Emergency Provider Physician Assistant; PCP Family Medicine Geriatric Medicine; Visit Provider Student in an Organized Health Care Education/Training Program
PROC: 0DJ08ZZ Inspection of Upper Intestinal Tract, Via Natural or Artificial Opening Endoscopic (ICD-10-PCS; CPT 43235; principal; 2022-02-23 11:25)
DX: K31.811 Angiodysplasia of stomach and duodenum with bleeding (principal); G93.41 Metabolic encephalopathy; B37.81 Candidal esophagitis; D62 Acute posthemorrhagic anemia; L97.922 Non-pressure chronic ulcer of unspecified part of left lower leg with fat layer exposed; E11.649 Type 2 diabetes mellitus with hypoglycemia without coma; D63.8 Anemia in other chronic diseases classified elsewhere; E11.22 Type 2 diabetes mellitus with diabetic chronic kidney disease; Z79.4 Long term (current) use of insulin; E11.51 Type 2 diabetes mellitus with diabetic peripheral angiopathy without gangrene; E11.42 Type 2 diabetes mellitus with diabetic polyneuropathy; E11.622 Type 2 diabetes mellitus with other skin ulcer; I77.9 Disorder of arteries and arterioles, unspecified; N18.30 Chronic kidney disease, stage 3 unspecified; M35.9 Systemic involvement of connective tissue, unspecified; I12.9 Hypertensive chronic kidney disease with stage 1 through stage 4 chronic kidney disease, or unspecified chronic kidney disease; I25.10 Atherosclerotic heart disease of native coronary artery without angina pectoris; E78.00 Pure hypercholesterolemia, unspecified; I16.0 Hypertensive urgency; E78.5 Hyperlipidemia, unspecified; D50.9 Iron deficiency anemia, unspecified; F41.9 Anxiety disorder, unspecified; Z66 Do not resuscitate; Z51.5 Encounter for palliative care; F32.A Depression, unspecified; Z86.73 Personal history of transient ischemic attack (TIA), and cerebral infarction without residual deficits; Z99.3 Dependence on wheelchair; Z79.02 Long term (current) use of antithrombotics/antiplatelets; Z79.82 Long term (current) use of aspirin; Z95.1 Presence of aortocoronary bypass graft; Z95.5 Presence of coronary angioplasty implant and graft
CPT/HCPCS: 36415; 70450; 70551; 71045; 80048; 80053; 81001; 82274; 82962; 83036; 83880; 84443; 84484; 85014; 85018; 85025; 85610; 85730; 86850; 86900; 86901; 86920; 86922; 87426; 88305; 88312; 93005; 97163; 97165; 99285; J7040; P9016; A4216; J2405

== ENCOUNTER → 2022-03-02 | Outpatient (REF) | payer MEDICARE, MEDICAID, SELFPAY ==
[2022-03-02 09:08] LABS: Color, Urine Yellow (Yellow); Glucose, Dipstick Normal (Normal); Ketone-Dipstick Negative (Negative); Leukocyte Esterase-Dipstick 100 /ul (Negative); Nitrite-Dipstick Negative (Negative); Occult Blood-Urine 50 /ul (Negative); Protein-Dipstick 100 mg/dl (Negative); Specific Gravity, Urine 1.015 (1.002-1.030); Urine Bilirubin Dipstick Negative (Negative); Urine Clarity Sl. Cloudy (Clear); Urine Urobilinogen Normal (Normal)
[2022-03-02 09:14] LABS: Absolute Lymphocyte Count 0.53 X10^3/uL (0.83-4.51); Absolute Neutrophil Count 6.8 X10^3/uL (2.0-7.7); Hematocrit 25.6 % (37-47); Hemoglobin 8.7 g/dL (12.0-15.0); Lymphocyte # 0.53 X10^3/ul (0.83-4.51); Lymphocyte % 6.8 % (19-41); Mean Corpuscular Hgb 30.3 pg (27.0-32.0); Mean Corpuscular Volume 89.2 fL (81-99); Mean Platelet Vol. 11.4 fl (6.2-12.0); Monocyte# 0.45 X10^3/uL; Monocyte% 5.8 % (0-10); NRBC Flagged by Analyzer 0 % (0-5); Neutrophil # 6.75 X10^3/uL (2.7-7.7); Neutrophil % 86.9 % (47-70); POSITIVE DIFFERENTIAL YES; Platelet Count 168 K/mm3 (150-450); RBC Distribution Width CV 15.1 % (11.6-14.6); RBC Distribution Width SD 49.1 fl (35.1-43.9); Red Blood Count 2.87 M/mm3 (4.2-5.4); White Blood Count 7.8 K/mm3 (4.4-11.0)
[2022-03-02 09:15] LABS: Differential Indicated SCAN CRITERIA MET
[2022-03-02 09:25] LABS: Anion Gap 6 (5-15); BUN 77 mg/dL (7-18); BUN/Creat Ratio 37.2 RATIO (10-20); Calcium,Total 6.9 mg/dL (8.5-10.1); Chloride 106 mmol/L (98-107); Creatinine, Serum 2.07 mg/dL (0.55-1.02); EST Glomerular Filtration Rate 25 mL/min (>60); Est Glom Filt Rate - Afr Amer 30 mL/min (>60); Glucose 279 mg/dL (74-106); Potassium 4.2 mmol/L (3.5-5.1); Sodium Level 135 mmol/L (136-145)
== END | disposition home or self-care (01) ==
LOC: OLS.WHLEAS 04:00
PROVIDERS: PCP Family Medicine Geriatric Medicine; Referring Provider Family Medicine; Visit Provider Family Medicine
DX: E11.628 Type 2 diabetes mellitus with other skin complications (principal); I69.354 Hemiplegia and hemiparesis following cerebral infarction affecting left non-dominant side; E11.42 Type 2 diabetes mellitus with diabetic polyneuropathy
CPT/HCPCS: 36415; 80048; 81002; 85025; 87077; 87086; 87088; 87186

== ENCOUNTER 2022-03-04 14:00 | Outpatient (RCR) | payer MEDICARE, MEDICAID, SELFPAY ==
[2022-02-06 00:33] VITALS: BP 195/72; PULSE 57; RESP 20; TEMP 36.2; BMI 36.6
[2022-02-11 14:56] VITALS: BP 163/51; PULSE 56; RESP 16; TEMP 36.1; BMI 36.6
--- NOTE | 2022-02-11 15:59 | PN.PCM_ITS ---
History of Present Illness Date of Service: 02/11/22 Chief Complaint: Left lower extremity ulcers History of Wound: This 72-year-old female following up for left chronic leg ulcer. She also recently had vascular surgery intervention and continues on Plavix. She is taking nutritional supplementation. She is with her grand daughter today. The granddaughter has been trying to help her better offload her left leg ulcer site however she does lay on this side while watching TV everyday. This is going well so far. She missed her last visit due to an accident involving her falling while trying to get into the car with a family member that does not usually help transport her. She did bump her left foot in the process and has some scabs on her amputation stump site. She denies fever, chill, nausea, vomiting. Progress of Wound: Improving leg Objective Data Objective Data Vital Signs: Vital Signs Temp Pulse Resp BP 97 F L 56 L 16 163/51 H 02/11/22 14:56 02/11/22 14:56 02/11/22 14:56 02/11/22 14:56 Oxygen Delivery Method Room Air Weight: 90.904 kg Body Mass Index (BMI) 36.6 Physical Exam Extremity Extremity Narrative: Left foot Transmetatarsal amputation. There is healed anterior ankle /lower leg ulcer site with full epithelialization. Skin remodeling progression is noted. the lateral left leg ulcer granular base noted now with reduced cluster size and ulceration depths. there is no longer any e schar, hypergranular, or deep tissue exposure. There is no crepitus, no visible abscess noted to the left foot, ankle or leg. There is evidence of abrasions and excoriations to the transmetatarsal amputation stump site without any distinct skin discontinuity infection or wound. Decreased sensation to the left foot c/w chronic peripheral neuropathy, no evidence of acute ischemia to the bilateral foot or ankle, no evidence of charcot neuroarthropathy or compartment syndrome either. Reduced palpable pulse left. Lower extremity edema mild Debridement Note Debridement Note Wound debrided: Lateral left leg Wound Grade/Stage: 1 Type of Debridement: Excisional debridement Anesthesia Used: 4% Lidocaine Solution Depth: in the subcutaneous layer Percentage of wound debrided: 100 Instrument Used: #15 blade Tissue Removed: fibrous, devitalized subcutaneous, biofilm, slough Severity: Fat Layer Exposed Amount of bleeding with debridement: Mild Bleeding Controlled with: Pressure Patient tolerated procedure: Patient tolerated procedure well Post-Debridement Measurements and Additional Note: Post-Debridement Measurements/Treatment - Nurse 1 - General Ulcer Assessment Start: 02/11/22 14:56 Freq: Status: Active Protocol: MARILIA Activity Type Activity Date Activity User E-Sign Co-Sign Detail Recorded Client Recorded Date Recorded By Document 02/11/22 14:56 [facility] [id number] 02/11/22 15:13 [facility] 02/11/22 14:56 WC - Today's Visit Information Type of service Follow-up Visit (Physician/SHOP HAND ) Arrival Mode Wheelchair Transfer Assistance Manual Transfer Assist (Other) GR LIANA TRANSFERS Patient Identification Verified (Name & Yes ) Patient Requires Transmission-Based No Precautions Height and Weight Body Mass Index (BMI) 36.6 BMI Classification Obese Vital Signs Temperature (97.8 F-99.1 F) 97 F L Temperature Source Temporal Pulse Rate (60-100) 56 L Pulse Location Monitor Respiratory Rate (12-18) 16 Respiratory rate source Observation Oxygen Delivery Method Room Air Blood Pressure (90/60-120/80) 163/51 H Blood Pressure Mean (mm Hg) 88 Source Monitor Position Supine Blood Pressure Location Right Arm History Since Last Visit- (Skip if this is Patient's initial visit) Have you changed medications since your No last visit? Any new allergies or adverse reactions No Had a fall/change in ADL's that may No increase risk of falls Signs or symptoms of abuse and/or No neglect since last visit Have you been in the hospital since your No last visit? Has dressing in place as prescribed Yes Has compression in place as prescribed Yes Has offloadiing in place as prescribed Yes Experienced any changes in pain level or No management Pain Scale: 0-10 Numeric Is Patient Pain Free? Yes - Nurse 1 - General Ulcer Measurement Start: 02/11/22 14:56 Freq: Status: Active Protocol: Activity Type Activity Date Activity User E-Sign Co-Sign Detail Recorded Client Recorded Date Recorded By Document 02/11/22 14:56 [facility] [id number] 02/11/22 15:13 [facility] 02/11/22 14:56 Wound Center Nurse 1 3. L lateral LE -Combined with other wound No -Current Size (cm) - Length 3 -Current Size (cm) - Width 1 -Current Size (cm) - Depth 0.4 -Total Square Cm 3 -Photo Taken No -Epithelialization Small 1-33% -Tunneling No -Undermining/Tunneling No -Circular Undermining No -Exudate Amt Medium -Exudate Type Serosanguineous -Wound Margin Distinct, Outline Attached -Granulation Amt Small (1-33%) -Granulation Quality Pale -Slough/Fibrin Yes -Necrosis Amt Large (67-100%) -Necrotic Tissue Type Adherent Slough -Texture (Frances-wound Skin Appearance) Assessed, Scarring -Moisture (Frances-wound Skin Appearance) Assessed,Dry/ Scaly -Color (Frances-wound Skin Appearance) Assessed -Temperature (Frances-wound Skin No Abnormality Appearance) (Pt Warm) -Tenderness on Palpation (Frances-wound Yes Skin Appearance) -Ulcer Cleansing Soap and Water -Foul Odor after Cleansing No -Anesthetic Used 4% Lidocaine Solution WC - Nurse 2 - General Ulcer CM Notes Start: 02/11/22 14:56 Freq: Status: Active Protocol: Activity Type Activity Date Activity User E-Sign Co-Sign Detail Recorded Client Recorded Date Recorded By Document 02/11/22 15:24 [id number] 02/11/22 15:26 02/11/22 15:24 Wound Center Nurse 2 -Time 15:25 -Correct Patient Yes -Correct Side, Site, Position Yes -Correct Procedure Yes -Procedure Performed Yes -Type of Procedure Debridement -Clinical Debridement Subcutaneous -Tissue Removed Subcutaneous -Post Debridement (cm) - Length 3.1 -Post Debridement (cm) - Width 1 -Post Debridement (cm) - Depth 0.4 -Total Square (Post) (cm) 3.1 -Area of Debridement (cm) - Length 3.1 -Area of Debridement (cm) - Width 1.0 -Total Square (Area) (cm) 3.10 -Tunneling No -Undermining/Tunneling No -Circular Undermining No -Wound/Ulcer Outcome Not Healed -Ulcer Cleansing Rinsed/ Irrigated with Saline -Foul Odor after Cleansing No -Bioengineered Tissue Yes -Type of Bioengineered Tissue Epifix -Expiration Date 09/08/26 -Product Lot Number [id number] -Percent Used 100 -Lot number of Saline Used [id number] -Bleeding Controlled with Pressure -Treatment Response Procedure Tolerated Well -Offloading No -Debridement - Subq, 1st 20sq cm No -Apply Skin Sub - 1st 25 sq cm - Legs 1 -Epifix (per sq cm) 4 Pain Scale: 0-10 Numeric Is Patient Pain Free? Yes - Nurse 3 - General Ulcer D/C NN Start: 02/11/22 14:56 Freq: Status: Active Protocol: Activity Type Activity Date Activity User E-Sign Co-Sign Detail Recorded Client Recorded Date Recorded By Document 02/11/22 15:35 [facility] [id number] 02/11/22 15:35 [facility] 02/11/22 15:35 Wound Care Nurse 3 3. L lateral LE -Other Dressing EPIFIX -Primary Dressing Covered/Secured with Dry Gauze & Roll Gauze, Secured with Tape,Other -Other Covering ABD Left -Compression Wrap Alejandro Wrap Treatment Response Procedure Tolerated Well Pain Scale: 0-10 Numeric Is Patient Pain Free? 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: CODE(S): L97.922 - Non-pressure chronic ulcer of unspecified part of left lower leg with fat layer exposed (2) Type 2 diabetes mellitus with diabetic polyneuropathy: CODE(S): E11.42 - Type 2 diabetes mellitus with diabetic polyneuropathy QUALIFIERS: Diabetes mellitus rn long term care insulin use: with long-term use Qualified Code(s): E11.42 - Type 2 diabetes mellitus with diabetic polyneuropathy; 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 Debridement was performed today as noted in the clinical panel to all of the ulcer site. The following work up and care recommendations were made: Dressing: Epi fix, advancing healing product was applied to the lateral left leg ulcer site and was secured with a wound veil and Steri-Strips after verbal consent was obtained. This was applied according standard protocol. Topical local anesthetic was utilized for pain control prior to this debridement. She tolerated this well. A dry dressing was applied with gauze and she is advised to keep a secondary dressing clean, dry, and intact until follow-up visit. It is noted this is a different site to the previously applied epifix product. This is medically necessary. Offload: Continue offloading pillow to take pressure off of the side of her leg; this is going well so far. she has a donut pillow and I recommend the use of a proximal blanket or pillow to offload her central leg ulcer cluster site. Ok to place partial weight to plantar left foot at this time. To avoid excessive ambulation which she is not doing anyways at this time. To avoid direct pressure to the right fifth toe also. Is noted she is wearing soft slippers and this appears to be appropriate. Vascular rearranged her room so she no longer needs to lay on her left side to be which she participates in most of the day. Vascular: She is under the care of Dr. Aguilar, vascular surgeon. On 08-20-21 she had catheterization in place to the anterior tibial artery and a balloon angioplasty performed in the popliteal into the proximal anterior tib. To follow-up as scheduled. Additional intervention is not planned at this time and she reports she followed with Dr. Aguilar this morning who wrote recommended monitoring her staged improvement. To continue on Plavix. Edema: Alejandro wrap applied Infection: This has resolved and her surgical site has also healed. She was previously under the care of infectious disease specialist. Wound cx and surg cx with MRSA, raoultella, citrobacter. Clearance cx with some MRSA and anaerobes. Superficial raoultella was R to cefepime, but surg cx was S and clearance cx was neg for GNR. She was on vanc/meropenem with stop date 09/19/21. There is resolution of local and systemic signs of illness at this time Pain: This is not present because of her neuropathy. Surgically, she had a transmetatarsal amputation and debridement of the ulcers on 08-08-21 at [facility]. Host factors: She is diabetic and her hemoglobin A1c was recently improved to 6.9% (9-30-21). To continue to work with primary care physician on medical management. I recommend nutritional supplementation optimize healing. She is on Vlad and Glucerna. It is also noted she is on a new course of prednisone for her chest and upper extremity dermatitis with subsequent wound formation. To complete the course as advised by her primary care physician. She understands prednisone may slow wound healing if using a chronic manner and this will be monitored. She did compromise her left amputation stump site when she fell during transport last week. She is advised to take caution and her family is also in the process of getting formal transportation set up for her which I encouraged. I answered all the patient's questions. To return to the wound healing center in 1 week or call sooner if the patient has any questions or concerns.
[2022-03-04 14:15] VITALS: BP 170/66; PULSE 51; TEMP 36.3; BMI 36.6
--- NOTE | 2022-03-04 14:52 | PCM.WC.PN ---
History of Present Illness Date of Service: 03/04/22 Chief Complaint: Left lower extremity ulcers History of Wound: This 72-year-old female following up for left chronic leg ulcer. She also recently had vascular surgery intervention and continues on Plavix. She is taking nutritional supplementation. She is with her grand daughter today. She denies fever, chill, nausea, vomiting. She now resides in a prison facility and presents in a wheelchair today. Progress of Wound: Improving leg Objective Data Objective Data Vital Signs: Vital Signs Temp Pulse Resp BP 97.4 F L 51 L 16 170/66 H 03/04/22 14:15 03/04/22 14:15 02/11/22 14:56 03/04/22 14:15 Oxygen Delivery Method Room Air Weight: 90.904 kg Body Mass Index (BMI) 36.6 Physical Exam Extremity Extremity Narrative: Left foot Transmetatarsal amputation. There is healed anterior ankle /lower leg ulcer site with full epithelialization. Skin remodeling progression is noted. the lateral left leg ulcer granular base noted now with reduced to 1 site instead of a prior cluster. there is no longer any eschar, hypergranular, or deep tissue exposure. There is no crepitus, no visible abscess noted to the left foot, ankle or leg. There is evidence of abrasions and excoriations to the transmetatarsal amputation stump site without any distinct skin discontinuity infection or wound. Decreased sensation to the left foot c/w chronic peripheral neuropathy, no evidence of acute ischemia to the bilateral foot or ankle, no evidence of charcot neuroarthropathy or compartment syndrome either. Reduced palpable pulse left. Lower extremity edema mild Debridement Note Debridement Note Wound debrided: Lateral left leg Wound Grade/Stage: 1 Type of Debridement: Excisional debridement Anesthesia Used: 4% Lidocaine Solution Depth: in the subcutaneous layer Percentage of wound debrided: 100 Instrument Used: #15 blade Tissue Removed: fibrous, devitalized subcutaneous, biofilm, slough Severity: Fat Layer Exposed Amount of bleeding with debridement: Mild Bleeding Controlled with: Pressure Patient tolerated procedure: Patient tolerated procedure well Post-Debridement Measurements and Additional Note: Post-Debridement Measurements/Treatment SETH - Nurse 1 - General Ulcer Assessment Start: 02/11/22 14:56 Freq: Status: Active Protocol: MARILIA Activity Type Activity Date Activity User E-Sign Co-Sign Detail Recorded Client Recorded Date Recorded By Document 02/11/22 14:56 [facility] [id number] 02/11/22 15:13 [facility] Document 03/04/22 14:15 [id number] 03/04/22 14:17 KR 02/11/22 03/04/22 14:56 14:15 - Today's Visit Information Type of service Follow-up Visit Follow-up Visit (Physician/[employer] (Physician/[employer] ) ) Arrival Mode Wheelchair Ambulatory Transfer Assistance Manual Transfer Assist (Other) GR LIANA TRANSFERS Patient Identification Verified (Name & Yes Yes ) Patient Requires Transmission-Based No Precautions Height and Weight Body Mass Index (BMI) 36.6 36.6 BMI Classification Obese Obese Vital Signs Temperature (97.8 F-99.1 F) 97 F L 97.4 F L Temperature Source Temporal Temporal Pulse Rate (60-100) 56 L 51 L Pulse Location Monitor Monitor Respiratory Rate (12-18) 16 Respiratory rate source Observation Oxygen Delivery Method Room Air Blood Pressure (90/60-120/80) 163/51 H 170/66 H Blood Pressure Mean (mm Hg) 88 100 Source Monitor Monitor Position Supine Sitting Blood Pressure Location Right Arm Left Arm History Since Last Visit- (Skip if this is Patient's initial visit) Have you changed medications since your No No last visit? Any new allergies or adverse reactions No No Had a fall/change in ADL's that may No No increase risk of falls Signs or symptoms of abuse and/or No No neglect since last visit Have you been in the hospital since your No No last visit? Has dressing in place as prescribed Yes Yes Has compression in place as prescribed Yes N/A Has offloadiing in place as prescribed Yes N/A Experienced any changes in pain level or No No management Pain Scale: 0-10 Numeric Is Patient Pain Free? Yes Yes - Nurse 1 - General Ulcer Measurement Start: 02/11/22 14:56 Freq: Status: Active Protocol: Activity Type Activity Date Activity User E-Sign Co-Sign Detail Recorded Client Recorded Date Recorded By Document 02/11/22 14:56 [facility] [id number] 02/11/22 15:13 [facility] Document 03/04/22 14:15 KR [id number] 03/04/22 14:17 KR 02/11/22 03/04/22 14:56 14:15 Wound Center Nurse 1 3. L lateral LE -Combined with other wound No -Current Size (cm) - Length 3 1 -Current Size (cm) - Width 1 0.5 -Current Size (cm) - Depth 0.4 0.3 -Total Square Cm 3 0.5 -Photo Taken No -Epithelialization Small 1-33% -Tunneling No -Undermining/Tunneling No -Circular Undermining No -Exudate Amt Medium Small -Exudate Type Serosanguineous Serosanguineous -Wound Margin Distinct, Distinct, Outline Outline Attached Attached -Granulation Amt Small (1-33%) Large (67-100%) -Granulation Quality Pale Red -Slough/Fibrin Yes -Necrosis Amt Large (67-100%) Large (67-100%) -Necrotic Tissue Type Adherent Slough Adherent Slough -Texture (Frances-wound Skin Appearance) Assessed, Assessed, Scarring Scarring -Moisture (Frances-wound Skin Appearance) Assessed,Dry/ Assessed,Dry/ Scaly Scaly -Color (Frances-wound Skin Appearance) Assessed No Abnormality, Assessed -Temperature (Frances-wound Skin No Abnormality No Abnormality Appearance) (Pt Warm) (Pt Warm) -Tenderness on Palpation (Frances-wound Yes No Skin Appearance) -Ulcer Cleansing Soap and Water Rinsed/ Irrigated with Saline -Foul Odor after Cleansing No No -Anesthetic Used 4% Lidocaine 5% Lidocaine Solution Gel WC - Nurse 2 - General Ulcer CM Notes Start: 02/11/22 14:56 Freq: Status: Active Protocol: Activity Type Activity Date Activity User E-Sign Co-Sign Detail Recorded Client Recorded Date Recorded By Document 02/11/22 15:24 [id number] 02/11/22 15:26 Document 03/04/22 14:36 [id number] 03/04/22 14:39 02/11/22 03/04/22 15:24 14:36 Wound Center Nurse 2 3. L lateral LE -Time 15:25 14:37 -Correct Patient Yes Yes -Correct Side, Site, Position Yes Yes -Correct Procedure Yes Yes -Procedure Performed Yes Yes -Type of Procedure Debridement Debridement -Clinical Debridement Subcutaneous Subcutaneous -Tissue Removed Subcutaneous Subcutaneous -Post Debridement (cm) - Length 3.1 2.5 -Post Debridement (cm) - Width 1 1.0 -Post Debridement (cm) - Depth 0.4 0.3 -Total Square (Post) (cm) 3.1 2.50 -Area of Debridement (cm) - Length 3.1 2.5 -Area of Debridement (cm) - Width 1.0 1.0 -Total Square (Area) (cm) 3.10 2.50 -Tunneling No No -Undermining/Tunneling No No -Circular Undermining No No -Wound/Ulcer Outcome Not Healed Not Healed -Ulcer Cleansing Rinsed/ Rinsed/ Irrigated with Irrigated with Saline Saline -Foul Odor after Cleansing No No -Bioengineered Tissue Yes Yes -Type of Bioengineered Tissue Epifix Epifix -Expiration Date 09/08/26 09/08/26 -Product Lot Number [id number] -Percent Used 100 100 -Lot number of Saline Used [id number] -Bleeding Controlled with Pressure Pressure -Treatment Response Procedure Procedure Tolerated Well Tolerated Well -Offloading No No -Debridement - Subq, 1st 20sq cm No No -Apply Skin Sub - 1st 25 sq cm - Legs 1 1 -Epifix (per sq cm) 4 4 Pain Scale: 0-10 Numeric Is Patient Pain Free? Yes Yes - Nurse 3 - General Ulcer D/C NN Start: 02/11/22 14:56 Freq: Status: Active Protocol: Activity Type Activity Date Activity User E-Sign Co-Sign Detail Recorded Client Recorded Date Recorded By Document 02/11/22 15:35 [facility] [id number] 02/11/22 15:35 [facility] Document 03/04/22 14:48 [facility] [id number] 03/04/22 14:49 [facility] 02/11/22 03/04/22 15:35 14:48 Wound Care Nurse 3 3. L lateral LE -Other Dressing EPIFIX EPIFIX -Primary Dressing Covered/Secured with Dry Gauze & Dry Gauze & Roll Gauze, Roll Gauze, Secured with Secured with Tape,Other Tape -Other Covering ABD ABD Left -Compression Wrap Alejandro Wrap Alejandro Wrap Treatment Response Procedure Procedure Tolerated Well Tolerated Well Pain Scale: 0-10 Numeric Is Patient Pain Free? 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: CODE(S): L97.922 - Non-pressure chronic ulcer of unspecified part of left lower leg with fat layer exposed (2) Type 2 diabetes mellitus with diabetic polyneuropathy: CODE(S): E11.42 - Type 2 diabetes mellitus with diabetic polyneuropathy QUALIFIERS: Diabetes mellitus lobsterman insulin use: with mcfp use Qualified Code(s): E11.42 - Type 2 diabetes mellitus with diabetic polyneuropathy; Z79.4 - care home (current) use of insulin (3) PAD (peripheral artery disease): CODE(S): I73.9 - Peripheral vascular disease, unspecified (4) Delayed wound healing: CODE(S): T14.8 - Other injury of unspecified body region (5) Localized edema: CODE(S): R60.0 - Localized edema (6) Malnutrition: CODE(S): E46 - Unspecified protein-calorie malnutrition QUALIFIERS: Malnutrition type: protein-calorie malnutrition Protein-calorie malnutrition severity: moderate Qualified Code(s): E44.0 - Moderate protein-calorie malnutrition PLAN: I reviewed and discussed her case today. Debridement was performed today as noted in the clinical panel to all of the ulcer site. The following work up and care recommendations were made: Dressing: Epi fix, advancing healing product was applied to the lateral left leg ulcer site and was secured with a wound veil and Steri-Strips after verbal consent was obtained. This was applied according standard protocol. Topical local anesthetic was utilized for pain control prior to this debridement. She tolerated this well. A dry dressing was applied with gauze and she is advised to keep a secondary dressing clean, dry, and intact until follow-up visit. It is noted this is a different site to the previously applied epifix product. This is medically necessary. Offload: Continue offloading pillow to take pressure off of the side of her leg; this is going well so far. she has a donut pillow and I recommend the use of a proximal blanket or pillow to offload her central leg ulcer cluster site. Ok to place partial weight to plantar left foot at this time. To avoid excessive ambulation which she is not doing anyways at this time. Vascular: She is under the care of Dr. Aguilar, vascular surgeon. On 08-20-21 she had catheterization in place to the anterior tibial artery and a balloon angioplasty performed in the popliteal into the proximal anterior tib. To follow-up as scheduled. Additional intervention is not planned at this time and she reports she followed with Dr. Aguilar this morning who wrote recommended monitoring her staged improvement. To continue on Plavix. Edema: Alejandro wrap applied Infection: This has resolved and her surgical site has also healed. She was previously under the care of infectious disease specialist. Wound cx and surg cx with MRSA, raoultella, citrobacter. Clearance cx with some MRSA and anaerobes. Superficial raoultella was R to cefepime, but surg cx was S and clearance cx was neg for GNR. She was on vanc/meropenem with stop date 09/19/21. There is resolution of local and systemic signs of illness at this time Pain: This is not present because of her neuropathy. Surgically, she had a transmetatarsal amputation and debridement of the ulcers on 08-08-21 at [facility]. Host factors: She is diabetic and her hemoglobin A1c was recently improved to 6.9% (08-07-21). To continue to work with primary care physician on medical management. I recommend nutritional supplementation optimize healing. She is on Vlad and Glucerna. It is also noted she is on a new course of prednisone for her chest and upper extremity dermatitis with subsequent wound formation. To complete the course as advised by her primary care physician. She understands prednisone may slow wound healing if using a chronic manner and this will be monitored. She resides in a prison facility at this time. I answered all the patient's questions. To return to the wound healing center in 1 week or call sooner if the patient has any questions or concerns.
== END 2022-03-07 23:59 | disposition home or self-care (01) ==
LOC: WC 14:00
PROVIDERS: PCP Family Medicine Geriatric Medicine; Visit Provider Podiatrist
DX: E11.622 Type 2 diabetes mellitus with other skin ulcer (principal); E11.51 Type 2 diabetes mellitus with diabetic peripheral angiopathy without gangrene; L97.922 Non-pressure chronic ulcer of unspecified part of left lower leg with fat layer exposed; L97.322 Non-pressure chronic ulcer of left ankle with fat layer exposed; E44.0 Moderate protein-calorie malnutrition; E11.42 Type 2 diabetes mellitus with diabetic polyneuropathy; Z79.4 Long term (current) use of insulin; R60.0 Localized edema
CPT/HCPCS: 15271; Q4186

== ENCOUNTER → 2022-03-09 | Outpatient (REF) | payer MEDICARE, MEDICAID, SELFPAY ==
[2022-03-09 10:10] LABS: Absolute Lymphocyte Count 0.72 X10^3/uL (0.83-4.51); Absolute Neutrophil Count 7.9 X10^3/uL (2.0-7.7); Basophil# 0.01 X10^3/uL; Basophil% 0.1 % (0-1); Eosinophil# 0.01 X10^3/uL; Eosinophils% 0.1 % (0-5); Hematocrit 26.8 % (37-47); Hemoglobin 8.9 g/dL (12.0-15.0); Lymphocyte # 0.72 X10^3/ul (0.83-4.51); Lymphocyte % 7.7 % (19-41); Mean Corp Hgb Conc 33.2 g/dL (32-36); Mean Corpuscular Hgb 30.4 pg (27.0-32.0); Mean Corpuscular Volume 91.5 fL (81-99); Mean Platelet Vol. 11.1 fl (6.2-12.0); Monocyte# 0.58 X10^3/uL; Monocyte% 6.2 % (0-10); NRBC Flagged by Analyzer 0 % (0-5); Neutrophil # 7.89 X10^3/uL (2.7-7.7); Neutrophil % 84.5 % (47-70); Platelet Count 190 K/mm3 (150-450); RBC Distribution Width CV 14.8 % (11.6-14.6); Red Blood Count 2.93 M/mm3 (4.2-5.4); White Blood Count 9.3 K/mm3 (4.4-11.0)
[2022-03-09 10:43] LABS: Anion Gap 6 (5-15); BUN 101 mg/dL (7-18); BUN/Creat Ratio 42.4 RATIO (10-20); Calcium,Total 7.7 mg/dL (8.5-10.1); Chloride 108 mmol/L (98-107); Creatinine, Serum 2.38 mg/dL (0.55-1.02); EST Glomerular Filtration Rate 21 mL/min (>60); Est Glom Filt Rate - Afr Amer 26 mL/min (>60); Glucose 204 mg/dL (74-106); Potassium 4.9 mmol/L (3.5-5.1); Sodium Level 138 mmol/L (136-145)
== END | disposition home or self-care (01) ==
LOC: OLS.WHLEAS 05:55
PROVIDERS: PCP Family Medicine Geriatric Medicine; Visit Provider Family Medicine
DX: E11.628 Type 2 diabetes mellitus with other skin complications (principal); I69.354 Hemiplegia and hemiparesis following cerebral infarction affecting left non-dominant side; E11.42 Type 2 diabetes mellitus with diabetic polyneuropathy
CPT/HCPCS: 36415; 80048; 85025

== ENCOUNTER → 2022-03-23 | Outpatient (REF) | payer MEDICARE, MEDICAID, SELFPAY ==
[2022-03-23 09:05] LABS: Absolute Lymphocyte Count 0.95 X10^3/uL (0.83-4.51); Absolute Neutrophil Count 5.6 X10^3/uL (2.0-7.7); Basophil# 0.01 X10^3/uL; Basophil% 0.1 % (0-1); Eosinophil# 0.03 X10^3/uL; Eosinophils% 0.4 % (0-5); Hematocrit 26.3 % (37-47); Hemoglobin 8.5 g/dL (12.0-15.0); Lymphocyte # 0.95 X10^3/ul (0.83-4.51); Lymphocyte % 13.4 % (19-41); Mean Corp Hgb Conc 32.3 g/dL (32-36); Mean Corpuscular Hgb 30.6 pg (27.0-32.0); Mean Corpuscular Volume 94.6 fL (81-99); Mean Platelet Vol. 11.2 fl (6.2-12.0); Monocyte# 0.46 X10^3/uL; Monocyte% 6.5 % (0-10); NRBC Flagged by Analyzer 0 % (0-5); Platelet Count 152 K/mm3 (150-450); RBC Distribution Width CV 14.9 % (11.6-14.6); RBC Distribution Width SD 51.4 fl (35.1-43.9); Red Blood Count 2.78 M/mm3 (4.2-5.4); White Blood Count 7.1 K/mm3 (4.4-11.0)
[2022-03-23 09:33] LABS: Anion Gap 9 (5-15); BUN 80 mg/dL (7-18); BUN/Creat Ratio 48.8 RATIO (10-20); Calcium,Total 7.7 mg/dL (8.5-10.1); Chloride 107 mmol/L (98-107); Creatinine, Serum 1.64 mg/dL (0.55-1.02); EST Glomerular Filtration Rate 33 mL/min (>60); Est Glom Filt Rate - Afr Amer 40 mL/min (>60); Glucose 64 mg/dL (74-106); Potassium 4.4 mmol/L (3.5-5.1); Sodium Level 139 mmol/L (136-145)
== END | disposition home or self-care (01) ==
LOC: OLS.WHLEAS 05:00
PROVIDERS: PCP Family Medicine Geriatric Medicine; Referring Provider Family Medicine; Visit Provider Family Medicine
DX: I69.354 Hemiplegia and hemiparesis following cerebral infarction affecting left non-dominant side (principal); E11.628 Type 2 diabetes mellitus with other skin complications; E11.42 Type 2 diabetes mellitus with diabetic polyneuropathy
CPT/HCPCS: 36415; 80048; 85025

== ENCOUNTER → 2022-03-26 | Outpatient (REF) | payer MEDICARE, MEDICAID, SELFPAY ==
[2022-03-26 08:48] LABS: BUN 85 mg/dL (7-18); BUN/Creat Ratio 47.2 RATIO (10-20); Calcium,Total 7.6 mg/dL (8.5-10.1); Chloride 109 mmol/L (98-107); EST Glomerular Filtration Rate 29 mL/min (>60); Est Glom Filt Rate - Afr Amer 36 mL/min (>60); Ferritin 211 ng/mL (8-252); Glucose 198 mg/dL (74-106); Iron 42 ug/dL (50-170); Iron Binding Capacity,Total 222 ug/dL (250-450); PERCENT IRON SATURATION 18.9 % (15.0-55.0); Phosphorus 3.2 mg/dL (2.5-4.9); Potassium 4.6 mmol/L (3.5-5.1); Sodium Level 138 mmol/L (136-145)
[2022-03-26 08:53] LABS: PTHIN 293.9 pg/mL (18.4-80.1)
== END | disposition home or self-care (01) ==
LOC: OLS.WHLEAS 05:00
PROVIDERS: PCP Family Medicine Geriatric Medicine; Visit Provider Family Medicine
DX: N18.30 Chronic kidney disease, stage 3 unspecified (principal); I69.354 Hemiplegia and hemiparesis following cerebral infarction affecting left non-dominant side; E11.628 Type 2 diabetes mellitus with other skin complications; E11.42 Type 2 diabetes mellitus with diabetic polyneuropathy; E11.22 Type 2 diabetes mellitus with diabetic chronic kidney disease; D50.9 Iron deficiency anemia, unspecified
CPT/HCPCS: 36415; 80069; 82728; 83540; 83550; 83970

== ENCOUNTER 2022-04-01 15:15 | Outpatient (RCR) | payer MEDICARE, MEDICAID, SELFPAY ==
[2022-03-08 00:31] VITALS: BP 170/66; PULSE 51; RESP 16; TEMP 36.3; BMI 36.6
[2022-03-11 14:10] VITALS: BP 122/99; PULSE 58; RESP 20; TEMP 36.6; BMI 36.6
--- NOTE | 2022-03-11 15:44 | PCM.WC.PN ---
History of Present Illness Date of Service: 03/11/22 Chief Complaint: Left lower extremity ulcers History of Wound: This 72-year-old female following up for left chronic leg ulcer. She also recently had vascular surgery intervention and continues on Plavix. She is taking nutritional supplementation. She is with a staff member from the detention facility she is residing in at this time. She denies fever, chill, nausea, vomiting. There is a new ulcer. She also has increased swelling of the lower extremities. Progress of Wound: Improving distal (left) New proximal leg ulcer (left) Objective Data Objective Data Vital Signs: Vital Signs Temp Pulse Resp BP 97.8 F 58 L 20 H 122/99 H 03/11/22 14:10 03/11/22 14:10 03/11/22 14:10 03/11/22 14:10 Weight: 90.904 kg Body Mass Index (BMI) 36.6 Physical Exam Extremity Extremity Narrative: Left foot Transmetatarsal amputation. There is healed anterior ankle /lower leg ulcer site with full epithelialization. Skin remodeling progression is noted. the lateral left leg ulcer granular base noted with reduced depth. there is no longer any eschar, hypergranular, or deep tissue exposure. There is no crepitus, no visible abscess noted to the left foot, ankle or leg. There is also a new left lateral proximal ulcer that aligns perfectly with a knob on her wheelchair and I am concerned about this pressure point. Decreased sensation to the left foot c/w chronic peripheral neuropathy, no evidence of acute ischemia to the bilateral foot or ankle, no evidence of charcot neuroarthropathy or compartment syndrome either. Reduced palpable pulse left. Lower extremity edema mild Debridement Note Debridement Note Wound debrided: Left lateral leg proximal and distal Wound Grade/Stage: 1, 1 Type of Debridement: Excisional debridement Anesthesia Used: 4% Lidocaine Solution Depth: in the subcutaneous layer Percentage of wound debrided: 100 Instrument Used: #15 blade Tissue Removed: fibrous, devitalized subcutaneous, biofilm, slough Severity: Fat Layer Exposed Amount of bleeding with debridement: Mild Bleeding Controlled with: Pressure Patient tolerated procedure: Patient tolerated procedure well Post-Debridement Measurements and Additional Note: Post-Debridement Measurements/Treatment SETH - Nurse 1 - General Ulcer Assessment Start: 03/11/22 14:10 Freq: Status: Active Protocol: MARILIA Activity Type Activity Date Activity User E-Sign Co-Sign Detail Recorded Client Recorded Date Recorded By Document 03/11/22 14:10 DL [id number] 03/11/22 14:20 DL 03/11/22 14:10 WC - Today's Visit Information Type of service Follow-up Visit (Physician/CEMENT FINISHER HELPER ) Arrival Mode Wheelchair Transfer Assistance None Patient Identification Verified (Name & Yes ) Patient Requires Transmission-Based No Precautions Finger Stick Blood Sugar(mg/dl) (if 167 indicated): Blood Sugar Stated by Patient Height and Weight Body Mass Index (BMI) 36.6 BMI Classification Obese Vital Signs Temperature (97.8 F-99.1 F) 97.8 F Temperature Source Temporal Pulse Rate (60-100) 58 L Pulse Location Monitor Respiratory Rate (12-18) 20 H Respiratory rate source Observation Blood Pressure (90/60-120/80) 122/99 H Blood Pressure Mean (mm Hg) 106 Source Monitor History Since Last Visit- (Skip if this is Patient's initial visit) Have you changed medications since your No last visit? Any new allergies or adverse reactions No Had a fall/change in ADL's that may No increase risk of falls Signs or symptoms of abuse and/or No neglect since last visit Have you been in the hospital since your No last visit? Has dressing in place as prescribed Yes Has compression in place as prescribed Yes Has offloadiing in place as prescribed Yes Experienced any changes in pain level or No management Pain Scale: 0-10 Numeric Is Patient Pain Free? Yes - Nurse 1 - General Ulcer Measurement Start: 03/11/22 14:10 Freq: Status: Active Protocol: Activity Type Activity Date Activity User E-Sign Co-Sign Detail Recorded Client Recorded Date Recorded By Document 03/11/22 14:10 DL [id number] 03/11/22 14:20 DL 03/11/22 14:10 Wound Center Nurse 1 3. L lateral LE -Current Size (cm) - Length 16.6 -Current Size (cm) - Width 1.8 -Current Size (cm) - Depth 0.2 -Total Square Cm 29.88 -Photo Taken No -Exudate Amt Medium -Exudate Type Serosanguineous -Wound Margin Distinct, Outline Attached -Granulation Amt Medium (34-66%) -Granulation Quality Red -Necrosis Amt Medium (34-66%) -Necrotic Tissue Type Adherent Slough -Structure Exposed N/A -Texture (Frances-wound Skin Appearance) Localized Edema ,Scarring -Moisture (Frances-wound Skin Appearance) Dry/Scaly -Color (Frances-wound Skin Appearance) Hemosiderin Staining -Temperature (Frances-wound Skin No Abnormality Appearance) (Pt Warm) -Tenderness on Palpation (Frances-wound No Skin Appearance) -Ulcer Cleansing Soap and Water -Foul Odor after Cleansing No -Anesthetic Used 5% Lidocaine Gel Right Calf (cm) 37.5 Right Ankle (cm) 18.5 WC - Nurse 2 - General Ulcer CM Notes Start: 03/11/22 14:10 Freq: Status: Active Protocol: Activity Type Activity Date Activity User E-Sign Co-Sign Detail Recorded Client Recorded Date Recorded By Document 03/11/22 14:38 ALFREDO [id number] 03/11/22 14:42 ALFREDO 03/11/22 14:38 Wound Center Nurse 2 5-left superior leg ulcer -Time 14:39 -Correct Patient Yes -Correct Side, Site, Position Yes -Correct Procedure Yes -Procedure Performed Yes -Type of Procedure Debridement -Clinical Debridement Subcutaneous -Tissue Removed Subcutaneous -Post Debridement (cm) - Length 2.5 -Post Debridement (cm) - Width 0.8 -Post Debridement (cm) - Depth 0.1 -Total Square (Post) (cm) 2.00 -Area of Debridement (cm) - Length 2.5 -Area of Debridement (cm) - Width 0.8 -Total Square (Area) (cm) 2.00 -Tunneling No -Undermining/Tunneling No -Circular Undermining No -Wound/Ulcer Outcome Not Healed -Ulcer Cleansing Rinsed/ Irrigated with Saline -Foul Odor after Cleansing No -Bioengineered Tissue No -Bleeding Controlled with Pressure -Treatment Response Procedure Tolerated Well -Offloading No -Debridement - Subq, 1st 20sq cm Yes 3. L lateral LE -Time 14:39 -Correct Patient Yes -Correct Side, Site, Position Yes -Correct Procedure Yes -Procedure Performed Yes -Type of Procedure Debridement -Clinical Debridement Subcutaneous -Tissue Removed Subcutaneous -Post Debridement (cm) - Length 2.6 -Post Debridement (cm) - Width 1 -Post Debridement (cm) - Depth 0.1 -Total Square (Post) (cm) 2.6 -Area of Debridement (cm) - Length 2.6 -Area of Debridement (cm) - Width 1.0 -Total Square (Area) (cm) 2.60 -Tunneling No -Undermining/Tunneling No -Circular Undermining No -Wound/Ulcer Outcome Not Healed -Ulcer Cleansing Rinsed/ Irrigated with Saline -Foul Odor after Cleansing No -Bioengineered Tissue Yes -Type of Bioengineered Tissue Epifix -Expiration Date 10/08/26 -Product Lot Number [id number] -Percent Used 100 -Lot number of Saline Used [id number] -Bleeding Controlled with Pressure -Treatment Response Procedure Tolerated Well -Offloading No -Debridement - Subq, 1st 20sq cm No -Apply Skin Sub - 1st 25 sq cm - Legs 1 -Epifix (per sq cm) 4 Pain Scale: 0-10 Numeric Is Patient Pain Free? Yes - Nurse 3 - General Ulcer D/C NN Start: 03/11/22 14:10 Freq: Status: Active Protocol: Activity Type Activity Date Activity User E-Sign Co-Sign Detail Recorded Client Recorded Date Recorded By Document 03/11/22 14:52 [facility] [id number] 03/11/22 14:54 [facility] 03/11/22 14:52 Wound Care Nurse 3 5-left superior leg ulcer -Other Dressing EPIFIX -Primary Dressing Covered/Secured with Dry Gauze & Roll Gauze, Secured with Tape -Other Covering DRSG PER DL DIRECTOR [employer] SAL[employer] 3. L lateral LE -Other Dressing EPIFIX -Primary Dressing Covered/Secured with Dry Gauze & Roll Gauze, Secured with Tape -Other Covering DRSG PER DL DIRECTOR [employer] Left -Tubular Bandage Single Layer -Size of Tubigrip Used Size E -Size E ($) 1 Treatment Response Procedure Tolerated Well Pain Scale: 0-10 Numeric Is Patient Pain Free? 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: CODE(S): L97.922 - Non-pressure chronic ulcer of unspecified part of left lower leg with fat layer exposed (2) Type 2 diabetes mellitus with diabetic polyneuropathy: CODE(S): E11.42 - Type 2 diabetes mellitus with diabetic polyneuropathy QUALIFIERS: Diabetes mellitus custodial insulin use: with custodial use Qualified Code(s): E11.42 - Type 2 diabetes mellitus with diabetic polyneuropathy; Z79.4 - fiber heel piece shaper (current) use of insulin (3) PAD (peripheral artery disease): CODE(S): I73.9 - Peripheral vascular disease, unspecified (4) Delayed wound healing: CODE(S): T14.8 - Other injury of unspecified body region (5) Localized edema: CODE(S): R60.0 - Localized edema (6) Malnutrition: CODE(S): E46 - Unspecified protein-calorie malnutrition QUALIFIERS: Malnutrition type: protein-calorie malnutrition Protein-calorie malnutrition severity: moderate Qualified Code(s): E44.0 - Moderate protein-calorie malnutrition PLAN: I reviewed and discussed her case today. Debridement was performed today as noted in the clinical panel to all of the ulcer site. The following work up and care recommendations were made: Dressing: Epi fix, advancing healing product was applied to the lateral left leg ulcer (distal) site and was secured with a wound veil and Steri-Strips after verbal consent was obtained. This was applied according standard protocol. Topical local anesthetic was utilized for pain control prior to this debridement. She tolerated this well. A dry dressing was applied with gauze and she is advised to keep a secondary dressing clean, dry, and intact until follow-up visit. It is noted this is a different site to the previously applied epifix product. This is medically necessary. Offload: Continue offloading pillow to take pressure off of the side of her leg; this is going well so far. she has a donut pillow and I recommend the use of a proximal blanket or pillow to offload her central leg ulcer cluster site. Ok to place partial weight to plantar left foot at this time. To avoid excessive ambulation which she is not doing anyways at this time. To avoid leg rotation onto the knob of her wheelchair. This is padded with cloth and this does not appear to be adequate. Vascular: She is under the care of Dr. Aguilar, vascular surgeon. On 08-20-21 she had catheterization in place to the anterior tibial artery and a balloon angioplasty performed in the popliteal into the proximal anterior tib. To follow-up as scheduled. Additional intervention is not planned at this time and she reports she followed with Dr. Aguilar this morning who wrote recommended monitoring her staged improvement. To continue on Plavix. Edema: I recommend upgrading to Tubigrip, elevation, and medication review at her detention facility to reduce edema which is also contributing pressure to her ulcer sites on her left leg. Infection: This has resolved and her surgical site has also healed. She was previously under the care of infectious disease specialist. Wound cx and surg cx with MRSA, raoultella, citrobacter. Clearance cx with some MRSA and anaerobes. Superficial raoultella was R to cefepime, but surg cx was S and clearance cx was neg for GNR. She was on vanc/meropenem with stop date 09/19/21. There is resolution of local and systemic signs of illness at this time. Pain: This is not present because of her neuropathy. Surgically, she had a transmetatarsal amputation and debridement of the ulcers on 08-08-21 at [facility]. Host factors: She is diabetic and her hemoglobin A1c was recently improved to 6.9% (08-07-21). To continue to work with primary care physician on medical management. I recommend nutritional supplementation optimize healing. She is on Vlad and Glucerna. It is also noted she is on a new course of prednisone for her chest and upper extremity dermatitis with subsequent wound formation. To complete the course as advised by her primary care physician. She understands prednisone may slow wound healing if using a chronic manner and this will be monitored. She resides in a detention facility at this time. I answered all the patient's questions. To return to the wound healing center in 1 week or call sooner if the patient has any questions or concerns. The medical decision making level is low. There is noted low risk of morbidity after considering this treatment plan and diagnostic data. The problems addressed require a low medical decision making level which includes two or more minor problems, a stable chronic illness, or an acute uncomplicated illness or injury.
[2022-03-18 14:23] VITALS: BP 168/71; PULSE 69; RESP 20; TEMP 37.3; BMI 36.6
--- NOTE | 2022-03-18 15:58 | PCM.WC.PN ---
History of Present Illness Date of Service: 03/18/22 Chief Complaint: Left lower extremity ulcers History of Wound: This 72-year-old female following up for left chronic leg ulcer. She also recently had vascular surgery intervention and continues on Plavix. She is taking nutritional supplementation. She is with a staff member from the retirement facility she is residing in at this time. She denies fever, chill, nausea, vomiting. She also has continued increased swelling of the lower extremities. Progress of Wound: Improving distal (left) stable proximal leg ulcer (left) Objective Data Objective Data Vital Signs: Vital Signs Temp Pulse Resp BP 99.1 F 69 20 H 168/71 H 03/18/22 14:23 03/18/22 14:23 03/18/22 14:23 03/18/22 14:23 Weight: 90.904 kg Body Mass Index (BMI) 36.6 Physical Exam Extremity Extremity Narrative: the lateral left leg ulcer granular base noted with reduced depth. there is no longer any eschar, hypergranular, or deep tissue exposure. There is no crepitus, no visible abscess noted to the left foot, ankle or leg. There is also a left lateral proximal ulcer Decreased sensation to the left foot c/w chronic peripheral neuropathy, no evidence of acute ischemia to the bilateral foot or ankle, no evidence of charcot neuroarthropathy or compartment syndrome either. Reduced palpable pulse left. Lower extremity edema mild Debridement Note Debridement Note Wound debrided: lateral leg distal and proximal Wound Grade/Stage: 1,1 Type of Debridement: Excisional debridement Anesthesia Used: 4% Lidocaine Solution Depth: in the subcutaneous layer Percentage of wound debrided: 100 Instrument Used: #15 blade Tissue Removed: fibrous, devitalized subcutaneous, biofilm, slough Severity: Fat Layer Exposed Amount of bleeding with debridement: Mild Bleeding Controlled with: Pressure Patient tolerated procedure: Patient tolerated procedure well Post-Debridement Measurements and Additional Note: Post-Debridement Measurements/Treatment SETH - Nurse 1 - General Ulcer Assessment Start: 03/11/22 14:10 Freq: Status: Active Protocol: MARILIA Activity Type Activity Date Activity User E-Sign Co-Sign Detail Recorded Client Recorded Date Recorded By Document 03/11/22 14:10 DL [id number] 03/11/22 14:20 DL Document 03/18/22 14:23 DL [id number] 03/18/22 14:34 DL 03/11/22 03/18/22 14:10 14:23 WC - Today's Visit Information Type of service Follow-up Visit Follow-up Visit (Physician/MOBILE DEVICE ENGINEER (Physician/MOBILE DEVICE ENGINEER ) ) Arrival Mode Wheelchair Stretcher Transfer Assistance None None Patient Identification Verified (Name & Yes Yes ) Patient Requires Transmission-Based No No Precautions Finger Stick Blood Sugar(mg/dl) (if 167 indicated): Blood Sugar Stated by Patient Height and Weight Body Mass Index (BMI) 36.6 36.6 BMI Classification Obese Obese Vital Signs Temperature (97.8 F-99.1 F) 97.8 F 99.1 F Temperature Source Temporal Temporal Pulse Rate (60-100) 58 L 69 Pulse Location Monitor Monitor Respiratory Rate (12-18) 20 H 20 H Respiratory rate source Observation Observation Blood Pressure (90/60-120/80) 122/99 H 168/71 H Blood Pressure Mean (mm Hg) 106 103 Source Monitor Monitor History Since Last Visit- (Skip if this is Patient's initial visit) Have you changed medications since your No last visit? Any new allergies or adverse reactions No Had a fall/change in ADL's that may No increase risk of falls Signs or symptoms of abuse and/or No neglect since last visit Have you been in the hospital since your No last visit? Has dressing in place as prescribed Yes Has compression in place as prescribed Yes Has offloadiing in place as prescribed Yes Experienced any changes in pain level or No management Pain Scale: 0-10 Numeric Is Patient Pain Free? Yes Yes WC - Nurse 1 - General Ulcer Measurement Start: 03/11/22 14:10 Freq: Status: Active Protocol: Activity Type Activity Date Activity User E-Sign Co-Sign Detail Recorded Client Recorded Date Recorded By Document 03/11/22 14:10 DL [id number] 03/11/22 14:20 DL Document 03/18/22 14:23 DL [id number] 03/18/22 14:34 DL 03/11/22 03/18/22 14:10 14:23 Wound Center Nurse 1 5-left superior leg ulcer -Current Size (cm) - Length 3.2 -Current Size (cm) - Width 1.1 -Current Size (cm) - Depth 0.2 -Total Square Cm 3.52 -Photo Taken No -Exudate Amt Medium -Exudate Type Serosanguineous -Wound Margin Fibrotic Scar, Thickened Scar -Granulation Amt Large (67-100%) -Granulation Quality Pale,[place],Red -Necrosis Amt Small (1-33%) -Necrotic Tissue Type Adherent Slough -Structure Exposed N/A -Texture (Frances-wound Skin Appearance) Localized Edema ,Scarring -Moisture (Frances-wound Skin Appearance) Dry/Scaly -Color (Frances-wound Skin Appearance) Hemosiderin Staining -Temperature (Frances-wound Skin No Abnormality Appearance) (Pt Warm) -Tenderness on Palpation (Frances-wound No Skin Appearance) -Ulcer Cleansing Soap and Water -Foul Odor after Cleansing No -Anesthetic Used 5% Lidocaine Gel 3. L lateral LE -Current Size (cm) - Length 16.6 2.3 -Current Size (cm) - Width 1.8 0.5 -Current Size (cm) - Depth 0.2 0.2 -Total Square Cm 29.88 1.15 -Photo Taken No No -Exudate Amt Medium Small -Exudate Type Serosanguineous -Wound Margin Distinct, Fibrotic Scar, Outline Thickened Scar Attached -Granulation Amt Medium (34-66%) Large (67-100%) -Granulation Quality Red Pale,[place] -Necrosis Amt Medium (34-66%) Small (1-33%) -Necrotic Tissue Type Adherent Slough Adherent Slough -Structure Exposed N/A N/A -Texture (Frances-wound Skin Appearance) Localized Edema Localized Edema ,Scarring ,Scarring -Moisture (Frances-wound Skin Appearance) Dry/Scaly No Abnormality -Color (Frances-wound Skin Appearance) Hemosiderin Hemosiderin Staining Staining -Temperature (Frances-wound Skin No Abnormality No Abnormality Appearance) (Pt Warm) (Pt Warm) -Tenderness on Palpation (Frances-wound No No Skin Appearance) -Ulcer Cleansing Soap and Water Soap and Water -Foul Odor after Cleansing No No -Anesthetic Used 5% Lidocaine 5% Lidocaine Gel Gel Right Calf (cm) 37.5 Right Ankle (cm) 18.5 Left Calf (cm) 43.5 Left Ankle (cm) 21.7 WC - Nurse 2 - General Ulcer CM Notes Start: 03/11/22 14:10 Freq: Status: Active Protocol: Activity Type Activity Date Activity User E-Sign Co-Sign Detail Recorded Client Recorded Date Recorded By Document 03/11/22 14:38 [id number] 03/11/22 14:42 Document 03/18/22 15:00 [id number] 03/18/22 15:03 03/11/22 03/18/22 14:38 15:00 Wound Center Nurse 2 5-left superior leg ulcer -Time 14:39 15:02 -Correct Patient Yes Yes -Correct Side, Site, Position Yes Yes -Correct Procedure Yes Yes -Procedure Performed Yes Yes -Type of Procedure Debridement Debridement -Clinical Debridement Subcutaneous Subcutaneous -Tissue Removed Subcutaneous Subcutaneous -Post Debridement (cm) - Length 2.5 3.2 -Post Debridement (cm) - Width 0.8 1.2 -Post Debridement (cm) - Depth 0.1 0.2 -Total Square (Post) (cm) 2.00 3.84 -Area of Debridement (cm) - Length 2.5 3.2 -Area of Debridement (cm) - Width 0.8 1.2 -Total Square (Area) (cm) 2.00 3.84 -Tunneling No No -Undermining/Tunneling No -Circular Undermining No No -Wound/Ulcer Outcome Not Healed Not Healed -Ulcer Cleansing Rinsed/ Rinsed/ Irrigated with Irrigated with Saline Saline -Foul Odor after Cleansing No No -Bioengineered Tissue No No -Bleeding Controlled with Pressure -Treatment Response Procedure Procedure Tolerated Well Tolerated Well -Offloading No No -Debridement - Subq, 1st 20sq cm Yes Yes 3. L lateral LE -Time 14:39 15:02 -Correct Patient Yes Yes -Correct Side, Site, Position Yes Yes -Correct Procedure Yes Yes -Procedure Performed Yes Yes -Type of Procedure Debridement Incision & Drainage -Clinical Debridement Subcutaneous Subcutaneous -Tissue Removed Subcutaneous Subcutaneous -Post Debridement (cm) - Length 2.6 2.4 -Post Debridement (cm) - Width 1 0.5 -Post Debridement (cm) - Depth 0.1 0.2 -Total Square (Post) (cm) 2.6 1.20 -Area of Debridement (cm) - Length 2.6 2.4 -Area of Debridement (cm) - Width 1.0 0.5 -Total Square (Area) (cm) 2.60 1.20 -Tunneling No No -Undermining/Tunneling No No -Circular Undermining No No -Wound/Ulcer Outcome Not Healed Not Healed -Ulcer Cleansing Rinsed/ Rinsed/ Irrigated with Irrigated with Saline Saline -Foul Odor after Cleansing No No -Bioengineered Tissue Yes Yes -Type of Bioengineered Tissue Epifix Epifix -Expiration Date 10/08/26 10/08/26 -Product Lot Number [id number] -Percent Used 100 100 -Lot number of Saline Used [id number] -Bleeding Controlled with Pressure Pressure -Treatment Response Procedure Procedure Tolerated Well Tolerated Well -Offloading No No -Debridement - Subq, 1st 20sq cm No No -Apply Skin Sub - 1st 25 sq cm - Legs 1 1 -Epifix (per sq cm) 4 4 Pain Scale: 0-10 Numeric Is Patient Pain Free? Yes Yes - Nurse 3 - General Ulcer D/C NN Start: 03/11/22 14:10 Freq: Status: Active Protocol: Activity Type Activity Date Activity User E-Sign Co-Sign Detail Recorded Client Recorded Date Recorded By Document 03/11/22 14:52 [facility] [id number] 03/11/22 14:54 [facility] Document 03/18/22 15:24 [facility] [id number] 03/18/22 15:25 [facility] 03/11/22 03/18/22 14:52 15:24 Wound Care Nurse 3 5-left superior leg ulcer -Other Dressing EPIFIX epifix -Primary Dressing Covered/Secured with Dry Gauze & Dry Gauze & Roll Gauze, Roll Gauze, Secured with Secured with Tape Tape -Other Covering DRSG PER DL AGATE SETTER abd 3. L lateral LE -Other Dressing EPIFIX epifix -Primary Dressing Covered/Secured with Dry Gauze & Dry Gauze & Roll Gauze, Roll Gauze, Secured with Secured with Tape Tape -Other Covering DRSG PER DL AGATE SETTER abd Left -Compression Wrap Alejandro Wrap -Tubular Bandage Single Layer Single Layer -Size of Tubigrip Used Size E Size F -Size E ($) 1 -Size F ($) 1 Treatment Response Procedure Procedure Tolerated Well Tolerated Well Pain Scale: 0-10 Numeric Is Patient Pain Free? 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: CODE(S): L97.922 - Non-pressure chronic ulcer of unspecified part of left lower leg with fat layer exposed (2) Type 2 diabetes mellitus with diabetic polyneuropathy: CODE(S): E11.42 - Type 2 diabetes mellitus with diabetic polyneuropathy QUALIFIERS: Diabetes mellitus shelter insulin use: with shelter use Qualified Code(s): E11.42 - Type 2 diabetes mellitus with diabetic polyneuropathy; Z79.4 - termite helper (current) use of insulin (3) PAD (peripheral artery disease): CODE(S): I73.9 - Peripheral vascular disease, unspecified (4) Delayed wound healing: CODE(S): T14.8 - Other injury of unspecified body region (5) Localized edema: CODE(S): R60.0 - Localized edema (6) Malnutrition: CODE(S): E46 - Unspecified protein-calorie malnutrition QUALIFIERS: Malnutrition type: protein-calorie malnutrition Protein-calorie malnutrition severity: moderate Qualified Code(s): E44.0 - Moderate protein-calorie malnutrition PLAN: I reviewed and discussed her case today. Debridement was performed today as noted in the clinical panel to all of the ulcer site. The following work up and care recommendations were made: Dressing: Epi fix, advancing healing product was applied to the lateral left leg ulcer (distal) site and was secured with a wound veil and Steri-Strips after verbal consent was obtained. This was applied according standard protocol. Topical local anesthetic was utilized for pain control prior to this debridement. She tolerated this well. A dry dressing was applied with gauze and she is advised to keep a secondary dressing clean, dry, and intact until follow-up visit. It is noted this is a different site to the previously applied epifix product. This is medically necessary. Offload: Continue offloading pillow to take pressure off of the side of her leg; this is going well so far. she has a donut pillow and I recommend the use of a proximal blanket or pillow to offload her central leg ulcer cluster site. Ok to place partial weight to plantar left foot at this time. To avoid excessive ambulation which she is not doing anyways at this time. To avoid leg rotation onto the knob of her wheelchair. This is padded with cloth and this does not appear to be adequate. Vascular: She is under the care of Dr. Aguilar, vascular surgeon. On 08-20-21 she had catheterization in place to the anterior tibial artery and a balloon angioplasty performed in the popliteal into the proximal anterior tib. To follow-up as scheduled. Additional intervention is not planned at this time and she reports she followed with Dr. Aguilar this morning who wrote recommended monitoring her staged improvement. To continue on Plavix. Edema: I recommend upgrading to Tubigrip, elevation, and medication review at her retirement facility to reduce edema which is also contributing pressure to her ulcer sites on her left leg. Infection: This has resolved and her surgical site has also healed. She was previously under the care of infectious disease specialist. Wound cx and surg cx with MRSA, raoultella, citrobacter. Clearance cx with some MRSA and anaerobes. Superficial raoultella was R to cefepime, but surg cx was S and clearance cx was neg for GNR. She was on vanc/meropenem with stop date 09/19/21. There is resolution of local and systemic signs of illness at this time. Pain: This is not present because of her neuropathy. Surgically, she had a transmetatarsal amputation and debridement of the ulcers on 08-08-21 at [facility]. Host factors: She is diabetic and her hemoglobin A1c was recently improved to 6.9% (08-07-21). To continue to work with primary care physician on medical management. I recommend nutritional supplementation optimize healing. She is on Vlad and Glucerna. It is also noted she is on a new course of prednisone for her chest and upper extremity dermatitis with subsequent wound formation. To complete the course as advised by her primary care physician. She understands prednisone may slow wound healing if using a chronic manner and this will be monitored. She resides in a retirement facility at this time. I answered all the patient's questions. To return to the wound healing center in 1 week or call sooner if the patient has any questions or concerns.
[2022-03-25 15:04] VITALS: BP 167/45; PULSE 55; RESP 16; BMI 36.6
--- NOTE | 2022-03-25 15:48 | PN.PCM_ITS ---
History of Present Illness Date of Service: 03/25/22 Chief Complaint: Left lower extremity ulcers History of Wound: This 72-year-old female following up for left chronic leg ulcer. She also recently had vascular surgery intervention and continues on Plavix. She is taking nutritional supplementation. She is with a staff member from [facility] at this time. She denies fever, chill, nausea, vomiting. She also has continued increased swelling of the lower extremities. She was started on furosemide. Progress of Wound: Improving distal (left) stable proximal leg ulcer (left) Objective Data Objective Data Vital Signs: Vital Signs Temp Pulse Resp BP 99.1 F 55 L 16 167/45 H 03/18/22 14:23 03/25/22 15:04 03/25/22 15:04 03/25/22 15:04 Oxygen Delivery Method Room Air Weight: 90.904 kg Body Mass Index (BMI) 36.6 Physical Exam Extremity Extremity Narrative: the lateral left leg ulcer granular base noted with reduced depth. there is no longer any eschar, hypergranular, or deep tissue exposure. There is no crepitus, no visible abscess noted to the left foot, ankle or leg. There is also a left lateral proximal ulcer Decreased sensation to the left foot c/w chronic peripheral neuropathy, no evidence of acute ischemia to the bilateral foot or ankle, no evidence of charcot neuroarthropathy or compartment syndrome either. Reduced palpable pulse left. Lower extremity edema mild to moderate. Debridement Note Debridement Note Wound debrided: left leg distal and proximal Wound Grade/Stage: 1 Type of Debridement: Excisional debridement Anesthesia Used: 4% Lidocaine Solution Depth: in the subcutaneous layer Percentage of wound debrided: 100 Instrument Used: #15 blade Tissue Removed: fibrous, devitalized subcutaneous, biofilm, slough Severity: Fat Layer Exposed Amount of bleeding with debridement: Mild Bleeding Controlled with: Pressure Patient tolerated procedure: Patient tolerated procedure well Post-Debridement Measurements and Additional Note: Post-Debridement Measurements/Treatment SETH - Nurse 1 - General Ulcer Assessment Start: 03/11/22 14:10 Freq: Status: Active Protocol: ABDIAZIZEXT Activity Type Activity Date Activity User E-Sign Co-Sign Detail Recorded Client Recorded Date Recorded By Document 03/11/22 14:10 DL [id number] 03/11/22 14:20 DL Document 03/18/22 14:23 DL [id number] 03/18/22 14:34 DL Document 03/25/22 15:04 BM [id number] 03/25/22 15:07 BMF 03/11/22 03/18/22 03/25/22 14:10 14:23 15:04 - Today's Visit Information Type of service Follow-up Visit Follow-up Visit Follow-up Visit (Physician/BACTERIOLOGIST MEDICAL (Physician/BACTERIOLOGIST MEDICAL (Physician/BACTERIOLOGIST MEDICAL ) ) ) Arrival Mode Wheelchair Stretcher Wheelchair Transfer Assistance None None None Accompanied by CAREGIVER/ TRANSPORT Patient Identification Verified (Name & Yes Yes Yes ) Patient Requires Transmission-Based No No No Precautions Finger Stick Blood Sugar(mg/dl) (if 167 indicated): Blood Sugar Stated by Patient Height and Weight Body Mass Index (BMI) 36.6 36.6 36.6 BMI Classification Obese Obese Obese Vital Signs Temperature (97.8 F-99.1 F) 97.8 F 99.1 F Temperature Source Temporal Temporal Pulse Rate (60-100) 58 L 69 55 L Pulse Location Monitor Monitor Monitor Respiratory Rate (12-18) 20 H 20 H 16 Respiratory rate source Observation Observation Observation Oxygen Delivery Method Room Air Blood Pressure (90/60-120/80) 122/99 H 168/71 H 167/45 H Blood Pressure Mean (mm Hg) 106 103 85 Source Monitor Monitor Monitor Position Sitting Blood Pressure Location Right Forearm History Since Last Visit- (Skip if this is Patient's initial visit) Have you changed medications since your No No last visit? Any new allergies or adverse reactions No No Had a fall/change in ADL's that may No No increase risk of falls Signs or symptoms of abuse and/or No No neglect since last visit Have you been in the hospital since your No No last visit? Has dressing in place as prescribed Yes No Has compression in place as prescribed Yes No Has offloadiing in place as prescribed Yes No Experienced any changes in pain level or No No management Pain Scale: 0-10 Numeric Is Patient Pain Free? Yes Yes Yes - Nurse 1 - General Ulcer Measurement Start: 03/11/22 14:10 Freq: Status: Active Protocol: Activity Type Activity Date Activity User E-Sign Co-Sign Detail Recorded Client Recorded Date Recorded By Document 03/11/22 14:10 DL [id number] 03/11/22 14:20 DL Document 03/18/22 14:23 DL [id number] 03/18/22 14:34 DL Document 03/25/22 15:04 [facility] [id number] 03/25/22 15:07 F 03/11/22 03/18/22 03/25/22 14:10 14:23 15:04 Wound Center Nurse 1 5-left superior leg ulcer -Combined with other wound No -Current Size (cm) - Length 3.2 3 -Current Size (cm) - Width 1.1 1 -Current Size (cm) - Depth 0.2 0.1 -Total Square Cm 3.52 3 -Photo Taken No No -Epithelialization Small 1-33% -Tunneling No -Undermining/Tunneling No -Circular Undermining No -Exudate Amt Medium Small -Exudate Type Serosanguineous Serous -Wound Margin Fibrotic Scar, Distinct, Thickened Scar Outline Attached -Granulation Amt Large (67-100%) Large (67-100%) -Granulation Quality Pale,[place],Red Red -Slough/Fibrin Yes -Necrosis Amt Small (1-33%) Small (1-33%) -Necrotic Tissue Type Adherent Slough Adherent Slough -Structure Exposed N/A -Texture (Frances-wound Skin Appearance) Localized Edema Assessed, ,Scarring Scarring -Moisture (Frances-wound Skin Appearance) Dry/Scaly Assessed,Dry/ Scaly -Color (Frances-wound Skin Appearance) Hemosiderin Assessed Staining -Temperature (Frances-wound Skin No Abnormality No Abnormality Appearance) (Pt Warm) (Pt Warm) -Tenderness on Palpation (Frances-wound No No Skin Appearance) -Ulcer Cleansing Soap and Water Soap and Water -Foul Odor after Cleansing No No -Anesthetic Used 5% Lidocaine 4% Lidocaine Gel Solution 3. L lateral LE -Combined with other wound No -Current Size (cm) - Length 16.6 2.3 2 -Current Size (cm) - Width 1.8 0.5 2 -Current Size (cm) - Depth 0.2 0.2 0.2 -Total Square Cm 29.88 1.15 4 -Photo Taken No No No -Epithelialization Small 1-33% -Tunneling No -Undermining/Tunneling No -Circular Undermining No -Exudate Amt Medium Small Small -Exudate Type Serosanguineous Serosanguineous -Wound Margin Distinct, Fibrotic Scar, Distinct, Outline Thickened Scar Outline Attached Attached -Granulation Amt Medium (34-66%) Large (67-100%) Medium (34-66%) -Granulation Quality Red Pale,[place] Red -Slough/Fibrin Yes -Necrosis Amt Medium (34-66%) Small (1-33%) Medium (34-66%) -Necrotic Tissue Type Adherent Slough Adherent Slough Adherent Slough -Structure Exposed N/A N/A -Texture (Frances-wound Skin Appearance) Localized Edema Localized Edema Assessed, ,Scarring ,Scarring Scarring -Moisture (Frances-wound Skin Appearance) Dry/Scaly No Abnormality Assessed -Color (Frances-wound Skin Appearance) Hemosiderin Hemosiderin Assessed Staining Staining -Temperature (Frances-wound Skin No Abnormality No Abnormality No Abnormality Appearance) (Pt Warm) (Pt Warm) (Pt Warm) -Tenderness on Palpation (Frances-wound No No No Skin Appearance) -Ulcer Cleansing Soap and Water Soap and Water Soap and Water -Foul Odor after Cleansing No No No -Anesthetic Used 5% Lidocaine 5% Lidocaine 4% Lidocaine Gel Gel Solution Lower Limb Edema Present Yes Right Calf (cm) 37.5 Right Ankle (cm) 18.5 Left Calf (cm) 43.5 40 Left Ankle (cm) 21.7 23 - Nurse 2 - General Ulcer CM Notes Start: 03/11/22 14:10 Freq: Status: Active Protocol: Activity Type Activity Date Activity User E-Sign Co-Sign Detail Recorded Client Recorded Date Recorded By Document 03/11/22 14:38 [id number] 03/11/22 14:42 Document 03/18/22 15:00 [id number] 03/18/22 15:03 Document 03/25/22 15:39 [id number] 03/25/22 15:45 03/11/22 03/18/22 03/25/22 14:38 15:00 15:39 Wound Center Nurse 2 5-left superior leg ulcer -Time 14:39 15:02 -Correct Patient Yes Yes Yes -Correct Side, Site, Position Yes Yes Yes -Correct Procedure Yes Yes Yes -Procedure Performed Yes Yes Yes -Type of Procedure Debridement Debridement Debridement -Clinical Debridement Subcutaneous Subcutaneous Subcutaneous -Tissue Removed Subcutaneous Subcutaneous Subcutaneous -Post Debridement (cm) - Length 2.5 3.2 3.1 -Post Debridement (cm) - Width 0.8 1.2 1 -Post Debridement (cm) - Depth 0.1 0.2 0.1 -Total Square (Post) (cm) 2.00 3.84 3.1 -Area of Debridement (cm) - Length 2.5 3.2 3.1 -Area of Debridement (cm) - Width 0.8 1.2 1.0 -Total Square (Area) (cm) 2.00 3.84 3.10 -Tunneling No No No -Undermining/Tunneling No No -Circular Undermining No No No -Wound/Ulcer Outcome Not Healed Not Healed Not Healed -Ulcer Cleansing Rinsed/ Rinsed/ Rinsed/ Irrigated with Irrigated with Irrigated with Saline Saline Saline -Foul Odor after Cleansing No No No -Bioengineered Tissue No No No -Bleeding Controlled with Pressure Pressure -Treatment Response Procedure Procedure Procedure Tolerated Well Tolerated Well Tolerated Well -Offloading No No No -Debridement - Subq, 1st 20sq cm Yes Yes Yes 3. L lateral LE -Time 14:39 15:02 15:40 -Correct Patient Yes Yes Yes -Correct Side, Site, Position Yes Yes Yes -Correct Procedure Yes Yes Yes -Procedure Performed Yes Yes Yes -Type of Procedure Debridement Incision & Debridement Drainage -Clinical Debridement Subcutaneous Subcutaneous Subcutaneous -Tissue Removed Subcutaneous Subcutaneous Subcutaneous -Post Debridement (cm) - Length 2.6 2.4 2.1 -Post Debridement (cm) - Width 1 0.5 2.0 -Post Debridement (cm) - Depth 0.1 0.2 0.2 -Total Square (Post) (cm) 2.6 1.20 4.20 -Area of Debridement (cm) - Length 2.6 2.4 2.1 -Area of Debridement (cm) - Width 1.0 0.5 2.0 -Total Square (Area) (cm) 2.60 1.20 4.20 -Tunneling No No No -Undermining/Tunneling No No No -Circular Undermining No No No -Wound/Ulcer Outcome Not Healed Not Healed Not Healed -Ulcer Cleansing Rinsed/ Rinsed/ Rinsed/ Irrigated with Irrigated with Irrigated with Saline Saline Saline -Foul Odor after Cleansing No No No -Bioengineered Tissue Yes Yes No -Type of Bioengineered Tissue Epifix Epifix -Expiration Date 10/08/26 10/08/26 -Product Lot Number [id number] -Percent Used 100 100 -Lot number of Saline Used [id number] -Bleeding Controlled with Pressure Pressure Pressure -Treatment Response Procedure Procedure Procedure Tolerated Well Tolerated Well Tolerated Well -Offloading No No No -Debridement - Subq, 1st 20sq cm No No No -Apply Skin Sub - 1st 25 sq cm - Legs 1 1 1 -Epifix (per sq cm) 4 4 4 Pain Scale: 0-10 Numeric Is Patient Pain Free? Yes Yes Yes WC - Nurse 3 - General Ulcer D/C NN Start: 03/11/22 14:10 Freq: Status: Active Protocol: Activity Type Activity Date Activity User E-Sign Co-Sign Detail Recorded Client Recorded Date Recorded By Document 03/11/22 14:52 [facility] [id number] 03/11/22 14:54 [facility] Document 03/18/22 15:24 [facility] [id number] 03/18/22 15:25 [facility] Document 03/25/22 15:42 [facility] [id number] 03/25/22 15:43 BM 03/11/22 03/18/22 03/25/22 14:52 15:24 15:42 Wound Care Nurse 3 5-left superior leg ulcer -Other Dressing EPIFIX epifix EPIFIX -Primary Dressing Covered/Secured with Dry Gauze & Dry Gauze & Dry Gauze & Roll Gauze, Roll Gauze, Roll Gauze, Secured with Secured with Secured with Tape Tape Tape -Other Covering DRSG PER DL SHEET ROCK INSTALLATION HELPER abd DRSG PER [place] SHEET ROCK INSTALLATION HELPER 3. L lateral LE -Other Dressing EPIFIX epifix EPIFIX -Primary Dressing Covered/Secured with Dry Gauze & Dry Gauze & Dry Gauze & Roll Gauze, Roll Gauze, Roll Gauze, Secured with Secured with Secured with Tape Tape Tape -Other Covering DRSG PER DL SHEET ROCK INSTALLATION HELPER abd DRSG PER [place] SHEET ROCK INSTALLATION HELPER Left -Compression Wrap Alejandro Wrap Alejandro Wrap -Tubular Bandage Single Layer Single Layer Single Layer -Size of Tubigrip Used Size E Size F Size F -Size E ($) 1 -Size F ($) 1 1 -Other ALEJANDRO OVER TUBI PER [place] SHEET ROCK INSTALLATION HELPER Treatment Response Procedure Procedure Procedure Tolerated Well Tolerated Well Tolerated Well Pain Scale: 0-10 Numeric Is Patient Pain Free? 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: CODE(S): L97.922 - Non-pressure chronic ulcer of unspecified part of left lower leg with fat layer exposed (2) Type 2 diabetes mellitus with diabetic polyneuropathy: CODE(S): E11.42 - Type 2 diabetes mellitus with diabetic polyneuropathy QUALIFIERS: Diabetes mellitus proj engineer insulin use: with mcc use Qualified Code(s): E11.42 - Type 2 diabetes mellitus with diabetic polyneuropathy; 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 Debridement was performed today as noted in the clinical panel to all of the ulcer site. The following work up and care recommendations were made: Dressing: Epi fix, advancing healing product was applied to the lateral left leg ulcer (distal) site and was secured with a wound veil and Steri-Strips after verbal consent was obtained. This was applied according standard protocol. Topical local anesthetic was utilized for pain control prior to this debridement. She tolerated this well. A dry dressing was applied with gauze and she is advised to keep a secondary dressing clean, dry, and intact until follow-up visit. It is noted this is a different site to the previously applied epifix product. This is medically necessary. Offload: Continue offloading pillow to take pressure off of the side of her leg; this is going well so far. she has a donut pillow and I recommend the use of a proximal blanket or pillow to offload her central leg ulcer cluster site. Ok to place partial weight to plantar left foot at this time. To avoid excessive ambulation which she is not doing anyways at this time. To avoid leg rotation onto the knob of her wheelchair. This is padded with cloth and this does not appear to be adequate. Vascular: She is under the care of Dr. Aguilar, vascular surgeon. On 08-20-21 she had catheterization in place to the anterior tibial artery and a balloon angioplasty performed in the popliteal into the proximal anterior tib. To follow-up as scheduled. Additional intervention is not planned at this time and she reports she followed with Dr. Aguilar this morning who wrote recommended monitoring her staged improvement. To continue on Plavix. Edema: I recommend upgrading to Tubigrip, elevation, and medication review at her [facility] facility to reduce edema which is also contributing pressure to her ulcer sites on her left leg. To continue recently started furosemide. To result salt in diet. Infection: This has resolved and her surgical site has also healed. She was previously under the care of infectious disease specialist. Wound cx and surg cx with MRSA, raoultella, citrobacter. Clearance cx with some MRSA and kayode erobes. Superficial raoultella was R to cefepime, but surg cx was S and clearance cx was neg for GNR. She was on vanc/meropenem with stop date 09/19/21. There is resolution of local and systemic signs of illness at this time. Pain: This is not present because of her neuropathy. Surgically, she had a transmetatarsal amputation and debridement of the ulcers on 08-08-21 at [facility] [place]. Host factors: She is diabetic and her hemoglobin A1c was recently improved to 6.9% (08-07-21). To continue to work with primary care physician on medical management. I recommend nutritional supplementation optimize healing. She is on Vlad and Glucerna. It is also noted she is on a new course of prednisone for her chest and upper extremity dermatitis with subsequent wound formation. To complete the course as advised by her primary care physician. She understands prednisone may slow wound healing if using a chronic manner and this will be monitored. She resides in a [facility] facility at this time. I answered all the patient's questions. To return to the wound healing center in 1 week or call sooner if the patient has any questions or concerns.
[2022-04-01 15:10] VITALS: BP 150/69; PULSE 60; RESP 22; TEMP 36.4; BMI 36.6
--- NOTE | 2022-04-01 16:26 | PN.PCM_ITS ---
History of Present Illness Date of Service: 04/01/22 Chief Complaint: Left lower extremity ulcers History of Wound: This 72-year-old female following up for left chronic leg ulcer. She also recently had vascular surgery intervention and continues on Plavix. She is taking nutritional supplementation. She is with a staff member from the senior living facility she is residing in at this time. She denies fever, chill, nausea, vomiting. She also has some reduction in swelling of the lower extremities. She was started on furosemide. Progress of Wound: Improving distal (left) improving proximal leg ulcer (left) Subjective Subjective Objective Data Objective Data Vital Signs: Vital Signs Temp Pulse Resp BP 97.5 F L 60 22 H 150/69 H 04/01/22 15:10 04/01/22 15:10 04/01/22 15:10 04/01/22 15:10 Oxygen Delivery Method Room Air Weight: 90.904 kg Body Mass Index (BMI) 36.6 Physical Exam Extremity Extremity Narrative: the lateral left leg ulcer granular base noted with reduced depth. there is no longer any eschar, hypergranular, or deep tissue exposure. some peripheral epithelialization is noted. There is no crepitus, no visible abscess noted to the left foot, ankle or leg. There is also a left lateral proximal ulcer Decreased sensation to the left foot c/w chronic peripheral neuropathy, no evidence of acute ischemia to the bilateral foot or ankle, no evidence of charcot neuroarthropathy or compartment syndrome either. Reduced palpable pulse left. Lower extremity edema mild to moderate. Debridement Note Debridement Note Wound debrided: lateral left leg (proximal and distal) Wound Grade/Stage: 1 Type of Debridement: Excisional debridement Anesthesia Used: 4% Lidocaine Solution Depth: in the subcutaneous layer Percentage of wound debrided: 100 Instrument Used: #15 blade Tissue Removed: fibrous, devitalized subcutaneous, biofilm, slough Severity: Fat Layer Exposed Amount of bleeding with debridement: Mild Bleeding Controlled with: Pressure Patient tolerated procedure: Patient tolerated procedure well Post-Debridement Measurements and Additional Note: Post-Debridement Measurements/Treatment SETH - Nurse 1 - General Ulcer Assessment Start: 03/11/22 14:10 Freq: Status: Active Protocol: MARILIA Activity Type Activity Date Activity User E-Sign Co-Sign Detail Recorded Client Recorded Date Recorded By Document 03/11/22 14:10 BLUE [id number] 03/11/22 14:20 DL Document 03/18/22 14:23 DL [id number] 03/18/22 14:34 DL Document 03/25/22 15:04 BMF [id number] 03/25/22 15:07 BMF Document 04/01/22 15:10 DL [id number] 04/01/22 15:20 DL 03/11/22 03/18/22 03/25/22 14:10 14:23 15:04 WC - Today's Visit Information Type of service Follow-up Visit Follow-up Visit Follow-up Visit (Physician/PSYCHOPAEDIC NURSE (Physician/PSYCHOPAEDIC NURSE (Physician/PSYCHOPAEDIC NURSE ) ) ) Arrival Mode Wheelchair Stretcher Wheelchair Transfer Assistance None None None Accompanied by CAREGIVER/ TRANSPORT Patient Identification Verified (Name & Yes Yes Yes ) Patient Requires Transmission-Based No No No Precautions Finger Stick Blood Sugar(mg/dl) (if 167 indicated): Blood Sugar Stated by Patient Height and Weight Body Mass Index (BMI) 36.6 36.6 36.6 BMI Classification Obese Obese Obese Vital Signs Temperature (97.8 F-99.1 F) 97.8 F 99.1 F Temperature Source Temporal Temporal Pulse Rate (60-100) 58 L 69 55 L Pulse Location Monitor Monitor Monitor Respiratory Rate (12-18) 20 H 20 H 16 Respiratory rate source Observation Observation Observation Oxygen Delivery Method Room Air Blood Pressure (90/60-120/80) 122/99 H 168/71 H 167/45 H Blood Pressure Mean (mm Hg) 106 103 85 Source Monitor Monitor Monitor Position Sitting Blood Pressure Location Right Forearm History Since Last Visit- (Skip if this is Patient's initial visit) Have you changed medications since your No No last visit? Any new allergies or adverse reactions No No Had a fall/change in ADL's that may No No increase risk of falls Signs or symptoms of abuse and/or No No neglect since last visit Have you been in the hospital since your No No last visit? Has dressing in place as prescribed Yes No Has compression in place as prescribed Yes No Has offloadiing in place as prescribed Yes No Experienced any changes in pain level or No No management Pain Scale: 0-10 Numeric Is Patient Pain Free? Yes Yes Yes 04/01/22 15:10 WC - Today's Visit Information Type of service Follow-up Visit (Physician/PSYCHOPAEDIC NURSE ) Arrival Mode Wheelchair Transfer Assistance None Accompanied by Patient Identification Verified (Name & Yes ) Patient Requires Transmission-Based No Precautions Finger Stick Blood Sugar(mg/dl) (if indicated): Blood Sugar Height and Weight Body Mass Index (BMI) 36.6 BMI Classification Obese Vital Signs Temperature (97.8 F-99.1 F) 97.5 F L Temperature Source Temporal Pulse Rate (60-100) 60 Pulse Location Monitor Respiratory Rate (12-18) 22 H Respiratory rate source Observation Oxygen Delivery Method Blood Pressure (90/60-120/80) 150/69 H Blood Pressure Mean (mm Hg) 96 Source Monitor Position Blood Pressure Location History Since Last Visit- (Skip if this is Patient's initial visit) Have you changed medications since your No last visit? Any new allergies or adverse reactions No Had a fall/change in ADL's that may No increase risk of falls Signs or symptoms of abuse and/or No neglect since last visit Have you been in the hospital since your No last visit? Has dressing in place as prescribed Yes Has compression in place as prescribed Yes Has offloadiing in place as prescribed Yes Experienced any changes in pain level or No management Pain Scale: 0-10 Numeric Is Patient Pain Free? Yes WC - Nurse 1 - General Ulcer Measurement Start: 03/11/22 14:10 Freq: Status: Active Protocol: Activity Type Activity Date Activity User E-Sign Co-Sign Detail Recorded Client Recorded Date Recorded By Document 03/11/22 14:10 DL [id number] 03/11/22 14:20 DL Document 03/18/22 14:23 DL [id number] 03/18/22 14:34 DL Document 03/25/22 15:04 [facility] [id number] 03/25/22 15:07 [facility] Document 04/01/22 15:10 DL [id number] 04/01/22 15:20 DL 03/11/22 03/18/22 03/25/22 14:10 14:23 15:04 Wound Center Nurse 1 5-left superior leg ulcer -Combined with other wound No -Current Size (cm) - Length 3.2 3 -Current Size (cm) - Width 1.1 1 -Current Size (cm) - Depth 0.2 0.1 -Total Square Cm 3.52 3 -Photo Taken No No -Epithelialization Small 1-33% -Tunneling No -Undermining/Tunneling No -Circular Undermining No -Exudate Amt Medium Small -Exudate Type Serosanguineous Serous -Wound Margin Fibrotic Scar, Distinct, Thickened Scar Outline Attached -Granulation Amt Large (67-100%) Large (67-100%) -Granulation Quality Pale,[place],Red Red -Slough/Fibrin Yes -Necrosis Amt Small (1-33%) Small (1-33%) -Necrotic Tissue Type Adherent Slough Adherent Slough -Structure Exposed N/A -Texture (Frances-wound Skin Appearance) Localized Edema Assessed, ,Scarring Scarring -Moisture (Frances-wound Skin Appearance) Dry/Scaly Assessed,Dry/ Scaly -Color (Frances-wound Skin Appearance) Hemosiderin Assessed Staining -Temperature (Frances-wound Skin No Abnormality No Abnormality Appearance) (Pt Warm) (Pt Warm) -Tenderness on Palpation (Frances-wound No No Skin Appearance) -Ulcer Cleansing Soap and Water Soap and Water -Foul Odor after Cleansing No No -Anesthetic Used 5% Lidocaine 4% Lidocaine Gel Solution 3. L lateral LE -Combined with other wound No -Current Size (cm) - Length 16.6 2.3 2 -Current Size (cm) - Width 1.8 0.5 2 -Current Size (cm) - Depth 0.2 0.2 0.2 -Total Square Cm 29.88 1.15 4 -Photo Taken No No No -Epithelialization Small 1-33% -Tunneling No -Undermining/Tunneling No -Circular Undermining No -Exudate Amt Medium Small Small -Exudate Type Serosanguineous Serosanguineous -Wound Margin Distinct, Fibrotic Scar, Distinct, Outline Thickened Scar Outline Attached Attached -Granulation Amt Medium (34-66%) Large (67-100%) Medium (34-66%) -Granulation Quality Red Pale,[place] Red -Slough/Fibrin Yes -Necrosis Amt Medium (34-66%) Small (1-33%) Medium (34-66%) -Necrotic Tissue Type Adherent Slough Adherent Slough Adherent Slough -Structure Exposed N/A N/A -Texture (Frances-wound Skin Appearance) Localized Edema Localized Edema Assessed, ,Scarring ,Scarring Scarring -Moisture (Frances-wound Skin Appearance) Dry/Scaly No Abnormality Assessed -Color (Frances-wound Skin Appearance) Hemosiderin Hemosiderin Assessed Staining Staining -Temperature (Frances-wound Skin No Abnormality No Abnormality No Abnormality Appearance) (Pt Warm) (Pt Warm) (Pt Warm) -Tenderness on Palpation (Frances-wound No No No Skin Appearance) -Ulcer Cleansing Soap and Water Soap and Water Soap and Water -Foul Odor after Cleansing No No No -Anesthetic Used 5% Lidocaine 5% Lidocaine 4% Lidocaine Gel Gel Solution Lower Limb Edema Present Yes Right Calf (cm) 37.5 Right Ankle (cm) 18.5 Left Calf (cm) 43.5 40 Left Ankle (cm) 21.7 04/01/22 15:10 Wound Center Nurse 1 5-left superior leg ulcer -Combined with other wound -Current Size (cm) - Length 3 -Current Size (cm) - Width 1 -Current Size (cm) - Depth 0.1 -Total Square Cm 3 -Photo Taken No -Epithelialization -Tunneling -Undermining/Tunneling -Circular Undermining -Exudate Amt Small -Exudate Type Serosanguineous -Wound Margin Distinct, Outline Attached -Granulation Amt Medium (34-66%) -Granulation Quality Red -Slough/Fibrin -Necrosis Amt Medium (34-66%) -Necrotic Tissue Type Adherent Slough -Structure Exposed N/A -Texture (Frances-wound Skin Appearance) Scarring -Moisture (Frances-wound Skin Appearance) No Abnormality -Color (Frances-wound Skin Appearance) Hemosiderin Staining -Temperature (Frances-wound Skin No Abnormality Appearance) (Pt Warm) -Tenderness on Palpation (Frances-wound Skin Appearance) -Ulcer Cleansing Rinsed/ Irrigated with Saline -Foul Odor after Cleansing No -Anesthetic Used 5% Lidocaine Gel 3. L lateral LE -Combined with other wound -Current Size (cm) - Length 1.7 -Current Size (cm) - Width 0.6 -Current Size (cm) - Depth 0.2 -Total Square Cm 1.02 -Photo Taken No -Epithelialization -Tunneling -Undermining/Tunneling -Circular Undermining -Exudate Amt Small -Exudate Type Serosanguineous -Wound Margin Distinct, Outline Attached -Granulation Amt Medium (34-66%) -Granulation Quality Red -Slough/Fibrin -Necrosis Amt Medium (34-66%) -Necrotic Tissue Type Adherent Slough -Structure Exposed N/A -Texture (Frances-wound Skin Appearance) Scarring -Moisture (Frances-wound Skin Appearance) Dry/Scaly -Color (Frances-wound Skin Appearance) Hemosiderin Staining -Temperature (Frances-wound Skin No Abnormality Appearance) (Pt Warm) -Tenderness on Palpation (Frances-wound No Skin Appearance) -Ulcer Cleansing Rinsed/ Irrigated with Saline -Foul Odor after Cleansing No -Anesthetic Used 5% Lidocaine Gel Lower Limb Edema Present Right Calf (cm) Right Ankle (cm) Left Calf (cm) Left Ankle (cm) WC - Nurse 2 - General Ulcer CM Notes Start: 03/11/22 14:10 Freq: Status: Active Protocol: Activity Type Activity Date Activity User E-Sign Co-Sign Detail Recorded Client Recorded Date Recorded By Document 03/11/22 14:38 [id number] 03/11/22 14:42 Document 03/18/22 15:00 [id number] 03/18/22 15:03 Document 03/25/22 15:39 [id number] 03/25/22 15:45 03/11/22 03/18/22 03/25/22 14:38 15:00 15:39 Wound Center Nurse 2 5-left superior leg ulcer -Time 14:39 15:02 -Correct Patient Yes Yes Yes -Correct Side, Site, Position Yes Yes Yes -Correct Procedure Yes Yes Yes -Procedure Performed Yes Yes Yes -Type of Procedure Debridement Debridement Debridement -Clinical Debridement Subcutaneous Subcutaneous Subcutaneous -Tissue Removed Subcutaneous Subcutaneous Subcutaneous -Post Debridement (cm) - Length 2.5 3.2 3.1 -Post Debridement (cm) - Width 0.8 1.2 1 -Post Debridement (cm) - Depth 0.1 0.2 0.1 -Total Square (Post) (cm) 2.00 3.84 3.1 -Area of Debridement (cm) - Length 2.5 3.2 3.1 -Area of Debridement (cm) - Width 0.8 1.2 1.0 -Total Square (Area) (cm) 2.00 3.84 3.10 -Tunneling No No No -Undermining/Tunneling No No -Circular Undermining No No No -Wound/Ulcer Outcome Not Healed Not Healed Not Healed -Ulcer Cleansing Rinsed/ Rinsed/ Rinsed/ Irrigated with Irrigated with Irrigated with Saline Saline Saline -Foul Odor after Cleansing No No No -Bioengineered Tissue No No No -Bleeding Controlled with Pressure Pressure -Treatment Response Procedure Procedure Procedure Tolerated Well Tolerated Well Tolerated Well -Offloading No No No -Debridement - Subq, 1st 20sq cm Yes Yes Yes 3. L lateral LE -Time 14:39 15:02 15:40 -Correct Patient Yes Yes Yes -Correct Side, Site, Position Yes Yes Yes -Correct Procedure Yes Yes Yes -Procedure Performed Yes Yes Yes -Type of Procedure Debridement Incision & Debridement Drainage -Clinical Debridement Subcutaneous Subcutaneous Subcutaneous -Tissue Removed Subcutaneous Subcutaneous Subcutaneous -Post Debridement (cm) - Length 2.6 2.4 2.1 -Post Debridement (cm) - Width 1 0.5 2.0 -Post Debridement (cm) - Depth 0.1 0.2 0.2 -Total Square (Post) (cm) 2.6 1.20 4.20 -Area of Debridement (cm) - Length 2.6 2.4 2.1 -Area of Debridement (cm) - Width 1.0 0.5 2.0 -Total Square (Area) (cm) 2.60 1.20 4.20 -Tunneling No No No -Undermining/Tunneling No No No -Circular Undermining No No No -Wound/Ulcer Outcome Not Healed Not Healed Not Healed -Ulcer Cleansing Rinsed/ Rinsed/ Rinsed/ Irrigated with Irrigated with Irrigated with Saline Saline Saline -Foul Odor after Cleansing No No No -Bioengineered Tissue Yes Yes No -Type of Bioengineered Tissue Epifix Epifix -Expiration Date 10/08/26 10/08/26 -Product Lot Number [id number] -Percent Used 100 100 -Lot number of Saline Used [id number] -Bleeding Controlled with Pressure Pressure Pressure -Treatment Response Procedure Procedure Procedure Tolerated Well Tolerated Well Tolerated Well -Offloading No No No -Debridement - Subq, 1st 20sq cm No No No -Apply Skin Sub - 1st 25 sq cm - Legs 1 1 1 -Epifix (per sq cm) 4 4 4 Pain Scale: 0-10 Numeric Is Patient Pain Free? Yes Yes Yes WC - Nurse 3 - General Ulcer D/C NN Start: 03/11/22 14:10 Freq: Status: Active Protocol: Activity Type Activity Date Activity User E-Sign Co-Sign Detail Recorded Client Recorded Date Recorded By Document 03/11/22 14:52 [facility] [id number] 03/11/22 14:54 [facility] Document 03/18/22 15:24 [facility] [id number] 03/18/22 15:25 [facility] Document 03/25/22 15:42 [facility] [id number] 03/25/22 15:43 [facility] Document 04/01/22 16:10 [id number] 04/01/22 16:11 DL 03/11/22 03/18/22 03/25/22 14:52 15:24 15:42 Wound Care Nurse 3 5-left superior leg ulcer -Foul Odor after Cleansing -Other Dressing EPIFIX epifix EPIFIX -Primary Dressing Covered/Secured with Dry Gauze & Dry Gauze & Dry Gauze & Roll Gauze, Roll Gauze, Roll Gauze, Secured with Secured with Secured with Tape Tape Tape -Other Covering DRSG PER DL CRIMINAL PSYCHOLOGIST abd DRSG PER [place] CRIMINAL PSYCHOLOGIST 3. L lateral LE -Foul Odor after Cleansing -Other Dressing EPIFIX epifix EPIFIX -Primary Dressing Covered/Secured with Dry Gauze & Dry Gauze & Dry Gauze & Roll Gauze, Roll Gauze, Roll Gauze, Secured with Secured with Secured with Tape Tape Tape -Other Covering DRSG PER DL CRIMINAL PSYCHOLOGIST abd DRSG PER [place] CRIMINAL PSYCHOLOGIST Left -Compression Wrap Alejandro Wrap Alejandro Wrap -Tubular Bandage Single Layer Single Layer Single Layer -Size of Tubigrip Used Size E Size F Size F -Size E ($) 1 -Size F ($) 1 1 -Other ALEJANDRO OVER TUBI PER [place] CRIMINAL PSYCHOLOGIST Treatment Response Procedure Procedure Procedure Tolerated Well Tolerated Well Tolerated Well Pain Scale: 0-10 Numeric Is Patient Pain Free? Yes Yes Yes WC - Visit Discharge Discharge Condition Stable Stable Stable Ambulatory Status Wheelchair Stretcher Wheelchair Transportation [facility] Facility Type Transportation Sales Consultant Care Transportation Sales Consultant Care Transportation Sales Consultant Care Facility Facility Facility Orders Sent 04/01/22 16:10 Wound Care Nurse 3 5-left superior leg ulcer -Foul Odor after Cleansing No -Other Dressing Epifix -Primary Dressing Covered/Secured with Dry Gauze & Roll Gauze -Other Covering 3. L lateral LE -Foul Odor after Cleansing No -Other Dressing Epifix -Primary Dressing Covered/Secured with Dry Gauze & Roll Gauze -Other Covering Left -Compression Wrap Alejandro Wrap -Tubular Bandage Single Layer -Size of Tubigrip Used Size F -Size E ($) -Size F ($) 1 -Other Treatment Response Procedure Tolerated Well Pain Scale: 0-10 Numeric Is Patient Pain Free? 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: CODE(S): L97.922 - Non-pressure chronic ulcer of unspecified part of left lower leg with fat layer exposed (2) Type 2 diabetes mellitus with diabetic polyneuropathy: CODE(S): E11.42 - Type 2 diabetes mellitus with diabetic polyneuropathy QUALIFIERS: Diabetes mellitus custodial insulin use: with rn long term care use Qualified Code(s): E11.42 - Type 2 diabetes mellitus with diabetic polyneuropathy; Z79.4 - halfway (current) use of insulin (3) PAD (peripheral artery disease): CODE(S): I73.9 - Peripheral vascular disease, unspecified (4) Delayed wound healing: CODE(S): T14.8 - Other injury of unspecified body region (5) Localized edema: CODE(S): R60.0 - Localized edema (6) Malnutrition: CODE(S): E46 - Unspecified protein-calorie malnutrition QUALIFIERS: Malnutrition type: protein-calorie malnutrition Protein-calorie malnutrition severity: moderate Qualified Code(s): E44.0 - Moderate protein-calorie malnutrition PLAN: I reviewed and discussed her case today. Debridement was performed today as noted in the clinical panel to all of the ulcer site. The following work up and care recommendations were made: Dressing: Epi fix, advancing healing product was applied to the lateral left leg ulcer (distal) site and was secured with a wound veil and Steri-Strips after v erbal consent was obtained. This was applied according standard protocol. Topical local anesthetic was utilized for pain control prior to this debridement. She tolerated this well. A dry dressing was applied with gauze and she is advised to keep a secondary dressing clean, dry, and intact until follow-up visit. It is noted this is a different site to the previously applied epifix product. This is medically necessary. Offload: Continue offloading pillow to take pressure off of the side of her leg; this is going well so far. she has a donut pillow and I recommend the use of a proximal blanket or pillow to offload her central leg ulcer cluster site. Ok to place partial weight to plantar left foot at this time. To avoid excessive ambulation which she is not doing anyways at this time. To avoid leg rotation onto the knob of her wheelchair. This is padded with cloth and this does not appear to be adequate. Vascular: She is under the care of Dr. Aguilar, vascular surgeon. On 08-20-21 she had catheterization in place to the anterior tibial artery and a balloon angioplasty performed in the popliteal into the proximal anterior tib. To follow-up as scheduled. Additional intervention is not planned at this time and she reports she followed with Dr. Aguilar this morning who wrote recommended monitoring her staged improvement. To continue on Plavix. Edema: I recommend upgrading to Tubigrip, elevation, and medication review at her senior living facility to reduce edema which is also contributing pressure to her ulcer sites on her left leg. To continue recently started furosemide. To reduce salt in diet. Infection: This has resolved and her surgical site has also healed. She was previously under the care of infectious disease specialist. Wound cx and surg cx with MRSA, raoultella, citrobacter. Clearance cx with some MRSA and anaerobes. Superficial raoultella was R to cefepime, but surg cx was S and clearance cx was neg for GNR. She was on vanc/meropenem with stop date 09/19/21. There is resolution of local and systemic signs of illness at this time. Pain: This is not present because of her neuropathy. Surgically, she had a transmetatarsal amputation and debridement of the ulcers on 08-08-[address] [facility]. Host factors: She is diabetic and her hemoglobin A1c was recently improved to 6.9% (08-07-21). To continue to work with primary care physician on medical management. I recommend nutritional supplementation optimize healing. She is on Vlad and Glucerna. It is also noted she is on a new course of prednisone for her chest and upper extremity dermatitis with subsequent wound formation. To complete the course as advised by her primary care physician. She understands prednisone may slow wound healing if using a chronic manner and this will be monitored. She resides in a senior living facility at this time. Paperwork was reviewed (summary of care). I answered all the patient's questions. To return to the wound healing center in 1 week or call sooner if the patient has any questions or concerns.
== END 2022-04-07 23:59 | disposition home or self-care (01) ==
LOC: WC 15:15
PROVIDERS: PCP Family Medicine Geriatric Medicine; Visit Provider Podiatrist
DX: E11.622 Type 2 diabetes mellitus with other skin ulcer (principal); E11.51 Type 2 diabetes mellitus with diabetic peripheral angiopathy without gangrene; L97.922 Non-pressure chronic ulcer of unspecified part of left lower leg with fat layer exposed; E44.0 Moderate protein-calorie malnutrition; E11.42 Type 2 diabetes mellitus with diabetic polyneuropathy; I73.9 Peripheral vascular disease, unspecified; Z79.4 Long term (current) use of insulin; R60.0 Localized edema
CPT/HCPCS: 11042; 15271; Q4186

== ENCOUNTER → 2022-04-07 | Outpatient (REF) | payer MEDICARE, MEDICAID, SELFPAY ==
[2022-04-07 08:54] LABS: Absolute Lymphocyte Count 0.86 X10^3/uL (0.83-4.51); Absolute Neutrophil Count 7.4 X10^3/uL (2.0-7.7); Basophil# 0.01 X10^3/uL; Basophil% 0.1 % (0-1); Eosinophil# 0.01 X10^3/uL; Eosinophils% 0.1 % (0-5); Hematocrit 23.6 % (37-47); Hemoglobin 7.6 g/dL (12.0-15.0); Lymphocyte # 0.86 X10^3/ul (0.83-4.51); Mean Corp Hgb Conc 32.2 g/dL (32-36); Mean Corpuscular Hgb 30.4 pg (27.0-32.0); Mean Corpuscular Volume 94.4 fL (81-99); Mean Platelet Vol. 10.5 fl (6.2-12.0); Monocyte# 0.27 X10^3/uL; Monocyte% 3.1 % (0-10); NRBC Flagged by Analyzer 0 % (0-5); Neutrophil # 7.41 X10^3/uL (2.7-7.7); Neutrophil % 86.1 % (47-70); POSITIVE MORPHOLOGY YES; Platelet Count 152 K/mm3 (150-450); RBC Distribution Width CV 14.2 % (11.6-14.6); RBC Distribution Width SD 48.7 fl (35.1-43.9); White Blood Count 8.6 K/mm3 (4.4-11.0)
[2022-04-07 08:56] LABS: Differential Indicated SCAN CRITERIA MET
[2022-04-07 09:21] LABS: Platelet Estimate ADEQUATE (ADEQ); Red Cell Morphology NORM C+C NORMAL (NORM C&C)
[2022-04-07 09:26] LABS: Anion Gap 9 (5-15); BUN 87 mg/dL (7-18); BUN/Creat Ratio 38.3 RATIO (10-20); Calcium,Total 7.7 mg/dL (8.5-10.1); Chloride 100 mmol/L (98-107); Creatinine, Serum 2.27 mg/dL (0.55-1.02); EST Glomerular Filtration Rate 23 mL/min (>60); Est Glom Filt Rate - Afr Amer 27 mL/min (>60); Glucose 86 mg/dL (74-106); Sodium Level 135 mmol/L (136-145)
== END | disposition home or self-care (01) ==
LOC: OLS.WHLEAS 04:00
PROVIDERS: PCP Family Medicine Geriatric Medicine; Referring Provider Family Medicine; Visit Provider Family Medicine
DX: I69.354 Hemiplegia and hemiparesis following cerebral infarction affecting left non-dominant side (principal); E11.628 Type 2 diabetes mellitus with other skin complications; E11.42 Type 2 diabetes mellitus with diabetic polyneuropathy
CPT/HCPCS: 36415; 80048; 85025

== ENCOUNTER → 2022-04-09 | Outpatient (REF) | payer SELFPAY | END | disposition home or self-care (01) | LOC: OLS.WHLTSB 06:00 | PROVIDERS: PCP Family Medicine Geriatric Medicine; Visit Provider Family Medicine | DX: I69.354 Hemiplegia and hemiparesis following cerebral infarction affecting left non-dominant side (principal); E11.638 Type 2 diabetes mellitus with other oral complications; E11.42 Type 2 diabetes mellitus with diabetic polyneuropathy; R50.9 Fever, unspecified ==

== ENCOUNTER → 2022-04-09 | Outpatient (REF) | payer MEDICARE, MEDICAID, SELFPAY ==
[2022-04-09 09:11] LABS: Hematocrit 21.8 % (37-47); Hemoglobin 7.1 g/dL (12.0-15.0); Mean Corp Hgb Conc 32.6 g/dL (32-36); Mean Corpuscular Hgb 30.7 pg (27.0-32.0); Mean Corpuscular Volume 94.4 fL (81-99); Mean Platelet Vol. 11.1 fl (6.2-12.0); Platelet Count 158 K/mm3 (150-450); RBC Distribution Width CV 14.2 % (11.6-14.6); RBC Distribution Width SD 48.9 fl (35.1-43.9); Red Blood Count 2.31 M/mm3 (4.2-5.4); White Blood Count 13.7 K/mm3 (4.4-11.0)
== END | disposition home or self-care (01) ==
LOC: OLS.WHLEAS 05:00
PROVIDERS: PCP Family Medicine Geriatric Medicine; Referring Provider Family Medicine; Visit Provider Family Medicine
DX: E11.22 Type 2 diabetes mellitus with diabetic chronic kidney disease (principal); I69.354 Hemiplegia and hemiparesis following cerebral infarction affecting left non-dominant side; E11.628 Type 2 diabetes mellitus with other skin complications; E11.42 Type 2 diabetes mellitus with diabetic polyneuropathy; N18.30 Chronic kidney disease, stage 3 unspecified
CPT/HCPCS: 36415; 85027; 87077; 87086; 87088; 87186

== ENCOUNTER → 2022-04-16 | Outpatient (REF) | payer MEDICARE, MEDICAID, SELFPAY ==
[2022-04-16 08:54] LABS: Albumin, Serum 1.3 g/dL (3.2-5.0); BUN 111 mg/dL (7-18); BUN/Creat Ratio 41.3 RATIO (10-20); Calcium,Total 7.9 mg/dL (8.5-10.1); Chloride 92 mmol/L (98-107); Creatinine, Serum 2.69 mg/dL (0.55-1.02); EST Glomerular Filtration Rate 19 mL/min (>60); Est Glom Filt Rate - Afr Amer 22 mL/min (>60); Glucose 174 mg/dL (74-106); Phosphorus 3.7 mg/dL (2.5-4.9); Potassium 4.1 mmol/L (3.5-5.1); Sodium Level 125 mmol/L (136-145)
== END | disposition home or self-care (01) ==
LOC: OLS.WHLEAS 05:00
PROVIDERS: PCP Family Medicine Geriatric Medicine; Visit Provider Family Medicine
DX: E11.22 Type 2 diabetes mellitus with diabetic chronic kidney disease (principal); I69.354 Hemiplegia and hemiparesis following cerebral infarction affecting left non-dominant side; E11.628 Type 2 diabetes mellitus with other skin complications; E11.42 Type 2 diabetes mellitus with diabetic polyneuropathy; N18.30 Chronic kidney disease, stage 3 unspecified
CPT/HCPCS: 36415; 80069

== ENCOUNTER → 2022-04-21 | Outpatient (REF) | payer MEDICARE, MEDICAID, SELFPAY ==
[2022-04-21 07:09] LABS: Hematocrit 20.6 % (37-47); Mean Corpuscular Hgb 30.7 pg (27.0-32.0); Mean Corpuscular Volume 90.4 fL (81-99); Mean Platelet Vol. 9.8 fl (6.2-12.0); POSITIVE COUNT YES; POSITIVE MORPHOLOGY YES; Platelet Count 365 K/mm3 (150-450); RBC Distribution Width CV 13.6 % (11.6-14.6); RBC Distribution Width SD 44.6 fl (35.1-43.9); Red Blood Count 2.28 M/mm3 (4.2-5.4); White Blood Count 15.6 K/mm3 (4.4-11.0)
[2022-04-21 07:21] LABS: Differential Indicated MANUAL DIFF
[2022-04-21 07:40] LABS: Lymphocyte 9 % (19-41); Metamyelocyte 1 % (0-1); Monocyte 3 % (0-10); Neutrophil-Segmented 87 % (47-70); Platelet Estimate ADEQUATE (ADEQ); Red Cell Morphology NORM C+C NORMAL (NORM C&C); Total Cells Counted 100 (MANUAL DIFF)
[2022-04-21 07:41] LABS: Absolute Neutrophil Count 13.6 X10^3/uL (2.0-7.7)
[2022-04-21 08:04] LABS: Anion Gap 12 (5-15); BUN 134 mg/dL (7-18); BUN/Creat Ratio 50.8 RATIO (10-20); Calcium,Total 7.9 mg/dL (8.5-10.1); Chloride 92 mmol/L (98-107); Creatinine, Serum 2.64 mg/dL (0.55-1.02); EST Glomerular Filtration Rate 19 mL/min (>60); Est Glom Filt Rate - Afr Amer 23 mL/min (>60); Glucose 161 mg/dL (74-106); Potassium 4.5 mmol/L (3.5-5.1); Sodium Level 126 mmol/L (136-145)
[2022-04-24 09:54] LABS: Pathologist Review Reviewed
== END | disposition home or self-care (01) ==
LOC: OLS.WHLEAS 05:00
PROVIDERS: PCP Family Medicine Geriatric Medicine; Visit Provider Family Medicine
DX: I69.354 Hemiplegia and hemiparesis following cerebral infarction affecting left non-dominant side (principal); E11.628 Type 2 diabetes mellitus with other skin complications; E11.42 Type 2 diabetes mellitus with diabetic polyneuropathy
CPT/HCPCS: 36415; 80048; 85025

== ENCOUNTER 2022-04-22 11:00 | Outpatient (RCR) | payer MEDICARE, MEDICAID, SELFPAY ==
[2022-04-08 00:48] VITALS: BP 150/69; PULSE 60; RESP 22; TEMP 36.4; BMI 36.6
[2022-04-08 15:01] VITALS: BP 126/59; PULSE 64; RESP 20; TEMP 36.8; BMI 36.6
--- NOTE | 2022-04-08 16:54 | PCM.WC.PN ---
History of Present Illness Date of Service: 04/08/22 Chief Complaint: Left lower extremity ulcers History of Wound: This 72-year-old female following up for left chronic leg ulcer. She also recently had vascular surgery intervention and continues on Plavix. She is taking nutritional supplementation. She is with a staff member from the [facility] facility she is residing in at this time. She denies fever, chill, nausea, vomiting. She also has some reduction in swelling of the lower extremities. She continues on furosemide. Objective Data Objective Data Vital Signs: Vital Signs Temp Pulse Resp BP 98.2 F 64 20 H 126/59 H 04/08/22 15:01 04/08/22 15:01 04/08/22 15:01 04/08/22 15:01 Weight: 90.904 kg Body Mass Index (BMI) 36.6 Physical Exam Extremity Extremity Narrative: the lateral left leg ulcer granular base noted with reduced depth. there is no longer any eschar, hypergranular, or deep tissue exposure. some peripheral epithelialization is noted. There is no crepitus, no visible abscess noted to the left foot, ankle or leg. There is also a left lateral proximal ulcer . continued lateral leg ecchymosis consistent with pressure changes Decreased sensation to the left foot c/w chronic peripheral neuropathy, no evidence of acute ischemia to the bilateral foot or ankle, no evidence of charcot neuroarthropathy or compartment syndrome either. Reduced palpable pulse left. Lower extremity edema mild to moderate. Debridement Note Debridement Note Wound debrided: left leg (inferior , superior) Wound Grade/Stage: 1,1 Type of Debridement: Excisional debridement Anesthesia Used: 4% Lidocaine Solution Depth: in the subcutaneous layer Percentage of wound debrided: 100 Instrument Used: #15 blade Tissue Removed: fibrous, devitalized subcutaneous, biofilm, slough Severity: Fat Layer Exposed Amount of bleeding with debridement: Mild Bleeding Controlled with: Pressure Patient tolerated procedure: Patient tolerated procedure well Post-Debridement Measurements and Additional Note: Post-Debridement Measurements/Treatment SETH - Nurse 1 - General Ulcer Assessment Start: 04/08/22 15:01 Freq: Status: Active Protocol: MARILIA Activity Type Activity Date Activity User E-Sign Co-Sign Detail Recorded Client Recorded Date Recorded By Document 04/08/22 15:01 BLUE [id number] 04/08/22 15:05 DL 04/08/22 15:01 - Today's Visit Information Type of service Follow-up Visit (Physician/MAKEUP ARTIST ) Arrival Mode Wheelchair Transfer Assistance Manual Transfer Assist (Other) x2 Patient Identification Verified (Name & Yes ) Patient Requires Transmission-Based No Precautions Height and Weight Body Mass Index (BMI) 36.6 BMI Classification Obese Vital Signs Temperature (97.8 F-99.1 F) 98.2 F Temperature Source Temporal Pulse Rate (60-100) 64 Pulse Location Monitor Respiratory Rate (12-18) 20 H Respiratory rate source Observation Blood Pressure (90/60-120/80) 126/59 H Blood Pressure Mean (mm Hg) 81 Source Monitor History Since Last Visit- (Skip if this is Patient's initial visit) Have you changed medications since your No last visit? Any new allergies or adverse reactions No Had a fall/change in ADL's that may No increase risk of falls Signs or symptoms of abuse and/or No neglect since last visit Have you been in the hospital since your No last visit? Has dressing in place as prescribed No Has compression in place as prescribed Yes Has offloadiing in place as prescribed N/A Experienced any changes in pain level or No management Pain Scale: 0-10 Numeric Is Patient Pain Free? Yes - Nurse 1 - General Ulcer Measurement Start: 04/08/22 15:01 Freq: Status: Active Protocol: Activity Type Activity Date Activity User E-Sign Co-Sign Detail Recorded Client Recorded Date Recorded By Document 04/08/22 15:01 [id number] 04/08/22 15:05 BLUE 04/08/22 15:01 Wound Center Nurse 1 5-left superior leg ulcer -Current Size (cm) - Length 2 -Current Size (cm) - Width 0.6 -Current Size (cm) - Depth 0.1 -Total Square Cm 1.2 -Photo Taken No -Exudate Amt Small -Wound Margin Distinct, Outline Attached -Granulation Amt Medium (34-66%) -Granulation Quality Red -Necrosis Amt Medium (34-66%) -Necrotic Tissue Type Adherent Slough -Structure Exposed N/A -Texture (Frances-wound Skin Appearance) Localized Edema ,Scarring -Moisture (Frances-wound Skin Appearance) No Abnormality -Color (Frances-wound Skin Appearance) No Abnormality -Temperature (Frances-wound Skin No Abnormality Appearance) (Pt Warm) -Tenderness on Palpation (Frances-wound No Skin Appearance) -Ulcer Cleansing Soap and Water -Foul Odor after Cleansing No -Anesthetic Used 4% Lidocaine Solution 3. L lateral LE -Current Size (cm) - Length 3 -Current Size (cm) - Width 1.1 -Current Size (cm) - Depth 0.1 -Total Square Cm 3.3 -Photo Taken No -Exudate Amt Small -Exudate Type Serosanguineous -Wound Margin Distinct, Outline Attached -Granulation Amt Medium (34-66%) -Granulation Quality Red -Necrosis Amt Medium (34-66%) -Necrotic Tissue Type Adherent Slough -Texture (Frances-wound Skin Appearance) Localized Edema ,Scarring -Moisture (Frances-wound Skin Appearance) No Abnormality -Color (Frances-wound Skin Appearance) No Abnormality -Temperature (Frances-wound Skin No Abnormality Appearance) (Pt Warm) -Ulcer Cleansing Soap and Water -Anesthetic Used 4% Lidocaine Solution, Cetacaine WC - Nurse 2 - General Ulcer CM Notes Start: 04/08/22 15:01 Freq: Status: Active Protocol: Activity Type Activity Date Activity User E-Sign Co-Sign Detail Recorded Client Recorded Date Recorded By Document 04/08/22 15:26 [id number] 04/08/22 15:29 04/08/22 15:26 Wound Center Nurse 2 5-left superior leg ulcer -Time 15:26 -Correct Patient Yes -Correct Side, Site, Position Yes -Correct Procedure Yes -Procedure Performed Yes -Type of Procedure Debridement -Clinical Debridement Subcutaneous -Tissue Removed Subcutaneous -Post Debridement (cm) - Length 2.1 -Post Debridement (cm) - Width 0.6 -Post Debridement (cm) - Depth 0.1 -Total Square (Post) (cm) 1.26 -Area of Debridement (cm) - Length 2.1 -Area of Debridement (cm) - Width 0.6 -Total Square (Area) (cm) 1.26 -Tunneling No -Undermining/Tunneling No -Circular Undermining No -Wound/Ulcer Outcome Not Healed -Ulcer Cleansing Rinsed/ Irrigated with Saline -Foul Odor after Cleansing No -Bioengineered Tissue Yes -Type of Bioengineered Tissue Epifix -Expiration Date 01/06/27 -Product Lot Number [id number] -Percent Used 100 -Lot number of Saline Used [id number] -Bleeding Controlled with Pressure -Treatment Response Procedure Tolerated Well -Offloading No -Debridement - Subq, 1st 20sq cm No -Apply Skin Sub - 1st 25 sq cm - Legs 1 -Epifix (per sq cm) 4 3. L lateral LE -Time 15:28 -Correct Patient Yes -Correct Side, Site, Position Yes -Correct Procedure Yes -Procedure Performed Yes -Type of Procedure Debridement -Clinical Debridement Subcutaneous -Tissue Removed Subcutaneous -Post Debridement (cm) - Length 3.0 -Post Debridement (cm) - Width 1.2 -Post Debridement (cm) - Depth 0.1 -Total Square (Post) (cm) 3.60 -Area of Debridement (cm) - Length 3.0 -Area of Debridement (cm) - Width 1.2 -Total Square (Area) (cm) 3.60 -Tunneling No -Undermining/Tunneling No -Circular Undermining No -Wound/Ulcer Outcome Not Healed -Ulcer Cleansing Rinsed/ Irrigated with Saline -Foul Odor after Cleansing No -Bioengineered Tissue No -Bleeding Controlled with Pressure -Treatment Response Procedure Tolerated Well -Offloading No -Debridement - Subq, 1st 20sq cm Yes Pain Scale: 0-10 Numeric Is Patient Pain Free? Yes - Nurse 3 - General Ulcer D/C NN Start: 04/08/22 15:01 Freq: Status: Active Protocol: Activity Type Activity Date Activity User E-Sign Co-Sign Detail Recorded Client Recorded Date Recorded By Document 04/08/22 15:31 [facility] [id number] 04/08/22 15:32 [facility] 04/08/22 15:31 Wound Care Nurse 3 5-left superior leg ulcer -Primary Dressing Applied Mepilex Border -Other Dressing EPIFIX -Mepilex Border 1 3. L lateral LE -Primary Dressing Applied Mepilex Border -Other Dressing EPIFIX -Mepilex Border 0 Left -Tubular Bandage Single Layer -Size of Tubigrip Used Size F -Size F ($) 1 Treatment Response Procedure Tolerated Well Pain Scale: 0-10 Numeric Is Patient Pain Free? 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: CODE(S): L97.922 - Non-pressure chronic ulcer of unspecified part of left lower leg with fat layer exposed (2) Type 2 diabetes mellitus with diabetic polyneuropathy: CODE(S): E11.42 - Type 2 diabetes mellitus with diabetic polyneuropathy QUALIFIERS: Diabetes mellitus alf insulin use: with joint terminal attack controller use Qualified Code(s): E11.42 - Type 2 diabetes mellitus with diabetic polyneuropathy; Z79.4 - bed bug exterminator (current) use of insulin (3) PAD (peripheral artery disease): CODE(S): I73.9 - Peripheral vascular disease, unspecified (4) Delayed wound healing: CODE(S): T14.8 - Other injury of unspecified body region (5) Localized edema: CODE(S): R60.0 - Localized edema (6) Malnutrition: CODE(S): E46 - Unspecified protein-calorie malnutrition QUALIFIERS: Malnutrition type: protein-calorie malnutrition Protein-calorie malnutrition severity: moderate Qualified Code(s): E44.0 - Moderate protein-calorie malnutrition PLAN: I reviewed and discussed her case today. Debridement was performed today as noted in the clinical panel to all of the ulcer site. The following work up and care recommendations were made: Dressing: Epi fix, advancing healing product was applied to the lateral left leg ulcer (distal) site and was secured with a wound veil and Steri-Strips after verbal consent was obtained. This was applied according standard protocol. Topical local anesthetic was utilized for pain control prior to this debridement. She tolerated this well. A dry dressing was applied with gauze and she is advised to keep a secondary dressing clean, dry, and intact until follow-up visit. It is noted this is a different site to the previously applied epifix product. This is medically necessary. Offload: Continue offloading pillow to take pressure off of the side of her leg; this is going well so far. she has a donut pillow and I recommend the use of a proximal blanket or pillow to offload her central leg ulcer cluster site. Ok to place partial weight to plantar left foot at this time. To avoid excessive ambulation which she is not doing anyways at this time. To avoid leg rotation onto the knob of her wheelchair. This is padded with cloth and this does not appear to be adequate. I recommend egg krate padded device for further protection. Vascular: She is under the care of Dr. Aguilar, vascular surgeon. On 08-20-21 she had catheterization in place to the anterior tibial artery and a balloon angioplasty performed in the popliteal into the proximal anterior tib. To follow-up as scheduled. Additional intervention is not planned at this time and she reports she followed with Dr. Aguilar this morning who wrote recommended monitoring her staged improvement. To continue on Plavix. Edema: I recommend upgrading to Tubigrip, elevation, and medication review at her [facility] facility to reduce edema which is also contributing pressure to her ulcer sites on her left leg. To continue recently started furosemide. To reduce salt in diet. Infection: This has resolved and her surgical site has also healed. She was previously under the care of infectious disease specialist. Wound cx and surg cx with MRSA, raoultella, citrobacter. Clearance cx with some MRSA and anaerobes. Superficial raoultella was R to cefepime, but surg cx was S and clearance cx was neg for GNR. She was on vanc/meropenem with stop date 09/19/21. There is resolution of local and systemic signs of illness at this time. Pain: This is not present because of her neuropathy. Surgically, she had a transmetatarsal amputation and debridement of the ulcers on 08-08-21 at [facility]. Host factors: She is diabetic and her hemoglobin A1c was recently improved to 6.9% (08-07-21). To continue to work with primary care physician on medical management. I recommend nutritional supplementation optimize healing. She is on Vlad and Glucerna. It is also noted she is on a new course of prednisone for her chest and upper extremity dermatitis with subsequent wound formation. To complete the course as advised by her primary care physician. She understands prednisone may slow wound healing if using a chronic manner and this will be monitored. She resides in a [facility] facility at this time. Paperwork was reviewed (summary of care). I answered all the patient's questions. To return to the wound healing center in 1 week or call sooner if the patient has any questions or concerns.
[2022-04-15 14:26] VITALS: BP 156/55; PULSE 58; RESP 20; TEMP 36.3; BMI 36.6
--- NOTE | 2022-04-15 16:28 | PCM.WC.PN ---
History of Present Illness Date of Service: 04/15/22 Chief Complaint: Left lower extremity ulcers History of Wound: This 72-year-old female following up for left chronic leg ulcer. She also recently had vascular surgery intervention and continues on Plavix. She is taking nutritional supplementation. She is with a staff member from the half-way facility she is residing in at this time. She denies fever, chill, nausea, vomiting. She also has some reduction in swelling of the lower extremities. She continues on furosemide. she continues to inadequatly offload the leg ulcer site. Progress of Wound: new central ulcer/ worse Objective Data Objective Data Vital Signs: Vital Signs Temp Pulse Resp BP 97.4 F L 58 L 20 H 156/55 H 04/15/22 14:26 04/15/22 14:26 04/15/22 14:26 04/15/22 14:26 Weight: 90.904 kg Body Mass Index (BMI) 36.6 Physical Exam Extremity Extremity Narrative: the lateral left leg ulcer granular base noted with reduced depth. there is no longer any eschar, hypergranular, or deep tissue exposure. some peripheral epithelialization is noted. There is no crepitus, no visible abscess noted to the left foot, ankle or leg. There is also a left lateral proximal ulcer; new central ulcer now in addition to distal and proximal ulcer sites . continued lateral leg ecchymosis consistent with pressure changes Decreased sensation to the left foot c/w chronic peripheral neuropathy, no evidence of acute ischemia to the bilateral foot or ankle, no evidence of charcot neuroarthropathy or compartment syndrome either. Reduced palpable pulse left. Lower extremity edema moderate. Debridement Note Debridement Note Wound debrided: lateral left leg (distal, central, proximal) Wound Grade/Stage: 1,1,1 Type of Debridement: Excisional debridement Anesthesia Used: 4% Lidocaine Solution Depth: in the subcutaneous layer Percentage of wound debrided: 100 Instrument Used: #15 blade Tissue Removed: fibrous, devitalized subcutaneous, biofilm, slough Severity: Fat Layer Exposed Amount of bleeding with debridement: Mild Bleeding Controlled with: Pressure Patient tolerated procedure: Patient tolerated procedure well Post-Debridement Measurements and Additional Note: Post-Debridement Measurements/Treatment SETH - Nurse 1 - General Ulcer Assessment Start: 04/08/22 15:01 Freq: Status: Active Protocol: MARILIA Activity Type Activity Date Activity User E-Sign Co-Sign Detail Recorded Client Recorded Date Recorded By Document 04/08/22 15:01 DL [id number] 04/08/22 15:05 DL Document 04/15/22 14:26 DL [id number] 04/15/22 14:37 DL 04/08/22 04/15/22 15:01 14:26 - Today's Visit Information Type of service Follow-up Visit Follow-up Visit (Physician/COOK CANDY (Physician/COOK CANDY ) ) Arrival Mode Wheelchair Wheelchair Transfer Assistance Manual None Transfer Assist (Other) x2 Patient Identification Verified (Name & Yes Yes ) Patient Requires Transmission-Based No No Precautions Height and Weight Body Mass Index (BMI) 36.6 36.6 BMI Classification Obese Obese Vital Signs Temperature (97.8 F-99.1 F) 98.2 F 97.4 F L Temperature Source Temporal Temporal Pulse Rate (60-100) 64 58 L Pulse Location Monitor Monitor Respiratory Rate (12-18) 20 H 20 H Respiratory rate source Observation Observation Blood Pressure (90/60-120/80) 126/59 H 156/55 H Blood Pressure Mean (mm Hg) 81 88 Source Monitor Monitor History Since Last Visit- (Skip if this is Patient's initial visit) Have you changed medications since your No No last visit? Any new allergies or adverse reactions No No Had a fall/change in ADL's that may No No increase risk of falls Signs or symptoms of abuse and/or No No neglect since last visit Have you been in the hospital since your No No last visit? Has dressing in place as prescribed No Yes Has compression in place as prescribed Yes Yes Has offloadiing in place as prescribed N/A Yes Experienced any changes in pain level or No No management Left Footwear No Footwear Right Footwear No Footwear Pain Scale: 0-10 Numeric Is Patient Pain Free? Yes Yes - Nurse 1 - General Ulcer Measurement Start: 04/08/22 15:01 Freq: Status: Active Protocol: Activity Type Activity Date Activity User E-Sign Co-Sign Detail Recorded Client Recorded Date Recorded By Document 04/08/22 15:01 [id number] 04/08/22 15:05 DL Document 04/15/22 14:26 [id number] 04/15/22 14:37 DL 04/08/22 04/15/22 15:01 14:26 Wound Center Nurse 1 5-left superior leg ulcer -Current Size (cm) - Length 2 7 -Current Size (cm) - Width 0.6 1.1 -Current Size (cm) - Depth 0.1 0.2 -Total Square Cm 1.2 7.7 -Photo Taken No No -Exudate Amt Small Medium -Exudate Type Serosanguineous -Wound Margin Distinct, Distinct, Outline Outline Attached Attached -Granulation Amt Medium (34-66%) Small (1-33%) -Granulation Quality [place] -Necrosis Amt Medium (34-66%) Large (67-100%) -Necrotic Tissue Type Adherent Slough Adherent Slough -Structure Exposed N/A N/A -Texture (Frances-wound Skin Appearance) Localized Edema Localized Edema ,Scarring ,Scarring -Moisture (Frances-wound Skin Appearance) No Abnormality Dry/Scaly -Color (Frances-wound Skin Appearance) No Abnormality Hemosiderin Staining -Temperature (Frances-wound Skin No Abnormality No Abnormality Appearance) (Pt Warm) (Pt Warm) -Tenderness on Palpation (Frances-wound No No Skin Appearance) -Ulcer Cleansing Soap and Water Rinsed/ Irrigated with Saline -Foul Odor after Cleansing No No -Anesthetic Used 4% Lidocaine 4% Lidocaine Solution Solution 3. L lateral LE -Current Size (cm) - Length 3 2.8 -Current Size (cm) - Width 1.1 2 -Current Size (cm) - Depth 0.1 0.2 -Total Square Cm 3.3 5.6 -Photo Taken No No -Exudate Amt Small Medium -Exudate Type Serosanguineous Serosanguineous -Wound Margin Distinct, Distinct, Outline Outline Attached Attached -Granulation Amt Medium (34-66%) Medium (34-66%) -Granulation Quality [place] -Necrosis Amt Medium (34-66%) Medium (34-66%) -Necrotic Tissue Type Adherent Slough Adherent Slough -Structure Exposed N/A -Texture (Frances-wound Skin Appearance) Localized Edema Localized Edema ,Scarring ,Scarring -Moisture (Frances-wound Skin Appearance) No Abnormality Weeping -Color (Frances-wound Skin Appearance) No Abnormality Hemosiderin Staining -Temperature (Frances-wound Skin No Abnormality No Abnormality Appearance) (Pt Warm) (Pt Warm) -Ulcer Cleansing Soap and Water Rinsed/ Irrigated with Saline -Foul Odor after Cleansing No -Anesthetic Used 4% Lidocaine 4% Lidocaine Solution, Solution Cetacaine WC - Nurse 2 - General Ulcer CM Notes Start: 04/08/22 15:01 Freq: Status: Active Protocol: Activity Type Activity Date Activity User E-Sign Co-Sign Detail Recorded Client Recorded Date Recorded By Document 04/08/22 15:26 [id number] 04/08/22 15:29 Document 04/15/22 15:30 [id number] 04/15/22 15:32 04/08/22 04/15/22 15:26 15:30 Wound Center Nurse 2 5-left superior leg ulcer -Time 15:26 15:30 -Correct Patient Yes Yes -Correct Side, Site, Position Yes Yes -Correct Procedure Yes Yes -Procedure Performed Yes Yes -Type of Procedure Debridement Debridement -Clinical Debridement Subcutaneous Subcutaneous -Tissue Removed Subcutaneous Subcutaneous -Post Debridement (cm) - Length 2.1 7 -Post Debridement (cm) - Width 0.6 1.2 -Post Debridement (cm) - Depth 0.1 0.2 -Total Square (Post) (cm) 1.26 8.4 -Area of Debridement (cm) - Length 2.1 7.0 -Area of Debridement (cm) - Width 0.6 1.2 -Total Square (Area) (cm) 1.26 8.40 -Tunneling No No -Undermining/Tunneling No No -Circular Undermining No No -Wound/Ulcer Outcome Not Healed Not Healed -Ulcer Cleansing Rinsed/ Rinsed/ Irrigated with Irrigated with Saline Saline -Foul Odor after Cleansing No No -Bioengineered Tissue Yes No -Type of Bioengineered Tissue Epifix -Expiration Date 01/06/27 -Product Lot Number [id number] -Percent Used 100 -Lot number of Saline Used [id number] -Bleeding Controlled with Pressure Pressure -Treatment Response Procedure Procedure Tolerated Well Tolerated Well -Offloading No No -Debridement - Subq, 1st 20sq cm No Yes -Apply Skin Sub - 1st 25 sq cm - Legs 1 -Epifix (per sq cm) 4 3. L lateral LE -Time 15:28 15:31 -Correct Patient Yes Yes -Correct Side, Site, Position Yes Yes -Correct Procedure Yes Yes -Procedure Performed Yes Yes -Type of Procedure Debridement Debridement -Clinical Debridement Subcutaneous Subcutaneous -Tissue Removed Subcutaneous Subcutaneous -Post Debridement (cm) - Length 3.0 2.8 -Post Debridement (cm) - Width 1.2 2.1 -Post Debridement (cm) - Depth 0.1 0.2 -Total Square (Post) (cm) 3.60 5.88 -Area of Debridement (cm) - Length 3.0 2.8 -Area of Debridement (cm) - Width 1.2 2.1 -Total Square (Area) (cm) 3.60 5.88 -Tunneling No No -Undermining/Tunneling No No -Circular Undermining No No -Wound/Ulcer Outcome Not Healed Not Healed -Ulcer Cleansing Rinsed/ Rinsed/ Irrigated with Irrigated with Saline Saline -Foul Odor after Cleansing No No -Bioengineered Tissue No No -Bleeding Controlled with Pressure Pressure -Treatment Response Procedure Procedure Tolerated Well Tolerated Well -Offloading No No -Debridement - Subq, 1st 20sq cm Yes Yes Pain Scale: 0-10 Numeric Is Patient Pain Free? Yes Yes WC - Nurse 3 - General Ulcer D/C NN Start: 04/08/22 15:01 Freq: Status: Active Protocol: Activity Type Activity Date Activity User E-Sign Co-Sign Detail Recorded Client Recorded Date Recorded By Document 04/08/22 15:31 [facility] [id number] 04/08/22 15:32 [facility] Document 04/15/22 15:52 [place] [id number] 04/15/22 15:53 [place] 04/08/22 04/15/22 15:31 15:52 Wound Care Nurse 3 5-left superior leg ulcer -Ulcer Cleansing Rinsed/ Irrigated with Saline -Foul Odor after Cleansing No -Negative Pressure Wound Therapy N/A -Primary Dressing Applied Mepilex Border Promogran Effie Matter -Other Dressing EPIFIX -Primary Dressing Covered/Secured with Dry Gauze & Roll Gauze, Secured with Tape -Mepilex Border 1 -Promogran Effie Matter 1 3. L lateral LE -Ulcer Cleansing Rinsed/ Irrigated with Saline -Foul Odor after Cleansing No -Negative Pressure Wound Therapy N/A -Primary Dressing Applied Mepilex Border Promogran Effie Matter -Other Dressing EPIFIX -Primary Dressing Covered/Secured with Dry Gauze & Roll Gauze, Secured with Tape -Mepilex Border 0 -Promogran Effie Matter 0 Left -Compression Wrap Alejandro Wrap -Tubular Bandage Single Layer Single Layer -Size of Tubigrip Used Size F Size F -Size F ($) 1 1 Treatment Response Procedure Tolerated Well Pain Scale: 0-10 Numeric Is Patient Pain Free? 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: CODE(S): L97.922 - Non-pressure chronic ulcer of unspecified part of left lower leg with fat layer exposed (2) Type 2 diabetes mellitus with diabetic polyneuropathy: CODE(S): E11.42 - Type 2 diabetes mellitus with diabetic polyneuropathy QUALIFIERS: Diabetes mellitus long lines operator insulin use: with detention use Qualified Code(s): E11.42 - Type 2 diabetes mellitus with diabetic polyneuropathy; Z79.4 - smasher hand (current) use of insulin (3) PAD (peripheral artery disease): CODE(S): I73.9 - Peripheral vascular disease, unspecified (4) Delayed wound healing: CODE(S): T14.8 - Other injury of unspecified body region (5) Localized edema: CODE(S): R60.0 - Localized edema (6) Malnutrition: CODE(S): E46 - Unspecified protein-calorie malnutrition QUALIFIERS: Malnutrition type: protein-calorie malnutrition Protein-calorie malnutrition severity: moderate Qualified Code(s): E44.0 - Moderate protein-calorie malnutrition PLAN: I reviewed and discussed her case today. Debridement was performed today as noted in the clinical panel to all of the ulcer site. The following work up and care recommendations were made: Dressing: Epi fix, advancing healing product application course has already been completed. To change daily now with [employer]. Offload: Continue offloading pillow to take pressure off of the side of her leg; this is going well so far. she has a donut pillow and I recommend the use of a proximal blanket or pillow to offload her central leg ulcer cluster site. Ok to place partial weight to plantar left foot at this time. To avoid excessive ambulation which she is not doing anyways at this time. To avoid leg rotation onto the knob of her wheelchair. This is padded with cloth and this does not appear to be adequate. I recommend egg krate padded device for further protection. PT/OT recommended and ordered to help with this task. Discussed plan with shelter staff member today as well. Vascular: She is under the care of Dr. Aguilar, vascular surgeon. On 08-20-21 she had catheterization in place to the anterior tibial artery and a balloon angioplasty performed in the popliteal into the proximal anterior tib. To follow-up as scheduled. Additional intervention is not planned at this time and she reports she followed with Dr. Aguilar this morning who wrote recommended monitoring her staged improvement. To continue on Plavix. Edema: I recommend upgrading to Tubigrip, elevation, and medication review at her half-way facility to reduce edema which is also contributing pressure to her ulcer sites on her left leg. To continue recently started furosemide. To reduce salt in diet. Infection: This has resolved and her surgical site has also healed. She was previously under the care of infectious disease specialist. Wound cx and surg cx with MRSA, raoultella, citrobacter. Clearance cx with some MRSA and anaerobes. Superficial raoultella was R to cefepime, but surg cx was S and clearance cx was neg for GNR. She was on vanc/meropenem with stop date 09/19/21. There is resolution of local and systemic signs of illness at this time. Pain: This is not present because of her neuropathy. Surgically, she had a transmetatarsal amputation and debridement of the ulcers on 08-08-21 at [facility]. Host factors: She is diabetic and her hemoglobin A1c was recently improved to 6.9% (08-07-21). To continue to work with primary care physician on medical management. I recommend nutritional supplementation optimize healing. She is on Vlad and Glucerna. It is also noted she is on a new course of prednisone for her chest and upper extremity dermatitis with subsequent wound formation. To complete the course as advised by her primary care physician. She understands prednisone may slow wound healing if using a chronic manner and this will be monitored. She resides in a half-way facility at this time. Paperwork was reviewed (summary of care). I answered all the patient's questions. To return to the wound healing center in 1 week or call sooner if the patient has any questions or concerns. Note: [employer] speech recognition client services analyst software was used to create portions of this document. Sound-alike and misspelled words, as well as other client services analyst errors may be contained in the documentation. 13 minutes was spent on this encounter. This included face to face and non face to face care including preparing for the visit, reviewing the history, performing the exam, counseling and providing education to the patient, family, or caregiver, ordering medications/test/ procedures if indicated as documented, communicating with other healthcare providers, documenting information in the medical record, interpreting / sharing this information when indicated as documented, and care coordination.
[2022-04-22 11:09] VITALS: BP 132/60; PULSE 54; RESP 20; TEMP 36.3; BMI 36.6
--- NOTE | 2022-04-22 15:16 | PN.PCM_ITS ---
History of Present Illness Date of Service: 04/22/22 Chief Complaint: Left lower extremity ulcers History of Wound: This 72-year-old female following up for left chronic leg ulcer. She also recently had vascular surgery intervention and continues on Plavix. She is taking nutritional supplementation. She is with a staff member from the shelter facility she is residing in at this time. She denies fever, chill, nausea, vomiting. She also has some reduction in swelling of the lower extremities. She continues on furosemide. she continues to inadequatly offload the leg ulcer site. Nursing staff is working diligently to try to offload her sites better than. Progress of Wound: Stable Objective Data Objective Data Vital Signs: Vital Signs Temp Pulse Resp BP 97.4 F L 54 L 20 H 132/60 H 04/22/22 11:09 04/22/22 11:09 04/22/22 11:09 04/22/22 11:09 Weight: 90.904 kg Body Mass Index (BMI) 36.6 Physical Exam Extremity Extremity Narrative: the lateral left leg ulcer granular base noted with reduced depth. there is no longer any eschar, hypergranular, or deep tissue exposure. some peripheral epithelialization is noted. There is no crepitus, no visible abscess noted to the left foot, ankle or leg. There is also a left lateral proximal ulcer; new central ulcer now in addition to distal and proximal ulcer sites . continued lateral leg ecchymosis consistent with pressure changes Decreased sensation to the left foot c/w chronic peripheral neuropathy, no evidence of acute ischemia to the bilateral foot or ankle, no evidence of charcot neuroarthropathy or compartment syndrome either. Reduced palpable pulse left. Lower extremity edema moderate. Debridement Note Debridement Note Wound debrided: lateral left leg (distal, central, proximal) Wound Grade/Stage: 1,1,1 Type of Debridement: Excisional debridement Anesthesia Used: 4% Lidocaine Solution Depth: in the subcutaneous layer Percentage of wound debrided: 100 Instrument Used: #15 blade Tissue Removed: fibrous, devitalized subcutaneous, biofilm, slough Severity: Fat Layer Exposed Amount of bleeding with debridement: Mild Bleeding Controlled with: Pressure Patient tolerated procedure: Patient tolerated procedure well Post-Debridement Measurements and Additional Note: Post-Debridement Measurements/Treatment WC - Nurse 1 - General Ulcer Assessment Start: 04/08/22 15:01 Freq: Status: Active Protocol: SETH.LOWEXT Activity Type Activity Date Activity User E-sign Co-sign Detail Recorded Client Recorded Date Recorded By Document 04/08/22 15:01 DL [id number] 04/08/22 15:05 DL Document 04/15/22 14:26 DL [id number] 04/15/22 14:37 DL Document 04/22/22 11:09 DL [id number] 04/22/22 11:19 DL 04/08/22 04/15/22 04/22/22 15:01 14:26 11:09 - Today's Visit Information Type of service Follow-up Visit Follow-up Visit Follow-up Visit (Physician/DIRECTOR RADIATION ONCOLOGY (Physician/DIRECTOR RADIATION ONCOLOGY (Physician/DIRECTOR RADIATION ONCOLOGY ) ) ) Arrival Mode Wheelchair Wheelchair Stretcher Transfer Assistance Manual None None Transfer Assist (Other) x2 Patient Identification Verified (Name & Yes Yes Yes ) Patient Requires Transmission-Based No No No Precautions Finger Stick Blood Sugar(mg/dl) (if unsure indicated): Blood Sugar Stated by Patient Height and Weight Body Mass Index (BMI) 36.6 36.6 36.6 BMI Classification Obese Obese Obese Vital Signs Temperature (97.8 F-99.1 F) 98.2 F 97.4 F L 97.4 F L Temperature Source Temporal Temporal Temporal Pulse Rate (60-100) 64 58 L 54 L Pulse Location Monitor Monitor Monitor Respiratory Rate (12-18) 20 H 20 H 20 H Respiratory rate source Observation Observation Observation Blood Pressure (90/60-120/80) 126/59 H 156/55 H 132/60 H Blood Pressure Mean (mm Hg) 81 88 84 Source Monitor Monitor Monitor History Since Last Visit- (Skip if this is Patient's initial visit) Have you changed medications since your No No No last visit? Any new allergies or adverse reactions No No No Had a fall/change in ADL's that may No No No increase risk of falls Signs or symptoms of abuse and/or No No No neglect since last visit Have you been in the hospital since your No No No last visit? Has dressing in place as prescribed No Yes Yes Has compression in place as prescribed Yes Yes Yes Has offloadiing in place as prescribed N/A Yes Yes Experienced any changes in pain level or No No management Left Footwear No Footwear Right Footwear No Footwear Pain Scale: 0-10 Numeric Is Patient Pain Free? Yes Yes Yes WC - Nurse 1 - General Ulcer Measurement Start: 04/08/22 15:01 Freq: Status: Active Protocol: Activity Type Activity Date Activity User E-sign Co-sign Detail Recorded Client Recorded Date Recorded By Document 04/08/22 15:01 DL [id number] 04/08/22 15:05 DL Document 04/15/22 14:26 DL [id number] 04/15/22 14:37 DL Document 04/22/22 11:09 DL [id number] 04/22/22 11:19 DL 04/08/22 04/15/22 04/22/22 15:01 14:26 11:09 Wound Center Nurse 1 5-left superior leg ulcer -Current Size (cm) - Length 2 7 0.1 -Current Size (cm) - Width 0.6 1.1 0.1 -Current Size (cm) - Depth 0.1 0.2 0.1 -Total Square Cm 1.2 7.7 0.01 -Photo Taken No No No -Exudate Amt Small Medium None Present -Exudate Type Serosanguineous -Wound Margin Distinct, Distinct, Outline Outline Attached Attached -Granulation Amt Medium (34-66%) Small (1-33%) Large (67-100%) -Granulation Quality Red [place] -Necrosis Amt Medium (34-66%) Large (67-100%) None Present (0 %) -Necrotic Tissue Type Adherent Slough Adherent Slough -Structure Exposed N/A N/A N/A -Texture (Frances-wound Skin Appearance) Localized Edema Localized Edema Localized Edema ,Scarring ,Scarring ,Scarring -Moisture (Frances-wound Skin Appearance) No Abnormality Dry/Scaly Dry/Scaly -Color (Frances-wound Skin Appearance) No Abnormality Hemosiderin Hemosiderin Staining Staining -Temperature (Frances-wound Skin No Abnormality No Abnormality No Abnormality Appearance) (Pt Warm) (Pt Warm) (Pt Warm) -Tenderness on Palpation (Frances-wound No No No Skin Appearance) -Ulcer Cleansing Soap and Water Rinsed/ Soap and Water Irrigated with Saline -Foul Odor after Cleansing No No No -Anesthetic Used 4% Lidocaine 4% Lidocaine 5% Lidocaine Solution Solution Gel 3. L lateral LE -Current Size (cm) - Length 3 2.8 3.2 -Current Size (cm) - Width 1.1 2 0.6 -Current Size (cm) - Depth 0.1 0.2 0.4 -Total Square Cm 3.3 5.6 1.92 -Photo Taken No No No -Exudate Amt Small Medium Small -Exudate Type Serosanguineous Serosanguineous -Wound Margin Distinct, Distinct, Distinct, Outline Outline Outline Attached Attached Attached -Granulation Amt Medium (34-66%) Medium (34-66%) Medium (34-66%) -Granulation Quality Red [place] Red -Necrosis Amt Medium (34-66%) Medium (34-66%) Medium (34-66%) -Necrotic Tissue Type Adherent Slough Adherent Slough Adherent Slough -Structure Exposed N/A N/A -Texture (Frances-wound Skin Appearance) Localized Edema Localized Edema Localized Edema ,Scarring ,Scarring ,Scarring -Moisture (Frances-wound Skin Appearance) No Abnormality Weeping Dry/Scaly -Color (Frances-wound Skin Appearance) No Abnormality Hemosiderin Hemosiderin Staining Staining -Temperature (Frances-wound Skin No Abnormality No Abnormality No Abnormality Appearance) (Pt Warm) (Pt Warm) (Pt Warm) -Tenderness on Palpation (Frances-wound Yes Skin Appearance) -Ulcer Cleansing Soap and Water Rinsed/ Soap and Water Irrigated with Saline -Foul Odor after Cleansing No No -Anesthetic Used 4% Lidocaine 4% Lidocaine 5% Lidocaine Solution, Solution Gel Cetacaine Left Calf (cm) 44 Left Ankle (cm) 21.5 WC - Nurse 2 - General Ulcer CM Notes Start: 04/08/22 15:01 Freq: Status: Active Protocol: Activity Type Activity Date Activity User E-sign Co-sign Detail Recorded Client Recorded Date Recorded By Document 04/08/22 15:26 ALFREDO [id number] 04/08/22 15:29 JF Document 04/15/22 15:30 ALFREDO [id number] 04/15/22 15:32 JF Edit Result 04/15/22 15:30 JF (1) [id number] 04/20/22 09:08 PL Document 04/22/22 11:24 ALFREDO [id number] 04/22/22 11:32 ALFREDO (1) 3. L lateral LE - Debridement - Subq, 1st 20sq cm Yes => No 04/08/22 04/15/22 04/22/22 15: 15:30 11:24 Wound Center Nurse 2 5-left superior leg ulcer -Time : 15: 11:25 -Correct Patient Yes Yes Yes -Correct Side, Site, Position Yes Yes Yes -Correct Procedure Yes Yes Yes -Procedure Performed Yes Yes Yes -Type of Procedure Debridement Debridement Debridement -Clinical Debridement Subcutaneous Subcutaneous Subcutaneous -Tissue Removed Subcutaneous Subcutaneous Subcutaneous -Post Debridement (cm) - Length 2.1 7 3.3 -Post Debridement (cm) - Width 0.6 1.2 0.6 -Post Debridement (cm) - Depth 0.1 0.2 0.4 -Total Square (Post) (cm) 1.26 8.4 1.98 -Area of Debridement (cm) - Length 2.1 7.0 3.3 -Area of Debridement (cm) - Width 0.6 1.2 0.6 -Total Square (Area) (cm) 1.26 8.40 1.98 -Tunneling No No No -Undermining/Tunneling No No No -Circular Undermining No No No -Wound/Ulcer Outcome Not Healed Not Healed Not Healed -Ulcer Cleansing Rinsed/ Rinsed/ Rinsed/ Irrigated with Irrigated with Irrigated with Saline Saline Saline -Foul Odor after Cleansing No No Yes, Due to Product Use -Bioengineered Tissue Yes No No -Type of Bioengineered Tissue Epifix -Expiration Date 01/06/27 -Product Lot Number [id number] -Percent Used 100 -Lot number of Saline Used [id number] -Bleeding Controlled with Pressure Pressure Pressure -Treatment Response Procedure Procedure Procedure Tolerated Well Tolerated Well Tolerated Well -Offloading No No No -Debridement - Subq, 1st 20sq cm No Yes No -Apply Skin Sub - 1st 25 sq cm - Legs 1 -Epifix (per sq cm) 4 3. L lateral LE -Time 15: 15:31 11:25 -Correct Patient Yes Yes Yes -Correct Side, Site, Position Yes Yes Yes -Correct Procedure Yes Yes Yes -Procedure Performed Yes Yes Yes -Type of Procedure Debridement Debridement Debridement -Clinical Debridement Subcutaneous Subcutaneous Subcutaneous -Tissue Removed Subcutaneous Subcutaneous Subcutaneous -Post Debridement (cm) - Length 3.0 2.8 7 -Post Debridement (cm) - Width 1.2 2.1 1.1 -Post Debridement (cm) - Depth 0.1 0.2 0.2 -Total Square (Post) (cm) 3.60 5.88 7.7 -Area of Debridement (cm) - Length 3.0 2.8 7 -Area of Debridement (cm) - Width 1.2 2.1 1.1 -Total Square (Area) (cm) 3.60 5.88 7.7 -Tunneling No No No -Undermining/Tunneling No No No -Circular Undermining No No No -Wound/Ulcer Outcome Not Healed Not Healed Not Healed -Ulcer Cleansing Rinsed/ Rinsed/ Rinsed/ Irrigated with Irrigated with Irrigated with Saline Saline Saline -Foul Odor after Cleansing No No No -Bioengineered Tissue No No No -Bleeding Controlled with Pressure Pressure -Treatment Response Procedure Procedure Procedure Tolerated Well Tolerated Well Tolerated Well -Offloading No No No -Debridement - Subq, 1st 20sq cm Yes No Yes Pain Scale: 0-10 Numeric Is Patient Pain Free? Yes Yes Yes - Nurse 3 - General Ulcer D/C NN Start: 04/08/22 15:01 Freq: Status: Active Protocol: Activity Type Activity Date Activity User E-sign Co-sign Detail Recorded Client Recorded Date Recorded By Document 04/08/22 15:31 [facility] [id number] 04/08/22 15:32 [facility] Document 04/15/22 15:52 ND [id number] 04/15/22 15:53 ND Document 04/22/22 11:43 [facility] [id number] 04/22/22 11:45 [facility] 04/08/22 04/15/22 04/22/22 15:31 15:52 11:43 Wound Care Nurse 3 5-left superior leg ulcer -Ulcer Cleansing Rinsed/ Rinsed/ Irrigated with Irrigated with Saline Saline -Foul Odor after Cleansing No No -Negative Pressure Wound Therapy N/A -Primary Dressing Applied Mepilex Border Promogran Promogran Effie Matter Effie Matter -Other Dressing EPIFIX -Primary Dressing Covered/Secured with Dry Gauze & Dry Gauze & Roll Gauze, Roll Gauze, Secured with Secured with Tape Tape,Other -Other Covering abd -Mepilex Border 1 -Promogran Effie Matter 1 1 3. L lateral LE -Ulcer Cleansing Rinsed/ Rinsed/ Irrigated with Irrigated with Saline Saline -Foul Odor after Cleansing No No -Negative Pressure Wound Therapy N/A -Primary Dressing Applied Mepilex Border Promogran Promogran Effie Matter Effie Matter -Other Dressing EPIFIX -Primary Dressing Covered/Secured with Dry Gauze & Dry Gauze & Roll Gauze, Roll Gauze, Secured with Secured with Tape Tape,Other -Other Covering abd -Mepilex Border 0 -Promogran Effie Matter 0 0 Left -Compression Wrap Alejandro Wrap Alejandro Wrap -Tubular Bandage Single Layer Single Layer Single Layer -Size of Tubigrip Used Size F Size F Size F -Size F ($) 1 1 1 Treatment Response Procedure Procedure Tolerated Well Tolerated Well Pain Scale: 0-10 Numeric Is Patient Pain Free? 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: CODE(S): L97.922 - Non-pressure chronic ulcer of unspecified part of left lower leg with fat layer exposed (2) Type 2 diabetes mellitus with diabetic polyneuropathy: CODE(S): E11.42 - Type 2 diabetes mellitus with diabetic polyneuropathy QUALIFIERS: Diabetes mellitus ad terminal makeup operator insulin use: with ad terminal makeup operator use Qualified Code(s): E11.42 - Type 2 diabetes mellitus with diabetic polyneuropathy; Z79.4 - termite technician (current) use of insulin (3) PAD (peripheral artery disease): CODE(S): I73.9 - Peripheral vascular disease, unspecified (4) Delayed wound healing: CODE(S): T14.8 - Other injury of unspecified body region (5) Localized edema: CODE(S): R60.0 - Localized edema (6) Malnutrition: CODE(S): E46 - Unspecified protein-calorie malnutrition QUALIFIERS: Malnutrition type: protein-calorie malnutrition Protein-calorie malnutrition severity: moderate Qualified Code(s): E44.0 - Moderate protein-calorie malnutrition PLAN: Plan I reviewed and discussed her case today. Debridement was performed today as noted in the clinical panel to all of the ulcer site. The following work up and care recommendations were made: Dressing: Epi fix, advancing healing product application course has already been completed. To change daily now with [employer]. Offload: Continue offloading pillow to take pressure off of the side of her leg; this is going well so far. she has a donut pillow and I recommend the use of a proximal blanket or pillow to offload her central leg ulcer cluster site. Ok to place partial weight to plantar left foot at this time. To avoid excessive ambulation which she is not doing anyways at this time. To avoid leg rotation onto the knob of her wheelchair. This is padded with cloth and this does not appear to be adequate. I recommend egg krate padded device for further protection. PT/OT recommended and ordered to help with this task. Discussed plan with snf staff member today as well again. Vascular: She is under the care of Dr. Aguilar, vascular surgeon. On 08-20-21 she had catheterization in place to the anterior tibial artery and a balloon angioplasty performed in the popliteal into the proximal anterior tib. To follow-up as scheduled. Additional intervention is not planned at this time and she reports she followed with Dr. Aguilar this morning who wrote recommended monitoring her staged improvement. To continue on Plavix. Edema: I recommend upgrading to Tubigrip, elevation, and medication review at her shelter facility to reduce edema which is also contributing pressure to her ulcer sites on her left leg. To continue recently started furosemide. To reduce salt in diet. Her remarkable increase in edema to all 4 limbs as noted. Infection: This has resolved and her surgical site has also healed. She was previously under the care of infectious disease specialist. Wound cx and surg cx with MRSA, raoultella, citrobacter. Clearance cx with some MRSA and anaerobes. Superficial raoultella was R to cefepime, but surg cx was S and clearance cx was neg for GNR. She was on vanc/meropenem with stop date 09/19/21. There is resolution of local and systemic signs of illness at this time. Pain: This is not present because of her neuropathy. Surgically, she had a transmetatarsal amputation and debridement of the ulcers on 08-08-21 at [facility]. Host factors: She is diabetic and her hemoglobin A1c was recently improved to 6.9% (9-30-21). To continue to work with primary care physician on medical management. I recommend nutritional supplementation optimize healing. She is on Vlad and Glucerna. It is also noted she is on a new course of prednisone for her chest and upper extremity dermatitis with subsequent wound formation. To complete the course as advised by her primary care physician. She understands prednisone may slow wound healing if using a chronic manner and this will be monitored. She resides in a shelter facility at this time. Paperwork was reviewed (summary of care). We discussed her treatment plan including a palliative care option. It is very exhausting for her to travel to the wound healing center every week therefore she will start coming on a 2 to 4-week basis to conserve her efforts and to aid in deteriorating or infection status. I answered all the patient's questions. To return to the wound healing center in 2-3 week or call sooner if the patient has any questions or concerns. Note: [employer] speech recognition can cleaner software was used to create portions of this document. Sound-alike and misspelled words, as well as other can cleaner errors may be contained in the documentation. 13 minutes was spent on this encounter. This included face to face and non face to face care including preparing for the visit, reviewing the history, performing the exam, counseling and providing education to the patient, family, or caregiver, ordering medications/test/ procedures if indicated as documented, communicating with other healthcare providers, documenting information in the medical record, interpreting / sharing this information when indicated as documented, and care coordination.
== END 2022-05-07 23:59 | disposition home or self-care (01) ==
LOC: WC 11:00
PROVIDERS: PCP Family Medicine Geriatric Medicine; Visit Provider Podiatrist
DX: E11.622 Type 2 diabetes mellitus with other skin ulcer (principal); E11.51 Type 2 diabetes mellitus with diabetic peripheral angiopathy without gangrene; L97.922 Non-pressure chronic ulcer of unspecified part of left lower leg with fat layer exposed; E44.0 Moderate protein-calorie malnutrition; E11.42 Type 2 diabetes mellitus with diabetic polyneuropathy; Z79.4 Long term (current) use of insulin; R60.0 Localized edema
CPT/HCPCS: 11042; 15271; Q4186

== ENCOUNTER 2022-04-23 09:22 | Inpatient (IN) | payer MEDICARE, MEDICAID, SELFPAY ==
[2022-04-23] VITALS (16 sets, daily range): BP systolic 110–192; BP diastolic 44–71; PULSE 51–64; RESP 12–18; TEMP 36.3–36.9; O2SAT 92–100; BMI 48.4; BMI 45.3
--- NOTE | 2022-04-23 09:50 | EDS_ITS ---
HPI History of Present Illness Chief Complaint: Abn Labs Informant: patient Onset/Context/Timing Onset: Days Context: Gradual Onset Timing: Continuous Quality: Weakness Location: Generalized Worsened by: Nothing Relieved by: Nothing Narrative Narrative: Patient presents with generalized weakness that became worse today. Patient had outpatient labs drawn today which showed anemia with a hemoglobin of 6.4 which has decreased from 2 days ago when it was 7.0. BUN was also noted to be elevated at 127 today. Patient does have a history of chronic kidney disease but her BUN is increased from previous results. Patient states she just feels weak all over. Patient states nothing makes it better nothing makes it worse. Patient denies any melena or hematochezia. Patient denies any nausea or vomiting. Patient denies any chest pain or shortness of breath. [facility] Medical History (HFpEF) heart failure with preserved ejection fraction Anemia Atherosclerosis of coronary artery of [place] heart without angina pectoris Cellulitis of left lower limb Chronic headaches Chronic kidney disease (CKD) Chronic ulcer of left foot with necrosis of muscle Current use of insulin Depression Diabetic foot infection Diabetic nephropathy Difficulty chewing Difficulty swallowing DM (diabetes mellitus), type 2, uncontrolled DVT (deep venous thrombosis) Dyspnea Essential hypertension History of non-ST elevation myocardial infarction (NSTEMI) (01/13/20) Irregular heartbeat Left foot infection Malnutrition Myocardial infarction Paralysis Peripheral vascular disease Post-menopausal Renal disease Restless legs Sleep apnea Status post amputation of toe of left foot Stroke Thyroiditis Type 2 diabetes mellitus with diabetic foot infection Ulcer Ulcer of left foot due to type 2 diabetes mellitus Home Medications amlodipine 10 mg tablet 10 mg PO DAILY BP 08/07/21 [History Last Taken Unknown] aspirin 81 mg capsule 81 mg PO DAILY Heart 08/07/21 [History Last Taken Unknown] metoprolol tartrate 25 mg tablet 50 mg PO BID BP 08/07/21 [History Last Taken Unknown] pantoprazole 20 mg tablet,delayed release 40 mg PO DAILY GERD 08/07/21 [History Last Taken Unknown] atorvastatin 80 mg tablet 80 mg PO QHS Cholesterol 08/12/21 [History Last Taken Unknown] clopidogrel 75 mg tablet 75 mg PO DAILY Antiplatelet 08/12/21 [History Last Taken Unknown] polyethylene glycol 3350 17 gram oral powder packet 17 g PO DAILY Constipation 08/12/21 [History Last Taken Unknown] acetaminophen 500 mg tablet 1,000 mg PO Q6H PRN PRN Pain Score 1-10 #0 tabs 08/29/21 [Rx Last Taken Unknown] bisacodyl 5 mg tablet,delayed release 10 mg PO DAILY PRN Constipation #0 tabs 08/29/21 [Rx Last Taken Unknown] oxycodone 5 mg tablet 5 mg PO Q4H PRN PRN Pain Score 6-10 3 days #18 tabs 08/29/21 [Rx Last Taken Unknown] ferrous sulfate 325 mg (65 mg iron) tablet (Iron (ferrous sulfate)) 325 mg PO TID supplement 02/21/22 [History Last Taken Unknown] insulin glargine 100 unit/mL (3 mL) subcutaneous pen (Lantus Solostar U-100 Insulin) 35 unit subcut QPM dm 02/21/22 [History Last Taken Unknown] nystatin 100,000 unit/gram topical powder (Nyamyc) 1 applic topical BID redness 02/21/22 [History Last Taken Unknown] furosemide 40 mg tablet 40 mg PO DAILY 04/22/22 [History Last Taken Unknown] levothyroxine 125 mcg tablet 125 mcg PO DAILY 04/22/22 [History Last Taken Unknown] calcitriol 0.25 mcg capsule 0.25 mcg PO DAILY 04/23/22 [History Last Taken Unknown] calcium carbonate 600 mg calcium (1,500 mg) tablet 600 mg PO BID 04/23/22 [History Last Taken Unknown] citalopram 20 mg tablet 20 mg PO DAILY 04/23/22 [History Last Taken Unknown] doxycycline hyclate 50 mg tablet 50 mg PO DAILY 04/23/22 [History Last Taken Unknown] insulin lispro 100 unit/mL subcutaneous pen 0 unit subcut TID 04/23/22 [History Last Taken Unknown] magnesium hydroxide 400 mg/5 mL oral suspension (Milk of Magnesia) 400 mg PO DAILY PRN Constipation 04/23/22 [History Last Taken Unknown] melatonin 1 mg tablet 1 mg PO QHS 04/23/22 [History Last Taken Unknown] prednisone 10 mg tablet 10 mg PO DAILY 04/23/22 [History Last Taken Unknown] Allergy/AdvReac Type Severity Reaction Status Date / Time baclofen AdvReac Other Verified 04/22/22 14:12 Family History Mother CVA (cerebral vascular accident) Other Diabetes Heart disease Surgical History H/O coronary artery bypass surgery History of heart artery stent S/P tubal ligation Status post arterial stent Status post coronary artery bypass graft Status post coronary artery stent placement Status post hysterectomy Status post transmetatarsal amputation of left foot Social History household members: children Smoking Status: Never smoker ROS ROS ED Constitutional Constitutional ED: Denies chills or fever(s) Eyes Eyes: Denies blurry vision or change in vision ENT ENT ED: Denies rhinorrhea or sore throat Cardiovascular Cardiovascular: Denies chest pain or palpitations Respiratory/Chest Respiratory/Chest: Denies cough or dyspnea Gastrointestinal Gastrointestinal: Denies melena, nausea or vomiting Genitourinary Genitourinary ED: Denies dysuria or hematuria Musculoskeletal Musculoskeletal: Denies back pain or neck pain Integumentary Denies abscess or rash Neurologic Neurologic: Reports weakness; Denies headache(s) Allergic/Immunologic Allergic/Immunologic ED: Denies mouth swelling or urticaria EXAM Physical Exam Const Vital Signs: 04/23/22 09:24 04/23/22 09:27 04/23/22 09:31 Temperature 97.6 F L 97.6 F L Temperature Source Temporal Temporal Pulse Rate 60 60 Respiratory Rate 16 16 Respiratory Effort Normal Non-Labored Respiratory Pattern Normal Blood Pressure 147/57 H 147/57 H Blood Pressure Mean 87 87 Pulse Ox 99 98 Oxygen Delivery Method Room Air Room Air 04/23/22 12:26 Temperature Temperature Source Pulse Rate 62 Respiratory Rate 14 Respiratory Effort Respiratory Pattern Blood Pressure 137/62 H Blood Pressure Mean 87 Pulse Ox 100 Oxygen Delivery Method Room Air Positive well nourished and well developed General Appearance ED: well developed HEENT Reports moist mucous membranes Neck supple and no JVD Resp normal respiratory effort and clear to auscultation bilaterally Cardio regular rate, regular rhythm and no murmurs GI normal to inspection, nondistended, normoactive bowel sounds and non-tender Palpation: soft Extremity normal to inspection General Extremety ED: Negative for edema or tenderness General Extremity: Negative for edema Neuro oriented x3, CN's II-XII intact bilaterally and no sensory deficits noted Sensorium / Orientation: alert Motor Exam: strength 5/5 throughout Psych mental status grossly normal Skin no rashes or lesions noted MDM MDM MDM Narrative Medical decision making narrative: CBC earlier today which showed a hemoglobin of 6.4. Patient also had a metabolic profile drawn as an outpatient today which showed a BUN of 127. Portable chest x-ray was obtained. There is 1 view. On my interpretation, there is some mild vascular congestion. There is borderline cardiomegaly. There is no acute process. Radiologist also interpreted the x-ray and agrees. PT with INR and PTT were within normal limits. High-sensitivity troponin was normal. Rectal exam showed good sphincter tone. There is dark stool. It was Hemoccult positive. Patient was typed and crossed for a unit of blood. Urinalysis shows leukocyte esterases of 500 with 25-50 white blood cells. Patient was given a dose of Rocephin. Patient was also given a dose of pantoprazole. Case was discussed with the hospitalist. She will admit the patient to her service. Dr. Vazquez from gastroenterology is not on-call today. Lab Data Attestation: I reviewed the patient's lab results. Labs: Laboratory Results - last 24 hr 04/23/22 04/23/22 04/23/22 09:35 09:35 10:05 PT 13.2 INR 1.0 APTT 29.7 Troponin I High Sens 19 Urine Color Urine Clarity Urine pH Ur Specific [place] Urine Protein Urine Glucose (UA) Urine Ketones Urine Occult Blood Urine Nitrite Urine Bilirubin Urine Urobilinogen Ur Leukocyte Esterase Urine RBC Urine WBC Ur Squamous Epith Cells Urine Bacteria Urine Mucus Urine Yeast Blood Type AB POSITIVE Antibody Screen NEGATIVE Crossmatch See Detail 04/23/22 11:03 PT INR APTT Troponin I High Sens Urine Color Yellow Urine Clarity Cloudy Urine pH 5.0 Ur Specific [place] 1.015 Urine Protein 100 H Urine Glucose (UA) Normal Urine Ketones Negative Urine Occult Blood 25 H Urine Nitrite Negative Urine Bilirubin Negative Urine Urobilinogen Normal Ur Leukocyte Esterase 500 H Urine RBC 0-5 SEEN Urine WBC 25-50 SEEN Ur Squamous Epith Cells 0-5 SEEN Urine Bacteria 0 SEEN Urine Mucus 0 SEEN Urine Yeast 3+ Blood Type Antibody Screen Crossmatch Radiography Diagnostic Testing: Clinical Impression(s) from Imaging Studies Chest X-Ray 04/23/22 09:52 IMPRESSION: Borderline cardiomegaly. Mild degree of vascular congestion. Electronically Signed: Donny Mariee MD at 11:08 EDT , Discharge Plan Triage Chief Complaint: Abn Labs ED Provider: Don Robles Dx/Rx/DC Orders Clinical Impression: Upper gastrointestinal bleeding, Urinary tract infection Prescriptions: No Action levothyroxine 125 mcg tablet 125 mcg PO DAILY Label Comments: take 1 tablet by mouth once daily furosemide 40 mg tablet 40 mg PO DAILY amlodipine 10 mg Tablet 10 mg PO DAILY metoprolol tartrate 25 mg Tablet 50 mg PO BID aspirin 81 mg Capsule 81 mg PO DAILY pantoprazole 20 MG tablet,delayed release (DR/EC) 40 mg PO DAILY atorvastatin 80 MG tablet 80 mg PO QHS polyethylene glycol 3350 17 GM powder in packet 17 g PO DAILY clopidogrel 75 MG tablet 75 mg PO DAILY acetaminophen 500 mg Tablet 1,000 mg PO Q6H PRN PRN (Reason: Pain Score 1-10) Qty: 0 0RF bisacodyl 5 mg Tablet,Delayed Release (Dr/Ec) 10 mg PO DAILY PRN (Reason: Constipation) Qty: 0 0RF oxycodone 5 mg Tablet 5 mg PO Q4H PRN PRN (Reason: Pain Score 6-10) 3 Days Qty: 18 0RF nystatin [Nyamyc] 100,000 unit/gram powder 1 applic topical BID Protocol: *Topical Application Instructions APPLICATION INSTRUCTIONS: groin/abdominal folds insulin glargine [Lantus Solostar U-100 Insulin] 100 unit/mL (3 mL) Insulin Pen 35 unit SUBCUT QPM ferrous sulfate [Iron (ferrous sulfate)] 325 mg (65 mg iron) Tablet 325 mg PO TID prednisone 10 mg Tablet 10 mg PO DAILY calcium carbonate 600 mg calcium (1,500 mg) Tablet 600 mg PO BID citalopram 20 mg Tablet 20 mg PO DAILY magnesium hydroxide [Milk of Magnesia] 400 mg/5 mL Suspension 400 mg PO DAILY PRN (Reason: Constipation) calcitriol 0.25 mcg Capsule 0.25 mcg PO DAILY insulin lispro 100 unit/mL Insulin Pen 0 unit SUBCUT TID Label Comments: sliding scale BS 0-200- 0 units 201-250- 2 units 251-300- 4 units 301-350- 6 units greater than 350- 8 units melatonin 1 mg Tablet 1 mg PO QHS doxycycline hyclate 50 mg Tablet 50 mg PO DAILY Primary Care Provider: Elia Ceja Chi Referrals: Elia Ceja Chi, MD [Primary Care Provider] - Disposition Disposition: Acute Care Hospital [facility]
--- NOTE | 2022-04-23 09:52 | RAD_ITS ---
STUDY: X-RAY CHEST REASON FOR EXAM: Female, 72 years old. Weakness TECHNIQUE: Single AP portable view of the chest. COMPARISON: Comparison is made with prior study dated 02/22/2022. FINDINGS: EKG electrodes are seen. Surgical clips are seen in the thyroid bed. Mild degree of vascular congestion. There is no demonstrated pleural abnormality. Sternal cerclage wires and vascular clips are present from a prior sternotomy and coronary artery bypass graft procedure (CABG). Borderline cardiomegaly. Normal mediastinum and emma. Normal visualized pulmonary arteries. There is atherosclerotic calcification of the aortic arch with tortuosity. There are diffuse degenerative changes of the visualized thoracic spine. Normal visualized ribs, clavicles, and shoulders. There is no demonstrated abnormality of the visualized soft tissue structures of the upper abdomen. RAD/Chest 1 View (Portable) IMPRESSION: Borderline cardiomegaly. Mild degree of vascular congestion. Electronically Signed: Donny Mariee MD at 11:08 EDT ,
[2022-04-23 10:25] LABS: Prothrombin Time (Protime)PT. 13.2 SECONDS (11.7-14.9)
[2022-04-23 10:26] LABS: Partial Thromboplast Time 29.7 Seconds (24.1-36.2)
[2022-04-23 10:34] LABS: Troponin-I HS 19 pg/mL (3.0-54.0)
[2022-04-23 11:08] LABS: Bacteria 0 SEEN /hpf (None Seen); Mucous, Urine 0 SEEN /hpf (<or=2+)
[2022-04-23 11:11] LABS: Color, Urine Yellow (Yellow); Glucose, Dipstick Normal (Normal); Ketone-Dipstick Negative (Negative); Leukocyte Esterase-Dipstick 500 /ul (Negative); Nitrite-Dipstick Negative (Negative); Occult Blood-Urine 25 /ul (Negative); Protein-Dipstick 100 mg/dl (Negative); Specific Gravity, Urine 1.015 (1.002-1.030); Urine Bilirubin Dipstick Negative (Negative); Urine Clarity Cloudy (Clear); Urine Urobilinogen Normal (Normal)
[2022-04-23 11:22] LABS: Red Blood Cells-Urine 0-5 SEEN /hpf (0-5); Squamous Epithelial Cells - UA 0-5 SEEN /hpf (5-10); White Blood Cells 25-50 SEEN /hpf (0-5); Yeast-Urine 3+ /hpf (None Seen)
[2022-04-23] MEDS: Ceftriaxone 1 GM/50 ML BAG IV (12:23)
--- NOTE | 2022-04-23 12:24 | HP.PCM.HOS_ITS ---
HPI - General General Date of Admission: 04/23/22 Date of Service: 04/23/22 Chief Complaint: altered mental status HPI Narrative EBONIE WOLF, is a 72 F with a PMH as outlined who presents via the ED with a complaint of abnormal labs and generalized weakness. Patient tells me that she came in because her legs were swollen. Per the ED doctor, she had outpatient labs drawn today which showed hemoglobin of 6.4. Her hemoglobin 2 days ago was 7. Patient has a history of GI bleed due to angiodysplastic lesions in the last in the hospital in February 2022 when she had an EGD and these were treated with heater probe's. Patient denies any dark stools or any hematemesis. She does not remember she had these outpatient labs. She denies any fever, chills, nausea vomiting abdominal pain or diarrhea. Review of systems otherwise negative. Vitals in the ED were blood pressure of 137/62, pulse rate of 62, respiratory rate of 14 and she was saturating at 100% on room air. Labs done this morning showed hemoglobin of 6.4 with WBC of 15.8 and platelets of 307. Chemistry shows sodium of 125 potassium of 4.6 and BUN of 127 as well as creatinine of 2.59. Urinalysis showed 3+ yeast and 500 leukocyte esterase but no bacteria. INR is 1. Stool for occult blood was positive. She has been admitted to be managed for acute on chronic anemia due to GI bleed. [facility] Medical History (HFpEF) heart failure with preserved ejection fraction Anemia Atherosclerosis of coronary artery of [place] heart without angina pectoris Cellulitis of left lower limb Chronic headaches Chronic kidney disease (CKD) Chronic ulcer of left foot with necrosis of muscle Current use of insulin Depression Diabetic foot infection Diabetic nephropathy Difficulty chewing Difficulty swallowing DM (diabetes mellitus), type 2, uncontrolled DVT (deep venous thrombosis) Dyspnea Essential hypertension History of non-ST elevation myocardial infarction (NSTEMI) (01/13/20) Irregular heartbeat Left foot infection Malnutrition Myocardial infarction Paralysis Peripheral vascular disease Post-menopausal Renal disease Restless legs Sleep apnea Status post amputation of toe of left foot Stroke Thyroiditis Type 2 diabetes mellitus with diabetic foot infection Ulcer Ulcer of left foot due to type 2 diabetes mellitus Home Medications amlodipine 10 mg tablet 10 mg PO DAILY BP 08/07/21 [History Last Taken Unknown] aspirin 81 mg capsule 81 mg PO DAILY Heart 08/07/21 [History Last Taken Unknown] metoprolol tartrate 25 mg tablet 50 mg PO BID BP 08/07/21 [History Last Taken Unknown] pantoprazole 20 mg tablet,delayed release 40 mg PO DAILY GERD 08/07/21 [History Last Taken Unknown] atorvastatin 80 mg tablet 80 mg PO QHS Cholesterol 08/12/21 [History Last Taken Unknown] clopidogrel 75 mg tablet 75 mg PO DAILY Antiplatelet 08/12/21 [History Last Taken Unknown] polyethylene glycol 3350 17 gram oral powder packet 17 g PO DAILY Constipation 08/12/21 [History Last Taken Unknown] acetaminophen 500 mg tablet 1,000 mg PO Q6H PRN PRN Pain Score 1-10 #0 tabs 08/29/21 [Rx Last Taken Unknown] bisacodyl 5 mg tablet,delayed release 10 mg PO DAILY PRN Constipation #0 tabs 08/29/21 [Rx Last Taken Unknown] oxycodone 5 mg tablet 5 mg PO Q4H PRN PRN Pain Score 6-10 3 days #18 tabs 08/29/21 [Rx Last Taken Unknown] ferrous sulfate 325 mg (65 mg iron) tablet (Iron (ferrous sulfate)) 325 mg PO TID supplement 02/21/22 [History Last Taken Unknown] insulin glargine 100 unit/mL (3 mL) subcutaneous pen (Lantus Solostar U-100 Insulin) 35 unit subcut QPM dm 02/21/22 [History Last Taken Unknown] nystatin 100,000 unit/gram topical powder (Nyamyc) 1 applic topical BID redness 02/21/22 [History Last Taken Unknown] furosemide 40 mg tablet 40 mg PO DAILY 04/22/22 [History Last Taken Unknown] levothyroxine 125 mcg tablet 125 mcg PO DAILY 04/22/22 [History Last Taken Unknown] calcitriol 0.25 mcg capsule 0.25 mcg PO DAILY 04/23/22 [History Last Taken Unknown] calcium carbonate 600 mg calcium (1,500 mg) tablet 600 mg PO BID 04/23/22 [History Last Taken Unknown] citalopram 20 mg tablet 20 mg PO DAILY 04/23/22 [History Last Taken Unknown] doxycycline hyclate 50 mg tablet 50 mg PO DAILY 04/23/22 [History Last Taken Unknown] insulin lispro 100 unit/mL subcutaneous pen 0 unit subcut TID 04/23/22 [History Last Taken Unknown] magnesium hydroxide 400 mg/5 mL oral suspension (Milk of Magnesia) 400 mg PO DAILY PRN Constipation 04/23/22 [History Last Taken Unknown] melatonin 1 mg tablet 1 mg PO QHS 04/23/22 [History Last Taken Unknown] prednisone 10 mg tablet 10 mg PO DAILY 04/23/22 [History Last Taken Unknown] Allergy/AdvReac Type Severity Reaction Status Date / Time baclofen AdvReac Other Verified 04/22/22 14:12 Family History Mother CVA (cerebral vascular accident) Other Diabetes Heart disease Surgical History H/O coronary artery bypass surgery History of heart artery stent S/P tubal ligation Status post arterial stent Status post coronary artery bypass graft Status post coronary artery stent placement Status post hysterectomy Status post transmetatarsal amputation of left foot Social History (Updated 04/23/22 @ 14:06 by Yuliet Brown) household members: children housing: shelter Smoking Status: Never smoker ROS Constitutional Constitutional: Reports fatigue, malaise and weakness; Denies anorexia, change in weight, chills or fever(s) Eyes Eyes: Denies change in vision ENT HEENT: Denies dysphagia, headache(s) or sore throat Cardiovascular Cardiovascular: Denies chest pain, dyspnea on exertion, lightheadedness, orthopnea, palpitations, paroxysmal nocturnal dyspnea or rapid heart rate Respiratory/Chest Respiratory/Chest: Denies cough, dyspnea, excessive phlegm production, hemoptysis, productive cough or shortness of breath at rest Gastrointestinal Gastrointestinal: Denies abdominal pain, coffee ground emesis, constipation, hematemesis, hematochezia, melena, nausea or vomiting Genitourinary Genitourinary: Denies burning urination or dysuria Musculoskeletal Musculoskeletal: Denies arthralgias, back pain or joint pain Neurologic Neurologic: Denies confusion, dizziness, focal weakness, headache(s), numbness, seizures or syncope Psychiatric Psychiatric: Denies anxiety or depression Endocrine Endocrinology: Denies change in body appearance Hematologic/Lymphatic Hematologic/Lymphatic: Reports anemia Allergic/Immunologic Allergic/Immunologic: Denies hives or eczemia Vital Signs Vital Signs Vital Signs: 04/23/22 09:24 04/23/22 09:27 04/23/22 09:31 Temperature 97.6 F L 97.6 F L Temperature Source Temporal Temporal Pulse Rate 60 60 Respiratory Rate 16 16 Respiratory Effort Normal Non-Labored Respiratory Pattern Normal Blood Pressure 147/57 H 147/57 H Blood Pressure Mean 87 87 Pulse Ox 99 98 Oxygen Delivery Method Room Air Room Air Weight Weight: 264 lb 15.93 oz Body Mass Index (BMI) 48.4 Physical Exam Const alert and oriented x3 Orientation / Consciousness: lethargic HEENT normocephalic, head/scalp atraumatic, hearing grossly normal bilaterally and moist oral mucous membranes Mouth: oral and palatal mucosa normal Eyes PERRL, EOMs intact bilaterally and conjunctivae normal Neck no lymphadenopathy and supple Resp normal respiratory effort, no retractions, no use of accessory muscles and clear to auscultation bilaterally Cardio regular rate, regular rhythm, S1 normal heart sound, S2 normal heart sound and no murmurs GI normal to inspection, nondistended, normoactive bowel sounds, soft to palpation, non-tender and non-distended GI Narrative: obese abdomen Extremity Extremity Narrative: severe edema of LUE, which she says is chronic. LLE wrapped in bandage Neuro oriented x3, CN's II-XII intact bilaterally and moves all extremities Sensorium / Orientation: awake and alert Results Lab / Micro Data Labs: Laboratory Results - last 24 hr 04/23/22 09:35: PT 13.2, INR 1.0, APTT 29.7 04/23/22 09:35: Troponin I High Sens 19 04/23/22 10:05: Blood Type AB POSITIVE, Antibody Screen NEGATIVE, Crossmatch See Detail 04/23/22 11:03: Urine Color Yellow, Urine Clarity Cloudy, Urine pH 5.0, Ur Specific [place] 1.015, Urine Protein 100 H, Urine Glucose (UA) Normal, Urine Ketones Negative, Urine Occult Blood 25 H, Urine Nitrite Negative, Urine Bilirubin Negative, Urine Urobilinogen Normal, Ur Leukocyte Esterase 500 H, Urine RBC 0-5 SEEN, Urine WBC 25-50 SEEN, Ur Squamous Epith Cells 0-5 SEEN, Urine Bacteria 0 SEEN, Urine Mucus 0 SEEN, Urine Yeast 3+ Micro: Microbiology 04/23/22 11:25 Stool Stool Occult Blood (YELENA) - Final Occult Blood Positive 04/23/22 10:10 Nasal Secretion SARS-CoV-2 & FLU Antigen (Rapid) - Final Radiology Impression Chest X-Ray 04/23/22 09:52 IMPRESSION: Borderline cardiomegaly. Mild degree of vascular congestion. Electronically Signed: Donny Mariee MD at 11:08 EDT , Assessment & Plan Assessment/Plan (1) Upper gastrointestinal bleeding: (2) Anemia: PLAN: Plan #Acute on chronic anemia due to GI bleed * Hb is 6.4. INR is 1. * had EGD in February 2022 which showed AV malformations, and this was treated with cauterization * admit to PCU * hydate with IVF * IV pantoprazole drip * consult gasroenterology * transfuse with one unit of PRBC * BUN markedly elevated at 124 with BUN/Cr ration >20, indicating an UGI bleed * On clear liquids now pending GI evaluation # #CKD with uremia * BUN is markedly elevated at 124. This is likely due to the probable UGI bleed. * CR is 2.6 * will consult nephrology if kidney function worsens * On calcitriol and calcium carbonate * #Hypertension; on amlodipine, metoprolol #Type 2 diabetes mellitus: Hold Lantus. Insulin 35 units nightly. Insulin sliding scale. Accu-Cheks ACH S. #Hypothyroidism due to thyroidectomy for thyroid cancer: On Synthroid #Hyperlipidemia: On statin #History of heart failure preserved ejection fraction: Not in exacerbation. On Lasix. #History of CAD s/p CABG: Aspirin and Plavix on hold due to GI bleed. On high i ntensity statin. #Depression: On citalopram DVT prophylaxis: SCDs GI prophylaxis: On pantoprazole drip CODE STATUS: Full code * Patient counseled extensively about different types of CODE STATUS including full code, DNR CCA and DNR CCA. Patient elects to be full code. * Total udil-em-scya time 17 minutes. Charges/Coding Visit Charges Inpatient E&M: 36652 Init Hosp L3 Procedures Hospitalists Procedures: 41104 Advncd Care Plan 30 Min
--- NOTE | 2022-04-23 15:32 | WOUNDNOTE ---
wound photo: left lateral lower leg
--- NOTE | 2022-04-23 15:32 | WOUNDNOTE ---
wound photo: left anterior ankle
--- NOTE | 2022-04-23 15:33 | WOUNDNOTE ---
wound photo: left heel
--- NOTE | 2022-04-23 16:43 | CON.PCM_ITS ---
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 Patient undergo an upper endoscopy for evaluation of her esophagus, stomach and small bowel to look and see if she is losing any blood. (2) Anemia: PLAN: Maira should also undergo colonoscopy for evaluation of her lower GI tract due to her persistently low hemoglobins nothing is seen on the upper portion which do a colonoscopy because she has not had one in a while. HPI Consult Data Date of Consult: 04/23/22 Attending Care Provider: GI bleed HPI Narrative HPI Narrative: EBONIE WOLF, is a 72 F who presents with worsening anemia. Patient had outpatient labs drawn today which showed anemia with a hemoglobin of 6.4 which has decreased from 2 days ago when it was 7.0.? BUN was also noted to be elevated at 127 today.? Patient does have a history of chronic kidney disease but her BUN is increased from previous results.? Patient states she just feels weak all over.? Patient states nothing makes it better nothing makes it worse.? Patient denies any melena or hematochezia.? Patient denies any nausea or vomiting.? Patient denies any chest pain or shortness of breath. He was here proximately 6 or 7 weeks ago with similar symptoms. She presented with slurred speech and mild shortness of breath.? She has a past medical history of hypertension, hyperlipidemia, type 2 diabetes, CAD, CKD, CVA with left-sided hemiplegia, left BKA.? I was called to see her due to worsening acute on chronic anemia.? She had been on prednisone for the last month since she had a rash on her left arm and her blood sugars have been very difficult to control.? She has very poorly controlled diabetes at baseline.? Her hemoglobin usually ranges from 10.5-11.5.? It was 10.7 last month.? When she came into the hospital it was 2.5 and over the course of her hospital stay history of to down to 7.1.? She got transfused 2 units of packed red blood cells and it is up to 9.5. ?coronary artery bypass surgery in January 2020 with a [place] to the LAD saphenous vein graft to obtuse marginal branch and saphenous vein graft to the right coronary artery out in [place].? She had sustained and non-ST elevation myocardial infarction at that time with an estimated ejection fraction of 35 to 40%.? She did well postoperatively and her Intra-Op echocardiogram had demonstrated an ejection fraction of 60 to 65% with no wall motion abnormalities noted.? She has developed a chronic left leg ulcer for which she continues to see vascular surgery is on Plavix and is undergoing treatment at the wound center.? She is noted to be anemic and she has an elevated BUN and creatinine.? From the cardiac standpoint she does not appear to have any major symptoms.? [facility] Medical History (HFpEF) heart failure with preserved ejection fraction Anemia Atherosclerosis of coronary artery of [place] heart without angina pectoris Cellulitis of left lower limb Chronic headaches Chronic kidney disease (CKD) Chronic ulcer of left foot with necrosis of muscle Current use of insulin Depression Diabetic foot infection Diabetic nephropathy Difficulty chewing Difficulty swallowing DM (diabetes mellitus), type 2, uncontrolled DVT (deep venous thrombosis) Dyspnea Essential hypertension History of non-ST elevation myocardial infarction (NSTEMI) (01/13/20) Irregular heartbeat Left foot infection Malnutrition Myocardial infarction Paralysis Peripheral vascular disease Post-menopausal Renal disease Restless legs Sleep apnea Status post amputation of toe of left foot Stroke Thyroiditis Type 2 diabetes mellitus with diabetic foot infection Ulcer Ulcer of left foot due to type 2 diabetes mellitus Home Medications amlodipine 10 mg tablet 10 mg PO DAILY BP 08/07/21 [History Last Taken Unknown] aspirin 81 mg capsule 81 mg PO DAILY Heart 08/07/21 [History Last Taken Unknown] metoprolol tartrate 25 mg tablet 50 mg PO BID BP 08/07/21 [History Last Taken Unknown] pantoprazole 20 mg tablet,delayed release 40 mg PO DAILY GERD 08/07/21 [History Last Taken Unknown] atorvastatin 80 mg tablet 80 mg PO QHS Cholesterol 08/12/21 [History Last Taken Unknown] clopidogrel 75 mg tablet 75 mg PO DAILY Antiplatelet 08/12/21 [History Last Taken Unknown] polyethylene glycol 3350 17 gram oral powder packet 17 g PO DAILY Constipation 08/12/21 [History Last Taken Unknown] acetaminophen 500 mg tablet 1,000 mg PO Q6H PRN PRN Pain Score 1-10 #0 tabs 08/29/21 [Rx Last Taken Unknown] bisacodyl 5 mg tablet,delayed release 10 mg PO DAILY PRN Constipation #0 tabs 08/29/21 [Rx Last Taken Unknown] oxycodone 5 mg tablet 5 mg PO Q4H PRN PRN Pain Score 6-10 3 days #18 tabs 08/29/21 [Rx Last Taken Unknown] ferrous sulfate 325 mg (65 mg iron) tablet (Iron (ferrous sulfate)) 325 mg PO TID supplement 02/21/22 [History Last Taken Unknown] insulin glargine 100 unit/mL (3 mL) subcutaneous pen (Lantus Solostar U-100 Insulin) 35 unit subcut QPM dm 02/21/22 [History Last Taken Unknown] nystatin 100,000 unit/gram topical powder (Nyamyc) 1 applic topical BID redness 02/21/22 [History Last Taken Unknown] furosemide 40 mg tablet 40 mg PO DAILY 04/22/22 [History Last Taken Unknown] levothyroxine 125 mcg tablet 125 mcg PO DAILY 04/22/22 [History Last Taken Unknown] calcitriol 0.25 mcg capsule 0.25 mcg PO DAILY 04/23/22 [History Last Taken Unknown] calcium carbonate 600 mg calcium (1,500 mg) tablet 600 mg PO BID 04/23/22 [History Last Taken Unknown] citalopram 20 mg tablet 20 mg PO DAILY 04/23/22 [History Last Taken Unknown] doxycycline hyclate 50 mg tablet 50 mg PO DAILY 04/23/22 [History Last Taken Unknown] insulin lispro 100 unit/mL subcutaneous pen 0 unit subcut TID 04/23/22 [History Last Taken Unknown] magnesium hydroxide 400 mg/5 mL oral suspension (Milk of Magnesia) 400 mg PO DAILY PRN Constipation 04/23/22 [History Last Taken Unknown] melatonin 1 mg tablet 1 mg PO QHS 04/23/22 [History Last Taken Unknown] prednisone 10 mg tablet 10 mg PO DAILY 04/23/22 [History Last Taken Unknown] Allergy/AdvReac Type Severity Reaction Status Date / Time baclofen AdvReac Other Verified 04/22/22 14:12 Family History Mother CVA (cerebral vascular accident) Other Diabetes Heart disease Surgical History H/O coronary artery bypass surgery History of heart artery stent S/P tubal ligation Status post arterial stent Status post coronary artery bypass graft Status post coronary artery stent placement Status post hysterectomy Status post transmetatarsal amputation of left foot Social History (Updated 04/23/22 @ 14:06 by Yuliet Brown) household members: children housing: [facility] Smoking Status: Never smoker ROS ROS Narrative Weakness and fatigue Physical Exam Const alert and oriented x3 Orientation / Consciousness: lethargic HEENT normocephalic, head/scalp atraumatic, hearing grossly normal bilaterally and moist oral mucous membranes Mouth: oral and palatal mucosa normal Eyes PERRL, EOMs intact bilaterally and conjunctivae normal Neck no lymphadenopathy and supple Resp normal respiratory effort, no retractions, no use of accessory muscles and clear to auscultation bilaterally Cardio regular rate, regular rhythm, S1 normal heart sound, S2 normal heart sound and no murmurs GI normal to inspection, nondistended, normoactive bowel sounds, soft to palpation, non-tender and non-distended GI Narrative: obese abdomen Extremity Extremity Narrative: severe edema of LUE, which she says is chronic. LLE wrapped in bandage Neuro oriented x3, CN's II-XII intact bilaterally and moves all extremities Sensorium / Orientation: awake and alert Lab / Micro Data Labs: Laboratory Results - last 24 hr 04/23/22 09:35: PT 13.2, INR 1.0, APTT 29.7 04/23/22 09:35: Troponin I High Sens 19 04/23/22 10:05: Blood Type AB POSITIVE, Antibody Screen NEGATIVE, Crossmatch See Detail 04/23/22 11:03: Urine Color Yellow, Urine Clarity Cloudy, Urine pH 5.0, Ur Specific [place] 1.015, Urine Protein 100 H, Urine Glucose (UA) Normal, Urine Ketones Negative, Urine Occult Blood 25 H, Urine Nitrite Negative, Urine Tushar irubin Negative, Urine Urobilinogen Normal, Ur Leukocyte Esterase 500 H, Urine RBC 0-5 SEEN, Urine WBC 25-50 SEEN, Ur Squamous Epith Cells 0-5 SEEN, Urine Bacteria 0 SEEN, Urine Mucus 0 SEEN, Urine Yeast 3+ Micro: Microbiology 04/23/22 11:25 Stool Stool Occult Blood (YELENA) - Final Occult Blood Positive 04/23/22 10:10 Nasal Secretion SARS-CoV-2 & FLU Antigen (Rapid) - Final Radiology Impression Chest X-Ray 04/23/22 09:52 IMPRESSION: Borderline cardiomegaly. Mild degree of vascular congestion. Electronically Signed: Donny Mariee MD at 11:08 EDT , Charges/Coding Visit Charges Inpatient E&M: 51588 Init Hosp L3
[2022-04-23] MEDS: Ferrous Sulfate 325 MG Tablet PO (17:06)
[2022-04-23] MEDS: Calcium (Elemental) 500 MG Tablet PO (17:07)
[2022-04-23 17:30] LABS: Bedside Glucose 130 mg/dL (74-106)
[2022-04-23] MEDS: 0.9% Normal Saline 1,000 ML 75 ML IV (19:18)
[2022-04-23] MEDS: Electrolyte Solution/Peg's 4000 ML PO (20:36)
[2022-04-23] MEDS: Bisacodyl 5 MG Tablet 20 MG PO (20:36)
[2022-04-23] MEDS: MELATONIN 3 MG TABLET PO (21:16)
[2022-04-23] MEDS: Atorvastatin Calcium 80 MG Tablet PO (21:16)
[2022-04-23] MEDS: Metoprolol Tartrate 50 MG Tablet PO (21:17)
[2022-04-23 22:20] LABS: Bedside Glucose 119 mg/dL (74-106)
[2022-04-24] VITALS (18 sets, daily range): BP systolic 123–158; BP diastolic 47–79; PULSE 48–59; RESP 14–18; TEMP 36.1–36.8; O2SAT 94–100; BMI 45.3
--- NOTE | 2022-04-24 05:55 | EKG12_ITS ---
Test Reason : AM EKG Blood Pressure : / mmHG Vent. Rate : 052 BPM Atrial Rate : 052 BPM P-R Int : 180 ms QRS Dur : 088 ms QT Int : 484 ms P-R-T Axes : 044 006 074 degrees QTc Int : 450 ms Sinus bradycardia with sinus arrhythmia Low voltage QRS Septal infarct , age undetermined Abnormal ECG Confirmed by TORY NELSON, UCHE ([id number]), social media editor GYPSY BASS ([id number]) on 04/24/2022 12:47:56 PM Referred By: JONATHON Confirmed By:UCHE SPEARS MD
[2022-04-24 06:06] LABS: Absolute Neutrophil Count 11.3 X10^3/uL (2.0-7.7); Basophil# 0.01 X10^3/uL; Basophil% 0.1 % (0-1); Eosinophil# 0.01 X10^3/uL; Eosinophils% 0.1 % (0-5); Hematocrit 21.1 % (37-47); Hemoglobin 7.2 g/dL (12.0-15.0); Lymphocyte % 8.8 % (19-41); Mean Corp Hgb Conc 34.1 g/dL (32-36); Mean Corpuscular Hgb 29.9 pg (27.0-32.0); Mean Corpuscular Volume 87.6 fL (81-99); Mean Platelet Vol. 9.2 fl (6.2-12.0); Monocyte# 0.55 X10^3/uL; NRBC Flagged by Analyzer 0.2 % (0-5); Neutrophil # 11.32 X10^3/uL (2.7-7.7); Neutrophil % 82.9 % (47-70); Platelet Count 276 K/mm3 (150-450); RBC Distribution Width CV 15.5 % (11.6-14.6); RBC Distribution Width SD 49.5 fl (35.1-43.9); Red Blood Count 2.41 M/mm3 (4.2-5.4); White Blood Count 13.7 K/mm3 (4.4-11.0)
[2022-04-24 06:15] LABS: International Normalized Ratio 1.1; Prothrombin Time (Protime)PT. 13.5 SECONDS (11.7-14.9)
[2022-04-24 06:16] LABS: Partial Thromboplast Time 30.7 Seconds (24.1-36.2)
[2022-04-24 06:38] LABS: Anion Gap 10 (5-15); BUN 127 mg/dL (7-18); BUN/Creat Ratio 55.2 RATIO (10-20); Calcium,Total 7.7 mg/dL (8.5-10.1); Chloride 96 mmol/L (98-107); EST Glomerular Filtration Rate 22 mL/min (>60); Est Glom Filt Rate - Afr Amer 27 mL/min (>60); Estimated Creatinine Clearance 17.49 ml/min; Glucose 85 mg/dL (74-106); Potassium 4.3 mmol/L (3.5-5.1); Sodium Level 128 mmol/L (136-145)
[2022-04-24 07:00] LABS: Bedside Glucose 89 mg/dL (74-106)
--- NOTE | 2022-04-24 07:28 | NURSING ---
Given tap enema x2 per [facility] Halima Arias, bowel movement x3 soft, non-formed, green. Patient denies any discomfort doing this time. Call light within reach. Patient only drink 150ML of golytely nurse sat with patient a few times and explained the procedure to patient verbalized understanding, but continue to be none complaint with golytely.
--- NOTE | 2022-04-24 09:08 | CASEMGMT ---
Discharge Product Developer Faxed over update on patient to [facility]. Tamanna Narayanan Discharge Product Developer
--- NOTE | 2022-04-24 11:02 | CASEMGMT ---
SARA spoke with patient's daughter and asked if the plan is for patient to return to [facility] at discharge. Patient's daughter asked if patient could go to TCU. SARA let her know TCU does not take patient's insurance. Patient's daughter said the plan would be to return to [facility]. Anna Hernandez KEELER POLYGRAPH OPERATOR JOVAN
--- NOTE | 2022-04-24 11:59 | PCM.CONS.GEN ---
Assessment & Plan Assessment/Plan (1) Gross hematuria: (2) Kidney calculi: (3) Urinary tract infection: (4) Chronic kidney disease (CKD): (5) Anemia: PLAN: Plan Urine culture, urine was obtained from insertion of the three-way Ryan catheter She should be on antibiotic coverage while of the continuous bladder irrigation is running Titrate continuous bladder irrigation to off if it remains clear and continue as needed manual irrigations Her previous imaging shows significant bilateral nonobstructing stones in the last time this was imaged was in 2017. I would recommend a repeated CT of her abdomen and pelvis without contrast She will need an office cystoscopy after discharge Cytology of the urine can be done once urinary tract infection is excluded or treated Thank you for the privilege of this consult. HPI Consult Data Date of Consult: 04/24/22 HPI Narrative Reason for Consultation: Gross hematuria HPI Narrative: EBONIE WOLF, is a 72 F who was admitted for anemia, GI bleed and renal insufficiency. While admitted she developed gross hematuria today. She reports seeing a urologist in the remote past but does not know why. She denies recurrent or recent urinary tract infections, no incontinence, no overactive bladder but she does have some nocturia at home. She has baseline renal insufficiency and sees Dr. Chandra for this. She has never had hematuria in the past. [facility] Medical History (Updated 04/24/22 @ 12:[address] Heather Irwin MD) (HFpEF) heart failure with preserved ejection fraction Anemia Atherosclerosis of coronary artery of [place] heart without angina pectoris Cellulitis of left lower limb Chronic headaches Chronic kidney disease (CKD) Chronic ulcer of left foot with necrosis of muscle Current use of insulin Depression Diabetic foot infection Diabetic nephropathy Difficulty chewing Difficulty swallowing DM (diabetes mellitus), type 2, uncontrolled DVT (deep venous thrombosis) Dyspnea Essential hypertension History of non-ST elevation myocardial infarction (NSTEMI) (01/13/20) Irregular heartbeat Kidney calculi Left foot infection Malnutrition Myocardial infarction Paralysis Peripheral vascular disease Post-menopausal Renal disease Restless legs Sleep apnea Status post amputation of toe of left foot Stroke Thyroiditis Type 2 diabetes mellitus with diabetic foot infection Ulcer Ulcer of left foot due to type 2 diabetes mellitus Home Medications amlodipine 10 mg tablet 10 mg PO DAILY BP 08/07/21 [History Last Taken Unknown] aspirin 81 mg capsule 81 mg PO DAILY Heart 08/07/21 [History Last Taken Unknown] metoprolol tartrate 25 mg tablet 50 mg PO BID BP 08/07/21 [History Last Taken Unknown] pantoprazole 20 mg tablet,delayed release 40 mg PO DAILY GERD 08/07/21 [History Last Taken Unknown] atorvastatin 80 mg tablet 80 mg PO QHS Cholesterol 08/12/21 [History Last Taken Unknown] clopidogrel 75 mg tablet 75 mg PO DAILY Antiplatelet 08/12/21 [History Last Taken Unknown] polyethylene glycol 3350 17 gram oral powder packet 17 g PO DAILY Constipation 08/12/21 [History Last Taken Unknown] acetaminophen 500 mg tablet 1,000 mg PO Q6H PRN PRN Pain Score 1-10 #0 tabs 08/29/21 [Rx Last Taken Unknown] bisacodyl 5 mg tablet,delayed release 10 mg PO DAILY PRN Constipation #0 tabs 08/29/21 [Rx Last Taken Unknown] oxycodone 5 mg tablet 5 mg PO Q4H PRN PRN Pain Score 6-10 3 days #18 tabs 08/29/21 [Rx Last Taken Unknown] ferrous sulfate 325 mg (65 mg iron) tablet (Iron (ferrous sulfate)) 325 mg PO TID supplement 02/21/22 [History Last Taken Unknown] insulin glargine 100 unit/mL (3 mL) subcutaneous pen (Lantus Solostar U-100 Insulin) 35 unit subcut QPM dm 02/21/22 [History Last Taken Unknown] nystatin 100,000 unit/gram topical powder (Nyamyc) 1 applic topical BID redness 02/21/22 [History Last Taken Unknown] furosemide 40 mg tablet 40 mg PO DAILY 04/22/22 [History Last Taken Unknown] levothyroxine 125 mcg tablet 125 mcg PO DAILY 04/22/22 [History Last Taken Unknown] calcitriol 0.25 mcg capsule 0.25 mcg PO DAILY 04/23/22 [History Last Taken Unknown] calcium carbonate 600 mg calcium (1,500 mg) tablet 600 mg PO BID 04/23/22 [History Last Taken Unknown] citalopram 20 mg tablet 20 mg PO DAILY 04/23/22 [History Last Taken Unknown] doxycycline hyclate 50 mg tablet 50 mg PO DAILY 04/23/22 [History Last Taken Unknown] insulin lispro 100 unit/mL subcutaneous pen 0 unit subcut TID 04/23/22 [History Last Taken Unknown] magnesium hydroxide 400 mg/5 mL oral suspension (Milk of Magnesia) 400 mg PO DAILY PRN Constipation 04/23/22 [History Last Taken Unknown] melatonin 1 mg tablet 1 mg PO QHS 04/23/22 [History Last Taken Unknown] prednisone 10 mg tablet 10 mg PO DAILY 04/23/22 [History Last Taken Unknown] Allergy/AdvReac Type Severity Reaction Status Date / Time baclofen AdvReac Other Verified 04/22/22 14:12 Family History Mother CVA (cerebral vascular accident) Other Diabetes Heart disease Surgical History H/O coronary artery bypass surgery History of heart artery stent S/P tubal ligation Status post arterial stent Status post coronary artery bypass graft Status post coronary artery stent placement Status post hysterectomy Status post transmetatarsal amputation of left foot Social History household members: children housing: [facility] Smoking Status: Never smoker ROS Constitutional Constitutional: Reports fatigue and lethargy Eyes Eyes: Reports systems reviewed and no addt'l complaints, except as documented ENT HEENT: Reports systems reviewed and no addt'l complaints, except as documented Cardiovascular Cardiovascular: Reports systems reviewed and no addt'l complaints, except as documented Respiratory/Chest Respiratory/Chest: Reports systems reviewed and no addt'l complaints, except as documented Genitourinary Genitourinary: Reports hematuria and nocturia; Denies burning urination, dribbling, dysuria, polyuria, urinary frequency, urinary hesitancy, urinary incontinence or urinary urgency Musculoskeletal Musculoskeletal: Reports systems reviewed and no addt'l complaints, except as documented Integumentary Integumentary: Reports systems reviewed and no addt'l complaints, except as documented Neurologic Neurologic: Reports systems reviewed and no addt'l complaints, except as documented Psychiatric Psychiatric: Reports systems reviewed and no addt'l complaints, except as documented Endocrine Endocrinology: Reports systems reviewed and no addt'l complaints, except as documented Physical Exam Const alert, oriented x3 and no apparent distress General Appearance: cooperative and comfortable Orientation / Consciousness: awake Nutritional Appearance: obese HEENT normocephalic, head/scalp atraumatic, hearing grossly normal bilaterally, external ears normal and external nose normal Nose: external nose normal Eyes General Eye: normal appearance of both eyes Neck supple General: normal visual inspection and trachea midline Chest inspection of chest normal Chest: symmetrical chest wall rise Resp normal respiratory effort, normal air movement, no retractions and no use of accessory muscles Effort and Inspection: able to speak in complete sentences and symmetric chest movement Cardio regular rate GI Palpation: soft Narrative: There is diffuse edema of her legs, abdomen and labia. The exam is difficult secondary to her body habitus and edema. Her indwelling Ryan catheter was removed. A 24 [place] three-way Ryan catheter was inserted without difficulty and 30 cc was placed in the balloon. The Ryan catheter was then irrigated with sterile water and multiple small clots were removed. The urine cleared. A saline bag was hung for continuous bladder irrigation which remained clear. This portion of the consultation was performed while the patient was under anesthesia for an upper endoscopy. Neuro oriented x3, CN's II-XII intact bilaterally and moves all extremities Lab / Micro Data Result Diagrams: 04/24/22 05:33 04/24/22 05:33 Labs: Laboratory Results - last 24 hr 04/23/22 10:05: Blood Type AB POSITIVE, Antibody Screen NEGATIVE, Crossmatch See Detail 04/23/22 17:05: POC Glucose 130 H 04/23/22 21:13: POC Glucose 119 H 04/24/22 05:33: WBC 13.7 H, RBC 2.41 L, Hgb 7.2 L, Hct 21.1 L, MCV 87.6, MCH 29.9, MCHC 34.1, RDW Std Deviation 49.5 H, RDW Coeff of Jenna 15.5 H, Plt Count 276, MPV 9.2, Immature Gran % (Auto) 4.100 H, Neut % (Auto) 82.9 H, Lymph % (Auto) 8.8 L, [place] % (Auto) 4.0, Eos % (Auto) 0.1, Baso % (Auto) 0.1, Absolute Neuts (auto) 11.3 H, Absolute Lymphs (auto) 1.20, Nucleated RBC % 0.2 04/24/22 05:33: Sodium 128 L, Potassium 4.3, Chloride 96 L, Carbon Dioxide 22.0, Anion Gap 10, BUN 127 H*, Creatinine 2.30 H, Estim Creat Clear Calc 17.49, Est GFR (MDRD) Af Amer 27 L, Est GFR (MDRD) Non-Af 22 L, BUN/Creatinine Ratio 55.2 H, Glucose 85, Calcium 7.7 L 04/24/22 05:33: PT 13.5, INR 1.1, APTT 30.7 04/24/22 06:47: POC Glucose 89 Micro: Microbiology 04/23/22 Unknown Urine Catheter - Ryan Urine Culture - Preliminary GNR Poss Pseudomonas sp 04/23/22 11:25 Stool Stool Occult Blood (YELENA) - Final Occult Blood Positive 04/23/22 10:10 Nasal Secretion SARS-CoV-2 & FLU Antigen (Rapid) - Final
--- NOTE | 2022-04-24 12:08 | OP.EGD_ITS ---
Patient Name: Hayley Crawford Procedure Date: 04/24/2022 11:29 AM Date of : 1950 Age: 72 Procedure: Upper GI endoscopy Indications: Iron deficiency anemia Providers: Tima Vazquez DO Medicines: Monitored Anesthesia Care Patient Profile: This is a 72 year old female. Refer to note in patient chart for documentation of history and physical. Patient has symptoms. Complications: No immediate complications. Procedure: Pre-Anesthesia Assessment: - Prior to the procedure, a History and Physical was performed, and patient medications and allergies were reviewed. The risks and benefits of the procedure and the sedation options and risks were discussed with the patient. All questions were answered and informed consent was obtained. Patient identification and proposed procedure were verified by the physician. Mental Status Examination: normal. CV Examination: normal. Prophylactic Antibiotics: The patient does not require prophylactic antibiotics. Prior Anticoagulants: The patient has taken no previous anticoagulant or antiplatelet agents. After reviewing the risks and benefits, the patient was deemed in satisfactory condition to undergo the procedure. The anesthesia plan was to use moderate sedation / analgesia (conscious sedation). Immediately prior to administration of medications, the patient was re-assessed for adequacy to receive sedatives. The heart rate, respiratory rate, oxygen saturations, blood pressure, adequacy of pulmonary ventilation, and response to care were monitored throughout the procedure. The physical status of the patient was re-assessed after the procedure. After obtaining informed consent, the endoscope was passed under direct vision. Throughout the procedure, the patient's blood pressure, pulse, and oxygen saturations were monitored continuously. The colonoscope was introduced through the mouth, and advanced to the second part of duodenum. The upper GI endoscopy was accomplished without difficulty. The patient tolerated the procedure well. Scope In: 11:38:47 AM Scope Out: 11:44:25 AM Total Procedure Duration Time 0 hours 5 minutes 38 seconds Findings: There was a lot of red blood mixed with melanotic stool seen throughout the colon. Any exact source of the bleeding was not seen. It could be from an upper GI source. Two Telangectasia's were seen in the esophagus . Coagulation for hemostasis using heater probe was successful. Estimated blood loss was minimal. Localized mild inflammation characterized by congestion (edema) and erosions was found in the gastric body. The third portion of the duodenum was normal. Impression: - Gastritis. - Normal third portion of the duodenum. - No specimens collected. Recommendation: - Return patient to [facility] for [facility] care. - Resume previous diet. - Continue present medications. Procedure Code(s): --- Professional --- 23040, Esophagogastroduodenoscopy, flexible, transoral; with control of bleeding, any method CPT copyright 2017 [employer] [place] [employer]. All rights reserved. The codes documented in this report are preliminary and upon per diem review may be revised to meet current compliance requirements. Tima Vazquez DO 04/24/2022 12:07:52 PM This report has been signed electronically. Number of Addenda: 1 Note Initiated On: 04/24/2022 11:29 AM Addendum Number: 1 Addendum Date: 08/11/2022 6:11:09 AM MAC was used as sedation for this procedure. Tima Vazquez DO 08/11/2022 6:11:13 AM This report has been signed electronically.
--- NOTE | 2022-04-24 12:09 | OP.CCLET_ITS ---
08/11/2022 Elia Ceja MD [address] [place] [address] Re : Upper GI endoscopy procedure for Hayley Crawford Dear Dr. Ceja This procedure was performed on Sunday, April 24, 2022. My impressions and recommendations are as follows: Impressions : - Gastritis. - Normal third portion of the duodenum. - No specimens collected. Recommendations : - [facility]. - Resume previous diet. - Continue present medications. My findings are described in the full procedure note, which is enclosed. If I can be of further assistance, please feel free to contact me at . Sincerely, Tima Vazquez DO 04/24/2022 12:07:52 PM This report has been signed electronically.
--- NOTE | 2022-04-24 12:17 | PN.HOSP_ITS ---
Subjective Subjective Patient seen and examined. She had no active complaints and had an uneventful night. She is now having hematuria, as the urine in the Ryan and urine bag is bloody. She denies any abdominal pain, nausea, vomiting, hematemesis or any other symptoms. REview of systems is otherwise negative. Objective Data Objective Data Vital Signs: Vital Signs Temp Pulse Resp BP Pulse Ox 97.3 F L 51 L 18 123/63 H 98 04/24/22 09:00 04/24/22 11:00 04/24/22 09:00 04/24/22 09:00 04/24/22 09:00 Oxygen Delivery Method Room Air Weight: 247 lb 11.206 oz Body Mass Index (BMI) 45.3 Intake & Output: Intake and Output for Last 24 Hours 04/22/22 04/23/22 04/24/22 23:59 23:59 23:59 Intake Total 585 / 585 1098.5 / 1098.5 Output Total 1000 / 1000 350 / 350 Balance -415 / -415 748.5 / 748.5 Lab / Micro Data Result Diagrams: 04/24/22 05:33 04/24/22 05:33 Labs: Laboratory Results - last 24 hr 04/23/22 10:05: Blood Type AB POSITIVE, Antibody Screen NEGATIVE, Crossmatch See Detail 04/23/22 17:05: POC Glucose 130 H 04/23/22 21:13: POC Glucose 119 H 04/24/22 05:33: WBC 13.7 H, RBC 2.41 L, Hgb 7.2 L, Hct 21.1 L, MCV 87.6, MCH 29.9, MCHC 34.1, RDW Std Deviation 49.5 H, RDW Coeff of Jenna 15.5 H, Plt Count 276, MPV 9.2, Immature Gran % (Auto) 4.100 H, Neut % (Auto) 82.9 H, Lymph % (Auto) 8.8 L, [place] % (Auto) 4.0, Eos % (Auto) 0.1, Baso % (Auto) 0.1, Absolute Neuts (auto) 11.3 H, Absolute Lymphs (auto) 1.20, Nucleated RBC % 0.2 04/24/22 05:33: Sodium 128 L, Potassium 4.3, Chloride 96 L, Carbon Dioxide 22.0, Anion Gap 10, BUN 127 H*, Creatinine 2.30 H, Estim Creat Clear Calc 17.49, Est GFR (MDRD) Af Amer 27 L, Est GFR (MDRD) Non-Af 22 L, BUN/Creatinine Ratio 55.2 H , Glucose 85, Calcium 7.7 L 04/24/22 05:33: PT 13.5, INR 1.1, APTT 30.7 04/24/22 06:47: POC Glucose 89 Micro: Microbiology 04/23/22 Unknown Urine Catheter - Ryan Urine Culture - Preliminary GNR Poss Pseudomonas sp 04/23/22 11:25 Stool Stool Occult Blood (YELENA) - Final Occult Blood Positive 04/23/22 10:10 Nasal Secretion SARS-CoV-2 & FLU Antigen (Rapid) - Final Physical Exam Const alert, oriented x3 and no apparent distress HEENT normocephalic, head/scalp atraumatic, hearing grossly normal bilaterally and moist oral mucous membranes Eyes PERRL, EOMs intact bilaterally and conjunctivae normal Neck no lymphadenopathy and supple Resp normal respiratory effort, no retractions, no use of accessory muscles and clear to auscultation bilaterally Cardio regular rate, regular rhythm, S1 normal heart sound, S2 normal heart sound and no murmurs GI normal to inspection, nondistended, normoactive bowel sounds, soft to palpation, non-tender and non-distended GI Narrative: obese abdomen Extremity Extremity Narrative: severe edema of LUE, which she says is chronic. LLE wrapped in bandage Neuro oriented x3, CN's II-XII intact bilaterally and moves all extremities Sensorium / Orientation: awake and alert Assessment & Plan Assessment/Plan (1) Upper gastrointestinal bleeding: (2) Anemia: PLAN: Plan #Acute on chronic anemia due to GI bleed * s/p transfusion of one unit of PRBCs. Hb today is 7.2. 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 This is likely due to the probable UGI bleed. * CR is 2.3 * appears to be at baseline. * On calcitriol and calcium carbonate * #Hematuria * patient noted to be having hematuria this morning. * urology consulted. Continue gentle hydration with iVF * #Hypertension; on amlodipine, metoprolol #Type 2 diabetes mellitus: Hold Lantus. Insulin 35 units nightly. Insulin sliding scale. Accu-Cheks ACH S. #Hypothyroidism due to thyroidectomy for thyroid cancer: On Synthroid #Hyperlipidemia: On statin #History of heart failure preserved ejection fraction: Not in exacerbation. On Lasix. #History of CAD s/p CABG: Aspirin and Plavix on hold due to GI bleed. On high intensity statin. #Depression: On citalopram DVT prophylaxis: SCDs GI prophylaxis: On pantoprazole drip CODE STATUS: Full code * Charges/Coding Visit Charges Inpatient E&M: 71654 Subs Hosp L3
[2022-04-24] MEDS: Ferrous Sulfate 325 MG Tablet PO ×2 (13:29→17:08)
[2022-04-24] MEDS: Citalopram 20 MG Tablet PO (13:29)
[2022-04-24] MEDS: predniSONE 10 MG Tablet PO (13:29)
[2022-04-24] MEDS: Calcitriol 0.25 MCG Capsule PO (13:30)
[2022-04-24] MEDS: Calcium (Elemental) 500 MG Tablet PO ×2 (13:30→17:08)
[2022-04-24] MEDS: Furosemide 40 MG Tablet PO (13:30)
[2022-04-24] MEDS: amLODIPine 10 MG Tablet PO (13:30)
[2022-04-24] MEDS: Cefazolin 1 GM/50 ML BAG IV ×2 (13:50→21:13)
[2022-04-24 17:15] LABS: Bedside Glucose 78 mg/dL (74-106)
[2022-04-24] MEDS: Atorvastatin Calcium 80 MG Tablet PO (21:40)
[2022-04-24] MEDS: MELATONIN 3 MG TABLET PO (21:40)
[2022-04-24 23:20] LABS: Bedside Glucose 90 mg/dL (74-106)
[2022-04-25] VITALS (12 sets, daily range): BP systolic 101–177; BP diastolic 46–78; PULSE 56–62; RESP 16–20; TEMP 36.6–37; O2SAT 98–100
[2022-04-25] MEDS: Levothyroxine 125 MCG Tablet PO (06:59)
[2022-04-25 07:20] LABS: Bedside Glucose 79 mg/dL (74-106)
[2022-04-25] MEDS: predniSONE 10 MG Tablet PO (08:38)
[2022-04-25] MEDS: Ferrous Sulfate 325 MG Tablet PO ×3 (08:38→16:31)
[2022-04-25] MEDS: Furosemide 40 MG Tablet PO (08:38)
[2022-04-25] MEDS: Metoprolol Tartrate 50 MG Tablet PO ×2 (08:38→21:16)
[2022-04-25] MEDS: Calcium (Elemental) 500 MG Tablet PO ×2 (08:38→16:31)
[2022-04-25] MEDS: Calcitriol 0.25 MCG Capsule PO (08:38)
[2022-04-25] MEDS: Citalopram 20 MG Tablet PO (08:39)
[2022-04-25] MEDS: amLODIPine 10 MG Tablet PO (08:39)
[2022-04-25 08:41] LABS: Absolute Lymphocyte Count 0.89 X10^3/uL (0.83-4.51); Absolute Neutrophil Count 12.8 X10^3/uL (2.0-7.7); Basophil# 0.03 X10^3/uL; Basophil% 0.2 % (0-1); Eosinophil# 0.02 X10^3/uL; Eosinophils% 0.1 % (0-5); Hematocrit 23.6 % (37-47); Hemoglobin 7.9 g/dL (12.0-15.0); Lymphocyte # 0.89 X10^3/ul (0.83-4.51); Mean Corp Hgb Conc 33.5 g/dL (32-36); Mean Corpuscular Hgb 29.7 pg (27.0-32.0); Mean Corpuscular Volume 88.7 fL (81-99); Mean Platelet Vol. 9.6 fl (6.2-12.0); Monocyte# 0.49 X10^3/uL; Monocyte% 3.3 % (0-10); NRBC Flagged by Analyzer 0.1 % (0-5); Neutrophil # 12.82 X10^3/uL (2.7-7.7); Neutrophil % 87.1 % (47-70); Platelet Count 295 K/mm3 (150-450); RBC Distribution Width CV 15.1 % (11.6-14.6); RBC Distribution Width SD 49.1 fl (35.1-43.9); Red Blood Count 2.66 M/mm3 (4.2-5.4); White Blood Count 14.7 K/mm3 (4.4-11.0)
--- NOTE | 2022-04-25 08:43 | PN_ITS ---
Subjective Subjective No events overnight for the patient and regarding GI bleeding. She is tolerating a diet. She underwent an upper endoscopy yesterday. Objective Data Objective Data Vital Signs: Vital Signs Temp Pulse Resp BP Pulse Ox 98.0 F 62 18 177/78 H 99 04/25/22 08:35 04/25/22 08:38 04/25/22 08:35 04/25/22 08:38 04/25/22 08:35 Oxygen Delivery Method Room Air Weight: 247 lb 11.206 oz Body Mass Index (BMI) 45.3 Intake & Output: Intake and Output for Last 24 Hours 04/23/22 04/24/22 04/25/22 23:59 23:59 23:59 Intake Total 585 / 585 1464.34 / 1464.34 65 / 65 Output Total 1000 / 1000 750 / 1400 1000 / 1000 Balance -415 / -415 714.34 / 64.34 -935 / -935 Lab / Micro Data Result Diagrams: 04/25/22 08:21 04/24/22 05:33 Labs: Laboratory Results - last 24 hr 04/24/22 17:06: POC Glucose 78 04/24/22 22:35: POC Glucose 90 04/25/22 07:07: POC Glucose 79 04/25/22 08:21: WBC 14.7 H, RBC 2.66 L, Hgb 7.9 L, Hct 23.6 L, MCV 88.7, MCH 29.7, MCHC 33.5, RDW Std Deviation 49.1 H, RDW Coeff of Jenna 15.1 H, Plt Count 295, MPV 9.6, Immature Gran % (Auto) 3.300 H, Neut % (Auto) 87.1 H, Lymph % (Auto) 6.0 L, [place] % (Auto) 3.3, Eos % (Auto) 0.1, Baso % (Auto) 0.2, Absolute Neuts (auto) 12.8 H, Absolute Lymphs (auto) 0.89, Nucleated RBC % 0.1 Micro: Microbiology 04/24/22 12:00 Urine, Catheterized Urine Culture - Preliminary GNR Poss Pseudomonas sp 04/23/22 Unknown Urine Catheter - Ryan Urine Culture - Preliminary Pseudomonas aeroginosa 04/23/22 11:25 Stool Stool Occult Blood (YELENA) - Final Occult Blood Positive 04/23/22 10:10 Nasal Secretion SARS-CoV-2 & FLU Antigen (Rapid) - Final Physical Exam Const alert, oriented x3 and no apparent distress HEENT normocephalic, head/scalp atraumatic, hearing grossly normal bilaterally and moist oral mucous membranes Neck no lymphadenopathy and supple Resp normal respiratory effort, no retractions, no use of accessory muscles and clear to auscultation bilaterally Cardio regular rate, regular rhythm, S1 normal heart sound, S2 normal heart sound and no murmurs GI normal to inspection, nondistended, normoactive bowel sounds, soft to palpation, non-tender and non-distended GI Narrative: obese abdomen Extremity Extremity Narrative: severe edema of LUE, which she says is chronic. 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 She had a similar bleed from an AVM that was previously seen and cauterized. She did not undergo colonoscopy yesterday due to incomplete prep and the fact that she was having gross hematuria. She underwent treatment by urology during the procedure for gross hematuria. Her hemoglobin is not significantly lower. If she is not going to undergo any urologic procedure she can have a colonoscopy reattempted while she is in the hospital to look for sources of her anemia. Charges/Coding Visit Charges Inpatient E&M: 01105 Subs Hosp L2
--- NOTE | 2022-04-25 08:55 | CT_ITS ---
STUDY: CT ABDOMEN AND PELVIS WITHOUT CONTRAST REASON FOR EXAM: Female, 72 years old. Gross hematuria, stones, renal insufficiency RADIATION DOSAGE (If Supplied By Facility): CTDIvol = ( 23.07 ) mGy, DLP = ( 1302.88 ) mGycm TECHNIQUE: Transaxial images were obtained from the dome of the diaphragm to the symphysis pubis without oral contrast, and without intravenous contrast. Sagittal and coronal images were reconstructed. Individualized dose optimization techniques were used for this CT. COMPARISON: 06/11/2017 FINDINGS: Motion artifact degrees anatomic detail. There are bilateral pleural effusions, right greater than left associated with minimal dependent consolidation within the lower lobes. There are coronary artery calcifications. The lack of intravenous contrast limits evaluation of solid visceral organs. Normal liver. Normal gallbladder and extrahepatic biliary system. Normal spleen. There are gallstones within the gallbladder. There is free fluid throughout the abdomen and pelvis. Normal bilateral adrenal glands. Normal right kidney. Normal left kidney. Normal visualized stomach. Normal small intestine. Normal colon. The appendix is visualized and appears normal. There is diffuse atherosclerotic calcification of the abdominal aorta, without a demonstrated aneurysm. Normal inferior vena cava. Normal retroperitoneum. There is a Ryan catheter within the urinary bladder. There is bladder wall thickening. There is air within the urinary bladder likely secondary to instrumentation. There is extensive subcutaneous edema. There are post surgical changes within the left inguinal region. There are diffuse degenerative changes of the visualized lumbar spine. CT/Abdomen/Pelvis without Cont IMPRESSION: Bladder wall thickening, this may partially secondary to its incompletely distended state however cannot exclude a history of cystitis. Ascites Bilateral pleural effusions associated with dependent lower lobe consolidation. Subcutaneous edema. Atherosclerosis. Electronically Signed: Citlaly Lozano MD at 10:22 EDT ,
--- NOTE | 2022-04-25 09:00 | PCM.PN.GU ---
Subjective Subjective Feeling well this am. No complaints. Objective Data Objective Data Vital Signs: Vital Signs Temp Pulse Resp BP Pulse Ox 98.0 F 62 18 177/78 H 99 04/25/22 08:35 04/25/22 08:38 04/25/22 08:35 04/25/22 08:38 04/25/22 08:35 Oxygen Delivery Method Room Air Weight: 112.355 kg Body Mass Index (BMI) 45.3 Intake & Output: Intake and Output for Last 24 Hours 04/23/22 04/24/22 04/25/22 23:59 23:59 23:59 Intake Total 585 / 585 1464.34 / 1464.34 65 / 65 Output Total 1000 / 1000 750 / 1400 1000 / 1000 Balance -415 / -415 714.34 / 64.34 -935 / -935 Lab / Micro Data Result Diagrams: 04/25/22 08:21 04/24/22 05:33 Labs: Laboratory Results - last 24 hr 04/24/22 17:06: POC Glucose 78 04/24/22 22:35: POC Glucose 90 04/25/22 07:07: POC Glucose 79 04/25/22 08:21: WBC 14.7 H, RBC 2.66 L, Hgb 7.9 L, Hct 23.6 L, MCV 88.7, MCH 29.7, MCHC 33.5, RDW Std Deviation 49.1 H, RDW Coeff of Jenna 15.1 H, Plt Count 295, MPV 9.6, Immature Gran % (Auto) 3.300 H, Neut % (Auto) 87.1 H, Lymph % (Auto) 6.0 L, [place] % (Auto) 3.3, Eos % (Auto) 0.1, Baso % (Auto) 0.2, Absolute Neuts (auto) 12.8 H, Absolute Lymphs (auto) 0.89, Nucleated RBC % 0.1 Micro: Microbiology 04/24/22 12:00 Urine, Catheterized Urine Culture - Preliminary GNR Poss Pseudomonas sp Yeast, not Izzy albicans 04/23/22 Unknown Urine Catheter - Strong Urine Culture - Preliminary Pseudomonas aeroginosa 04/23/22 11:25 Stool Stool Occult Blood (YELENA) - Final Occult Blood Positive 04/23/22 10:10 Nasal Secretion SARS-CoV-2 & FLU Antigen (Rapid) - Final Physical Exam Narrative abdomen soft. strong draining clear yellow with CBI clamped. Const alert, oriented x3 and no apparent distress General Appearance: cooperative and comfortable HEENT normocephalic and head/scalp atraumatic Neck supple General: trachea midline Resp normal respiratory effort, normal air movement, no retractions and no use of accessory muscles Cardio regular rate and regular rhythm GI soft to palpation no CVA tenderness Bladder / Kidney Exam: catheter in place Neuro oriented x3 Psych mental status grossly normal Assessment & Plan Assessment/Plan (1) Kidney calculi: PLAN: CT ordered, no contrast (2) Gross hematuria: PLAN: resolved. ok to remove strong catheter per primary service (3) Urinary tract infection: PLAN: culture growing pseudomonas, sensitive to cephalosporins continue antibiotics per primary service, ok to use oral when medically decided PLAN: Plan will need out patient follow up with me. she is aware.
[2022-04-25 09:14] LABS: Anion Gap 10 (5-15); BUN 124 mg/dL (7-18); BUN/Creat Ratio 54.4 RATIO (10-20); Calcium,Total 8.1 mg/dL (8.5-10.1); Chloride 96 mmol/L (98-107); Creatinine, Serum 2.28 mg/dL (0.55-1.02); EST Glomerular Filtration Rate 22 mL/min (>60); Est Glom Filt Rate - Afr Amer 27 mL/min (>60); Estimated Creatinine Clearance 17.64 ml/min; Glucose 79 mg/dL (74-106); Potassium 4.3 mmol/L (3.5-5.1); Sodium Level 128 mmol/L (136-145)
[2022-04-25] MEDS: Cefazolin 1 GM/50 ML BAG IV (09:57)
[2022-04-25] MEDS: 0.9% Saline Lock 10 ML Syringe IV ×2 (09:57→18:48)
[2022-04-25 11:30] LABS: Bedside Glucose 79 mg/dL (74-106)
--- NOTE | 2022-04-25 11:55 | PN.HOSP_ITS ---
Subjective Subjective Patient seen and examined. She had no active complaints. She had EGD yesterday which showed gastritis. She didnt drink the colonoscopy prep, so she couldnt have the colonoscopy. She had bladder irrigation and her urine has cleared up and is no longer bloody. Review of systems is otherwise negative. Objective Data Objective Data Vital Signs: Vital Signs Temp Pulse Resp BP Pulse Ox 98.0 F 62 18 177/78 H 99 04/25/22 08:35 04/25/22 08:38 04/25/22 08:35 04/25/22 08:38 04/25/22 08:35 Oxygen Delivery Method Room Air Weight: 247 lb 11.206 oz Body Mass Index (BMI) 45.3 Intake & Output: Intake and Output for Last 24 Hours 04/23/22 04/24/22 04/25/22 23:59 23:59 23:59 Intake Total 585 / 585 1464.34 / 1464.34 164.33 / 164.33 Output Total 1000 / 1000 750 / 1400 1000 / 1000 Balance -415 / -415 714.34 / 64.34 -835.67 / -835.67 Lab / Micro Data Result Diagrams: 04/25/22 08:21 04/25/22 08:21 Labs: Laboratory Results - last 24 hr 04/24/22 17:06: POC Glucose 78 04/24/22 22:35: POC Glucose 90 04/25/22 07:07: POC Glucose 79 04/25/22 08:21: WBC 14.7 H, RBC 2.66 L, Hgb 7.9 L, Hct 23.6 L, MCV 88.7, MCH 29.7, MCHC 33.5, RDW Std Deviation 49.1 H, RDW Coeff of Jenna 15.1 H, Plt Count 295, MPV 9.6, Immature Gran % (Auto) 3.300 H, Neut % (Auto) 87.1 H, Lymph % (Auto) 6.0 L, [place] % (Auto) 3.3, Eos % (Auto) 0.1, Baso % (Auto) 0.2, Absolute Neuts (auto) 12.8 H, Absolute Lymphs (auto) 0.89, Nucleated RBC % 0.1 04/25/22 08:21: Sodium 128 L, Potassium 4.3, Chloride 96 L, Carbon Dioxide 22.0, Anion Gap 10, BUN 124 H*, Creatinine 2.28 H, Estim Creat Clear Calc 17.64, Est GFR (MDRD) Af Amer 27 L, Est GFR (MDRD) Non-Af 22 L, BUN/Creatinine Ratio 54.4 H , Glucose 79, Calcium 8.1 L 04/25/22 11:19: POC Glucose 79 Micro: Microbiology 04/23/22 Unknown Urine Catheter - Strong Urine Culture - Final Pseudomonas aeroginosa Yeast, not Izzy albicans 04/24/22 12:00 Urine, Catheterized Urine Culture - Preliminary GNR Poss Pseudomonas sp Yeast, not Izzy albicans 04/23/22 11:25 Stool Stool Occult Blood (YELENA) - Final Occult Blood Positive 04/23/22 10:10 Nasal Secretion SARS-CoV-2 & FLU Antigen (Rapid) - Final Radiography Diagnostic Testing: Radiology Impression Abdomen/Pelvis CT 04/25/22 08:55 IMPRESSION: Bladder wall thickening, this may partially secondary to its incompletely distended state however cannot exclude a history of cystitis. Ascites Bilateral pleural effusions associated with dependent lower lobe consolidation. Subcutaneous edema. Atherosclerosis. Electronically Signed: Citlaly Lozano MD at 10:22 EDT , Physical Exam Const alert, oriented x3 and no apparent distress HEENT normocephalic, head/scalp atraumatic, hearing grossly normal bilaterally and moist oral mucous membranes Eyes PERRL, EOMs intact bilaterally and conjunctivae normal Neck no lymphadenopathy and supple Resp normal respiratory effort, no retractions, no use of accessory muscles and clear to auscultation bilaterally Cardio regular rate, regular rhythm, S1 normal heart sound, S2 normal heart sound and no murmurs GI normal to inspection, nondistended, normoactive bowel sounds, soft to palpation, non-tender and non-distended GI Narrative: obese abdomen Extremity Extremity Narrative: severe edema of LUE, which she says is chronic. LLE wrapped in bandage Neuro oriented x3, CN's II-XII intact bilaterally and moves all extremities Sensorium / Orientation: awake and alert Motor Exam: strength 5/5 throughout Psych affect normal Assessment & Plan Assessment/Plan (1) Upper gastrointestinal bleeding: (2) Anemia: PLAN: Plan #Acute on chronic anemia due to GI bleed * s/p transfusion of one unit of PRBCs. 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 * gastroenterology on board * didnt drink the colonoscopy prep, so couldnt have colonoscopy * switch to PO pantoprazole * # #CKD with uremia * BUN is 124 today * CR is 2.28 today. * appears to be at baseline. * On calcitriol and calcium carbonate * #Hematuria * resolving * urology on board. Had bladder irrigation and urine has cleared up * discussed with urology and it seems hematuria was thought to be due to UTI * CT abdomen adn pelvis was negative for any kidney stones * will dc strong catheter. * * #UTI * urine cultures growing Pseudomonas. * will start on IV cefepime * #Hypertension; on amlodipine, metoprolol #Type 2 diabetes mellitus: Hold Lantus. Insulin 35 units nightly. Insulin sliding scale. Accu-Cheks ACH S. #Hypothyroidism due to thyroidectomy for thyroid cancer: On Synthroid #Hyperlipidemia: On statin #History of heart failure preserved ejection fraction: Not in exacerbation. On Lasix. #History of CAD s/p CABG: Aspirin and Plavix on hold due to GI bleed. On high intensity statin. #Depression: On citalopram DVT prophylaxis: SCDs GI prophylaxis: switch to PO pantoprazole CODE STATUS: Full code * Charges/Coding Visit Charges Inpatient E&M: 56372 Subs Hosp L2
[2022-04-25 16:50] LABS: Bedside Glucose 94 mg/dL (74-106)
[2022-04-25] MEDS: MELATONIN 3 MG TABLET PO (21:16)
[2022-04-25] MEDS: Atorvastatin Calcium 80 MG Tablet PO (21:17)
[2022-04-25] MEDS: Pantoprazole Sodium 40 MG Tablet PO (21:17)
[2022-04-25] MEDS: Acetaminophen 500 MG Tablet 1000 MG PO (23:03)
[2022-04-25] MEDS: oxyCODONE 5 MG Tablet PO (23:03)
[2022-04-25 23:16] LABS: Bedside Glucose 132 mg/dL (74-106)
[2022-04-26] VITALS (7 sets, daily range): BP systolic 129–138; BP diastolic 55–63; PULSE 50–55; RESP 18–20; TEMP 36.7–37.1; O2SAT 97–99
[2022-04-26] MEDS: Levothyroxine 125 MCG Tablet PO (06:31)
[2022-04-26 06:32] LABS: Absolute Lymphocyte Count 0.93 X10^3/uL (0.83-4.51); Basophil# 0.02 X10^3/uL; Basophil% 0.2 % (0-1); Eosinophil# 0.03 X10^3/uL; Eosinophils% 0.2 % (0-5); Hematocrit 22.7 % (37-47); Hemoglobin 7.5 g/dL (12.0-15.0); Lymphocyte # 0.93 X10^3/ul (0.83-4.51); Lymphocyte % 7.2 % (19-41); Mean Corpuscular Hgb 29.3 pg (27.0-32.0); Mean Corpuscular Volume 88.7 fL (81-99); Mean Platelet Vol. 9.4 fl (6.2-12.0); Monocyte% 4.6 % (0-10); NRBC Flagged by Analyzer 0 % (0-5); Neutrophil # 11.03 X10^3/uL (2.7-7.7); Neutrophil % 85.3 % (47-70); Platelet Count 282 K/mm3 (150-450); RBC Distribution Width SD 48.3 fl (35.1-43.9); Red Blood Count 2.56 M/mm3 (4.2-5.4); White Blood Count 12.9 K/mm3 (4.4-11.0)
[2022-04-26 07:13] LABS: Anion Gap 9 (5-15); BUN 119 mg/dL (7-18); BUN/Creat Ratio 52.4 RATIO (10-20); Calcium,Total 7.9 mg/dL (8.5-10.1); Chloride 97 mmol/L (98-107); Creatinine, Serum 2.27 mg/dL (0.55-1.02); EST Glomerular Filtration Rate 23 mL/min (>60); Est Glom Filt Rate - Afr Amer 27 mL/min (>60); Estimated Creatinine Clearance 17.72 ml/min; Glucose 98 mg/dL (74-106); Sodium Level 130 mmol/L (136-145)
[2022-04-26 08:16] LABS: Bedside Glucose 101 mg/dL (74-106)
[2022-04-26] MEDS: Ferrous Sulfate 325 MG Tablet PO ×2 (08:26→12:52)
[2022-04-26] MEDS: Calcium (Elemental) 500 MG Tablet PO (08:26)
[2022-04-26] MEDS: predniSONE 10 MG Tablet PO (08:27)
[2022-04-26] MEDS: Calcitriol 0.25 MCG Capsule PO (08:27)
[2022-04-26] MEDS: Citalopram 20 MG Tablet PO (08:27)
[2022-04-26] MEDS: Polyethylene Glycol 3350 17 GM PACKET PO (08:28)
[2022-04-26] MEDS: Pantoprazole Sodium 40 MG Tablet PO (08:28)
[2022-04-26] MEDS: amLODIPine 10 MG Tablet PO (08:29)
[2022-04-26] MEDS: Furosemide 40 MG Tablet PO (08:29)
[2022-04-26] MEDS: 0.9% Saline Lock 10 ML Syringe IV (09:52)
[2022-04-26 11:16] LABS: Bedside Glucose 101 mg/dL (74-106)
--- NOTE | 2022-04-26 11:53 | DS.PCM_ITS ---
Providers Date of Admission: 04/23/22 Date of Discharge: 04/26/22 Primary Care Physician: Dr. Elia Ceja MD Consultations 04/23/22 14:02 Consult: Gastroenterology Routine Consulting Provider: Sw[facility] G[facility] Reason for Consult: acute GI bleed EMERGENT Consult: No Notified: Yes Date Notified: 04/23/22 Time Notified: 14:03 Method of Notification: Text 04/23/22 14:39 Consult: Onc/Wound/information analyst Routine Comment: Reason for Consult:: LT FOOT/CALF WOUND 04/24/22 11:57 Consult: Urology Routine Consulting Provider: Heather Irwin Reason for Consult: hematuria EMERGENT Consult: No Notified: Yes Date Notified: 04/24/22 Time Notified: 11:57 Method of Notification: Text Reason For Visit: ACUTE ON CHRONIC ANEMIA, ACUTE METABOLIC Diagnosis Discharge Diagnosis (1) Upper gastrointestinal bleeding: Status: Acute Code(s): K92.2 - Gastrointestinal hemorrhage, unspecified (2) Anemia: Status: Acute Code(s): D64.9 - Anemia, unspecified Medications at Discharge Home Medications amlodipine 10 mg tablet 10 mg PO DAILY BP 08/07/21 aspirin 81 mg capsule 81 mg PO DAILY Heart 08/07/21 metoprolol tartrate 25 mg tablet 50 mg PO BID BP 08/07/21 pantoprazole 20 mg tablet,delayed release 40 mg PO DAILY GERD 08/07/21 atorvastatin 80 mg tablet 80 mg PO QHS Cholesterol 08/12/21 clopidogrel 75 mg tablet 75 mg PO DAILY Antiplatelet 08/12/21 polyethylene glycol 3350 17 gram oral powder packet 17 g PO DAILY Constipation 08/12/21 acetaminophen 500 mg tablet 1,000 mg PO Q6H PRN PRN Pain Score 1-10 #0 tabs 08/29/21 bisacodyl 5 mg tablet,delayed release 10 mg PO DAILY PRN Constipation #0 tabs 08/29/21 oxycodone 5 mg tablet 5 mg PO Q4H PRN PRN Pain Score 6-10 3 days #18 tabs 08/29/21 ferrous sulfate 325 mg (65 mg iron) tablet (Iron (ferrous sulfate)) 325 mg PO TID supplement 02/21/22 insulin glargine 100 unit/mL (3 mL) subcutaneous pen (Lantus Solostar U-100 Insulin) 35 unit subcut QPM dm 02/21/22 nystatin 100,000 unit/gram topical powder (Mtamyc) 1 applic topical BID redness 02/21/22 furosemide 40 mg tablet 40 mg PO DAILY 04/22/22 levothyroxine 125 mcg tablet 125 mcg PO DAILY 04/22/22 calcitriol 0.25 mcg capsule 0.25 mcg PO DAILY 04/23/22 calcium carbonate 600 mg calcium (1,500 mg) tablet 600 mg PO BID 04/23/22 citalopram 20 mg tablet 20 mg PO DAILY 04/23/22 insulin lispro 100 unit/mL subcutaneous pen 0 unit subcut TID 04/23/22 magnesium hydroxide 400 mg/5 mL oral suspension (Milk of Magnesia) 400 mg PO DAILY PRN Constipation 04/23/22 melatonin 1 mg tablet 1 mg PO QHS 04/23/22 prednisone 10 mg tablet 10 mg PO DAILY 04/23/22 levofloxacin 500 mg tablet 500 mg PO DAILY #5 tabs 04/26/22 pantoprazole 40 mg tablet,delayed release 40 mg PO BID #60 tabs 04/26/22 Hospital Course Operations None Procedures EGD Summary of Care Provided Minutes Spent on Discharge: 45 Hospital Course: EBONIE WOLF, is a 72 F with a PMH as outlined who presents via the ED with a complaint of abnormal labs and generalized weakness.? Patient tells me that she came in because her legs were swollen.? Per the ED doctor, she had outpatient labs drawn today which showed hemoglobin of 6.4.? Her hemoglobin 2 days ago was 7.? Patient has a history of GI bleed due to angiodysplastic lesions in the last in the hospital in February 2022 when she had an EGD and these were treated with heater probe's.? Patient denies any dark stools or any hematemesis.? She does not remember she had these outpatient labs.? She denies any fever, chills, nausea vomiting abdominal pain or diarrhea.? Review of systems otherwise negative. Vitals in the ED were blood pressure of 137/62, pulse rate of 62, respiratory rate of 14 and she was saturating at 100% on room air.? Labs done this morning showed hemoglobin of 6.4 with WBC of 15.8 and platelets of 307.? Chemistry shows sodium of 125 potassium of 4.6 and BUN of 127 as well as creatinine of 2.59.? Urinalysis showed 3+ yeast and 500 leukocyte esterase but no bacteria.? INR is 1.? Stool for occult blood was positive.? She was admitted to be managed for acute on chronic anemia due to GI bleed. She was started on pantoprazole drip. GI was consulted. She was transfused with a unit of PRBCs. She had EGD which showed evidence of gastritis, but no active bleeding. She couldnt tolerate the prep for colonoscopy, and so didnt have a colonoscopy done. Hospital course was complicated by hematuria and urology was consulted. Urinalysis showed evidence of UTI which was thought to be the source of the hematuria. She had bladder irrigation done and hematuria cleared up. She had a CT of the abdomen and pelvis done to evaluate for kidney stones and this was negative for kidney stones. Urine cultures grew pseudomonas; she was started on IV zosyn. She remained stable and hemoglobin remained stable. She improved clinically and was discharged back to her [facility] facility on 04/26/2022. She is to follow- up with her primary care doctor, gastroenterology and urology within 1 to 2 weeks. Patient was seen and examined prior to discharge. She had no active complaints. Patient informed me that she was going to be discharged home where she lives with her daughter. However it turns out the [facility] Would be discharged back today. Review of systems otherwise negative. Labs and vitals reviewed. Home medication reviewed and reconciled. Physical Exam Const alert, oriented x3 and no apparent distress General Appearance: cooperative, comfortable and well kempt Orientation / Consciousness: awake Exam Limitations: no limitations HEENT normocephalic, head/scalp atraumatic, hearing grossly normal bilaterally and mo ist oral mucous membranes Mouth: oral and palatal mucosa normal Eyes PERRL, EOMs intact bilaterally and conjunctivae normal Neck no lymphadenopathy and supple Resp normal respiratory effort, no retractions, no use of accessory muscles and clear to auscultation bilaterally Cardio regular rate, regular rhythm, S1 normal heart sound, S2 normal heart sound and no murmurs GI normal to inspection, nondistended, normoactive bowel sounds, soft to palpation, non-tender and non-distended GI Narrative: obese abdomen Extremity Extremity Narrative: severe edema of LUE, which she says is chronic. LLE wrapped in bandage Neuro oriented x3, CN's II-XII intact bilaterally and moves all extremities Sensorium / Orientation: awake and alert Motor Exam: strength 5/5 throughout Psych affect normal Weight / BMI Weight Weight: 247 lb 11.206 oz Body Mass Index (BMI) 45.3 ABG / Lab / Microbiology Data Result Diagrams: 04/26/22 06:10 04/26/22 06:10 Laboratory: Laboratory Results - last 24 hr 04/25/22 16:28: POC Glucose 94 04/25/22 21:06: POC Glucose 132 H 04/26/22 06:10: WBC 12.9 H, RBC 2.56 L, Hgb 7.5 L, Hct 22.7 L, MCV 88.7, MCH 29.3, MCHC 33.0, RDW Std Deviation 48.3 H, RDW Coeff of Jenna 15.0 H, Plt Count 282, MPV 9.4, Immature Gran % (Auto) 2.500 H, Neut % (Auto) 85.3 H, Lymph % (Auto) 7.2 L, [place] % (Auto) 4.6, Eos % (Auto) 0.2, Baso % (Auto) 0.2, Absolute Neuts (auto) 11.0 H, Absolute Lymphs (auto) 0.93, Nucleated RBC % 0 04/26/22 06:10: Sodium 130 L, Potassium 4.0, Chloride 97 L, Carbon Dioxide 24.0, Anion Gap 9, BUN 119 H*, Creatinine 2.27 H, Estim Creat Clear Calc 17.72, Est GFR (MDRD) Af Amer 27 L, Est GFR (MDRD) Non-Af 23 L, BUN/Creatinine Ratio 52.4 H , Glucose 98, Calcium 7.9 L 04/26/22 06:25: POC Glucose 101 04/26/22 11:11: POC Glucose 101 Microbiology: Microbiology 04/24/22 12:00 Urine, Catheterized Urine Culture - Final Pseudomonas aeroginosa Yeast, not Izzy albicans 04/23/22 Unknown Urine Catheter - Ryan Urine Culture - Final Pseudomonas aeroginosa Yeast, not Izzy albicans 04/23/22 11:25 Stool Stool Occult Blood (YELENA) - Final Occult Blood Positive 04/23/22 10:10 Nasal Secretion SARS-CoV-2 & FLU Antigen (Rapid) - Final D/C Instructions Discharge Diet: Renal Diet Discharge Activity: Return to Normal Activity Call your doctor if you observe: Fever of 101 or Higher, Shortness of breath, Dizziness, Swelling in the ankles and Chest pain Meaningful Use Info Meaningful Use Diagnoses (Choose all that apply): None applicable Discharge Plan Admission Admit Date/Time: 04/23/22 12:26 Primary Reason for Your Visit: acute on chronic anemia, Gi bleed, hematuria, UTI Attending Provider: Dalia Zhao Primary Care Provider: Elia Ceja Chi Consulting Providers: Heather Irwin Instructions Patient Instructions: Anemia, Upper GI Endoscopy, What is Hematuria?, Hematuria: Possible Causes, ED Upper GI Bleeding (Stable), ED CYSTITIS Female Adult Discharge Orders/Prescriptions Prescriptions: New levofloxacin 500 mg tablet 500 mg PO DAILY Qty: 5 0RF pantoprazole 40 mg tablet,delayed release (DR/EC) 40 mg PO BID Qty: 60 1RF Continued levothyroxine 125 mcg tablet 125 mcg PO DAILY Label Comments: take 1 tablet by mouth once daily furosemide 40 mg tablet 40 mg PO DAILY amlodipine 10 mg Tablet 10 mg PO DAILY metoprolol tartrate 25 mg Tablet 50 mg PO BID aspirin 81 mg Capsule 81 mg PO DAILY pantoprazole 20 MG tablet,delayed release (DR/EC) 40 mg PO DAILY atorvastatin 80 MG tablet 80 mg PO QHS polyethylene glycol 3350 17 GM powder in packet 17 g PO DAILY clopidogrel 75 MG tablet 75 mg PO DAILY acetaminophen 500 mg Tablet 1,000 mg PO Q6H PRN PRN (Reason: Pain Score 1-10) Qty: 0 0RF bisacodyl 5 mg Tablet,Delayed Release (Dr/Ec) 10 mg PO DAILY PRN (Reason: Constipation) Qty: 0 0RF oxycodone 5 mg Tablet 5 mg PO Q4H PRN PRN (Reason: Pain Score 6-10) 3 Days Qty: 18 0RF nystatin [Nyamyc] 100,000 unit/gram powder 1 applic topical BID Protocol: *Topical Application Instructions APPLICATION INSTRUCTIONS: groin/abdominal folds insulin glargine [Lantus Solostar U-100 Insulin] 100 unit/mL (3 mL) Insulin Pen 35 unit SUBCUT QPM ferrous sulfate [Iron (ferrous sulfate)] 325 mg (65 mg iron) Tablet 325 mg PO TID prednisone 10 mg Tablet 10 mg PO DAILY calcium carbonate 600 mg calcium (1,500 mg) Tablet 600 mg PO BID citalopram 20 mg Tablet 20 mg PO DAILY magnesium hydroxide [Milk of Magnesia] 400 mg/5 mL Suspension 400 mg PO DAILY PRN (Reason: Constipation) calcitriol 0.25 mcg Capsule 0.25 mcg PO DAILY insulin lispro 100 unit/mL Insulin Pen 0 unit SUBCUT TID Label Comments: sliding scale BS 0-200- 0 units 201-250- 2 units 251-300- 4 units 301-350- 6 units greater than 350- 8 units melatonin 1 mg Tablet 1 mg PO QHS Discontinued doxycycline hyclate 50 mg Tablet 50 mg PO DAILY Referrals / Follow Up: Elia Ceja Chi, MD [Primary Care Provider] - Disposition Disposition (needs filled in before D/C Order can be placed): [facility] Charges/Coding Visit Charges Inpatient E&M: 32368 Disch Hosp
--- NOTE | 2022-04-26 14:41 | PCM.TXEXTCAR ---
Diet 04/24/22 17:00 Diet: Clear Liquid Is pt able to select menu?: Yes Routine Orders/Code Status Enema Type: Fleetz Enema Frequency: Daily PRN Suppository Type: Dulcolax 10mg Suppository Frequency: Daily PRN O2 Frequency: PRN Keep PO Greater than or Equal to (%): 90 Wound(s) LT ARM: Wound Type: Skin Tear left anterior ankle: Wound Type: small scabbed area Dressing Change: Dry Sterile Dressing left lateral lower leg: Wound Type: cluster of nonhealing wounds Dressing Change: AntiMicrobial (Aquacel AG, etc) left heel: Wound Type: Pressure Injury Dressing Change: Mepilex Therapies Weight Bearing: Weight bearing as tolerated Physical Therapy: Eval and Treat Occupational Therapy: Eval and Treat Problem/Diagnosis (1) Upper gastrointestinal bleeding: Status: Acute (2) Anemia: Status: Acute Allergies/Procedures Done in Hospital Allergies baclofen Adverse Reaction (Verified 04/22/22 14:12) Other confusion Procedures: EGD Type of Care/Length of Stay Estimated LOS: Convalescent Care Less Than 30 days Type of Care Needed: Skilled Rehab Potential: Fair Prognosis: Fair Additional Orders/Day of Discharge Day of Discharge: 04/26/22 Dietary and Speech Recommendations Dietitian Recommendations/Changes: as medically indicated, recommend cardiac, 1600 calorie controlled/consistent CHO diet; will consider Vlad BID for wounds pending wound child psychologist Discharge Plan Admission Admit Date/Time: 04/23/22 12:26 Primary Reason for Your Visit: acute on chronic anemia, Gi bleed, hematuria, UTI Attending Provider: Dalia Zhao Primary Care Provider: Elia Ceja Chi Consulting Providers: Heather Irwin Instructions Patient Instructions: Anemia, Upper GI Endoscopy, What is Hematuria?, Hematuria: Possible Causes, ED Upper GI Bleeding (Stable), ED CYSTITIS Female Adult Discharge Orders/Prescriptions Prescriptions: New levofloxacin 500 mg tablet 500 mg PO DAILY Qty: 5 0RF pantoprazole 40 mg tablet,delayed release (DR/EC) 40 mg PO BID Qty: 60 1RF Continued levothyroxine 125 mcg tablet 125 mcg PO DAILY Label Comments: take 1 tablet by mouth once daily furosemide 40 mg tablet 40 mg PO DAILY amlodipine 10 mg Tablet 10 mg PO DAILY metoprolol tartrate 25 mg Tablet 50 mg PO BID aspirin 81 mg Capsule 81 mg PO DAILY pantoprazole 20 MG tablet,delayed release (DR/EC) 40 mg PO DAILY atorvastatin 80 MG tablet 80 mg PO QHS polyethylene glycol 3350 17 GM powder in packet 17 g PO DAILY clopidogrel 75 MG tablet 75 mg PO DAILY acetaminophen 500 mg Tablet 1,000 mg PO Q6H PRN PRN (Reason: Pain Score 1-10) Qty: 0 0RF bisacodyl 5 mg Tablet,Delayed Release (Dr/Ec) 10 mg PO DAILY PRN (Reason: Constipation) Qty: 0 0RF oxycodone 5 mg Tablet 5 mg PO Q4H PRN PRN (Reason: Pain Score 6-10) 3 Days Qty: 18 0RF nystatin [Nyamyc] 100,000 unit/gram powder 1 applic topical BID Protocol: *Topical Application Instructions APPLICATION INSTRUCTIONS: groin/abdominal folds insulin glargine [Lantus Solostar U-100 Insulin] 100 unit/mL (3 mL) Insulin Pen 35 unit SUBCUT QPM ferrous sulfate [Iron (ferrous sulfate)] 325 mg (65 mg iron) Tablet 325 mg PO TID prednisone 10 mg Tablet 10 mg PO DAILY calcium carbonate 600 mg calcium (1,500 mg) Tablet 600 mg PO BID citalopram 20 mg Tablet 20 mg PO DAILY magnesium hydroxide [Milk of Magnesia] 400 mg/5 mL Suspension 400 mg PO DAILY PRN (Reason: Constipation) calcitriol 0.25 mcg Capsule 0.25 mcg PO DAILY insulin lispro 100 unit/mL Insulin Pen 0 unit SUBCUT TID Label Comments: sliding scale BS 0-200- 0 units 201-250- 2 units 251-300- 4 units 301-350- 6 units greater than 350- 8 units melatonin 1 mg Tablet 1 mg PO QHS Discontinued doxycycline hyclate 50 mg Tablet 50 mg PO DAILY Referrals / Follow Up: Elia Ceja Chi, MD [Primary Care Provider] - Disposition Disposition (needs filled in before D/C Order can be placed): Residential Facility
--- NOTE | 2022-04-26 15:26 | NURSING ---
Report called to [facility].
== END 2022-04-26 15:49 | DRG 378 ==
LOC: ED 12:41 → PCU 12:54
PROVIDERS: Anesthesiology; Internal Medicine Gastroenterology; Admitting Provider Student in an Organized Health Care Education/Training Program; Emergency Provider Emergency Medicine; PCP Family Medicine Geriatric Medicine; Visit Provider Student in an Organized Health Care Education/Training Program
PROC: 0DJD8ZZ Inspection of Lower Intestinal Tract, Via Natural or Artificial Opening Endoscopic (ICD-10-PCS; CPT 45378; principal; 2022-04-24 11:25)
DX: K29.71 Gastritis, unspecified, with bleeding (principal); I13.0 Hypertensive heart and chronic kidney disease with heart failure and stage 1 through stage 4 chronic kidney disease, or unspecified chronic kidney disease; E87.1 Hypo-osmolality and hyponatremia; L97.923 Non-pressure chronic ulcer of unspecified part of left lower leg with necrosis of muscle; I50.32 Chronic diastolic (congestive) heart failure; Z68.42 Body mass index [BMI] 45.0-49.9, adult; N39.0 Urinary tract infection, site not specified; C73 Malignant neoplasm of thyroid gland; E11.22 Type 2 diabetes mellitus with diabetic chronic kidney disease; E11.51 Type 2 diabetes mellitus with diabetic peripheral angiopathy without gangrene; E11.622 Type 2 diabetes mellitus with other skin ulcer; Z79.4 Long term (current) use of insulin; E66.01 Morbid (severe) obesity due to excess calories; N18.31 Chronic kidney disease, stage 3a; D50.0 Iron deficiency anemia secondary to blood loss (chronic); E03.9 Hypothyroidism, unspecified; I25.10 Atherosclerotic heart disease of native coronary artery without angina pectoris; E78.5 Hyperlipidemia, unspecified; Q27.33 Arteriovenous malformation of digestive system vessel; B96.5 Pseudomonas (aeruginosa) (mallei) (pseudomallei) as the cause of diseases classified elsewhere; Z79.02 Long term (current) use of antithrombotics/antiplatelets; Z66 Do not resuscitate; F32.A Depression, unspecified; Z51.5 Encounter for palliative care; Z95.1 Presence of aortocoronary bypass graft; R31.0 Gross hematuria; N20.0 Calculus of kidney
CPT/HCPCS: 11042; 36415; 71045; 74176; 80048; 81001; 82274; 82962; 84484; 85025; 85610; 85730; 86850; 86900; 86901; 86920; 86922; 87077; 87086; 87088; 87184; 87186; 87428; 87811; 93005; 97110; 97162; 97166; 97530; 97535; 97802; 99285; J7030; J7040; J7050; P9016; A4216; J2405; J3490

== ENCOUNTER → 2022-04-23 | Outpatient (REF) | payer MEDICARE, MEDICAID, SELFPAY ==
[2022-04-23 07:24] LABS: Absolute Lymphocyte Count 0.97 X10^3/uL (0.83-4.51); Absolute Neutrophil Count 13.5 X10^3/uL (2.0-7.7); Basophil# 0.02 X10^3/uL; Basophil% 0.1 % (0-1); Eosinophil# 0.03 X10^3/uL; Eosinophils% 0.2 % (0-5); Hematocrit 19.5 % (37-47); Hemoglobin 6.4 g/dL (12.0-15.0); Lymphocyte # 0.97 X10^3/ul (0.83-4.51); Lymphocyte % 6.2 % (19-41); Mean Corp Hgb Conc 32.8 g/dL (32-36); Mean Corpuscular Hgb 29.9 pg (27.0-32.0); Mean Corpuscular Volume 91.1 fL (81-99); Mean Platelet Vol. 9.6 fl (6.2-12.0); Monocyte% 3.2 % (0-10); NRBC Flagged by Analyzer 0.2 % (0-5); Neutrophil # 13.46 X10^3/uL (2.7-7.7); Neutrophil % 85.4 % (47-70); Platelet Count 327 K/mm3 (150-450); RBC Distribution Width CV 13.7 % (11.6-14.6); RBC Distribution Width SD 45.7 fl (35.1-43.9); Red Blood Count 2.14 M/mm3 (4.2-5.4); White Blood Count 15.8 K/mm3 (4.4-11.0)
[2022-04-23 07:44] LABS: Anion Gap 10 (5-15); BUN 127 mg/dL (7-18); Calcium,Total 7.8 mg/dL (8.5-10.1); Chloride 92 mmol/L (98-107); Creatinine, Serum 2.59 mg/dL (0.55-1.02); EST Glomerular Filtration Rate 19 mL/min (>60); Est Glom Filt Rate - Afr Amer 23 mL/min (>60); Glucose 219 mg/dL (74-106); Potassium 4.6 mmol/L (3.5-5.1); Sodium Level 125 mmol/L (136-145)
== END | disposition home or self-care (01) ==
LOC: OLS.WHLEAS 05:00
PROVIDERS: PCP Family Medicine Geriatric Medicine; Visit Provider Family Medicine
DX: I69.354 Hemiplegia and hemiparesis following cerebral infarction affecting left non-dominant side (principal); E11.628 Type 2 diabetes mellitus with other skin complications; E11.42 Type 2 diabetes mellitus with diabetic polyneuropathy
CPT/HCPCS: 36415; 80048; 85025

== ENCOUNTER → 2022-04-28 | Outpatient (REF) | payer MEDICARE, MEDICAID, SELFPAY ==
[2022-04-28 08:11] LABS: Absolute Lymphocyte Count 0.86 X10^3/uL (0.83-4.51); Basophil# 0.01 X10^3/uL; Basophil% 0.1 % (0-1); Eosinophil# 0.06 X10^3/uL; Eosinophils% 0.6 % (0-5); Hematocrit 23.6 % (37-47); Hemoglobin 7.8 g/dL (12.0-15.0); Lymphocyte # 0.86 X10^3/ul (0.83-4.51); Lymphocyte % 7.9 % (19-41); Mean Corp Hgb Conc 33.1 g/dL (32-36); Mean Corpuscular Hgb 29.7 pg (27.0-32.0); Mean Corpuscular Volume 89.7 fL (81-99); Mean Platelet Vol. 9.7 fl (6.2-12.0); Monocyte# 0.76 X10^3/uL; NRBC Flagged by Analyzer 0 % (0-5); Neutrophil # 9.01 X10^3/uL (2.7-7.7); Neutrophil % 83.2 % (47-70); Platelet Count 269 K/mm3 (150-450); RBC Distribution Width CV 14.9 % (11.6-14.6); RBC Distribution Width SD 49.1 fl (35.1-43.9); Red Blood Count 2.63 M/mm3 (4.2-5.4); White Blood Count 10.8 K/mm3 (4.4-11.0)
[2022-04-28 08:37] LABS: Anion Gap 12 (5-15); BUN 113 mg/dL (7-18); BUN/Creat Ratio 48.5 RATIO (10-20); Calcium,Total 8.1 mg/dL (8.5-10.1); Chloride 99 mmol/L (98-107); Creatinine, Serum 2.33 mg/dL (0.55-1.02); EST Glomerular Filtration Rate 22 mL/min (>60); Est Glom Filt Rate - Afr Amer 26 mL/min (>60); Glucose 81 mg/dL (74-106); Potassium 3.6 mmol/L (3.5-5.1); Sodium Level 135 mmol/L (136-145)
== END | disposition home or self-care (01) ==
LOC: OLS.WHLEAS 05:00
PROVIDERS: PCP Family Medicine Geriatric Medicine; Visit Provider Family Medicine
DX: I69.354 Hemiplegia and hemiparesis following cerebral infarction affecting left non-dominant side (principal); E11.628 Type 2 diabetes mellitus with other skin complications; E11.42 Type 2 diabetes mellitus with diabetic polyneuropathy; E11.22 Type 2 diabetes mellitus with diabetic chronic kidney disease; N18.30 Chronic kidney disease, stage 3 unspecified
CPT/HCPCS: 36415; 80048; 85025

== ENCOUNTER → 2022-04-30 | Outpatient (CLI) | payer MEDICARE, MEDICAID, SELFPAY ==
--- NOTE | 2022-04-30 09:58 | ECHOCS_ITS ---
Reason For Study: CHF Procedure This was a 2D Doppler, Color Flow transthoracic echocardiogram. The study was technically difficult. Contrast injection was performed. Exam performed in department. Left Ventricle Normal LV size. Left ventricular systolic function is normal. The estimated ejection fraction is 60 %. No regional wall motion abnormalities noted. Right Ventricle Normal RV size. Normal systolic function. Atria The left atrium is mildly enlarged. Normal right atrium. Probable chiari network. No doppler evidence for ASD. Mitral Valve There is mild mitral annular calcification. Extension of the mitral annular calcification onto the base of the posterior mitral valve leaflet. Mild (1+) mitral valve insufficiency. Tricuspid Valve Normal tricuspid valve. Trivial tricuspid valve insufficiency. Right ventricular systolic pressure estimated to be 43 mmHg. Aortic Valve Trisinus/trileaflet aortic valve. Normal aortic valve. Mild-Moderate (1-2+) aortic valve insufficiency. Pulmonic Valve The pulmonic valve is not well visualized. Mild (1+) pulmonic valve insufficiency. Great Vessels Normal sized aortic root. Pericardium/Pleural No pericardial effusion. Medication 22 gauge I.V. with prn adaptor inserted into right arm. Diluted definity 2ml given slow IV push to enhance endocardial definition. MMode/2D Measurements & Calculations LVIDd: 5.0 cm IVSd: 0.92 cm Ao root diam: 3.2 cm LVIDs: 3.2 cm LVPWd: 1.0 cm RVDd: 4.0 cm FS: 35.7 % LAV(MOD-bp): 68.1 ml LVAd ap4: 33.7 cm2 SV(MOD-sp4): 72.4 ml LAV(MOD-bp) Indexed: 34.5 ml/m2 LVLd ap4: 8.0 cm LAV(MOD-sp2): 64.3 ml EDV(MOD-sp4): 114.0 ml LAV(MOD-sp4): 64.8 ml EDV(sp4-el): 120.2 ml LVAs ap4: 18.3 cm2 LVLs ap4: 6.6 cm ESV(MOD-sp4): 41.6 ml ESV(sp4-el): 42.9 ml EF(MOD-sp4): 63.5 % EF(sp4-el): 64.3 % SV(sp4-el): 77.3 ml LA A4 area: 21.8 cm2 LA dimension(2D): 3.9 cm RA A4 area: 19.5 cm2 Time Measurements MV dec time: 0.32 sec Doppler Measurements & Calculations MV E max juan antonio: 137.2 cm/sec Lat Peak E' Juan Antonio: 7.6 cm/sec Med Peak E' Juan Antonio: 5.1 cm/sec MV A max juan antonio: 123.7 cm/sec E/E' lat: 18.0 E/E' med: 26.9 MV E/A: 1.1 Ao V2 max: 145.8 cm/sec AI max juan antonio: 382.4 cm/sec LV V1 max: 93.7 cm/sec Ao max P.5 mmHg AI max P.5 mmHg LV V1 max P.5 mmHg AI dec slope: 178.9 cm/sec2 AI P1/2t: 626.2 msec PA V2 max: 113.6 cm/sec PI end-d juan antonio: 121.6 cm/sec TR max juan antonio: 314.3 cm/sec TR max P.5 mmHg ECHO/Echo Complete W/ Contrast Interpretation Summary The study was technically difficult. Contrast injection was performed. Left ventricular systolic function is normal. The estimated ejection fraction is 60 %. The left atrium is mildly enlarged. Probable chiari network. There is mild mitral annular calcification. Extension of the mitral annular calcification onto the base of the posterior mi tral valve leaflet. Mild (1+) mitral valve insufficiency. Trivial tricuspid valve insufficiency. Mild-Moderate (1-2+) aortic valve insufficiency. Mild (1+) pulmonic valve insufficiency. Right ventricular systolic pressure estimated to be 43 mmHg c/w pulmonary hyper tension. Transmitral diastolic flow velocities suggest diastolic dysfunction (pseudonorm al pattern). Ordering Physician: Jonh Solis Referring Physician: ANGLEITA MICHAEL Performed By: Marilynn Horne RDCS
== END | disposition home or self-care (01) ==
PROVIDERS: PCP Family Medicine Geriatric Medicine; Referring Provider Family Medicine; Visit Provider Family Medicine
DX: I50.9 Heart failure, unspecified (principal); I34.0 Nonrheumatic mitral (valve) insufficiency
CPT/HCPCS: 93306; Q9957; A4216; C8929

== ENCOUNTER → 2022-05-02 | Outpatient (REF) | payer MEDICARE, MEDICAID, SELFPAY ==
[2022-05-02 06:49] LABS: 24 Hour Urine Protein 1572.8 mg/24HR (<150 MG/24HR); 24HR. UA Prot. Total Volume 1600 mL; 24HR. Urine Creatinine 0.33 g/24 HR (0.70-1.90); Urine Protein (24 Hour) 98.3 mg/dL (<11.9)
== END | disposition home or self-care (01) ==
LOC: OLS.WHLEAS 03:00
PROVIDERS: PCP Family Medicine Geriatric Medicine; Referring Provider Family Medicine; Visit Provider Family Medicine
DX: E11.22 Type 2 diabetes mellitus with diabetic chronic kidney disease (principal); I69.354 Hemiplegia and hemiparesis following cerebral infarction affecting left non-dominant side; E11.628 Type 2 diabetes mellitus with other skin complications; E11.42 Type 2 diabetes mellitus with diabetic polyneuropathy; N18.30 Chronic kidney disease, stage 3 unspecified
CPT/HCPCS: 82570; 84156

== ENCOUNTER → 2022-05-05 | Outpatient (REF) | payer MEDICARE, MEDICAID, SELFPAY ==
[2022-05-05 09:04] LABS: Absolute Lymphocyte Count 0.91 X10^3/uL (0.83-4.51); Absolute Neutrophil Count 5.8 X10^3/uL (2.0-7.7); Basophil# 0.02 X10^3/uL; Basophil% 0.3 % (0-1); Eosinophil# 0.11 X10^3/uL; Eosinophils% 1.5 % (0-5); Hematocrit 23.2 % (37-47); Hemoglobin 7.5 g/dL (12.0-15.0); Lymphocyte # 0.91 X10^3/ul (0.83-4.51); Mean Corp Hgb Conc 32.3 g/dL (32-36); Mean Corpuscular Hgb 29.8 pg (27.0-32.0); Mean Corpuscular Volume 92.1 fL (81-99); Mean Platelet Vol. 10.2 fl (6.2-12.0); Monocyte# 0.73 X10^3/uL; Monocyte% 9.6 % (0-10); NRBC Flagged by Analyzer 0 % (0-5); Neutrophil # 5.76 X10^3/uL (2.7-7.7); Neutrophil % 76.1 % (47-70); Platelet Count 188 K/mm3 (150-450); RBC Distribution Width CV 15.4 % (11.6-14.6); RBC Distribution Width SD 51.5 fl (35.1-43.9); Red Blood Count 2.52 M/mm3 (4.2-5.4); White Blood Count 7.6 K/mm3 (4.4-11.0)
[2022-05-05 09:11] LABS: Anion Gap 9 (5-15); BUN 100 mg/dL (7-18); BUN/Creat Ratio 42.6 RATIO (10-20); Calcium,Total 7.8 mg/dL (8.5-10.1); Chloride 101 mmol/L (98-107); Creatinine, Serum 2.35 mg/dL (0.55-1.02); EST Glomerular Filtration Rate 22 mL/min (>60); Est Glom Filt Rate - Afr Amer 26 mL/min (>60); Glucose 149 mg/dL (74-106); Potassium 3.6 mmol/L (3.5-5.1); Sodium Level 136 mmol/L (136-145)
== END | disposition home or self-care (01) ==
LOC: OLS.WHLEAS 05:00
PROVIDERS: PCP Family Medicine Geriatric Medicine; Referring Provider Family Medicine; Visit Provider Family Medicine
DX: E11.22 Type 2 diabetes mellitus with diabetic chronic kidney disease (principal); I69.354 Hemiplegia and hemiparesis following cerebral infarction affecting left non-dominant side; E11.628 Type 2 diabetes mellitus with other skin complications; E11.42 Type 2 diabetes mellitus with diabetic polyneuropathy; N18.6 End stage renal disease; D50.9 Iron deficiency anemia, unspecified
CPT/HCPCS: 36415; 80048; 85025

== ENCOUNTER → 2022-05-06 16:00 | Outpatient (REF) | payer MEDICARE, MEDICAID, SELFPAY ==
[2022-05-06 16:52] LABS: Ferritin 230 ng/mL (8-252); Iron 44 ug/dL (50-170); Iron Binding Capacity,Total 184 ug/dL (250-450); PERCENT IRON SATURATION 23.9 % (15.0-55.0)
[2022-05-07 08:32] LABS: Hepatitis B Surface Antibody Non-Reactive; Hepatitis B Surface Antigen Non-Reactive (Nonreactive)
== END ==
LOC: OLS.WHLEAS 16:00
PROVIDERS: Family Medicine
DX: N18.6 End stage renal disease (principal); D50.9 Iron deficiency anemia, unspecified
CPT/HCPCS: 36415; 82728; 83540; 83550; 86706; 87340

== ENCOUNTER → 2022-05-07 | Outpatient (REF) | payer MEDICARE, MEDICAID, SELFPAY ==
[2022-05-07 09:28] LABS: Albumin, Serum 1.8 g/dL (3.2-5.0); BUN 90 mg/dL (7-18); BUN/Creat Ratio 38.6 RATIO (10-20); Calcium,Total 7.7 mg/dL (8.5-10.1); Chloride 104 mmol/L (98-107); Creatinine, Serum 2.33 mg/dL (0.55-1.02); EST Glomerular Filtration Rate 22 mL/min (>60); Est Glom Filt Rate - Afr Amer 26 mL/min (>60); Glucose 133 mg/dL (74-106); Phosphorus 2.7 mg/dL (2.5-4.9); Potassium 3.8 mmol/L (3.5-5.1); Sodium Level 138 mmol/L (136-145)
== END | disposition home or self-care (01) ==
LOC: OLS.WHLEAS 05:00
PROVIDERS: PCP Family Medicine Geriatric Medicine; Visit Provider Family Medicine
DX: E11.22 Type 2 diabetes mellitus with diabetic chronic kidney disease (principal); I69.354 Hemiplegia and hemiparesis following cerebral infarction affecting left non-dominant side; E11.638 Type 2 diabetes mellitus with other oral complications; E11.42 Type 2 diabetes mellitus with diabetic polyneuropathy; N18.30 Chronic kidney disease, stage 3 unspecified
CPT/HCPCS: 36415; 80069

== ENCOUNTER 2022-05-12 13:03 | Outpatient (CLI) | payer MEDICARE, MEDICAID, SELFPAY ==
--- NOTE | 2022-05-12 13:07 | VDUE_ITS ---
Reason For Study: Swelling Left Proximal Left jugular vein is spontaneous, widely patent, phasic, with no intraluminal echogenicity noted. Left subclavian vein is spontaneous, widely patent, phasic, with no intraluminal echogenicity noted. Left Arm Left axillary vein is spontaneous, patent, phasic, competent, compressible and demonstrates augmentation. Left brachial vein is compressible. Left cephalic vein is compressible. Left basilic vein is compressible. Left Lower Arm Left radial vein is compressible. Left ulnar vein is compressible. Patient Safety Preliminary to Valerie. VL/Venous Duplex US, Unilateral Interpretation Summary No evidence for acute deep venous thrombosis[left] upper extremity with patent and compressible cephalic and basilic veins. Ordering Physician: Crispin Borrego Performed By: Carmella Baird RVT ?
== END 2022-05-12 23:59 | disposition home or self-care (01) ==
LOC: CVS 13:05
PROVIDERS: Referring Provider Surgery; Visit Provider Surgery
DX: M79.89 Other specified soft tissue disorders (principal); I69.354 Hemiplegia and hemiparesis following cerebral infarction affecting left non-dominant side; E11.628 Type 2 diabetes mellitus with other skin complications; E11.42 Type 2 diabetes mellitus with diabetic polyneuropathy; E11.22 Type 2 diabetes mellitus with diabetic chronic kidney disease; N18.30 Chronic kidney disease, stage 3 unspecified
CPT/HCPCS: 36415; 80048; 85025; 93971

== ENCOUNTER → 2022-05-12 | Outpatient (REF) | payer MEDICARE, MEDICAID, SELFPAY ==
[2022-05-12 09:12] LABS: Absolute Lymphocyte Count 1.09 X10^3/uL (0.83-4.51); Absolute Neutrophil Count 5.9 X10^3/uL (2.0-7.7); Basophil# 0.03 X10^3/uL; Basophil% 0.4 % (0-1); Eosinophils% 2.6 % (0-5); Hematocrit 23.5 % (37-47); Hemoglobin 7.5 g/dL (12.0-15.0); Lymphocyte # 1.09 X10^3/ul (0.83-4.51); Mean Corp Hgb Conc 31.9 g/dL (32-36); Mean Corpuscular Hgb 29.6 pg (27.0-32.0); Mean Corpuscular Volume 92.9 fL (81-99); Mean Platelet Vol. 9.8 fl (6.2-12.0); Monocyte# 0.58 X10^3/uL; Monocyte% 7.4 % (0-10); NRBC Flagged by Analyzer 0 % (0-5); Neutrophil # 5.87 X10^3/uL (2.7-7.7); Neutrophil % 75.2 % (47-70); Platelet Count 215 K/mm3 (150-450); RBC Distribution Width CV 15.9 % (11.6-14.6); RBC Distribution Width SD 54.3 fl (35.1-43.9); Red Blood Count 2.53 M/mm3 (4.2-5.4); White Blood Count 7.8 K/mm3 (4.4-11.0)
[2022-05-12 09:24] LABS: Anion Gap 7 (5-15); BUN 69 mg/dL (7-18); BUN/Creat Ratio 33.2 RATIO (10-20); Calcium,Total 7.9 mg/dL (8.5-10.1); Chloride 103 mmol/L (98-107); Creatinine, Serum 2.08 mg/dL (0.55-1.02); EST Glomerular Filtration Rate 25 mL/min (>60); Est Glom Filt Rate - Afr Amer 30 mL/min (>60); Glucose 119 mg/dL (74-106); Potassium 3.7 mmol/L (3.5-5.1); Sodium Level 139 mmol/L (136-145)
== END | disposition home or self-care (01) ==
LOC: OLS.WHLEAS 04:00
PROVIDERS: Referring Provider Family Medicine; Visit Provider Family Medicine
DX: E11.628 Type 2 diabetes mellitus with other skin complications (principal); I69.354 Hemiplegia and hemiparesis following cerebral infarction affecting left non-dominant side; E11.42 Type 2 diabetes mellitus with diabetic polyneuropathy; E11.22 Type 2 diabetes mellitus with diabetic chronic kidney disease; N18.30 Chronic kidney disease, stage 3 unspecified
CPT/HCPCS: 36415; 80048; 85025

== ENCOUNTER → 2022-05-19 | Outpatient (REF) | payer MEDICARE, MEDICAID, SELFPAY ==
[2022-05-19 09:32] LABS: Absolute Lymphocyte Count 1.08 X10^3/uL (0.83-4.51); Absolute Neutrophil Count 4.7 X10^3/uL (2.0-7.7); Basophil# 0.03 X10^3/uL; Basophil% 0.4 % (0-1); Eosinophil# 0.15 X10^3/uL; Eosinophils% 2.2 % (0-5); Hematocrit 25.2 % (37-47); Hemoglobin 8.1 g/dL (12.0-15.0); Lymphocyte # 1.08 X10^3/ul (0.83-4.51); Lymphocyte % 15.9 % (19-41); Mean Corp Hgb Conc 32.1 g/dL (32-36); Mean Corpuscular Volume 93.3 fL (81-99); Mean Platelet Vol. 9.8 fl (6.2-12.0); Monocyte# 0.75 X10^3/uL; Monocyte% 11.1 % (0-10); NRBC Flagged by Analyzer 0 % (0-5); Neutrophil # 4.73 X10^3/uL (2.7-7.7); Neutrophil % 69.8 % (47-70); Platelet Count 238 K/mm3 (150-450); RBC Distribution Width CV 15.4 % (11.6-14.6); RBC Distribution Width SD 53.1 fl (35.1-43.9); White Blood Count 6.8 K/mm3 (4.4-11.0)
[2022-05-19 09:37] LABS: Anion Gap 6 (5-15); BUN 66 mg/dL (7-18); BUN/Creat Ratio 31.1 RATIO (10-20); Calcium,Total 7.9 mg/dL (8.5-10.1); Chloride 100 mmol/L (98-107); Creatinine, Serum 2.12 mg/dL (0.55-1.02); EST Glomerular Filtration Rate 24 mL/min (>60); Est Glom Filt Rate - Afr Amer 29 mL/min (>60); Glucose 83 mg/dL (74-106); Potassium 3.7 mmol/L (3.5-5.1); Sodium Level 135 mmol/L (136-145)
== END | disposition home or self-care (01) ==
LOC: OLS.WHLEAS 07:35
PROVIDERS: Visit Provider Family Medicine
DX: I69.354 Hemiplegia and hemiparesis following cerebral infarction affecting left non-dominant side (principal); E11.628 Type 2 diabetes mellitus with other skin complications; E11.42 Type 2 diabetes mellitus with diabetic polyneuropathy; E11.22 Type 2 diabetes mellitus with diabetic chronic kidney disease; N18.30 Chronic kidney disease, stage 3 unspecified
CPT/HCPCS: 36415; 80048; 85025

== ENCOUNTER 2022-05-20 09:21 | Day surgery (SDC) | payer MEDICARE, MEDICAID, SELFPAY ==
[2022-05-20] VITALS (8 sets, daily range): BP systolic 139–156; BP diastolic 61–74; PULSE 54–57; RESP 14–16; TEMP 36.4; O2SAT 96–100; BMI 37.5
[2022-05-20] MEDS: 0.9% Normal Saline 1,000 ML 15 ML IV (10:18)
[2022-05-20 11:00] LABS: Bedside Glucose 83 mg/dL (74-106)
[2022-05-20] MEDS: Cefazolin 2 GM in 0.9% Normal Saline 100 ML IV (11:04)
--- NOTE | 2022-05-20 11:05 | HP.PCM_ITS ---
History and Physical Date of Admission: 05/20/22 Date of Service:? 05/08/22 MR#: [id number] Acct: [id number] Name:EBONIE KOTHARI Rep #: [id number] : 1950 ? ? Provider: Dr. Crispin Borrego MD Age/Sex:? 72/F ? ? Location: [facility] Status: Signed Intake Vital Signs ? 04/23/2215:14 05/08/2208:52 Height 5 ft 2 in 5 ft 2 in Weight: ? 210 lb BMI ? 38.4 BP ? 158/77 H Blood Pressure Location ? Rt brachial Position ? Sitting Respiration ? 16 Pulse ? 58 L Pulse Source ? Monitor Temp ? 97.7 F L Temp Source ? Temporal Pulse Oximetry (%) ? 95 Oxygen Delivery Method ? 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 Chief Complaint: consult for chest cath insertion Vibratory Pile Driver Required: No Accompanied by: Other Is patient in pain?: No Allergies baclofen Adverse Reaction (Verified 05/08/22 08:53) Other Medications amlodipine 10 mg tablet 10 mg PO DAILY BP 08/07/21 [History Confirmed 05/08/22] aspirin 81 mg capsule 81 mg PO DAILY Heart 08/07/21 [History Confirmed 05/08/22] metoprolol tartrate 25 mg tablet 50 mg PO BID BP 08/07/21 [History Confirmed 05/08/22] pantoprazole 20 mg tablet,delayed release 40 mg PO DAILY GERD 08/07/21 [History Confirmed 05/08/22] atorvastatin 80 mg tablet 80 mg PO QHS Cholesterol 08/12/21 [History Confirmed 05/08/22] clopidogrel 75 mg tablet 75 mg PO DAILY Antiplatelet 08/12/21 [History Confirmed 05/08/22] polyethylene glycol 3350 17 gram oral powder packet 17 g PO DAILY Constipation 08/12/21 [History Confirmed 05/08/22] acetaminophen 500 mg tablet 1,000 mg PO Q6H PRN PRN Pain Score 1-10 #0 tabs 08/29/21 [Rx Confirmed 05/08/22] bisacodyl 5 mg tablet,delayed release 10 mg PO DAILY PRN Constipation #0 tabs 08/29/21 [Rx Confirmed 05/08/22] oxycodone 5 mg tablet 5 mg PO Q4H PRN PRN Pain Score 6-10 3 days #18 tabs 08/29/21 [Rx Confirmed 05/08/22] ferrous sulfate 325 mg (65 mg iron) tablet (Iron (ferrous sulfate)) 325 mg PO TID supplement 02/21/22 [History Confirmed 05/08/22] insulin glargine 100 unit/mL (3 mL) subcutaneous pen (Lantus Solostar U-100 Insulin) 35 unit subcut QPM dm 02/21/22 [History Confirmed 05/08/22] nystatin 100,000 unit/gram topical powder (Nyamyc) 1 applic topical BID redness 02/21/22 [History Confirmed 05/08/22] furosemide 40 mg tablet 40 mg PO DAILY 04/22/22 [History Confirmed 05/08/22] levothyroxine 125 mcg tablet 125 mcg PO DAILY 04/22/22 [History Confirmed 05/08/22] calcitriol 0.25 mcg capsule 0.25 mcg PO DAILY 04/23/22 [History Confirmed 05/08/22] calcium carbonate 600 mg calcium (1,500 mg) tablet 600 mg PO BID 04/23/22 [History Confirmed 05/08/22] citalopram 20 mg tablet 20 mg PO DAILY 04/23/22 [History Confirmed 05/08/22] insulin lispro 100 unit/mL subcutaneous pen 0 unit subcut TID 04/23/22 [History Confirmed 05/08/22] magnesium hydroxide 400 mg/5 mL oral suspension (Milk of Magnesia) 400 mg PO DAILY PRN Constipation 04/23/22 [History Confirmed 05/08/22] melatonin 1 mg tablet 1 mg PO QHS 04/23/22 [History Confirmed 05/08/22] prednisone 10 mg tablet 10 mg PO DAILY 04/23/22 [History Confirmed 05/08/22] levofloxacin 500 mg tablet 500 mg PO DAILY #5 tabs 04/26/22 [Rx Confirmed 05/08/22] pantoprazole 40 mg tablet,delayed release 40 mg PO BID #60 tabs 04/26/22 [Rx Confirmed 05/08/22] PFSH Medical History?(Updated 05/08/22 @ 18:[address] Crispin Borrego MD) (HFpEF) heart failure with preserved ejection fraction Anemia Atherosclerosis of coronary artery of [place] heart without angina pectoris Cellulitis of left lower limb Chronic headaches Chronic kidney disease (CKD) Chronic ulcer of left foot with necrosis of muscle Current use of insulin Depression Diabetic foot infection Diabetic nephropathy Difficulty chewing Difficulty swallowing DM (diabetes mellitus), type 2, uncontrolled DVT (deep venous thrombosis) Dyspnea Essential hypertension History of non-ST elevation myocardial infarction (NSTEMI) (01/13/20) Irregular heartbeat Kidney calculi Left foot infection Malnutrition Myocardial infarction Paralysis Peripheral vascular disease Post-menopausal Renal disease Restless legs Sleep apnea Status post amputation of toe of left foot Stroke Thyroiditis Type 2 diabetes mellitus with diabetic foot infection Ulcer Ulcer of left foot due to type 2 diabetes mellitus Upper gastrointestinal bleeding Surgical History? H/O coronary artery bypass surgery History of heart artery stent S/P tubal ligation Status post arterial stent Status post coronary artery bypass graft Status post coronary artery stent placement Status post hysterectomy Status post transmetatarsal amputation of left foot Family History? Mother CVA (cerebral vascular accident)Other Diabetes Heart disease Social History? household members:? children housing:? [facility] Smoking Status:? Never smoker HPI HPI HPI: EBONIE WOLF, is a 72 F who presents to the office today for consideration of placement of tunneled hemodialysis catheter.? She presents with one of the aides from her nursing facility.? Unfortunately neither she nor her aide are very clear on much of her history.? She is not currently on hemodialysis, but she states Dr. Chandra plans to start dialysis either today?? Or next week?? She states that she still makes urine, but she frequently deals with fluid overload.? She is unsure if she has had a prior central line.? She is also unsure as to why her kidneys are not working well.? She confirms that she has no history of anesthesia difficulties and tolerated anesthesia well during procedure last yea r.? She confirms that she is left-handed, but this extremity movement is severely limited after a stroke.? She has some severe swelling from this site, but does not believe a work-up has been done as to why.? Lastly she confirms that she is on Plavix and aspirin for cardiac stents. ROS General General: Yes fatigue and weakness; No weight change, appetite, colon cancer or breast cancer HEENT HEENT: No difficulty swallowing, eye injury, eye surgery, swollen glands or hoarseness Endo Endocrine: Yes thyroid disease, diabetes mellitus and thyroid cancer; No Hair loss, heat intolerance or cold intolerance Additional Details: Chronic kidney disease stage 3 Skin Skin: Yes rash; No changing moles Additional Details: psoriasis Breast Breast: No left breast lump, right breast lump, nipple discharge, breast pain, abnormal mammogram, abnormal US or breast enlargement Musc Musculoskeletal: No back problems, arthritis, rheumatoid arthritis, gout or joint pain Cardio Cardiovascular: Yes heart disease and high blood pressure; No murmur, pacemaker, atrial fibrillation, heart attack, heart stent, palpitations, shortness of breat with exertion or chest pain Psych Psychiatric: Yes depression and anxiety; No hearing voices Resp Respiratory: No shortness of breath, Yes sleep apnea, No cough, No COPD, No asthma, No emphysema and No wheezing Gastro Gastrointestinal: No abdominal pain, No nausea or vomiting, No diarrhea, No constipation, No blood in stool, Yes acid reflux, No hemorrhoids, No ulcers, No gallbladder problem and No black,tarry stools [place] Hematologic: Yes blood thinners, No blood disorders, No bleeding, No anemia and No blood clots Additional Details: ASA and Plavix Neuro Neurologic: No system reviewed and no additional complaints, except as documented, No as per HPI, No abnormal gait, No abnormal hearing, No abnormal movements, No abnormal speech, No behavioral changes, No burning sensations, No confusion, No convulsions, No disequilibrium, No dizziness, No localized weakness, No frequent falls, No headache(s), No lack of coordination, No loss of vision, No memory loss, No numbness, No other visual disturbances, No radicular pain, No restless legs, No sensory deficit, No syncope, No tingling, No tremor(s), Yes weakness and No other Exam Const General: cooperative and no acute distress Orientation: alert Neck Other: No scars at the base of the neck to suggest prior CBC Chest Other: Scar present from prior CABG operation Cardio Heart Sounds: murmur systolic III/ Extrem Other: Severe swelling of left upper extremity with soft tissue edema extending through upper arm.? Radial pulse palpable. Assessment and Plan Assessment and Plan (1) Swelling of left extremity: ?Status:?Acute ?Comment: Patient with severe swelling of her left upper extremity which she states has been present for a while.? She is unable to give a timeframe.? She also is unable to comment whether a work-up has been done as to possible blood clots on this side.? She does not seem to be in pain, but her motor function is severely limited by prior stroke event.? Radial pulses clearly palpable. ?Plan: Obtain duplex study of left upper extremity to exclude DVT.? This also needs to be taken into account with planning patient's dialysis access as a catheter and the draining vein is likely to make this worse. (2) Chronic kidney disease (CKD): ?Status:?Chronic ?Comment: Patient with chronic kidney disease who continues to make urine.? Patient is not clear on the timeline until dialysis.? I would like to obtain a better understanding of this timeline to be sure patient would be better served with a fistula consult.? However, if patient's time to dialysis is imminent, will schedule for a tunneled hemodialysis catheter placement.? In Ms. Wolf's case this likely would be a right internal jugular tunneled hemodialysis catheter given her significant left upper extremity swelling.? However, I would not want to put her at risk central venous stenosis if patient is likely to obtain a fistula.? We will also seek clearance at this time for holding her antiplatelet therapy in anticipation of this potential procedure. ?Plan: ? Obtain clarification from nephrology regarding patient's initiation of hemodialysis ? Obtain clearance from cardiology regarding holding of patient's antiplatelet therapy ? ? ? Orders: I have re-examined the patient. There are no clinical changes since date of exam. Procedure reviewed with patient and patient's daughter who is in the room. I also reviewed with them that this catheter needs to be seen as a temporary access solution and have encouraged them to seek evaluation for fistula creation. Expressed understanding of this information and appreciation for the discussion. Proceed with tunneled hemodialysis catheter insertion under local MAC.
--- NOTE | 2022-05-20 12:17 | PCM.OPRPT ---
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 Preoperative antibiotics were completely administered. Sedation was begun per anesthesia and the patient's right neck was prepped and draped in usual sterile fashion after confirming patency of the right internal jugular vein with bedside ultrasound. Formal timeout was conducted to confirm both the patient and the procedure. Procedure was begun with ultrasound-guided access of the right internal jugular vein using a micropuncture access kit. Fluoroscopy confirmed appropriate position of the wire and the micro access sheath. At this point I made a measurement from the insertion site to the mid atrium of approximately 14 cm. Desiring some room for the patient's tunneling/cuff placement, elected to proceed with a 19 cm catheter. The 035 guidewire from the catheter kit was placed through the micro access sheath and again fluoroscopy was used to confirm this placement. The insertion site was then enlarged sharply and bluntly. Measuring back from the proximal insertion site on the catheter, we determined that the tunneling site would need to be 8 cm away from the insertion site. Therefore this was measured out on the patient's chest and a counterincision was made at this point after instilling local anesthetic. A gentle curve of the tunneling tract to the insertion site was also instilled with local anesthetic. Then the catheter was connected to the tunneling device and was tunneled to the insertion site. I again measured the distance to the mid atrium and pulled back additional catheter. Next the insertion site was serially dilated and the peel-away sheath was placed under fluoroscopy. The catheter was fed through the peel-away sheath and once the catheter was fully inserted another fluoroscopy image was obtained which showed the catheter termination several centimeters below the [place]. Functionally, the catheter was tested with aspiration and flush of injectable saline which it did with ease. The insertion site was then closed with a single interrupted 3-0 nylon stitch. Another 3-0 nylon stitch was used to close down the insertion site at the tunneling entrance with a modified [id number]. Lastly, the catheter was secured at the tiedown points on each port with a interrupted 3 oh -0 nylon. Now the catheter was locked with 2 mL heparinized saline (concentration 1000 units/mL) per package specification. A Biopatch was inserted around the catheter. A folded gauze was placed over the length of the catheter and this ensemble was taped in place with a 3000 drape. Patient was then allowed to emerge from sedation and was taken to PACU in stable condition. A chest x-ray was ordered in PACU for review of the catheter placement and to exclude pneumothorax. Complications None Admit VTE Documentation VTE Present on Admission: Yes VTE Mechan Device Prophylaxis: SCD's Procedures Cardiovascular CF Procedures [id number]: [id number] Insert tunneled cv cath
--- NOTE | 2022-05-20 12:31 | RAD_ITS ---
STUDY: X-RAY CHEST REASON FOR EXAM: Female, 72 years old. Status post line placement TECHNIQUE: Single AP portable view of the chest. COMPARISON: Comparison is made with prior examination dated 04/23/2022. FINDINGS: A right sided double lumen catheter has been placed with the tip at the junction of the superior vena cava and right atrium. Surgical clips are seen in the lower cervical region most likely secondary to prior thyroidectomy. The lungs are clear and expanded. There is no demonstrated pleural abnormality. Sternal cerclage wires and vascular clips are present from a prior sternotomy and coronary artery bypass graft procedure (CABG). Borderline cardiomegaly. Normal mediastinum and emma. Normal visualized pulmonary arteries. There is atherosclerotic calcification of the aortic arch with tortuosity. Normal visualized thoracic spine. Normal visualized ribs, clavicles, and shoulders. There is no demonstrated abnormality of the visualized soft tissue structures of the upper abdomen. RAD/CXR for Line Placement IMPRESSION: The tip of the right-sided double-lumen catheter is at the junction of the superior vena cava and right atrium. Borderline cardiomegaly. Electronically Signed: Donny Mariee MD at 12:47 EDT ,
--- NOTE | 2022-05-20 13:41 | DCINST_ITS ---
Discharge Instructions Diet Discharge Diet: No restrictions and Renal Diet Activity Discharge Activity: May Shower May shower in (days): 1 Additional Activity Instructions:: Limit the activity by the nearest upper extremity for 48 hours postop Dressing / Incision Call your doctor if your incision/area has: Increased Pain/ Swelling, Increased Redness, Foul Smelling Discharge and Swelling at the incision site Call your doctor if you observe: Fever of 101 or Higher Remove Dressing in: do not remove dressing (Dermabond (surgical glue) expected to dissolve spontaneously within 7 to 10 days postop using regular showering) Cleanse incision/area with: Soap & Water Follow Up Care Test Results: Test results from this visit will be discussed in further detail at your follow- up appointment, if applicable. Discharge Plan Admission Primary Reason for Your Visit: Placement of tunneled hemodialysis catheter Attending Provider: Crispin Borrego Primary Care Provider: Jonh Solis Instructions Patient Instructions: Caring for Your Central Vein Access Additional Instructions / Restrictions: Resume normal diet and activity. Dressing to be replaced per dialysis provider. Discharge Orders/Prescriptions Prescriptions: No Action levothyroxine 125 mcg tablet 125 mcg PO DAILY Label Comments: take 1 tablet by mouth once daily furosemide 40 mg tablet 40 mg PO DAILY amlodipine 10 mg Tablet 10 mg PO DAILY metoprolol tartrate 25 mg Tablet 50 mg PO BID aspirin 81 mg Capsule 81 mg PO DAILY atorvastatin 80 MG tablet 80 mg PO QHS polyethylene glycol 3350 17 GM powder in packet 17 g PO DAILY clopidogrel 75 MG tablet 75 mg PO DAILY nystatin [Nyamyc] 100,000 unit/gram powder 1 applic topical BID Protocol: *Topical Application Instructions APPLICATION INSTRUCTIONS: groin/abdominal folds ferrous sulfate [Iron (ferrous sulfate)] 325 mg (65 mg iron) Tablet 325 mg PO TID prednisone 10 mg Tablet 10 mg PO QODAY calcium carbonate 600 mg calcium (1,500 mg) Tablet 600 mg PO BID citalopram 20 mg Tablet 20 mg PO DAILY calcitriol 0.25 mcg Capsule 0.25 mcg PO DAILY insulin lispro 100 unit/mL Insulin Pen 0 unit SUBCUT TID Label Comments: sliding scale BS 0-200- 0 units 201-250- 2 units 251-300- 4 units 301-350- 6 units greater than 350- 8 units melatonin 1 mg Tablet 1 mg PO QHS levofloxacin 500 mg tablet 500 mg PO DAILY Qty: 5 0RF pantoprazole 40 mg tablet,delayed release (DR/EC) 40 mg PO BID Qty: 60 1RF doxycycline hyclate 50 mg capsule 50 cap PO 1200 Referrals / Follow Up: Jonh Solis MD [Primary Care Provider] - Disposition Disposition (needs filled in before D/C Order can be placed): Home, Self Care
== END 2022-05-20 14:04 | disposition home or self-care (01) ==
LOC: SDC 09:23 → AC 09:25
PROVIDERS: PCP Family Medicine; Visit Provider Surgery
PROC: (CPT 36558; principal; 2022-05-20 10:45)
DX: N18.9 Chronic kidney disease, unspecified (principal); Z89.422 Acquired absence of other left toe(s); E11.22 Type 2 diabetes mellitus with diabetic chronic kidney disease; I77.9 Disorder of arteries and arterioles, unspecified; Z79.4 Long term (current) use of insulin; M79.89 Other specified soft tissue disorders; I25.2 Old myocardial infarction; Z86.718 Personal history of other venous thrombosis and embolism; I25.10 Atherosclerotic heart disease of native coronary artery without angina pectoris; I12.9 Hypertensive chronic kidney disease with stage 1 through stage 4 chronic kidney disease, or unspecified chronic kidney disease; Z95.1 Presence of aortocoronary bypass graft; E78.5 Hyperlipidemia, unspecified; Z86.73 Personal history of transient ischemic attack (TIA), and cerebral infarction without residual deficits; E03.9 Hypothyroidism, unspecified
CPT/HCPCS: 36558; 71045; 77001; 82962; J7030; C1750; J2405

== ENCOUNTER → 2022-05-25 | Outpatient (REF) | payer MEDICARE, MEDICAID, SELFPAY ==
[2022-05-25 08:38] LABS: Cholesterol 122 mg/dL (200); High Density Lipoprotein 39 mg/dL; Triglycerides 109 mg/dL; Very Low Density Lipoprotein 22 mg/dL (5-40)
[2022-05-25 09:08] LABS: Hemoglobin A1c 5.4 % (3.8-5.6)
[2022-05-26 09:41] LABS: Anion Gap 5 (5-15); BUN 46 mg/dL (7-18); Calcium,Total 8.1 mg/dL (8.5-10.1); Chloride 102 mmol/L (98-107); EST Glomerular Filtration Rate 26 mL/min (>60); Est Glom Filt Rate - Afr Amer 32 mL/min (>60); Glucose 140 mg/dL (74-106); Potassium 4.3 mmol/L (3.5-5.1); Sodium Level 136 mmol/L (136-145)
[2022-05-26 10:00] LABS: Absolute Lymphocyte Count 1.38 X10^3/uL (0.83-4.51); Basophil# 0.04 X10^3/uL; Basophil% 0.5 % (0-1); Eosinophil# 0.18 X10^3/uL; Eosinophils% 2.4 % (0-5); Hematocrit 22.2 % (37-47); Hemoglobin 7.1 g/dL (12.0-15.0); Lymphocyte # 1.38 X10^3/ul (0.83-4.51); Lymphocyte % 18.8 % (19-41); Mean Corpuscular Hgb 30.2 pg (27.0-32.0); Mean Corpuscular Volume 94.5 fL (81-99); Mean Platelet Vol. 10.1 fl (6.2-12.0); Monocyte# 0.67 X10^3/uL; Monocyte% 9.1 % (0-10); NRBC Flagged by Analyzer 0 % (0-5); Platelet Count 212 K/mm3 (150-450); RBC Distribution Width CV 15.5 % (11.6-14.6); RBC Distribution Width SD 52.7 fl (35.1-43.9); Red Blood Count 2.35 M/mm3 (4.2-5.4); White Blood Count 7.4 K/mm3 (4.4-11.0)
== END | disposition home or self-care (01) ==
LOC: OLS.WHLEAS 05:00
PROVIDERS: PCP Family Medicine; Visit Provider Family Medicine
DX: I69.354 Hemiplegia and hemiparesis following cerebral infarction affecting left non-dominant side (principal); E11.628 Type 2 diabetes mellitus with other skin complications; E11.42 Type 2 diabetes mellitus with diabetic polyneuropathy
CPT/HCPCS: 36415; 80048; 80061; 83036; 85025

== ENCOUNTER → 2022-05-28 | Outpatient (REF) | payer MEDICARE, MEDICAID, SELFPAY ==
[2022-05-28 07:33] LABS: Albumin, Serum 2.1 g/dL (3.2-5.0); BUN 37 mg/dL (7-18); BUN/Creat Ratio 20.2 RATIO (10-20); Chloride 101 mmol/L (98-107); Creatinine, Serum 1.83 mg/dL (0.55-1.02); EST Glomerular Filtration Rate 29 mL/min (>60); Est Glom Filt Rate - Afr Amer 35 mL/min (>60); Glucose 103 mg/dL (74-106); Phosphorus 2.8 mg/dL (2.5-4.9); Potassium 4.1 mmol/L (3.5-5.1); Sodium Level 137 mmol/L (136-145)
== END | disposition home or self-care (01) ==
LOC: OLS.WHLEAS 05:00
PROVIDERS: PCP Family Medicine; Visit Provider Family Medicine
DX: I69.354 Hemiplegia and hemiparesis following cerebral infarction affecting left non-dominant side (principal); E11.628 Type 2 diabetes mellitus with other skin complications; E11.42 Type 2 diabetes mellitus with diabetic polyneuropathy; E11.22 Type 2 diabetes mellitus with diabetic chronic kidney disease; N18.30 Chronic kidney disease, stage 3 unspecified
CPT/HCPCS: 36415; 80069

== ENCOUNTER → 2022-06-02 | Outpatient (REF) | payer MEDICARE, MEDICAID, SELFPAY ==
[2022-06-02 11:03] LABS: Absolute Lymphocyte Count 0.63 X10^3/uL (0.83-4.51); Absolute Neutrophil Count 15.9 X10^3/uL (2.0-7.7); Basophil# 0.04 X10^3/uL; Basophil% 0.2 % (0-1); Eosinophil# 0.09 X10^3/uL; Eosinophils% 0.5 % (0-5); Hematocrit 22.9 % (37-47); Hemoglobin 7.1 g/dL (12.0-15.0); Lymphocyte # 0.63 X10^3/ul (0.83-4.51); Lymphocyte % 3.6 % (19-41); Mean Corpuscular Hgb 30.6 pg (27.0-32.0); Mean Corpuscular Volume 98.7 fL (81-99); Mean Platelet Vol. 9.8 fl (6.2-12.0); Monocyte# 0.54 X10^3/uL; Monocyte% 3.1 % (0-10); NRBC Flagged by Analyzer 0.2 % (0-5); Neutrophil # 15.88 X10^3/uL (2.7-7.7); Neutrophil % 91.6 % (47-70); Platelet Count 199 K/mm3 (150-450); RBC Distribution Width CV 16.6 % (11.6-14.6); RBC Distribution Width SD 60.4 fl (35.1-43.9); Red Blood Count 2.32 M/mm3 (4.2-5.4); White Blood Count 17.4 K/mm3 (4.4-11.0)
[2022-06-02 11:40] LABS: Anion Gap 8 (5-15); BUN 39 mg/dL (7-18); BUN/Creat Ratio 16.9 RATIO (10-20); Calcium,Total 8.1 mg/dL (8.5-10.1); Chloride 94 mmol/L (98-107); Creatinine, Serum 2.31 mg/dL (0.55-1.02); EST Glomerular Filtration Rate 22 mL/min (>60); Est Glom Filt Rate - Afr Amer 27 mL/min (>60); Glucose 87 mg/dL (74-106); Potassium 4.1 mmol/L (3.5-5.1); Sodium Level 129 mmol/L (136-145)
== END | disposition home or self-care (01) ==
LOC: OLS.WHLEAS 04:00
PROVIDERS: PCP Family Medicine; Visit Provider Family Medicine
DX: I69.354 Hemiplegia and hemiparesis following cerebral infarction affecting left non-dominant side (principal); E11.628 Type 2 diabetes mellitus with other skin complications; E11.42 Type 2 diabetes mellitus with diabetic polyneuropathy; E11.22 Type 2 diabetes mellitus with diabetic chronic kidney disease; N18.30 Chronic kidney disease, stage 3 unspecified
CPT/HCPCS: 36415; 80048; 85025

== ENCOUNTER 2022-06-04 07:23 | Inpatient (IN) | payer MEDICARE, MEDICAID, SELFPAY ==
[2022-06-04] VITALS (20 sets, daily range): BP systolic 104–153; BP diastolic 50–62; PULSE 66–80; RESP 11–21; TEMP 36.3–40.6; O2SAT 92–97; BMI 34.4; BMI 34.2
--- NOTE | 2022-06-04 07:44 | EKG12_ITS ---
Test Reason : fever Blood Pressure : / mmHG Vent. Rate : 078 BPM Atrial Rate : 078 BPM P-R Int : 148 ms QRS Dur : 090 ms QT Int : 358 ms P-R-T Axes : 014 004 066 degrees QTc Int : 408 ms Normal sinus rhythm Nonspecific ST and T wave abnormality Abnormal ECG Confirmed by GRACE NELSON, KERI ([id number]), fan mail editor GYPSY BASS ([id number]) on 06/08/2022 11:19:58 AM Referred By: Travis Confirmed By:TIFFANY EDWARDS MD
--- NOTE | 2022-06-04 07:49 | EDS_ITS ---
HPI History of Present Illness Chief Complaint: Fever Informant: family Limited: other (Patient is nonverbal) Onset/Context/Timing Onset: Days (2) Context: Gradual Onset Timing: Continuous Location: Generalized Narrative Narrative: Patient presents with fever for the past 2 days. Patient became less responsive today and was brought to the emergency department. Family states that the patient has been complaining of pain around her dialysis catheter that radiates into her neck and down her arm. Family states that the pain is worse with certain movements of her arm and neck. Family states that yesterday at dialysis they did blood cultures and one of the blood cultures came back positive. [facility] Medical History (HFpEF) heart failure with preserved ejection fraction Anemia Anxiety Atherosclerosis of coronary artery of [place] heart without angina pectoris Bruising Cardiology follow-up encounter Cellulitis of left lower limb Chronic headaches Chronic kidney disease (CKD) Chronic ulcer of left foot with necrosis of muscle Current use of insulin Depression Diabetic foot infection Diabetic nephropathy Dietary restriction Difficulty chewing Difficulty swallowing DM (diabetes mellitus), type 2, uncontrolled DVT (deep venous thrombosis) Dyspnea Easy bruising Essential hypertension Gastric reflux History of CHF (congestive heart failure) History of echocardiogram History of edema History of heart attack History of irregular heartbeat History of leukemia History of non-ST elevation myocardial infarction (NSTEMI) (01/13/20) History of steroid therapy Hypertension Insulin dependent diabetes mellitus Irregular heartbeat Kidney calculi Left foot infection Leg cramps Low iron Malnutrition Myocardial infarction Non-smoker Open wound Paralysis Peripheral vascular disease Post-menopausal Pre-op testing Pressure ulcer Rash Renal disease Restless legs Shortness of breath on exertion Sleep apnea Status post amputation of toe of left foot Stroke Thyroid disease Thyroiditis Type 2 diabetes mellitus with diabetic foot infection Ulcer Ulcer of left foot due to type 2 diabetes mellitus Upper gastrointestinal bleeding Home Medications amlodipine 10 mg tablet 10 mg PO DAILY BP 08/07/21 [History Last Taken Unknown] aspirin 81 mg capsule 81 mg PO DAILY Heart 08/07/21 [History Last Taken Unknown] metoprolol tartrate 25 mg tablet 50 mg PO BID BP 08/07/21 [History Last Taken Unknown] atorvastatin 80 mg tablet 80 mg PO QHS Cholesterol 08/12/21 [History Last Taken Unknown] clopidogrel 75 mg tablet 75 mg PO DAILY Antiplatelet 08/12/21 [History Last Taken Unknown] polyethylene glycol 3350 17 gram oral powder packet 17 g PO DAILY Constipation 08/12/21 [History Last Taken Unknown] nystatin 100,000 unit/gram topical powder (Nyamyc) 1 applic topical TID redness 02/21/22 [History Last Taken Unknown] furosemide 40 mg tablet 40 mg PO BID 04/22/22 [History Last Taken Unknown] levothyroxine 125 mcg tablet 125 mcg PO DAILY 04/22/22 [History Last Taken Unknown] calcium carbonate 600 mg calcium (1,500 mg) tablet 600 mg PO BID 04/23/22 [History Last Taken Unknown] citalopram 20 mg tablet 20 mg PO DAILY 04/23/22 [History Last Taken Unknown] insulin lispro 100 unit/mL subcutaneous pen 0 unit subcut TID 04/23/22 [History Last Taken Unknown] melatonin 1 mg tablet 1 mg PO QHS 04/23/22 [History Last Taken Unknown] prednisone 10 mg tablet 5 mg PO QODAY 04/23/22 [History Last Taken Unknown] pantoprazole 40 mg tablet,delayed release 40 mg PO BID #60 tabs 04/26/22 [Rx Last Taken Unknown] doxycycline hyclate 50 mg capsule 50 cap PO 1200 05/18/22 [History Last Taken Unknown] acetaminophen 500 mg tablet 1,000 mg PO Q6H PRN pain/fever 06/04/22 [History Last Taken Unknown] bisacodyl 10 mg rectal suppository 10 mg [place] DAILY PRN Constipation 06/04/22 [History Last Taken Unknown] magnesium hydroxide 400 mg/5 mL oral suspension (Milk of Magnesia) 30 ml PO DAILY PRN Constipation 06/04/22 [History Last Taken Unknown] menthol 0.44 %-zinc oxide 20.6 % topical ointment 1 applic topical DAILY 06/04/22 [History Last Taken Unknown] ondansetron 4 mg disintegrating tablet 4 mg PO Q6H PRN Nausea 06/04/22 [History Last Taken Unknown] oxycodone 5 mg tablet 5 mg PO Q6H PRN Pain 06/04/22 [History Last Taken Unknown] triamcinolone acetonide 0.1 % topical ointment 1 applic topical BID 06/04/22 [History Last Taken Unknown] Allergy/AdvReac Type Severity Reaction Status Date / Time baclofen AdvReac Other Verified 06/04/22 07:25 Family History Mother CVA (cerebral vascular accident) Other Diabetes Heart disease Surgical History H/O coronary artery bypass surgery History of heart artery stent S/P tubal ligation Status post arterial stent Status post coronary artery bypass graft Status post coronary artery stent placement Status post hysterectomy Status post transmetatarsal amputation of left foot Social History household members: children housing: intermediate Smoking Status: Never smoker ROS ROS ED Review of Systems ROS Unobtainable: due to mental condition and due to mental status EXAM Physical Exam Const Vital Signs: 06/04/22 07:25 06/04/22 07:32 06/04/22 07:35 Temperature 102.3 F H 103.6 F H Temperature Source Core Core Pulse Rate 80 79 Respiratory Rate 21 H 12 Respiratory Effort Normal Non-Labored Respiratory Pattern Normal Blood Pressure 144/58 H 153/58 H Blood Pressure Mean 86 89 Pulse Ox 95 97 Oxygen Delivery Method Room Air Room Air 06/04/22 07:54 06/04/22 07:58 06/04/22 08:00 Temperature 105.1 F H 105.1 F H Temperature Source Core Core Pulse Rate 77 Respiratory Rate 11 L Respiratory Effort Respiratory Pattern Blood Pressure 153/58 H Blood Pressure Mean 89 Pulse Ox 96 96 Oxygen Delivery Method Room Air Room Air 06/04/22 08:33 06/04/22 08:54 06/04/22 10:00 Temperature 104.6 F H 104.2 F H 103.3 F H Temperature Source Core Core Temporal Pulse Rate 75 73 Respiratory Rate 18 15 Respiratory Effort Respiratory Pattern Blood Pressure 126/62 H 124/50 H Blood Pressure Mean 83 74 Pulse Ox 96 92 Oxygen Delivery Method Room Air Room Air 06/04/22 10:00 Temperature 103.3 F H Temperature Source Temporal Pulse Rate Respiratory Rate Respiratory Effort Respiratory Pattern Blood Pressure Blood Pressure Mean Pulse Ox Oxygen Delivery Method Positive well nourished, well developed and obese General Appearance ED: well developed Nutritional Appearance: obese HEENT Reports dry mucous membranes Mouth ED: Yes dry mucous membranes Mouth: dry mucous membranes Neck no lymphadenopathy and no JVD Resp clear to auscultation bilaterally Auscultation: diminished lung sounds diffuse Cardio regular rate and regular rhythm GI non-tender and non-distended Palpation: soft Neuro Sensorium / Orientation: stuporous Motor Exam: general weakness MDM MDM MDM Narrative Medical decision making narrative: EKG was obtained. On my interpretation, it showed a normal sinus rhythm with a rate of 78. AR interval, QRS interval, and QTc intervals were all normal. [place] was normal. There are nonspecific ST-T wave changes. Portable 1 view chest x- ray was obtained. On my interpretation, lung pritchard are clear. There is normal cardiac silhouette. Bony thorax is normal. There is no acute process noted. Radiologist also interpreted the x-ray and agrees. CBC shows a leukocytosis of 15.5 but this is slightly improved from yesterday discharge. When it was 17.4. Hemoglobin was 7.3 and hematocrit was 23.2. These are consistent with prior results.. PT with INR were normal. PTT was slightly elevated at 41.3. Comprehensive metabolic profile showed a sodium of 129 and chloride of 92. BUN was 35 and creatinine was 2.28. These are consistent with prior results. Initial high-sensitivity troponin was normal. Lactate was normal. Urinalysis shows a leukocyte esterase of 500 with 25-50 white blood cells and 3+ bacteria. Blood cultures and urine culture were performed. Patient was started on Zosyn and vancomycin. Case was discussed with the hospitalist. She will admit the patient to her service. Family understood and were agreeable with the plan. All questions were answered. Lab Data Attestation: I reviewed the patient's lab results. Labs: Laboratory Results - last 24 hr 06/04/22 06/04/22 06/04/22 07:34 07:43 07:43 WBC 15.5 H RBC 2.41 L Hgb 7.3 L Hct 23.2 L MCV 96.3 MCH 30.3 MCHC 31.5 L RDW Std Deviation 56.8 H RDW Coeff of Jenna 15.9 H Plt Count 178 MPV 9.8 Immature Gran % (Auto) 0.900 Neut % (Auto) 88.3 H Lymph % (Auto) 4.6 L [place] % (Auto) 5.8 Eos % (Auto) 0.1 Baso % (Auto) 0.3 Absolute Neuts (auto) 13.7 H Absolute Lymphs (auto) 0.71 L Nucleated RBC % 0.1 PT 14.6 INR 1.2 APTT 41.3 H Sodium Potassium Chloride Carbon Dioxide Anion Gap BUN Creatinine Estim Creat Clear Calc Est GFR (MDRD) Af Amer Est GFR (MDRD) Non-Af BUN/Creatinine Ratio Glucose Lactic Acid Calcium Total Bilirubin AST ALT Alkaline Phosphatase Troponin I High Sens Total Protein Albumin Globulin Albumin/Globulin Ratio Urine Color Yellow Urine Clarity Sl. Cloudy Urine pH 8.0 Ur Specific [place] 1.010 Urine Protein 500 H Urine Glucose (UA) Normal Urine Ketones 5 H Urine Occult Blood 25 H Urine Nitrite Negative Urine Bilirubin Negative Urine Urobilinogen Normal Ur Leukocyte Esterase 500 H Urine RBC 0-5 SEEN Urine WBC 25-50 SEEN Ur Squamous Epith Cells 0-5 SEEN Urine Bacteria 3+ Urine Mucus 0 SEEN 06/04/22 06/04/22 07:43 07:43 WBC RBC Hgb Hct MCV MCH MCHC RDW Std Deviation RDW Coeff of Jenna Plt Count MPV Immature Gran % (Auto) Neut % (Auto) Lymph % (Auto) [place] % (Auto) Eos % (Auto) Baso % (Auto) Absolute Neuts (auto) Absolute Lymphs (auto) Nucleated RBC % PT INR APTT Sodium 129 L Potassium 3.7 Chloride 92 L Carbon Dioxide 30.0 Anion Gap 7 BUN 35 H Creatinine 2.28 H Estim Creat Clear Calc 19.26 Est GFR (MDRD) Af Amer 27 L Est GFR (MDRD) Non-Af 22 L BUN/Creatinine Ratio 15.4 Glucose 89 Lactic Acid 0.9 Calcium 7.8 L Total Bilirubin 0.80 AST 18 ALT 9 L Alkaline Phosphatase 95 Troponin I High Sens 48 Total Protein 5.7 L Albumin 2.2 L Globulin 3.5 Albumin/Globulin Ratio 0.6 L Urine Color Urine Clarity Urine pH Ur Specific [place] Urine Protein Urine Glucose (UA) Urine Ketones Urine Occult Blood Urine Nitrite Urine Bilirubin Urine Urobilinogen Ur Leukocyte Esterase Urine RBC Urine WBC Ur Squamous Epith Cells Urine Bacteria Urine Mucus Radiography Chest X-Ray - ED: 1 View, Read by ED Physician, Read by Radiologist and No Acute Disease Diagnostic Testing: Clinical Impression(s) from Imaging Studies Chest X-Ray 06/04/22 08:25 IMPRESSION: No acute abnormality is seen. Electronically Signed: Donny Mariee MD at 8:40 EDT , EKG Initial EKG: Attestation: I personally reviewed and interpreted this EKG as follows: Interpretation: Sinus Rhythm (78) and Non-Specific ST Changes Prior EKG tracings: available for review Prior: Unchanged (04/24/2022) Discharge Plan Dx/Rx/DC Orders Clinical Impression: Altered mental status, Essential hypertension, Chronic kidney disease (CKD), Urinary tract infection Disposition Disposition: Acute Care Hospital [facility]
[2022-06-04] MEDS: Acetaminophen 650 MG Suppository RC ×2 (07:55→19:51)
[2022-06-04 07:59] LABS: Mucous, Urine 0 SEEN /hpf (<or=2+)
[2022-06-04 08:04] LABS: Absolute Lymphocyte Count 0.71 X10^3/uL (0.83-4.51); Absolute Neutrophil Count 13.7 X10^3/uL (2.0-7.7); Basophil# 0.04 X10^3/uL; Basophil% 0.3 % (0-1); Differential Indicated SCAN CRITERIA MET; Eosinophil# 0.01 X10^3/uL; Eosinophils% 0.1 % (0-5); Hematocrit 23.2 % (37-47); Hemoglobin 7.3 g/dL (12.0-15.0); Lymphocyte # 0.71 X10^3/ul (0.83-4.51); Lymphocyte % 4.6 % (19-41); Mean Corp Hgb Conc 31.5 g/dL (32-36); Mean Corpuscular Hgb 30.3 pg (27.0-32.0); Mean Corpuscular Volume 96.3 fL (81-99); Mean Platelet Vol. 9.8 fl (6.2-12.0); Monocyte% 5.8 % (0-10); NRBC Flagged by Analyzer 0.1 % (0-5); Neutrophil # 13.68 X10^3/uL (2.7-7.7); Neutrophil % 88.3 % (47-70); POSITIVE MORPHOLOGY YES; Platelet Count 178 K/mm3 (150-450); RBC Distribution Width CV 15.9 % (11.6-14.6); RBC Distribution Width SD 56.8 fl (35.1-43.9); Red Blood Count 2.41 M/mm3 (4.2-5.4); White Blood Count 15.5 K/mm3 (4.4-11.0)
[2022-06-04 08:13] LABS: Color, Urine Yellow (Yellow); Glucose, Dipstick Normal (Normal); Ketone-Dipstick 5 mg/dl (Negative); Leukocyte Esterase-Dipstick 500 /ul (Negative); Nitrite-Dipstick Negative (Negative); Occult Blood-Urine 25 /ul (Negative); Protein-Dipstick 500 mg/dl (Negative); Urine Bilirubin Dipstick Negative (Negative); Urine Clarity Sl. Cloudy (Clear); Urine Urobilinogen Normal (Normal)
--- NOTE | 2022-06-04 08:25 | RAD_ITS ---
STUDY: X-RAY CHEST REASON FOR EXAM: Female, 72 years old. Fever TECHNIQUE: Single AP portable view of the chest. COMPARISON: Comparison is made with prior study dated 05/20/2022. FINDINGS: Surgical clips are seen in the region of the thyroid gland. A right-sided double-lumen catheter seen with the tip at the junction of the superior vena cava and right atrium. EKG electrodes are seen. The lungs are clear and expanded. There is no demonstrated pleural abnormality. Sternal cerclage wires and vascular clips are present from a prior sternotomy and coronary artery bypass graft procedure (CABG). Normal mediastinum and emma. Normal visualized pulmonary arteries. There is atherosclerotic calcification of the aortic arch with tortuosity. Normal visualized thoracic spine. Normal visualized ribs, clavicles, and shoulders. There is no demonstrated abnormality of the visualized soft tissue structures of the upper abdomen. RAD/Chest 1 View (Portable) IMPRESSION: No acute abnormality is seen. Electronically Signed: Donny Mariee MD at 8:40 EDT ,
[2022-06-04 08:29] LABS: Lactic Acid 0.9 mmol/L (0.4-1.9)
[2022-06-04 08:31] LABS: Bacteria 3+ /hpf (None Seen); Red Blood Cells-Urine 0-5 SEEN /hpf (0-5); Squamous Epithelial Cells - UA 0-5 SEEN /hpf (5-10); White Blood Cells 25-50 SEEN /hpf (0-5)
[2022-06-04 08:33] LABS: ALB/GLOB Ratio 0.6 RATIO (0.9-2.4); AST(SGOT) 18 U/L (15-37); Alanine Aminotransfer ALT/SGPT 9 U/L (13-56); Albumin, Serum 2.2 g/dL (3.2-5.0); Alkaline Phosphatase 95 U/L (45-117); Anion Gap 7 (5-15); BUN 35 mg/dL (7-18); BUN/Creat Ratio 15.4 RATIO (10-20); Calcium,Total 7.8 mg/dL (8.5-10.1); Chloride 92 mmol/L (98-107); Creatinine, Serum 2.28 mg/dL (0.55-1.02); EST Glomerular Filtration Rate 22 mL/min (>60); Est Glom Filt Rate - Afr Amer 27 mL/min (>60); Estimated Creatinine Clearance 19.26 ml/min; Globulin 3.5 g/dL (2.2-4.2); Glucose 89 mg/dL (74-106); Potassium 3.7 mmol/L (3.5-5.1); Protein, Total 5.7 g/dL (6.4-8.2); Sodium Level 129 mmol/L (136-145); Troponin-I HS 48 pg/mL (3.0-54.0)
[2022-06-04 09:01] LABS: International Normalized Ratio 1.2; Prothrombin Time (Protime)PT. 14.6 SECONDS (11.7-14.9)
[2022-06-04 09:04] LABS: Partial Thromboplast Time 41.3 Seconds (24.1-36.2)
--- NOTE | 2022-06-04 10:08 | HP.PCM.HOS_ITS ---
HPI - General General Date of Admission: 06/04/22 Date of Service: 06/04/22 Chief Complaint: fever HPI Narrative EBONIE WOLF, is a 72 F with a PMH as outlined who presents via the ED on 06/04/2022 with a complaint of altered mental status and fever. Family noted she was less responsive today. She had been complaining of pain at the site of her dialysis catheter. Pain was worsened by moving her arm. She also had blood cultures done yesterday at dialysis and it came back positive today. She couldnt give much of a history due to her acute metabolic encephalopathy. History was mainly taken from her daughter who mentioned that patient had had a fever for about 3 days, and was quite lethargic when she saw her in the SNF yesterday. [place], she called to check up on her mom and was told she was much weaker and even more lethargic today. Vitals in the ED were BP of 124/50, [place] of 73, RR of 15 and temp of 103.3F. She was saturating at 92% on room air. CBC showed Hb of 7.3, wbc of 15.5, platelets of 178. INR was 1.2. Chemistry showed sodium of 129 with potassium of 3.7 and Cr of 2.28. Urinalysis showed 3+ bacteria. CXR showed no acute cardiopulmonary abnormality. She is being admitted to be managed for UTI and probable infected dialysis catheter. [facility] Medical History (HFpEF) heart failure with preserved ejection fraction Anemia Anxiety Atherosclerosis of coronary artery of [place] heart without angina pectoris Bruising Cardiology follow-up encounter Cellulitis of left lower limb Chronic headaches Chronic kidney disease (CKD) Chronic ulcer of left foot with necrosis of muscle Current use of insulin Depression Diabetic foot infection Diabetic nephropathy Dietary restriction Difficulty chewing Difficulty swallowing DM (diabetes mellitus), type 2, uncontrolled DVT (deep venous thrombosis) Dyspnea Easy bruising Essential hypertension Gastric reflux History of CHF (congestive heart failure) History of echocardiogram History of edema History of heart attack History of irregular heartbeat History of leukemia History of non-ST elevation myocardial infarction (NSTEMI) (01/13/20) History of steroid therapy Hypertension Insulin dependent diabetes mellitus Irregular heartbeat Kidney calculi Left foot infection Leg cramps Low iron Malnutrition Myocardial infarction Non-smoker Open wound Paralysis Peripheral vascular disease Post-menopausal Pre-op testing Pressure ulcer Rash Renal disease Restless legs Shortness of breath on exertion Sleep apnea Status post amputation of toe of left foot Stroke Thyroid disease Thyroiditis Type 2 diabetes mellitus with diabetic foot infection Ulcer Ulcer of left foot due to type 2 diabetes mellitus Upper gastrointestinal bleeding Home Medications amlodipine 10 mg tablet 10 mg PO DAILY BP 08/07/21 [History Last Taken Unknown] aspirin 81 mg capsule 81 mg PO DAILY Heart 08/07/21 [History Last Taken Unknown] metoprolol tartrate 25 mg tablet 50 mg PO BID BP 08/07/21 [History Last Taken Unknown] atorvastatin 80 mg tablet 80 mg PO QHS Cholesterol 08/12/21 [History Last Taken Unknown] clopidogrel 75 mg tablet 75 mg PO DAILY Antiplatelet 08/12/21 [History Last Taken Unknown] polyethylene glycol 3350 17 gram oral powder packet 17 g PO DAILY Constipation 08/12/21 [History Last Taken Unknown] nystatin 100,000 unit/gram topical powder (Nyamyc) 1 applic topical TID redness 02/21/22 [History Last Taken Unknown] furosemide 40 mg tablet 40 mg PO BID 04/22/22 [History Last Taken Unknown] levothyroxine 125 mcg tablet 125 mcg PO DAILY 04/22/22 [History Last Taken Unknown] calcium carbonate 600 mg calcium (1,500 mg) tablet 600 mg PO BID 04/23/22 [History Last Taken Unknown] citalopram 20 mg tablet 20 mg PO DAILY 04/23/22 [History Last Taken Unknown] insulin lispro 100 unit/mL subcutaneous pen 0 unit subcut TID 04/23/22 [History Last Taken Unknown] melatonin 1 mg tablet 1 mg PO QHS 04/23/22 [History Last Taken Unknown] prednisone 10 mg tablet 5 mg PO QODAY 04/23/22 [History Last Taken Unknown] pantoprazole 40 mg tablet,delayed release 40 mg PO BID #60 tabs 04/26/22 [Rx Last Taken Unknown] doxycycline hyclate 50 mg capsule 50 cap PO 1200 05/18/22 [History Last Taken Unknown] acetaminophen 500 mg tablet 1,000 mg PO Q6H PRN pain/fever 06/04/22 [History Last Taken Unknown] bisacodyl 10 mg rectal suppository 10 mg [place] DAILY PRN Constipation 06/04/22 [History Last Taken Unknown] magnesium hydroxide 400 mg/5 mL oral suspension (Milk of Magnesia) 30 ml PO DAILY PRN Constipation 06/04/22 [History Last Taken Unknown] menthol 0.44 %-zinc oxide 20.6 % topical ointment 1 applic topical DAILY 06/04/22 [History Last Taken Unknown] ondansetron 4 mg disintegrating tablet 4 mg PO Q6H PRN Nausea 06/04/22 [History Last Taken Unknown] oxycodone 5 mg tablet 5 mg PO Q6H PRN Pain 06/04/22 [History Last Taken Unknown] triamcinolone acetonide 0.1 % topical ointment 1 applic topical BID 06/04/22 [History Last Taken Unknown] Allergy/AdvReac Type Severity Reaction Status Date / Time baclofen AdvReac Other Verified 06/04/22 07:25 Family History Mother CVA (cerebral vascular accident) Other Diabetes Heart disease Surgical History H/O coronary artery bypass surgery History of heart artery stent S/P tubal ligation Status post arterial stent Status post coronary artery bypass graft Status post coronary artery stent placement Status post hysterectomy Status post transmetatarsal amputation of left foot Social History household members: children housing: jail Smoking Status: Never smoker ROS Review of Systems ROS Unobtainable: due to encephalopathy Vital Signs Vital Signs Vital Signs: 06/04/22 07:25 06/04/22 07:32 06/04/22 07:35 Temperature 102.3 F H 103.6 F H Temperature Source Core Core Pulse Rate 80 79 Respiratory Rate 21 H 12 Respiratory Effort Normal Non-Labored Respiratory Pattern Normal Blood Pressure 144/58 H 153/58 H Blood Pressure Mean 86 89 Pulse Ox 95 97 Oxygen Delivery Method Room Air Room Air 06/04/22 07:54 06/04/22 07:58 06/04/22 08:00 Temperature 105.1 F H 105.1 F H Temperature Source Core Core Pulse Rate 77 Respiratory Rate 11 L Respiratory Effort Respiratory Pattern Blood Pressure 153/58 H Blood Pressure Mean 89 Pulse Ox 96 96 Oxygen Delivery Method Room Air Room Air 06/04/22 08:33 06/04/22 08:54 06/04/22 10:00 Temperature 104.6 F H 104.2 F H 103.3 F H Temperature Source Core Core Temporal Pulse Rate 75 73 Respiratory Rate 18 15 Respiratory Effort Respiratory Pattern Blood Pressure 126/62 H 124/50 H Blood Pressure Mean 83 74 Pulse Ox 96 92 Oxygen Delivery Method Room Air Room Air 06/04/22 10:00 Temperature 103.3 F H Temperature Source Temporal Pulse Rate Respiratory Rate Respiratory Effort Respiratory Pattern Blood Pressure Blood Pressure Mean Pulse Ox Oxygen Delivery Method Weight Weight: 201 lb 0.985 oz Body Mass Index (BMI) 34.4 Physical Exam Const Orientation / Consciousness: confused, disoriented and lethargic HEENT normocephalic and head/scalp atraumatic HEENT Narrative: dry oral mucosal membranes Eyes PERRL and EOMs intact bilaterally Neck no lymphadenopathy Resp Resp Narrative: diminished breath sounds bibasally, Cardio regular rate, regular rhythm, S1 normal heart sound, S2 normal heart sound and no murmurs GI normal to inspection, nondistended, normoactive bowel sounds, soft to palpation, non-tender and non-distended Extremity normal to inspection, full ROM and no clubbing, cyanosis or edema Skin Skin Narrative: erythema over site of tunneled dialysis catheter, area warm to touch Neuro Neuro Narrative: confused, lethargic, drowsy Results Lab / Micro Data Result Diagrams: 06/04/22 07:43 06/04/22 07:43 Labs: Laboratory Results - last 24 hr 06/04/22 07:34: Urine Color Yellow, Urine Clarity Sl. Cloudy, Urine pH 8.0, Ur Specific [place] 1.010, Urine Protein 500 H, Urine Glucose (UA) Normal, Urine Ketones 5 H, Urine Occult Blood 25 H, Urine Nitrite Negative, Urine Bilirubin Negative, Urine Urobilinogen Normal, Ur Leukocyte Esterase 500 H, Urine RBC 0-5 SEEN, Urine WBC 25-50 SEEN, Ur Squamous Epith Cells 0-5 SEEN, Urine Bacteria 3+, Urine Mucus 0 SEEN 06/04/22 07:43: WBC 15.5 H, RBC 2.41 L, Hgb 7.3 L, Hct 23.2 L, MCV 96.3, MCH 30.3, MCHC 31.5 L, RDW Std Deviation 56.8 H, RDW Coeff of Jenna 15.9 H, Plt Count 178, MPV 9.8, Immature Gran % (Auto) 0.900, Neut % (Auto) 88.3 H, Lymph % (Auto) 4.6 L, [place] % (Auto) 5.8, Eos % (Auto) 0.1, Baso % (Auto) 0.3, Absolute Neuts (auto) 13.7 H, Absolute Lymphs (auto) 0.71 L, Nucleated RBC % 0.1 06/04/22 07:43: PT 14.6, INR 1.2, APTT 41.3 H 06/04/22 07:43: Sodium 129 L, Potassium 3.7, Chloride 92 L, Carbon Dioxide 30.0, Anion Gap 7, BUN 35 H, Creatinine 2.28 H, Estim Creat Clear Calc 19.26, Est GFR (MDRD) Af Amer 27 L, Est GFR (MDRD) Non-Af 22 L, BUN/Creatinine Ratio 15.4, Glucose 89, Calcium 7.8 L, Total Bilirubin 0.80, AST 18, ALT 9 L, Alkaline Phosphatase 95, Troponin I High Sens 48, Total Protein 5.7 L, Albumin 2.2 L, Globulin 3.5, Albumin/Globulin Ratio 0.6 L 06/04/22 07:43: Lactic Acid 0.9 Radiology Impression Chest X-Ray 06/04/22 08:25 IMPRESSION: No acute abnormality is seen. Electronically Signed: Donny Mariee MD at 8:40 EDT , Assessment & Plan Assessment/Plan (1) Altered mental status: (2) Urinary tract infection: PLAN: Plan #Acute metabolic encephalopathy * due to UTI and probable infected dialysis catheter * admit to PCU with telemetry * hold off on hydration with IVF as she has ESRD and is due for dialysis today * get blood cultures * urinalysis showed 3+ bacteria. Urine culture ordered * wbc is 15.5 * IV vancomycin and zosyn * #ESRD on HD * daughter says patient started dialysis just a few weeks ago. * CR is 2.28 today * on dialysis TTS. * consult nephrology for dialysis today * site of tunneled dialysis catheter in right chest is erythematous and warm to toch. blood cultures ordered and pending * #Hyponatremia * Na is 129. Likely due to ESRD as she needs dialysis today * will trend sodium level * #Chronic anemia: * Hb is 7.3. * This is chronic. 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 Couldnt have colonoscopy as she couldnt tolerate the prep * Baseline is ~ 7-8. * on PO pantoprazole * Will monitor #TYpe 2 diabetes mellitus: hold insulin lantus due to encephalopathy. ISS. Accuchecks ACHS #Hyperlipidemia: On statin #History of heart failure preserved ejection fraction: On Lasix. Not in exacerbation #History of CAD s/p CABG: On aspirin and Plavix as well as high intensity statin #Depression: On citalopram DVT prophylaxis: Lovenox renally dosed CODE STATUS: Full code * Daughter tells me that she knows her mother's preferred wishes DNR CCA no intubation. However daughter states that she was not in favor of that CODE STATUS and in the event that anything happens to her mother, the rest of the family lives in [place] and will take him some time to get here. She would therefore want her mother to be full code for now. Since patient is incapacitated and unable to make decisions for herself and daughter is her decision-maker, will accept daughter's wishes to make patient full code * Total [id number] time 18 minutes. Charges/Coding Visit Charges Inpatient E&M: 61742 Init Hosp L3 Procedures Hospitalists Procedures: 80057 Advncd Care Plan 30 Min
--- NOTE | 2022-06-04 13:09 | PCM.RX.CS ---
Consult Pharmacy has been consulted to manage selected antiobiotic: Vancomycin Type of Consult: New start Suspected Infection: Bacteremia Prior Doses of Antibiotics Received/Current Regimen: Loading dose of 2gm iv x 1 in ER @0854 06.04.22. Labs: Sodium 129 mmol/L (136-145) L 06/04/22 07:43 Potassium 3.7 mmol/L (3.5-5.1) 06/04/22 07:43 Chloride 92 mmol/L (98-107) L 06/04/22 07:43 Carbon Dioxide 30.0 mmol/L (21.0-32.0) 06/04/22 07:43 Anion Gap 7 (5-15) 06/04/22 07:43 BUN 35 mg/dL (7-18) H 06/04/22 07:43 Creatinine 2.28 mg/dL (0.55-1.02) H 06/04/22 07:43 Est GFR (MDRD) Af Amer 27 mL/min (>60) L 06/04/22 07:43 Est GFR (MDRD) Non-Af 22 mL/min (>60) L 06/04/22 07:43 BUN/Creatinine Ratio 15.4 RATIO (10-20) 06/04/22 07:43 Glucose 89 mg/dL (74-106) 06/04/22 07:43 Weight used for dosin.5 kg Estimated Creatinine Clearance: 23ml/min Goal Trough: 15-20 mcg/mL Pharmacy Plan for Drug Dosing: Dialysis patient with Cr 2.28 and calculated CrCl of ~23ml/min using adjusted body weight of 66.2kg. Have ordered random level for 7.29.22 ~ 24hrs after loading dose. Pharmacy Service will continue to monitor and adjust dosing as required. Follow-Up Labs: Trough Vancomycin - 7.29.22 @0900 random level
--- NOTE | 2022-06-04 17:14 | CON.PCM.RE_ITS ---
Assessment & Plan Assessment/Plan (1) Altered mental status: PLAN: due to sepsis (2) ESRD (end stage renal disease) on dialysis: PLAN: hold dialysis today (3) Sepsis: PLAN: tunneled catheter removal for sepsis. ID consulted. (4) Anasarca: PLAN: improved with dialysis (5) PAOD (peripheral arterial occlusive disease): (6) Anemia: PLAN: 2u prbc on dialysis (7) Debility: PLAN: full assist, ECF pt (8) Atherosclerosis of coronary artery of [place] heart without angina pectoris: PLAN: hx CABG (9) H/O coronary artery bypass surgery: (10) Essential hypertension: (11) Obesity: (12) Urinary tract infection: HPI Consult Data Date of Consult: 06/06/22 HPI Narrative Reason for Consultation: ESRD dialysis, line infection HPI Narrative: EBONIE WOLF, is a 72 F ECF pt who is full assist, wheelchair bound, debilit ated with hx stroke, new to dialysis with ESRD from DM2 with tunneled dialysis catheter placement on 05/20/22. Admitted from ECF for altered mental status, fever. She had tunnel catheter drainage and blood cx positive from 2 days ago at dialysis center. She was fully alert Clare at dialysis center then became unresponsive past day with high fever T 104. Blood and urine cx sent in ER. Started on iv vanco. Requested consult with general surgery for dialysis catheter removal on day of admission. She had leukocytosis with WBC 17K on admission. WBC was normal at 9.86 on 05/26/22 at dialysis center. She is on chronic steroid therapy for history of bullous pemphigoid. She was set up for a blood transfusion for hgb 7.2g yesterday. Will hold dialysis today since her volume status is stable and electrolytes stable. Discussed with family and primary service and . [facility] Medical History (HFpEF) heart failure with preserved ejection fraction Anemia Anxiety Atherosclerosis of coronary artery of [place] heart without angina pectoris Bruising Cardiology follow-up encounter Cellulitis of left lower limb Chronic headaches Chronic kidney disease (CKD) Chronic ulcer of left foot with necrosis of muscle Current use of insulin Depression Diabetic foot infection Diabetic nephropathy Dietary restriction Difficulty chewing Difficulty swallowing DM (diabetes mellitus), type 2, uncontrolled DVT (deep venous thrombosis) Dyspnea Easy bruising Essential hypertension Gastric reflux History of CHF (congestive heart failure) History of echocardiogram History of edema History of heart attack History of irregular heartbeat History of leukemia History of non-ST elevation myocardial infarction (NSTEMI) (01/13/20) History of steroid therapy Hypertension Insulin dependent diabetes mellitus Irregular heartbeat Kidney calculi Left foot infection Leg cramps Low iron Malnutrition Myocardial infarction Non-smoker Open wound Paralysis Peripheral vascular disease Post-menopausal Pre-op testing Pressure ulcer Rash Renal disease Restless legs Shortness of breath on exertion Sleep apnea Status post amputation of toe of left foot Stroke Thyroid disease Thyroiditis Type 2 diabetes mellitus with diabetic foot infection Ulcer Ulcer of left foot due to type 2 diabetes mellitus Upper gastrointestinal bleeding Home Medications amlodipine 10 mg tablet 10 mg PO DAILY BP 08/07/21 [History Last Taken Unknown] aspirin 81 mg capsule 81 mg PO DAILY Heart 08/07/21 [History Last Taken Unknown] metoprolol tartrate 25 mg tablet 50 mg PO BID BP 08/07/21 [History Last Taken Unknown] atorvastatin 80 mg tablet 80 mg PO QHS Cholesterol 08/12/21 [History Last Taken Unknown] clopidogrel 75 mg tablet 75 mg PO DAILY Antiplatelet 08/12/21 [History Last Taken Unknown] polyethylene glycol 3350 17 gram oral powder packet 17 g PO DAILY Constipation 08/12/21 [History Last Taken Unknown] nystatin 100,000 unit/gram topical powder ([facility]) 1 applic topical TID redness 02/21/22 [History Last Taken Unknown] furosemide 40 mg tablet 40 mg PO BID 04/22/22 [History Last Taken Unknown] levothyroxine 125 mcg tablet 125 mcg PO DAILY 04/22/22 [History Last Taken Unknown] calcium carbonate 600 mg calcium (1,500 mg) tablet 600 mg PO BID 04/23/22 [History Last Taken Unknown] citalopram 20 mg tablet 20 mg PO DAILY 04/23/22 [History Last Taken Unknown] insulin lispro 100 unit/mL subcutaneous pen 0 unit subcut TID 04/23/22 [History Last Taken Unknown] melatonin 1 mg tablet 1 mg PO QHS 04/23/22 [History Last Taken Unknown] prednisone 10 mg tablet 5 mg PO QODAY 04/23/22 [History Last Taken Unknown] pantoprazole 40 mg tablet,delayed release 40 mg PO BID #60 tabs 04/26/22 [Rx Last Taken Unknown] doxycycline hyclate 50 mg capsule 50 cap PO 1200 05/18/22 [History Last Taken Unknown] acetaminophen 500 mg tablet 1,000 mg PO Q6H PRN pain/fever 06/04/22 [History Last Taken Unknown] bisacodyl 10 mg rectal suppository 10 mg [place] DAILY PRN Constipation 06/04/22 [History Last Taken Unknown] magnesium hydroxide 400 mg/5 mL oral suspension (Milk of Magnesia) 30 ml PO DAILY PRN Constipation 06/04/22 [History Last Taken Unknown] menthol 0.44 %-zinc oxide 20.6 % topical ointment 1 applic topical DAILY 06/04/22 [History Last Taken Unknown] ondansetron 4 mg disintegrating tablet 4 mg PO Q6H PRN Nausea 06/04/22 [History Last Taken Unknown] oxycodone 5 mg tablet 5 mg PO Q6H PRN Pain 06/04/22 [History Last Taken Unknown] triamcinolone acetonide 0.1 % topical ointment 1 applic topical BID 06/04/22 [History Last Taken Unknown] Allergy/AdvReac Type Severity Reaction Status Date / Time baclofen AdvReac Other Verified 06/04/22 07:25 Family History Mother CVA (cerebral vascular accident) Other Diabetes Heart disease Surgical History H/O coronary artery bypass surgery History of heart artery stent S/P tubal ligation Status post arterial stent Status post coronary artery bypass graft Status post coronary artery stent placement Status post hysterectomy Status post transmetatarsal amputation of left foot Social History household members: children housing: care home Smoking Status: Never smoker ROS Review of Systems ROS Unobtainable: due to encephalopathy Constitutional Constitutional: Reports fever(s), malaise and weakness Gastrointestinal Gastrointestinal: Reports anorexia; Denies abdominal pain, diarrhea or dry heaves Genitourinary Genitourinary: Reports other Details: oligoanuric on lasix Musculoskeletal Musculoskeletal: Reports other Details: right arm, neck pain, debilitation, full assist Integumentary Integumentary: Denies rash Neurologic Neurologic: Reports weakness Psychiatric Psychiatric: Reports confusion and depression Endocrine Endocrinology: Reports fatigue Hematologic/Lymphatic Hematologic/Lymphatic: Reports anemia Physical Exam Narrative unresponsive Const Nutritional Appearance: obese HEENT normocephalic Resp no use of accessory muscles and clear to auscultation bilaterally Cardio regular rate GI non-tender and non-distended Auscultation: normoactive bowel sounds Palpation: soft Narrative: oliguric Extremity Extremity Narrative: mild edema General Extremity: edema Neuro Sensorium / Orientation: lethargic Lab / Micro Data Result Diagrams: 06/06/22 07:26 06/06/22 07:26 Labs: Laboratory Results - last 24 hr 06/04/22 07:34: Urine Color Yellow, Urine Clarity Sl. Cloudy, Urine pH 8.0, Ur Specific [place] 1.010, Urine Protein 500 H, Urine Glucose (UA) Normal, Urine Ketones 5 H, Urine Occult Blood 25 H, Urine Nitrite Negative, Urine Bilirubin Negative, Urine Urobilinogen Normal, Ur Leukocyte Esterase 500 H, Urine RBC 0-5 SEEN, Urine WBC 25-50 SEEN, Ur Squamous Epith Cells 0-5 SEEN, Urine Bacteria 3+, Urine Mucus 0 SEEN 06/04/22 07:43: WBC 15.5 H, RBC 2.41 L, Hgb 7.3 L, Hct 23.2 L, MCV 96.3, MCH 30.3, MCHC 31.5 L, RDW Std Deviation 56.8 H, RDW Coeff of Jenna 15.9 H, Plt Count 178, MPV 9.8, Immature Gran % (Auto) 0.900, Neut % (Auto) 88.3 H, Lymph % (Auto) 4.6 L, [place] % (Auto) 5.8, Eos % (Auto) 0.1, Baso % (Auto) 0.3, Absolute Neuts (auto) 13.7 H, Absolute Lymphs (auto) 0.71 L, Nucleated RBC % 0.1 06/04/22 07:43: PT 14.6, INR 1.2, APTT 41.3 H 06/04/22 07:43: Sodium 129 L, Potassium 3.7, Chloride 92 L, Carbon Dioxide 30.0, Anion Gap 7, BUN 35 H, Creatinine 2.28 H, Estim Creat Clear Calc 19.26, Est GFR (MDRD) Af Amer 27 L, Est GFR (MDRD) Non-Af 22 L, BUN/Creatinine Ratio 15.4, Glucose 89, Calcium 7.8 L, Total Bilirubin 0.80, AST 18, ALT 9 L, Alkaline Phosphatase 95, Troponin I High Sens 48, Total Protein 5.7 L, Albumin 2.2 L, Globulin 3.5, Albumin/Globulin Ratio 0.6 L 06/04/22 07:43: Lactic Acid 0.9 Radiology Impression Chest X-Ray 06/04/22 08:25 IMPRESSION: No acute abnormality is seen. Electronically Signed: Donny Mariee MD at 8:40 EDT ,
--- NOTE | 2022-06-04 17:57 | EX.PCM.CON.S ---
Assessment & Plan Assessment/Plan (1) Encounter for dialysis catheter care: (2) Altered mental status: PLAN: Plan Grossly infected right IJ dialysis catheter. Discussed procedure of removal of tunneled dialysis catheter with the family. Family did sign consents patient is unresponsive. We will plan for temporary dialysis catheter placement tomorrow. Cira Strauss M.D. Pager: [phone] [facility] [address] [place] [address], [facility], [address] [place] [address] Office: [phone] HPI Consult Data Date of Consult: 06/05/22 HPI Narrative Reason for Consultation: Removal infected right IJ dialysis catheter HPI Narrative: EBONIE WOLF, is a 72 F who admitted from [facility] due to change in mental status and likely infected right IJ dialysis catheter. Patient did have cultures done at dialysis previously however overnight became nonresponsive and thus was taken to the ER. Patient is currently A&O x0 unable to answer any questions. Patient's family is at bedside. Blood cultures are pending from ER. Patient white blood cell count was 15.5 in the ER. Patient currently is on IV Vanco and Zosyn. [facility] Medical History (HFpEF) heart failure with preserved ejection fraction Anemia Anxiety Atherosclerosis of coronary artery of [place] heart without angina pectoris Bruising Cardiology follow-up encounter Cellulitis of left lower limb Chronic headaches Chronic kidney disease (CKD) Chronic ulcer of left foot with necrosis of muscle Current use of insulin Depression Diabetic foot infection Diabetic nephropathy Dietary restriction Difficulty chewing Difficulty swallowing DM (diabetes mellitus), type 2, uncontrolled DVT (deep venous thrombosis) Dyspnea Easy bruising Essential hypertension Gastric reflux History of CHF (congestive heart failure) History of echocardiogram History of edema History of heart attack History of irregular heartbeat History of leukemia History of non-ST elevation myocardial infarction (NSTEMI) (01/13/20) History of steroid therapy Hypertension Insulin dependent diabetes mellitus Irregular heartbeat Kidney calculi Left foot infection Leg cramps Low iron Malnutrition Myocardial infarction Non-smoker Open wound Paralysis Peripheral vascular disease Post-menopausal Pre-op testing Pressure ulcer Rash Renal disease Restless legs Shortness of breath on exertion Sleep apnea Status post amputation of toe of left foot Stroke Thyroid disease Thyroiditis Type 2 diabetes mellitus with diabetic foot infection Ulcer Ulcer of left foot due to type 2 diabetes mellitus Upper gastrointestinal bleeding Home Medications amlodipine 10 mg tablet 10 mg PO DAILY BP 08/07/21 [History Last Taken Unknown] aspirin 81 mg capsule 81 mg PO DAILY Heart 08/07/21 [History Last Taken Unknown] metoprolol tartrate 25 mg tablet 50 mg PO BID BP 08/07/21 [History Last Taken Unknown] atorvastatin 80 mg tablet 80 mg PO QHS Cholesterol 08/12/21 [History Last Taken Unknown] clopidogrel 75 mg tablet 75 mg PO DAILY Antiplatelet 08/12/21 [History Last Taken Unknown] polyethylene glycol 3350 17 gram oral powder packet 17 g PO DAILY Constipation 08/12/21 [History Last Taken Unknown] nystatin 100,000 unit/gram topical powder ([facility]) 1 applic topical TID redness 02/21/22 [History Last Taken Unknown] furosemide 40 mg tablet 40 mg PO BID 04/22/22 [History Last Taken Unknown] levothyroxine 125 mcg tablet 125 mcg PO DAILY 04/22/22 [History Last Taken Unknown] calcium carbonate 600 mg calcium (1,500 mg) tablet 600 mg PO BID 04/23/22 [History Last Taken Unknown] citalopram 20 mg tablet 20 mg PO DAILY 04/23/22 [History Last Taken Unknown] insulin lispro 100 unit/mL subcutaneous pen 0 unit subcut TID 04/23/22 [History Last Taken Unknown] melatonin 1 mg tablet 1 mg PO QHS 04/23/22 [History Last Taken Unknown] prednisone 10 mg tablet 5 mg PO QODAY 04/23/22 [History Last Taken Unknown] pantoprazole 40 mg tablet,delayed release 40 mg PO BID #60 tabs 04/26/22 [Rx Last Taken Unknown] doxycycline hyclate 50 mg capsule 50 cap PO 1200 05/18/22 [History Last Taken Unknown] acetaminophen 500 mg tablet 1,000 mg PO Q6H PRN pain/fever 06/04/22 [History Last Taken Unknown] bisacodyl 10 mg rectal suppository 10 mg [place] DAILY PRN Constipation 06/04/22 [History Last Taken Unknown] magnesium hydroxide 400 mg/5 mL oral suspension (Milk of Magnesia) 30 ml PO DAILY PRN Constipation 06/04/22 [History Last Taken Unknown] menthol 0.44 %-zinc oxide 20.6 % topical ointment 1 applic topical DAILY 06/04/22 [History Last Taken Unknown] ondansetron 4 mg disintegrating tablet 4 mg PO Q6H PRN Nausea 06/04/22 [History Last Taken Unknown] oxycodone 5 mg tablet 5 mg PO Q6H PRN Pain 06/04/22 [History Last Taken Unknown] triamcinolone acetonide 0.1 % topical ointment 1 applic topical BID 06/04/22 [History Last Taken Unknown] Allergy/AdvReac Type Severity Reaction Status Date / Time baclofen AdvReac Other Verified 06/04/22 07:25 Family History Mother CVA (cerebral vascular accident) Other Diabetes Heart disease Surgical History H/O coronary artery bypass surgery History of heart artery stent S/P tubal ligation Status post arterial stent Status post coronary artery bypass graft Status post coronary artery stent placement Status post hysterectomy Status post transmetatarsal amputation of left foot Social History household members: children housing: [facility] Smoking Status: Never smoker ROS Review of Systems ROS Unobtainable: due to mental status Physical Exam Const General Appearance: ill appearing Neck Neck Narrative: Redness at the Right IJ Site with a permanent suture in place Chest Chest Narrative: Continued redness down to the exit site of the right IJ dialysis catheter with purulent drainage. Resp normal respiratory effort Cardio Rate: regular rate GI soft to palpation; Negative for non-distended Extremity General Extremity: edema Skin Skin Narrative: Erythema in the right chest and IJ site. Psych Psych Narrative: Unable to assess due to mental status Lab / Micro Data Result Diagrams: 06/05/22 06:10 06/05/22 06:10 Labs: Laboratory Results - last 24 hr 06/04/22 07:34: Urine Color Yellow, Urine Clarity Sl. Cloudy, Urine pH 8.0, Ur Specific [place] 1.010, Urine Protein 500 H, Urine Glucose (UA) Normal, Urine Ketones 5 H, Urine Occult Blood 25 H, Urine Nitrite Negative, Urine Bilirubin Negative, Urine Urobilinogen Normal, Ur Leukocyte Esterase 500 H, Urine RBC 0-5 SEEN, Urine WBC 25-50 SEEN, Ur Squamous Epith Cells 0-5 SEEN, Urine Bacteria 3+, Urine Mucus 0 SEEN 06/04/22 07:43: WBC 15.5 H, RBC 2.41 L, Hgb 7.3 L, Hct 23.2 L, MCV 96.3, MCH 30.3, MCHC 31.5 L, RDW Std Deviation 56.8 H, RDW Coeff of Jenna 15.9 H, Plt Count 178, MPV 9.8, Immature Gran % (Auto) 0.900, Neut % (Auto) 88.3 H, Lymph % (Auto) 4.6 L, [place] % (Auto) 5.8, Eos % (Auto) 0.1, Baso % (Auto) 0.3, Absolute Neuts (auto) 13.7 H, Absolute Lymphs (auto) 0.71 L, Nucleated RBC % 0.1 06/04/22 07:43: PT 14.6, INR 1.2, APTT 41.3 H 06/04/22 07:43: Sodium 129 L, Potassium 3.7, Chloride 92 L, Carbon Dioxide 30.0, Anion Gap 7, BUN 35 H, Creatinine 2.28 H, Estim Creat Clear Calc 19.26, Est GFR (MDRD) Af Amer 27 L, Est GFR (MDRD) Non-Af 22 L, BUN/Creatinine Ratio 15.4, Glucose 89, Calcium 7.8 L, Total Bilirubin 0.80, AST 18, ALT 9 L, Alkaline Phosphatase 95, Troponin I High Sens 48, Total Protein 5.7 L, Albumin 2.2 L, Globulin 3.5, Albumin/Globulin Ratio 0.6 L 06/04/22 07:43: Lactic Acid 0.9 Radiology Impression Chest X-Ray 06/04/22 08:25 IMPRESSION: No acute abnormality is seen. Electronically Signed: Donny Mariee MD at 8:40 EDT , Charges/Coding Visit Charges Inpatient E&M: 12141 Init Hosp L3
--- NOTE | 2022-06-04 18:31 | OP.PCM_ITS ---
Report of Operation Date of Procedure: 06/04/22 Pre-Operative Diagnosis: Infected tunneled dialysis catheter, altered mental st atus Post-Operative Diagnosis: Same Surgery/Procedure Performed:: Removal of infected right IJ tunneled dialysis catheter Surgeon: Cira Strauss Type of Anesthesia: Local Specimen's removed: Sent the tip of the catheter for culture Description of Procedure: Consent was obtained by the family as patient is nonresponsive. The right IJ catheter/chest was prepped with Betadine. Local anesthesia of 1% lidocaine was used at the site of the catheter. The exit site was enlarged slightly to allow hemostat to free of the cuff. There is purulent drainage. The catheter was easily removed with traction. Pressure was held at the right IJ site for 15 minutes. The catheter tract was irrigated with saline. Pressure dressing placed at the right IJ site for the 15 minutes as well as a 4 x 4 at the catheter exit site. Complications none
--- NOTE | 2022-06-04 21:29 | PCM.HOSP.N ---
Hospitalist Note Patient diabetic history and noted to be hypoglycemic. NPO status given encephalopathy. Will start D5NS and will closely monitor accu checks, broaden accu checks once assure BS improved.
[2022-06-04] MEDS: Dextrose 5%/0.9% NaCl 1,000 ML 100 ML IV (21:37)
[2022-06-04 23:40] LABS: Bedside Glucose 62 mg/dL (74-106)
[2022-06-04 23:40] LABS: Bedside Glucose 83 mg/dL (74-106)
[2022-06-05] VITALS (16 sets, daily range): BP systolic 106–158; BP diastolic 44–76; PULSE 56–78; RESP 16–20; TEMP 36.3–37.4; O2SAT 96–100
[2022-06-05] MEDS: Acetaminophen 650 MG Suppository RC ×2 (03:19→09:04)
[2022-06-05 03:46] LABS: Bedside Glucose 93 mg/dL (74-106)
[2022-06-05 03:46] LABS: Bedside Glucose 84 mg/dL (74-106)
[2022-06-05] MEDS: Dextrose 5%/0.9% NaCl 1,000 ML 100 ML IV (06:21)
[2022-06-05 07:21] LABS: Absolute Lymphocyte Count 0.89 X10^3/uL (0.83-4.51); Basophil# 0.03 X10^3/uL; Basophil% 0.2 % (0-1); Eosinophil# 0.07 X10^3/uL; Eosinophils% 0.5 % (0-5); Hematocrit 19.7 % (37-47); Hemoglobin 6.3 g/dL (12.0-15.0); Lymphocyte # 0.89 X10^3/ul (0.83-4.51); Lymphocyte % 6.6 % (19-41); Mean Platelet Vol. 10.2 fl (6.2-12.0); Monocyte# 1.32 X10^3/uL; Monocyte% 9.8 % (0-10); NRBC Flagged by Analyzer 0 % (0-5); Neutrophil # 11.01 X10^3/uL (2.7-7.7); Neutrophil % 81.8 % (47-70); Platelet Count 144 K/mm3 (150-450); RBC Distribution Width CV 15.7 % (11.6-14.6); RBC Distribution Width SD 55.7 fl (35.1-43.9); Red Blood Count 2.03 M/mm3 (4.2-5.4); White Blood Count 13.5 K/mm3 (4.4-11.0)
[2022-06-05 07:44] LABS: Anion Gap 7 (5-15); BUN 41 mg/dL (7-18); Calcium,Total 7.6 mg/dL (8.5-10.1); Chloride 96 mmol/L (98-107); Creatinine, Serum 2.57 mg/dL (0.55-1.02); EST Glomerular Filtration Rate 20 mL/min (>60); Est Glom Filt Rate - Afr Amer 24 mL/min (>60); Estimated Creatinine Clearance 16.37 ml/min; Glucose 104 mg/dL (74-106); Potassium 3.4 mmol/L (3.5-5.1); Sodium Level 131 mmol/L (136-145)
[2022-06-05 07:46] LABS: Bedside Glucose 121 mg/dL (74-106)
--- NOTE | 2022-06-05 07:52 | ECHOL_ITS ---
Reason For Study: Staph Bacteremia, Assess for vegetations Procedure This was a limited 2D transthoracic echocardiogram. Exam performed portable in patient room. Left Ventricle The estimated ejection fraction is 60 %. No evidence for diastolic dysfunction. No regional wall motion abnormalities noted. Right Ventricle Normal RV size. Normal systolic function. Atria The left atrium is mildly enlarged. Normal right atrium. No doppler evidence for ASD. Mitral Valve There is moderate mitral annular calcification. There is no mitral valve stenosis. Trivial mitral valve insufficiency. Tricuspid Valve There is no tricuspid stenosis. Mild tricuspid valve insufficiency. Pulmonary artery systolic pressure is 35 mmHg. Aortic Valve Trisinus/trileaflet aortic valve. There is no aortic stenosis. Mild-Moderate (1-2+) aortic valve insufficiency. Pulmonic Valve There is no pulmonic valvular stenosis. Mild (1+) pulmonic valve insufficiency. Great Vessels Normal aortic root. Pericardium/Pleural No pericardial effusion. MMode/2D Measurements & Calculations LVIDd: 4.9 cm IVSd: 1.1 cm LVIDs: 3.0 cm LVPWd: 1.2 cm FS: 39.1 % Doppler Measurements & Calculations TR max ismael: 279.0 cm/sec TR max P.1 mmHg ECHO/Echo, Limited Study Interpretation Summary The estimated ejection fraction is 60 %. No evidence for diastolic dysfunction. The left atrium is mildly enlarged. Mild-Moderate (1-2+) aortic valve insufficiency. Ordering Physician: Dalia Zhao Referring Physician: Jonh Solis Performed By: Fatmata Abarca, YENI, RVT
--- NOTE | 2022-06-05 08:51 | CASEMGMT ---
Discharge Screed Operator Tamanna wilburn/[place] emergency veterinary assistant sent over update on patient to Lori at [place]. Tamanna Narayanan Discharge Screed Operator
[2022-06-05 09:16] LABS: Bedside Glucose 104 mg/dL (74-106)
[2022-06-05 09:57] LABS: Vancomycin, Random Level 21.1 ug/mL (0.0-15.0)
--- NOTE | 2022-06-05 10:17 | PN.SURG_ITS ---
Subjective Subjective Patient is alert and awake. Patient does complain of body aches in her neck and arms. Objective Data Objective Data Vital Signs: Vital Signs Temp Pulse Resp BP Pulse Ox O2 Del Method 98.6 F 65 20 H 106/44 L 100 Room Air 06/05/22 08:43 06/05/22 08:43 06/05/22 08:43 06/05/22 08:43 06/05/22 08:43 06/05/22 08:43 Oxygen Delivery Method Room Air Weight: 192 lb 14.472 oz Body Mass Index (BMI) 34.2 Intake & Output: Intake and Output for Last 24 Hours 06/03/22 06/04/22 06/05/22 23:59 23:59 23:59 Intake Total 640 / 640 1235.63 / 1235.63 Output Total 150 / 300 200 / 200 Balance 490 / 340 1035.63 / 1035.63 Lab / Micro Data Result Diagrams: 06/05/22 06:10 06/05/22 06:10 Labs: Laboratory Results - last 24 hr 06/04/22 21:20: POC Glucose 62 L 06/04/22 23:19: POC Glucose 83 06/05/22 01:27: POC Glucose 84 06/05/22 03:16: POC Glucose 93 06/05/22 05:22: POC Glucose 104 06/05/22 06:10: WBC 13.5 H, RBC 2.03 L, Hgb 6.3 L, Hct 19.7 L, MCV 97.0, MCH 31.0, MCHC 32.0, RDW Std Deviation 55.7 H, RDW Coeff of Jenna 15.7 H, Plt Count 144 L, MPV 10.2, Immature Gran % (Auto) 1.100 H, Neut % (Auto) 81.8 H, Lymph % (Auto) 6.6 L, [place] % (Auto) 9.8, Eos % (Auto) 0.5, Baso % (Auto) 0.2, Absolute Neuts (auto) 11.0 H, Absolute Lymphs (auto) 0.89, Nucleated RBC % 0 06/05/22 06:10: Sodium 131 L, Potassium 3.4 L, Chloride 96 L, Carbon Dioxide 28.0, Anion Gap 7, BUN 41 H, Creatinine 2.57 H, Estim Creat Clear Calc 16.37, Est GFR (MDRD) Af Amer 24 L, Est GFR (MDRD) Non-Af 20 L, BUN/Creatinine Ratio 16.0, Glucose 104, Calcium 7.6 L 06/05/22 07:24: POC Glucose 121 H 06/05/22 08:45: Random Vancomycin 21.1 H 06/05/22 08:45: Crossmatch See Detail Micro: Microbiology 06/04/22 18:15 Other - Dialysis/Fistula Gram Stain - Final 06/04/22 07:34 Blood Culture (Wb) - Anticubital Right Bacteria Detection (PCR) - Final Staphylococcus aureus mecA Resistance Marker 06/04/22 07:34 Blood Culture (Wb) - Anticubital Right Blood Culture - Preliminary Physical Exam Narrative Patient's right chest dressings in place clean dry and intact. Erythema improved. Const Constitutional Narrative: Awake and alert Resp normal respiratory effort Cardio regular rate Assessment & Plan Assessment/Plan (1) Encounter for dialysis catheter care: PLAN: Plan We will plan to place temporary dialysis catheter at bedside. Likely plan for tunneled catheter June 09, as I am not here June 08. Patient is unable to be done due to blood cultures can also do it after that time. Cira Strauss M.D. Pager: [phone] [facility] [address] [place] [address], [facility], [address] [place] [id number] Office: [phone] Charges/Coding Visit Charges Inpatient E&M: 27994 Subs Hosp L2
--- NOTE | 2022-06-05 10:24 | PCM.RX.CS ---
Consult Pharmacy has been consulted to manage selected antiobiotic: Vancomycin Type of Consult: Follow-up Suspected Infection: Bacteremia Prior Doses of Antibiotics Received/Current Regimen: Received 2000mg iv x 1 on 06.04.22. Labs: Sodium 131 mmol/L (136-145) L 06/05/22 06:10 Potassium 3.4 mmol/L (3.5-5.1) L 06/05/22 06:10 Chloride 96 mmol/L (98-107) L 06/05/22 06:10 Carbon Dioxide 28.0 mmol/L (21.0-32.0) 06/05/22 06:10 Anion Gap 7 (5-15) 06/05/22 06:10 BUN 41 mg/dL (7-18) H 06/05/22 06:10 Creatinine 2.57 mg/dL (0.55-1.02) H 06/05/22 06:10 Est GFR (MDRD) Af Amer 24 mL/min (>60) L 06/05/22 06:10 Est GFR (MDRD) Non-Af 20 mL/min (>60) L 06/05/22 06:10 BUN/Creatinine Ratio 16.0 RATIO (10-20) 06/05/22 06:10 Glucose 104 mg/dL (74-106) 06/05/22 06:10 Random Vancomycin 21.1 ug/mL (0.0-15.0) H 06/05/22 08:45 Microbiology: Microbiology 06/04/22 18:15 Other - Dialysis/Fistula Gram Stain - Final 06/04/22 07:34 Blood Culture (Wb) - Anticubital Right Bacteria Detection (PCR) - Final Staphylococcus aureus mecA Resistance Marker 06/04/22 07:34 Blood Culture (Wb) - Anticubital Right Blood Culture - Preliminary Weight used for dosin.5 kg Estimated Creatinine Clearance: ~25ml/min Goal Trough: 15-20 mcg/mL Pharmacy Plan for Drug Dosing: Trough level today 21.1. Cr 2.57 with calculated CrCl ~25ml/min using adjusted body weight. Have ordered a random level for 06.06.22 in AM. Pharmacy Service will continue to monitor and adjust dosing as required. Follow-Up Labs: Trough Vancomycin - 06.06.22 @0900 random level
--- NOTE | 2022-06-05 11:16 | PN.HOSP_ITS ---
Subjective Subjective Patient seen and examined. She was more alert today, but remained confused. She was moaning and crying because of pain. She said she had a headache. Unable to do comprehensive review of systems o/a of confusion. BLood cultures came back positive for Staph aureus. She had her dialysis catheter pulled by general surg richard yesterday. She is due for insertion of a temporary dialysis catheter today. She has remained hemodynamically stable. Objective Data Objective Data Vital Signs: Vital Signs Temp Pulse Resp BP Pulse Ox O2 Del Method 98.6 F 65 20 H 106/44 L 100 Room Air 06/05/22 08:43 06/05/22 08:43 06/05/22 08:43 06/05/22 08:43 06/05/22 08:43 06/05/22 08:43 Oxygen Delivery Method Room Air Weight: 192 lb 14.472 oz Body Mass Index (BMI) 34.2 Intake & Output: Intake and Output for Last 24 Hours 06/03/22 06/04/22 06/05/22 23:59 23:59 23:59 Intake Total 640 / 640 1345.63 / 1345.63 Output Total 150 / 300 200 / 200 Balance 490 / 340 1145.63 / 1145.63 Lab / Micro Data Result Diagrams: 06/05/22 06:10 06/05/22 06:10 Labs: Laboratory Results - last 24 hr 06/04/22 21:20: POC Glucose 62 L 06/04/22 23:19: POC Glucose 83 06/05/22 01:27: POC Glucose 84 06/05/22 03:16: POC Glucose 93 06/05/22 05:22: POC Glucose 104 06/05/22 06:10: WBC 13.5 H, RBC 2.03 L, Hgb 6.3 L, Hct 19.7 L, MCV 97.0, MCH 31.0, MCHC 32.0, RDW Std Deviation 55.7 H, RDW Coeff of Jenna 15.7 H, Plt Count 144 L, MPV 10.2, Immature Gran % (Auto) 1.100 H, Neut % (Auto) 81.8 H, Lymph % (Auto) 6.6 L, [place] % (Auto) 9.8, Eos % (Auto) 0.5, Baso % (Auto) 0.2, Absolute Neuts (auto) 11.0 H, Absolute Lymphs (auto) 0.89, Nucleated RBC % 0 06/05/22 06:10: Sodium 131 L, Potassium 3.4 L, Chloride 96 L, Carbon Dioxide 28.0, Anion Gap 7, BUN 41 H, Creatinine 2.57 H, Estim Creat Clear Calc 16.37, Est GFR (MDRD) Af Amer 24 L, Est GFR (MDRD) Non-Af 20 L, BUN/Creatinine Ratio 16.0, Glucose 104, Calcium 7.6 L 06/05/22 07:24: POC Glucose 121 H 06/05/22 08:45: Random Vancomycin 21.1 H 06/05/22 08:45: Crossmatch See Detail Micro: Microbiology 06/04/22 07:34 Urine Catheter - Ryan Urine Culture - Preliminary Gram negative raj 06/04/22 18:15 Other - Dialysis/Fistula Gram Stain - Final 06/04/22 07:34 Blood Culture (Wb) - Anticubital Right Bacteria Detection (PCR) - Final Staphylococcus aureus mecA Resistance Marker 06/04/22 07:34 Blood Culture (Wb) - Anticubital Right Blood Culture - Preliminary Physical Exam Const alert Orientation / Consciousness: confused and disoriented HEENT normocephalic and head/scalp atraumatic Mouth: oral and palatal mucosa normal Eyes PERRL and EOMs intact bilaterally Neck no lymphadenopathy Resp Resp Narrative: diminished breath sounds bibasally, no wheezes or crackles. on room air. Cardio regular rate, regular rhythm, S1 normal heart sound, S2 normal heart sound and no murmurs GI normal to inspection, nondistended, normoactive bowel sounds, soft to palpation, non-tender and non-distended Extremity normal to inspection, full ROM and no clubbing, cyanosis or edema Skin Skin Narrative: dialysis catheter removed; intact dressing over site Neuro Neuro Narrative: confused, Sensorium / Orientation: awake and alert Psych Psych Narrative: anxious, confused Assessment & Plan Assessment/Plan (1) Altered mental status: (2) Urinary tract infection: PLAN: Plan #Acute metabolic encephalopathy * due to infected dialysis catheter and UTI * blood cultures positive for Staph aureus * urinalysis showed 3+ bacteria. Urine culture pending * on IV vancomycin and zosyn * ID consulted; await rec's * dialysis catheter removed. * * #Staph aureus bacteremia due to line sepsis * blood cultures positive for Staph aureus * per nephrology, patient also had pus from the dialysis line site which cultured staph aureus * on IV vancomycin and zosyn * 2D echo ordered * #ESRD on HD * nephrology consulted * dialysis catheter removed * for temporary dialysis catheter insertion by general surgery * #Hyponatremia * Na is 131 tpdau. 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 Couldnt have colonoscopy as she couldnt tolerate the prep * Baseline is ~ 7-8. * will switch to IV pantoprazole 40mg bid * transfuse with 2 units of pRBCs * check stool for occult blood * for GI consult when she is more stable * Will monitor #TYpe 2 diabetes mellitus: hold insulin lantus due to encephalopathy. ISS. Accuchecks ACHS #Hyperlipidemia: On statin #History of heart failure preserved ejection fraction: On Lasix. Not in exacerbation #History of CAD s/p CABG: On aspirin and Plavix as well as high intensity statin #Depression: On citalopram DVT prophylaxis: Lovenox renally dosed CODE STATUS: Full code * Charges/Coding Visit Charges Inpatient E&M: 87163 Subs Hosp L3
--- NOTE | 2022-06-05 11:19 | OP.PCM_ITS ---
Report of Operation Date of Procedure: 06/05/22 Pre-Operative Diagnosis: Need for IV access for dialysis, chronic kidney disease Post-Operative Diagnosis: Same Surgery/Procedure Performed:: Placement of left IJ temporary dialysis catheter Surgeon: Cira Strauss Type of Anesthesia: Local Estimated Blood Loss (mL): Minimal Description of Procedure: Procedure: A time-out was completed to verify correct patient, indication, medication allergies, procedure, coagulation studies, informed consent signed, and equipment needed. The patient was placed in the supine position for a central line placement to the left IJ vein. The patients left neck was prepped using chlorhexidine and a full body sterile drape was applied. 1% lidocaine was used to anesthetize the surrounding skin. A Mahurkar Elite 12 Mong[place]ian x20 cm (ref [id number] lot [id number]) Temporary hemodialysis catheter introduced into the internal jugular vein using the modified Seldinger technique with the assistance of ultrasound. The site was dilated up twice in a stepwise fashion. The catheter was threaded smoothly over the guidewire, the guidewire was removed easily, nonpulsatile blood returned. Al l ports were aspirated of air and flushed with sterile saline Then flushed with 1:10,000 heparin 1.4 mL to each port. The catheter was sutured in place and covered with an OpSite dressing. Chest x-ray was ordered. Patient tolerated procedure well. Grafts/Implants Used: Mahurkar Elite 12 [place]ian x20 cm (ref [id number] lot [id number]) Temporary Complications none
--- NOTE | 2022-06-05 11:28 | WOUNDNOTE ---
wound photo: left posterior lower leg
--- NOTE | 2022-06-05 11:35 | RAD_ITS ---
STUDY: X-RAY CHEST REASON FOR EXAM: Female, 72 years old. HD cath placement TECHNIQUE: Single AP portable view of the chest. COMPARISON: Comparison is made with prior study dated 06/04/2022. FINDINGS: The right-sided double-lumen catheter has been removed. A left internal jugular venous catheter has been placed with tip in the right atrium. EKG electrodes are seen. Surgical clips are seen in the region of the thyroid gland. The lungs are clear and expanded. There is no demonstrated pleural abnormality. Sternal cerclage wires and vascular clips are present from a prior sternotomy and coronary artery bypass graft procedure (CABG). Normal mediastinum and emma. Normal visualized pulmonary arteries. There is atherosclerotic tortuosity of the aortic arch and descending thoracic aorta. Normal visualized thoracic spine. Normal visualized ribs, clavicles, and shoulders. There is no demonstrated abnormality of the visualized soft tissue structures of the upper abdomen. RAD/Chest 1 View (Portable) IMPRESSION: Removal of the right double-lumen catheter with replacement of a left sided internal jugular venous catheter with the tip in the right atrium. Electronically Signed: Donny Mariee MD at 12:23 EDT ,
[2022-06-05 12:25] LABS: Bedside Glucose 108 mg/dL (74-106)
--- NOTE | 2022-06-05 12:39 | PN.RENAL_ITS ---
Subjective Subjective more responsive today, remains debilitated, weak, slow to respond Objective Data Objective Data Vital Signs: Vital Signs Temp Pulse Resp BP Pulse Ox O2 Del Method 98.6 F 65 20 H 106/44 L 100 Room Air 06/05/22 08:43 06/05/22 08:43 06/05/22 08:43 06/05/22 08:43 06/05/22 08:43 06/05/22 08:43 Oxygen Delivery Method Room Air Weight: 87.5 kg Body Mass Index (BMI) 34.2 Intake & Output: Intake and Output for Last 24 Hours 06/03/22 06/04/22 06/05/22 23:59 23:59 23:59 Intake Total 640 / 640 1345.63 / 1345.63 Output Total 150 / 300 200 / 200 Balance 490 / 340 1145.63 / 1145.63 Lab / Micro Data Result Diagrams: 06/05/22 06:10 06/05/22 06:10 Labs: Laboratory Results - last 24 hr 06/04/22 21:20: POC Glucose 62 L 06/04/22 23:19: POC Glucose 83 06/05/22 01:27: POC Glucose 84 06/05/22 03:16: POC Glucose 93 06/05/22 05:22: POC Glucose 104 06/05/22 06:10: WBC 13.5 H, RBC 2.03 L, Hgb 6.3 L, Hct 19.7 L, MCV 97.0, MCH 31.0, MCHC 32.0, RDW Std Deviation 55.7 H, RDW Coeff of Jenna 15.7 H, Plt Count 144 L, MPV 10.2, Immature Gran % (Auto) 1.100 H, Neut % (Auto) 81.8 H, Lymph % (Auto) 6.6 L, [place] % (Auto) 9.8, Eos % (Auto) 0.5, Baso % (Auto) 0.2, Absolute Neuts (auto) 11.0 H, Absolute Lymphs (auto) 0.89, Nucleated RBC % 0 06/05/22 06:10: Sodium 131 L, Potassium 3.4 L, Chloride 96 L, Carbon Dioxide 28.0, Anion Gap 7, BUN 41 H, Creatinine 2.57 H, Estim Creat Clear Calc 16.37, Est GFR (MDRD) Af Amer 24 L, Est GFR (MDRD) Non-Af 20 L, BUN/Creatinine Ratio 16.0, Glucose 104, Calcium 7.6 L 06/05/22 07:24: POC Glucose 121 H 06/05/22 08:45: Random Vancomycin 21.1 H 06/05/22 08:45: Blood Type AB POSITIVE, Antibody Screen NEGATIVE, Crossmatch See Detail 06/05/22 12:06: POC Glucose 108 H Micro: Microbiology 06/04/22 07:34 Urine Catheter - Ryan Urine Culture - Preliminary Gram negative raj 06/04/22 18:15 Other - Dialysis/Fistula Gram Stain - Final 06/04/22 07:34 Blood Culture (Wb) - Anticubital Right Bacteria Detection (PCR) - Final Staphylococcus aureus mecA Resistance Marker 06/04/22 07:34 Blood Culture (Wb) - Anticubital Right Blood Culture - Preliminary Radiography Diagnostic Testing: Radiology Impression Chest X-Ray 06/05/22 11:35 IMPRESSION: Removal of the right double-lumen catheter with replacement of a left sided internal jugular venous catheter with the tip in the right atrium. Electronically Signed: Donny Mariee MD at 12:23 EDT , Physical Exam Const alert Nutritional Appearance: morbidly obese Resp clear to auscultation bilaterally Cardio regular rate GI non-tender and non-distended Auscultation: normoactive bowel sounds Palpation: soft Bladder / Kidney Exam: catheter in place urethral (dark carmella, scant urine) Back/Spine Back/Spine Narrative: debilitated Extremity General Extremity: edema bilateral Neuro Sensorium / Orientation: awake Assessment & Plan Assessment/Plan (1) Altered mental status: PLAN: due to sepsis, improved on lasix (2) ESRD (end stage renal disease) on dialysis: PLAN: on dialysis today with temp catheter (3) Sepsis: PLAN: tunneled catheter removal for sepsis. ID consulted. (4) Anasarca: PLAN: improved with dialysis (5) PAOD (peripheral arterial occlusive disease): (6) Anemia: PLAN: 2u prbc on dialysis (7) Debility: PLAN: full assist, ECF pt
--- NOTE | 2022-06-05 14:17 | PCM.CONS.GEN ---
Assessment & Plan Assessment/Plan (1) ESRD (end stage renal disease) on dialysis: (2) CRBSI (catheter-related bloodstream infection): PLAN: Bcx with MRSA per pcr. Cont vanc. ucx with GNR. Will cont zosyn for now. Permacath removed 06/04. Will check echo and repeat bcxs. Daughter reports up to date on covid booster. Will follow, thank you HPI Consult Data Date of Consult: 06/05/22 HPI Narrative Reason for Consultation: bacteremia HPI Narrative: EBONIE WOLF, is a 72 F who presented 06/04 with 2 days of progressive encephalopathy, R neck pain/swelling at site of permacath, fever/rigors. On HD TuThSat. Cxs sent from dialysis 06/02, came back (+). Admitted from ED on vanc/zosyn. Line removed, temp line placed, HD today. Daughter at bedside provided history. Full ROS performed and neg except as noted above. [facility] Medical History (HFpEF) heart failure with preserved ejection fraction Anemia Anxiety Atherosclerosis of coronary artery of [place] heart without angina pectoris Bruising Cardiology follow-up encounter Cellulitis of left lower limb Chronic headaches Chronic kidney disease (CKD) Chronic ulcer of left foot with necrosis of muscle Current use of insulin Depression Diabetic foot infection Diabetic nephropathy Dietary restriction Difficulty chewing Difficulty swallowing DM (diabetes mellitus), type 2, uncontrolled DVT (deep venous thrombosis) Dyspnea Easy bruising Essential hypertension Gastric reflux History of CHF (congestive heart failure) History of echocardiogram History of edema History of heart attack History of irregular heartbeat History of leukemia History of non-ST elevation myocardial infarction (NSTEMI) (01/13/20) History of steroid therapy Hypertension Insulin dependent diabetes mellitus Irregular heartbeat Kidney calculi Left foot infection Leg cramps Low iron Malnutrition Myocardial infarction Non-smoker Open wound Paralysis Peripheral vascular disease Post-menopausal Pre-op testing Pressure ulcer Rash Renal disease Restless legs Shortness of breath on exertion Sleep apnea Status post amputation of toe of left foot Stroke Thyroid disease Thyroiditis Type 2 diabetes mellitus with diabetic foot infection Ulcer Ulcer of left foot due to type 2 diabetes mellitus Upper gastrointestinal bleeding Home Medications amlodipine 10 mg tablet 10 mg PO DAILY BP 08/07/21 [History Last Taken Unknown] aspirin 81 mg capsule 81 mg PO DAILY Heart 08/07/21 [History Last Taken Unknown] metoprolol tartrate 25 mg tablet 50 mg PO BID BP 08/07/21 [History Last Taken Unknown] atorvastatin 80 mg tablet 80 mg PO QHS Cholesterol 08/12/21 [History Last Taken Unknown] clopidogrel 75 mg tablet 75 mg PO DAILY Antiplatelet 08/12/21 [History Last Taken Unknown] polyethylene glycol 3350 17 gram oral powder packet 17 g PO DAILY Constipation 08/12/21 [History Last Taken Unknown] nystatin 100,000 unit/gram topical powder (Nyamyc) 1 applic topical TID redness 02/21/22 [History Last Taken Unknown] furosemide 40 mg tablet 40 mg PO BID 04/22/22 [History Last Taken Unknown] levothyroxine 125 mcg tablet 125 mcg PO DAILY 04/22/22 [History Last Taken Unknown] calcium carbonate 600 mg calcium (1,500 mg) tablet 600 mg PO BID 04/23/22 [History Last Taken Unknown] citalopram 20 mg tablet 20 mg PO DAILY 04/23/22 [History Last Taken Unknown] insulin lispro 100 unit/mL subcutaneous pen 0 unit subcut TID 04/23/22 [History Last Taken Unknown] melatonin 1 mg tablet 1 mg PO QHS 04/23/22 [History Last Taken Unknown] prednisone 10 mg tablet 5 mg PO QODAY 04/23/22 [History Last Taken Unknown] pantoprazole 40 mg tablet,delayed release 40 mg PO BID #60 tabs 04/26/22 [Rx Last Taken Unknown] doxycycline hyclate 50 mg capsule 50 cap PO 1200 05/18/22 [History Last Taken Unknown] acetaminophen 500 mg tablet 1,000 mg PO Q6H PRN pain/fever 06/04/22 [History Last Taken Unknown] bisacodyl 10 mg rectal suppository 10 mg [place] DAILY PRN Constipation 06/04/22 [History Last Taken Unknown] magnesium hydroxide 400 mg/5 mL oral suspension (Milk of Magnesia) 30 ml PO DAILY PRN Constipation 06/04/22 [History Last Taken Unknown] menthol 0.44 %-zinc oxide 20.6 % topical ointment 1 applic topical DAILY 06/04/22 [History Last Taken Unknown] ondansetron 4 mg disintegrating tablet 4 mg PO Q6H PRN Nausea 06/04/22 [History Last Taken Unknown] oxycodone 5 mg tablet 5 mg PO Q6H PRN Pain 06/04/22 [History Last Taken Unknown] triamcinolone acetonide 0.1 % topical ointment 1 applic topical BID 06/04/22 [History Last Taken Unknown] Allergy/AdvReac Type Severity Reaction Status Date / Time baclofen AdvReac Other Verified 06/04/22 07:25 Family History Mother CVA (cerebral vascular accident) Other Diabetes Heart disease Surgical History H/O coronary artery bypass surgery History of heart artery stent S/P tubal ligation Status post arterial stent Status post coronary artery bypass graft Status post coronary artery stent placement Status post hysterectomy Status post transmetatarsal amputation of left foot Social History household members: children housing: halfway Smoking Status: Never smoker Physical Exam Const no apparent distress General Appearance: cooperative and lethargic HEENT normocephalic and head/scalp atraumatic Eyes PERRL and EOMs intact bilaterally Neck supple and No nodes Resp normal air movement and clear to auscultation bilaterally Cardio regular rate and regular rhythm Heart Sounds: murmur GI soft to palpation, non-tender and non-distended Extremity General Extremity: edema and no tenderness to palpation of joints or extremities Skin no rashes or lesions noted Skin Narrative: no splinter hemorrhages on hands or feet Neuro CN's II-XII intact bilaterally Lab / Micro Data Attestation: I reviewed the patient's lab results. Result Diagrams: 06/05/22 06:10 06/05/22 06:10 Labs: Laboratory Results - last 24 hr 06/04/22 21:20: POC Glucose 62 L 06/04/22 23:19: POC Glucose 83 06/05/22 01:27: POC Glucose 84 06/05/22 03:16: POC Glucose 93 06/05/22 05:22: POC Glucose 104 06/05/22 06:10: WBC 13.5 H, RBC 2.03 L, Hgb 6.3 L, Hct 19.7 L, MCV 97.0, MCH 31.0, MCHC 32.0, RDW Std Deviation 55.7 H, RDW Coeff of Jenna 15.7 H, Plt Count 144 L, MPV 10.2, Immature Gran % (Auto) 1.100 H, Neut % (Auto) 81.8 H, Lymph % (Auto) 6.6 L, [place] % (Auto) 9.8, Eos % (Auto) 0.5, Baso % (Auto) 0.2, Absolute Neuts (auto) 11.0 H, Absolute Lymphs (auto) 0.89, Nucleated RBC % 0 06/05/22 06:10: Sodium 131 L, Potassium 3.4 L, Chloride 96 L, Carbon Dioxide 28.0, Anion Gap 7, BUN 41 H, Creatinine 2.57 H, Estim Creat Clear Calc 16.37, Est GFR (MDRD) Af Amer 24 L, Est GFR (MDRD) Non-Af 20 L, BUN/Creatinine Ratio 16.0, Glucose 104, Calcium 7.6 L 06/05/22 07:24: POC Glucose 121 H 06/05/22 08:45: Random Vancomycin 21.1 H 06/05/22 08:45: Blood Type AB POSITIVE, Antibody Screen NEGATIVE, Crossmatch See Detail 06/05/22 12:06: POC Glucose 108 H Micro: Microbiology 06/04/22 07:34 Urine Catheter - Ryan Urine Culture - Preliminary Gram negative raj 06/04/22 18:15 Other - Dialysis/Fistula Gram Stain - Final 06/04/22 07:34 Blood Culture (Wb) - Anticubital Right Bacteria Detection (PCR) - Final Staphylococcus aureus mecA Resistance Marker 06/04/22 07:34 Blood Culture (Wb) - Anticubital Right Blood Culture - Preliminary Radiology Impression Chest X-Ray 06/05/22 11:35 IMPRESSION: Removal of the right double-lumen catheter with replacement of a left sided internal jugular venous catheter with the tip in the right atrium. Electronically Signed: Donny Mariee MD at 12:23 EDT ,
--- NOTE | 2022-06-05 15:18 | CASEMGMT ---
Patient will need insurance authorization prior to discharge. Anna Hernandez [employer]
[2022-06-05] MEDS: Heparin 10,000 UNITS/10 ML Vial 2800 UNITS IV (16:52)
--- NOTE | 2022-06-05 17:39 | DIALYSIS ---
HD x 4 hours complete. Tolerated tx well. Ran on 3k bath. UF of 1500ml. Used Temporary Left IJ dialysis catheter. Lumens closed with heparin per fill volume. Caps placed. Dressing is dry and intact. Pt received 2 units of PRBC's during tx. See tx sheet for more details. Report was given to DELIA Adhikari.
[2022-06-05 17:41] LABS: Bedside Glucose 106 mg/dL (74-106)
[2022-06-05] MEDS: Acetaminophen 325 MG Tablet 650 MG PO (17:42)
[2022-06-05] MEDS: Aspirin 81 MG TAB.CHEW PO (17:44)
[2022-06-05] MEDS: Citalopram 20 MG Tablet PO (17:45)
[2022-06-05] MEDS: Clopidogrel Bisulfate 75 MG Tablet PO (17:45)
[2022-06-05] MEDS: amLODIPine 10 MG Tablet PO (17:45)
[2022-06-05] MEDS: Juven (unflavored) Packet 1 PACKET PO (17:46)
[2022-06-05] MEDS: Polyethylene Glycol 3350 17 GM PACKET PO (17:46)
[2022-06-05 19:25] LABS: Hematocrit 28.9 % (37-47); Hemoglobin 9.6 g/dL (12.0-15.0); POSITIVE COUNT YES
[2022-06-05] MEDS: MELATONIN 3 MG TABLET PO (22:01)
[2022-06-05] MEDS: Calcium Carbonate 500 MG Tablet PO (22:01)
[2022-06-05] MEDS: Atorvastatin Calcium 80 MG Tablet PO (22:01)
[2022-06-05] MEDS: Metoprolol Tartrate 50 MG Tablet PO (22:01)
[2022-06-05 23:15] LABS: Bedside Glucose 188 mg/dL (74-106)
[2022-06-06] VITALS (13 sets, daily range): BP systolic 113–162; BP diastolic 47–73; PULSE 56–64; RESP 16–18; TEMP 36.2–37.2; O2SAT 97–100
[2022-06-06] MEDS: Acetaminophen 325 MG Tablet 650 MG PO ×2 (03:17→13:41)
[2022-06-06] MEDS: Levothyroxine 125 MCG Tablet PO (03:17)
[2022-06-06 07:15] LABS: Bedside Glucose 144 mg/dL (74-106)
[2022-06-06 07:53] LABS: Hematocrit 27.5 % (37-47); Hemoglobin 9.2 g/dL (12.0-15.0); Mean Corp Hgb Conc 33.5 g/dL (32-36); Mean Corpuscular Hgb 29.9 pg (27.0-32.0); Mean Corpuscular Volume 89.3 fL (81-99); Mean Platelet Vol. 9.9 fl (6.2-12.0); POSITIVE COUNT YES; POSITIVE MORPHOLOGY YES; Platelet Count 135 K/mm3 (150-450); RBC Distribution Width CV 17.1 % (11.6-14.6); RBC Distribution Width SD 55.7 fl (35.1-43.9); Red Blood Count 3.08 M/mm3 (4.2-5.4); White Blood Count 12.8 K/mm3 (4.4-11.0)
[2022-06-06 08:00] LABS: Differential Indicated MANUAL DIFF
[2022-06-06 08:12] LABS: Anion Gap 6 (5-15); BUN 23 mg/dL (7-18); Calcium,Total 7.8 mg/dL (8.5-10.1); Chloride 100 mmol/L (98-107); Creatinine, Serum 1.64 mg/dL (0.55-1.02); EST Glomerular Filtration Rate 33 mL/min (>60); Est Glom Filt Rate - Afr Amer 40 mL/min (>60); Estimated Creatinine Clearance 25.65 ml/min; Glucose 140 mg/dL (74-106); Potassium 3.1 mmol/L (3.5-5.1); Sodium Level 134 mmol/L (136-145)
--- NOTE | 2022-06-06 08:58 | PN_ITS ---
Progress Note fever down, leukocytosis improving on iv antibiotics. Blood cx x2 sets today on dialysis via temp dialysis catheter. Assessment & Plan Assessment/Plan (1) Altered mental status: PLAN: due to sepsis (2) ESRD (end stage renal disease) on dialysis: PLAN: dialysis yesterday for missed tx , dialysis today to get back on TTS chronic scledule (3) Sepsis: PLAN: tunneled catheter removal for sepsis. (4) Anasarca: PLAN: improved with dialysis (5) PAOD (peripheral arterial occlusive disease): (6) Anemia: PLAN: 2u prbc on dialysis yesterday, epo on dialysis (7) Debility: PLAN: full assist, ECF pt (8) Atherosclerosis of coronary artery of [place] heart without angina pectoris: PLAN: hx CABG (9) Essential hypertension: PLAN: BP improved, stop amlodipine. May need to cut back metoprolol if bradycardia persists. (10) Obesity: (11) Urinary tract infection:
[2022-06-06 09:25] LABS: Vancomycin, Random Level 16.5 ug/mL (0.0-15.0)
[2022-06-06 10:05] LABS: Anisocytosis 1+; Eosinophil 2 % (0-5); Lymphocyte 11 % (19-41); Metamyelocyte 1 % (0-1); Monocyte 3 % (0-10); Myelocyte 1 % (0-0); Neutrophil-Band 8 % (0-5); Neutrophil-Segmented 74 % (47-70); Platelet Estimate SLT DEC (ADEQ); Red Cell Morphology N CHROM NORMAL (NORM C&C); Total Cells Counted 100 (MANUAL DIFF)
[2022-06-06 10:06] LABS: Acanthocytes 1+; Crenated RBC 1+
[2022-06-06 10:08] LABS: Absolute Lymphocyte Count 1.41 X10^3/uL (0.83-4.51); Absolute Neutrophil Count 10.5 X10^3/uL (2.0-7.7)
--- NOTE | 2022-06-06 11:26 | PCM.RX.CS ---
Consult Pharmacy has been consulted to manage selected antiobiotic: Vancomycin Type of Consult: Follow-up Prior Doses of Antibiotics Received/Current Regimen: the patient received vanc 2000mg x1 on 06/04 at 08:54 Labs: Sodium 134 mmol/L (136-145) L 06/06/22 07:26 Potassium 3.1 mmol/L (3.5-5.1) L 06/06/22 07:26 Chloride 100 mmol/L (98-107) 06/06/22 07:26 Carbon Dioxide 28.0 mmol/L (21.0-32.0) 06/06/22 07:26 Anion Gap 6 (5-15) 06/06/22 07:26 BUN 23 mg/dL (7-18) H 06/06/22 07:26 Creatinine 1.64 mg/dL (0.55-1.02) H 06/06/22 07:26 Est GFR (MDRD) Af Amer 40 mL/min (>60) L 06/06/22 07:26 Est GFR (MDRD) Non-Af 33 mL/min (>60) L 06/06/22 07:26 BUN/Creatinine Ratio 14.0 RATIO (10-20) 06/06/22 07:26 Glucose 140 mg/dL (74-106) H 06/06/22 07:26 Random Vancomycin 16.5 ug/mL (0.0-15.0) H 06/06/22 08:35 Microbiology: Microbiology 06/05/22 17:00 Blood Culture (Wb) - Left Hand Blood Culture - Preliminary 06/05/22 17:45 Blood Culture (Wb) - Left Hand Blood Culture - Preliminary 06/04/22 07:34 Urine Catheter - Ryan Urine Culture - Preliminary Enterobacter cloacae complex 06/04/22 08:10 Blood Culture (Wb) - Right Hand Blood Culture - Preliminary Staphylococcus aureus 06/04/22 07:34 Blood Culture (Wb) - Anticubital Right Bacteria Detection (PCR) - Final Staphylococcus aureus mecA Resistance Marker 06/04/22 07:34 Blood Culture (Wb) - Anticubital Right Blood Culture - Final Meth. resistant Staph. aureus 06/04/22 18:15 Other - Dialysis/Fistula Gram Stain - Final Weight used for dosin.5 kg Estimated Creatinine Clearance: on HD Goal Trough: 15-20 mcg/mL Pharmacy Plan for Drug Dosing: The vanc random level drawn this morning at 08:35 was 16.5. Per protocol for dosing in patients on hemodialysis, will give a dose of 500mg x1 today after dialysis. The patient is supposed to be getting back on a HD schedule after today so will schedule another vanc random level to be drawn pre-HD on Wednesday morning. Dosing to be determined from that level on Wednesday. Pharmacy Service will continue to monitor and adjust dosing as required. Follow-Up Labs: Trough Vancomycin - random pre-HD Labs to be done on [date and time ordered]: 06/09/22 0600
--- NOTE | 2022-06-06 11:40 | PN.SURG_ITS ---
Subjective Subjective patient undergoing dialysis, appears lethargic dialysis catheter working well according to dialysis nurse plan for permanent indwelling placement of dialysis catheter on Wednesday, per Dr. Strauss Objective Data Objective Data Vital Signs: Vital Signs Temp Pulse Resp BP Pulse Ox O2 Del Method O2 Flow Rate 98.7 F 57 L 16 113/51 L 98 Room Air 1 06/06/22 09:45 06/06/22 09:45 06/06/22 09:45 06/06/22 09:45 06/06/22 09:27 06/06/22 09:45 06/05/22 15:56 Oxygen Flow Rate (L/min) 1 Oxygen Delivery Method Room Air Weight: 87.5 kg Body Mass Index (BMI) 34.2 Intake & Output: Intake and Output for Last 24 Hours 06/04/22 06/05/22 06/06/22 23:59 23:59 23:59 Intake Total 640 / 640 2988.96 / 3138.96 194.79 / 194.79 Output Total 150 / 300 1800 / 1800 45 / 45 Balance 490 / 340 1188.96 / 1338.96 149.79 / 149.79 Lab / Micro Data Result Diagrams: 06/06/22 07:26 06/06/22 07:26 Labs: Laboratory Results - last 24 hr 06/05/22 08:45: Blood Type AB POSITIVE, Antibody Screen NEGATIVE, Crossmatch See Detail 06/05/22 12:06: POC Glucose 108 H 06/05/22 17:16: POC Glucose 106 06/05/22 19:10: Hgb 9.6 L, Hct 28.9 L 06/05/22 21:57: POC Glucose 188 H 06/06/22 06:32: POC Glucose 144 H 06/06/22 07:26: WBC 12.8 H, RBC 3.08 L, Hgb 9.2 L, Hct 27.5 L, MCV 89.3 D, MCH 29.9, MCHC 33.5, RDW Std Deviation 55.7 H, RDW Coeff of Jenna 17.1 H, Plt Count 135 L, MPV 9.9, Neut % (Auto) Not Reportable, Absolute Neuts (auto) 10.5 H, Absolute Lymphs (auto) 1.41, Total Counted 100, Neutrophils % (Manual) 74 H, Band Neutrophils % 8 H, Lymphocytes % (Manual) 11 L, Monocytes % (Manual) 3, Eosinophils % (Manual) 2, Metamyelocytes % 1, Myelocytes % 1 H, Diff Path Review May foll, Platelet Estimate SLT DEC, RBC Morphology N CHROM, Anisocytosis 1+, Crenated Cell 1+, Acanthocytes (Spur) 1+ 06/06/22 07:26: Sodium 134 L, Potassium 3.1 L, Chloride 100, Carbon Dioxide 28.0, Anion Gap 6, BUN 23 H, Creatinine 1.64 H, Estim Creat Clear Calc 25.65, Est GFR (MDRD) Af Amer 40 L, Est GFR (MDRD) Non-Af 33 L, BUN/Creatinine Ratio 14.0, Glucose 140 H, Calcium 7.8 L 06/06/22 08:35: Random Vancomycin 16.5 H Micro: Microbiology 06/05/22 17:00 Blood Culture (Wb) - Left Hand Blood Culture - Preliminary 06/05/22 17:45 Blood Culture (Wb) - Left Hand Blood Culture - Preliminary 06/04/22 07:34 Urine Catheter - Ryan Urine Culture - Preliminary Enterobacter cloacae complex 06/04/22 08:10 Blood Culture (Wb) - Right Hand Blood Culture - Preliminary Staphylococcus aureus 06/04/22 07:34 Blood Culture (Wb) - Anticubital Right Bacteria Detection (PCR) - Final Staphylococcus aureus mecA Resistance Marker 06/04/22 07:34 Blood Culture (Wb) - Anticubital Right Blood Culture - Final Meth. resistant Staph. aureus 06/04/22 18:15 Other - Dialysis/Fistula Gram Stain - Final Radiography Diagnostic Testing: Radiology Impression Echocardiogram 06/05/22 07:52 Interpretation Summary The estimated ejection fraction is 60 %. No evidence for diastolic dysfunction. The left atrium is mildly enlarged. Mild-Moderate (1-2+) aortic valve insufficiency. Ordering Physician: Dalia Zhao Referring Physician: Jonh Solis Performed By: Fatmata Abarca, DARIOCS, RVT Chest X-Ray 06/05/22 11:35 IMPRESSION: Removal of the right double-lumen catheter with replacement of a left sided internal jugular venous catheter with the tip in the right atrium. Electronically Signed: Donny Mariee MD at 12:23 EDT , Physical Exam Const General Appearance: lethargic Chest Chest Narrative: dialysis catheter site is clean and dry Resp normal respiratory effort Vital Signs/Image Vital Signs/Narrative: Vital Signs Temp Pulse Resp BP Pulse Ox O2 Del Method 06/06/22 09:30 Room Air 06/06/22 09:45 98.7 F 57 L 16 113/51 L Room Air 06/06/22 09:27 98.3 F 59 L 16 130/56 H 98 Room Air Assessment & Plan Assessment/Plan (1) ESRD (end stage renal disease) on dialysis: PLAN: Plan renal failure requiring dialysis Dr. Strauss plans placement of permanent catheter on Wednesday I will sign off for this weekend, please contact me if any needs arise Hospital Course Consultations Consultations: Consultations 06/04/22 12:20 Consult: General Surgery Routine Consulting Provider: Cira Strauss Reason for Consult: dialysis catheter removal due to sepsis EMERGENT Consult: Yes Notified: Yes Date Notified: 06/05/22 Time Notified: 12:20 Method of Notification: Verbal 06/04/22 12:47 Consult: Nephrology Routine Consulting Provider: Leanna Chandra Reason for Consult: ESRD, on dialysis EMERGENT Consult: No Notified: Yes Date Notified: 06/04/22 Time Notified: 12:51 Method of Notification: Text 06/05/22 07:52 Consult: Infectious Disease Routine Consulting Provider: Lai Muhammad Reason for Consult: staph bacteremia due to line sepsis from dialysis catheter EMERGENT Consult: No Notified: Yes Date Notified: 06/05/22 Time Notified: 09:15 Method of Notification: Text Operations None
--- NOTE | 2022-06-06 12:28 | PN.HOSP_ITS ---
Subjective Subjective Patient seen and examined. She is more alert today, and is able to communicate. She complained of left neck pain due to the temporary dialysis catheter inserted there. Review of systems is otherwise negative. Repeat blood cultures are still positive for staph aureus. WBC is 12.8. Objective Data Objective Data Vital Signs: Vital Signs Temp Pulse Resp BP Pulse Ox O2 Del Method O2 Flow Rate 98.7 F 57 L 16 113/51 L 98 Room Air 1 06/06/22 09:45 06/06/22 09:45 06/06/22 09:45 06/06/22 09:45 06/06/22 09:27 06/06/22 09:45 06/05/22 15:56 Oxygen Flow Rate (L/min) 1 Oxygen Delivery Method Room Air Weight: 192 lb 14.472 oz Body Mass Index (BMI) 34.2 Intake & Output: Intake and Output for Last 24 Hours 06/04/22 06/05/22 06/06/22 23:59 23:59 23:59 Intake Total 640 / 640 2988.96 / 3138.96 194.79 / 194.79 Output Total 150 / 300 1800 / 1800 45 / 45 Balance 490 / 340 1188.96 / 1338.96 149.79 / 149.79 Lab / Micro Data Result Diagrams: 06/06/22 07:26 06/06/22 07:26 Labs: Laboratory Results - last 24 hr 06/05/22 08:45: Blood Type AB POSITIVE, Antibody Screen NEGATIVE, Crossmatch See Detail 06/05/22 17:16: POC Glucose 106 06/05/22 19:10: Hgb 9.6 L, Hct 28.9 L 06/05/22 21:57: POC Glucose 188 H 06/06/22 06:32: POC Glucose 144 H 06/06/22 07:26: WBC 12.8 H, RBC 3.08 L, Hgb 9.2 L, Hct 27.5 L, MCV 89.3 D, MCH 29.9, MCHC 33.5, RDW Std Deviation 55.7 H, RDW Coeff of Jenna 17.1 H, Plt Count 135 L, MPV 9.9, Neut % (Auto) Not Reportable, Absolute Neuts (auto) 10.5 H, Absolute Lymphs (auto) 1.41, Total Counted 100, Neutrophils % (Manual) 74 H, Band Neutrophils % 8 H, Lymphocytes % (Manual) 11 L, Monocytes % (Manual) 3, Eosinophils % (Manual) 2, Metamyelocytes % 1, Myelocytes % 1 H, Diff Path Review May foll, Platelet Estimate SLT DEC, RBC Morphology N CHROM, Anisocytosis 1+, Crenated Cell 1+, Acanthocytes (Spur) 1+ 06/06/22 07:26: Sodium 134 L, Potassium 3.1 L, Chloride 100, Carbon Dioxide 28.0, Anion Gap 6, BUN 23 H, Creatinine 1.64 H, Estim Creat Clear Calc 25.65, Est GFR (MDRD) Af Amer 40 L, Est GFR (MDRD) Non-Af 33 L, BUN/Creatinine Ratio 14.0, Glucose 140 H, Calcium 7.8 L 06/06/22 08:35: Random Vancomycin 16.5 H Micro: Microbiology 06/05/22 17:00 Blood Culture (Wb) - Left Hand Blood Culture - Preliminary 06/05/22 17:45 Blood Culture (Wb) - Left Hand Blood Culture - Preliminary 06/04/22 07:34 Urine Catheter - Ryan Urine Culture - Preliminary Enterobacter cloacae complex 06/04/22 08:10 Blood Culture (Wb) - Right Hand Blood Culture - Preliminary Staphylococcus aureus 06/04/22 07:34 Blood Culture (Wb) - Anticubital Right Bacteria Detection (PCR) - Final Staphylococcus aureus mecA Resistance Marker 06/04/22 07:34 Blood Culture (Wb) - Anticubital Right Blood Culture - Final Meth. resistant Staph. aureus 06/04/22 18:15 Other - Dialysis/Fistula Gram Stain - Final Radiography Diagnostic Testing: Radiology Impression Echocardiogram 06/05/22 07:52 Interpretation Summary The estimated ejection fraction is 60 %. No evidence for diastolic dysfunction. The left atrium is mildly enlarged. Mild-Moderate (1-2+) aortic valve insufficiency. Ordering Physician: Dalia Zhao Referring Physician: Jonh Solis Performed By: Fatmata Abarca, RDCS, RVT Physical Exam Const alert and oriented x3 Orientation / Consciousness: lethargic HEENT normocephalic and head/scalp atraumatic Mouth: oral and palatal mucosa normal Eyes PERRL and EOMs intact bilaterally Neck no lymphadenopathy Resp Resp Narrative: diminished breath sounds bibasally, no wheezes or crackles. on room air. Cardio regular rate, regular rhythm, S1 normal heart sound, S2 normal heart sound and no murmurs GI normal to inspection, nondistended, normoactive bowel sounds, soft to palpation, non-tender and non-distended Extremity normal to inspection, full ROM and no clubbing, cyanosis or edema Skin Skin Narrative: dialysis catheter removed; intact dressing over site; temporary dialysis catheter in right side of neck Neuro CN's II-XII intact bilaterally and moves all extremities Sensorium / Orientation: awake and alert Psych Psych Narrative: flat affect Assessment & Plan Assessment/Plan (1) Altered mental status: (2) Urinary tract infection: PLAN: Plan #Acute metabolic encephalopathy * due to infected dialysis catheter and UTI * encephalopathy has largely resolved. * blood cultures positive for Staph aureus * urinalysis showed 3+ bacteria. Urine culture pending * on IV vancomycin and zosyn * ID on board * dialysis catheter removed. * * #Staph aureus bacteremia due to line sepsis * blood cultures positive for Staph aureus; repeat blood cultures still positive for staph aureus * per nephrology, patient also had pus from the dialysis line site which cultured staph aureus * on IV vancomycin and zosyn * 2D echo showed no evidence of vegetation * #ESRD on HD * nephrology consulted * dialysis catheter removed * had temporary dialysis cathter inserted * #Hyponatremia * Na is 134 today Likely due to ESRD * will trend sodium level * #Hypokalemia: K is 3.1. Will replace and trend. * #Acute on Chronic anemia: * Hb today is 9.2, up from 6.3 yesterday. 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 Couldnt have co lonoscopy as she couldnt tolerate the prep * Baseline is ~ 7-8. * will switch to IV pantoprazole 40mg bid * transfuse with 2 units of pRBCs * check stool for occult blood * consult GI * Will monitor #TYpe 2 diabetes mellitus: resume lantus. Accuchecks ACHS. #Hyperlipidemia: On statin #History of heart failure preserved ejection fraction: On Lasix. Not in exacerbation #History of CAD s/p CABG: On aspirin and Plavix as well as high intensity statin #Depression: On citalopram DVT prophylaxis: Lovenox renally dosed CODE STATUS: Full code * Charges/Coding Visit Charges Inpatient E&M: 63164 Subs Hosp L3
--- NOTE | 2022-06-06 13:13 | DIALYSIS ---
hemodialysis completed x 3 hrs. Access via left neck temporary HD cath. Net UF 1000ml. Blood cultures x 2sets drawn during dialysis. Retacrit given during dialysis. pt stable post tx. See HD flowsheet in chart.
[2022-06-06] MEDS: Heparin 10,000 UNITS/10 ML Vial 2800 UNITS IV (13:29)
[2022-06-06] MEDS: Epoetin Alfa epbx 10,000 UNITS/ML 10000 UNIT IV (13:30)
[2022-06-06] MEDS: Clopidogrel Bisulfate 75 MG Tablet PO (13:45)
[2022-06-06] MEDS: Aspirin 81 MG TAB.CHEW PO (13:45)
[2022-06-06] MEDS: predniSONE 5 MG Tablet PO (13:45)
[2022-06-06] MEDS: Citalopram 20 MG Tablet PO (13:45)
[2022-06-06] MEDS: Calcium Carbonate 500 MG Tablet PO ×2 (13:45→22:12)
[2022-06-06] MEDS: Polyethylene Glycol 3350 17 GM PACKET PO (13:45)
[2022-06-06 13:56] LABS: Bedside Glucose 107 mg/dL (74-106)
[2022-06-06] MEDS: Juven (unflavored) Packet 1 PACKET PO (17:08)
[2022-06-06 17:51] LABS: Bedside Glucose 219 mg/dL (74-106)
[2022-06-06] MEDS: Vancomycin IV 500 MG/100 ML BAG 100 MG IV (18:03)
[2022-06-06] MEDS: Atorvastatin Calcium 80 MG Tablet PO (22:12)
[2022-06-06] MEDS: MELATONIN 3 MG TABLET PO (22:13)
[2022-06-06] MEDS: Metoprolol Tartrate 50 MG Tablet PO (22:21)
[2022-06-06 23:00] LABS: Bedside Glucose 191 mg/dL (74-106)
[2022-06-07] VITALS (11 sets, daily range): BP systolic 118–152; BP diastolic 44–78; PULSE 50–61; RESP 14–18; TEMP 36.4–36.6; O2SAT 94–100
[2022-06-07] MEDS: Acetaminophen 325 MG Tablet 650 MG PO ×2 (01:11→16:54)
[2022-06-07] MEDS: 0.9% Saline Lock 10 ML Syringe IV (06:00)
[2022-06-07] MEDS: Levothyroxine 125 MCG Tablet PO (06:00)
[2022-06-07 07:00] LABS: Bedside Glucose 152 mg/dL (74-106)
[2022-06-07 07:20] LABS: Hematocrit 29.8 % (37-47); Hemoglobin 9.7 g/dL (12.0-15.0); Mean Corp Hgb Conc 32.6 g/dL (32-36); Mean Corpuscular Hgb 29.9 pg (27.0-32.0); Mean Platelet Vol. 10.6 fl (6.2-12.0); POSITIVE COUNT YES; POSITIVE MORPHOLOGY YES; Platelet Count 184 K/mm3 (150-450); RBC Distribution Width CV 16.7 % (11.6-14.6); RBC Distribution Width SD 56.8 fl (35.1-43.9); Red Blood Count 3.24 M/mm3 (4.2-5.4); White Blood Count 12.6 K/mm3 (4.4-11.0)
[2022-06-07 07:24] LABS: Differential Indicated MANUAL DIFF
[2022-06-07 07:40] LABS: Anion Gap 7 (5-15); BUN 21 mg/dL (7-18); BUN/Creat Ratio 14.6 RATIO (10-20); Calcium,Total 7.8 mg/dL (8.5-10.1); Chloride 98 mmol/L (98-107); Creatinine, Serum 1.44 mg/dL (0.55-1.02); EST Glomerular Filtration Rate 38 mL/min (>60); Est Glom Filt Rate - Afr Amer 46 mL/min (>60); Estimated Creatinine Clearance 29.21 ml/min; Glucose 153 mg/dL (74-106); Potassium 3.7 mmol/L (3.5-5.1); Sodium Level 132 mmol/L (136-145)
[2022-06-07 08:31] LABS: Eosinophil 1 % (0-5); Lymphocyte 9 % (19-41); Metamyelocyte 3 % (0-1); Monocyte 5 % (0-10); Myelocyte 3 % (0-0); Neutrophil-Band 3 % (0-5); Neutrophil-Segmented 76 % (47-70); Nucleated Red Bld Cells,Manual 1 % (0-5); Total Cells Counted 100 (MANUAL DIFF)
[2022-06-07 08:32] LABS: Absolute Lymphocyte Count 1.13 X10^3/uL (0.83-4.51); Absolute Neutrophil Count 10.7 X10^3/uL (2.0-7.7); Lymphocyte # 1.13 X10^3/ul (0.83-4.51); Neutrophil # 10.68 X10^3/uL (2.7-7.7)
[2022-06-07 08:33] LABS: Platelet Estimate ADEQUATE (ADEQ); Red Cell Morphology NORM C+C NORMAL (NORM C&C)
[2022-06-07] MEDS: Polyethylene Glycol 3350 17 GM PACKET PO (10:21)
[2022-06-07] MEDS: Calcium Carbonate 500 MG Tablet PO ×2 (10:21→22:20)
[2022-06-07] MEDS: Aspirin 81 MG TAB.CHEW PO (10:23)
[2022-06-07] MEDS: Juven (unflavored) Packet 1 PACKET PO ×2 (10:23→16:57)
[2022-06-07] MEDS: Citalopram 20 MG Tablet PO (10:24)
[2022-06-07] MEDS: Clopidogrel Bisulfate 75 MG Tablet PO (10:29)
--- NOTE | 2022-06-07 10:36 | PN.HOSP_ITS ---
Subjective Subjective Patient seen and examined. She had no active complaints this morning and had an uneventful night. REview of systems is otherwise negative. Repeat blood cultures are positive for staph aureus. REview of systems is otherwise negative. Patient is much more alert and communicative today. Objective Data Objective Data Vital Signs: Vital Signs Temp Pulse Resp BP Pulse Ox O2 Del Method O2 Flow Rate 97.8 F 54 L 14 118/44 L 100 Room Air 1 06/07/22 02:55 06/07/22 10:29 06/07/22 02:55 06/07/22 10:29 06/07/22 02:55 06/07/22 02:55 06/05/22 15:56 Oxygen Flow Rate (L/min) 1 Oxygen Delivery Method Room Air Weight: 192 lb 14.472 oz Body Mass Index (BMI) 34.2 Intake & Output: Intake and Output for Last 24 Hours 06/05/22 06/06/22 06/07/22 23:59 23:59 23:59 Intake Total 2988.96 / 3138.96 804.79 / 804.79 100 / 100 Output Total 1800 / 1800 2145 / 2145 Balance 1188.96 / 1338.96 -1340.21 / -1340.21 100 / 100 Lab / Micro Data Result Diagrams: 06/07/22 06:22 06/07/22 06:22 Labs: Laboratory Results - last 24 hr 06/06/22 13:28: POC Glucose 107 H 06/06/22 17:10: POC Glucose 219 H 06/06/22 22:10: POC Glucose 191 H 06/07/22 06:22: WBC 12.6 H, RBC 3.24 L, Hgb 9.7 L, Hct 29.8 L, MCV 92.0, MCH 29.9, MCHC 32.6, RDW Std Deviation 56.8 H, RDW Coeff of Jenna 16.7 H, Plt Count 184, MPV 10.6, Neut % (Auto) Not Reportable, Absolute Neuts (auto) 10.7 H, Absolute Lymphs (auto) 1.13, Total Counted 100, Neutrophils % (Manual) 76 H, Band Neutrophils % 3, Lymphocytes % (Manual) 9 L, Monocytes % (Manual) 5, Eosinophils % (Manual) 1, Metamyelocytes % 3 H, Myelocytes % 3 H, Nucleated RBCs/100 WBC 1, Diff Path Review May foll, Platelet Estimate ADEQUATE, RBC Morphology NORM C+C 06/07/22 06:22: Sodium 132 L, Potassium 3.7, Chloride 98, Carbon Dioxide 27.0, Anion Gap 7, BUN 21 H, Creatinine 1.44 H, Estim Creat Clear Calc 29.21, Est GFR (MDRD) Af Amer 46 L, Est GFR (MDRD) Non-Af 38 L, BUN/Creatinine Ratio 14.6, Glucose 153 H, Calcium 7.8 L 06/07/22 06:40: POC Glucose 152 H Micro: Microbiology 06/06/22 10:15 Blood Culture (Wb) - No Site/Description Given Blood Culture - Preliminary 06/06/22 10:30 Blood Culture (Wb) - No Site/Description Given Blood Culture - Preliminary 06/04/22 07:34 Urine Catheter - Ryan Urine Culture - Final Enterobacter cloacae complex 06/04/22 18:15 Other - Dialysis/Fistula Miscellaneous Culture - Preliminary Staphylococcus aureus 06/04/22 18:15 Other - Dialysis/Fistula Gram Stain - Final 06/05/22 17:00 Blood Culture (Wb) - Left Hand Blood Culture - Preliminary 06/05/22 17:45 Blood Culture (Wb) - Left Hand Blood Culture - Preliminary 06/04/22 08:10 Blood Culture (Wb) - Right Hand Blood Culture - Preliminary Staphylococcus aureus 06/04/22 07:34 Blood Culture (Wb) - Anticubital Right Bacteria Detection (PCR) - Final Staphylococcus aureus mecA Resistance Marker 06/04/22 07:34 Blood Culture (Wb) - Anticubital Right Blood Culture - Final Meth. resistant Staph. aureus Physical Exam Const alert and oriented x3 HEENT normocephalic, head/scalp atraumatic and moist oral mucous membranes Mouth: oral and palatal mucosa normal Eyes PERRL and EOMs intact bilaterally Neck no lymphadenopathy Resp Resp Narrative: diminished breath sounds bibasally, no wheezes or crackles. on room air. Cardio regular rate, regular rhythm, S1 normal heart sound, S2 normal heart sound and no murmurs GI normal to inspection, nondistended, normoactive bowel sounds, soft to palpation, non-tender and non-distended Extremity full ROM and no clubbing, cyanosis or edema Extremity Narrative: bilateral TMA amputation. Skin Skin Narrative: dialysis catheter removed; intact dressing over site; temporary dialysis catheter in right side of neck Neuro oriented x3, CN's II-XII intact bilaterally and moves all extremities Neuro Narrative: Sensorium / Orientation: awake and alert Psych Psych Narrative: flat affect Assessment & Plan Assessment/Plan (1) Altered mental status: (2) Urinary tract infection: PLAN: Plan #Acute metabolic encephalopathy * due to infected dialysis catheter and UTI * encephalopathy has largely resolved. * blood cultures positive for Staph aureus; repeat blood cultures positive for MRSA * urinalysis showed 3+ bacteria. Urine culture pending * on IV vancomycin and zosyn * ID on board * dialysis catheter removed. * * #Staph aureus bacteremia due to line sepsis * blood cultures positive for Staph aureus; repeat blood cultures still positive for staph aureus * per nephrology, patient also had pus from the dialysis line site which cultured staph aureus * on IV vancomycin and zosyn * 2D echo showed no evidence of vegetation * #ESRD on HD * nephrology on board * dialysis catheter removed * had temporary dialysis cathter inserted * on regular dialysis * #Hyponatremia * Na is 132 today Likely due to ESRD * will trend sodium level * #Hypokalemia: resolved * #Acute on Chronic anemia: * Hb today is 9.2, up from 6.3 yesterday. 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 Couldnt have colonoscopy as she couldnt tolerate the prep * Baseline is ~ 7-8. * on IV pantoprazole 40mg bid * transfuse with 2 units of pRBCs * check stool for occult blood * consult GI * Will monitor #TYpe 2 diabetes mellitus: resume lantus. Accuchecks ACHS. #Hyperlipidemia: On statin #History of heart failure preserved ejection fraction: On Lasix. Not in exacerbation #History of CAD s/p CABG: On aspirin and Plavix as well as high intensity statin #Depression: On citalopram DVT prophylaxis: Lovenox renally dosed CODE STATUS: Full code * Charges/Coding Visit Charges Inpatient E&M: 44057 Subs Hosp L3
[2022-06-07 12:00] LABS: Bedside Glucose 173 mg/dL (74-106)
[2022-06-07 17:45] LABS: Bedside Glucose 131 mg/dL (74-106)
[2022-06-07] MEDS: Metoprolol Tartrate 50 MG Tablet PO (22:20)
[2022-06-07] MEDS: MELATONIN 3 MG TABLET PO (22:20)
[2022-06-07] MEDS: Atorvastatin Calcium 80 MG Tablet PO (22:20)
[2022-06-07 22:55] LABS: Bedside Glucose 148 mg/dL (74-106)
[2022-06-08] VITALS (14 sets, daily range): BP systolic 125–164; BP diastolic 55–85; PULSE 53–64; RESP 14–18; TEMP 36.4–36.9; O2SAT 92–100
[2022-06-08] MEDS: Acetaminophen 325 MG Tablet 650 MG PO ×2 (03:15→09:01)
[2022-06-08] MEDS: Levothyroxine 125 MCG Tablet PO (05:32)
[2022-06-08 05:48] LABS: Hematocrit 29.2 % (37-47); Hemoglobin 9.7 g/dL (12.0-15.0); Mean Corp Hgb Conc 33.2 g/dL (32-36); Mean Corpuscular Hgb 30.5 pg (27.0-32.0); Mean Corpuscular Volume 91.8 fL (81-99); Mean Platelet Vol. 9.6 fl (6.2-12.0); POSITIVE COUNT YES; POSITIVE MORPHOLOGY YES; Platelet Count 210 K/mm3 (150-450); RBC Distribution Width CV 16.5 % (11.6-14.6); RBC Distribution Width SD 56.4 fl (35.1-43.9); Red Blood Count 3.18 M/mm3 (4.2-5.4); White Blood Count 14.3 K/mm3 (4.4-11.0)
[2022-06-08 06:13] LABS: Anion Gap 7 (5-15); BUN 31 mg/dL (7-18); BUN/Creat Ratio 15.1 RATIO (10-20); Calcium,Total 7.5 mg/dL (8.5-10.1); Chloride 98 mmol/L (98-107); Creatinine, Serum 2.05 mg/dL (0.55-1.02); EST Glomerular Filtration Rate 25 mL/min (>60); Est Glom Filt Rate - Afr Amer 31 mL/min (>60); Estimated Creatinine Clearance 20.52 ml/min; Glucose 119 mg/dL (74-106); Potassium 3.7 mmol/L (3.5-5.1); Sodium Level 133 mmol/L (136-145)
[2022-06-08 06:23] LABS: Differential Indicated MANUAL DIFF
[2022-06-08 06:28] LABS: Anisocytosis 1+; Platelet Estimate ADEQUATE (ADEQ)
[2022-06-08 06:30] LABS: Absolute Lymphocyte Count 2.29 X10^3/uL (0.83-4.51); Absolute Neutrophil Count 10.8 X10^3/uL (2.0-7.7); Metamyelocyte 1 % (0-1); Neutrophil-Band 5 % (0-5); Neutrophil-Segmented 70 % (47-70); Total Cells Counted 100 (MANUAL DIFF)
[2022-06-08 06:31] LABS: Atypical Lymphocyte 1+ %; Eosinophil 3 % (0-5); Lymphocyte 16 % (19-41); Monocyte 3 % (0-10); Myelocyte 2 % (0-0)
[2022-06-08 06:35] LABS: Bedside Glucose 112 mg/dL (74-106)
--- NOTE | 2022-06-08 07:55 | PN.SURG_ITS ---
Subjective Subjective Patient seen and examined during AM rounds. She is resting in bed without complaint. Objective Data Objective Data Vital Signs: Vital Signs Temp Pulse Resp BP Pulse Ox O2 Del Method O2 Flow Rate 97.6 F L 53 L 18 132/64 H 99 Room Air 1 06/08/22 06:20 06/08/22 07:00 06/08/22 06:20 06/08/22 06:20 06/08/22 06:20 06/08/22 06:20 06/05/22 15:56 Oxygen Flow Rate (L/min) 1 Oxygen Delivery Method Room Air Weight: 192 lb 14.472 oz Body Mass Index (BMI) 34.2 Intake & Output: Intake and Output for Last 24 Hours 06/06/22 06/07/22 06/08/22 23:59 23:59 23:59 Intake Total 804.79 / 804.79 790 / 790 75 / 75 Output Total 2145 / 2145 0 / 0 0 / 0 Balance -1340.21 / -1340.21 790 / 790 75 / 75 Lab / Micro Data Result Diagrams: 06/08/22 05:38 06/08/22 05:38 Labs: Laboratory Results - last 24 hr 06/07/22 06:22: Absolute Neuts (auto) 10.7 H, Absolute Lymphs (auto) 1.13, Total Counted 100, Neutrophils % (Manual) 76 H, Band Neutrophils % 3, Lymphocytes % (Manual) 9 L, Monocytes % (Manual) 5, Eosinophils % (Manual) 1, Metamyelocytes % 3 H, Myelocytes % 3 H, Nucleated RBCs/100 WBC 1, Diff Path Review March, Platelet Estimate ADEQUATE, RBC Morphology NORM C+C 06/07/22 11:40: POC Glucose 173 H 06/07/22 16:54: POC Glucose 131 H 06/07/22 22:32: POC Glucose 148 H 06/08/22 05:38: WBC 14.3 H, RBC 3.18 L, Hgb 9.7 L, Hct 29.2 L, MCV 91.8, MCH 30.5, MCHC 33.2, RDW Std Deviation 56.4 H, RDW Coeff of Jenna 16.5 H, Plt Count 210, MPV 9.6, Neut % (Auto) Not Reportable, Absolute Neuts (auto) 10.8 H, Absolute Lymphs (auto) 2.29, Total Counted 100, Neutrophils % (Manual) 70, Band Neutrophils % 5, Lymphocytes % (Manual) 16 L, Monocytes % (Manual) 3, Eosinophils % (Manual) 3, Metamyelocytes % 1, Myelocytes % 2 H, Diff Path Review May foll, Atypical Lymphocytes 1+, Platelet Estimate ADEQUATE, Anisocytosis 1+ 06/08/22 05:38: Sodium 133 L, Potassium 3.7, Chloride 98, Carbon Dioxide 28.0, Anion Gap 7, BUN 31 H, Creatinine 2.05 H, Estim Creat Clear Calc 20.52, Est GFR (MDRD) Af Amer 31 L, Est GFR (MDRD) Non-Af 25 L, BUN/Creatinine Ratio 15.1, Glucose 119 H, Calcium 7.5 L 06/08/22 06:16: POC Glucose 112 H Micro: Microbiology 06/06/22 10:15 Blood Culture (Wb) - No Site/Description Given Blood Culture - Preliminary Staphylococcus aureus 06/06/22 10:30 Blood Culture (Wb) - No Site/Description Given Blood Culture - Preliminary Staphylococcus aureus 06/05/22 17:45 Blood Culture (Wb) - Left Hand Blood Culture - Preliminary Staphylococcus aureus 06/05/22 17:00 Blood Culture (Wb) - Left Hand Blood Culture - Preliminary Staphylococcus aureus 06/04/22 07:34 Urine Catheter - Ryan Urine Culture - Final Enterobacter cloacae complex 06/04/22 18:15 Other - Dialysis/Fistula Miscellaneous Culture - Preliminary Staphylococcus aureus 06/04/22 18:15 Other - Dialysis/Fistula Gram Stain - Final 06/04/22 08:10 Blood Culture (Wb) - Right Hand Blood Culture - Preliminary Staphylococcus aureus 06/04/22 07:34 Blood Culture (Wb) - Anticubital Right Bacteria Detection (PCR) - Final Staphylococcus aureus mecA Resistance Marker 06/04/22 07:34 Blood Culture (Wb) - Anticubital Right Blood Culture - Final Meth. resistant Staph. aureus Physical Exam Const oriented x3 and no apparent distress Chest Chest Narrative: Patient's anterior chest wall is examined were prior catheter tunnel site ex ited. There is a small amount of exudate at this site, but the remainder of the wound appears noninfected without erythema or ongoing drainage. Resp normal respiratory effort Extremity Extremity Narrative: Bilateral lower extremity edema which is 2+ pitting Assessment & Plan Assessment/Plan (1) CRBSI (catheter-related bloodstream infection): PLAN: Plan Patient admitted following discovery of MRSA bacteremia and discontinuation of tunneled hemodialysis line on 06/04 followed by placement of temporary hemodialysis line on 06/05. Blood cultures continue to be positive and patient's white blood cell count is increased today. Patient denies any awareness of insect bites or rashes prior to her admission. I previously performed a left upper extremity duplex exam given a concern for a left upper extremity DVT, however, this was negative. To my knowledge no lower extremity studies have been done. We did discuss with wound care nursing the status of the patient's left lower extremity wound and they state there is no suspicion on their end for infection or asymmetrical swelling. We will continue to look for a source of patient's MRSA and await bloodstream clearance before considering tunneled line replacement. Charges/Coding Visit Charges Inpatient E&M: 13081 Subs Hosp L2
[2022-06-08] MEDS: Juven (unflavored) Packet 1 PACKET PO ×2 (09:02→16:21)
[2022-06-08] MEDS: predniSONE 5 MG Tablet PO (09:02)
[2022-06-08] MEDS: Citalopram 20 MG Tablet PO (09:07)
[2022-06-08] MEDS: Calcium Carbonate 500 MG Tablet PO ×2 (09:11→22:36)
[2022-06-08] MEDS: Clopidogrel Bisulfate 75 MG Tablet PO (09:13)
[2022-06-08] MEDS: Polyethylene Glycol 3350 17 GM PACKET PO (09:13)
--- NOTE | 2022-06-08 09:17 | WOUNDNOTE ---
wound photo: left posterolateral lower leg
[2022-06-08] MEDS: Aspirin 81 MG TAB.CHEW PO (09:18)
[2022-06-08] MEDS: Bisacodyl 5 MG Tablet 20 MG PO ×2 (09:59→15:28)
--- NOTE | 2022-06-08 10:34 | PCM.PN.HOSP ---
Subjective Subjective Doing well, no issues overnight. Still little bit sleepy. Blood cultures are still coming back positive Objective Data Objective Data Vital Signs: Vital Signs Temp Pulse Resp BP Pulse Ox O2 Del Method O2 Flow Rate 97.6 F L 55 L 18 145/60 H 99 Room Air 1 06/08/22 06:20 06/08/22 10:00 06/08/22 06:20 06/08/22 09:03 06/08/22 06:20 06/08/22 06:20 06/05/22 15:56 Oxygen Flow Rate (L/min) 1 Oxygen Delivery Method Room Air Weight: 192 lb 14.472 oz Body Mass Index (BMI) 34.2 Intake & Output: Intake and Output for Last 24 Hours 06/07/22 06/08/22 06/09/22 03:59 03:59 03:59 Intake Total 610 / 610 840 / 840 135 / 135 Output Total 2145 / 2145 0 / 0 0 / 0 Balance -1535 / -1535 840 / 840 135 / 135 Lab / Micro Data Result Diagrams: 06/08/22 05:38 06/08/22 05:38 Labs: Laboratory Results - last 24 hr 06/07/22 11:40: POC Glucose 173 H 06/07/22 16:54: POC Glucose 131 H 06/07/22 22:32: POC Glucose 148 H 06/08/22 05:38: WBC 14.3 H, RBC 3.18 L, Hgb 9.7 L, Hct 29.2 L, MCV 91.8, MCH 30.5, MCHC 33.2, RDW Std Deviation 56.4 H, RDW Coeff of Jenna 16.5 H, Plt Count 210, MPV 9.6, Neut % (Auto) Not Reportable, Absolute Neuts (auto) 10.8 H, Absolute Lymphs (auto) 2.29, Total Counted 100, Neutrophils % (Manual) 70, Band Neutrophils % 5, Lymphocytes % (Manual) 16 L, Monocytes % (Manual) 3, Eosinophils % (Manual) 3, Metamyelocytes % 1, Myelocytes % 2 H, Diff Path Review May foll, Atypical Lymphocytes 1+, Platelet Estimate ADEQUATE, Anisocytosis 1+ 06/08/22 05:38: Sodium 133 L, Potassium 3.7, Chloride 98, Carbon Dioxide 28.0, Anion Gap 7, BUN 31 H, Creatinine 2.05 H, Estim Creat Clear Calc 20.52, Est GFR (MDRD) Af Amer 31 L, Est GFR (MDRD) Non-Af 25 L, BUN/Creatinine Ratio 15.1, Glucose 119 H, Calcium 7.5 L 06/08/22 06:16: POC Glucose 112 H Micro: Microbiology 06/05/22 17:45 Blood Culture (Wb) - Left Hand Blood Culture - Preliminary Staphylococcus aureus 06/05/22 17:00 Blood Culture (Wb) - Left Hand Blood Culture - Preliminary Staphylococcus aureus 06/04/22 18:15 Other - Dialysis/Fistula Miscellaneous Culture - Final Meth. resistant Staph. aureus 06/04/22 18:15 Other - Dialysis/Fistula Gram Stain - Final 06/06/22 10:15 Blood Culture (Wb) - No Site/Description Given Blood Culture - Preliminary Staphylococcus aureus 06/06/22 10:30 Blood Culture (Wb) - No Site/Description Given Blood Culture - Preliminary Staphylococcus aureus 06/04/22 07:34 Urine Catheter - Ryan Urine Culture - Final Enterobacter cloacae complex 06/04/22 08:10 Blood Culture (Wb) - Right Hand Blood Culture - Preliminary Staphylococcus aureus 06/04/22 07:34 Blood Culture (Wb) - Anticubital Right Bacteria Detection (PCR) - Final Staphylococcus aureus mecA Resistance Marker 06/04/22 07:34 Blood Culture (Wb) - Anticubital Right Blood Culture - Final Meth. resistant Staph. aureus Physical Exam Narrative General: Alert but sleepy, Oriented x3, Cooperative, No apparent distress HEENT: Atraumatic, PERRLA, EOMI, Normocephalic, her right eye is swollen, there is some lateral injection of her cornea with little bit of swelling Oral: Moist Mucosa Neck: Supple, No JVD Lungs: Clear to auscultation, Normal air movement, No rhonchi, No wheeze, No rales Cardiovascular: Regular rate, Regular Rhythm, Normal S1, Normal S2, No murmurs Abdomen: Soft, Non Tender, Non-Distended, No Hepato-splenomegaly Extremities: No edema, Capillary Refill Less than 3 Seconds Skin: No rashes, No breakdown Musculoskeletal: No Tenderness to Palpation of Joints or Extremities Neurological: Cranial nerves II-XII grossly intact, Motor Exam 5/5 strength throughout, Sensory exam intact to light touch and pain Psych/Mental Status: Flat affect, Appropriate Assessment & Plan Assessment/Plan (1) Altered mental status: (2) Urinary tract infection: PLAN: Plan 1. Acute metabolic encephalopathy secondary to MRSA bacteremia as well as Enterobacter UTI ? Continue with vancomycin and Zosyn ? We will obtain a blood culture again today ? Appreciate IDs assistance ? Her dialysis catheter was removed and there was purulent drainage upon removal which was cultured and came back with MRSA ? Echo was negative for any vegetations 2. ESRD on dialysis/DM 2 ? She does have a temporary dialysis catheter placed ? Continue with dialysis ? Appreciate nephrology's assistance ? Continue with her home Lantus ? Accu-Cheks AC at bedtime we will make adjustments as necessary 3. HTN/HLD/chronic diastolic CHF/CAD status post CABG ? Continue with dialysis and Lasix ? Blood pressures are stable ? Continue with her aspirin as well as Plavix and her dose statin 4. Acute on chronic anemia ? Heme been is stable at 9.7 ? She has been transfused 2 units ? 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 There was an attempt at a colonoscopy at that time but she could not tolerate the prep ? Continue with twice daily Protonix, GI consulted 5. Anxiety pression ? Stable ? Can continue citalopram 6. Right eye swelling ? Unsure as to the etiology of this, she denies any pain with movement ? We will provide her with some saline drops at this time and wait for any change. DVT: Lovenox Charges/Coding Visit Charges Inpatient E&M: 20276 Subs Hosp L2
--- NOTE | 2022-06-08 11:30 | PCM.PN.REN ---
Subjective Subjective more alert, responsive today. Blood cx from 06/06 still with GPC Objective Data Objective Data Vital Signs: Vital Signs Temp Pulse Resp BP Pulse Ox O2 Del Method O2 Flow Rate 97.6 F L 54 L 18 145/60 H 99 Room Air 1 06/08/22 06:20 06/08/22 11:00 06/08/22 06:20 06/08/22 09:03 06/08/22 06:20 06/08/22 06:20 06/05/22 15:56 Oxygen Flow Rate (L/min) 1 Oxygen Delivery Method Room Air Weight: 87.5 kg Body Mass Index (BMI) 34.2 Intake & Output: Intake and Output for Last 24 Hours 06/06/22 06/07/22 06/08/22 23:59 23:59 23:59 Intake Total 804.79 / 804.79 790 / 790 185 / 185 Output Total 2145 / 2145 0 / 0 0 / 0 Balance -1340.21 / -1340.21 790 / 790 185 / 185 Lab / Micro Data Result Diagrams: 06/08/22 05:38 06/08/22 05:38 Labs: Laboratory Results - last 24 hr 06/07/22 11:40: POC Glucose 173 H 06/07/22 16:54: POC Glucose 131 H 06/07/22 22:32: POC Glucose 148 H 06/08/22 05:38: WBC 14.3 H, RBC 3.18 L, Hgb 9.7 L, Hct 29.2 L, MCV 91.8, MCH 30.5, MCHC 33.2, RDW Std Deviation 56.4 H, RDW Coeff of Jenna 16.5 H, Plt Count 210, MPV 9.6, Neut % (Auto) Not Reportable, Absolute Neuts (auto) 10.8 H, Absolute Lymphs (auto) 2.29, Total Counted 100, Neutrophils % (Manual) 70, Band Neutrophils % 5, Lymphocytes % (Manual) 16 L, Monocytes % (Manual) 3, Eosinophils % (Manual) 3, Metamyelocytes % 1, Myelocytes % 2 H, Diff Path Review May foll, Atypical Lymphocytes 1+, Platelet Estimate ADEQUATE, Anisocytosis 1+ 06/08/22 05:38: Sodium 133 L, Potassium 3.7, Chloride 98, Carbon Dioxide 28.0, Anion Gap 7, BUN 31 H, Creatinine 2.05 H, Estim Creat Clear Calc 20.52, Est GFR (MDRD) Af Amer 31 L, Est GFR (MDRD) Non-Af 25 L, BUN/Creatinine Ratio 15.1, Glucose 119 H, Calcium 7.5 L 06/08/22 06:16: POC Glucose 112 H Micro: Microbiology 06/05/22 17:45 Blood Culture (Wb) - Left Hand Blood Culture - Preliminary Staphylococcus aureus 06/05/22 17:00 Blood Culture (Wb) - Left Hand Blood Culture - Preliminary Staphylococcus aureus 06/04/22 18:15 Other - Dialysis/Fistula Miscellaneous Culture - Final Meth. resistant Staph. aureus 06/04/22 18:15 Other - Dialysis/Fistula Gram Stain - Final 06/06/22 10:15 Blood Culture (Wb) - No Site/Description Given Blood Culture - Preliminary Staphylococcus aureus 06/06/22 10:30 Blood Culture (Wb) - No Site/Description Given Blood Culture - Preliminary Staphylococcus aureus 06/04/22 07:34 Urine Catheter - Ryan Urine Culture - Final Enterobacter cloacae complex 06/04/22 08:10 Blood Culture (Wb) - Right Hand Blood Culture - Preliminary Staphylococcus aureus 06/04/22 07:34 Blood Culture (Wb) - Anticubital Right Bacteria Detection (PCR) - Final Staphylococcus aureus mecA Resistance Marker 06/04/22 07:34 Blood Culture (Wb) - Anticubital Right Blood Culture - Final Meth. resistant Staph. aureus Physical Exam Const alert and oriented x3 Resp clear to auscultation bilaterally Cardio regular rate Cardio Narrative: murmur GI non-tender and non-distended Palpation: soft Extremity General Extremity: edema bilateral Neuro Neuro Narrative: hemiplegia, hx stroke Sensorium / Orientation: awake and alert Psych cooperative Assessment & Plan Assessment/Plan (1) Altered mental status: PLAN: due to sepsis improved, back to baseline (2) ESRD (end stage renal disease) on dialysis: PLAN: dialysis TTS (3) Sepsis: PLAN: tunneled catheter removal for sepsis. ID consulted. Blood cx gpc from 06/06 (4) Anasarca: PLAN: improving with dialysis (5) PAOD (peripheral arterial occlusive disease): (6) Anemia: PLAN: 2u prbc on dialysis, epo on dialysis (7) Debility: PLAN: full assist, ECF pt (8) Atherosclerosis of coronary artery of [place] heart without angina pectoris: PLAN: hx CABG (9) H/O coronary artery bypass surgery: (10) Essential hypertension: (11) Obesity: (12) Urinary tract infection:
[2022-06-08 11:41] LABS: Bedside Glucose 130 mg/dL (74-106)
--- NOTE | 2022-06-08 12:18 | CASEMGMT ---
Social Work Note SW spoke with furnace helper. SW instructed to hold off on [facility] submitting for pre-cert at this time. SW to continue to follow, will ask W to submit for pre-cert once pt is closer to being medically ready for discharge. Plan: Return to [facility] pending pre-cert Carmella Prabhakar MSW, PARAPROFESSIONAL AIDE TEACHER
[2022-06-08 12:27] LABS: Pathologist Review Reviewed
[2022-06-08 12:28] LABS: Pathologist Review Reviewed
--- NOTE | 2022-06-08 12:50 | CASEMGMT ---
Care Coordination: Call received from Cj Lock with [facility]. Pt's home care companion is Heather Chandra, , . Pt is new to [facility] and does not currently have any waiver services at this time pending assessment of needs. Octavia Fuchs RN CM
[2022-06-08 13:13] LABS: Pathologist Review Reviewed
--- NOTE | 2022-06-08 15:37 | PCM.PN.ID ---
Physical Exam Narrative Feeling better, no fever, no new pain, no n/v/d. Const alert and no apparent distress Resp normal air movement and clear to auscultation bilaterally Cardio regular rate and regular rhythm GI soft to palpation, non-tender and non-distended Skin no rashes or lesions noted ID ID: Route of nutrition/ use of supplements: [] Nutritional Intake: [] IV Site: [] Ryan Catheter: [] Assessment & Plan Assessment/Plan (1) ESRD (end stage renal disease) on dialysis: (2) CRBSI (catheter-related bloodstream infection): PLAN: Bcx with MRSA. Cont vanc. ucx with enterobacter. Will cont zosyn for now. Permacath removed 06/04. TTE neg for veg. bcx still turning (+). Likely will need FARZANA. Mental status improved. Will follow
--- NOTE | 2022-06-08 16:01 | CON.PCM_ITS ---
Assessment & Plan Assessment/Plan (1) Anemia: PLAN: Acute on chronic anemia. Different diagnosis does include chronic blood loss anemia secondary to AVMs, neoplasia, ulcerative disease. Being that she is a hemodialysis patient she is high risk for development of telangiectasias, AV Malformations of the GI tract. She should have a colonoscopy and possible a repeat upper endoscopy and capsule endoscopy to evaluate her GI tract for blood loss. We will place her on clear liquids and Colonic prep for possible colonoscopy tomorrow. HPI Consult Data Date of Consult: 06/08/22 HPI Narrative Reason for Consultation: Anemia HPI Narrative: EBONIE WOLF, is a 72 F who presented with fever.? Patient became less responsive today and was brought to the emergency department.? Family states that the patient has been complaining of pain around her dialysis catheter that radiates into her neck and down her arm.? Family states that the pain is worse with certain movements of her arm and neck.? Family states that yesterday at dialysis they did blood cultures and one of the blood cultures came back positive. In the ED she was identified as having right sidedneck pain/swelling at site of permacath, fever/rigors.? On HD TuThSat.? Cxs sent from dialysis 06/02, came back (+).? Admitted from ED on vanc/zosyn.? Line removed, temp line placed, HD today.? Daughter at bedside provided history.She has been seen by infectious disease and is currently on medical therapy. She had a TTE did not show any signs of endocarditis. A FARZANA has been scheduled. When she came in the hospital she was discovered to be anemic at hemoglobin of 6.2. She got 3 units of packed red blood cells and is up to 9.6. I saw her previously 3 months ago for acute blood loss anemia. 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 He was treated endoscopically and she also discovered to have some mild gastritis in the setting of a hiatal hernia with small [place]'s erosions. We attempted to do colonoscopy previously however she is very difficult to prep because she is mostly bedbound. I was called back to see the patient for her worsening anemia. [facility] Medical History (HFpEF) heart failure with preserved ejection fraction Anemia Anxiety Atherosclerosis of coronary artery of [place] heart without angina pectoris Bruising Cardiology follow-up encounter Cellulitis of left lower limb Chronic headaches Chronic kidney disease (CKD) Chronic ulcer of left foot with necrosis of muscle Current use of insulin Depression Diabetic foot infection Diabetic nephropathy Dietary restriction Difficulty chewing Difficulty swallowing DM (diabetes mellitus), type 2, uncontrolled DVT (deep venous thrombosis) Dyspnea Easy bruising Essential hypertension Gastric reflux History of CHF (congestive heart failure) History of echocardiogram History of edema History of heart attack History of irregular heartbeat History of leukemia History of non-ST elevation myocardial infarction (NSTEMI) (01/13/20) History of steroid therapy Hypertension Insulin dependent diabetes mellitus Irregular heartbeat Kidney calculi Left foot infection Leg cramps Low iron Malnutrition Myocardial infarction Non-smoker Open wound Paralysis Peripheral vascular disease Post-menopausal Pre-op testing Pressure ulcer Rash Renal disease Restless legs Shortness of breath on exertion Sleep apnea Status post amputation of toe of left foot Stroke Thyroid disease Thyroiditis Type 2 diabetes mellitus with diabetic foot infection Ulcer Ulcer of left foot due to type 2 diabetes mellitus Upper gastrointestinal bleeding Home Medications amlodipine 10 mg tablet 10 mg PO DAILY BP 08/07/21 [History Last Taken Unknown] aspirin 81 mg capsule 81 mg PO DAILY Heart 08/07/21 [History Last Taken Unknown] metoprolol tartrate 25 mg tablet 50 mg PO BID BP 08/07/21 [History Last Taken Unknown] atorvastatin 80 mg tablet 80 mg PO QHS Cholesterol 08/12/21 [History Last Taken Unknown] clopidogrel 75 mg tablet 75 mg PO DAILY Antiplatelet 08/12/21 [History Last Taken Unknown] polyethylene glycol 3350 17 gram oral powder packet 17 g PO DAILY Constipation 08/12/21 [History Last Taken Unknown] nystatin 100,000 unit/gram topical powder ([facility]) 1 applic topical TID redness 02/21/22 [History Last Taken Unknown] furosemide 40 mg tablet 40 mg PO BID 04/22/22 [History Last Taken Unknown] levothyroxine 125 mcg tablet 125 mcg PO DAILY 04/22/22 [History Last Taken Unknown] calcium carbonate 600 mg calcium (1,500 mg) tablet 600 mg PO BID 04/23/22 [History Last Taken Unknown] citalopram 20 mg tablet 20 mg PO DAILY 04/23/22 [History Last Taken Unknown] insulin lispro 100 unit/mL subcutaneous pen 0 unit subcut TID 04/23/22 [History Last Taken Unknown] melatonin 1 mg tablet 1 mg PO QHS 04/23/22 [History Last Taken Unknown] prednisone 10 mg tablet 5 mg PO QODAY 04/23/22 [History Last Taken Unknown] pantoprazole 40 mg tablet,delayed release 40 mg PO BID #60 tabs 04/26/22 [Rx Last Taken Unknown] doxycycline hyclate 50 mg capsule 50 cap PO 1200 05/18/22 [History Last Taken Unknown] acetaminophen 500 mg tablet 1,000 mg PO Q6H PRN pain/fever 06/04/22 [History La st Taken Unknown] bisacodyl 10 mg rectal suppository 10 mg OR DAILY PRN Constipation 06/04/22 [History Last Taken Unknown] magnesium hydroxide 400 mg/5 mL oral suspension (Milk of Magnesia) 30 ml PO D AILY PRN Constipation 06/04/22 [History Last Taken Unknown] menthol 0.44 %-zinc oxide 20.6 % topical ointment 1 applic topical DAILY 06/04/22 [History Last Taken Unknown] ondansetron 4 mg disintegrating tablet 4 mg PO Q6H PRN Nausea 06/04/22 [History Last Taken Unknown] oxycodone 5 mg tablet 5 mg PO Q6H PRN Pain 06/04/22 [History Last Taken Unknown] triamcinolone acetonide 0.1 % topical ointment 1 applic topical BID 06/04/22 [History Last Taken Unknown] Allergy/AdvReac Type Severity Reaction Status Date / Time baclofen AdvReac Other Verified 06/04/22 07:25 Family History Mother CVA (cerebral vascular accident) Other Diabetes Heart disease Surgical History H/O coronary artery bypass surgery History of heart artery stent S/P tubal ligation Status post arterial stent Status post coronary artery bypass graft Status post coronary artery stent placement Status post hysterectomy Status post transmetatarsal amputation of left foot Social History household members: children housing: [facility] Smoking Status: Never smoker ROS Review of Systems ROS Unobtainable: due to mental status Physical Exam Narrative Feeling better, no fever, no new pain, no n/v/d. Const alert and no apparent distress Resp normal air movement and clear to auscultation bilaterally Cardio regular rate and regular rhythm GI soft to palpation, non-tender and non-distended Skin no rashes or lesions noted Lab / Micro Data Result Diagrams: 06/08/22 05:38 06/08/22 05:38 Labs: Laboratory Results - last 24 hr 06/06/22 07:26: Diff Path Review Reviewed 06/07/22 06:22: Diff Path Review Reviewed 06/07/22 16:54: POC Glucose 131 H 06/07/22 22:32: POC Glucose 148 H 06/08/22 05:38: WBC 14.3 H, RBC 3.18 L, Hgb 9.7 L, Hct 29.2 L, MCV 91.8, MCH 30.5, MCHC 33.2, RDW Std Deviation 56.4 H, RDW Coeff of Jenna 16.5 H, Plt Count 210, MPV 9.6, Neut % (Auto) Not Reportable, Absolute Neuts (auto) 10.8 H, Absolute Lymphs (auto) 2.29, Total Counted 100, Neutrophils % (Manual) 70, Band Neutrophils % 5, Lymphocytes % (Manual) 16 L, Monocytes % (Manual) 3, Eosinophils % (Manual) 3, Metamyelocytes % 1, Myelocytes % 2 H, Diff Path Review Reviewed, Atypical Lymphocytes 1+, Platelet Estimate ADEQUATE, Anisocytosis 1+ 06/08/22 05:38: Sodium 133 L, Potassium 3.7, Chloride 98, Carbon Dioxide 28.0, Anion Gap 7, BUN 31 H, Creatinine 2.05 H, Estim Creat Clear Calc 20.52, Est GFR (MDRD) Af Amer 31 L, Est GFR (MDRD) Non-Af 25 L, BUN/Creatinine Ratio 15.1, Glucose 119 H, Calcium 7.5 L 06/08/22 06:16: POC Glucose 112 H 06/08/22 11:17: POC Glucose 130 H Micro: Microbiology 06/05/22 17:45 Blood Culture (Wb) - Left Hand Blood Culture - Preliminary Staphylococcus aureus 06/05/22 17:00 Blood Culture (Wb) - Left Hand Blood Culture - Preliminary Staphylococcus aureus 06/04/22 18:15 Other - Dialysis/Fistula Miscellaneous Culture - Final Meth. resistant Staph. aureus 06/04/22 18:15 Other - Dialysis/Fistula Gram Stain - Final 06/06/22 10:15 Blood Culture (Wb) - No Site/Description Given Blood Culture - Preliminary Staphylococcus aureus 06/06/22 10:30 Blood Culture (Wb) - No Site/Description Given Blood Culture - Preliminary Staphylococcus aureus Charges/Coding Visit Charges Inpatient E&M: 17451 Init Hosp L2
[2022-06-08 16:21] LABS: Bedside Glucose 133 mg/dL (74-106)
[2022-06-08] MEDS: Polyethylene Glycol 3350 BOWEL PREP PO (16:55)
[2022-06-08] MEDS: Metoclopramide 10 MG/2 ML Vial 5 MG IV ×2 (17:00→23:37)
[2022-06-08] MEDS: Glycerin/Hypromellose/PEG400 15 ml Bottle 2 DRP RIGHT EYE (18:31)
[2022-06-08] MEDS: Atorvastatin Calcium 80 MG Tablet PO (22:31)
[2022-06-08] MEDS: Metoprolol Tartrate 50 MG Tablet PO (22:33)
[2022-06-08] MEDS: MELATONIN 3 MG TABLET PO (22:35)
[2022-06-09] VITALS (17 sets, daily range): BP systolic 95–182; BP diastolic 53–74; PULSE 51–65; RESP 14–20; TEMP 36.3–36.8; O2SAT 98–100; BMI 34.2
[2022-06-09 01:31] LABS: Bedside Glucose 181 mg/dL (74-106)
[2022-06-09] MEDS: Metoclopramide 10 MG/2 ML Vial 5 MG IV ×2 (05:42→13:48)
[2022-06-09] MEDS: Levothyroxine 125 MCG Tablet PO (05:49)
[2022-06-09 06:28] LABS: Hematocrit 31.5 % (37-47); Hemoglobin 10.3 g/dL (12.0-15.0); Mean Corp Hgb Conc 32.7 g/dL (32-36); Mean Corpuscular Hgb 29.9 pg (27.0-32.0); Mean Corpuscular Volume 91.6 fL (81-99); Mean Platelet Vol. 9.5 fl (6.2-12.0); POSITIVE COUNT YES; POSITIVE MORPHOLOGY YES; Platelet Count 279 K/mm3 (150-450); RBC Distribution Width CV 16.4 % (11.6-14.6); RBC Distribution Width SD 55.1 fl (35.1-43.9); Red Blood Count 3.44 M/mm3 (4.2-5.4); White Blood Count 17.3 K/mm3 (4.4-11.0)
[2022-06-09 06:38] LABS: Differential Indicated MANUAL DIFF
[2022-06-09 06:49] LABS: Eosinophil 2 % (0-5); Lymphocyte 11 % (19-41); Monocyte 6 % (0-10); Myelocyte 2 % (0-0); Neutrophil-Band 2 % (0-5); Neutrophil-Segmented 77 % (47-70); Platelet Estimate ADEQUATE (ADEQ); Total Cells Counted 100 (MANUAL DIFF)
[2022-06-09 06:50] LABS: Acanthocytes 1+; Anisocytosis 1+; Macrocytosis RARE; Microcytosis RARE
[2022-06-09 06:51] LABS: Absolute Neutrophil Count 13.7 X10^3/uL (2.0-7.7); Neutrophil # 13.65 X10^3/uL (2.7-7.7)
[2022-06-09 06:56] LABS: Anion Gap 10 (5-15); BUN 37 mg/dL (7-18); BUN/Creat Ratio 16.1 RATIO (10-20); Calcium,Total 7.6 mg/dL (8.5-10.1); Chloride 96 mmol/L (98-107); EST Glomerular Filtration Rate 22 mL/min (>60); Est Glom Filt Rate - Afr Amer 27 mL/min (>60); Estimated Creatinine Clearance 18.29 ml/min; Glucose 131 mg/dL (74-106); Potassium 3.4 mmol/L (3.5-5.1); Sodium Level 132 mmol/L (136-145)
[2022-06-09 07:04] LABS: Vancomycin, Random Level 13.7 ug/mL (0.0-15.0)
--- NOTE | 2022-06-09 07:30 | COLBX_PTH ---
PATIENT: EBONIE WOLF LOC: [facility] U#:[id number] AGE/SX: 72/F ROOM: [facility] RE06/04/[address]: Dr. Pritesh Cervantes MD : 1950 BED: 1 DIS: 06/10/2022 SPEC #: [id number] RECD: 06/09/22 08:32 STATUS: DARY SORENSEN #: [id number] KRISTOPHER: 06/09/22 07:[address]: Tima Vazquez DEPT: SURGICAL PATHOLOGY RECD BY: Gabrielle Decker ENTERED: 06/09/22 09:21 SP TYPE: COLON BX OTHR DR: MD Dr. Dalia Sherman MD Dr. Nicholas F Kotsonis, MD Dr. Robert Leininger, MD Dr. Tamera Robotham, MD Shannon Trzcinski, OUTREACH MANAGER-C Tissues: A - Transverse colon B - COLON BIOPSY C - Sigmoid colon biopsy D - Rectum, NOS Procedures: Surgery Specimen Level IV Comments: @ Ordering doctor for SUIV edited from to @ by RGOOD at 06/09/22 1342 @ Submitting doctor edited from to @ by RGOOD at 06/09/22 1342 HEADER OPERATION: Colonoscopy with biopsies and removal of polyps (MAC) PRE-OP DIAGNOSIS: Anemia TISSUE SUBMITTED: A ? Transverse colon polyp, B ? Hepatic flexure biopsy ? colitis, C ? Sigmoid colon polyp, D ? Rectal polyp MICROSCOPIC DIAGNOSIS A. Transverse colon polyp, biopsy: Fragments of tubular adenoma. B. Colon at hepatic flexure, biopsy: No pathologic change. C. Sigmoid colon polyp, biopsy: Tubulovillous adenoma. D. Rectal polyp, biopsy: Fragments of hyperplastic polyp. AM:daniel 06/10/2022 MICROSCOPIC DESCRIPTION Slides are reviewed. GROSS DESCRIPTION A - Received in fixative is one container labeled with the patient's name and designated transverse colon polyp. The specimen consists of multiple irregular fragments of light [place] soft tissue that in aggregate measure 1 x 0.3 x 0.1 cm. The specimen is totally submitted in one cassette. B - Received in fixative is one container labeled with the patient's name and designated hepatic flexure biopsy colitis. The specimen consists of one irregular fragment of light [place] soft tissue that measures 0.4 x 0.3 x 0.1 cm. The specimen is totally submitted in one cassette. C - Received in fixative is one container labeled with the patient's name and designated sigmoid colon polyp. The specimen consists of a [place]-pink polyp measuring 1 x 0.5 x 0.3 cm. The polyp is bisected and submitted entirely in one cassette. D - Received in fixative is one container labeled with the patient's name and designated rectal polyp. The specimen consists of two irregular fragments of light [place] soft tissue that in aggregate measure 0.6 x 0.3 x 0.1 cm. The specimen is totally submitted in one cassette. / SJ:rg 06/09/2022 TC:5 CPT: 81120 x4
--- NOTE | 2022-06-09 08:03 | PCM.RX.CS ---
Consult Pharmacy has been consulted to manage selected antiobiotic: Vancomycin Type of Consult: Follow-up Suspected Infection: Bacteremia Labs: Sodium 132 mmol/L (136-145) L 06/09/22 06:15 Potassium 3.4 mmol/L (3.5-5.1) L 06/09/22 06:15 Chloride 96 mmol/L (98-107) L 06/09/22 06:15 Carbon Dioxide 26.0 mmol/L (21.0-32.0) 06/09/22 06:15 Anion Gap 10 (5-15) 06/09/22 06:15 BUN 37 mg/dL (7-18) H 06/09/22 06:15 Creatinine 2.30 mg/dL (0.55-1.02) H 06/09/22 06:15 Est GFR (MDRD) Af Amer 27 mL/min (>60) L 06/09/22 06:15 Est GFR (MDRD) Non-Af 22 mL/min (>60) L 06/09/22 06:15 BUN/Creatinine Ratio 16.1 RATIO (10-20) 06/09/22 06:15 Glucose 131 mg/dL (74-106) H 06/09/22 06:15 Random Vancomycin 13.7 ug/mL (0.0-15.0) 06/09/22 06:15 Microbiology: Microbiology 06/06/22 10:15 Blood Culture (Wb) - No Site/Description Given Blood Culture - Preliminary Staphylococcus aureus 06/05/22 17:00 Blood Culture (Wb) - Left Hand Blood Culture - Preliminary Staphylococcus aureus 06/08/22 08:45 Blood Culture (Wb) - Anticubital Right Blood Culture - Preliminary No growth in 48 hours. 06/05/22 17:45 Blood Culture (Wb) - Left Hand Blood Culture - Preliminary Staphylococcus aureus 06/04/22 18:15 Other - Dialysis/Fistula Miscellaneous Culture - Final Meth. resistant Staph. aureus 06/04/22 18:15 Other - Dialysis/Fistula Gram Stain - Final 06/06/22 10:30 Blood Culture (Wb) - No Site/Description Given Blood Culture - Preliminary Staphylococcus aureus 06/04/22 07:34 Urine Catheter - Ryan Urine Culture - Final Enterobacter cloacae complex 06/04/22 08:10 Blood Culture (Wb) - Right Hand Blood Culture - Preliminary Staphylococcus aureus 06/04/22 07:34 Blood Culture (Wb) - Anticubital Right Bacteria Detection (PCR) - Final Staphylococcus aureus mecA Resistance Marker 06/04/22 07:34 Blood Culture (Wb) - Anticubital Right Blood Culture - Final Meth. resistant Staph. aureus Goal Trough: 15-20 mcg/mL Pharmacy Plan for Drug Dosing: VANCOMYCIN LEVEL RECEIVED Current Vancomycin Dose: pt on dialysis dosing Number of Doses Received: Vancomycin Level: 13.7 (random level) Hours Since Last Dose: Renal Function: SrCr 2.30 (pt due for dialysis on 06/09/22) Renal Function Trend: Lab/Micro: Vancomycin Plan/Comments: based on random level result, pt to receive a one time dose of 750mg post dialysis on 06/09/22. Next level pre dialysis on 06/11/22 Pending Level: 06/11/22 at 0600 Pharmacy Service will continue to monitor and adjust dosing as required. Follow-Up Labs: Trough Vancomycin - 06/11/22 at 0600
--- NOTE | 2022-06-09 08:18 | OP.COLON_ITS ---
Patient Name: Hayley Crawford Procedure Date: 06/09/2022 7:30 AM Date of : 1950 Age: 72 Procedure: Colonoscopy Indications: Iron deficiency anemia Providers: Tima Vazquez DO Medicines: Monitored Anesthesia Care Patient Profile: This is a 72 year old female. Refer to note in patient chart for documentation of history and physical. Last Colonoscopy: date unknown. Unable to locate last colonoscopy report. Complications: No immediate complications. Procedure: Pre-Anesthesia Assessment: - Prior to the procedure, a History and Physical was performed, and patient medications and allergies were reviewed. The patient is competent. The risks and benefits of the procedure and the sedation options and risks were discussed with the patient. All questions were answered and informed consent was obtained. Patient identification and proposed procedure were verified by the physician in the pre-procedure area. Mental Status Examination: alert and oriented. Airway Examination: normal oropharyngeal airway and neck mobility. Respiratory Examination: clear to auscultation. CV Examination: normal. Prophylactic Antibiotics: The patient does not require prophylactic antibiotics. Prior Anticoagulants: The patient has taken no previous anticoagulant or antiplatelet agents. ASA Grade Assessment: II - A patient with mild systemic disease. After reviewing the risks and benefits, the patient was deemed in satisfactory condition to undergo the procedure. The anesthesia plan was to use moderate sedation / analgesia (conscious sedation). Immediately prior to administration of medications, the patient was re-assessed for adequacy to receive sedatives. The heart rate, respiratory rate, oxygen saturations, blood pressure, adequacy of pulmonary ventilation, and response to care were monitored throughout the procedure. The physical status of the patient was re-assessed after the procedure. After I obtained informed consent, the scope was passed under direct vision. Throughout the procedure, the patient's blood pressure, pulse, and oxygen saturations were monitored continuously. The Colonoscope was introduced through the anus and advanced to the terminal ileum. The colonoscopy was performed without difficulty. The patient tolerated the procedure well. The quality of the bowel preparation was adequate to identify polyps 6 mm and larger in size. Moderate Sedation: Moderate (conscious) sedation was personally administered by an anesthesia professional. The following parameters were monitored: oxygen saturation, heart rate, blood pressure, and response to care. Total physician intraservice time was 15 minutes. Scope In: 7:44:56 AM Scope Withdrawal Time 0 hours 13 minutes 33 seconds Scope Out: 8:08:02 AM Total Procedure Duration Time 0 hours 23 minutes 6 seconds Findings: The perianal and digital rectal examinations were normal. A few small-mouthed diverticula were found in the sigmoid colon, hepatic flexure and ascending colon. Two sessile polyps were found in the sigmoid colon and transverse colon. The polyps were 1 to 2 mm in size. These polyps were removed with a hot snare. Resection and retrieval were complete. Verification of patient identification for the specimen was done. Estimated blood loss was minimal. A 5 mm polyp was found in the rectum. The polyp was sessile. Biopsies were taken with a cold forceps for histology. Verification of patient identification for the specimen was done. Coagulation for hemostasis using heater probe was successful. Estimated blood loss was minimal. An area of mildly congested mucosa was found at the hepatic flexure. Biopsies were taken with a cold forceps for histology. Verification of patient identification for the specimen was done. Estimated blood loss was minimal. Internal hemorrhoids were found during retroflexion. Impression: - Diverticulosis in the sigmoid colon, at the hepatic flexure and in the ascending colon. - Two 1 to 2 mm polyps in the sigmoid colon and in the transverse colon, removed with a hot snare. Resected and retrieved. - One 5 mm polyp in the rectum. Biopsied. Treated with a heater probe. - Congested mucosa at the hepatic flexure. Biopsied. - Internal hemorrhoids. Recommendation: - Repeat colonoscopy in 1 year for surveillance. - Continue present medications. Procedure Code(s): --- Professional --- 81489, 59, Colonoscopy, flexible; with control of bleeding, any method 17500, Colonoscopy, flexible; with removal of tumor(s), polyp(s), or other lesion(s) by snare technique 72760, 59, Colonoscopy, flexible; with biopsy, single or multiple CPT copyright 2017 [employer]. All rights reserved. The codes documented in this report are preliminary and upon enterprise application architect review may be revised to meet current compliance requirements. Tima Vazquez DO 06/09/2022 8:17:50 AM This report has been signed electronically. Number of Addenda: 1 Note Initiated On: 06/09/2022 7:30 AM Addendum Number: 1 Addendum Date: 08/13/2022 6:36:37 AM MAC was used as sedation for this procedure. Tima Vazquez DO 08/13/2022 6:36:41 AM This report has been signed electronically.
--- NOTE | 2022-06-09 08:19 | OP.CCLET_ITS ---
08/13/2022 Jonh Solis [address] [place] [address] Re : Colonoscopy procedure for Hayley Crawford Dear Dr. Solis This procedure was performed on Thursday, June 09, 2022. My impressions and recommendations are as follows: Impressions : - Diverticulosis in the sigmoid colon, at the hepatic flexure and in the ascending colon. - Two 1 to 2 mm polyps in the sigmoid colon and in the transverse colon, removed with a hot snare. Resected and retrieved. - One 5 mm polyp in the rectum. Biopsied. Treated with a heater probe. - Congested mucosa at the hepatic flexure. Biopsied. - Internal hemorrhoids. Recommendations : - Repeat colonoscopy in 1 year for surveillance. - Continue present medications. My findings are described in the full procedure note, which is enclosed. If I can be of further assistance, please feel free to contact me at . Sincerely, Tima Vazquez, 06/09/2022 8:17:50 AM This report has been signed electronically.
[2022-06-09 08:55] LABS: Bedside Glucose 128 mg/dL (74-106)
--- NOTE | 2022-06-09 10:47 | PCM.PN.REN ---
Subjective Subjective Following for ESRD Patient resting in bed, alert and oriented. Getting ready to begin dialysis session. Denies any complaints. Objective Data Objective Data Vital Signs: Vital Signs Temp Pulse Resp BP Pulse Ox O2 Del Method O2 Flow Rate 97.5 F L 52 L 16 182/74 H 100 Room Air 1 06/09/22 09:00 06/09/22 09:00 06/09/22 09:00 06/09/22 09:00 06/09/22 09:00 06/09/22 09:24 06/05/22 15:56 Oxygen Flow Rate (L/min) 1 Oxygen Delivery Method Room Air Weight: 87.5 kg Body Mass Index (BMI) 34.2 Intake & Output: Intake and Output for Last 24 Hours 06/07/22 06/08/22 06/09/22 23:59 23:59 23:59 Intake Total 790 / 790 545 / 545 50 / 50 Output Total 0 / 0 0 / 0 Balance 790 / 790 545 / 545 50 / 50 Lab / Micro Data Result Diagrams: 06/09/22 06:15 06/09/22 06:15 Labs: Laboratory Results - last 24 hr 06/06/22 07:26: Diff Path Review Reviewed 06/07/22 06:22: Diff Path Review Reviewed 06/08/22 05:38: Diff Path Review Reviewed 06/08/22 11:17: POC Glucose 130 H 06/08/22 16:02: POC Glucose 133 H 06/08/22 22:47: POC Glucose 181 H 06/09/22 05:53: POC Glucose 128 H 06/09/22 06:15: WBC 17.3 H, RBC 3.44 L, Hgb 10.3 L, Hct 31.5 L, MCV 91.6, MCH 29.9, MCHC 32.7, RDW Std Deviation 55.1 H, RDW Coeff of Jenna 16.4 H, Plt Count 279, MPV 9.5, Neut % (Auto) Not Reportable, Absolute Neuts (auto) 13.7 H, Absolute Lymphs (auto) 1.90, Total Counted 100, Neutrophils % (Manual) 77 H, Band Neutrophils % 2, Lymphocytes % (Manual) 11 L, Monocytes % (Manual) 6, Eosinophils % (Manual) 2, Myelocytes % 2 H, Diff Path Review May foll, Platelet Estimate ADEQUATE, Anisocytosis 1+, Microcytosis RARE, Macrocytosis RARE, Acanthocytes (Spur) 1+ 06/09/22 06:15: Sodium 132 L, Potassium 3.4 L, Chloride 96 L, Carbon Dioxide 26.0, Anion Gap 10, BUN 37 H, Creatinine 2.30 H, Estim Creat Clear Calc 18.29, Est GFR (MDRD) Af Amer 27 L, Est GFR (MDRD) Non-Af 22 L, BUN/Creatinine Ratio 16.1, Glucose 131 H, Calcium 7.6 L 06/09/22 06:15: Random Vancomycin 13.7 Micro: Microbiology 06/06/22 10:30 Blood Culture (Wb) - No Site/Description Given Blood Culture - Preliminary Staphylococcus aureus 06/06/22 10:15 Blood Culture (Wb) - No Site/Description Given Blood Culture - Preliminary Staphylococcus aureus 06/05/22 17:00 Blood Culture (Wb) - Left Hand Blood Culture - Preliminary Staphylococcus aureus 06/08/22 08:45 Blood Culture (Wb) - Anticubital Right Blood Culture - Preliminary No growth in 48 hours. 06/05/22 17:45 Blood Culture (Wb) - Left Hand Blood Culture - Preliminary Staphylococcus aureus 06/04/22 18:15 Other - Dialysis/Fistula Miscellaneous Culture - Final Meth. resistant Staph. aureus 06/04/22 18:15 Other - Dialysis/Fistula Gram Stain - Final 06/04/22 07:34 Urine Catheter - Ryan Urine Culture - Final Enterobacter cloacae complex 06/04/22 08:10 Blood Culture (Wb) - Right Hand Blood Culture - Preliminary Staphylococcus aureus 06/04/22 07:34 Blood Culture (Wb) - Anticubital Right Bacteria Detection (PCR) - Final Staphylococcus aureus mecA Resistance Marker 06/04/22 07:34 Blood Culture (Wb) - Anticubital Right Blood Culture - Final Meth. resistant Staph. aureus Physical Exam Narrative Alert and oriented x3, no apparent distress Cardio: S1, S2, RRR Respiratory: Lung sounds clear anteriorly, diminished breath sounds posterior bases. No wheeze rhonchi rales or Abdomen: Soft, nontender, positive bowel sounds Extremities: 2+ pitting edema noted bilateral lower legs. Nontunneled temporary left IJ HD catheter dressing clean, dry and intact Assessment & Plan Assessment/Plan (1) ESRD (end stage renal disease) on dialysis: (2) CRBSI (catheter-related bloodstream infection): (3) Anemia: (4) Essential hypertension: PLAN: Plan - ESRD on dialysis TTS followed by Dr. Chandra; patient will have dialysis today over 3 hours and attempt fluid removal ~2L as patient/blood pressure tolerates. Outpatient edw currently 86.5kg but likely will be changed/lowered by time of discharge. Protein supplement ordered -ID following for antibiotics. Zosyn and Vanco. Blood cultures from the kidney center on 06/02 positive for MRSA. Peripheral blood cultures and cultures from HD catheter drawn 06/04 MRSA. Tunneled HD catheter removed 06/04; currently dialyzing via non-tunneled temporary HD catheter. Blood cultures from 06/06 positive MRSA. Blood cultures drawn 06/08 pending. Echo negative for vegetation, may need FARZANA -Hemoglobin 10.3 today. Patient had colonoscopy on 06/08. On pantoprazole IV -bps acceptable on lopressor
[2022-06-09] MEDS: Acetaminophen 325 MG Tablet 650 MG PO ×2 (11:00→18:03)
--- NOTE | 2022-06-09 11:18 | PN.SURG_ITS ---
Subjective Subjective Patient's blood cultures still positive. Patient currently getting dialysis. Objective Data Objective Data Vital Signs: Vital Signs Temp Pulse Resp BP Pulse Ox O2 Del Method O2 Flow Rate 97.5 F L 52 L 16 182/74 H 100 Room Air 1 06/09/22 09:00 06/09/22 09:00 06/09/22 09:00 06/09/22 09:00 06/09/22 09:00 06/09/22 09:24 06/05/22 15:56 Oxygen Flow Rate (L/min) 1 Oxygen Delivery Method Room Air Weight: 192 lb 14.472 oz Body Mass Index (BMI) 34.2 Intake & Output: Intake and Output for Last 24 Hours 06/07/22 06/08/22 06/09/22 23:59 23:59 23:59 Intake Total 790 / 790 545 / 545 50 / 50 Output Total 0 / 0 0 / 0 Balance 790 / 790 545 / 545 50 / 50 Lab / Micro Data Result Diagrams: 06/09/22 06:15 06/09/22 06:15 Labs: Laboratory Results - last 24 hr 06/06/22 07:26: Diff Path Review Reviewed 06/07/22 06:22: Diff Path Review Reviewed 06/08/22 05:38: Diff Path Review Reviewed 06/08/22 11:17: POC Glucose 130 H 06/08/22 16:02: POC Glucose 133 H 06/08/22 22:47: POC Glucose 181 H 06/09/22 05:53: POC Glucose 128 H 06/09/22 06:15: WBC 17.3 H, RBC 3.44 L, Hgb 10.3 L, Hct 31.5 L, MCV 91.6, MCH 29.9, MCHC 32.7, RDW Std Deviation 55.1 H, RDW Coeff of Jenna 16.4 H, Plt Count 279, MPV 9.5, Neut % (Auto) Not Reportable, Absolute Neuts (auto) 13.7 H, Absolute Lymphs (auto) 1.90, Total Counted 100, Neutrophils % (Manual) 77 H, Band Neutrophils % 2, Lymphocytes % (Manual) 11 L, Monocytes % (Manual) 6, Eosinophils % (Manual) 2, Myelocytes % 2 H, Diff Path Review May foll, Platelet Estimate ADEQUATE, Anisocytosis 1+, Microcytosis RARE, Macrocytosis RARE, Acanthocytes (Spur) 1+ 06/09/22 06:15: Sodium 132 L, Potassium 3.4 L, Chloride 96 L, Carbon Dioxide 26.0, Anion Gap 10, BUN 37 H, Creatinine 2.30 H, Estim Creat Clear Calc 18.29, Est GFR (MDRD) Af Amer 27 L, Est GFR (MDRD) Non-Af 22 L, BUN/Creatinine Ratio 16.1, Glucose 131 H, Calcium 7.6 L 06/09/22 06:15: Random Vancomycin 13.7 Micro: Microbiology 06/06/22 10:30 Blood Culture (Wb) - No Site/Description Given Blood Culture - Preliminary Staphylococcus aureus 06/06/22 10:15 Blood Culture (Wb) - No Site/Description Given Blood Culture - Preliminary Staphylococcus aureus 06/05/22 17:00 Blood Culture (Wb) - Left Hand Blood Culture - Preliminary Staphylococcus aureus 06/08/22 08:45 Blood Culture (Wb) - Anticubital Right Blood Culture - Preliminary No growth in 48 hours. 06/05/22 17:45 Blood Culture (Wb) - Left Hand Blood Culture - Preliminary Staphylococcus aureus 06/04/22 18:15 Other - Dialysis/Fistula Miscellaneous Culture - Final Meth. resistant Staph. aureus 06/04/22 18:15 Other - Dialysis/Fistula Gram Stain - Final 06/04/22 07:34 Urine Catheter - Ryan Urine Culture - Final Enterobacter cloacae complex 06/04/22 08:10 Blood Culture (Wb) - Right Hand Blood Culture - Preliminary Staphylococcus aureus 06/04/22 07:34 Blood Culture (Wb) - Anticubital Right Bacteria Detection (PCR) - Final Staphylococcus aureus mecA Resistance Marker 06/04/22 07:34 Blood Culture (Wb) - Anticubital Right Blood Culture - Final Meth. resistant Staph. aureus Physical Exam Narrative Patient is currently getting dialysis, left IJ dialysis catheter working well Const no apparent distress Assessment & Plan Assessment/Plan (1) CRBSI (catheter-related bloodstream infection): (2) Sepsis: (3) ESRD (end stage renal disease) on dialysis: PLAN: Plan With plan for placement of tunneled dialysis catheter once patient's blood cultures are clear. Discussed with patient. No further question at this time. Cira Strauss M.D. Pager: [phone] [facility] [address] [place] [address], [facility], [address] [place] [address] Office: [phone] Charges/Coding Visit Charges Inpatient E&M: 04453 Subs Hosp L2
--- NOTE | 2022-06-09 11:20 | CASEMGMT ---
Social Work Note SW reviewed chart. Pt has CM through [facility] Heather Chandra ( , .). SW placed a call to Heather Chandra and left message letting her know pt is at [facility] and plan is to return to [facility] at discharge. Carmella Prabhakar CELL TECHNICIAN, GETTER FILLER
--- NOTE | 2022-06-09 12:04 | PN.HOSP_ITS ---
Subjective Subjective No issues overnight. Undergoing dialysis this morning still little bit sleepy after her colonoscopy. Her right is more swollen than yesterday and seems to be more tender. Objective Data Objective Data Vital Signs: Vital Signs Temp Pulse Resp BP Pulse Ox O2 Del Method O2 Flow Rate 97.5 F L 53 L 20 H 182/74 H 100 Room Air 1 06/09/22 09:00 06/09/22 09:00 06/09/22 09:00 06/09/22 09:00 06/09/22 09:00 06/09/22 09:24 06/05/22 15:56 Oxygen Flow Rate (L/min) 1 Oxygen Delivery Method Room Air Weight: 192 lb 14.472 oz Body Mass Index (BMI) 34.2 Intake & Output: Intake and Output for Last 24 Hours 06/08/22 06/09/22 06/10/22 03:59 03:59 03:59 Intake Total 840 / 840 545 / 545 50 / 50 Output Total 0 / 0 0 / 0 Balance 840 / 840 545 / 545 50 / 50 Lab / Micro Data Result Diagrams: 06/09/22 06:15 06/09/22 06:15 Labs: Laboratory Results - last 24 hr 06/06/22 07:26: Diff Path Review Reviewed 06/07/22 06:22: Diff Path Review Reviewed 06/08/22 05:38: Diff Path Review Reviewed 06/08/22 16:02: POC Glucose 133 H 06/08/22 22:47: POC Glucose 181 H 06/09/22 05:53: POC Glucose 128 H 06/09/22 06:15: WBC 17.3 H, RBC 3.44 L, Hgb 10.3 L, Hct 31.5 L, MCV 91.6, MCH 29.9, MCHC 32.7, RDW Std Deviation 55.1 H, RDW Coeff of Jenna 16.4 H, Plt Count 279, MPV 9.5, Neut % (Auto) Not Reportable, Absolute Neuts (auto) 13.7 H, Absolute Lymphs (auto) 1.90, Total Counted 100, Neutrophils % (Manual) 77 H, Band Neutrophils % 2, Lymphocytes % (Manual) 11 L, Monocytes % (Manual) 6, Eosinophils % (Manual) 2, Myelocytes % 2 H, Diff Path Review May foll, Platelet Estimate ADEQUATE, Anisocytosis 1+, Microcytosis RARE, Macrocytosis RARE, Acanthocytes (Spur) 1+ 06/09/22 06:15: Sodium 132 L, Potassium 3.4 L, Chloride 96 L, Carbon Dioxide 26.0, Anion Gap 10, BUN 37 H, Creatinine 2.30 H, Estim Creat Clear Calc 18.29, Est GFR (MDRD) Af Amer 27 L, Est GFR (MDRD) Non-Af 22 L, BUN/Creatinine Ratio 16 .1, Glucose 131 H, Calcium 7.6 L 06/09/22 06:15: Random Vancomycin 13.7 Micro: Microbiology 06/06/22 10:30 Blood Culture (Wb) - No Site/Description Given Blood Culture - Preliminary Staphylococcus aureus 06/06/22 10:15 Blood Culture (Wb) - No Site/Description Given Blood Culture - Preliminary Staphylococcus aureus 06/05/22 17:00 Blood Culture (Wb) - Left Hand Blood Culture - Preliminary Staphylococcus aureus 06/08/22 08:45 Blood Culture (Wb) - Anticubital Right Blood Culture - Preliminary No growth in 48 hours. 06/05/22 17:45 Blood Culture (Wb) - Left Hand Blood Culture - Preliminary Staphylococcus aureus 06/04/22 18:15 Other - Dialysis/Fistula Miscellaneous Culture - Final Meth. resistant Staph. aureus 06/04/22 18:15 Other - Dialysis/Fistula Gram Stain - Final 06/04/22 07:34 Urine Catheter - Ryan Urine Culture - Final Enterobacter cloacae complex 06/04/22 08:10 Blood Culture (Wb) - Right Hand Blood Culture - Preliminary Staphylococcus aureus 06/04/22 07:34 Blood Culture (Wb) - Anticubital Right Bacteria Detection (PCR) - Final Staphylococcus aureus mecA Resistance Marker 06/04/22 07:34 Blood Culture (Wb) - Anticubital Right Blood Culture - Final Meth. resistant Staph. aureus Physical Exam Narrative General: Alert but sleepy, Oriented x3, Cooperative, No apparent distress HEENT: Atraumatic, PERRLA, EOMI, Normocephalic, her right eye is swollen, there is some lateral injection of her cornea with increased periorbital swelling Oral: Moist Mucosa Neck: Supple, No JVD Lungs: Clear to auscultation, Normal air movement, No rhonchi, No wheeze, No rales Cardiovascular: Regular rate, Regular Rhythm, Normal S1, Normal S2, No murmurs Abdomen: Soft, Non Tender, Non-Distended, No Hepato-splenomegaly Extremities: No edema, Capillary Refill Less than 3 Seconds Skin: No rashes, No breakdown Musculoskeletal: No Tenderness to Palpation of Joints or Extremities Neurological: Cranial nerves II-XII grossly intact, Motor Exam 5/5 strength throughout, Sensory exam intact to light touch and pain Psych/Mental Status: Flat affect, Appropriate Assessment & Plan Assessment/Plan (1) Altered mental status: (2) Urinary tract infection: PLAN: Plan 1. Acute metabolic encephalopathy secondary to MRSA bacteremia as well as En terobacter UTI ? Continue with vancomycin and Zosyn ? We will obtain a blood culture again today ? Appreciate IDs assistance ? Her dialysis catheter was removed and there was purulent drainage upon removal which was cultured and came back with MRSA ? Echo was negative for any vegetations 2. ESRD on dialysis/DM 2 ? She does have a temporary dialysis catheter placed ? Continue with dialysis ? Appreciate nephrology's assistance ? Continue with her home Lantus ? Accu-Cheks AC at bedtime we will make adjustments as necessary 3. HTN/HLD/chronic diastolic CHF/CAD status post CABG ? Continue with dialysis and Lasix ? Blood pressures are stable ? Continue with her aspirin as well as Plavix and her dose statin 4. Acute on chronic anemia ? Hemoglobin been is stable at 9.7 ? She has been transfused 2 units ? 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 She had a colonoscopy today which demonstrated multiple polyps as well as congested mucosa at the hepatic flexure she has been biopsied ? Continue with twice daily Protonix, GI consulted 5. Anxiety pression ? Stable ? Can continue citalopram 6. Right eye swelling ? Given the increase in swelling, will consult ophthalmology for evaluation DVT: Juan Miguelx Charges/Coding Visit Charges Inpatient E&M: 59344 Subs Hosp L2
[2022-06-09 12:35] LABS: Bedside Glucose 110 mg/dL (74-106)
--- NOTE | 2022-06-09 13:10 | DIALYSIS ---
Hemodialysis complete. 3 hour run, 3k bath. Net fluid removed = 2000 ml. Patient tolerated HD tx well. Left IJ CVC: Site benign, biofilm dressing dry and intact. Lumen flushed with NS, filled to volume with Heparin, clamped and capped. Report given to primary RNHusam
[2022-06-09] MEDS: Heparin 10,000 UNITS/10 ML Vial 2800 UNITS IV (13:36)
[2022-06-09] MEDS: Citalopram 20 MG Tablet PO (13:41)
[2022-06-09] MEDS: Juven (unflavored) Packet 1 PACKET PO (13:41)
[2022-06-09] MEDS: Polyethylene Glycol 3350 17 GM PACKET PO (13:41)
[2022-06-09] MEDS: Calcium Carbonate 500 MG Tablet PO ×2 (13:41→21:47)
[2022-06-09] MEDS: Aspirin 81 MG TAB.CHEW PO (13:41)
[2022-06-09] MEDS: Clopidogrel Bisulfate 75 MG Tablet PO (13:41)
--- NOTE | 2022-06-09 14:18 | PCM.PN.ID ---
Physical Exam Narrative Feeling better, no fever, no focal joint/back pain Const alert and no apparent distress Resp normal air movement and clear to auscultation bilaterally Cardio regular rate and regular rhythm GI soft to palpation, non-tender and non-distended Skin no rashes or lesions noted ID ID: Route of nutrition/ use of supplements: [] Nutritional Intake: [] IV Site: [] Ryan Catheter: [] Assessment & Plan Assessment/Plan (1) ESRD (end stage renal disease) on dialysis: (2) CRBSI (catheter-related bloodstream infection): PLAN: Bcx with MRSA. Cont vanc. ucx with enterobacter. Stop zosyn tomorrow. Permacath removed 06/04. TTE neg for veg. bcx now neg at 48h, likely can avoid FARZANA. Repeat bcx today. Will follow
--- NOTE | 2022-06-09 15:36 | CASEMGMT ---
Social Work Note SARA faxed clinicals to Lori at [facility]. SARA placed a call to Lori at [facility] and updated her to submit for pre-cert. Plan: Return to [facility] pending pre-cert Carmella Prabhakar MSW, [employer]
[2022-06-09 16:25] LABS: Bedside Glucose 98 mg/dL (74-106)
--- NOTE | 2022-06-09 19:47 | CON.PCM_ITS ---
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 Given relatively minimal periorbital swelling in setting of severe disease and diabetes, high suspicion and concern for mucormycosis. MRSA subperiosteal abscess / orbital cellulitis also on differential diagnosis. Less likely autoimmune / inflammatory process. Recommend ENT consult for nasal endoscopy and biopsy, emergent transfer to tertiary care facility. Needs urgent MRI orbits / face, will need assistance from nephrology given ESRD on dialysis. Recommend receiving hospital have coverage for oculoplastics, ENT, retina. Endogenous endophthalmitis, right eye No view to fundus of right eye. Dense vitritis in setting of MRSA bacteremia most consistent with endogenous endophthalmitis. Poor prognosis given LP vision, however likely requires evaluation by retina physician for possible pars plana vitrectomy +/- intravitreal antibiotic injections. Pseudophakic OU Stable Discussed via telephone with night hospitalist covering for patient, Dr. Luciano HPI Consult Data Date of Consult: 06/09/22 HPI Narrative Reason for Consultation: Right eye swelling and pain HPI Narrative: EBONIE WOLF, is a 72 F who was admitted to the hospital 06/04/22 for altered mental status. She was found to have a catheter associated bactermia culture + for MRSA. She is now on IV vancomycin and zosyn. She has a history of ESRD due to type 2 DM, chronic anemia, heart failure, s/p CABG, HTN, thyroid cancer. The patient and consulting hospitalist report right eyelid swelling and pain worsening x2 days. She reports history of bilateral cataract surgery with IOLs with an unknown surgeon. She states she has right eye pain and blurry vision. Left eye normal. She was febrile upon admission and her WBC count is 17.3. Her highest blood glucose since admission has been in the 200s. [facility] Medical History (HFpEF) heart failure with preserved ejection fraction Anemia Anxiety Atherosclerosis of coronary artery of [place] heart without angina pectoris Bruising Cardiology follow-up encounter Cellulitis of left lower limb Chronic headaches Chronic kidney disease (CKD) Chronic ulcer of left foot with necrosis of muscle Current use of insulin Depression Diabetic foot infection Diabetic nephropathy Dietary restriction Difficulty chewing Difficulty swallowing DM (diabetes mellitus), type 2, uncontrolled DVT (deep venous thrombosis) Dyspnea Easy bruising Essential hypertension Gastric reflux History of CHF (congestive heart failure) History of echocardiogram History of edema History of heart attack History of irregular heartbeat History of leukemia History of non-ST elevation myocardial infarction (NSTEMI) (01/13/20) History of steroid therapy Hypertension Insulin dependent diabetes mellitus Irregular heartbeat Kidney calculi Left foot infection Leg cramps Low iron Malnutrition Myocardial infarction Non-smoker Open wound Paralysis Peripheral vascular disease Post-menopausal Pre-op testing Pressure ulcer Rash Renal disease Restless legs Shortness of breath on exertion Sleep apnea Status post amputation of toe of left foot Stroke Thyroid disease Thyroiditis Type 2 diabetes mellitus with diabetic foot infection Ulcer Ulcer of left foot due to type 2 diabetes mellitus Upper gastrointestinal bleeding Home Medications amlodipine 10 mg tablet 10 mg PO DAILY BP 08/07/21 [History Last Taken Unknown] aspirin 81 mg capsule 81 mg PO DAILY Heart 08/07/21 [History Last Taken Unknown] metoprolol tartrate 25 mg tablet 50 mg PO BID BP 08/07/21 [History Last Taken U nknown] atorvastatin 80 mg tablet 80 mg PO QHS Cholesterol 08/12/21 [History Last Taken Unknown] clopidogrel 75 mg tablet 75 mg PO DAILY Antiplatelet 08/12/21 [History Last Taken Unknown] polyethylene glycol 3350 17 gram oral powder packet 17 g PO DAILY Constipation 08/12/21 [History Last Taken Unknown] nystatin 100,000 unit/gram topical powder ([facility]) 1 applic topical TID redness 02/21/22 [History Last Taken Unknown] furosemide 40 mg tablet 40 mg PO BID 04/22/22 [History Last Taken Unknown] levothyroxine 125 mcg tablet 125 mcg PO DAILY 04/22/22 [History Last Taken Unknown] calcium carbonate 600 mg calcium (1,500 mg) tablet 600 mg PO BID 04/23/22 [History Last Taken Unknown] citalopram 20 mg tablet 20 mg PO DAILY 04/23/22 [History Last Taken Unknown] insulin lispro 100 unit/mL subcutaneous pen 0 unit subcut TID 04/23/22 [History Last Taken Unknown] melatonin 1 mg tablet 1 mg PO QHS 04/23/22 [History Last Taken Unknown] prednisone 10 mg tablet 5 mg PO QODAY 04/23/22 [History Last Taken Unknown] pantoprazole 40 mg tablet,delayed release 40 mg PO BID #60 tabs 04/26/22 [Rx Last Taken Unknown] doxycycline hyclate 50 mg capsule 50 cap PO 1200 05/18/22 [History Last Taken Unknown] acetaminophen 500 mg tablet 1,000 mg PO Q6H PRN pain/fever 06/04/22 [History Last Taken Unknown] bisacodyl 10 mg rectal suppository 10 mg RI DAILY PRN Constipation 06/04/22 [History Last Taken Unknown] magnesium hydroxide 400 mg/5 mL oral suspension (Milk of Magnesia) 30 ml PO DAILY PRN Constipation 06/04/22 [History Last Taken Unknown] menthol 0.44 %-zinc oxide 20.6 % topical ointment 1 applic topical DAILY 06/04/22 [History Last Taken Unknown] ondansetron 4 mg disintegrating tablet 4 mg PO Q6H PRN Nausea 06/04/22 [History Last Taken Unknown] oxycodone 5 mg tablet 5 mg PO Q6H PRN Pain 06/04/22 [History Last Taken Unknown] triamcinolone acetonide 0.1 % topical ointment 1 applic topical BID 06/04/22 [History Last Taken Unknown] Allergy/AdvReac Type Severity Reaction Status Date / Time baclofen AdvReac Other Verified 06/04/22 07:25 Family History Mother CVA (cerebral vascular accident) Other Diabetes Heart disease Surgical History H/O coronary artery bypass surgery History of heart artery stent S/P tubal ligation Status post arterial stent Status post coronary artery bypass graft Status post coronary artery stent placement Status post hysterectomy Status post transmetatarsal amputation of left foot Social History household members: children housing: care home Smoking Status: Never smoker ROS Constitutional Constitutional: Reports fatigue and poor appetite Eyes Eyes: Reports blurry vision and eye pain ENT HEENT: Denies epistaxis Physical Exam Narrative Near VA sc OD Light Perception OS 20/100 IOP OD 22 mmHg OS 13 mmHg (tonopen) Pupils OD 5mm, minimally reactive +rAPD, OS 4.5 to 2.5mm no rAPD CVF unable OD, full OS EOM restricted in all gazes OD, full OS Anterior segment exam with 20D lens and indirect ophthalmoscope: Lids - Complete ptosis of right upper eyelid with 2+ erythema of right upper and lower eyelids. Tender to palpation of lids and with gentle retropulsion of globe. Normal OS Conjunctiva - 2+ chemosis, 2+ injection OD. Normal OS Cornea - 2+ diffuse edema, no infiltrates OD. Normal OS Anterior chamber - Deep and formed OU Iris - Normal OU Lens - PCIOL OU Dilated fundus exam with 20D lens and indirect ophthalmoscope: Used one drop 1% tropicamide OU for dilation ~1930 Vitreous - Hazy OD. Normal OS Optic disc - No view OD. [place], sharp, no heme, no pallor, C:D ~0.4 OS Macula - No view OD. Flat OS Vessels - No view OD. Normal OS Periphery - No view OD. Attached OS Lab / Micro Data Attestation: I reviewed the patient's lab results. Result Diagrams: 06/09/22 06:15 06/09/22 06:15 Labs: Laboratory Results - last 24 hr 06/08/22 22:47: POC Glucose 181 H 06/09/22 05:53: POC Glucose 128 H 06/09/22 06:15: WBC 17.3 H, RBC 3.44 L, Hgb 10.3 L, Hct 31.5 L, MCV 91.6, MCH 29.9, MCHC 32.7, RDW Std Deviation 55.1 H, RDW Coeff of Jenna 16.4 H, Plt Count 279, MPV 9.5, Neut % (Auto) Not Reportable, Absolute Neuts (auto) 13.7 H, Absolute Lymphs (auto) 1.90, Total Counted 100, Neutrophils % (Manual) 77 H, Band Neutrophils % 2, Lymphocytes % (Manual) 11 L, Monocytes % (Manual) 6, Eosinophils % (Manual) 2, Myelocytes % 2 H, Diff Path Review May foll, Platelet Estimate ADEQUATE, Anisocytosis 1+, Microcytosis RARE, Macrocytosis RARE, Acanthocytes (Spur) 1+ 06/09/22 06:15: Sodium 132 L, Potassium 3.4 L, Chloride 96 L, Carbon Dioxide 26.0, Anion Gap 10, BUN 37 H, Creatinine 2.30 H, Estim Creat Clear Calc 18.29, Est GFR (MDRD) Af Amer 27 L, Est GFR (MDRD) Non-Af 22 L, BUN/Creatinine Ratio 16.1, Glucose 131 H, Calcium 7.6 L 06/09/22 06:15: Random Vancomycin 13.7 06/09/22 12:16: POC Glucose 110 H 06/09/22 16:05: POC Glucose 98 Micro: Microbiology 06/06/22 10:30 Blood Culture (Wb) - No Site/Description Given Blood Culture - Preliminary Meth. resistant Staph. aureus 06/06/22 10:15 Blood Culture (Wb) - No Site/Description Given Blood Culture - Preliminary Meth. resistant Staph. aureus 06/05/22 17:00 Blood Culture (Wb) - Left Hand Blood Culture - Preliminary Meth. resistant Staph. aureus 06/08/22 08:45 Blood Culture (Wb) - Anticubital Right Blood Culture - Preli minary No growth in 48 hours.
--- NOTE | 2022-06-09 20:36 | PCM.PN.BLA ---
Progress Note Asked to emergently speak with golf club head inspector and adjuster, Dr. Almonte concerning multiple right cranial nerve palsies, ophthalmoplegia, orbital cellulitis of the right eye. Patient is currently being treated for MRSA bacteremia; is on IV vancomycin and Zosyn Discussed with ID, will switch from vancomycin to daptomycin 8 MCG per KG every 48 hours. Discussed with the patient's daughter Jailyn, agreeable to transfer Patient's insurance is eligible for several places Will transfer her emergently to a tertiary facility
[2022-06-09] MEDS: 0.9% Saline Lock 10 ML Syringe IV (21:26)
[2022-06-09] MEDS: Metoprolol Tartrate 50 MG Tablet PO (21:47)
[2022-06-09] MEDS: MELATONIN 3 MG TABLET PO (21:50)
--- NOTE | 2022-06-10 00:32 | DS.PCM_ITS ---
Providers Date of Admission: 06/04/22 Date of Discharge: 06/10/22 Primary Care Physician: Dr. Jonh Solis MD Consultations 06/04/22 12:20 Consult: General Surgery Routine Consulting Provider: Cira Strauss Reason for Consult: dialysis catheter removal due to sepsis EMERGENT Consult: Yes MD Notified: Yes Date Notified: 06/05/22 Time Notified: 12:20 Method of Notification: Verbal 06/04/22 12:47 Consult: Nephrology Routine Consulting Provider: Tracey Booth Reason for Consult: ESRD, on dialysis EMERGENT Consult: No Notified: Yes Date Notified: 06/04/22 Time Notified: 12:51 Method of Notification: Text 06/05/22 07:52 Consult: Infectious Disease Routine Consulting Provider: Lai Muhammad Reason for Consult: staph bacteremia due to line sepsis from dialysis catheter EMERGENT Consult: No Notified: Yes Date Notified: 06/05/22 Time Notified: 09:15 Method of Notification: Text 06/07/22 10:47 Consult: Gastroenterology Routine Consulting Provider: [facility] Reason for Consult: acute on chronic anemia EMERGENT Consult: No Notified: Yes Date Notified: 06/07/22 Time Notified: 10:48 Method of Notification: Text 06/09/22 09:36 Consult: Ophthamology Routine Consulting Provider: Maury Almonte Reason for Consult: swollen, painful eye EMERGENT Consult: No Notified: Yes Date Notified: 06/09/22 Time Notified: 09:36 Method of Notification: Verbal Comments:: spoke with office nurse Reason For Visit: UTI / ACUTE METABOLIC ENCEPHALOPATHY Diagnosis Discharge Diagnosis (1) Ophthalmoplegia of right eye: Status: Acute Code(s): H49.9 - Unspecified paralytic strabismus (2) Orbital cellulitis, right: Status: Acute Code(s): H05.011 - Cellulitis of right orbit (3) Endogenous endophthalmitis: Status: Acute Code(s): H44.19 - Other endophthalmitis (4) MRSA bacteremia: Status: Acute Code(s): R78.81 - Bacteremia; B95.62 - Methicillin resistant Staphylococcus aureus infection as the cause of diseases classified elsewhere (5) Bacterial infection associated with peritoneal dialysis catheter: Status: Acute Code(s): T85.71XA - Infection and inflammatory reaction due to peritoneal dialysis catheter, initial encounter; A49.9 - Bacterial infection, unspecified Medications at Discharge Home Medications amlodipine 10 mg tablet 10 mg PO DAILY BP 08/07/21 aspirin 81 mg capsule 81 mg PO DAILY Heart 08/07/21 metoprolol tartrate 25 mg tablet 50 mg PO BID BP 08/07/21 atorvastatin 80 mg tablet 80 mg PO QHS Cholesterol 08/12/21 clopidogrel 75 mg tablet 75 mg PO DAILY Antiplatelet 08/12/21 polyethylene glycol 3350 17 gram oral powder packet 17 g PO DAILY Constipation 08/12/21 nystatin 100,000 unit/gram topical powder ([facility]) 1 applic topical TID redness 02/21/22 furosemide 40 mg tablet 40 mg PO BID 04/22/22 levothyroxine 125 mcg tablet 125 mcg PO DAILY 04/22/22 calcium carbonate 600 mg calcium (1,500 mg) tablet 600 mg PO BID 04/23/22 citalopram 20 mg tablet 20 mg PO DAILY 04/23/22 insulin lispro 100 unit/mL subcutaneous pen 0 unit subcut TID 04/23/22 melatonin 1 mg tablet 1 mg PO QHS 04/23/22 prednisone 10 mg tablet 5 mg PO QODAY 04/23/22 pantoprazole 40 mg tablet,delayed release 40 mg PO BID #60 tabs 04/26/22 doxycycline hyclate 50 mg capsule 50 cap PO 1200 05/18/22 acetaminophen 500 mg tablet 1,000 mg PO Q6H PRN pain/fever 06/04/22 bisacodyl 10 mg rectal suppository 10 mg [place] DAILY PRN Constipation 06/04/22 magnesium hydroxide 400 mg/5 mL oral suspension (Milk of Magnesia) 30 ml PO DAILY PRN Constipation 06/04/22 menthol 0.44 %-zinc oxide 20.6 % topical ointment 1 applic topical DAILY 06/04/22 ondansetron 4 mg disintegrating tablet 4 mg PO Q6H PRN Nausea 06/04/22 oxycodone 5 mg tablet 5 mg PO Q6H PRN Pain 06/04/22 triamcinolone acetonide 0.1 % topical ointment 1 applic topical BID 06/04/22 Hospital Course Operations None Procedures Colonoscopy and - (Removal of infected right IJ tunneled dialysis catheter, 06/04/22) Summary of Care Provided Minutes Spent on Discharge: 60 Hospital Course: 72-year-old female, resident in a prison, who presented with altered mental status and fever. Patient had a temperature of 103.3F on admission. She had complained of pain at the site of her dialysis catheter. Her pain appeared to be worsened by moving her arms. Blood cultures at dialysis was positive for MRSA. Patient was brought in when she was confused and lethargic in the retirement facility. Patient was found to also have acute UTI on admission. General surgery were consulted. Her right IJ tunneled dialysis catheter was removed on 06/04/22 and the tip sent for culture. There was purulent drainage from the exit site, at the time of removing the dialysis catheter. Patient blood cultures grew MRSA including the tip of the dialysis catheter. Patient was started on vancomycin and Zosyn. Infectious disease was consulted. A temporary dialysis catheter was placed on 06/05/22. Her repeat blood cultures on 06/09/2022 showed no growth preliminarily, final cultures were pending. TTE did not show any sign of endocarditis. A temporary dialysis catheter line was placed, patient had dialysis. Her hemoglobin admission was 6.2. She received 3 units of packed RBC, hemoglobin was up to 9.6. 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 Eryn alonzokeanu had colonoscopy done on 06/09/22 showed diverticulosis in the sigmoid colon at the hepatic flexure and in the ascending colon, 2 1 to 2 mm polyps in the sigmoid colon and transverse colon removed with hot snare, resected and retrieved. 1 5 mm polyp in the rectum, biopsied and treated with heater probe. Congested mucosa at the hepatic flexure that was biopsied. Internal hemorrhoids. Patient seen globin at time of discharge was 10.3. Patient's overall state of condition appeared to be slowly improving, she was more alert. During this hospital stay, patient was noted to have right eye sw elling and ptosis. Ophthalmology was consulted. Multiple right cranial nerve palsy this was seen. Patient was felt to have endogenous endophthalmitis of the right eye. She was recommended to be transferred to tertiary facility for imaging ophthalmology evaluation. Urgent MRI of the orbits and face was recommended. Patient was accepted by the [facility]. Physical Exam Narrative General: Alert, slightly lethargic, responds to questions and goes back to sleep, does not open the eyes, HEENT: Atraumatic, right eye is swollen, ptosis of the eye, tender to touch, patient unable to open the right eye Oral: Moist Mucosa Neck: Supple Lungs: Diminished to auscultation, Cardiovascular: Regular rate, Regular Rhythm, Normal S1, Normal S2, 3/6 ejection systolic murmur, left dialysis catheter Abdomen: Bowel Sounds Present, Soft, Non Tender, Non-Distended, No Hepato- splenomegaly Extremities: No edema Skin: No rashes Neurological: Lethargic Psych/Mental Status: Normal Affect, Appropriate Weight / BMI Weight Weight: 87.5 kg Body Mass Index (BMI) 34.2 ABG / Lab / Microbiology Data Result Diagrams: 06/09/22 06:15 06/09/22 06:15 Laboratory: Laboratory Results - last 24 hr 06/08/22 22:47: POC Glucose 181 H 06/09/22 05:53: POC Glucose 128 H 06/09/22 06:15: WBC 17.3 H, RBC 3.44 L, Hgb 10.3 L, Hct 31.5 L, MCV 91.6, MCH 29.9, MCHC 32.7, RDW Std Deviation 55.1 H, RDW Coeff of Jenna 16.4 H, Plt Count 279, MPV 9.5, Neut % (Auto) Not Reportable, Absolute Neuts (auto) 13.7 H, Absolute Lymphs (auto) 1.90, Total Counted 100, Neutrophils % (Manual) 77 H, Band Neutrophils % 2, Lymphocytes % (Manual) 11 L, Monocytes % (Manual) 6, Eosinophils % (Manual) 2, Myelocytes % 2 H, Diff Path Review May foll, Platelet Estimate ADEQUATE, Anisocytosis 1+, Microcytosis RARE, Macrocytosis RARE, Acanthocytes (Spur) 1+ 06/09/22 06:15: Sodium 132 L, Potassium 3.4 L, Chloride 96 L, Carbon Dioxide 26.0, Anion Gap 10, BUN 37 H, Creatinine 2.30 H, Estim Creat Clear Calc 18.29, Est GFR (MDRD) Af Amer 27 L, Est GFR (MDRD) Non-Af 22 L, BUN/Creatinine Ratio 16.1, Glucose 131 H, Calcium 7.6 L 06/09/22 06:15: Random Vancomycin 13.7 06/09/22 12:16: POC Glucose 110 H 06/09/22 16:05: POC Glucose 98 Microbiology: Microbiology 06/09/22 21:36 Nasal Secretion SARS-CoV-2 Antigen (Rapid) - Final 06/06/22 10:30 Blood Culture (Wb) - No Site/Description Given Blood Culture - Preliminary Meth. resistant Staph. aureus 06/06/22 10:15 Blood Culture (Wb) - No Site/Description Given Blood Culture - Preliminary Meth. resistant Staph. aureus 06/05/22 17:00 Blood Culture (Wb) - Left Hand Blood Culture - Preliminary Meth. resistant Staph. aureus 06/08/22 08:45 Blood Culture (Wb) - Anticubital Right Blood Culture - Prel iminary No growth in 48 hours. 06/05/22 17:45 Blood Culture (Wb) - Left Hand Blood Culture - Preliminary Staphylococcus aureus 06/04/22 18:15 Other - Dialysis/Fistula Miscellaneous Culture - Final Meth. resistant Staph. aureus 06/04/22 18:15 Other - Dialysis/Fistula Gram Stain - Final 06/04/22 07:34 Urine Catheter - Ryan Urine Culture - Final Enterobacter cloacae complex 06/04/22 08:10 Blood Culture (Wb) - Right Hand Blood Culture - Preliminary Staphylococcus aureus 06/04/22 07:34 Blood Culture (Wb) - Anticubital Right Bacteria Detection (PCR) - Final Staphylococcus aureus mecA Resistance Marker 06/04/22 07:34 Blood Culture (Wb) - Anticubital Right Blood Culture - Final Meth. resistant Staph. aureus D/C Instructions Discharge Diet: Renal Diet Meaningful Use Info Meaningful Use Diagnoses (Choose all that apply): None applicable Discharge Plan Admission Admit Date/Time: 06/04/22 10:16 Primary Reason for Your Visit: Acute metabolic encephalopathy, orbital cellulitis Attending Provider: Pritesh Cervantes Primary Care Provider: Jonh Solis Consulting Providers: Lai Muhammad ; Cira Strauss ; Dalia Zhao ; Tracey Booth ; Maury Almonte Discharge Orders/Prescriptions Prescriptions: No Action levothyroxine 125 mcg tablet 125 mcg PO DAILY Label Comments: take 1 tablet by mouth once daily furosemide 40 mg tablet 40 mg PO BID amlodipine 10 mg Tablet 10 mg PO DAILY metoprolol tartrate 25 mg Tablet 50 mg PO BID aspirin 81 mg Capsule 81 mg PO DAILY atorvastatin 80 MG tablet 80 mg PO QHS polyethylene glycol 3350 17 GM powder in packet 17 g PO DAILY clopidogrel 75 MG tablet 75 mg PO DAILY nystatin [Nyamyc] 100,000 unit/gram powder 1 applic topical TID Protocol: *Topical Application Instructions APPLICATION INSTRUCTIONS: groin/abdominal folds prednisone 10 mg Tablet 5 mg PO QODAY calcium carbonate 600 mg calcium (1,500 mg) Tablet 600 mg PO BID citalopram 20 mg Tablet 20 mg PO DAILY insulin lispro 100 unit/mL Insulin Pen 0 unit SUBCUT TID Label Comments: sliding scale BS 0-200- 0 units 201-250- 2 units 251-300- 4 units 301-350- 6 units greater than 350- 8 units melatonin 1 mg Tablet 1 mg PO QHS pantoprazole 40 mg tablet,delayed release (DR/EC) 40 mg PO BID Qty: 60 1RF doxycycline hyclate 50 mg capsule 50 cap PO 1200 acetaminophen 500 mg Tablet 1,000 mg PO Q6H PRN (Reason: pain/fever) bisacodyl 10 mg Suppository 10 mg [place] DAILY PRN (Reason: Constipation) magnesium hydroxide [Milk of Magnesia] 400 mg/5 mL Suspension 30 ml PO DAILY PRN (Reason: Constipation) triamcinolone acetonide 0.1 % Ointment 1 applic TOPICAL BID ondansetron 4 mg Tablet,Disintegrating 4 mg PO Q6H PRN (Reason: Nausea) oxycodone 5 mg Tablet 5 mg PO Q6H PRN (Reason: Pain) menthol-zinc oxide 0.44-20.6 % Ointment 1 applic TOPICAL DAILY Referrals / Follow Up: Jonh Solis MD [Primary Care Provider] - Charges/Coding Visit Charges Inpatient E&M: 59371 Disch Hosp
[2022-06-10 00:46] LABS: Bedside Glucose 94 mg/dL (74-106)
--- NOTE | 2022-06-10 01:18 | NURSING ---
Per Dr. Luciano this nurse called and cancelled transfer to talked with Victoriano in transfer
[2022-06-10 02:57] VITALS: BP 158/67; PULSE 55; RESP 16; TEMP 36.8; O2SAT 100
--- NOTE | 2022-06-10 02:58 | DCINST_ITS ---
Discharge Instructions Diet Discharge Diet: Renal Diet Follow Up Care Test Results: Test results from this visit will be discussed in further detail at your follow- up appointment, if applicable. Discharge Plan Admission Admit Date/Time: 06/04/22 10:16 Primary Reason for Your Visit: Acute metabolic encephalopathy, orbital cellulitis Attending Provider: Pritesh Cervantes Primary Care Provider: Jonh Solis Consulting Providers: Lai Muhammad ; Cira Strauss ; Dalia Zhao ; Tracey Booth ; Maury Almonte Discharge Orders/Prescriptions Prescriptions: No Action levothyroxine 125 mcg tablet 125 mcg PO DAILY Label Comments: take 1 tablet by mouth once daily furosemide 40 mg tablet 40 mg PO BID amlodipine 10 mg Tablet 10 mg PO DAILY metoprolol tartrate 25 mg Tablet 50 mg PO BID aspirin 81 mg Capsule 81 mg PO DAILY atorvastatin 80 MG tablet 80 mg PO QHS polyethylene glycol 3350 17 GM powder in packet 17 g PO DAILY clopidogrel 75 MG tablet 75 mg PO DAILY nystatin [Nyamyc] 100,000 unit/gram powder 1 applic topical TID Protocol: *Topical Application Instructions APPLICATION INSTRUCTIONS: groin/abdominal folds prednisone 10 mg Tablet 5 mg PO QODAY calcium carbonate 600 mg calcium (1,500 mg) Tablet 600 mg PO BID citalopram 20 mg Tablet 20 mg PO DAILY insulin lispro 100 unit/mL Insulin Pen 0 unit SUBCUT TID Label Comments: sliding scale BS 0-200- 0 units 201-250- 2 units 251-300- 4 units 301-350- 6 units greater than 350- 8 units melatonin 1 mg Tablet 1 mg PO QHS pantoprazole 40 mg tablet,delayed release (DR/EC) 40 mg PO BID Qty: 60 1RF doxycycline hyclate 50 mg capsule 50 cap PO 1200 acetaminophen 500 mg Tablet 1,000 mg PO Q6H PRN (Reason: pain/fever) bisacodyl 10 mg Suppository 10 mg NE DAILY PRN (Reason: Constipation) magnesium hydroxide [Milk of Magnesia] 400 mg/5 mL Suspension 30 ml PO DAILY PRN (Reason: Constipation) triamcinolone acetonide 0.1 % Ointment 1 applic TOPICAL BID ondansetron 4 mg Tablet,Disintegrating 4 mg PO Q6H PRN (Reason: Nausea) oxycodone 5 mg Tablet 5 mg PO Q6H PRN (Reason: Pain) menthol-zinc oxide 0.44-20.6 % Ointment 1 applic TOPICAL DAILY Referrals / Follow Up: Jonh Solis MD [Primary Care Provider] - Disposition Disposition (needs filled in before D/C Order can be placed): Acute [facility]
[2022-06-10 03:00] VITALS: BP 158/67; PULSE 55; RESP 16; TEMP 36.8; O2SAT 100
[2022-06-10 05:41] LABS: Hematocrit 28.7 % (37-47); Hemoglobin 9.6 g/dL (12.0-15.0); Mean Corp Hgb Conc 33.4 g/dL (32-36); Mean Corpuscular Hgb 30.2 pg (27.0-32.0); Mean Corpuscular Volume 90.3 fL (81-99); Mean Platelet Vol. 9.3 fl (6.2-12.0); POSITIVE COUNT YES; POSITIVE MORPHOLOGY YES; Platelet Count 273 K/mm3 (150-450); RBC Distribution Width CV 16.4 % (11.6-14.6); RBC Distribution Width SD 54.3 fl (35.1-43.9); Red Blood Count 3.18 M/mm3 (4.2-5.4); White Blood Count 18.3 K/mm3 (4.4-11.0)
[2022-06-10 05:47] LABS: Differential Indicated MANUAL DIFF
[2022-06-10 06:03] LABS: Lymphocyte 4 % (19-41); Metamyelocyte 1 % (0-1); Monocyte 5 % (0-10); Myelocyte 1 % (0-0); Neutrophil-Band 3 % (0-5); Neutrophil-Segmented 86 % (47-70); Platelet Estimate ADEQUATE (ADEQ); Total Cells Counted 100 (MANUAL DIFF)
[2022-06-10 06:04] LABS: Acanthocytes RARE; Anisocytosis 1+
[2022-06-10 06:05] LABS: Absolute Lymphocyte Count 0.73 X10^3/uL (0.83-4.51); Absolute Neutrophil Count 16.2 X10^3/uL (2.0-7.7); Anion Gap 6 (5-15); BUN 23 mg/dL (7-18); BUN/Creat Ratio 14.3 RATIO (10-20); Calcium,Total 7.5 mg/dL (8.5-10.1); Chloride 101 mmol/L (98-107); Creatinine, Serum 1.61 mg/dL (0.55-1.02); EST Glomerular Filtration Rate 33 mL/min (>60); Est Glom Filt Rate - Afr Amer 40 mL/min (>60); Estimated Creatinine Clearance 26.13 ml/min; Glucose 102 mg/dL (74-106); Lymphocyte # 0.73 X10^3/ul (0.83-4.51); Neutrophil # 16.24 X10^3/uL (2.7-7.7); Potassium 3.5 mmol/L (3.5-5.1); Sodium Level 134 mmol/L (136-145)
--- NOTE | 2022-06-10 07:42 | CASEMGMT ---
Social Work Note SW reviewed chart, pt was transferred to [facility]. SARA placed a call to Lori at [facility] and left message updating her pt was transferred. Carmella Prabhakar COUNTER SALES PERSON, REAL ESTATE FINANCIAL ANALYST
[2022-06-10 12:14] LABS: Pathologist Review Reviewed
[2022-06-10 12:19] LABS: Pathologist Review Reviewed
== END 2022-06-10 06:03 | disposition short-term general hospital (02) | DRG 314 ==
LOC: ED 10:04 → PCU 10:32
PROVIDERS: Internal Medicine Gastroenterology; Internal Medicine Infectious Disease; Admitting Provider Student in an Organized Health Care Education/Training Program; Emergency Provider Emergency Medicine; PCP Family Medicine; Visit Provider Family Medicine
PROC: 0DJD8ZZ Inspection of Lower Intestinal Tract, Via Natural or Artificial Opening Endoscopic (ICD-10-PCS; CPT 45378; principal; 2022-06-09 07:25)
DX: T80.211A Bloodstream infection due to central venous catheter, initial encounter (principal); N18.6 End stage renal disease; G93.41 Metabolic encephalopathy; R78.81 Bacteremia; I13.0 Hypertensive heart and chronic kidney disease with heart failure and stage 1 through stage 4 chronic kidney disease, or unspecified chronic kidney disease; E87.1 Hypo-osmolality and hyponatremia; H05.011 Cellulitis of right orbit; H44.19 Other endophthalmitis; I13.2 Hypertensive heart and chronic kidney disease with heart failure and with stage 5 chronic kidney disease, or end stage renal disease; I50.32 Chronic diastolic (congestive) heart failure; T85.71XA Infection and inflammatory reaction due to peritoneal dialysis catheter, initial encounter; N39.0 Urinary tract infection, site not specified; E11.649 Type 2 diabetes mellitus with hypoglycemia without coma; E11.22 Type 2 diabetes mellitus with diabetic chronic kidney disease; Z79.4 Long term (current) use of insulin; Z99.2 Dependence on renal dialysis; E11.51 Type 2 diabetes mellitus with diabetic peripheral angiopathy without gangrene; I25.10 Atherosclerotic heart disease of native coronary artery without angina pectoris; E78.5 Hyperlipidemia, unspecified; K29.70 Gastritis, unspecified, without bleeding; E87.6 Hypokalemia; D50.0 Iron deficiency anemia secondary to blood loss (chronic); K62.1 Rectal polyp; K57.30 Diverticulosis of large intestine without perforation or abscess without bleeding; K64.8 Other hemorrhoids; K63.5 Polyp of colon; K44.9 Diaphragmatic hernia without obstruction or gangrene; H49.9 Unspecified paralytic strabismus; B95.62 Methicillin resistant Staphylococcus aureus infection as the cause of diseases classified elsewhere; R79.1 Abnormal coagulation profile; F32.A Depression, unspecified; R53.81 Other malaise; B96.89 Other specified bacterial agents as the cause of diseases classified elsewhere; Z90.49 Acquired absence of other specified parts of digestive tract; Z95.1 Presence of aortocoronary bypass graft
CPT/HCPCS: 36415; 71045; 80048; 80053; 80202; 81001; 82962; 83605; 84484; 85014; 85018; 85025; 85610; 85730; 86850; 86900; 86901; 86920; 86922; 87040; 87070; 87077; 87086; 87088; 87149; 87186; 87205; 87811; 88305; 90937; 92526; 92610; 93005; 93306; 93308; 97110; 97162; 97166; 97530; 97802; 99251; 99285; J0878; J7030; J7040; J7050; P9016; Q9957; A4216; C1752; G0257; G0463; J2405; J3490; Q5106

== ENCOUNTER 2022-08-06 07:59 | Inpatient (IN) | payer MEDICARE, MEDICAID, SELFPAY ==
[2022-08-06] VITALS (38 sets, daily range): BP systolic 75–113; BP diastolic 43–58; PULSE 69–78; RESP 10–19; TEMP 35.8–37.5; O2SAT 93–100; BMI 33.3; BMI 32.2
--- NOTE | 2022-08-06 08:18 | EKG12_ITS ---
Test Reason : Blood Pressure : / mmHG Vent. Rate : 071 BPM Atrial Rate : 071 BPM P-R Int : 152 ms QRS Dur : 068 ms QT Int : 450 ms P-R-T Axes : 021 -06 -16 degrees QTc Int : 489 ms Normal sinus rhythm Inferior infarct , age undetermined Abnormal ECG Confirmed by CHANDLER NELSON, MADELIN ([id number]), graphic editor GYPSY BASS ([id number]) on 08/07/2022 10:10:38 AM Referred By: LARISA Confirmed By:MADELIN ARTEAGA MD
--- NOTE | 2022-08-06 08:23 | CT_ITS ---
STUDY: CT BRAIN WITHOUT CONTRAST REASON FOR EXAM: Female, 72 years old. Altered mental status RADIATION DOSAGE (If Supplied By Facility): CTDIvol = ( 44.99 ) mGy, DLP = ( 846.73 ) mGycm TECHNIQUE: Transaxial CT imaging of the brain was performed without administration of intravenous contrast material. Individualized dose optimization techniques were used for this CT. COMPARISON: Comparison is made with prior study dated 02/21/2022. FINDINGS: Normal soft tissue structures. There is hyperostosis frontalis internus. There is mild cerebral atrophy with widening of the extra-axial spaces and ventricular dilatation. There are areas of decreased attenuation within the white matter tracts of the supratentorial brain, consistent with microvascular disease changes. Stable old lacunar infarct of the right basal ganglia. Normal brainstem. Normal cerebellum. There is no intracranial hemorrhage. There are no findings of an acute ischemic infarction. Dense atherosclerotic calcification of the vertebral arteries bilaterally as well as the basilar tip. Mucosal thickening of the ethmoid sinuses bilaterally. Partial opacification of the left frontal sinus. CT/Brain/Head without Contrast IMPRESSION: Chronic involutional changes of the brain. Mild degree of ethmoid sinusitis and left frontal sinusitis. Electronically Signed: Donny Mariee MD at 9:44 EDT ,
--- NOTE | 2022-08-06 08:23 | EDS_ITS ---
HPI History of Present Illness Chief Complaint: Hypoglycemia Informant: family and EMS Narrative Narrative: Patient brought in by EMS from custodial for call for altered mental status found to be hypoglycemic blood glucose of 31. Status post bolus D10 glucose up to 120. Patient is diabetic, I reviewed her medical records she currently not on any oral medicines or insulin. She had sliding scale as needed insulin from hospitalization nearly 2 months ago. Daughter currently present states she has been eating less therefore they have been not giving her any insulin. She has had a long hospitalization here recently. She was in the hospital here for er and altered mental status. She ended up with MRSA infection to her dialysis cath, she developed right endophthalmitis which required transfer to [facility] from here. She ended up being transferred up to [facility] per daughter. 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 She gets dialysis Tuesdays and Saturdays. There is plans for blood transfusions today. Reported she was checked on today was unresponsive and EMS was contacted. Patient had a stroke 4 years ago with left-sided weakness and has not walked since then per daughter. She currently does not make urine. History of 5 vessel bypass years ago with records noting heart failure preserved ejection fraction. Prior similar symptoms: Yes PFSH PFSH Medical History (HFpEF) heart failure with preserved ejection fraction Anemia Anxiety Atherosclerosis of coronary artery of [place] heart without angina pectoris Bruising Cardiology follow-up encounter Cellulitis of left lower limb Chronic headaches Chronic kidney disease (CKD) Chronic ulcer of left foot with necrosis of muscle Current use of insulin Depression Diabetic foot infection Diabetic nephropathy Dietary restriction Difficulty chewing Difficulty swallowing DM (diabetes mellitus), type 2, uncontrolled DVT (deep venous thrombosis) Dyspnea Easy bruising Essential hypertension Gastric reflux History of CHF (congestive heart failure) History of echocardiogram History of edema History of heart attack History of irregular heartbeat History of leukemia History of non-ST elevation myocardial infarction (NSTEMI) (01/13/20) History of steroid therapy Hypertension Insulin dependent diabetes mellitus Irregular heartbeat Kidney calculi Left foot infection Leg cramps Low iron Malnutrition Myocardial infarction Non-smoker Open wound Paralysis Peripheral vascular disease Post-menopausal Pre-op testing Pressure ulcer Rash Renal disease Restless legs Shortness of breath on exertion Sleep apnea Status post amputation of toe of left foot Stroke Thyroid disease Thyroiditis Type 2 diabetes mellitus with diabetic foot infection Ulcer Ulcer of left foot due to type 2 diabetes mellitus Upper gastrointestinal bleeding Home Medications amlodipine 10 mg tablet 10 mg PO DAILY BP 08/07/21 [History Last Taken Unknown] aspirin 81 mg capsule 81 mg PO DAILY Heart 08/07/21 [History Last Taken Unknown] metoprolol tartrate 25 mg tablet 50 mg PO BID BP 08/07/21 [History Last Taken Unknown] atorvastatin 80 mg tablet 80 mg PO QHS Cholesterol 08/12/21 [History Last Taken Unknown] clopidogrel 75 mg tablet 75 mg PO DAILY Antiplatelet 08/12/21 [History Last Taken Unknown] polyethylene glycol 3350 17 gram oral powder packet 17 g PO DAILY Constipation 08/12/21 [History Last Taken Unknown] nystatin 100,000 unit/gram topical powder (Nyamyc) 1 applic topical TID redness 02/21/22 [History Last Taken Unknown] furosemide 40 mg tablet 40 mg PO BID 04/22/22 [History Last Taken Unknown] levothyroxine 125 mcg tablet 125 mcg PO DAILY 04/22/22 [History Last Taken Unknown] calcium carbonate 600 mg calcium (1,500 mg) tablet 600 mg PO BID 04/23/22 [History Last Taken Unknown] citalopram 20 mg tablet 20 mg PO DAILY 04/23/22 [History Last Taken Unknown] insulin lispro 100 unit/mL subcutaneous pen 0 unit subcut TID 04/23/22 [History Last Taken Unknown] melatonin 1 mg tablet 1 mg PO QHS 04/23/22 [History Last Taken Unknown] prednisone 10 mg tablet 5 mg PO QODAY 04/23/22 [History Last Taken Unknown] pantoprazole 40 mg tablet,delayed release 40 mg PO BID #60 tabs 04/26/22 [Rx Last Taken Unknown] doxycycline hyclate 50 mg capsule 50 cap PO 1200 05/18/22 [History Last Taken Unknown] acetaminophen 500 mg tablet 1,000 mg PO Q6H PRN pain/fever 06/04/22 [History Last Taken Unknown] bisacodyl 10 mg rectal suppository 10 mg IN DAILY PRN Constipation 06/04/22 [History Last Taken Unknown] magnesium hydroxide 400 mg/5 mL oral suspension (Milk of Magnesia) 30 ml PO DAILY PRN Constipation 06/04/22 [History Last Taken Unknown] menthol 0.44 %-zinc oxide 20.6 % topical ointment 1 applic topical DAILY 06/04/22 [History Last Taken Unknown] ondansetron 4 mg disintegrating tablet 4 mg PO Q6H PRN Nausea 06/04/22 [History Last Taken Unknown] oxycodone 5 mg tablet 5 mg PO Q6H PRN Pain 06/04/22 [History Last Taken Unknown] triamcinolone acetonide 0.1 % topical ointment 1 applic topical BID 06/04/22 [History Last Taken Unknown] carvedilol 12.5 mg tablet 12.5 mg PO BID 08/06/22 [History Last Taken Unknown] Allergy/AdvReac Type Severity Reaction Status Date / Time baclofen AdvReac Other Verified 06/04/22 07:25 Family History Mother CVA (cerebral vascular accident) Other Diabetes Heart disease Surgical History H/O coronary artery bypass surgery History of heart artery stent S/P tubal ligation Status post arterial stent Status post coronary artery bypass graft Status post coronary artery stent placement Status post hysterectomy Status post transmetatarsal amputation of left foot Social History household members: children housing: custodial Smoking Status: Never smoker ROS ROS ED Review of Systems ROS Unobtainable: due to mental condition EXAM Physical Exam Const Vital Signs: 08/06/22 08:00 08/06/22 08:08 08/06/22 08:21 Temperature 96.8 F L Temperature Source Temporal Pulse Rate 72 72 Respiratory Rate 14 13 Blood Pressure 81/45 L 79/52 L Blood Pressure Mean 57 61 Pulse Ox 93 95 98 Oxygen Delivery Method Room Air Room Air Room Air 08/06/22 08:49 08/06/22 09:17 08/06/22 09:49 Temperature Temperature Source Pulse Rate 73 72 71 Respiratory Rate 16 11 L 19 H Blood Pressure 88/46 L 81/46 L 85/44 L Blood Pressure Mean 60 57 57 Pulse Ox 97 98 99 Oxygen Delivery Method Room Air Room Air Room Air 08/06/22 10:05 08/06/22 10:36 08/06/22 11:05 Temperature Temperature Source Pulse Rate 71 72 71 Respiratory Rate 16 13 15 Blood Pressure 85/44 L 80/51 L 80/51 L Blood Pressure Mean 57 60 60 Pulse Ox 100 99 99 Oxygen Delivery Method Room Air Room Air Room Air 08/06/22 11:16 08/06/22 11:50 Temperature 97.6 F L Temperature Source Axillary Pulse Rate 70 71 Respiratory Rate 18 17 Blood Pressure 94/48 L 84/50 L Blood Pressure Mean 63 61 Pulse Ox 100 100 Oxygen Delivery Method Room Air Room Air Constitutional Narrative: Patient protecting airway, moaning at times however able to redirect and stating her name. HEENT Reports dry mucous membranes normocephalic and atraumatic Mouth ED: Yes dry mucous membranes Mouth: dry mucous membranes Eyes Eyes Narrative: Noninjected and of the eyes. Neck supple General: Negative for tenderness Chest Wall Chest: Negative for tenderness Resp Resp Narrative: Midline chest scar. Effort and Inspection: symmetric chest movement; Negative for respiratory distress Cardio regular rate, regular rhythm and no murmurs Peripheral Pulses: pulses 2+ throughout GI normal to inspection, nondistended, normoactive bowel sounds and non-tender Palpation: Negative for guarding or rebound tenderness present Back/Spine no CVA tenderness and no thoracic nor lumbar tenderness Back/Spine Narrative: Stage I pressure sore to sacrum with skin excoriation of the skin under DuoDERM patch. There is no ulcerations. Extremity Extremity Narrative: Heel pads bilaterally, previous distal toe amputation of the left foot. General Extremety ED: Negative for edema or tenderness General Extremity: Negative for edema Neuro Neuro Narrative: Alert to person. Residual weakness to the left side. Skin Skin Narrative: See above Sepsis Attestation Sepsis Alert: Yes Sepsis Attestation: Agree w/Sepsis Date exam was performed: 08/06/22 Time exam was performed: 08:45 Possible Source of Sepsis: Unknown Sepsis Organ Dysfunction Criteria Present: SBP < 90 mmHg or MAP < 65 mmHg, Creatinine > 2.0 mg/dL and New/Unexplained change in mental status Supportive Findings: Persistent hypotension, recent MRSA bacteremia Fluid Resuscitation Fluid resuscitation indicated?: Yes Fluid Resuscitation ordered: 30 ml/kg fluid bolus ordered Sepsis Note Date exam was performed: 08/06/22 Time exam was performed: 10:45 Sepsis Attestation: Sepsis re-evaluation was performed Response to fluids: Fluid responsive hypotension MDM MDM MDM Narrative Medical decision making narrative: Patient hypotensive upon arrival. Sepsis labs were ordered. Recheck glucose down the 80s she started on D5 normal saline. She is currently not on any diabetic medications. Recent known MRSA bacteremia with recurrent right chest Vas-Cath. She has a stage I pressure sore does not appear infected. Zosyn vancomycin ordered. She initiated on a liter IV fluid bolus with additional 2 L afterwards during management. Initial chest x-ray 1 view reviewed by myself read radiology questionable she is no respiratory distress 100% on room air. Infiltrate right lower lobe. Alert and oriented x1. Head CT obtained which was negative. EKG is sinus rhythm. Pressure still soft in the 80s with fluids, d iscussed with daughter for placement of central line for potential pressors. She agreed written consent obtained. Attempted left IJ due to right-sided Vas- Cath however due to scarring from her previous Vas-Cath placement, unable to thread the wire. This was discontinued. Discussed with daughter Marc line however will likely need replaced after 24 hours she states if there is another alternative. Discussed possible PICC line, however this needed clearance by nephrology. I discussed with her ethnographic materials conservator Dr. Leanna Chandra, she has plan mapping of her veins did not want a PICC line for planned fistula placement. Discussed patient's lab findings hemoglobin 5.8 however her electrolytes are normal, due to her blood pressure unable to do dialysis therefore recommended starting blood. This was ready in the lab as planned as an outpatient therefore 2 units ordered to be transfused. Pressures up to systolic 90s with a map of 60s. She does not make urine for concerns of infection there. This time with her hypoglycemia and hypotension concerns for sepsis bacteremia. I discussed with hospitalist, Dr. Basurto, for ICU placement. Likely get surgery involved for line placement if needed. Patient admitted to the ICU. Additionally I did also speak with optical engineering manager Dr. Villarreal, who came down to the ED and updated patient's history and findings. She will help manage the patient in the ICU. Pressors will be started in ICU if needed. Procedure note: Central line placement. Written consent. Patient placed in Trendelenburg. Ultrasound guided visualization in the left IJ above scarring from previous Vas-Cath. Seldinger technique with needle after analgesia. No intermittent puncture with dark blood return however there is no good flow. Redirected multiple times with really minimal flow. Attempted guidewire however there was resistance. Multiple attempts, unable to advance guidewire. Procedure was stopped. Pressure to the wound with dressing placed. Post proc edure chest x-ray reviewed by myself read by radiology shows no pneumothorax, also noted clearing of infiltrate with concerns from initial chest x-ray. Lab Data Attestation: I reviewed the patient's lab results. Labs: Laboratory Results - last 24 hr 08/06/22 08/06/22 08/06/22 05:08 08:15 08:45 WBC 11.6 H RBC 1.95 L Hgb 5.8 L* Hct 18.8 L MCV 96.4 MCH 29.7 MCHC 30.9 L RDW Std Deviation 61.1 H RDW Coeff of Jenna 17.5 H Plt Count 226 MPV 10.6 Immature Gran % (Auto) 0.900 Neut % (Auto) 88.4 H Lymph % (Auto) 5.7 L [place] % (Auto) 4.7 Eos % (Auto) 0.2 Baso % (Auto) 0.1 Absolute Neuts (auto) 10.3 H Absolute Lymphs (auto) 0.66 L Nucleated RBC % 0 Differential Comment COMMENT Diff Path Review May foll PT INR APTT Sodium Potassium Chloride Carbon Dioxide Anion Gap BUN Creatinine Estim Creat Clear Calc Est GFR (MDRD) Af Amer Est GFR (MDRD) Non-Af BUN/Creatinine Ratio Glucose Lactic Acid Calcium Total Bilirubin AST ALT Alkaline Phosphatase Total Protein Albumin Globulin Albumin/Globulin Ratio POC Glucose 83 Blood Type AB POSITIVE Antibody Screen NEGATIVE Crossmatch See Detail 08/06/22 08/06/22 08/06/22 08:45 08:45 08:45 WBC RBC Hgb Hct MCV MCH MCHC RDW Std Deviation RDW Coeff of Jenna Plt Count MPV Immature Gran % (Auto) Neut % (Auto) Lymph % (Auto) [place] % (Auto) Eos % (Auto) Baso % (Auto) Absolute Neuts (auto) Absolute Lymphs (auto) Nucleated RBC % Differential Comment Diff Path Review PT 17.9 H INR 1.5 APTT 47.7 H Sodium 141 Potassium 4.2 Chloride 102 Carbon Dioxide 32.0 Anion Gap 7 BUN 12 Creatinine 2.10 H Estim Creat Clear Calc 21.79 Est GFR (MDRD) Af Amer 30 L Est GFR (MDRD) Non-Af 25 L BUN/Creatinine Ratio 5.7 L Glucose 76 Lactic Acid 0.8 Calcium 6.2 L* Total Bilirubin 0.80 AST 91 H ALT 27 Alkaline Phosphatase 235 H Total Protein 4.8 L Albumin 1.1 L Globulin 3.7 Albumin/Globulin Ratio 0.3 L POC Glucose Blood Type Antibody Screen Crossmatch 08/06/22 08/06/22 08/06/22 09:07 09:48 11:55 WBC RBC Hgb Hct MCV MCH MCHC RDW Std Deviation RDW Coeff of Jenna Plt Count MPV Immature Gran % (Auto) Neut % (Auto) Lymph % (Auto) [place] % (Auto) Eos % (Auto) Baso % (Auto) Absolute Neuts (auto) Absolute Lymphs (auto) Nucleated RBC % Differential Comment Diff Path Review PT INR APTT Sodium Potassium Chloride Carbon Dioxide Anion Gap BUN Creatinine Estim Creat Clear Calc Est GFR (MDRD) Af Amer Est GFR (MDRD) Non-Af BUN/Creatinine Ratio Glucose Lactic Acid Calcium Total Bilirubin AST ALT Alkaline Phosphatase Total Protein Albumin Globulin Albumin/Globulin Ratio POC Glucose 84 85 103 Blood Type Antibody Screen Crossmatch Radiography Diagnostic Testing: Clinical Impression(s) from Imaging Studies Brain CT 08/06/22 08:23 IMPRESSION: Chronic involutional changes of the brain. Mild degree of ethmoid sinusitis and left frontal sinusitis. Electronically Signed: Donny Mariee MD at 9:44 EDT , Chest X-Ray 08/06/22 09:30 IMPRESSION: Mild increased markings in the right infrahilar region. Early infiltrate should be ruled out. Electronically Signed: Donny Mariee MD at 9:46 EDT , Chest X-Ray 08/06/22 10:54 IMPRESSION: Improved aeration at the right lung base. Electronically Signed: Donny Mariee MD at 11:15 EDT , EKG Initial EKG: Attestation: I personally reviewed and interpreted this EKG as follows: Comments: Sinus rate of 71, no ST changes. Critical Care Time Critical Care Time: Yes Critical care time (excluding procedures): 30-74 minutes, Discussing w/Patient &/or Family/Crossbow Maker, Discussing w/Consultants, Arranging Admission or Transfer, Performing Direct Patient Care at Bedside and - (50 minutes) Discharge Plan Dx/Rx/DC Orders Clinical Impression: Septic shock, H/O coronary artery bypass surgery, (HFpEF) heart failure with preserved ejection fraction, ESRD (end stage renal disease) on dialysis, Anemia, Hypotension, Acute encephalopathy, Pressure injury of sacral region, stage 1, History of cerebrovascular accident, History of MRSA infection Disposition Disposition: [facility] Discharge Date/Time: 08/06/22 13:06
[2022-08-06] MEDS: 0.9% Normal Saline 1,000 ML 999 ML IV ×3 (08:27→11:16)
[2022-08-06] MEDS: Dextrose 5%/0.9% NaCl 1,000 ML 125 ML IV (08:30)
[2022-08-06 08:35] LABS: Bedside Glucose 83 mg/dL (74-106)
[2022-08-06 09:03] LABS: Absolute Lymphocyte Count 0.66 X10^3/uL (0.83-4.51); Absolute Neutrophil Count 10.3 X10^3/uL (2.0-7.7); Basophil# 0.01 X10^3/uL; Basophil% 0.1 % (0-1); Eosinophil# 0.02 X10^3/uL; Eosinophils% 0.2 % (0-5); Hematocrit 18.8 % (37-47); Lymphocyte # 0.66 X10^3/ul (0.83-4.51); Lymphocyte % 5.7 % (19-41); Mean Corp Hgb Conc 30.9 g/dL (32-36); Mean Corpuscular Hgb 29.7 pg (27.0-32.0); Mean Corpuscular Volume 96.4 fL (81-99); Mean Platelet Vol. 10.6 fl (6.2-12.0); Monocyte# 0.54 X10^3/uL; Monocyte% 4.7 % (0-10); NRBC Flagged by Analyzer 0 % (0-5); Neutrophil # 10.27 X10^3/uL (2.7-7.7); Neutrophil % 88.4 % (47-70); POSITIVE COUNT YES; Platelet Count 226 K/mm3 (150-450); RBC Distribution Width CV 17.5 % (11.6-14.6); RBC Distribution Width SD 61.1 fl (35.1-43.9); Red Blood Count 1.95 M/mm3 (4.2-5.4); White Blood Count 11.6 K/mm3 (4.4-11.0)
--- NOTE | 2022-08-06 09:09 | ED.RN ---
spoke with mary at [facility]. they do not do bgl because she doesnt get any meds. pt was checked and changed at 0430. found unresponsive and moaning at 0630.
--- NOTE | 2022-08-06 09:10 | ED.RN ---
blood bank called stating that we do not need to type and screen d/t pt being scheduled for transfusion today. they already have blood ready for her.
[2022-08-06 09:13] LABS: Differential Indicated SCAN CRITERIA MET; Hemoglobin 5.8 g/dL (12.0-15.0)
[2022-08-06 09:25] LABS: International Normalized Ratio 1.5; Prothrombin Time (Protime)PT. 17.9 SECONDS (11.7-14.9)
[2022-08-06 09:26] LABS: Partial Thromboplast Time 47.7 Seconds (24.1-36.2)
[2022-08-06 09:26] LABS: Bedside Glucose 84 mg/dL (74-106)
--- NOTE | 2022-08-06 09:30 | RAD_ITS ---
STUDY: X-RAY CHEST REASON FOR EXAM: Female, 72 years old. Hypotension TECHNIQUE: Single AP portable view of the chest. COMPARISON: Comparison is made with prior study 06/05/2022. FINDINGS: A right-sided dialysis catheter is seen with the tip in the right atrium. EKG electrodes are seen. Surgical clips are seen overlying the thyroid region. Mild increased markings in the right infrahilar region suggestive of possible early infiltrate. There is no demonstrated pleural abnormality. Sternal cerclage wires and vascular clips are present from a prior sternotomy and coronary artery bypass graft procedure (CABG). Normal mediastinum and emma. Normal visualized pulmonary arteries. There is atherosclerotic tortuosity of the aortic arch and descending thoracic aorta. There are degenerative changes of the visualized thoracic spine. Normal visualized ribs, clavicles, and shoulders. There is no demonstrated abnormality of the visualized soft tissue structures of the upper abdomen. RAD/Chest 1 View (Portable) IMPRESSION: Mild increased markings in the right infrahilar region. Early infiltrate should be ruled out. Electronically Signed: Donny Mariee MD at 9:46 EDT ,
[2022-08-06 09:36] LABS: Lactic Acid 0.8 mmol/L (0.4-1.9)
[2022-08-06 09:49] LABS: ALB/GLOB Ratio 0.3 RATIO (0.9-2.4); AST(SGOT) 91 U/L (15-37); Alanine Aminotransfer ALT/SGPT 27 U/L (13-56); Albumin, Serum 1.1 g/dL (3.2-5.0); Alkaline Phosphatase 235 U/L (45-117); Anion Gap 7 (5-15); BUN 12 mg/dL (7-18); BUN/Creat Ratio 5.7 RATIO (10-20); Calcium,Total 6.2 mg/dL (8.5-10.1); Chloride 102 mmol/L (98-107); EST Glomerular Filtration Rate 25 mL/min (>60); Est Glom Filt Rate - Afr Amer 30 mL/min (>60); Estimated Creatinine Clearance 21.79 ml/min; Globulin 3.7 g/dL (2.2-4.2); Glucose 76 mg/dL (74-106); Potassium 4.2 mmol/L (3.5-5.1); Protein, Total 4.8 g/dL (6.4-8.2); Sodium Level 141 mmol/L (136-145)
[2022-08-06 10:11] LABS: Bedside Glucose 85 mg/dL (74-106)
--- NOTE | 2022-08-06 10:38 | ED.RN ---
unable to access lt IJ d/t scar tissue. provider speaking with daughter and discussing options.
--- NOTE | 2022-08-06 10:54 | RAD_ITS ---
STUDY: X-RAY CHEST REASON FOR EXAM: Female, 72 years old. Post central line attempt TECHNIQUE: Single AP portable view of the chest. COMPARISON: Comparison is made with prior study done earlier today at 9:25 AM. FINDINGS: A right-sided double-lumen catheter seen with the tip in the right atrium. EKG electrodes are seen. Surgical clips are seen overlying the thyroid. The lungs are clear and expanded. There is no demonstrated pleural abnormality. Normal size heart. Normal mediastinum and emma. Normal visualized pulmonary arteries. There is atherosclerotic calcification of the aortic arch with tortuosity. Normal visualized thoracic spine. Normal visualized ribs, clavicles, and shoulders. There is no demonstrated abnormality of the visualized soft tissue structures of the upper abdomen. RAD/CXR for Line Placement IMPRESSION: Improved aeration at the right lung base. Electronically Signed: Donny Mariee MD at 11:15 EDT ,
[2022-08-06 13:46] LABS: Bedside Glucose 103 mg/dL (74-106)
[2022-08-06 14:00] LABS: Bedside Glucose 127 mg/dL (74-106)
--- NOTE | 2022-08-06 14:00 | PCM.CONS.R ---
Assessment & Plan Assessment/Plan (1) ESRD (end stage renal disease) on dialysis: PLAN: dialysis TTS, last treatment Wednesday. Hold dialysis today due to hypotension, stable lytes. BUN low with albumin 1.1. Reassess for dialysis tomorrow. (2) Altered mental status: PLAN: hypoglycemia with hypotension eval for sepsis. Blood cx x2 (3) Hypoglycemia: PLAN: corrected (4) Anemia: PLAN: hgb 5.8g prbc as needed (5) Hypotension: PLAN: pressor support (6) Diabetes mellitus type 2 in obese: (7) Severe protein-calorie malnutrition: PLAN: albumin 1.1 continue protein supplement. primary service to manage HPI Consult Data Date of Consult: 08/06/22 HPI Narrative Reason for Consultation: ESRD dialysis mgmt HPI Narrative: EBONIE WOLF, is a 72 F with ESRD due to diabetes on HD TTS last dialysis on at [facility] presents to ER from [facility] for altered mental status, hypotension r/o sepsis. Blood sugar low at 31, more awake now but has slurred speech. Hgb low at 5.8g was scheduled for blood transfusion as outpt this morning so was not in for dialysis today. BUN 12 Cr 2.1 with K 4.2 on labs from ED. Albumin low at 1.1. She had a prolonged hospitalization for MRSA line sepsis with loss of vision in right eye. She has been receiving iv vancomycin after dialysis until 07/25/22. She has received fluid resuscitation and remains hypotensive with SBP 80's. [facility] Medical History (Updated 08/06/22 @ 16:[address] Leanna Chandra, ) (HFpEF) heart failure with preserved ejection fraction Anemia Anxiety Atherosclerosis of coronary artery of [place] heart without angina pectoris Bruising Cardiology follow-up encounter Cellulitis of left lower limb Chronic headaches Chronic kidney disease (CKD) Chronic ulcer of left foot with necrosis of muscle Current use of insulin Depression Diabetic foot infection Diabetic nephropathy Dietary restriction Difficulty chewing Difficulty swallowing DM (diabetes mellitus), type 2, uncontrolled DVT (deep venous thrombosis) Dyspnea Easy bruising Essential hypertension Gastric reflux History of CHF (congestive heart failure) History of echocardiogram History of edema History of heart attack History of irregular heartbeat History of leukemia History of non-ST elevation myocardial infarction (NSTEMI) (01/13/20) History of steroid therapy Hypertension Insulin dependent diabetes mellitus Irregular heartbeat Kidney calculi Left foot infection Leg cramps Low iron Malnutrition Myocardial infarction Non-smoker Open wound Paralysis Peripheral vascular disease Post-menopausal Pre-op testing Pressure ulcer Rash Renal disease Restless legs Shortness of breath on exertion Sleep apnea Status post amputation of toe of left foot Stroke Thyroid disease Thyroiditis Type 2 diabetes mellitus with diabetic foot infection Ulcer Ulcer of left foot due to type 2 diabetes mellitus Upper gastrointestinal bleeding Home Medications amlodipine 10 mg tablet 10 mg PO DAILY BP 08/07/21 [History Last Taken Unknown] aspirin 81 mg capsule 81 mg PO DAILY Heart 08/07/21 [History Last Taken Unknown] metoprolol tartrate 25 mg tablet 50 mg PO BID BP 08/07/21 [History Last Taken Unknown] atorvastatin 80 mg tablet 80 mg PO QHS Cholesterol 08/12/21 [History Last Taken Unknown] clopidogrel 75 mg tablet 75 mg PO DAILY Antiplatelet 08/12/21 [History Last Taken Unknown] polyethylene glycol 3350 17 gram oral powder packet 17 g PO DAILY Constipation 08/12/21 [History Last Taken Unknown] nystatin 100,000 unit/gram topical powder (Nyamyc) 1 applic topical TID redness 02/21/22 [History Last Taken Unknown] furosemide 40 mg tablet 40 mg PO BID 04/22/22 [History Last Taken Unknown] levothyroxine 125 mcg tablet 125 mcg PO DAILY 04/22/22 [History Last Taken Unknown] calcium carbonate 600 mg calcium (1,500 mg) tablet 600 mg PO BID 04/23/22 [History Last Taken Unknown] citalopram 20 mg tablet 20 mg PO DAILY 04/23/22 [History Last Taken Unknown] insulin lispro 100 unit/mL subcutaneous pen 0 unit subcut TID 04/23/22 [History Last Taken Unknown] melatonin 1 mg tablet 1 mg PO QHS 04/23/22 [History Last Taken Unknown] prednisone 10 mg tablet 5 mg PO QODAY 04/23/22 [History Last Taken Unknown] pantoprazole 40 mg tablet,delayed release 40 mg PO BID #60 tabs 04/26/22 [Rx Last Taken Unknown] doxycycline hyclate 50 mg capsule 50 cap PO 1200 05/18/22 [History Last Taken Unknown] acetaminophen 500 mg tablet 1,000 mg PO Q6H PRN pain/fever 06/04/22 [History Last Taken Unknown] bisacodyl 10 mg rectal suppository 10 mg OK DAILY PRN Constipation 06/04/22 [History Last Taken Unknown] magnesium hydroxide 400 mg/5 mL oral suspension (Milk of Magnesia) 30 ml PO DAILY PRN Constipation 06/04/22 [History Last Taken Unknown] menthol 0.44 %-zinc oxide 20.6 % topical ointment 1 applic topical DAILY 06/04/22 [History Last Taken Unknown] ondansetron 4 mg disintegrating tablet 4 mg PO Q6H PRN Nausea 06/04/22 [History Last Taken Unknown] oxycodone 5 mg tablet 5 mg PO Q6H PRN Pain 06/04/22 [History Last Taken Unknown] triamcinolone acetonide 0.1 % topical ointment 1 applic topical BID 06/04/22 [History Last Taken Unknown] carvedilol 12.5 mg tablet 12.5 mg PO BID 08/06/22 [History Last Taken Unknown] Allergy/AdvReac Type Severity Reaction Status Date / Time baclofen AdvReac Other Verified 06/04/22 07:25 Family History Mother CVA (cerebral vascular accident) Other Diabetes Heart disease Surgical History (Updated 08/06/22 @ 14:[address] Jerrell Lopez DO) H/O coronary artery bypass surgery History of heart artery stent S/P tubal ligation Status post arterial stent Status post coronary artery bypass graft Status post coronary artery stent placement Status post hysterectomy Status post transmetatarsal amputation of left foot Social History household members: children housing: [facility] Smoking Status: Never smoker ROS Review of Systems ROS Unobtainable: due to encephalopathy, due to mental condition and other Details: slurred speech, moaning. Physical Exam Const Constitutional Narrative: awake, unable to obtain history. Bedridden, full assist required. Moaning, attempts to speak with slurred speech Nutritional Appearance: obese Resp Auscultation: rhonchi Cardio Cardio Narrative: tachycardia GI non-tender and non-distended Auscultation: normoactive bowel sounds Palpation: soft Extremity General Extremity: edema bilateral upper extremity moderate Neuro Neuro Narrative: focal weakness, left hemiplegia, gen weakness, debilitated bed bound Lab / Micro Data Result Diagrams: 08/06/22 08:45 08/06/22 08:45 Labs: Laboratory Results - last 24 hr 08/06/22 05:08: Blood Type AB POSITIVE, Antibody Screen NEGATIVE, Crossmatch See Detail 08/06/22 08:15: POC Glucose 83 08/06/22 08:45: WBC 11.6 H, RBC 1.95 L, Hgb 5.8 L*, Hct 18.8 L, MCV 96.4, MCH 29.7, MCHC 30.9 L, RDW Std Deviation 61.1 H, RDW Coeff of Jenna 17.5 H, Plt Count 226, MPV 10.6, Immature Gran % (Auto) 0.900, Neut % (Auto) 88.4 H, Lymph % (Auto) 5.7 L, Sargent % (Auto) 4.7, Eos % (Auto) 0.2, Baso % (Auto) 0.1, Absolute Neuts (auto) 10.3 H, Absolute Lymphs (auto) 0.66 L, Nucleated RBC % 0, Differential Comment COMMENT, Diff Path Review March08/06/22 08:45: PT 17.9 H, INR 1.5, APTT 47.7 H 08/06/22 08:45: Sodium 141, Potassium 4.2, Chloride 102, Carbon Dioxide 32.0, Anion Gap 7, BUN 12, Creatinine 2.10 H, Estim Creat Clear Calc 21.79, Est GFR (MDRD) Af Amer 30 L, Est GFR (MDRD) Non-Af 25 L, BUN/Creatinine Ratio 5.7 L, Glucose 76, Calcium 6.2 L*, Total Bilirubin 0.80, AST 91 H, ALT 27, Alkaline Phosphatase 235 H, Total Protein 4.8 L, Albumin 1.1 L, Globulin 3.7, Albumin/Globulin Ratio 0.3 L 08/06/22 08:45: Lactic Acid 0.8 08/06/22 09:07: POC Glucose 84 08/06/22 09:48: POC Glucose 85 08/06/22 11:55: POC Glucose 103 08/06/22 13:38: POC Glucose 127 H Radiology Impression Brain CT 08/06/22 08:23 IMPRESSION: Chronic involutional changes of the brain. Mild degree of ethmoid sinusitis and left frontal sinusitis. Electronically Signed: Donny Mariee MD at 9:44 EDT , Chest X-Ray 08/06/22 09:30 IMPRESSION: Mild increased markings in the right infrahilar region. Early infiltrate should be ruled out. Electronically Signed: Donny Mariee MD at 9:46 EDT , Chest X-Ray 08/06/22 10:54 IMPRESSION: Improved aeration at the right lung base. Electronically Signed: Donny Mariee MD at 11:15 EDT ,
--- NOTE | 2022-08-06 14:26 | PCM.OP.PRO ---
Assessment & Plan Assessment/Plan (1) Septic shock: (2) Acute encephalopathy: (3) History of MRSA infection: (4) ESRD (end stage renal disease) on dialysis: (5) Iatrogenic hyperthyroidism: (6) (HFpEF) heart failure with preserved ejection fraction: (7) H/O coronary artery bypass surgery: (8) Hypoglycemia: (9) DM (diabetes mellitus), type 2, uncontrolled: PLAN: Plan Use central line to titrate MAP to greater than 65 Procedure Report Date of Procedure: 08/06/22 Central line placement Indication: Need for central access for pressors in a patient with septic shock, hypo glycemia, ESRD on dialysis Description: Previous attempts at left neck were made by ER, unsuccessful due to extensive scarring and vascular abnormalities after prior vascular access procedures. Informed consent was obtained from the patient's daughter, with additional risks of using a femoral access explained. Risk of vascular damage, arterial puncture, infection, and other unforeseen circumstances were explained to her. She accepted the risks of the procedure and signed consent on behalf of her mother who has altered mental status and is unable to sign. The right femoral area was prepped and draped in the usual fashion, and survey ultrasound showed a 4 to 5 mm femoral vein which was compressible. The area was distorted due to prior femoropopliteal bypass and arterial stent placements for peripheral vascular disease. After reprepping and local anesthesia with 2% lidocaine via 23-gauge needle, ultrasound guidance was used to place a triple-lumen injectable 5 [place] 16 cm catheter after the third needle pass. The wire threaded without difficulty, the dilator was used to improve access to the vein after he 2 mm skin blayne. The catheter was then advanced to the hub, good venous nonpulsatile dark blood return was noted from all 3 ports. The line was flushed, sterile injectable ports were attached, the line was sutured in place at the hub, and the site was reprepped with chlorhexidine, which was allowed to dry prior to applying the dressing which included a transparent Biopatch. The patient tolerated the procedure well. Norepinephrine will be attached shortly. No x-rays necessary postprocedure. Prateek Villarreal MD Pulmonary critical care medicine Procedures Hospitalists Procedures: [id number] Insert Non-tunnel CV Cath
--- NOTE | 2022-08-06 14:41 | EX.PCM.CONCC ---
Assessment & Plan Assessment/Plan (1) Septic shock: PLAN: Plan 1. Septic shock, with fluid unresponsive hypotension after 3 L of fluid, 2 units of packed cells. The patient has a subtle right infrahilar infiltrate which may be related to fluid resuscitation. She was not coughing. Other possible sources include vascular, I doubt her presacral abrasion is a source. Differential also includes ethmoid sinusitis and left frontal sinusitis seen on CT today, abdomen exam was benign, occult, and deep tissue. There may also be residual from her endophthalmitis, although CT of the brain and head today without contrast did not show any soft tissue infection. Her daughter denied that patient complained of residual right eye pain. -Vancomycin with doses to be monitored by pharmacy -Zosyn -Titrate norepinephrine to MAP greater than 65 via new right femoral central line. Do not remove this femoral line per protocol prior to at least 48 hours, due to the patient's very limited vascular access. The risk-benefit analysis currently lies on the side of maintaining the femoral line as long as she needs vasoactive drips, although the femoral site has known increased risk of infection. -Chlorhexidine washes daily in the ICU, careful skin and perineal care to maintain cleanliness and minimize line contamination. -ID consult due to recent, complex infection with MRSA -Further work-up as needed for possible sources 2. End-stage renal disease, on Wednesday dialysis, last dialysis Wednesday. She was seen by Dr. Chandra, who did not think she needed emergent dialysis today. We will resume regular dialysis at renal's discretion. 3. Hypoglycemia, with altered mental status. The amount of time spent with low glucose is unknown. Encouragingly, the patient seems to be recovering her mental status upon arrival in ICU after restoring glucose greater than 100. Hopefully she will not be left with residual hypoglycemic metabolic encephalopathy. -Q1H POC glucose, supplement as needed -D5 normal saline at 50 cc/h or less, unless patient runs low glucoses again -Note the patient is on sliding scale insulin only for her diabetes management at the senior care. Therefore, there is no long-acting hypoglycemic medication to be concerned of at this time. -Predischarge planning will need to include addressing her diabetes regimen in hopes of preventing a future episode of hypoglycemia -Continue frequent neurochecks -Consult OT 4. Coronary artery disease: Ejection fraction 60% without diastolic dysfunction, 1-2+ aortic valve insufficiency. No significant pulmonary hypertension, PAS is 35 mmHg. 5. Type 2 diabetes, uncontrolled, management per primary team. 6. Stage I pressure injury of sacral region 7. Severe protein calorie malnutrition 8. Severe anemia of chronic disease, transfused 2 units today -Give fluids cautiously, she can only be diuresed via dialysis. Avoid fluid overload. 9. History of CVA, bedbound, with extensive decreased range of motion -PT, OT 10. Limited vascular access: Venous ultrasound in May 2022 showed widely patent upper veins via extremity venous Dopplers 11. Chronic edema, this is likely due to a combination of severe hypoalbuminemia, with superimposed renal failure. Notably, CT scan of the abdomen and pelvis April 2022 showed ascites, bilateral pleural effusion, dependent lower lobe consolidation, subcutaneous edema. Supportive care is recommended. Critical care time spent with patient at bedside, review of documentation, lab results, radiology and other test results, discussion with colleagues and ancillary staff, clinical management of patient, and updating family if applicable, was 40 minutes. This time does not include any procedures, if performed. [place] [address]53. HPI Consult Data Date of Consult: 08/06/22 HPI Narrative Reason for Consultation: 72 F with ESRD due to diabetes, with AMS due to glucose of 31 for unk time. HPI Narrative: EBONIE WOLF, is a 72 F who has dialysis on Wednesday and Wednesday. Presented after being found unresponsive in her senior care, found to have a glucose of 31 and was hypotensive in the ER, unresponsive to fluid resuscitation and 2 units of PRBC for hemoglobin of less than 6. She did not have her usual dialysis today due to her transfer to the ER. She was due to have had transfusion at dialysis today. She is maintained on sliding scale insulin in her senior care. 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 In the ER, D10 bolus increased glucose to 120, on arrival in the ICU her glucose remained in the 120s. Her mental status was unresponsive, and since being in the ER, she is now improved her mental status to opening her eyes, turning towards the speaker, weakly smiling, but is still nonverbal. She has been able to speak prior to this. She has been bedbound since his stroke 4 years ago and unable to ambulate. She is anuric due to ESRD. She received Zosyn at 1525 hrs.She missed her vancomycin dose since she did not receive dialysis today, and will receive it here In the ICU, a central line was urgently placed In the right femoral because of persistent hypotension after fluid resuscitation and 2 units of packed cells. Previous attempts in the ER were unsuccessful due to a combination of Hypotension and multiple prior vascular Instrumentations with scarring, and hypotension. She is not a candidate for a PICC line due to the need to preserve arm vasculature for possible future fistulas. [facility] Medical History (HFpEF) heart failure with preserved ejection fraction Anemia Anxiety Atherosclerosis of coronary artery of [place] heart without angina pectoris Bruising Cardiology follow-up encounter Cellulitis of left lower limb Chronic headaches Chronic kidney disease (CKD) Chronic ulcer of left foot with necrosis of muscle Current use of insulin Depression Diabetic foot infection Diabetic nephropathy Dietary restriction Difficulty chewing Difficulty swallowing DM (diabetes mellitus), type 2, uncontrolled DVT (deep venous thrombosis) Dyspnea Easy bruising Essential hypertension Gastric reflux History of CHF (congestive heart failure) History of echocardiogram History of edema History of heart attack History of irregular heartbeat History of leukemia History of non-ST elevation myocardial infarction (NSTEMI) (01/13/20) History of steroid therapy Hypertension Insulin dependent diabetes mellitus Irregular heartbeat Kidney calculi Left foot infection Leg cramps Low iron Malnutrition Myocardial infarction Non-smoker Open wound Paralysis Peripheral vascular disease Post-menopausal Pre-op testing Pressure ulcer Rash Renal disease Restless legs Shortness of breath on exertion Sleep apnea Status post amputation of toe of left foot Stroke Thyroid disease Thyroiditis Type 2 diabetes mellitus with diabetic foot infection Ulcer Ulcer of left foot due to type 2 diabetes mellitus Upper gastrointestinal bleeding Home Medications amlodipine 10 mg tablet 10 mg PO DAILY BP 08/07/21 [History Last Taken Unknown] aspirin 81 mg capsule 81 mg PO DAILY Heart 08/07/21 [History Last Taken Unknown] metoprolol tartrate 25 mg tablet 50 mg PO BID BP 08/07/21 [History Last Taken Unknown] atorvastatin 80 mg tablet 80 mg PO QHS Cholesterol 08/12/21 [History Last Taken Unknown] clopidogrel 75 mg tablet 75 mg PO DAILY Antiplatelet 08/12/21 [History Last Taken Unknown] polyethylene glycol 3350 17 gram oral powder packet 17 g PO DAILY Constipation 08/12/21 [History Last Taken Unknown] nystatin 100,000 unit/gram topical powder ([facility]) 1 applic topical TID redness 02/21/22 [History Last Taken Unknown] furosemide 40 mg tablet 40 mg PO BID 04/22/22 [History Last Taken Unknown] levothyroxine 125 mcg tablet 125 mcg PO DAILY 04/22/22 [History Last Taken Unknown] calcium carbonate 600 mg calcium (1,500 mg) tablet 600 mg PO BID 04/23/22 [History Last Taken Unknown] citalopram 20 mg tablet 20 mg PO DAILY 04/23/22 [History Last Taken Unknown] insulin lispro 100 unit/mL subcutaneous pen 0 unit subcut TID 04/23/22 [History Last Taken Unknown] melatonin 1 mg tablet 1 mg PO QHS 04/23/22 [History Last Taken Unknown] prednisone 10 mg tablet 5 mg PO QODAY 04/23/22 [History Last Taken Unknown] pantoprazole 40 mg tablet,delayed release 40 mg PO BID #60 tabs 04/26/22 [Rx Last Taken Unknown] doxycycline hyclate 50 mg capsule 50 cap PO 1200 05/18/22 [History Last Taken Unknown] bisacodyl 10 mg rectal suppository 10 mg HI DAILY PRN Constipation 06/04/22 [History Last Taken Unknown] magnesium hydroxide 400 mg/5 mL oral suspension (Milk of Magnesia) 30 ml PO DAILY PRN Constipation 06/04/22 [History Last Taken Unknown] menthol 0.44 %-zinc oxide 20.6 % topical ointment 1 applic topical DAILY 06/04/22 [History Last Taken Unknown] ondansetron 4 mg disintegrating tablet 4 mg PO Q6H PRN Nausea 06/04/22 [History Last Taken Unknown] oxycodone 5 mg tablet 5 mg PO Q6H PRN Pain 06/04/22 [History Last Taken Unknown] triamcinolone acetonide 0.1 % topical ointment 1 applic topical BID 06/04/22 [History Last Taken Unknown] carvedilol 12.5 mg tablet 12.5 mg PO BID 08/06/22 [History Last Taken Unknown] Allergy/AdvReac Type Severity Reaction Status Date / Time baclofen AdvReac Other Verified 06/04/22 07:25 Family History Mother CVA (cerebral vascular accident) Other Diabetes Heart disease Surgical History H/O coronary artery bypass surgery History of heart artery stent S/P tubal ligation Status post arterial stent Status post coronary artery bypass graft Status post coronary artery stent placement Status post hysterectomy Status post transmetatarsal amputation of left foot unable to obtain (Note that has extensive scarring in both groins, greater on the left, and her daughter stated she had a prior femoral bypass for peripheral vascular disease.) Social History (Updated 08/06/22 @ 17:[address] Prateek Villarreal MD) household members: children and other details: Daughter Ingrid and granddaughter Heather were present today in ER08/06/22 housing: senior care Smoking Status: Never smoker ROS ROS Narrative Unable due to altered mental status. Patient does have diffuse discomfort and moans with any movement. acCording to her daughter this is typical. Review of Systems ROS Unobtainable: due to mental status Physical Exam Narrative Chronically ill-appearing woman, appearing her stated age, who is breathing comfortably, groaning, nonverbal, and hypotensive in the ER. Daughter and granddaughter at bedside. HEENT: Mucous membranes dry, extraocular is intact, briefly will focus and track, but quickly becomes fatigued. Chronic right swelling and scarring of the periorbital tissues, clear fluid accumulated at the right lateral canthus, no purulence. Blind in right eye. Left unremarkable. No snoring while lying supine on stretcher. Neck is supple, short, no thyromegaly. Lungs are diminished, patient did not cooperate with exam, grossly clear. No use of accessory muscles. Heart normal S1-S2 with no murmurs. Abdomen is soft, obese, nontender, no organomegaly Extremities have a stage I pressure injury of the sacrum, extensive scarring of both groins, bilateral neck from prior instrumentation, fresh dressing at the left IJ with no active bleeding clean and dry. Thin, fragile skin with extensive ecchymoses and chronic venous stasis changes of lower extremities. Neuro: Chronically bedbound, severely decreased mobility with stiffness and markedly reduced range of motion in all extremities. Moderate edema diffusely. Lab / Micro Data Lab results narrative: Chest x-ray showed improved aeration of the right lung base. There is possible early infiltrate or interstitial edema of the right infrahilar region. Note urine sample is available. Patient is an uric Result Diagrams: 08/06/22 08:45 08/06/22 08:45 Labs: Laboratory Results - last 24 hr 08/06/22 05:08: Blood Type AB POSITIVE, Antibody Screen NEGATIVE, Crossmatch See Detail 08/06/22 08:15: POC Glucose 83 08/06/22 08:45: WBC 11.6 H, RBC 1.95 L, Hgb 5.8 L*, Hct 18.8 L, MCV 96.4, MCH 29.7, MCHC 30.9 L, RDW Std Deviation 61.1 H, RDW Coeff of Jenna 17.5 H, Plt Count 226, MPV 10.6, Immature Gran % (Auto) 0.900, Neut % (Auto) 88.4 H, Lymph % (Auto) 5.7 L, [place] % (Auto) 4.7, Eos % (Auto) 0.2, Baso % (Auto) 0.1, Absolute Neuts (auto) 10.3 H, Absolute Lymphs (auto) 0.66 L, Nucleated RBC % 0, Differential Comment COMMENT, Diff Path Review March08/06/22 08:45: PT 17.9 H, INR 1.5, APTT 47.7 H 08/06/22 08:45: Sodium 141, Potassium 4.2, Chloride 102, Carbon Dioxide 32.0, Anion Gap 7, BUN 12, Creatinine 2.10 H, Estim Creat Clear Calc 21.79, Est GFR (MDRD) Af Amer 30 L, Est GFR (MDRD) Non-Af 25 L, BUN/Creatinine Ratio 5.7 L, Glucose 76, Calcium 6.2 L*, Total Bilirubin 0.80, AST 91 H, ALT 27, Alkaline Phosphatase 235 H, Total Protein 4.8 L, Albumin 1.1 L, Globulin 3.7, Albumin/Globulin Ratio 0.3 L 08/06/22 08:45: Lactic Acid 0.8 08/06/22 09:07: POC Glucose 84 08/06/22 09:48: POC Glucose 85 08/06/22 11:55: POC Glucose 103 08/06/22 13:38: POC Glucose 127 H Radiology Impression Brain CT 08/06/22 08:23 IMPRESSION: Chronic involutional changes of the brain. Mild degree of ethmoid sinusitis and left frontal sinusitis. Electronically Signed: Donny Mariee MD at 9:44 EDT , Chest X-Ray 08/06/22 09:30 IMPRESSION: Mild increased markings in the right infrahilar region. Early infiltrate should be ruled out. Electronically Signed: Donny Mariee MD at 9:46 EDT , Chest X-Ray 08/06/22 10:54 IMPRESSION: Improved aeration at the right lung base. Electronically Signed: Donny Mariee MD at 11:15 EDT ,
--- NOTE | 2022-08-06 15:13 | HP.PCM.HOS_ITS ---
HPI - General General Date of Admission: 08/06/22 Date of Service: 08/06/22 Chief Complaint: Hypoglycemia, confusion HPI Narrative EBONIE WOLF, is a 72 F who presents to the emergency room at [facility] after being transported from a local [facility] facility at which she is a resident due to hypoglycemia and altered mental status, patient has a lengthy medical history, recently she had a MRSA blood infection from a dialysis catheter, she was transferred from the hospital here in June to [facility] and had further treatment there and at the [facility] for an eye infection. Patient was scheduled to get a transfusion of 2 units of packed red blood cells for chronic anemia here at the hospital today. Work-up in the emergency room included labs which showed a slightly elevated white blood cell count, patient's hemoglobin was 5.8, patient's blood sugar was 76, creatinine was 2.1, chest x-ray was unremarkable, patient's pulse ox was 100% on room air. Patient was afebrile, she appeared confused and somnolent, patient's systolic blood pressure was in the 80s and an attempt was made to place a central line without success by the emergency room physician. Patient was given IV Zosyn and vancomycin, she will be admitted for septic shock presumed to be associated with dialysis catheter infection. Infectious diseases, nephrology, and critical care will be consulted [facility] Medical History (Updated 08/06/22 @ 14:[address] Prateek Villarreal MD) (HFpEF) heart failure with preserved ejection fraction Anemia Anxiety Atherosclerosis of coronary artery of [place] heart without angina pectoris Bruising Cardiology follow-up encounter Cellulitis of left lower limb Chronic headaches Chronic kidney disease (CKD) Chronic ulcer of left foot with necrosis of muscle Current use of insulin Depression Diabetic foot infection Diabetic nephropathy Dietary restriction Difficulty chewing Difficulty swallowing DM (diabetes mellitus), type 2, uncontrolled DVT (deep venous thrombosis) Dyspnea Easy bruising Essential hypertension Gastric reflux History of CHF (congestive heart failure) History of echocardiogram History of edema History of heart attack History of irregular heartbeat History of leukemia History of non-ST elevation myocardial infarction (NSTEMI) (01/13/20) History of steroid therapy Hypertension Insulin dependent diabetes mellitus Irregular heartbeat Kidney calculi Left foot infection Leg cramps Low iron Malnutrition Myocardial infarction Non-smoker Open wound Paralysis Peripheral vascular disease Post-menopausal Pre-op testing Pressure ulcer Rash Renal disease Restless legs Shortness of breath on exertion Sleep apnea Status post amputation of toe of left foot Stroke Thyroid disease Thyroiditis Type 2 diabetes mellitus with diabetic foot infection Ulcer Ulcer of left foot due to type 2 diabetes mellitus Upper gastrointestinal bleeding Home Medications amlodipine 10 mg tablet 10 mg PO DAILY BP 08/07/21 [History Last Taken Unknown] aspirin 81 mg capsule 81 mg PO DAILY Heart 08/07/21 [History Last Taken Unknown] metoprolol tartrate 25 mg tablet 50 mg PO BID BP 08/07/21 [History Last Taken Unknown] atorvastatin 80 mg tablet 80 mg PO QHS Cholesterol 08/12/21 [History Last Taken Unknown] clopidogrel 75 mg tablet 75 mg PO DAILY Antiplatelet 08/12/21 [History Last Take n Unknown] polyethylene glycol 3350 17 gram oral powder packet 17 g PO DAILY Constipation 08/12/21 [History Last Taken Unknown] nystatin 100,000 unit/gram topical powder ([facility]) 1 applic topical TID redness 02/21/22 [History Last Taken Unknown] furosemide 40 mg tablet 40 mg PO BID 04/22/22 [History Last Taken Unknown] levothyroxine 125 mcg tablet 125 mcg PO DAILY 04/22/22 [History Last Taken Unkn own] calcium carbonate 600 mg calcium (1,500 mg) tablet 600 mg PO BID 04/23/22 [History Last Taken Unknown] citalopram 20 mg tablet 20 mg PO DAILY 04/23/22 [History Last Taken Unknown] insulin lispro 100 unit/mL subcutaneous pen 0 unit subcut TID 04/23/22 [History Last Taken Unknown] melatonin 1 mg tablet 1 mg PO QHS 04/23/22 [History Last Taken Unknown] prednisone 10 mg tablet 5 mg PO QODAY 04/23/22 [History Last Taken Unknown] pantoprazole 40 mg tablet,delayed release 40 mg PO BID #60 tabs 04/26/22 [Rx Last Taken Unknown] doxycycline hyclate 50 mg capsule 50 cap PO 1200 05/18/22 [History Last Taken Unknown] acetaminophen 500 mg tablet 1,000 mg PO Q6H PRN pain/fever 06/04/22 [History Last Taken Unknown] bisacodyl 10 mg rectal suppository 10 mg [place] DAILY PRN Constipation 06/04/22 [History Last Taken Unknown] magnesium hydroxide 400 mg/5 mL oral suspension (Milk of Magnesia) 30 ml PO DAILY PRN Constipation 06/04/22 [History Last Taken Unknown] menthol 0.44 %-zinc oxide 20.6 % topical ointment 1 applic topical DAILY 06/04/22 [History Last Taken Unknown] ondansetron 4 mg disintegrating tablet 4 mg PO Q6H PRN Nausea 06/04/22 [History Last Taken Unknown] oxycodone 5 mg tablet 5 mg PO Q6H PRN Pain 06/04/22 [History Last Taken Unknown] triamcinolone acetonide 0.1 % topical ointment 1 applic topical BID 06/04/22 [History Last Taken Unknown] carvedilol 12.5 mg tablet 12.5 mg PO BID 08/06/22 [History Last Taken Unknown] Allergy/AdvReac Type Severity Reaction Status Date / Time baclofen AdvReac Other Verified 06/04/22 07:25 Family History Mother CVA (cerebral vascular accident) Other Diabetes Heart disease Surgical History (Updated 08/06/22 @ 14:[address] Jerrell Lopez DO) H/O coronary artery bypass surgery History of heart artery stent S/P tubal ligation Status post arterial stent Status post coronary artery bypass graft Status post coronary artery stent placement Status post hysterectomy Status post transmetatarsal amputation of left foot Social History household members: children housing: halfway Smoking Status: Never smoker ROS ROS Narrative Review of systems was unobtainable due to encephalopathy (metabolic encephalopathy) Vital Signs Vital Signs Vital Signs: 08/06/22 08:00 08/06/22 08:08 08/06/22 08:21 Temperature 96.8 F L Temperature Source Temporal Pulse Rate 72 72 Respiratory Rate 14 13 Blood Pressure 81/45 L 79/52 L Blood Pressure Mean 57 61 Blood Pressure Source Blood Pressure Position Blood Pressure Location Pulse Ox 93 95 98 Oxygen Delivery Method Room Air Room Air Room Air 08/06/22 08:49 08/06/22 09:17 08/06/22 09:49 Temperature Temperature Source Pulse Rate 73 72 71 Respiratory Rate 16 11 L 19 H Blood Pressure 88/46 L 81/46 L 85/44 L Blood Pressure Mean 60 57 57 Blood Pressure Source Blood Pressure Position Blood Pressure Location Pulse Ox 97 98 99 Oxygen Delivery Method Room Air Room Air Room Air 08/06/22 10:05 08/06/22 10:36 08/06/22 11:05 Temperature Temperature Source Pulse Rate 71 72 71 Respiratory Rate 16 13 15 Blood Pressure 85/44 L 80/51 L 80/51 L Blood Pressure Mean 57 60 60 Blood Pressure Source Blood Pressure Position Blood Pressure Location Pulse Ox 100 99 99 Oxygen Delivery Method Room Air Room Air Room Air 08/06/22 11:16 08/06/22 11:50 08/06/22 12:06 Temperature 97.6 F L 97.6 F L Temperature Source Axillary Axillary Pulse Rate 70 71 70 Respiratory Rate 18 17 16 Blood Pressure 94/48 L 84/50 L 85/52 L Blood Pressure Mean 63 61 63 Blood Pressure Source Monitor Blood Pressure Position Supine Blood Pressure Location Left Arm Pulse Ox 100 100 99 Oxygen Delivery Method Room Air Room Air Room Air 08/06/22 12:08 08/06/22 12:21 08/06/22 13:23 Temperature 97.6 F L 98.1 F 97.1 F L Temperature Source Axillary Axillary Temporal Pulse Rate 70 71 71 Respiratory Rate 17 16 13 Blood Pressure 85/52 L 81/43 L 87/48 L Blood Pressure Mean 63 55 61 Blood Pressure Source Monitor Monitor Blood Pressure Position Supine Semi-Fowlers Blood Pressure Location Left Arm Left Arm Pulse Ox 100 100 100 Oxygen Delivery Method Room Air Room Air Room Air 08/06/22 13:36 08/06/22 13:45 08/06/22 14:30 Temperature 96.5 F L Temperature Source Temporal Pulse Rate 69 70 72 Respiratory Rate 10 L 15 12 Blood Pressure 89/50 L 88/49 L 75/45 L Blood Pressure Mean 63 62 55 Blood Pressure Source Monitor Monitor Monitor Blood Pressure Position Semi-Fowlers Semi-Fowlers Semi-Fowlers Blood Pressure Location Left Arm Left Arm Left Arm Pulse Ox 99 100 100 Oxygen Delivery Method Room Air Room Air Room Air 08/06/22 14:30 08/06/22 14:45 08/06/22 15:00 Temperature 97.0 F L Temperature Source Temporal Pulse Rate 72 72 71 Respiratory Rate 16 11 L Blood Pressure 80/45 L 83/50 L Blood Pressure Mean 56 61 Blood Pressure Source Monitor Monitor Blood Pressure Position Semi-Fowlers Semi-Fowlers Blood Pressure Location Left Arm Left Arm Pulse Ox 100 100 Oxygen Delivery Method Room Air Room Air Weight Weight: 87.7 kg Body Mass Index (BMI) 32.2 Physical Exam Const alert Constitutional Narrative: Patient is able to say a few words but not carry on conversation, she responds to verbal stimuli, patient appears much older than her stated age Orientation / Consciousness: awake and confused HEENT normocephalic, head/scalp atraumatic and moist oral mucous membranes Eyes PERRL, EOMs intact bilaterally and conjunctivae normal Neck supple, no JVD, thyroid normal and no carotid bruits General: trachea midline Resp normal respiratory effort, no retractions, no use of accessory muscles and clear to auscultation bilaterally Auscultation: Negative for rales, rhonchi or wheezes Cardio regular rate, regular rhythm, S1 normal heart sound, S2 normal heart sound, no murmurs, no rub and no gallops Cardio Narrative: A tunneled dialysis catheter is in place in the right chest wall GI normal to inspection, nondistended, normoactive bowel sounds, soft to palpation, non-tender and non-distended Extremity no clubbing, cyanosis or edema Skin no rashes or lesions noted General Skin Exam: no breakdown Neuro CN's II-XII intact bilaterally Neuro Narrative: Patient is alert but somewhat somnolent and confused Sensorium / Orientation: awake and alert Psych Psych Narrative: Patient exhibits some mild confusion, she is not able to carry on a conversation Results Lab / Micro Data Result Diagrams: 08/06/22 08:45 08/06/22 08:45 Labs: Laboratory Results - last 24 hr 08/06/22 05:08: Blood Type AB POSITIVE, Antibody Screen NEGATIVE, Crossmatch See Detail 08/06/22 08:15: POC Glucose 83 08/06/22 08:45: WBC 11.6 H, RBC 1.95 L, Hgb 5.8 L*, Hct 18.8 L, MCV 96.4, MCH 29.7, MCHC 30.9 L, RDW Std Deviation 61.1 H, RDW Coeff of Jenna 17.5 H, Plt Count 226, MPV 10.6, Immature Gran % (Auto) 0.900, Neut % (Auto) 88.4 H, Lymph % (Auto) 5.7 L, [place] % (Auto) 4.7, Eos % (Auto) 0.2, Baso % (Auto) 0.1, Absolute Neuts (auto) 10.3 H, Absolute Lymphs (auto) 0.66 L, Nucleated RBC % 0, Differential Comment COMMENT, Diff Path Review March08/06/22 08:45: PT 17.9 H, INR 1.5, APTT 47.7 H 08/06/22 08:45: Sodium 141, Potassium 4.2, Chloride 102, Carbon Dioxide 32.0, Anion Gap 7, BUN 12, Creatinine 2.10 H, Estim Creat Clear Calc 21.79, Est GFR (MDRD) Af Amer 30 L, Est GFR (MDRD) Non-Af 25 L, BUN/Creatinine Ratio 5.7 L, Glucose 76, Calcium 6.2 L*, Total Bilirubin 0.80, AST 91 H, ALT 27, Alkaline Phosphatase 235 H, Total Protein 4.8 L, Albumin 1.1 L, Globulin 3.7, Albumin/Globulin Ratio 0.3 L 08/06/22 08:45: Lactic Acid 0.8 08/06/22 09:07: POC Glucose 84 08/06/22 09:48: POC Glucose 85 08/06/22 11:55: POC Glucose 103 08/06/22 13:38: POC Glucose 127 H Radiology Impression Brain CT 08/06/22 08:23 IMPRESSION: Chronic involutional changes of the brain. Mild degree of ethmoid sinusitis and left frontal sinusitis. Electronically Signed: Donny Mariee MD at 9:44 EDT , Chest X-Ray 08/06/22 09:30 IMPRESSION: Mild increased markings in the right infrahilar region. Early infiltrate should be ruled out. Electronically Signed: Donny Mariee MD at 9:46 EDT , Chest X-Ray 08/06/22 10:54 IMPRESSION: Improved aeration at the right lung base. Electronically Signed: Donny Mariee MD at 11:15 EDT , Assessment & Plan Assessment/Plan (1) Septic shock: PLAN: Plan 1. Septic shock-most likely secondary to catheter associated infection-patient will be admitted to ICU, she will be seen by critical care, central line will need to be placed, she will be seen by infectious diseases and nephrology, patient will be given IV vancomycin and Zosyn for now. Patient will need treatment with pressors. According to the emergency room physician, patient's daughter states that the patient is a DNR CC arrest no intubation. #2 hypoglycemia-probably secondary to septic shock, blood sugars will be monitored #3 cerebrovascular disease-complicates care, management, recovery, and prognosis #4 type 2 diabetes-blood sugars will be monitored #5 end-stage renal disease on dialysis-due to hypotension, patient will not undergo dialysis today, nephrology is participating in her care #6 coronary artery disease-complicates care, management, recovery, and prognosis #7 hyperlipidemia-patient is n.p.o. at this time due to metabolic encephalopathy #8 metabolic encephalopathy secondary to septic shock-supportive care will be given #9 left hemiparesis secondary to remote stroke-complicates care, management, recovery, and prognosis Charges/Coding Visit Charges Inpatient E&M: 02980 Init Hosp L3
[2022-08-06] MEDS: Heparin Injection (Vial) 5,000 UNIT/ML VIAL 5000 UNIT SC ×2 (15:22→22:53)
--- NOTE | 2022-08-06 15:43 | PCM.RX.CS ---
Consult Pharmacy has been consulted to manage selected antiobiotic: Vancomycin Type of Consult: New start Suspected Infection: Sepsis Prior Doses of Antibiotics Received/Current Regimen: Received 2000mg iv x 1 on 08.06.22. Labs: Sodium 141 mmol/L (136-145) 08/06/22 08:45 Potassium 4.2 mmol/L (3.5-5.1) 08/06/22 08:45 Chloride 102 mmol/L (98-107) 08/06/22 08:45 Carbon Dioxide 32.0 mmol/L (21.0-32.0) 08/06/22 08:45 Anion Gap 7 (5-15) 08/06/22 08:45 BUN 12 mg/dL (7-18) 08/06/22 08:45 Creatinine 2.10 mg/dL (0.55-1.02) H 08/06/22 08:45 Est GFR (MDRD) Af Amer 30 mL/min (>60) L 08/06/22 08:45 Est GFR (MDRD) Non-Af 25 mL/min (>60) L 08/06/22 08:45 BUN/Creatinine Ratio 5.7 RATIO (10-20) L 08/06/22 08:45 Glucose 76 mg/dL (74-106) 08/06/22 08:45 Weight used for dosin.7 kg Estimated Creatinine Clearance: 22 ml/min Goal Trough: 15-20 mcg/mL Pharmacy Plan for Drug Dosing: Dialysis patient with schedule of . Ordered 750mg iv x 1 post dialysis per protocol for 08.08.22. Random level ordered for before dialysis session on 08.11.22. Pharmacy Service will continue to monitor and adjust dosing as required. Follow-Up Labs: Trough Vancomycin - Random 08.11.22 @0600
[2022-08-06 18:56] LABS: Bedside Glucose 140 mg/dL (74-106)
[2022-08-06 20:21] LABS: Hematocrit 26.4 % (37-47); Hemoglobin 8.6 g/dL (12.0-15.0)
[2022-08-06] MEDS: Carboxymethylcellulose sodium gel dropperette 1 EACH RIGHT EYE (22:52)
[2022-08-06] MEDS: 0.9% Saline Lock 10 ML Syringe IV (22:53)
[2022-08-07] VITALS (29 sets, daily range): BP systolic 85–119; BP diastolic 44–67; PULSE 74–86; RESP 10–22; TEMP 36.4–37.4; O2SAT 97–100
[2022-08-07 00:56] LABS: Bedside Glucose 129 mg/dL (74-106)
[2022-08-07] MEDS: 0.9% Saline Lock 10 ML Syringe IV ×2 (02:37→22:08)
[2022-08-07] MEDS: fentaNYL 100 MCG/2 ML Ampul IV ×2 (02:37→11:30)
[2022-08-07 04:23] LABS: Absolute Lymphocyte Count 0.59 X10^3/uL (0.83-4.51); Absolute Neutrophil Count 14.6 X10^3/uL (2.0-7.7); Basophil# 0.03 X10^3/uL; Basophil% 0.2 % (0-1); Eosinophil# 0.01 X10^3/uL; Eosinophils% 0.1 % (0-5); Hematocrit 25.5 % (37-47); Hemoglobin 8.5 g/dL (12.0-15.0); Lymphocyte # 0.59 X10^3/ul (0.83-4.51); Lymphocyte % 3.6 % (19-41); Mean Corp Hgb Conc 33.3 g/dL (32-36); Mean Corpuscular Hgb 30.2 pg (27.0-32.0); Mean Corpuscular Volume 90.7 fL (81-99); Monocyte# 0.81 X10^3/uL; NRBC Flagged by Analyzer 0 % (0-5); Neutrophil # 14.58 X10^3/uL (2.7-7.7); Neutrophil % 90.1 % (47-70); POSITIVE DIFFERENTIAL YES; Platelet Count 213 K/mm3 (150-450); RBC Distribution Width CV 17.8 % (11.6-14.6); RBC Distribution Width SD 58.5 fl (35.1-43.9); Red Blood Count 2.81 M/mm3 (4.2-5.4); White Blood Count 16.2 K/mm3 (4.4-11.0)
[2022-08-07 04:36] LABS: Differential Indicated SCAN CRITERIA MET
[2022-08-07 04:43] LABS: Anion Gap 10 (5-15); BUN 14 mg/dL (7-18); BUN/Creat Ratio 6.2 RATIO (10-20); Calcium,Total 5.7 mg/dL (8.5-10.1); Chloride 106 mmol/L (98-107); Creatinine, Serum 2.26 mg/dL (0.55-1.02); EST Glomerular Filtration Rate 23 mL/min (>60); Est Glom Filt Rate - Afr Amer 27 mL/min (>60); Estimated Creatinine Clearance 20.25 ml/min; Glucose 118 mg/dL (74-106); Potassium 3.9 mmol/L (3.5-5.1); Sodium Level 143 mmol/L (136-145)
[2022-08-07 04:47] LABS: Burr Cells 1+; Differential Comment SCANNED
[2022-08-07] MEDS: Heparin Injection (Vial) 5,000 UNIT/ML VIAL 5000 UNIT SC ×3 (05:36→21:57)
[2022-08-07 09:05] LABS: Bedside Glucose 95 mg/dL (74-106)
[2022-08-07] MEDS: Carboxymethylcellulose sodium gel dropperette 1 EACH RIGHT EYE ×2 (10:16→21:57)
--- NOTE | 2022-08-07 12:33 | PCM.CONS.GEN ---
Assessment & Plan Assessment/Plan (1) Septic shock: PLAN: Unclear source, cxs pending. About 10 days ago, completed iv vanc with HD for MRSA bacteremia with R eye involvement. On empiric vanc/zosyn here. CT head did not show any abscess. Will order TTE. Will follow, thank you (2) Acute encephalopathy: (3) ESRD (end stage renal disease) on dialysis: HPI Consult Data Date of Consult: 08/07/22 HPI Narrative Reason for Consultation: septic shock HPI Narrative: EBONIE WOLF, is a 72 F with ESRD due to DM, recent prolonged admission -07/2022 for MRSA bacteremia complicated by R infection. Admitted here, sent to [facility], then to PS[facility]IATRIC main. Discharged on iv vanc with dialysis, completed 07/25. Has been at [facility], doing well until unresponsive and hypotensive yesterday. No fever. Admitted on vanc/zosyn, pressors, sent to icu. Family at bedside this AM provided history. Pt denies cough, SOB, abd pain, eye pain. Full ROS performed and neg except as noted above. [facility] Medical History (HFpEF) heart failure with preserved ejection fraction Anemia Anxiety Atherosclerosis of coronary artery of [place] heart without angina pectoris Bruising Cardiology follow-up encounter Cellulitis of left lower limb Chronic headaches Chronic kidney disease (CKD) Chronic ulcer of left foot with necrosis of muscle Current use of insulin Depression Diabetic foot infection Diabetic nephropathy Dietary restriction Difficulty chewing Difficulty swallowing DM (diabetes mellitus), type 2, uncontrolled DVT (deep venous thrombosis) Dyspnea Easy bruising Essential hypertension Gastric reflux History of CHF (congestive heart failure) History of echocardiogram History of edema History of heart attack History of irregular heartbeat History of leukemia History of non-ST elevation myocardial infarction (NSTEMI) (01/13/20) History of steroid therapy Hypertension Insulin dependent diabetes mellitus Irregular heartbeat Kidney calculi Left foot infection Leg cramps Low iron Malnutrition Myocardial infarction Non-smoker Open wound Paralysis Peripheral vascular disease Post-menopausal Pre-op testing Pressure ulcer Rash Renal disease Restless legs Shortness of breath on exertion Sleep apnea Status post amputation of toe of left foot Stroke Thyroid disease Thyroiditis Type 2 diabetes mellitus with diabetic foot infection Ulcer Ulcer of left foot due to type 2 diabetes mellitus Upper gastrointestinal bleeding Home Medications amlodipine 10 mg tablet 10 mg PO DAILY BP 08/07/21 [History Last Taken Unknown] aspirin 81 mg capsule 81 mg PO DAILY Heart 08/07/21 [History Last Taken Unknown] atorvastatin 80 mg tablet 80 mg PO QHS Cholesterol 08/12/21 [History Last Taken Unknown] polyethylene glycol 3350 17 gram oral powder packet 17 g PO DAILY PRN Constipation 08/12/21 [History Last Taken Unknown] nystatin 100,000 unit/gram topical powder (Nyamyc) 1 applic topical DAILY redness 02/21/22 [History Last Taken Unknown] levothyroxine 125 mcg tablet 125 mcg PO QHS thyroid 04/22/22 [History Last Taken Unknown] pantoprazole 40 mg tablet,delayed release 40 mg PO BID #60 tabs 04/26/22 [Rx Last Taken Unknown] acetaminophen 325 mg tablet 650 mg PO Q6H PRN Pain 08/06/22 [History Last Taken Unknown] calcium carbonate 200 mg calcium (500 mg) chewable tablet (Tums) 200 mg PO QHS supplement 08/06/22 [History Last Taken Unknown] carvedilol 12.5 mg tablet 12.5 mg PO BID blood pressure 08/06/22 [History Last Taken Unknown] cholecalciferol (vitamin D3) 25 mcg (1,000 unit) tablet 25 mcg PO DAILY supplement 08/06/22 [History Last Taken Unknown] escitalopram oxalate 5 mg tablet 5 mg PO DAILY mood 08/06/22 [History Last Taken Unknown] megestrol 400 mg/10 mL (40 mg/mL) oral suspension 200 mg PO BID appetite 08/06/22 [History Last Taken Unknown] polyvinyl alcohol 1.4 % eye drops (Artificial Tears (polyvinyl alcohol)) 1 drp RIGHT EYE DAILY PRN irritation 08/06/22 [History Last Taken Unknown] sennosides 8.6 mg tablet (senna) 8.6 mg PO BID PRN Constipation 08/06/22 [History Last Taken Unknown] tramadol 50 mg tablet 50 mg PO Q6H PRN Pain 08/06/22 [History Last Taken Unknown] vitamin B complex and vitamin C no.20-folic acid 1 mg capsule 1 cap PO DAILY supplement 08/06/22 [History Last Taken Unknown] white petrolatum-mineral oil 83 %-15 % eye ointment (Lubrifresh PM) 1 applic RIGHT EYE BID ocular hypertension 08/06/22 [History Last Taken Unknown] Allergy/AdvReac Type Severity Reaction Status Date / Time baclofen AdvReac Other Verified 06/04/22 07:25 Family History Mother CVA (cerebral vascular accident) Other Diabetes Heart disease Surgical History H/O coronary artery bypass surgery History of heart artery stent S/P tubal ligation Status post arterial stent Status post coronary artery bypass graft Status post coronary artery stent placement Status post hysterectomy Status post transmetatarsal amputation of left foot Social History (Updated 08/06/22 @ 17:[address] Prateek Villarreal MD) household members: children and other details: Daughter Ingrid and granddaughter Heather were present today in ER08/06/22 housing: [facility] Smoking Status: Never smoker Physical Exam Const no apparent distress General Appearance: cooperative and lethargic HEENT normocephalic and head/scalp atraumatic Eyes EOMs intact bilaterally Neck supple and No nodes Resp normal air movement and clear to auscultation bilaterally Cardio regular rate and regular rhythm GI soft to palpation, non-tender and non-distended Extremity General Extremity: edema Skin no rashes or lesions noted Lab / Micro Data Result Diagrams: 08/07/22 04:15 08/07/22 04:15 Labs: Laboratory Results - last 24 hr 08/06/22 05:08: Blood Type AB POSITIVE, Antibody Screen NEGATIVE, Crossmatch See Detail 08/06/22 11:55: POC Glucose 103 08/06/22 13:38: POC Glucose 127 H 08/06/22 18:32: POC Glucose 140 H 08/06/22 20:10: Hgb 8.6 L, Hct 26.4 L 08/07/22 00:32: POC Glucose 129 H 08/07/22 04:15: WBC 16.2 H, RBC 2.81 L, Hgb 8.5 L, Hct 25.5 L, MCV 90.7 D, MCH 30.2, MCHC 33.3 D, RDW Std Deviation 58.5 H, RDW Coeff of Jenna 17.8 H, Plt Count 213, MPV 10.0, Immature Gran % (Auto) 1.000 H, Neut % (Auto) 90.1 H, Lymph % (Auto) 3.6 L, [place] % (Auto) 5.0, Eos % (Auto) 0.1, Baso % (Auto) 0.2, Absolute Neuts (auto) 14.6 H, Absolute Lymphs (auto) 0.59 L, Nucleated RBC % 0, Differential Comment SCANNED, [place] Cells 1+ 08/07/22 04:15: Sodium 143, Potassium 3.9, Chloride 106, Carbon Dioxide 27.0, Anion Gap 10, BUN 14, Creatinine 2.26 H, Estim Creat Clear Calc 20.25, Est GFR (MDRD) Af Amer 27 L, Est GFR (MDRD) Non-Af 23 L, BUN/Creatinine Ratio 6.2 L, Glucose 118 H, Calcium 5.7 L* 08/07/22 08:47: POC Glucose 95
--- NOTE | 2022-08-07 12:40 | ECHOL_ITS ---
Reason For Study: Septic Shock Procedure This was a limited 2D transthoracic echocardiogram. The study was technically limited. Limited views were obtained. Exam performed portable in ICU/CCU. Left Ventricle Normal LV size. Mild concentric left ventricular hypertrophy. The left ventricular ejection fraction is 50 %. Right Ventricle Mildly dilated right ventricle. Mild global right ventricular systolic dysfunction. Atria The left and right atria are normal. Mitral Valve Mild focal mitral valve thickening. Trivial mitral valve insufficiency. Tricuspid Valve Mild tricuspid valve insufficiency. Aortic Valve Aortic sclerosis, no stenosis. Pulmonic Valve The pulmonic valve is not well visualized. Great Vessels Atherosclerotic plaque noted aortic root. Pericardium/Pleural No pericardial effusion. MMode/2D Measurements & Calculations LVIDd: 3.8 cm IVSd: 1.3 cm LA dimension: 3.5 cm LVIDs: 2.3 cm LVPWd: 1.3 cm FS: 40.1 % LAV(MOD-sp4): 40.4 ml LA A4 area: 16.5 cm2 RA A4 area: 14.5 cm2 Doppler Measurements & Calculations PA V2 max: 111.9 cm/sec TR max ismael: 246.2 cm/sec PA V2 mean: 78.5 cm/sec TR max P.3 mmHg ECHO/Echo, Limited Study Interpretation Summary Mild concentric left ventricular hypertrophy. The left ventricular ejection fraction is 50 %. Mildly dilated right ventricle. Mild global right ventricular systolic dysfunction. Atherosclerotic plaque noted aortic root. No vegetations noted on this surface study. Consider FARZANA for further evaluation if clinical concern for endocarditis. Ordering Physician: Lai Muhammad Referring Physician: Jonh Solis Performed By: Jim Juarez RCS
[2022-08-07 13:06] LABS: Pathologist Review Reviewed
[2022-08-07 13:20] LABS: Bedside Glucose 89 mg/dL (74-106)
--- NOTE | 2022-08-07 14:17 | PCM.PN.INT ---
Assessment & Plan Assessment/Plan (1) Septic shock: PLAN: Plan 1. Septic shock, remains on pressors, source is uncertain although sinuses are a possibility, differential also includes pneumonia, vascular -Vancomycin with doses to be monitored by pharmacy -Zosyn -Titrate norepinephrine to MAP greater than 65 via new right femoral central line. Do not remove this femoral line per protocol prior to at least 48 hours, due to the patient's very limited vascular access. The risk-benefit analysis currently lies on the side of maintaining the femoral line as long as she needs vasoactive drips, although the femoral site has known increased risk of infection. -Chlorhexidine washes daily in the ICU, careful skin and perineal care to maintain cleanliness and minimize line contamination. -ID consult due to recent, complex infection with MRSA -Further work-up as needed for possible sources -Add empiric hydrocortisone, although patient and daughter denies adrenal insufficiency in the past or chronic steroid therapy -Check TSH 2. End-stage renal disease, on Wednesday dialysis, last dialysis Wednesday. Electrolytes are acceptable. Fluid is relatively balanced after sepsis resuscitation yesterday. We will resume regular dialysis at renal's discretion. 3. Hypoglycemia, with altered mental status. The amount of time spent with low glucose is unknown. Encouragingly, the patient seems to be recovering her mental status upon arrival in ICU -Q2H POC glucose, supplement as needed -D5 normal saline at 50 cc/h or less -Predischarge planning will need to include addressing her diabetes regimen in hopes of preventing a future episode of hypoglycemia -Routine neurochecks -Consult OT, PT -Severely decreased p.o. intake with 40% weight loss last summer due to patient's inability to eat. Denies dysphagia, discussed with daughter today, who would like to have a Dobbhoff tube placed. However she does not want another PEG tube placed. 4. Coronary artery disease: Ejection fraction 60% without diastolic dysfunction, 1-2+ aortic valve insufficiency. No significant pulmonary hypertension, PAS is 35 mmHg. 5. Type 2 diabetes, uncontrolled, management per primary team. 6. Stage I pressure injury of sacral region, routine skin care per primary 7. Severe protein calorie malnutrition 8. Severe anemia of chronic disease, transfused 2 units August 06 -Give fluids cautiously, she can only be diuresed via dialysis. Avoid fluid overload. 9. History of CVA, bedbound, with extensive decreased range of motion -PT, OT 10. Limited vascular access: Venous ultrasound in May 2022 showed widely patent upper veins via extremity venous Dopplers 11. Chronic edema, this is likely due to a combination of severe hypoalbuminemia, with superimposed renal failure. Notably, CT scan of the abdomen and pelvis April 2022 showed ascites, bilateral pleural effusion, dependent lower lobe consolidation, subcutaneous edema. Supportive care is recommended. Critical care time spent with patient at bedside, review of documentation, lab results, radiology and other test results, discussion with colleagues and ancillary staff, clinical management of patient, and updating family if applicable, was 40 minutes. This time does not include any procedures, if performed. [place] [address]. Subjective Subjective Opens eyes, turns towards visitors, smiles appropriately, tries to mouth 5 or 6 unintelligible words. Patient's daughter Ingrid was in the room and stated that the patient is able to talk fluently and understandably. This is a significant change for her. However, she has improved a lot compared to yesterday when she was completely nonverbal. She has nonspecific diffuse pain and was not able to tell us where. Patient unable to answer subjective questions Ingrid confirmed that patient has been bedbound and not in a chair for many months. She remains on Levophed at 15 mcg/min, and is saturating well on room air. Objective Data Objective Data Vital Signs: Vital Signs Temp Pulse Resp BP Pulse Ox O2 Del Method 36.4 C L 84 16 85/57 L 98 Room Air 08/07/22 12:00 08/07/22 13:00 08/07/22 13:00 08/07/22 13:00 08/07/22 13:00 08/07/22 13:00 Oxygen Delivery Method Room Air Weight: 89.2 kg Body Mass Index (BMI) 32.2 Intake & Output: Intake and Output for Last 24 Hours 08/05/22 08/06/22 08/07/22 23:59 23:59 23:59 Intake Total 5761.85 / 5787.00 583.03 / 583.03 Balance 5761.85 / 5787.00 583.03 / 583.03 Lab / Micro Data Attestation: I reviewed the patient's lab results. Result Diagrams: 08/07/22 04:15 08/07/22 04:15 Labs: Laboratory Results - last 24 hr 08/06/22 05:08: Blood Type AB POSITIVE, Antibody Screen NEGATIVE, Crossmatch See Detail 08/06/22 08:45: Diff Path Review Reviewed 08/06/22 18:32: POC Glucose 140 H 08/06/22 20:10: Hgb 8.6 L, Hct 26.4 L 08/07/22 00:32: POC Glucose 129 H 08/07/22 04:15: WBC 16.2 H, RBC 2.81 L, Hgb 8.5 L, Hct 25.5 L, MCV 90.7 D, MCH 30.2, MCHC 33.3 D, RDW Std Deviation 58.5 H, RDW Coeff of Jenna 17.8 H, Plt Count 213, MPV 10.0, Immature Gran % (Auto) 1.000 H, Neut % (Auto) 90.1 H, Lymph % (Auto) 3.6 L, [place] % (Auto) 5.0, Eos % (Auto) 0.1, Baso % (Auto) 0.2, Absolute Neuts (auto) 14.6 H, Absolute Lymphs (auto) 0.59 L, Nucleated RBC % 0, Differential Comment SCANNED, Nell Cells 1+ 08/07/22 04:15: Sodium 143, Potassium 3.9, Chloride 106, Carbon Dioxide 27.0, Anion Gap 10, BUN 14, Creatinine 2.26 H, Estim Creat Clear Calc 20.25, Est GFR (MDRD) Af Amer 27 L, Est GFR (MDRD) Non-Af 23 L, BUN/Creatinine Ratio 6.2 L, Glucose 118 H, Calcium 5.7 L* 08/07/22 08:47: POC Glucose 95 08/07/22 13:00: POC Glucose 89 Physical Exam Narrative Chronically ill-appearing woman, appearing her stated age, who is breathing comfortably, groaning, speaking unintelligible garbled words, normotensive on Levophed. Daughter at bedside during interdisciplinary rounds. HEENT: Mucous membranes dry, extraocular is intact, able to focus and track. Chronic right swelling and scarring of the periorbital tissues, no purulence. Blind in right eye. Left unremarkable. Neck is supple, short, no thyromegaly. Lungs are diminished, grossly clear. Dialysis port, tunneled 2 lumen without pigtail, in right subclavian area, clean and dry without purulence or erythema at insertion site. No use of accessory muscles. Heart normal S1-S2 with no murmurs. Abdomen is soft, obese, nontender, no organomegaly Extremities have a stage I pressure injury of the sacrum, extensive scarring of both groins, bilateral neck from prior instrumentation, fresh dressing at the left IJ with no active bleeding clean and dry. Thin, fragile skin with extensive ecchymoses and chronic venous stasis changes and edema pitting 3+ of lower extremities. Neuro: Chronically bedbound, severely decreased mobility with stiffness and markedly reduced range of motion in all extremities.
--- NOTE | 2022-08-07 14:40 | CASEMGMT ---
Social Work SW met with pt daughter Jailyn and introduced self and role of SW. Pt currently resides at [facility]. Jailyn states that she has decided pt will not return to [facility] and that Jailyn will take pt home. SW inquired about Jailyn's ability to care for pt. Jailyn states she does work 40 hours a week but family will be able to provide 24 hour care to pt. Pt has a hospital bed, teressa lift, BSC, and wheelchair available. Pt does go to Dialysis at [facility]S and daughter states that chair time varies. Dgt states she does not have transportation figured out for dialysis and pt appointments. Pt has previously had home health services PT/OT/SN through [place] and she would like to restart this. Dgt inquiring about private duty home health aids. SARA explained that [facility] can be contacted but services will not start immediately. Phone call to [facility] and Heather Chandra is pt Final Installer Inspector. SW left requesting return call to discuss services and inform of plan to return home and restart aid services. RAIMUNDO Brennan updated regarding daughters discharge plan. CAPRI Spears
--- NOTE | 2022-08-07 15:35 | RAD_ITS ---
EXAM: XR ABDOMEN, 1 VIEW CLINICAL INDICATION: Dobhoff placement TECHNIQUE: Frontal supine view of the abdomen/pelvis. This report was created using [employer] report generation technology. COMPARISON: None. FINDINGS: LOWER THORAX: Right vascular line. Tip in the right atrium. GASTROINTESTINAL TRACT: Unremarkable. Non-obstructive. No bowel or stomach distention. ORGANS: Unremarkable as visualized. No organomegaly. No abnormal calcifications. BONES/JOINTS: Multiple median sternotomy wires are noted consistent for cardiac surgery. SOFT TISSUES: No acute pathology. TUBES, LINES AND DEVICES: There is a feeding tube/ nasogastric tube noted. The tip is in the region of the stomach. RAD/Abdomen Single View (Portable) IMPRESSION: There is a feeding tube/ nasogastric tube noted. The tip is in the region of the stomach. Electronically Signed: Reid Mendes MD at 16:22 EDT ,
[2022-08-07] MEDS: Dext 5%-0.45% NS 1,000 ML 30 ML IV (15:36)
[2022-08-07] MEDS: Calcium Chloride 1 GM/10 ML Syringe IVP (15:51)
[2022-08-07] MEDS: Hydrocortisone Sod Succinate 100 MG/2 ML Vial IV ×2 (15:51→21:57)
--- NOTE | 2022-08-07 17:52 | PCM.PN.HOSP ---
Subjective Subjective Patient was seen and examined today in ICU, earlier today her blood pressure appeared stable, she remains on Levophed however, this afternoon her systolic blood pressure was in the 80s. I talked briefly with pulmonary medicine as well as infectious diseases about her care today. Patient's CBC today showed a white blood cell count of 16.2, hemoglobin was 8.5. Patient's creatinine was 2.26, calcium was low at 5.7. Glucose was 118. Objective Data Objective Data Vital Signs: Vital Signs Temp Pulse Resp BP Pulse Ox O2 Del Method 98.1 F 74 16 89/44 L 97 Room Air 08/07/22 16:00 08/07/22 16:00 08/07/22 16:00 08/07/22 16:00 08/07/22 16:00 08/07/22 16:00 Oxygen Delivery Method Room Air Weight: 89.2 kg Body Mass Index (BMI) 32.2 Intake & Output: Intake and Output for Last 24 Hours 08/05/22 08/06/22 08/07/22 23:59 23:59 23:59 Intake Total 5761.85 / 5787.00 667.33 / 667.33 Balance 5761.85 / 5787.00 667.33 / 667.33 Lab / Micro Data Result Diagrams: 08/07/22 04:15 08/07/22 04:15 Labs: Laboratory Results - last 24 hr 08/06/22 08:45: Diff Path Review Reviewed 08/06/22 18:32: POC Glucose 140 H 08/06/22 20:10: Hgb 8.6 L, Hct 26.4 L 08/07/22 00:32: POC Glucose 129 H 08/07/22 04:15: WBC 16.2 H, RBC 2.81 L, Hgb 8.5 L, Hct 25.5 L, MCV 90.7 D, MCH 30.2, MCHC 33.3 D, RDW Std Deviation 58.5 H, RDW Coeff of Jenna 17.8 H, Plt Count 213, MPV 10.0, Immature Gran % (Auto) 1.000 H, Neut % (Auto) 90.1 H, Lymph % (Auto) 3.6 L, [place] % (Auto) 5.0, Eos % (Auto) 0.1, Baso % (Auto) 0.2, Absolute Neuts (auto) 14.6 H, Absolute Lymphs (auto) 0.59 L, Nucleated RBC % 0, Differential Comment SCANNED, Nell Cells 1+ 08/07/22 04:15: Sodium 143, Potassium 3.9, Chloride 106, Carbon Dioxide 27.0, Anion Gap 10, BUN 14, Creatinine 2.26 H, Estim Creat Clear Calc 20.25, Est GFR (MDRD) Af Amer 27 L, Est GFR (MDRD) Non-Af 23 L, BUN/Creatinine Ratio 6.2 L, Glucose 118 H, Calcium 5.7 L* 08/07/22 08:47: POC Glucose 95 08/07/22 13:00: POC Glucose 89 Radiography Diagnostic Testing: Radiology Impression KUB X-Ray 08/07/22 15:35 IMPRESSION: There is a feeding tube/ nasogastric tube noted. The tip is in the region of the stomach. Electronically Signed: Reid Mendes MD at 16:22 EDT Reading Location ID and State: [facility] / [place] , Service support , Physical Exam Narrative Constitutional Narrative: Patient is able to say a few words but not carry on conversation, she responds to verbal stimuli, patient appears much older than her stated age Orientation / Consciousness: awake and confused HEENT normocephalic, head/scalp atraumatic and moist oral mucous membranes Eyes PERRL, EOMs intact bilaterally and conjunctivae normal Neck supple, no JVD, thyroid normal and no carotid bruits General: trachea midline Resp normal respiratory effort, no retractions, no use of accessory muscles and clear to auscultation bilaterally Auscultation: Negative for rales, rhonchi or wheezes Cardio regular rate, regular rhythm, S1 normal heart sound, S2 normal heart sound, no murmurs, no rub and no gallops Cardio Narrative: A tunneled dialysis catheter is in place in the right chest wall GI normal to inspection, nondistended, normoactive bowel sounds, soft to palpation, non-tender and non-distended Extremity no clubbing, cyanosis or edema Skin no rashes or lesions noted General Skin Exam: no breakdown Neuro CN's II-XII intact bilaterally Neuro Narrative: Patient is alert, she is unable to carry on a conversation however Sensorium / Orientation: awake and alert Psych Psych Narrative: Patient is alert, Assessment & Plan Assessment/Plan (1) Hypoglycemia: (2) Septic shock: PLAN: Plan 1. Septic shock-most likely secondary to catheter associated infection-continue IV antibiotics and fluids as well as pressors for now under direction of infectious diseases and critical care, cultures are pending According to the emergency room physician, patient's daughter states that the patient is a DNR CC arrest no intubation. #2 hypoglycemia-probably secondary to septic shock, blood sugars will be monitored, currently patient is not hypoglycemic #3 cerebrovascular disease-complicates care, management, recovery, and prognosis #4 type 2 diabetes-blood sugars will be monitored #5 end-stage renal disease on dialysis-due to hypotension, patient will not undergo dialysis today, nephrology is participating in her care #6 coronary artery disease-complicates care, management, recovery, and prognosis #7 hyperlipidemia-patient is n.p.o. at this time due to metabolic encephalopathy #8 metabolic encephalopathy secondary to septic shock-supportive care will be given #9 left hemiparesis secondary to remote stroke-complicates care, management, recovery, and prognosis Charges/Coding Visit Charges Inpatient E&M: 63539 Subs Hosp L2
[2022-08-07 17:58] LABS: Thyroid Stim Hormone (TSH) 0.31 uIU/mL (0.358-3.74)
[2022-08-07] MEDS: NEPRO TUBE FEED 1,000 ML 15 ML GT (18:51)
[2022-08-07] MEDS: Ketorolac 10 MG Tablet NG (18:53)
[2022-08-07 20:31] LABS: Bedside Glucose 99 mg/dL (74-106)
[2022-08-07] MEDS: Chlorhexidine 15 ML PO (21:56)
[2022-08-07] MEDS: Phytonadione (Vit K1) 5 MG TABLET PO (21:58)
[2022-08-07 23:46] LABS: Bedside Glucose 115 mg/dL (74-106)
[2022-08-08] VITALS (39 sets, daily range): BP systolic 95–132; BP diastolic 44–68; PULSE 78–91; RESP 13–24; TEMP 36.5–37.2; O2SAT 94–99
[2022-08-08] MEDS: Ketorolac 10 MG Tablet NG ×2 (02:55→13:04)
[2022-08-08] MEDS: Hydrocortisone Sod Succinate 100 MG/2 ML Vial IV ×3 (05:01→21:35)
[2022-08-08] MEDS: Heparin Injection (Vial) 5,000 UNIT/ML VIAL 5000 UNIT SC ×3 (05:01→21:35)
[2022-08-08 05:30] LABS: Bedside Glucose 147 mg/dL (74-106)
[2022-08-08] MEDS: CHLORHEXIDINE GLUC 2% CLOTH 1 EACH TOWELETTE TOPICAL (08:36)
[2022-08-08] MEDS: Chlorhexidine 15 ML PO ×2 (08:36→21:39)
[2022-08-08] MEDS: Phytonadione (Vit K1) 5 MG TABLET PO (08:37)
[2022-08-08] MEDS: Carboxymethylcellulose sodium gel dropperette 1 EACH RIGHT EYE ×2 (08:38→21:34)
[2022-08-08 09:08] LABS: Absolute Lymphocyte Count 0.73 X10^3/uL (0.83-4.51); Absolute Neutrophil Count 16.6 X10^3/uL (2.0-7.7); Basophil# 0.02 X10^3/uL; Basophil% 0.1 % (0-1); Hematocrit 27.3 % (37-47); Lymphocyte # 0.73 X10^3/ul (0.83-4.51); Mean Corpuscular Hgb 30.2 pg (27.0-32.0); Mean Corpuscular Volume 91.6 fL (81-99); Mean Platelet Vol. 10.7 fl (6.2-12.0); Monocyte# 0.61 X10^3/uL; Monocyte% 3.4 % (0-10); NRBC Flagged by Analyzer 0 % (0-5); Neutrophil # 16.55 X10^3/uL (2.7-7.7); Neutrophil % 91.5 % (47-70); Platelet Count 219 K/mm3 (150-450); RBC Distribution Width CV 18.3 % (11.6-14.6); RBC Distribution Width SD 60.6 fl (35.1-43.9); Red Blood Count 2.98 M/mm3 (4.2-5.4); White Blood Count 18.1 K/mm3 (4.4-11.0)
[2022-08-08] MEDS: 0.9% Saline Lock 10 ML Syringe IV ×2 (09:10→15:53)
[2022-08-08 09:28] LABS: ALB/GLOB Ratio 0.3 RATIO (0.9-2.4); AST(SGOT) 129 U/L (15-37); Alanine Aminotransfer ALT/SGPT 34 U/L (13-56); Alkaline Phosphatase 397 U/L (45-117); Anion Gap 14 (5-15); BUN 18 mg/dL (7-18); BUN/Creat Ratio 6.9 RATIO (10-20); Calcium,Total 5.9 mg/dL (8.5-10.1); Chloride 107 mmol/L (98-107); Creatinine, Serum 2.62 mg/dL (0.55-1.02); EST Glomerular Filtration Rate 19 mL/min (>60); Est Glom Filt Rate - Afr Amer 23 mL/min (>60); Estimated Creatinine Clearance 17.47 ml/min; Globulin 3.8 g/dL (2.2-4.2); Glucose 187 mg/dL (74-106); Potassium 4.2 mmol/L (3.5-5.1); Protein, Total 4.8 g/dL (6.4-8.2); Sodium Level 143 mmol/L (136-145)
[2022-08-08 09:56] LABS: Bedside Glucose 184 mg/dL (74-106)
[2022-08-08 13:21] LABS: Bedside Glucose 176 mg/dL (74-106)
--- NOTE | 2022-08-08 13:52 | PCM.PN.INT ---
Assessment & Plan Assessment/Plan (1) Septic shock: PLAN: Plan 1. Septic shock, remains on pressors, source is uncertain although sinuses are a possibility, differential also includes pneumonia, vascular -Vancomycin with doses to be monitored by pharmacy -Zosyn - Add micafungin since WBC still up and still remains on pressors -Titrate norepinephrine to MAP greater than 65 via new right femoral central line. Do not remove this femoral line per protocol prior to at least 48 hours, due to the patient's very limited vascular access. The risk-benefit analysis currently lies on the side of maintaining the femoral line as long as she needs vasoactive drips, although the femoral site has known increased risk of infection. -Chlorhexidine washes daily in the ICU, careful skin and perineal care to maintain cleanliness and minimize line contamination. -ID consult due to recent, complex infection with MRSA -Further work-up as needed for possible sources -Continue empiric hydrocortisone, although patient and daughter denies adrenal insufficiency in the past or chronic steroid therapy -Check TSH 2. End-stage renal disease, on Wednesday dialysis, last dialysis Wednesday. Electrolytes are acceptable. Fluid balance is positive . We will resume regular dialysis at renal's discretion. 3. Hypoglycemia, with altered mental status. The amount of time spent with low glucose is unknown. Encouragingly, the patient seems to be recovering her mental status upon arrival in ICU -Q2H POC glucose, supplement as needed -D5 normal saline at 50 cc/h or less -Predischarge planning will need to include addressing her diabetes regimen in hopes of preventing a future episode of hypoglycemia -Routine neurochecks -Consult OT, PT -Severely decreased p.o. intake with 40% weight loss last summer due to patient's inability to eat. Denies dysphagia, discussed with daughter today, who would like to have a Dobbhoff tube placed. However she does not want another PEG tube placed. - Continue feeding with Dopphoff tube 4. Coronary artery disease: Ejection fraction 60% without diastolic dysfunction, 1-2+ aortic valve insufficiency. No significant pulmonary hypertension, PAS is 35 mmHg. 5. Type 2 diabetes, uncontrolled, management per primary team. 6. Stage I pressure injury of sacral region, routine skin care per primary 7. Severe protein calorie malnutrition 8. Severe anemia of chronic disease, transfused 2 units August 06 -Give fluids cautiously, she can only be diuresed via dialysis. Avoid fluid overload. 9. History of CVA, bedbound, with extensive decreased range of motion -PT, OT 10. Limited vascular access: Venous ultrasound in May 2022 showed widely patent upper veins via extremity venous Dopplers 11. Chronic edema, this is likely due to a combination of severe hypoalbuminemia, with superimposed renal failure. Notably, CT scan of the abdomen and pelvis April 2022 showed ascites, bilateral pleural effusion, dependent lower lobe consolidation, subcutaneous edema. Supportive care is recommended. 12. Discussed current state, patient's chronic illness, acute process of shock and her overall goals of care in detail with the daughter and son in law. They are leaning towards palliative care but want family members from [place] to come see her. Continue ongoing discussions. Critical care time spent with patient at bedside, review of documentation, lab results, radiology and other test results, discussion with colleagues and ancillary staff, clinical management of patient, and updating family if applicable, was 40 minutes. This time does not include any procedures, if performed. [place] [address]. Subjective Subjective Opens eyes, turns towards visitors, smiles appropriately, tries to mouth 5 or 6 unintelligible words. Patient's daughter Ingrid was in the room and stated that the patient is able to talk fluently and understandably. This is a significant change for her. However, she has improved a lot compared to yesterday when she was completely nonverbal. She has nonspecific diffuse pain and was not able to tell us where. Patient unable to answer subjective questions Ingrid confirmed that patient has been bedbound and not in a chair for many months. She remains on Levophed at 15 mcg/min, and is saturating well on room air. Objective Data Objective Data Vital Signs: Vital Signs Temp Pulse Resp BP Pulse Ox O2 Del Method 36.5 C L 80 16 114/47 L 98 Room Air 08/08/22 05:00 08/08/22 07:00 08/08/22 07:00 08/08/22 13:00 08/08/22 07:25 08/08/22 08:00 Oxygen Delivery Method Room Air Weight: 92.3 kg Body Mass Index (BMI) 32.2 Intake & Output: Intake and Output for Last 24 Hours 08/06/22 08/07/22 08/08/22 23:59 23:59 23:59 Intake Total 5761.85 / 5787.00 978.27 / 1123.02 1703.05 / 1703.05 Output Total 0 / 0 Balance 5761.85 / 5787.00 978.27 / 1123.02 1703.05 / 1703.05 Lab / Micro Data Result Diagrams: 08/08/22 09:00 08/08/22 09:00 Labs: Laboratory Results - last 24 hr 08/07/22 04:15: TSH 0.31 L 08/07/22 20:07: POC Glucose 99 08/07/22 23:27: POC Glucose 115 H 08/08/22 05:09: POC Glucose 147 H 08/08/22 08:56: POC Glucose 184 H 08/08/22 09:00: WBC 18.1 H, RBC 2.98 L, Hgb 9.0 L, Hct 27.3 L, MCV 91.6, MCH 30.2, MCHC 33.0, RDW Std Deviation 60.6 H, RDW Coeff of Jnena 18.3 H, Plt Count 219, MPV 10.7, Immature Gran % (Auto) 1.000 H, Neut % (Auto) 91.5 H, Lymph % (Auto) 4.0 L, [place] % (Auto) 3.4, Eos % (Auto) 0.0, Baso % (Auto) 0.1, Absolute Neuts (auto) 16.6 H, Absolute Lymphs (auto) 0.73 L, Nucleated RBC % 0 08/08/22 09:00: Sodium 143, Potassium 4.2, Chloride 107, Carbon Dioxide 22.0, Anion Gap 14, BUN 18, Creatinine 2.62 H, Estim Creat Clear Calc 17.47, Est GFR (MDRD) Af Amer 23 L, Est GFR (MDRD) Non-Af 19 L, BUN/Creatinine Ratio 6.9 L, Glucose 187 H, Calcium 5.9 L*, Total Bilirubin 1.80 H, AST 129 H, ALT 34, Alkaline Phosphatase 397 H, Total Protein 4.8 L, Albumin 1.0 L, Globulin 3.8, Albumin/Globulin Ratio 0.3 L 08/08/22 13:00: POC Glucose 176 H Radiography Diagnostic Testing: Radiology Impression Echocardiogram 08/07/22 12:40 Interpretation Summary Mild concentric left ventricular hypertrophy. The left ventricular ejection fraction is 50 %. Mildly dilated right ventricle. Mild global right ventricular systolic dysfunction. Atherosclerotic plaque noted aortic root. No vegetations noted on this surface study. Consider FARZANA for further evaluation if clinical concern for endocarditis. Ordering Physician: Lai Muhammad Referring Physician: Jonh Solis Performed By: Jim Juarez RCS X-Ray 08/07/22 15:35 IMPRESSION: There is a feeding tube/ nasogastric tube noted. The tip is in the region of the stomach. Electronically Signed: Reid Mendes MD at 16:22 EDT , Physical Exam Narrative Chronically ill-appearing woman, appearing her stated age, who is breathing comfortably, groaning, speaking unintelligible garbled words, normotensive on Levophed. Daughter at bedside during interdisciplinary rounds. HEENT: Mucous membranes dry, extraocular is intact, able to focus and track. Chronic right swelling and scarring of the periorbital tissues, no purulence. Blind in right eye. Left unremarkable. Neck is supple, short, no thyromegaly. Lungs are diminished, grossly clear. Dialysis port, tunneled 2 lumen without pigtail, in right subclavian area, clean and dry without purulence or erythema at insertion site. No use of accessory muscles. Heart normal S1-S2 with no murmurs. Abdomen is soft, obese, nontender, no organomegaly Extremities have a stage I pressure injury of the sacrum, extensive scarring of both groins, bilateral neck from prior instrumentation, fresh dressing at the left IJ with no active bleeding clean and dry. Thin, fragile skin with extensive ecchymoses and chronic venous stasis changes and edema pitting 3+ of lower extremities. Neuro: Chronically bedbound, severely decreased mobility with stiffness and markedly reduced range of motion in all extremities.
--- NOTE | 2022-08-08 14:45 | PN.HOSP_ITS ---
Subjective Subjective Patient was seen and examined today, she is less alert today, blood pressure at this time remained stable on pressor agents. White blood cell count was 18.1 today, patient will be dialyzed today. The intensive care physician talked with the patient's family today according to nursing about continuing aggressive c are, at this time they were not for stopping any care just yet, patient is a DNR CC arrest no intubation however. Objective Data Objective Data Vital Signs: Vital Signs Temp Pulse Resp BP Pulse Ox O2 Del Method 97.7 F L 80 16 114/47 L 98 Room Air 08/08/22 05:00 08/08/22 07:00 08/08/22 07:00 08/08/22 13:00 08/08/22 07:25 08/08/22 08:00 Oxygen Delivery Method Room Air Weight: 92.3 kg Body Mass Index (BMI) 32.2 Intake & Output: Intake and Output for Last 24 Hours 08/06/22 08/07/22 08/08/22 23:59 23:59 23:59 Intake Total 5761.85 / 5787.00 978.27 / 1123.02 1703.05 / 1703.05 Output Total 0 / 0 Balance 5761.85 / 5787.00 978.27 / 1123.02 1703.05 / 1703.05 Lab / Micro Data Result Diagrams: 08/08/22 09:00 08/08/22 09:00 Labs: Laboratory Results - last 24 hr 08/07/22 04:15: TSH 0.31 L 08/07/22 20:07: POC Glucose 99 08/07/22 23:27: POC Glucose 115 H 08/08/22 05:09: POC Glucose 147 H 08/08/22 08:56: POC Glucose 184 H 08/08/22 09:00: WBC 18.1 H, RBC 2.98 L, Hgb 9.0 L, Hct 27.3 L, MCV 91.6, MCH 30.2, MCHC 33.0, RDW Std Deviation 60.6 H, RDW Coeff of Jenna 18.3 H, Plt Count 219, MPV 10.7, Immature Gran % (Auto) 1.000 H, Neut % (Auto) 91.5 H, Lymph % (Auto) 4.0 L, [place] % (Auto) 3.4, Eos % (Auto) 0.0, Baso % (Auto) 0.1, Absolute Neuts (auto) 16.6 H, Absolute Lymphs (auto) 0.73 L, Nucleated RBC % 0 08/08/22 09:00: Sodium 143, Potassium 4.2, Chloride 107, Carbon Dioxide 22.0, Anion Gap 14, BUN 18, Creatinine 2.62 H, Estim Creat Clear Calc 17.47, Est GFR (MDRD) Af Amer 23 L, Est GFR (MDRD) Non-Af 19 L, BUN/Creatinine Ratio 6.9 L, Glucose 187 H, Calcium 5.9 L*, Total Bilirubin 1.80 H, AST 129 H, ALT 34, Alkaline Phosphatase 397 H, Total Protein 4.8 L, Albumin 1.0 L, Globulin 3.8, Albumin/Globulin Ratio 0.3 L 08/08/22 13:00: POC Glucose 176 H Radiography Diagnostic Testing: Radiology Impression Echocardiogram 08/07/22 12:40 Interpretation Summary Mild concentric left ventricular hypertrophy. The left ventricular ejection fraction is 50 %. Mildly dilated right ventricle. Mild global right ventricular systolic dysfunction. Atherosclerotic plaque noted aortic root. No vegetations noted on this surface study. Consider FARZANA for further evaluation if clinical concern for endocarditis. Ordering Physician: Lai Muhammad Referring Physician: Jonh Solis Performed By: Jim Juarez RCS X-Ray 08/07/22 15:35 IMPRESSION: There is a feeding tube/ nasogastric tube noted. The tip is in the region of the stomach. Electronically Signed: Reid Mendes MD at 16:22 EDT , Physical Exam Narrative Constitutional Narrative: Patient is lethargic and does not carry on a conversation or speak HEENT normocephalic, head/scalp atraumatic and moist oral mucous membranes Eyes PERRL, EOMs intact bilaterally and conjunctivae normal Neck supple, no JVD, thyroid normal and no carotid bruits General: trachea midline Resp normal respiratory effort, no retractions, no use of accessory muscles and clear to auscultation bilaterally Auscultation: Negative for rales, rhonchi or wheezes Cardio regular rate, regular rhythm, S1 normal heart sound, S2 normal heart sound, no murmurs, no rub and no gallops Cardio Narrative: A tunneled dialysis catheter is in place in the right chest wall GI normal to inspection, nondistended, normoactive bowel sounds, soft to palpation, non-tender and non-distended Extremity no clubbing, cyanosis or edema Skin no rashes or lesions noted General Skin Exam: no breakdown Neuro CN's II-XII intact bilaterally Neuro Narrative: Patient unable to carry on a conversation, she appears lethargic Sensorium / Orientation: awake and alert Psych Psych Narrative: Patient is lethargic and unable to carry on a conversation Assessment & Plan Assessment/Plan (1) Hypoglycemia: (2) Septic shock: PLAN: Plan 1. Septic shock-most likely secondary to catheter associated infection-continue IV antibiotics and fluids as well as pressors for now under direction of infectious diseases and critical care, cultures are pending According to the emergency room physician, patient's daughter states that the patient is a DNR CC arrest no intubation. #2 hypoglycemia-probably secondary to septic shock, blood sugars will be monitored, currently patient is not hypoglycemic #3 cerebrovascular disease-complicates care, management, recovery, and prognosis #4 type 2 diabetes-blood sugars will be monitored #5 end-stage renal disease on dialysis-due to hypotension, patient will not undergo dialysis today, nephrology is participating in her care, she will undergo dialysis today #6 coronary artery disease-complicates care, management, recovery, and prognosis #7 hyperlipidemia-patient is n.p.o. at this time due to metabolic encephalopathy #8 metabolic encephalopathy secondary to septic shock-supportive care will be given #9 left hemiparesis secondary to remote stroke-complicates care, management, recovery, and prognosis Prognosis remains extremely guarded Charges/Coding Visit Charges Inpatient E&M: 93533 Subs Hosp L2
[2022-08-08] MEDS: Epoetin Alfa epbx 10,000 UNITS/ML 10000 UNIT IV (15:30)
[2022-08-08] MEDS: Albumin Human 25% (100 mL) 25 GM/100 ML BAG IV (15:54)
[2022-08-08 16:18] LABS: Vancomycin, Trough Level 21.2 ug/mL (5.0-15.0)
--- NOTE | 2022-08-08 17:26 | DIALYSIS ---
Addendum entered by Viraj Dickerson 08/08/22 17:33: 1500 Telephone order (with read-back confirmation) received by [facility] - [facility] ([facility]) from Hardeep Chandra MD (Nephrology). Hemodialysis bath 3K/2.5Ca, 35HCo3/138Na, BFR 300/DFR 600, treatment duration 4 hours, goal UF 1000ml as tolerated using crit. profile B, NS boluses PRN for line flushes or hypotension. Give 25 grams/100 ml albumin x1 upon initiation of hemodialysis treatment. Original Note: 1500 Telephone order with read-back confirmation received by Y[facility]Y - [facility] ([facility]) from Hardeep Chandra MD (Nephrology). Hemodiaysis bath 3K/2.5Ca, 35HCo3/138Na, BFR 300/DFR 600, treatment duration 4 hours, goal UF 1000ml as tolerated using crit. profile B, NS boluses PRN for line flushes or hypotension. Give 25 grams/100 ml albumin x1 upon initiation of hemodialysis treatment.
--- NOTE | 2022-08-08 17:52 | CM.ED ---
SW met with Tamara who stated that family was in waiting room and may benefit from social work support. SW met with patient's daughter and family and introduced self. Daughter advised that she had no social work needs. SW remains available if needs arise. Plan: Emotional Support is available from social work supervisor if needed. Chari SAHNI
--- NOTE | 2022-08-08 18:40 | NURSING ---
education re chronic illness deferred till acute illness resolving
[2022-08-08 18:46] LABS: Bedside Glucose 142 mg/dL (74-106)
--- NOTE | 2022-08-08 19:09 | DIALYSIS ---
1930 Hemodialysis x 4.0 hours, 3K/2.5Ca bath, Net UF 1000- ml, VSS (Bp supported by norepi. gtt at 20 mcg/min - unchanged during HD). Blood returned to patient, HD ports heparinized, RN report at bedside.
[2022-08-08] MEDS: Heparin 10,000 UNITS/10 ML Vial 3400 UNITS IV (19:40)
[2022-08-08] MEDS: NEPRO TUBE FEED 1,000 ML 45 ML GT (21:43)
[2022-08-08 22:56] LABS: Bedside Glucose 184 mg/dL (74-106)
[2022-08-09] VITALS (28 sets, daily range): BP systolic 99–143; BP diastolic 50–93; PULSE 81–89; RESP 14–32; TEMP 36.4–36.9; O2SAT 95–97
[2022-08-09 04:31] LABS: Bedside Glucose 211 mg/dL (74-106)
[2022-08-09] MEDS: Hydrocortisone Sod Succinate 100 MG/2 ML Vial IV (05:31)
[2022-08-09] MEDS: 0.9% Saline Lock 10 ML Syringe IV ×2 (05:31→20:39)
[2022-08-09] MEDS: CHLORHEXIDINE GLUC 2% CLOTH 1 EACH TOWELETTE TOPICAL (05:32)
[2022-08-09 06:53] LABS: Vancomycin, Random Level 26.2 ug/mL (0.0-15.0)
[2022-08-09] MEDS: Phytonadione (Vit K1) 5 MG TABLET PO (08:05)
[2022-08-09] MEDS: Carboxymethylcellulose sodium gel dropperette 1 EACH RIGHT EYE ×2 (08:05→20:38)
[2022-08-09 11:26] LABS: Bedside Glucose 289 mg/dL (74-106)
--- NOTE | 2022-08-09 12:13 | PN.CC_ITS ---
Assessment & Plan Assessment/Plan (1) Septic shock: PLAN: Plan 1. Septic shock, remains on pressors, source is uncertain although sinuses are a possibility, differential also includes pneumonia, vascular -Vancomycin with doses to be monitored by pharmacy -Zosyn - Added micafungin since WBC still up and still remains on pressors -Titrate norepinephrine to MAP greater than 65 via new right femoral central li ne. Do not remove this femoral line per protocol prior to at least 48 hours, due to the patient's very limited vascular access. The risk-benefit analysis currently lies on the side of maintaining the femoral line as long as she needs vasoactive drips, although the femoral site has known increased risk of infection. -Chlorhexidine washes daily in the ICU, careful skin and perineal care to maintain cleanliness and minimize line contamination. -ID consult due to recent, complex infection with MRSA -Continue empiric hydrocortisone, although patient and daughter denies adrenal insufficiency in the past or chronic steroid therapy - So far has been off pressors this am 2. End-stage renal disease, on Wednesday dialysis, last dialysis Wednesday. Electrolytes are acceptable. Fluid balance is positive . We will resume regular dialysis at renal's discretion. 3. Hypoglycemia, with altered mental status. The amount of time spent with low glucose is unknown. Encouragingly, the patient seems to be recovering her mental status upon arrival in ICU Now sugars have been better -Can change to Q6H accuchecks -Predischarge planning will need to include addressing her diabetes regimen in hopes of preventing a future episode of hypoglycemia -Routine neurochecks -Consult OT, PT -Severely decreased p.o. intake with 40% weight loss last summer due to hiren hinson's inability to eat. Denies dysphagia, discussed with daughter today, who would like to have a Dobbhoff tube placed. However she does not want another PEG tube placed. - Continue feeding with Dopphoff tube 4. Coronary artery disease: Ejection fraction 60% without diastolic dysfunction, 1-2+ aortic valve insufficiency. No significant pulmonary hypertension, PAS is 35 mmHg. 5. Type 2 diabetes, uncontrolled, management per primary team. 6. Stage I pressure injury of sacral region, routine skin care per primary 7. Severe protein calorie malnutrition 8. Severe anemia of chronic disease, transfused 2 units August 06 -Give fluids cautiously, she can only be diuresed via dialysis. Avoid fluid overload. 9. History of CVA, bedbound, with extensive decreased range of motion -PT, OT 10. Limited vascular access: Venous ultrasound in May 2022 showed widely patent upper veins via extremity venous Dopplers 11. Chronic edema, this is likely due to a combination of severe hy poalbuminemia, with superimposed renal failure. Notably, CT scan of the abdomen and pelvis April 2022 showed ascites, bilateral pleural effusion, dependent lower lobe consolidation, subcutaneous edema. Supportive care is recommended. 12. Discussed current state, patient's chronic illness, acute process of shock and her overall goals of care in detail with the daughter and son in law. They are leaning towards palliative care but want family members from [place] to come see her. Continue ongoing discussions. Since she is off pressors today, family is cautiously optimistic. Critical care time spent with patient at bedside, review of documentation, lab results, radiology and other test results, discussion with colleagues and ancillary staff, clinical management of patient, and updating family if applicable, was 36 minutes. This time does not include any procedures, if performed[place] [address]. Subjective Subjective Patient was seen and examined today. She received dialysis yesterday and started micafungin as well. She is off pressors now with stable hemodynamics. Family informed of the same. She still is non verbal - apparently smiled at her daughter today. Objective Data Objective Data Vital Signs: Vital Signs Temp Pulse Resp BP Pulse Ox O2 Del Method 36.9 C 85 19 H 123/60 H 96 Room Air 08/09/22 12:00 08/09/22 12:00 08/09/22 12:00 08/09/22 12:00 08/09/22 12:00 08/09/22 12:00 Oxygen Delivery Method Room Air Weight: 92.3 kg Body Mass Index (BMI) 32.2 Intake & Output: Intake and Output for Last 24 Hours 08/07/22 08/08/22 08/09/22 23:59 23:59 23:59 Intake Total 978.27 / 1123.02 3312.92 / 3357.02 421.58 / 421.58 Output Total 0 / 0 Balance 978.27 / 1123.02 3312.92 / 3357.02 421.58 / 421.58 Lab / Micro Data Result Diagrams: 08/08/22 09:00 08/08/22 09:00 Labs: Laboratory Results - last 24 hr 08/08/22 13:00: POC Glucose 176 H 08/08/22 14:40: Vancomycin Trough 21.2 H 08/08/22 18:24: POC Glucose 142 H 08/08/22 22:36: POC Glucose 184 H 08/09/22 04:09: POC Glucose 211 H 08/09/22 05:36: Random Vancomycin 26.2 H 08/09/22 11:05: POC Glucose 289 H Micro: Microbiology 08/06/22 08:40 Blood Culture (Wb) - Chest Blood Culture - Preliminary No growth in 48 hours. 08/06/22 08:45 Blood Culture (Wb) - Left Hand Blood Culture - Preliminary No growth in 48 hours. Radiography Diagnostic Testing: Radiology Impression Echocardiogram 08/07/22 12:40 Interpretation Summary Mild concentric left ventricular hypertrophy. The left ventricular ejection fraction is 50 %. Mildly dilated right ventricle. Mild global right ventricular systolic dysfunction. Atherosclerotic plaque noted aortic root. No vegetations noted on this surface study. Consider FARZANA for further evaluation if clinical concern for endocarditis. Ordering Physician: Lai Muhammad Referring Physician: Jonh Solis Performed By: Jim Juarez RCS Physical Exam Narrative Constitutional Narrative: Patient is lethargic and does not carry on a conversation or speak HEENT normocephalic, head/scalp atraumatic and moist oral mucous membranes Eyes PERRL, EOMs intact bilaterally and conjunctivae normal Neck supple, no JVD, thyroid normal and no carotid bruits General: trachea midline Resp normal respiratory effort, no retractions, no use of accessory muscles and clear to auscultation bilaterally Auscultation: Negative for rales, rhonchi or wheezes Cardio regular rate, regular rhythm, S1 normal heart sound, S2 normal heart sound, no murmurs, no rub and no gallops Cardio Narrative: A tunneled dialysis catheter is in place in the right chest wall GI normal to inspection, nondistended, normoactive bowel sounds, soft to palpation, non-tender and non-distended Extremity no clubbing, cyanosis or edema Skin no rashes or lesions noted General Skin Exam: no breakdown Neuro CN's II-XII intact bilaterally Neuro Narrative: Patient unable to carry on a conversation, she appears lethargic Sensorium / Orientation: awake and alert Psych Psych Narrative: Patient is lethargic and unable to carry on a conversation
[2022-08-09] MEDS: Heparin Injection (Vial) 5,000 UNIT/ML VIAL 5000 UNIT SC (14:17)
--- NOTE | 2022-08-09 14:59 | PCM.PN.HOSP ---
Subjective Subjective Patient was seen and examined today, she remains minimally responsive, blood pressure is stable however off pressor agents at this time. Patient has been having some bleeding from her IV sites, not her dialysis catheter however, I have asked nursing to obtain coags and stop her subcu heparin at this time. Overall prognosis remains poor, we are currently awaiting additional family members to fly and to see the patient. Again patient is a DNR CC arrest with no intubation. Objective Data Objective Data Vital Signs: Vital Signs Temp Pulse Resp BP Pulse Ox O2 Del Method 98.4 F 85 19 H 123/60 H 97 Room Air 08/09/22 12:00 08/09/22 12:00 08/09/22 12:00 08/09/22 12:00 08/09/22 12:00 08/09/22 12:00 Oxygen Delivery Method Room Air Weight: 92.3 kg Body Mass Index (BMI) 32.2 Intake & Output: Intake and Output for Last 24 Hours 08/07/22 08/08/22 08/09/22 23:59 23:59 23:59 Intake Total 978.27 / 1123.02 3312.92 / 3357.02 1217.08 / 1217.08 Output Total 0 / 0 Balance 978.27 / 1123.02 3312.92 / 3357.02 1217.08 / 1217.08 Lab / Micro Data Result Diagrams: 08/08/22 09:00 08/08/22 09:00 Labs: Laboratory Results - last 24 hr 08/08/22 14:40: Vancomycin Trough 21.2 H 08/08/22 18:24: POC Glucose 142 H 08/08/22 22:36: POC Glucose 184 H 08/09/22 04:09: POC Glucose 211 H 08/09/22 05:36: Random Vancomycin 26.2 H 08/09/22 11:05: POC Glucose 289 H Micro: Microbiology 08/06/22 08:40 Blood Culture (Wb) - Chest Blood Culture - Preliminary No growth in 48 hours. 08/06/22 08:45 Blood Culture (Wb) - Left Hand Blood Culture - Preliminary No growth in 48 hours. Physical Exam Narrative Constitutional Narrative: Patient is lethargic and does not carry on a conversation or speak HEENT normocephalic, head/scalp atraumatic and moist oral mucous membranes Eyes PERRL, EOMs intact bilaterally and conjunctivae normal Neck supple, no JVD, thyroid normal and no carotid bruits General: trachea midline Resp normal respiratory effort, no retractions, no use of accessory muscles and clear to auscultation bilaterally Auscultation: Negative for rales, rhonchi or wheezes Cardio regular rate, regular rhythm, S1 normal heart sound, S2 normal heart sound, no murmurs, no rub and no gallops Cardio Narrative: A tunneled dialysis catheter is in place in the right chest wall GI normal to inspection, nondistended, normoactive bowel sounds, soft to palpation, non-tender and non-distended Extremity no clubbing, cyanosis or edema Skin no rashes or lesions noted General Skin Exam: no breakdown Neuro CN's II-XII intact bilaterally Neuro Narrative: Patient unable to carry on a conversation, she appears lethargic Sensorium / Orientation: awake and alert Psych Psych Narrative: Patient is lethargic and unable to carry on a conversation Assessment & Plan Assessment/Plan (1) Diabetes mellitus type 2 in obese: (2) Hypoglycemia: (3) Septic shock: PLAN: Plan 1. Septic shock-most likely secondary to catheter associated infection-continue IV antibiotics and fluids for now under direction of infectious diseases and critical care, cultures are pending #2 hypoglycemia-probably secondary to septic shock, blood sugars will be monitored, currently patient's blood sugars have been elevated, I will place her on sliding scale insulin coverage every 6 hours #3 cerebrovascular disease-complicates care, management, recovery, and prognosis #4 type 2 diabetes-blood sugars will be monitored #5 end-stage renal disease on dialysis-patient underwent dialysis yesterday, it is unknown whether patient will be dialyzed again today #6 coronary artery disease-complicates care, management, recovery, and prognosis #7 hyperlipidemia-patient is n.p.o. at this time due to metabolic encephalopathy #8 metabolic encephalopathy secondary to septic shock-supportive care will be given #9 left hemiparesis secondary to remote stroke-complicates care, management, recovery, and prognosis Prognosis remains extremely guarded Charges/Coding Visit Charges Inpatient E&M: 34898 Subs Hosp L2
--- NOTE | 2022-08-09 18:26 | NURSING ---
education on chronic illness deferred as pt is now end of life care
[2022-08-09] MEDS: NEPRO TUBE FEED 1,000 ML 45 ML GT (19:57)
[2022-08-09] MEDS: Ketorolac 10 MG Tablet NG (20:37)
[2022-08-09] MEDS: Chlorhexidine 15 ML PO (20:48)
[2022-08-10 01:35] VITALS: BP 119/40; PULSE 89; RESP 36; O2SAT 75
[2022-08-10 02:30] VITALS: O2SAT 97
--- NOTE | 2022-08-10 06:33 | PN.CC_ITS ---
Assessment & Plan Assessment/Plan (1) Septic shock: PLAN: Plan Assessment: 1. Septic shock 2. End-stage renal disease 3. Encephalopathy 4. Coronary artery disease 5. Diabetes mellitus Plan: 1. CODE STATUS updated to DNR CC with plans for discharge today and initiation of hospice care services. 2. Continue nutritional support with tube feeds for now. This note was generated with [employer] dictation software. It may contain incorrect words, spelling, and punctuation that were not noted in checking the note before signing. Subjective Subjective The patient was seen and examined at the bedside this morning. Events from the last 24 hours have been reviewed. The patient is currently afebrile, hemodynamically stable and maintaining appropriate oxygen saturations on room air. No overnight issues were identified by the nursing staff. There are tentative plans for the patient to return home today with hospice care services. Objective Data Objective Data The patient's most recent lab work, culture data and imaging studies have all been personally reviewed. Vital Signs: Vital Signs Temp Pulse Resp BP Pulse Ox O2 Del Method 97.7 F L 89 36 H 119/40 L 97 Room Air 08/09/22 20:53 08/10/22 01:35 08/10/22 01:35 08/10/22 01:35 08/10/22 02:30 08/10/22 02:30 Oxygen Delivery Method Room Air Weight: 203 lb 7.787 oz Body Mass Index (BMI) 32.2 Intake & Output: Intake and Output for Last 24 Hours 08/08/22 08/09/22 08/10/22 23:59 23:59 23:59 Intake Total 3312.92 / 3357.02 1471.58 / 1501.58 80 / 80 Output Total 0 / 0 Balance 3312.92 / 3357.02 1471.58 / 1501.58 80 / 80 Lab / Micro Data Attestation: I reviewed the patient's lab results. Result Diagrams: 08/08/22 09:00 08/08/22 09:00 Labs: Laboratory Results - last 24 hr 08/09/22 05:36: Random Vancomycin 26.2 H 08/09/22 11:05: POC Glucose 289 H Micro: Microbiology 08/06/22 08:40 Blood Culture (Wb) - Chest Blood Culture - Preliminary No growth in 48 hours. 08/06/22 08:45 Blood Culture (Wb) - Left Hand Blood Culture - Preliminary No growth in 48 hours. Physical Exam Const Constitutional Narrative: Lethargic. Does not engage in any meaningful conversation or interaction. HEENT normocephalic and head/scalp atraumatic Eyes PERRL and EOMs intact bilaterally Neck supple General: trachea midline Chest inspection of chest normal Resp normal respiratory effort Auscultation: Negative for rales, rhonchi or wheezes Cardio regular rate and regular rhythm GI normal to inspection, nondistended, normoactive bowel sounds Extremity no clubbing, cyanosis or edema Neuro Neuro Narrative: Lethargic. No focal deficits. Psych Mood & Affect: flat affect Charges/Coding Visit Charges Inpatient E&M: 21782 Subs Hosp L2
[2022-08-10 07:14] VITALS: O2SAT 96
--- NOTE | 2022-08-10 07:16 | PN.HOSP_ITS ---
Subjective Subjective Patient is a 72-year-old lady admitted with altered mental status. An assessment of septic shock secondary to catheter associated infection made admitted to the intensive care unit where patient has since been managed Objective Data Objective Data Vital Signs: Vital Signs Temp Pulse Resp BP Pulse Ox O2 Del Method 97.7 F L 89 36 H 119/40 L 96 Room Air 08/09/22 20:53 08/10/22 01:35 08/10/22 01:35 08/10/22 01:35 08/10/22 07:14 08/10/22 07:14 Oxygen Delivery Method Room Air Weight: 92.3 kg Body Mass Index (BMI) 32.2 Intake & Output: Intake and Output for Last 24 Hours 08/08/22 08/09/22 08/10/22 23:59 23:59 23:59 Intake Total 3312.92 / 3357.02 1471.58 / 1501.58 80 / 80 Output Total 0 / 0 Balance 3312.92 / 3357.02 1471.58 / 1501.58 80 / 80 Lab / Micro Data Result Diagrams: 08/08/22 09:00 08/08/22 09:00 Labs: Laboratory Results - last 24 hr 08/09/22 11:05: POC Glucose 289 H Micro: Microbiology 08/06/22 08:40 Blood Culture (Wb) - Chest Blood Culture - Preliminary No growth in 48 hours. 08/06/22 08:45 Blood Culture (Wb) - Left Hand Blood Culture - Preliminary No growth in 48 hours. Physical Exam Narrative GENERAL: Obtunded HEENT: Atraumatic; normocephalic EYES; Anicteric, Normal Conjunctiva NECK; supple, normal thyroid, RESPIRATORY: Diminished to auscultation CARDIOVASCULAR: Regular S1 S2, GI: soft, normoactive bowel sounds, : No Renal angle tenderness; EXTREMITIES: No edema, no clubbing, MUSCULOSKELETAL: no muscle wasting NEURO: Obtunded Assessment & Plan Assessment/Plan (1) Diabetes mellitus type 2 in obese: (2) Hypoglycemia: (3) Septic shock: PLAN: Plan Patient is a 72-year-old lady admitted with altered mental status. An assessment of septic shock secondary to catheter associated infection made admitted to the intensive care unit where patient has since been managed 1. Septic shock Secondary to catheter associated infection. Admitted to intensive care unit managed for protocol patient clinical condition however continues to deteriora te. CODE STATUS changed to DNR comfort care. Hospice consulted 2. Hypoglycemia 3. Diabetes mellitus type 2 4. CVA with residual left-sided hemiparesis 5. Coronary artery disease 6. Dyslipidemia 7. Acute metabolic encephalopathy Prognosis; grave Charges/Coding Visit Charges Inpatient E&M: 08996 Subs Hosp L2
[2022-08-10 08:17] VITALS: BP 148/67; PULSE 83; RESP 20; TEMP 36.8; O2SAT 95
[2022-08-10] MEDS: predniSONE 20 MG Tablet 40 MG NG (08:23)
[2022-08-10] MEDS: Carboxymethylcellulose sodium gel dropperette 1 EACH RIGHT EYE (10:34)
[2022-08-10] MEDS: Chlorhexidine 15 ML PO (10:35)
[2022-08-10] MEDS: Ketorolac 10 MG Tablet NG (10:57)
--- NOTE | 2022-08-10 11:06 | CASEMGMT ---
SW received a call from Jeremiah with Hospice. Family signed Hospice papers and they want to take patient home at discharge on Hospice. The O2 should be delivered between 1 and 2. Hospice cannot transport until 4p and family wants patient home sooner than that. SW spoke with family and they confirmed this plan. SARA arranged for patient to get picked up at 2p via cot. SARA notified RN, ICU PRINTER MACHINE, patient's family, physician, and Jeremiah with Hospice. All in agreement with d/c plan. Plan: d/c home on [facility]. [facility] will transport via cot at 2p. Anna Hernandez TRANSLATOR DEAF JOVAN
--- NOTE | 2022-08-10 11:08 | PCM.PN.REN ---
Subjective Subjective remains in ICU. Blood cx no growth so far. Remains on iv antibx, vanco and zosyn with leukocytosis. Last dialysis Sat. Spoke with family, pt dtr at bedside. Pt going home with hospice per pt wishes, no further dialysis. Objective Data Objective Data Vital Signs: Vital Signs Temp Pulse Resp BP Pulse Ox O2 Del Method 98.2 F 83 20 H 148/67 H 95 Room Air 08/10/22 08:17 08/10/22 08:17 08/10/22 08:17 08/10/22 08:17 08/10/22 08:17 08/10/22 08:30 Oxygen Delivery Method Room Air Weight: 92.3 kg Body Mass Index (BMI) 32.2 Intake & Output: Intake and Output for Last 24 Hours 08/08/22 08/09/22 08/10/22 23:59 23:59 23:59 Intake Total 3312.92 / 3357.02 1471.58 / 1501.58 110 / 110 Output Total 0 / 0 Balance 3312.92 / 3357.02 1471.58 / 1501.58 110 / 110 Lab / Micro Data Result Diagrams: 08/08/22 09:00 08/08/22 09:00 Labs: Laboratory Results - last 24 hr 08/09/22 11:05: POC Glucose 289 H Micro: Microbiology 08/06/22 08:40 Blood Culture (Wb) - Chest Blood Culture - Preliminary No growth in 48 hours. 08/06/22 08:45 Blood Culture (Wb) - Left Hand Blood Culture - Preliminary No growth in 48 hours. Physical Exam Const Constitutional Narrative: decreased mentation, opens eyes to verbal stimuli, nonverbal
--- NOTE | 2022-08-10 11:39 | DS.PCM_ITS ---
Providers Date of Admission: 08/06/22 Date of Discharge: 08/10/22 Primary Care Physician: Dr. Jonh Solis MD Consultations 08/06/22 13:27 Consult: Infectious Disease Routine Consulting Provider: Lai Muhammad Reason for Consult: sepsis EMERGENT Consult: No Notified: Yes Date Notified: 08/06/22 Time Notified: 11:58 Method of Notification: Verbal Consult: Television Repair Teacher / Pulmonary Medicine Routine Consulting Provider: Pulmonary Medicine linsey Ninole Reason for Consult: sepsis, hypotension, IV access EMERGENT Consult: No Notified: Yes Date Notified: 08/06/22 Time Notified: 11:57 Method of Notification: Verbal Consult: Nephrology Routine Consulting Provider: Leanna Chandra Reason for Consult: need for ongoing dialysis EMERGENT Consult: No Notified: Yes Date Notified: 08/06/22 Time Notified: 11:58 Method of Notification: Verbal 08/09/22 17:03 Consult: Hospice / Palliative Care Routine Consulting Provider: [facility] Reason for Consult: end of life care, septic shock EMERGENT Consult: No Notified: Yes Date Notified: 08/10/22 Time Notified: 09:00 Method of Notification: Verbal Reason For Visit: ALTERED MENTAL STATUS, HYPOTENSION, ESRD ON HD Diagnosis Discharge Diagnosis (1) Septic shock: Status: Acute Code(s): A41.9 - Sepsis, unspecified organism; R65.21 - Severe sepsis with septic shock Plan Patient is a 72-year-old lady admitted with altered mental status. An assessment of septic shock secondary to catheter associated infection made admitted to the intensive care unit where patient has since been managed 1. Septic shock Secondary to catheter associated infection. Admitted to intensive care unit managed for protocol patient clinical condition however continues to deteriorate. CODE STATUS changed to DNR comfort care. Hospice consulted 2. Hypoglycemia 3. Diabetes mellitus type 2 4. CVA with residual left-sided hemiparesis 5. Coronary artery disease 6. Dyslipidemia 7. Acute metabolic encephalopathy Patient was discharged to hospice in the medical facility Medications at Discharge Home Medications nystatin 100,000 unit/gram topical powder (Nyamyc) 1 applic topical DAILY redness 02/21/22 pantoprazole 40 mg tablet,delayed release 40 mg PO BID #60 tabs 04/26/22 acetaminophen 325 mg tablet 650 mg PO Q6H PRN Pain 08/06/22 megestrol 400 mg/10 mL (40 mg/mL) oral suspension 200 mg PO BID appetite polyvinyl alcohol 1.4 % eye drops (Artificial Tears (polyvinyl alcohol)) 1 drp RIGHT EYE DAILY PRN irritation 08/06/22 sennosides 8.6 mg tablet (senna) 8.6 mg PO BID PRN Constipation 08/06/22 tramadol 50 mg tablet 50 mg PO Q6H PRN Pain 08/06/22 white petrolatum-mineral oil 83 %-15 % eye ointment (Lubrifresh PM) 1 applic RIGHT EYE BID ocular hypertension 08/06/22 chlorhexidine gluconate 2 % towelette 15 ml PO BID #0 ea 08/10/22 fentanyl 12 mcg/hr transdermal patch 12 mcg transdermal Q3D #0 ea 08/10/22 peg [id number] 1 %-0.2 %-0.2 % eye drops (Artificial Tears ([id number])) 2 drp EACH EYE Q4H PRN DRY EYES #0 mL 08/10/22 Physical Exam Narrative GENERAL: Obtunded HEENT: Atraumatic; normocephalic EYES; Anicteric, Normal Conjunctiva NECK; supple, normal thyroid, RESPIRATORY: Diminished to auscultation CARDIOVASCULAR: Regular S1 S2, NEURO: Obtunded Weight / BMI Weight Weight: 92.3 kg Body Mass Index (BMI) 32.2 ABG / Lab / Microbiology Data Result Diagrams: 08/08/22 09:00 08/08/22 09:00 Microbiology: Microbiology 08/06/22 08:40 Blood Culture (Wb) - Chest Blood Culture - Preliminary No growth in 48 hours. 08/06/22 08:45 Blood Culture (Wb) - Left Hand Blood Culture - Preliminary No growth in 48 hours. D/C Instructions Discharge Diet: No restrictions Meaningful Use Info Meaningful Use Diagnoses (Choose all that apply): None applicable Discharge Plan Admission Admit Date/Time: 08/06/22 11:48 Attending Provider: Cj Lopez Primary Care Provider: Jonh Solis Consulting Providers: Lai Muhammad ; Francisco Hameed ; Ash Cabello ; Prateek Villarreal ; Cedric Walker ; Araceli Berkowitz NP ; Leanna Chandra ; Casey Basurto ; Idania Grace ; Cj Shaffer ; Stephany Sharma ; Zoie Baker ; Theresa Gagnon WAREHOUSE ADMINISTRATOR Discharge Orders/Prescriptions Prescriptions: New Artificial Tears(cm-iumr-pjlz) 1-0.2-0.2 % Drops 2 drp EACH EYE Q4H PRN (Reason: DRY EYES) Qty: 0 0RF fentanyl 12 mcg/hr Patch 72 Hour 12 mcg transdermal Q3D Qty: 0 0RF chlorhexidine gluconate 2 % Towelette 15 ml PO BID Qty: 0 0RF Continued nystatin [Nyamyc] 100,000 unit/gram powder 1 applic topical DAILY Protocol: *Topical Application Instructions APPLICATION INSTRUCTIONS: groin/abdominal folds pantoprazole 40 mg tablet,delayed release (DR/EC) 40 mg PO BID Qty: 60 1RF megestrol 400 mg/10 mL (40 mg/mL) Suspension 200 mg PO BID sennosides [senna] 8.6 mg Tablet 8.6 mg PO BID PRN (Reason: Constipation) polyvinyl alcohol [Artificial Tears (polyvin alc)] 1.4 % Drops 1 drp RIGHT EYE DAILY PRN (Reason: irritation) tramadol 50 mg Tablet 50 mg PO Q6H PRN (Reason: Pain) Lubrifresh PM 83-15 % Ointment 1 applic RIGHT EYE BID Discontinued levothyroxine 125 mcg tablet 125 mcg PO QHS Label Comments: take 1 tablet by mouth once daily amlodipine 10 mg Tablet 10 mg PO DAILY aspirin 81 mg Capsule 81 mg PO DAILY atorvastatin 80 MG tablet 80 mg PO QHS polyethylene glycol 3350 17 GM powder in packet 17 g PO DAILY PRN (Reason: Constipation) carvedilol 12.5 mg Tablet 12.5 mg PO BID Rx Instructions: must administer with a meal/food calcium carbonate [Tums] 200 mg calcium (500 mg) Tablet,Chewable 200 mg PO QHS Nephrocaps 1 mg Capsule 1 cap PO DAILY escitalopram oxalate 5 mg Tablet 5 mg PO DAILY cholecalciferol (vitamin D3) 25 mcg (1,000 unit) Tablet 25 mcg PO DAILY No Action acetaminophen 325 mg Tablet 650 mg PO Q6H PRN (Reason: Pain) Referrals / Follow Up: Jonh Solis MD [Primary Care Provider] - Disposition Disposition (needs filled in before D/C Order can be placed): Hospice in Medical Facility Charges/Coding Visit Charges Inpatient E&M: 47466 Disch Hosp
--- NOTE | 2022-08-10 11:56 | CHAPLAIN ---
Type of Pastoral Visit _x__ Initial Visit ___ Follow-up Visit ___ On-call Visit ___ General Patient Visit ___ Spiritual Assessment ___ Family Conference ___ Bereavement ___ Rapid Response ___ Code Blue ___ Other (describe below) Pastoral Care Referral From ___ Patient ___ Family _x__ Nurse ___ Physician ___ Varitypist ___ Concrete Conveyor Operator ___ Other (describe below) Sacrament/Intervention ___ Active listening ___ Anointing ___ Congregational ___ Bereavement ___ Communion ___ Nydia exploration ___ ___ Life review _x__ Prayer ___ Reconciliation ___ Sacrament of Sick _x__ Supportive presence ___ Wedding ___ Other (describe below) Pastoral Comments patient is unresponsive; pt has been seen by this payroll and benefits coordinator in her previous admissions and she welcomes spiritual care support; family members have gathered and support is offered; family had catering driver come for Anointing of the Sick over the weekend; offer of presence and prayer received
--- NOTE | 2022-08-10 15:05 | CHAPLAIN ---
Type of Pastoral Visit ___ Initial Visit _x__ Follow-up Visit ___ On-call Visit ___ General Patient Visit ___ Spiritual Assessment ___ Family Conference _x__ Bereavement ___ Rapid Response ___ Code Blue ___ Other (describe below) Pastoral Care Referral From ___ Patient _x__ Family _x__ Nurse ___ Physician ___ Director Of Cardiology Service Line ___ Scanner Operator ___ Other (describe below) Sacrament/Intervention ___ Active listening ___ Anointing ___ Jain ___ Bereavement ___ Communion ___ Nydia exploration ___ ___ Life review _x__ Prayer ___ Reconciliation ___ Sacrament of Sick _x__ Supportive presence ___ Wedding ___ Other (describe below) Pastoral Comments 1. this bricklayer apprentice met with other family members who were available and offered support through presence and prayer - plan was to transfer patient this afternoon 2. MIXING OPERATOR called this bricklayer apprentice as patient was actively dying before transport could take her (transport on unit getting paperwork when occured); met with family and offered presence and sympathy; quoted Psalm 23 for comfort and gave brief prayer; family thanked this bricklayer apprentice; set up white cart for bereavement; checked back shortly later for any needs of support
--- NOTE | 2022-08-10 15:27 | EXP.PCM_ITS ---
Preliminary Cause of Preliminary Cause of Preliminary Cause of : Septic shock Secondary to catheter associated infection Date of Admission: 08/06/22 Date of : 08/10/22 Principle Diagnosis Problem List: Active and Suspected Problems (Updated 08/06/22 @ 16:[address] Leanna Chandra, DO) Severe protein-calorie malnutrition (Acute) Diabetes mellitus type 2 in obese (Acute) Hypoglycemia (Acute) DM (diabetes mellitus), type 2, uncontrolled (Acute) Septic shock (Acute) Anemia (Acute) Hypotension (Acute) Acute encephalopathy (Acute) Pressure injury of sacral region, stage 1 (Acute) History of cerebrovascular accident (Acute) History of MRSA infection (Acute) ESRD (end stage renal disease) on dialysis (Acute) Altered mental status (Acute) (HFpEF) heart failure with preserved ejection fraction (Acute) Hospital Course Patient is a 72-year-old lady admitted with altered mental status.? An as sessment of septic shock secondary to catheter associated infection made admitted to the intensive care unit patient was managed per protocol with broad- spectrum antibiotic therapy IV fluid resuscitation as well as pressors patient condition however continued to deteriorate despite aggressive treatment. Plan was for patient to have been transferred to hospice in the medical facility patient however was found without spontaneous breathing without heart tones on 08/10/2022 at 1430. Patient was pronounced Visit Charges Inpatient E&M: 64486 Disch Hosp
--- NOTE | 2022-08-10 15:36 | NURSING ---
This RN and SUMMER INTERN Stacey went in room to change due to incontinence of stool. While patient was turned, this RN noted patient having more shalllow breaths, with long periods of apnea. Patient laid back on her back. Family at bedside. Patient DNRCC and was supposed to go home on hospice. No pulse noted, no respirations noted. Second RN Hardeep Guerrier called to the room. No heart sounds auscultated by 2 RNs. Family made aware patient had passed. Time of 1430. Agribusiness Professor Ray called to bedside. Dr. Lopez and Dr. Leanna Chandra notified.
--- NOTE | 2022-08-10 15:56 | CASEMGMT ---
SW was notified that patient . SW notified Jeremiah at Hospice. SW went to patient's room. Patient's family was present. SW provided emotional support. They asked if there was a list of local homes. SARA could not locate one so SARA typed up a list of local homes. Anna Hernandez GENERAL REPAIR MECHANIC JOVAN
== END 2022-08-10 20:30 | DRG 314 ==
LOC: ED 11:42 → ICU 14:27
PROVIDERS: Internal Medicine; Internal Medicine Nephrology; Admitting Provider Internal Medicine; Emergency Provider Emergency Medicine; PCP Family Medicine; Visit Provider Internal Medicine
DX: T82.7XXA Infection and inflammatory reaction due to other cardiac and vascular devices, implants and grafts, initial encounter (principal); A41.9 Sepsis, unspecified organism; R65.21 Severe sepsis with septic shock; G93.41 Metabolic encephalopathy; E43 Unspecified severe protein-calorie malnutrition; N18.6 End stage renal disease; I13.2 Hypertensive heart and chronic kidney disease with heart failure and with stage 5 chronic kidney disease, or end stage renal disease; I50.32 Chronic diastolic (congestive) heart failure; I69.354 Hemiplegia and hemiparesis following cerebral infarction affecting left non-dominant side; E11.649 Type 2 diabetes mellitus with hypoglycemia without coma; E11.51 Type 2 diabetes mellitus with diabetic peripheral angiopathy without gangrene; E11.22 Type 2 diabetes mellitus with diabetic chronic kidney disease; Z79.4 Long term (current) use of insulin; Z99.2 Dependence on renal dialysis; D63.8 Anemia in other chronic diseases classified elsewhere; E88.09 Other disorders of plasma-protein metabolism, not elsewhere classified; L89.151 Pressure ulcer of sacral region, stage 1; I25.10 Atherosclerotic heart disease of native coronary artery without angina pectoris; E78.5 Hyperlipidemia, unspecified; Z82.3 Family history of stroke; Z66 Do not resuscitate; Z74.01 Bed confinement status; Z51.5 Encounter for palliative care; Z86.14 Personal history of Methicillin resistant Staphylococcus aureus infection; Z95.1 Presence of aortocoronary bypass graft
CPT/HCPCS: 70450; 71045; 74018; 80048; 80053; 80202; 82962; 83605; 84443; 85014; 85018; 85025; 85610; 85730; 86850; 86900; 86901; 86920; 87040; 90937; 92610; 93005; 93308; 97110; 97162; 97166; 97802; 97803; 99285; J7030; J7040; J7050; P9016; P9047; A4216; C1751; G0257; J7799; Q5106

== ENCOUNTER → 2022-08-06 | Outpatient (REF) | payer MEDICARE, SELFPAY | LOC: OLS.WHLTSB 05:08 | PROVIDERS: PCP Family Medicine; Visit Provider Family Medicine | DX: G93.41 Metabolic encephalopathy (principal); I69.354 Hemiplegia and hemiparesis following cerebral infarction affecting left non-dominant side; Z99.2 Dependence on renal dialysis; N18.6 End stage renal disease; R78.81 Bacteremia; H05.011 Cellulitis of right orbit; H40.051 Ocular hypertension, right eye ==